=== PATIENT | female | born 1945 | race Caucasian/White ===

== ENCOUNTER 2017-09-09 18:37 | Inpatient (IN) | payer OTHER, MEDICARE ==
[~2017-09-09] VITALS: Ht 162.6 cm; Wt 67.0 kg
[~2017-09-09 18:37] MED LIST: AUGM500T7 PO; DOXY100T PO; HYZA50TA2 PO; NOVOINJ SC
[2017-09-09 18:39] VITALS: BP 153/72; PULSE 98; RESP 14; TEMP 98.8; O2SAT 95
--- NOTE | 2017-09-09 19:28 | PD ---
HPI Chief Complaint: Cardiac Complaint Time Seen by Provider: 19:10 Travel History International Travel<30 days: No Contact w/Intl Traveler<30days: No History of Present Illness HPI Patient is a 71-year-old female presents emergency department for evaluation of shortness of breath she says since November. 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 Sumaya Muniz today for her first appointment and he sent her here for further evaluation. According to the patient and her fianc he wants to do a stress and probably a cath on her. She states that shortness of breath been gradually worsening since November but over the past 3 months it has gotten significantly worse. No chest pain, no GI bleeding symptoms, no abdominal pain no headache. She states symptoms are severe, gradually worsening over the past few months, context is history of congestive heart failure and coronary artery bypass graft PFSH Past Medical History Arthritis: No Asthma: No Blood Disorders: No Anxiety: No Depression: No Heart Rhythm Problems: No Cancer: No Cardiovascular Problems: No High Cholesterol: No Chest Pain: No Congestive Heart Failure: No COPD: No Cerebrovascular Accident: No Diabetes: Yes Diminished Hearing: No GERD: No Glaucoma: No Genitourinary: No Headaches: Yes Hepatitis: No Hiatal Hernia: No Hypertension: Yes Immune Disorder: No Kidney Stones: No Musculoskeletal: No Neurologic: No Psychiatric: No Reproductive: No Respiratory: No Migraines: No Myocardial Infarction: No Renal Failure: No Seizures: No Thyroid Disease: No Ulcer: No Menopausal: Yes : 4 Para: 4 Past Surgical History Abdominal Surgery: Yes (GALLD BLADDER) Appendectomy: No Cardiac Surgery: No Cholecystectomy: Yes Ear Surgery: No Endocrine Surgery: No Eye Surgery: Yes Genitourinary Surgery: No Gynecologic Surgery: Yes (HYSTERECTOMY) Hysterectomy: Yes Oral Surgery: No Pacemaker: No Thoracic Surgery: No Other Surgery: Yes Social History Alcohol Use: No Tobacco Use: No Substance Use: No Allergies-Medications (Allergen,Severity, Reaction): Coded Allergies: codeine (Unverified Allergy, Severe, SEVERE MOOD SWINGS, 03/23/17) etodolac (Unverified Allergy, Severe, Chest Pain, 03/23/17) iodine (Unverified Allergy, Severe, EDEMA, 03/23/17) loratadine (Unverified Allergy, Severe, Severe Dyspnea and swelling, ) metformin (Unverified Allergy, Severe, N/V, 03/23/17) potassium iodide (Unverified Allergy, Severe, EDEMA, 03/23/17) povidone-iodine (Unverified Allergy, Severe, EDEMA, 03/23/17) pseudoephedrine (Unverified Allergy, Severe, THROAT SWELLS, 03/23/17) sodium iodide (Unverified Allergy, Severe, EDEMA, 03/23/17) sodium iodide (Unverified Allergy, Severe, EDEMA, 03/23/17) Sulfa (Sulfonamide Antibiotics) (Unverified Allergy, Mild, 03/23/17) dizzy levofloxacin (Unverified Adverse Reaction, Severe, NAUSEA, VOMITING, DIZZINESS, 03/23/17) sulfamethoxazole (Unverified Adverse Reaction, Severe, NAUSEA, VOMITING, DIZZINESS, 03/23/17) trimethoprim (Unverified Adverse Reaction, Severe, NAUSEA, VOMITING, DIZZINESS, 03/23/17) Uncoded Allergies: Tylenol Sinus (Allergy, Severe, Dyspnea and Swelling, 01/11/09) Reported Meds & Prescriptions Reported Meds & Active Scripts Active Reported Augmentin 500MG/125MG (Amoxicillin/Clavulanate Potassium) 500 Mg Tab 500 Mg PO Q12H Doxycycline Hyclate 100 mg (Doxycycline Hyclate) 100 Mg Tab 100 Mg PO BID Hyzaar 50-12.5 (Losartan Potassium-Hct 50-12.5) 50 Mg/12.5 Mg Tab 1 Tab PO HS Novolog Penfill (Insulin Aspart) 100 Unit/Ml Inj 5 SC DIRECTED <150 no coverage. >150 5 units for everY increments of 50 Review of Systems Except as stated in HPI: all other systems reviewed are Neg Physical Exam Narrative GENERAL: Well-developed, well-nourished, pale SKIN: Focused skin assessment warm/dry. Pale with conjunctival pallor HEAD: Atraumatic. Normocephalic. EYES: Pupils equal and round. No scleral icterus. No injection or drainage. ENT: No nasal bleeding or discharge. Mucous membranes pink and moist. NECK: Trachea midline. No JVD. CARDIOVASCULAR: Regular rate and rhythm. No murmur appreciated. RESPIRATORY: No accessory muscle use. Bibasilar rales. Breath sounds equal bilaterally. GASTROINTESTINAL: Abdomen soft, non-tender, nondistended. Hepatic and splenic margins not palpable. MUSCULOSKELETAL: No obvious deformities. No clubbing. No cyanosis. 2+ pitting edema bilateral lower extremities from the knee Distally.. NEUROLOGICAL: Awake and alert. No obvious cranial nerve deficits. Motor grossly within normal limits. Normal speech. PSYCHIATRIC: Appropriate mood and affect; insight and judgment normal. Data Data Last Documented VS Vital Signs Date Time Temp Pulse Resp B/P (MAP) Pulse Ox O2 Delivery O2 Flow Rate FiO2 09/09/17 20:37 26 98 Nasal Cannula 2.00 09/09/17 20:23 95 09/09/17 18:39 98.8 Orders Orders Electrocardiogram (09/09/17 19:19) B-Type Natriuretic Peptide (09/09/17 19:19) Ckmb (Isoenzyme) Profile (09/09/17 19:19) Complete Blood Count With Diff (09/09/17 19:19) Comprehensive Metabolic Panel (09/09/17 19:19) Magnesium (Mg) (09/09/17 19:19) Prothrombin Time / Inr (Pt) (09/09/17 19:19) Act Partial Throm Time (Ptt) (09/09/17 19:19) Troponin I (09/09/17 19:19) Chest, Single Ap (09/09/17 19:19) Ecg Monitoring (09/09/17 19:19) Iv Access Insert/Monitor (09/09/17 19:19) Oximetry (09/09/17 19:19) Oxygen Administration (09/09/17 19:19) Sodium Chloride 0.9% Flush (Ns Flush) (09/09/17 19:30) Type And Screen (09/09/17 19:47) Furosemide Inj (Lasix Inj) (09/09/17 20:00) Aspirin Chew (Aspirin Chew) (09/09/17 20:15) Clopidogrel (Plavix) (09/09/17 20:15) CKMB (09/09/17 19:40) CKMB% (09/09/17 19:40) Blood Culture (09/09/17 20:37) Ceftriaxone Inj (Rocephin Inj) (09/09/17 20:45) Azithromycin Inj (Zithromax Inj) (09/09/17 20:45) Admit Order (Ed Use Only) (09/09/17 ) Labs Laboratory Tests Test 09/09/17 19:40 White Blood Count 4.9 TH/MM3 Red Blood Count 3.86 MIL/MM3 Hemoglobin 10.8 GM/DL Hematocrit 34.0 % Mean Corpuscular Volume 88.0 FL Mean Corpuscular Hemoglobin 28.0 PG Mean Corpuscular Hemoglobin Concent 31.8 % Red Cell Distribution Width 17.7 % Platelet Count 301 TH/MM3 Mean Platelet Volume 9.2 FL Neutrophils (%) (Auto) 57.9 % Lymphocytes (%) (Auto) 27.9 % Monocytes (%) (Auto) 12.1 % Eosinophils (%) (Auto) 1.0 % Basophils (%) (Auto) 1.1 % Neutrophils # (Auto) 2.8 TH/MM3 Lymphocytes # (Auto) 1.4 TH/MM3 Monocytes # (Auto) 0.6 TH/MM3 Eosinophils # (Auto) 0.0 TH/MM3 Basophils # (Auto) 0.1 TH/MM3 CBC Comment DIFF FINAL Differential Comment Prothrombin Time 11.4 SEC Prothromb Time International Ratio 1.1 RATIO Activated Partial Thromboplast Time 25.5 SEC Blood Urea Nitrogen 37 MG/DL Creatinine 2.06 MG/DL Random Glucose 130 MG/DL Total Protein 7.4 GM/DL Albumin 2.8 GM/DL Calcium Level 9.2 MG/DL Magnesium Level 2.1 MG/DL Alkaline Phosphatase 144 U/L Aspartate Amino Transf (AST/SGOT) 23 U/L Alanine Aminotransferase (ALT/SGPT) 20 U/L Total Bilirubin 0.8 MG/DL Sodium Level 139 MEQ/L Potassium Level 4.0 MEQ/L Chloride Level 107 MEQ/L Carbon Dioxide Level 24.1 MEQ/L Anion Gap 8 MEQ/L Estimat Glomerular Filtration Rate 24 ML/MIN Total Creatine Kinase 120 U/L Creatine Kinase MB 3.8 NG/ML Troponin I LESS THAN 0.02 NG/ML B-Type Natriuretic Peptide 2658 PG/ML [facility] Medical Decision Making Medical Screen Exam Complete: Yes Emergency Medical Condition: Yes Differential Diagnosis CHF, anemia, ACS, [place]. Narrative Course Patient room to the emergency department, given Lasix, aspirin and Plavix per Dr. Muniz's instructions, he would like the patient admitted to the hospital , discussed with patient and her fianc and they are agreeable, basic labs are showing a negative troponin, elevated BNP, creatinine is elevated as well which is new for her. Discussed with Dr. Mckeon for admission and she is agreeable. Diagnosis Primary Impression: Pulmonary edema Additional Impression: Congestive heart failure Admitting Information Admitting Physician Requests: Admit Condition: Everett Dominguez MD Sep 09, 2017 19:28
[2017-09-09] MEDS ORDERED: SODIUM CHLORIDE 0.9% FLUSH 10 ML FLUSH IVF PRN (19:30)
[2017-09-09 19:56] LABS: AUTOMATED NEUTROPHIL # 2.8 TH/MM3 (1.8-7.7); BASOPHIL # 0.1 TH/MM3 (0-0.2); BASOPHIL % 1.1 % (0.0-2.0); HEMOGLOBIN 10.8 GM/DL (11.6-15.3); LYMPH % 27.9 % (9.0-44.0); LYMPHOCYTE # 1.4 TH/MM3 (1.0-4.8); MEAN CORPUSCULAR HGB CONC 31.8 % (32.0-36.0); MEAN PLATELET VOLUME 9.2 FL (7.0-11.0); MONO % 12.1 % (0.0-8.0); MONOCYTE # 0.6 TH/MM3 (0-0.9); NEUT % 57.9 % (16.0-70.0); PLATELET COUNT 301 TH/MM3 (150-450); RED BLOOD COUNT 3.86 MIL/MM3 (4.00-5.30); RED CELL DISTRIBUTION WIDTH 17.7 % (11.6-17.2); WHITE BLOOD COUNT 4.9 TH/MM3 (4.0-11.0)
[2017-09-09] MEDS ORDERED: FUROSEMIDE 40 MG/4 ML VIAL IV PUSH ONE (20:00)
[2017-09-09 20:05] LABS: INTERNATIONAL NORMALIZED RATIO 1.1 RATIO; PROTHROMBIN TIME - PATIENT 11.4 SEC (9.8-11.6)
--- NOTE | 2017-09-09 20:11 | RADRPT ---
EXAM DATE/TIME: 09/09/2017 19:42 [place] COMPARISON: No previous studies available for comparison. INDICATIONS : Shortness of breath, cough, congestion, weakness, and chest pain. MEDICAL HISTORY : Cardiac. SURGICAL HISTORY : CABG. ENCOUNTER: Initial ACUITY: 1 day PAIN SCORE: 5/10 LOCATION: Bilateral chest FINDINGS: Small bilateral pleural effusions are noted. Bibasilar atelectasis and/or infiltrates are noted. The heart is subtly prominent. Median sternotomy wires are noted status post cardiac surgery. CONCLUSION: Small bilateral pleural effusions. Bibasilar atelectasis and/or infiltrates. Mild cardiomegaly. Everett Matute MD on September 09, 2017 at 20:07 Board Certified Radiologist. This report was verified electronically.
[2017-09-09 20:13] LABS: ALBUMIN 2.8 GM/DL (3.4-5.0); BICARBONATE 24.1 MEQ/L (21.0-32.0); BLOOD UREA NITROGEN 37 MG/DL (7-18); CALCIUM 9.2 MG/DL (8.5-10.1); CHLORIDE 107 MEQ/L (98-107); CREATININE 2.06 MG/DL (0.50-1.00); GLOMERULAR FILTRATION RATE 24 ML/MIN (>89); GLUCOSE,RANDOM 130 MG/DL (74-106); MAGNESIUM 2.1 MG/DL (1.5-2.5); SODIUM (NA) 139 MEQ/L (136-145)
[2017-09-09] MEDS ORDERED: CLOPIDOGREL 300 MG TAB PO ONE (20:15)
[2017-09-09] MEDS ORDERED: ASPIRIN 81 MG CHEW TAB CHEW ONE (20:15)
[2017-09-09 20:18] LABS: ALKALINE PHOSPHATASE 144 U/L (45-117); ALT (GPT) 20 U/L (10-53); AST (GOT) 23 U/L (15-37); TOTAL BILIRUBIN ADULT 0.8 MG/DL (0.2-1.0); TOTAL PROTEIN 7.4 GM/DL (6.4-8.2); TROPONIN I LESS THAN 0.02 NG/ML (0.02-0.05)
[2017-09-09 20:23] VITALS: BP 165/99; PULSE 95; RESP 26; O2SAT 98
[2017-09-09 20:37] VITALS: RESP 26; O2SAT 98
[2017-09-09] MEDS ORDERED: cefTRIAXone INJ 1,000 MG in SODIUM CHLORIDE 0.9% INJ 100 ML IV ONE (20:45)
[2017-09-09] MEDS ORDERED: AZITHROMYCIN INJ 500 MG in SODIUM CHLOR 0.9% 250 ML INJ 250 ML IV ONE (20:45)
[2017-09-09] MEDS ORDERED: SENNOSIDES 8.6 MG TAB PO PRN (22:00)
[2017-09-09] MEDS ORDERED: SODIUM CHLORIDE 0.9% FLUSH 10 ML FLUSH IV FLUSH PRN (22:00)
[2017-09-09] MEDS ORDERED: LACTULOSE SYRUP 20 GM/30 ML CUP PO PRN (22:00)
[2017-09-09] MEDS ORDERED: NALOXONE HCL 0.4 MG/ML AMP IV PUSH PRN (22:00)
[2017-09-09] MEDS ORDERED: ONDANSETRON HCL 4 MG/2 ML VIAL IVP PRN (22:00)
[2017-09-09] MEDS ORDERED: BISACODYL 10 MG SUPP RECTAL PRN (22:00)
[2017-09-09 22:15] LABS: AMORPHOUS SEDIMENT, URINE RARE; BACTERIA, URINE MANY /hpf; BILIRUBIN, URINE NEG (NEG); BLOOD, URINE SMALL (NEG); GLUCOSE,URINE NEG (NEG); HYALINE CAST, URINE 6 /lpf (RARE); KETONE, URINE TRACE mg/dL (NEG); NITRITE,URINE NEG (NEG); PH, URINE 6.5 (5.0-8.5); SQUAMOUS EPITHELIAL CELL URINE 20 /hpf (0-5); URINE COLOR YELLOW (YELLW/STRAW); URINE LEUKOCYTE ESTERASE LARGE (NEG); WHITE BLOOD CELL CLUMPS OCC
[2017-09-09] MEDS ORDERED: GLUCAGON 1 MG/ML VIAL OTHER PRN (22:15)
[2017-09-09] MEDS ORDERED: DEXTROSE 50% IN WATER 50 ML VIAL(D50) IV PUSH PRN (22:15)
[2017-09-09 22:21] VITALS: BP 146/68; PULSE 98; RESP 20; O2SAT 98
[2017-09-10] VITALS (19 sets, daily range): BP systolic 128–152; BP diastolic 54–79; PULSE 82–94; RESP 16–24; TEMP 96.3–98; O2SAT 94–100
--- NOTE | 2017-09-10 02:00 | HHI.HP ---
[facility] Cate Hughes MD Admission Diagnosis CHF EXACERBATION. Diagnoses: Travel History International Travel<30 Days: No Contact w/Intl Traveler <30 Da: No Traveled to Known Affected Are: No History of Present Illness 71-year-old female with a past medical history significant for CHF (no recent echo for comparison), COPD, insulin-dependent diabetes mellitus, CAD, PVD and hyperlipidemia presents to the emergency department after being sent by her chute puller, Dr. Muniz. The patient reports a 3 to four-month history of progressively worsening shortness of breath. She states it is worse with exertion and that she can barely walk. She also reports an inability to lie flat without gasping for air. The patient also endorses chest pain/pressure that is intermittent and last occurred 1-2 hours ago. She endorses nausea and chills. Review of Systems Except as stated in HPI: all other systems reviewed are Neg Past Family Social History Past Medical History CHF CK D IDDM CAD PVD HLD Past Surgical History CABG 3 Stent 1 Leg stent Reported Medications Reported Meds & Active Scripts Active Reported Augmentin (Amoxicillin/Clavulanate Potassium) 500 Mg Tab 500 Mg PO Q12H Doxycycline Hyclate 100 Mg Tab 100 Mg PO BID Hyzaar 50-12.5 (Losartan Potassium-Hct 50-12.5) 50 Mg/12.5 Mg Tab 1 Tab PO HS Novolog Penfill (Insulin Aspart) Inj 5 SC DIRECTED <150 no coverage. >150 5 units for everY increments of 50 Allergies: Coded Allergies: codeine (Unverified Allergy, Severe, SEVERE MOOD SWINGS, 03/23/17) etodolac (Unverified Allergy, Severe, Chest Pain, 03/23/17) iodine (Unverified Allergy, Severe, EDEMA, 03/23/17) loratadine (Unverified Allergy, Severe, Severe Dyspnea and swelling, ) metformin (Unverified Allergy, Severe, N/V, 03/23/17) potassium iodide (Unverified Allergy, Severe, EDEMA, 03/23/17) povidone-iodine (Unverified Allergy, Severe, EDEMA, 03/23/17) pseudoephedrine (Unverified Allergy, Severe, THROAT SWELLS, 03/23/17) sodium iodide (Unverified Allergy, Severe, EDEMA, 03/23/17) sodium iodide (Unverified Allergy, Severe, EDEMA, 03/23/17) Sulfa (Sulfonamide Antibiotics) (Unverified Allergy, Mild, 03/23/17) dizzy levofloxacin (Unverified Adverse Reaction, Severe, NAUSEA, VOMITING, DIZZINESS, 03/23/17) sulfamethoxazole (Unverified Adverse Reaction, Severe, NAUSEA, VOMITING, DIZZINESS, 03/23/17) trimethoprim (Unverified Adverse Reaction, Severe, NAUSEA, VOMITING, DIZZINESS, 03/23/17) Uncoded Allergies: Tylenol Sinus (Allergy, Severe, Dyspnea and Swelling, 01/11/09) Family History Denies family history of DM/CAD Social History Denies alcohol, tobacco and illicit drugs Physical Exam Vital Signs Vital Signs Date Time Temp Pulse Resp B/P (MAP) Pulse Ox O2 Delivery O2 Flow Rate FiO2 09/10/17 00:47 09/10/17 00:30 97.4 94 20 143/71 (95) 100 09/09/17 22:21 98 20 146/68 (94) 98 Nasal Cannula 2.00 09/09/17 20:37 26 98 Nasal Cannula 2.00 09/09/17 20:37 98 Nasal Cannula 2.00 09/09/17 20:23 95 26 165/99 (121) 98 09/09/17 18:39 98.8 98 14 153/72 (99) 95 Physical Exam GENERAL: female sitting up in bed in mild distress SKIN: No rashes, ecchymoses or lesions. Cool and dry. HEAD: Atraumatic. Normocephalic. No temporal or scalp tenderness. EYES: Pupils equal round and reactive. Extraocular motions intact. No scleral icterus. No injection or drainage. ENT: Nose without bleeding, purulent drainage or septal hematoma. Throat without erythema, tonsillar hypertrophy or exudate. Uvula midline. Airway patent. NECK: Trachea midline. No JVD or lymphadenopathy. Supple, nontender, no meningeal signs. CARDIOVASCULAR: Regular rate and rhythm without murmurs, gallops, or rubs. RESPIRATORY: Bilateral crackles. GASTROINTESTINAL: Abdomen soft, non-tender, nondistended. No hepato-splenomegaly , or palpable masses. No guarding. MUSCULOSKELETAL: 2+ pitting edema to the knees. No calf tenderness. NEUROLOGICAL: Awake and alert. Cranial nerves II through XII intact. Motor and sensory grossly within normal limits. Normal speech. Laboratory Laboratory Tests Test 09/09/17 19:40 09/09/17 21:50 White Blood Count 4.9 Red Blood Count 3.86 Hemoglobin 10.8 Hematocrit 34.0 Mean Corpuscular Volume 88.0 Mean Corpuscular Hemoglobin 28.0 Mean Corpuscular Hemoglobin Concent 31.8 Red Cell Distribution Width 17.7 Platelet Count 301 Mean Platelet Volume 9.2 Neutrophils (%) (Auto) 57.9 Lymphocytes (%) (Auto) 27.9 Monocytes (%) (Auto) 12.1 Eosinophils (%) (Auto) 1.0 Basophils (%) (Auto) 1.1 Neutrophils # (Auto) 2.8 Lymphocytes # (Auto) 1.4 Monocytes # (Auto) 0.6 Eosinophils # (Auto) 0.0 Basophils # (Auto) 0.1 CBC Comment DIFF FINAL Differential Comment Prothrombin Time 11.4 Prothromb Time International Ratio 1.1 Activated Partial Thromboplast Time 25.5 Blood Urea Nitrogen 37 Creatinine 2.06 Random Glucose 130 Total Protein 7.4 Albumin 2.8 Calcium Level 9.2 Magnesium Level 2.1 Alkaline Phosphatase 144 Aspartate Amino Transf (AST/SGOT) 23 Alanine Aminotransferase (ALT/SGPT) 20 Total Bilirubin 0.8 Sodium Level 139 Potassium Level 4.0 Chloride Level 107 Carbon Dioxide Level 24.1 Anion Gap 8 Estimat Glomerular Filtration Rate 24 Total Creatine Kinase 120 Creatine Kinase MB 3.8 Troponin I LESS THAN 0.02 B-Type Natriuretic Peptide 2658 Urine Color YELLOW Urine Turbidity CLOUDY Urine pH 6.5 Urine Specific [place] 1.015 Urine Protein 300 Urine Glucose (UA) NEG Urine Ketones TRACE Urine Occult Blood SMALL Urine Nitrite NEG Urine Bilirubin NEG Urine Urobilinogen LESS THAN 2.0 Urine Leukocyte Esterase LARGE Urine RBC 5 Urine WBC Urine WBC Clumps OCC Urine Squamous Epithelial Cells 20 Urine Amorphous Sediment RARE Urine Bacteria MANY Urine Hyaline Casts 6 Microscopic Urinalysis Comment CULTURE INDICATED Date/Time Source Procedure Growth Status 09/09/17 21:25 Blood Peripheral Aerobic Blood Culture Pending Received 09/09/17 21:25 Blood Peripheral Anaerobic Blood Culture Pending Received 09/09/17 21:50 Urine Random Urine Urine Culture Pending Received Result Diagram: 09/09/17193909/09/171939 Caprini VTE Risk Assessment Caprini VTE Risk Assessment: Mod/High Risk (score >= 2) Caprini Risk Assessment Model Point Value = 1 Point Value = 2 Point Value = 3 Point Value = 5 Age 41-60 Minor surgery BMI > 25 kg/m2 Swollen legs Varicose veins or History of unexplained or recurrent spontaneous Oral contraceptives or hormone replacement Sepsis (< 1 month) Serious lung disease, including pneumonia (< 1 month) Abnormal pulmonary function Acute myocardial infarction Congestive heart failure (< 1 month) History of inflammatory bowel disease Medical patient at bed rest Age 61-74 Arthroscopic surgery Major open surgery (> 45 min) Laparoscopic surgery (> 45 min) Malignancy Confined to bed (> 72 hours) Immobilizing plaster cast Central venous access Age >= 75 History of VTE Family history of VTE Factor V Leiden Prothrombin [id number] Lupus anticoagulant Anticardiolipin antibodies Elevated serum homocysteine Heparin-induced thrombocytopenia Other congenital or acquired thrombophilia Stroke (< 1 month) Elective arthroplasty Hip, pelvis, or leg fracture Acute spinal cord injury (< 1 month) Prophylaxis Regimen Total Risk Factor Score Risk Level Prophylaxis Regimen 0-1 Low Early ambulation 2 Moderate Order ONE of the following: *Sequential Compression Device (SCD) *Heparin 5000 units SQ BID 3-4 Higher Order ONE of the following medications: *Heparin 5000 units SQ TID *Enoxaparin/Lovenox 40 mg SQ daily (WT < 150 kg, CrCl > 30 mL/min) *Enoxaparin/Lovenox 30 mg SQ daily (WT < 150 kg, CrCl > 10-29 mL/min) *Enoxaparin/Lovenox 30 mg SQ BID (WT < 150 kg, CrCl > 30 mL/min) AND/OR *Sequential Compression Device (SCD) 5 or more Highest Order ONE of the following medications: *Heparin 5000 units SQ TID (Preferred with Epidurals) *Enoxaparin/Lovenox 40 mg SQ daily (WT < 150 kg, CrCl > 30 mL/min) *Enoxaparin/Lovenox 30 mg SQ daily (WT < 150 kg, CrCl > 10-29 mL/min) *Enoxaparin/Lovenox 30 mg SQ BID (WT < 150 kg, CrCl > 30 mL/min) AND *Sequential Compression Device (SCD) Assessment and Plan Assessment and Plan Assessment/plan: 1. CHF Chest x-ray significant for small bilateral pleural effusions, personally reviewed BNP 2658 IV Lasix Monitor I's and O's Supplemental oxygen when necessary 2. Pneumonia Bibasilar atelectasis versus infiltrate Rocephin/azithromycin DuoNeb's 3. Chest pain/CAD Resolved this time EKG pending Initial troponin negative ACS rule out pending; serial troponins/EKGs Cardiology consulted, appreciate recommendations - patient's chute puller is Dr. Muniz 4. Insulin-dependent diabetes mellitus Sliding scale insulin as patient nothing by mouth Monitor blood glucose 5. Chronic kidney disease Creatinine 2.06, baseline unknown Monitor renal function 6. CAD/PVD/HLD Continue home medications once medication reconciliation completed FEN NPO Electrolytes: monitor and replete prn Heparin Roz Mckeon MD Sep 10, 2017 02:00
[2017-09-10] MEDS ORDERED: FURO20TA PO (02:19)
[2017-09-10 02:38] LABS: TROPONIN I LESS THAN 0.02 NG/ML (0.02-0.05)
[2017-09-10 05:00] LABS: BASOPHIL % 0.8 % (0.0-2.0); EOSINOPHIL # 0.1 TH/MM3 (0-0.4); EOSINOPHIL % 1.6 % (0.0-4.0); HEMATOCRIT 31.2 % (35.0-46.0); HEMOGLOBIN 10.1 GM/DL (11.6-15.3); LYMPH % 35.2 % (9.0-44.0); LYMPHOCYTE # 1.5 TH/MM3 (1.0-4.8); MEAN CELL VOLUME 87.7 FL (80.0-100.0); MEAN CORPUSCULAR HEMOGLOBIN 28.4 PG (27.0-34.0); MEAN CORPUSCULAR HGB CONC 32.3 % (32.0-36.0); MEAN PLATELET VOLUME 8.9 FL (7.0-11.0); MONO % 15.5 % (0.0-8.0); MONOCYTE # 0.7 TH/MM3 (0-0.9); NEUT % 46.9 % (16.0-70.0); PLATELET COUNT 275 TH/MM3 (150-450); RED BLOOD COUNT 3.56 MIL/MM3 (4.00-5.30); RED CELL DISTRIBUTION WIDTH 18.3 % (11.6-17.2); WHITE BLOOD COUNT 4.4 TH/MM3 (4.0-11.0)
[2017-09-10 05:15] LABS: BICARBONATE 22.1 MEQ/L (21.0-32.0); CALCIUM 8.8 MG/DL (8.5-10.1); CREATININE 1.96 MG/DL (0.50-1.00)
[2017-09-10] MEDS: INSULIN ASPART SUPPLEMENTAL SCALE SQ SCH ×3 (08:00→20:49)
[2017-09-10] MEDS: FUROSEMIDE 40 MG/4 ML VIAL IV PUSH SCH ×2 (09:25→18:07)
[2017-09-10] MEDS: SODIUM CHLORIDE 0.9% FLUSH 10 ML FLUSH IV FLUSH SCH ×2 (09:26→20:46)
[2017-09-10] MEDS: HEPARIN SODIUM - SQ 10,000 UNITS/ML VIAL SQ SCH ×2 (09:26→20:49)
[2017-09-10 11:27] LABS: TROPONIN I LESS THAN 0.02 NG/ML (0.02-0.05)
--- NOTE | 2017-09-10 13:01 | MB ---
cc: SHRAVAN SANDHU DO DATE OF CONSULTATION 09/10/2017 REASON FOR CONSULTATION Congestive heart failure. HISTORY OF PRESENT ILLNESS Helene Sanchez is a pleasant 71-year-old female who I just met in the office yesterday for the first time and while there, she was complaining of significant shortness of breath, inability to lay down, possible fevers and chills and because of this, I sent her to the emergency room as she appeared to be in acute systolic heart failure not responding to p.o. Lasix. Her primary care physician was seeing her and increased her Lasix to three times a day, but at that time, she was not able to urinate much and so was back down to once a day. Since last night. she states that she has been doing well and breathing better. She denies any chest pain. She apparently told the hospitalist that she had chest pain occasionally, but when talking to her she points to the umbilical/epigastric region. PAST MEDICAL HISTORY 1. Acute on chronic congestive heart failure. 2. CKD 3. Diabetes mellitus 4. CAD 5. Peripheral vascular disease 6. Hyperlipidemia PAST SURGICAL HISTORY 1. CABG x3. 2. Recent drug-eluting stent to obtuse marginal (November 2016 at [facility]) 3. Previous stenting of her legs. ALLERGIES 1. CODEINE 2. ETODOLAC 3. IODINE 4. LORATADINE 5. METFORMIN 6. POTASSIUM 7. POVIDONE 8. PSEUDOEPHEDRINE 9. LEVOFLOXACIN 10. SULFAMETHOXAZOLE 11. TRIMETHOPRIM MEDICATIONS 1. Augmenting 500 mg twice a day 2. Doxycycline 100 mg b.i.d. 3. Losartan/hydrochlorothiazide 50/12.5 mg every night 4. Lasix 20 mg daily 5. Insulin 5 units subcu as directed FAMILY HISTORY Denies premature coronary artery disease or sudden cardiac within the family. SOCIAL HISTORY Previously smoked, but quit a number of months ago. Denies alcohol or drug abuse. REVIEW OF SYSTEMS 14-systems were reviewed including osteopathic pertinent positives and negatives as above, otherwise negative. PHYSICAL EXAMINATION VITAL SIGNS: Temperature 97.5, heart rate 90, blood pressure 147/68, respirations 20, pulse ox 97% on two liters. GENERAL: In general, the patient appears well in no acute distress, alert awake and oriented x3. HEAD, EYES, EARS, NOSE, AND THROAT: Extraocular muscles intact. Mucous membranes moist. NECK: Supple. No JVD at 45 degrees. No carotid bruits heard bilaterally. Carotid upstroke is brisk in nature. HEART: Regular rate and rhythm. Positive first and second heart sounds with no murmurs, gallops or rubs. LUNGS: Decreased breath sounds bilaterally with minimal rales at the bases. ABDOMEN: Soft, nontender, nondistended. No organomegaly noted. EXTREMITIES: Show trace to 1+ pitting edema bilaterally. NEUROLOGIC: No focal deficits. SKIN: Warm, dry and intact. OSTEOPATHIC: No kyphoscoliosis, lordosis or paraspinal tender points. LABORATORY FINDINGS Hemoglobin 10.1, hematocrit 31.2, platelets 275. Potassium 4.2, BUN 38, creatinine 1.96, troponin negative x3. BNP 2658. Electrocardiogram (September 10, 2017 at the 02:09) sinus rhythm, ST-T wave changes laterally. Compared to previous EKG in my office from March, no significant change. IMPRESSION 1. Acute on chronic congestive heart failure, unsure at this time whether systolic or diastolic in nature. 2. Possible pneumonia. 3. Coronary artery disease with a history of coronary artery bypass grafting. 4. Diabetes mellitus 5. Acute kidney injury on chronic kidney disease. 6. History of peripheral vascular disease. RECOMMENDATIONS 1. Ms. Sanchez appeared to have acute on chronic congestive heart failure and she will need to be diuresed. I believe that she got into trouble because of the bioavailability of oral Lasix and swelling of her abdomen. On discharge, she should most likely be placed on either Bumex or torsemide. 2. She previously was on aspirin and Effient, but was told by both her primary care physician and strapping machine operator that she only need to be on Effient. She then stopped Effient because she felt like she was allergic to and so she has been on no antiplatelet agents. On arrival to the emergency room, she was reloaded with aspirin and Plavix and can stay on aspirin 81 mg and Plavix 75 mg daily. 3. We will check a 2-D echo to look at her overall left ventricular function, cardiac structure and possible valvopathies. 4. Overall, her troponins have been negative showing no acute coronary syndrome. I did discuss with her consideration of stress testing to rule out significant ischemia, but she believes that the last time she had a stress test that it injured her kidneys and she will not go through with this. Overall, I think that she does not need cardiac catheterization at this time as I believe that this episode is most likely due to her having trouble with her Lasix. 5. My other concern was with her coughing immensely as well as bringing up sputum. She has been placed on antibiotics per the primary team. 6. Further recommendations will be made based on the hospital course. Thank you for allowing me to see Helene Sanchez. If there are any questions, please do not hesitate to call. Shravan Sandhu DO VGP/DJL /12:11 PM /12:30 PM
--- NOTE | 2017-09-10 15:34 | PD.WCN.NOT ---
Wound Consult Description: Consult placed for WOUND MANAGMENT of bilateral feet per GABRIELA Thomas Communicated with: Dr Bernard Yepez, RN Patient Recommendation: Apply skin barrier film to bilateral lower extremity dry wound beds BID and PRN and leave open to air Follow up with Dr Pool Podiatry outpatient upon discharge. Additional Information: Patient seen on for evaluation of bilateral feet wounds. There are no open wounds noted to bilateral feet. There is intact black eschar noted to the 4th digit on right foot measuring ~0.3cm x 0.6cm x 0cm that was left open to air. There is discoloration and dryness noted to left plantar/trans met head amp site that was left open to air and recommended to have skin barrier film applied BID and PRN and left open to air. Patient states that she sees Dr Pool in [place] [facility] as an outpatient and the last dressing orders she obtained were for a vinegar solution for cleansing and to apply Betadine and leave open to air. Upon reading the patients allergies it is noted that the patient is allergic to povidone-iodine. Therefore Betadine is not recommended at this time until patient allergies can be confirmed. Attempted to contact Physician office to confirm dressing changes, however fiction writer was on hold for an inconsiderate amount of time and was unable to confirm that patient was given instructions for Povidone-Iodine with an allergy. Dr Estrada paged for recommendations and notification of patient at home treatment vs fiction writer recommendations. Nataly Joiner [facility] Sep 10, 2017 15:34
[2017-09-10] MEDS ORDERED: PILL SPLITTER OTHER PRN (18:00)
--- NOTE | 2017-09-10 19:43 | EKG ---
Date Performed: 09/10/2017 Time Performed: 02:09:56 PTAGE: 71 years EKG: Sinus rhythm Extensive ST-T changes may be due to myocardial ischemia Abnormal ECG Since the prior tracing, there has been no significant change PREVIOUS TRACING : 09/09/2017 19.54 DOCTOR: Osiel Pérez Interpretating Date/Time 09/10/2017 19:42:33
--- NOTE | 2017-09-10 19:55 | EKG ---
Date Performed: 09/09/2017 Time Performed: 19:54:01 PTAGE: 71 years EKG: Sinus rhythm ST DEVIATION AND MODERATE T-WAVE ABNORMALITY, CONSIDER LATERAL ISCHEMIA Anterior ST-T wave change is more prominent from the prior tracing Clinical correlation is recommended ABNORMAL ECG PREVIOUS TRACING : 01/14/2012 07.27 DOCTOR: Osiel Pérez Interpretating Date/Time 09/10/2017 19:53:54
[2017-09-10] MEDS: cefTRIAXone INJ 1,000 MG in SODIUM CHLORIDE 0.9% INJ 100 ML IV SCH (20:46)
[2017-09-10] MEDS: LOSARTAN 50 MG TAB PO SCH (20:47)
[2017-09-10] MEDS: HYDROCHLOROTHIAZIDE 12.5 MG CAP PO SCH (20:47)
[2017-09-10] MEDS ORDERED: [UNRECOGNIZED DRUG - OTHER] PO SCH (21:00)
[2017-09-10] MEDS: AZITHROMYCIN INJ 250 MG in SODIUM CHLOR 0.9% 250 ML INJ 250 ML IV SCH (21:50)
[2017-09-11] VITALS (25 sets, daily range): BP systolic 121–157; BP diastolic 60–75; PULSE 82–95; RESP 17–18; TEMP 96.6–98.2; O2SAT 94–98
[2017-09-11 04:38] LABS: AUTOMATED NEUTROPHIL # 2.1 TH/MM3 (1.8-7.7); BASOPHIL # 0.1 TH/MM3 (0-0.2); BASOPHIL % 1.3 % (0.0-2.0); EOSINOPHIL # 0.1 TH/MM3 (0-0.4); EOSINOPHIL % 1.4 % (0.0-4.0); HEMATOCRIT 32.6 % (35.0-46.0); HEMOGLOBIN 10.3 GM/DL (11.6-15.3); LYMPH % 35.2 % (9.0-44.0); LYMPHOCYTE # 1.5 TH/MM3 (1.0-4.8); MEAN CELL VOLUME 88.1 FL (80.0-100.0); MEAN CORPUSCULAR HEMOGLOBIN 27.9 PG (27.0-34.0); MEAN CORPUSCULAR HGB CONC 31.7 % (32.0-36.0); MONO % 14.4 % (0.0-8.0); MONOCYTE # 0.6 TH/MM3 (0-0.9); NEUT % 47.7 % (16.0-70.0); PLATELET COUNT 306 TH/MM3 (150-450); RED CELL DISTRIBUTION WIDTH 18.3 % (11.6-17.2); WHITE BLOOD COUNT 4.3 TH/MM3 (4.0-11.0)
[2017-09-11 05:09] LABS: ALBUMIN 2.6 GM/DL (3.4-5.0); ALT (GPT) 16 U/L (10-53); AST (GOT) 19 U/L (15-37); BICARBONATE 21.5 MEQ/L (21.0-32.0); BLOOD UREA NITROGEN 35 MG/DL (7-18); CALCIUM 8.7 MG/DL (8.5-10.1); CHLORIDE 108 MEQ/L (98-107); CREATININE 2.06 MG/DL (0.50-1.00); GLOMERULAR FILTRATION RATE 24 ML/MIN (>89); GLUCOSE,RANDOM 97 MG/DL (74-106); SODIUM (NA) 139 MEQ/L (136-145)
[2017-09-11 05:10] LABS: ALKALINE PHOSPHATASE 127 U/L (45-117); TOTAL BILIRUBIN ADULT 0.5 MG/DL (0.2-1.0); TOTAL PROTEIN 7.2 GM/DL (6.4-8.2)
[2017-09-11] MEDS: INSULIN ASPART SUPPLEMENTAL SCALE SQ SCH ×4 (08:00→20:43)
[2017-09-11] MEDS: RESP: ALBUTEROL 2.5 MG/IPRATROPIUM 0.5 MG NEB (SCH) NEB ×2 (08:18→15:42)
--- NOTE | 2017-09-11 08:21 | HHI.PR ---
Subjective Remarks Patient seen and examined this morning. Temperature 96.6, pulse 93, respiratory rate 18, blood pressure 157/75, pulse ox 94 on room air. She is sitting in a chair comfortably. She reports that her symptoms are improving. She's no longer feeling as short of breath. She agrees that her swelling in her abdomen and legs has greatly improved. She feels that the oral Lasix was not helping her, however the IV Lasix is working really well. She thinks she is better however not back to baseline or ready to be discharged at this time. Objective Vitals Vital Signs Date Time Temp Pulse Resp B/P (MAP) Pulse Ox O2 Delivery O2 Flow Rate FiO2 09/11/17 07:15 96.6 93 18 157/75 (102) 94 09/11/17 06:08 83 09/11/17 05:02 85 09/11/17 04:02 92 09/11/17 03:25 97.2 87 17 155/74 (101) 97 09/11/17 03:06 92 09/11/17 02:18 90 09/11/17 01:18 82 09/11/17 00:02 88 09/10/17 23:59 96.3 91 18 142/69 (93) 98 09/10/17 23:59 88 09/10/17 22:00 94 09/10/17 21:00 90 09/10/17 20:15 90 09/10/17 19:45 97 09/10/17 19:30 96.9 90 17 128/54 (78) 94 09/10/17 19:16 88 09/10/17 15:30 97.9 90 16 150/70 (96) 96 09/10/17 12:00 98.0 89 16 152/68 (96) 95 I/O 09/10/17 09/10/17 09/10/17 09/11/17 09/11/17 09/11/17 07:00 15:00 23:00 07:00 15:00 23:00 Intake Total 250 ml 600 ml 360 ml Output Total 200 ml 600 ml 600 ml Balance 50 ml 0 ml -240 ml Intake Oral 0 ml 600 ml 360 ml IV Total 250 ml Output Urine Total 200 ml 600 ml 600 ml Emesis 0 ml # Voids 2 1 # Bowel Movements 0 0 1 Result Diagram: 09/11/17 0335 09/11/17 0335 Imaging Last Impressions Chest X-Ray 09/09/171918 Signed Impressions: Service Date/Time: September 19:42 - CONCLUSION: Small bilateral pleural effusions. Bibasilar atelectasis and/or infiltrates. Mild cardiomegaly. Everett Matute MD Objective Remarks GENERAL: female sitting up in bed in mild distress SKIN: No rashes, ecchymoses or lesions. Cool and dry. HEAD: Atraumatic. Normocephalic. No temporal or scalp tenderness. EYES: Pupils equal round and reactive. Extraocular motions intact. No scleral icterus. No injection or drainage. ENT: Nose without bleeding, purulent drainage or septal hematoma. Throat without erythema, tonsillar hypertrophy or exudate. Uvula midline. Airway patent. NECK: Trachea midline. No JVD or lymphadenopathy. Supple, nontender, no meningeal signs. CARDIOVASCULAR: Regular rate and rhythm without murmurs, gallops, or rubs. RESPIRATORY: Bilateral crackles. GASTROINTESTINAL: Abdomen soft, non-tender, nondistended. No hepato-splenomegaly , or palpable masses. No guarding. MUSCULOSKELETAL: 2+ pitting edema to the mid shins. No calf tenderness. NEUROLOGICAL: Awake and alert. Cranial nerves II through XII intact. Motor and sensory grossly within normal limits. Normal speech. Medications and IVs Current Medications Medications (Trade) Dose Ordered Sig/Briana Route Start Time Stop Time Status Last Admin (NS Flush) 2 ml UNSCH PRN IV FLUSH 09/09/17 22:00 (NS Flush) 2 ml BID IV FLUSH 09/10/17 09:00 09/10/17 20:46 (Tylenol) 650 mg Q4H PRN PO 09/09/17 22:00 (Zofran Inj) 4 mg Q6H PRN IVP 09/09/17 22:00 (Narcan Inj) 0.4 mg UNSCH PRN IV PUSH 09/09/17 22:00 (Milk Of Magnesia Liq) 30 ml Q12H PRN PO 09/09/17 22:00 (Senokot) 17.2 mg Q12H PRN PO 09/09/17 22:00 (Dulcolax Supp) 10 mg DAILY PRN RECTAL 2/1/18 22:00 (Lactulose Liq) 30 ml DAILY PRN PO 09/09/17 22:00 (Lasix Inj) 40 mg BID@,18 IV PUSH 09/10/17 09:00 09/10/17 18:07 Ceftriaxone Sodium 1000 mg/ Sodium Chloride 100 ml @ 200 mls/hr Q24H IV 09/10/17 21:00 09/10/17 20:46 Azithromycin 250 mg/Sodium Chloride 250 ml @ 250 mls/hr Q24H IV 09/10/17 22:00 09/10/17 21:50 (D50w (Vial) Inj) 50 ml UNSCH PRN IV PUSH 09/09/17 22:15 (Glucagon Inj) 1 mg UNSCH PRN OTHER 09/09/17 22:15 (NovoLOG SUPPLEMENTAL SCALE) 1 ACHS SLIDING SCALE SQ 09/10/17 08:00 09/10/17 18:06 (Duoneb Neb) 1 ampule Q4HR NEB PRN NEB 09/10/17 02:00 (Heparin Inj) 5,000 units Q12HR SQ 09/10/17 09:00 09/10/17 20:49 (Aspirin Chew) 81 mg DAILY CHEW 09/11/17 09:00 (Plavix) 75 mg DAILY PO 09/11/17 09:00 (Spiriva Inh) 18 mcg DAILY INH 09/11/17 09:00 (Duoneb Neb) 1 ampule Q8HR WHILE AWAKE NEB NEB 09/11/17 08:00 (Claritin) 5 mg DAILY PO 09/11/17 09:00 (Cozaar) 50 mg HS PO 09/10/17 21:00 09/10/17 20:47 (Microzide) 12.5 mg HS PO 09/10/17 21:00 09/10/17 20:47 (Pill Splitter) 1 ea UNSCH PRN OTHER 09/10/17 18:00 A/P Problem List: (1) CHF (congestive heart failure) ICD Code: I50.9 - Heart failure, unspecified Status: Acute Plan: This is a 71-year-old female with history of chronic congestive heart failure, chronic kidney disease, insulin-dependent diabetes, and CAD. She is being admitted for acute on chronic congestive heart failure exacerbation 1. CHF Chest x-ray significant for small bilateral pleural effusions, personally reviewed Cardiology consulted, recommendations appreciated BNP 2658 IV Lasix Monitor I's and O's Supplemental oxygen when necessary 2-D echo pending Upon discharge anticipate transition to Bumex or Torsemide 2. Pneumonia Bibasilar atelectasis versus infiltrate Rocephin/azithromycin DuoNeb's 3. Chest pain/CAD Resolved this time Initial troponin negative ACS rule out pending; troponins trended negative Cardiology consulted, appreciate recommendations - patient's director of sales is Dr. Muniz 4. Insulin-dependent diabetes mellitus Sliding scale insulin as patient nothing by mouth Monitor blood glucose 5. Chronic kidney disease Creatinine 2.06, baseline unknown Monitor renal function 6. CAD/PVD/HLD Continue aspirin and Plavix 7. UA concerning for UTI Urine cultures pending Antibiotics as above FEN NPO Electrolytes: monitor and replete prn Heparin (2) Pneumonia ICD Code: J18.9 - Pneumonia, unspecified organism Status: Acute (3) CAD (coronary artery disease) ICD Code: I25.10 - Atherosclerotic heart disease of [place] coronary artery without angina pectoris (4) Insulin dependent diabetes mellitus ICD Code: E11.9 - Type 2 diabetes mellitus without complications; Z79.4 - computer terminal operator (current) use of insulin (5) Chronic kidney disease ICD Code: N18.9 - Chronic kidney disease, unspecified Problem Qualifiers (1) CHF (congestive heart failure): Qualified Codes: I50.23 - Acute on chronic systolic (congestive) heart failure Juvencio Duenas MD, R3 Sep 11, 2017 08:21
[2017-09-11] MEDS: CLOPIDOGREL 75 MG TAB PO SCH (09:30)
[2017-09-11] MEDS: TIOTROPIUM BROMIDE 18 MCG INH INH SCH (09:30)
[2017-09-11] MEDS: LORATADINE 10 MG TAB PO SCH (09:30)
[2017-09-11] MEDS: FUROSEMIDE 40 MG/4 ML VIAL IV PUSH SCH (09:30)
[2017-09-11] MEDS: ASPIRIN 81 MG CHEW TAB CHEW SCH (09:30)
[2017-09-11] MEDS: HEPARIN SODIUM - SQ 10,000 UNITS/ML VIAL SQ SCH ×2 (09:31→20:27)
[2017-09-11] MEDS: SODIUM CHLORIDE 0.9% FLUSH 10 ML FLUSH IV FLUSH SCH ×2 (09:31→20:28)
--- NOTE | 2017-09-11 10:10 | PD.CARD.PN ---
Subjective Subjective Remarks Doing much better, no dyspnea off O2, but hasn't been flat yet. Objective Medications Current Medications Medications (Trade) Dose Ordered Sig/Briana Route Start Time Stop Time Status Last Admin (NS Flush) 2 ml UNSCH PRN IV FLUSH 09/09/17 22:00 (NS Flush) 2 ml BID IV FLUSH 09/10/17 09:00 09/11/17 09:31 (Tylenol) 650 mg Q4H PRN PO 09/09/17 22:00 (Zofran Inj) 4 mg Q6H PRN IVP 09/09/17 22:00 (Narcan Inj) 0.4 mg UNSCH PRN IV PUSH 09/09/17 22:00 (Milk Of Magnesia Liq) 30 ml Q12H PRN PO 09/09/17 22:00 (Senokot) 17.2 mg Q12H PRN PO 09/09/17 22:00 (Dulcolax Supp) 10 mg DAILY PRN RECTAL 09/09/17 22:00 (Lactulose Liq) 30 ml DAILY PRN PO 09/09/17 22:00 (Lasix Inj) 40 mg BID@,18 IV PUSH 09/10/17 09:00 09/11/17 09:30 Ceftriaxone Sodium 1000 mg/ Sodium Chloride 100 ml @ 200 mls/hr Q24H IV 09/10/17 21:00 09/10/17 20:46 Azithromycin 250 mg/Sodium Chloride 250 ml @ 250 mls/hr Q24H IV 09/10/17 22:00 09/10/17 21:50 (D50w (Vial) Inj) 50 ml UNSCH PRN IV PUSH 09/09/17 22:15 (Glucagon Inj) 1 mg UNSCH PRN OTHER 09/09/17 22:15 (NovoLOG SUPPLEMENTAL SCALE) 1 ACHS SLIDING SCALE SQ 09/10/17 08:00 09/10/17 18:06 (Duoneb Neb) 1 ampule Q4HR NEB PRN NEB 09/10/17 02:00 (Heparin Inj) 5,000 units Q12HR SQ 09/10/17 09:00 09/11/17 09:31 (Aspirin Chew) 81 mg DAILY CHEW 09/11/17 09:00 09/11/17 09:30 (Plavix) 75 mg DAILY PO 09/11/17 09:00 09/11/17 09:30 (Spiriva Inh) 18 mcg DAILY INH 09/11/17 09:00 09/11/17 09:30 (Duoneb Neb) 1 ampule Q8HR WHILE AWAKE NEB NEB 09/11/17 08:00 09/11/17 08:18 (Claritin) 5 mg DAILY PO 09/11/17 09:00 09/11/17 09:30 (Cozaar) 50 mg HS PO 09/10/17 21:00 09/10/17 20:47 (Microzide) 12.5 mg HS PO 09/10/17 21:00 09/10/17 20:47 (Pill Splitter) 1 ea UNSCH PRN OTHER 09/10/17 18:00 Vital Signs / I&O Vital Signs Date Time Temp Pulse Resp B/P (MAP) Pulse Ox O2 Delivery O2 Flow Rate FiO2 09/11/17 09:00 94 09/11/17 08:22 98 21 09/11/17 08:00 90 09/11/17 07:15 96.6 93 18 157/75 (102) 94 09/11/17 07:00 88 09/11/17 06:08 83 09/11/17 05:02 85 09/11/17 04:02 92 09/11/17 03:25 97.2 87 17 155/74 (101) 97 09/11/17 03:06 92 09/11/17 02:18 90 09/11/17 01:18 82 09/11/17 00:02 88 09/10/17 23:59 96.3 91 18 142/69 (93) 98 09/10/17 23:59 88 09/10/17 22:00 94 09/10/17 21:00 90 09/10/17 20:15 90 09/10/17 19:45 97 09/10/17 19:30 96.9 90 17 128/54 (78) 94 09/10/17 19:16 88 09/10/17 15:30 97.9 90 16 150/70 (96) 96 09/10/17 12:00 98.0 89 16 152/68 (96) 95 I/O 09/10/17 09/10/17 09/10/17 09/11/17 09/11/17 09/11/17 07:00 15:00 23:00 07:00 15:00 23:00 Intake Total 250 ml 600 ml 360 ml Output Total 200 ml 600 ml 600 ml Balance 50 ml 0 ml -240 ml Intake Oral 0 ml 600 ml 360 ml IV Total 250 ml Output Urine Total 200 ml 600 ml 600 ml Emesis 0 ml # Voids 2 1 # Bowel Movements 0 0 1 Physical Exam GENERAL: This is a well-nourished, well-developed patient, in no apparent distress. CARDIOVASCULAR: Regular rate and rhythm without murmurs, gallops, or rubs. RESPIRATORY: Diminished breath sounds all ott GASTROINTESTINAL: Abdomen soft, non-tender, nondistended. Normal active bowel sounds MUSCULOSKELETAL: Extremities without clubbing, cyanosis, or edema. NEURO: Alert & Oriented x4 to person, place, time, situation. Moves all ext x4 Laboratory Laboratory Tests Test 09/11/17 03:35 White Blood Count 4.3 TH/MM3 Red Blood Count 3.70 MIL/MM3 Hemoglobin 10.3 GM/DL Hematocrit 32.6 % Mean Corpuscular Volume 88.1 FL Mean Corpuscular Hemoglobin 27.9 PG Mean Corpuscular Hemoglobin Concent 31.7 % Red Cell Distribution Width 18.3 % Platelet Count 306 TH/MM3 Mean Platelet Volume 9.0 FL Neutrophils (%) (Auto) 47.7 % Lymphocytes (%) (Auto) 35.2 % Monocytes (%) (Auto) 14.4 % Eosinophils (%) (Auto) 1.4 % Basophils (%) (Auto) 1.3 % Neutrophils # (Auto) 2.1 TH/MM3 Lymphocytes # (Auto) 1.5 TH/MM3 Monocytes # (Auto) 0.6 TH/MM3 Eosinophils # (Auto) 0.1 TH/MM3 Basophils # (Auto) 0.1 TH/MM3 CBC Comment DIFF FINAL Differential Comment Blood Urea Nitrogen 35 MG/DL Creatinine 2.06 MG/DL Random Glucose 97 MG/DL Total Protein 7.2 GM/DL Albumin 2.6 GM/DL Calcium Level 8.7 MG/DL Alkaline Phosphatase 127 U/L Aspartate Amino Transf (AST/SGOT) 19 U/L Alanine Aminotransferase (ALT/SGPT) 16 U/L Total Bilirubin 0.5 MG/DL Sodium Level 139 MEQ/L Potassium Level 4.3 MEQ/L Chloride Level 108 MEQ/L Carbon Dioxide Level 21.5 MEQ/L Anion Gap 10 MEQ/L Estimat Glomerular Filtration Rate 24 ML/MIN Imaging Last Impressions Chest X-Ray 09/09/171918 Signed Impressions: Service Date/Time: September 19:42 - CONCLUSION: Small bilateral pleural effusions. Bibasilar atelectasis and/or infiltrates. Mild cardiomegaly. Everett Matute MD Assessment and Plan Problem List: (1) CHF (congestive heart failure) ICD Codes: I50.9 - Heart failure, unspecified Status: Acute Plan: Seems compensated and since Cr. bumped will change her to oral bumex for tomorrow. Echo pending. (2) Chronic kidney disease ICD Codes: N18.9 - Chronic kidney disease, unspecified (3) CAD (coronary artery disease) ICD Codes: I25.10 - Atherosclerotic heart disease of [place] coronary artery without angina pectoris Assessment and Plan Perhaps can d/c tomorrow if doing well. Problem Qualifiers (1) CHF (congestive heart failure): Qualified Codes: I50.23 - Acute on chronic systolic (congestive) heart failure Juvencio Harrison MD Sep 11, 2017 10:10
[2017-09-11] MEDS: HYDROCHLOROTHIAZIDE 12.5 MG CAP PO SCH (20:27)
[2017-09-11] MEDS: cefTRIAXone INJ 1,000 MG in SODIUM CHLORIDE 0.9% INJ 100 ML IV SCH (20:27)
[2017-09-11] MEDS: LOSARTAN 50 MG TAB PO SCH (20:28)
[2017-09-11] MEDS: AZITHROMYCIN INJ 250 MG in SODIUM CHLOR 0.9% 250 ML INJ 250 ML IV SCH (22:46)
[2017-09-12] VITALS (27 sets, daily range): BP systolic 101–138; BP diastolic 58–79; PULSE 84–102; RESP 16–17; TEMP 96–97.7; O2SAT 95–97
[2017-09-12] MEDS: RESP: ALBUTEROL 2.5 MG/IPRATROPIUM 0.5 MG NEB (PRN) NEB ×2 (00:08→22:44)
[2017-09-12 05:24] LABS: HEMOGLOBIN 9.7 GM/DL (11.6-15.3); MEAN CELL VOLUME 87.1 FL (80.0-100.0); MEAN CORPUSCULAR HEMOGLOBIN 28.2 PG (27.0-34.0); MEAN CORPUSCULAR HGB CONC 32.3 % (32.0-36.0); MEAN PLATELET VOLUME 8.7 FL (7.0-11.0); PLATELET COUNT 290 TH/MM3 (150-450); RED BLOOD COUNT 3.44 MIL/MM3 (4.00-5.30); RED CELL DISTRIBUTION WIDTH 18.1 % (11.6-17.2); WHITE BLOOD COUNT 4.3 TH/MM3 (4.0-11.0)
[2017-09-12 05:39] LABS: ALBUMIN 2.6 GM/DL (3.4-5.0); AST (GOT) 14 U/L (15-37); BICARBONATE 23.5 MEQ/L (21.0-32.0); BLOOD UREA NITROGEN 35 MG/DL (7-18); CALCIUM 9.1 MG/DL (8.5-10.1); CHLORIDE 106 MEQ/L (98-107); CREATININE 2.36 MG/DL (0.50-1.00); GLOMERULAR FILTRATION RATE 20 ML/MIN (>89); GLUCOSE,RANDOM 155 MG/DL (74-106); SODIUM (NA) 139 MEQ/L (136-145)
[2017-09-12 05:40] LABS: ALT (GPT) 11 U/L (10-53)
[2017-09-12 05:43] LABS: ALKALINE PHOSPHATASE 116 U/L (45-117); TOTAL BILIRUBIN ADULT 0.4 MG/DL (0.2-1.0); TOTAL PROTEIN 6.7 GM/DL (6.4-8.2)
[2017-09-12] MEDS: INSULIN ASPART SUPPLEMENTAL SCALE SQ SCH ×4 (08:00→21:00)
[2017-09-12] MEDS: TIOTROPIUM BROMIDE 18 MCG INH INH SCH (08:43)
[2017-09-12] MEDS: HEPARIN SODIUM - SQ 10,000 UNITS/ML VIAL SQ SCH ×2 (08:44→20:57)
[2017-09-12] MEDS: ASPIRIN 81 MG CHEW TAB CHEW SCH (08:44)
[2017-09-12] MEDS: LORATADINE 10 MG TAB PO SCH (08:44)
[2017-09-12] MEDS: CLOPIDOGREL 75 MG TAB PO SCH (08:44)
[2017-09-12] MEDS: SODIUM CHLORIDE 0.9% FLUSH 10 ML FLUSH IV FLUSH SCH ×2 (08:50→20:58)
[2017-09-12] MEDS ORDERED: BUMETANIDE 1 MG TAB PO SCH (09:00)
[2017-09-12] MEDS: RESP: ALBUTEROL 2.5 MG/IPRATROPIUM 0.5 MG NEB (SCH) NEB ×2 (09:12→15:49)
--- NOTE | 2017-09-12 09:53 | PD.CARD.PN ---
Subjective Subjective Remarks Doing much better, no dyspnea off O2, but hasn't been flat yet, though better than yesterday Objective Medications Current Medications Medications (Trade) Dose Ordered Sig/Briana Route Start Time Stop Time Status Last Admin (NS Flush) 2 ml UNSCH PRN IV FLUSH 09/09/17 22:00 (NS Flush) 2 ml BID IV FLUSH 09/10/17 09:00 09/12/17 08:50 (Tylenol) 650 mg Q4H PRN PO 09/09/17 22:00 (Zofran Inj) 4 mg Q6H PRN IVP 09/09/17 22:00 (Narcan Inj) 0.4 mg UNSCH PRN IV PUSH 09/09/17 22:00 (Milk Of Magnesia Liq) 30 ml Q12H PRN PO 09/09/17 22:00 (Senokot) 17.2 mg Q12H PRN PO 09/09/17 22:00 (Dulcolax Supp) 10 mg DAILY PRN RECTAL 09/09/17 22:00 (Lactulose Liq) 30 ml DAILY PRN PO 09/09/17 22:00 Ceftriaxone Sodium 1000 mg/ Sodium Chloride 100 ml @ 200 mls/hr Q24H IV 09/10/17 21:00 09/11/17 20:27 Azithromycin 250 mg/Sodium Chloride 250 ml @ 250 mls/hr Q24H IV 09/10/17 22:00 09/11/17 22:46 (D50w (Vial) Inj) 50 ml UNSCH PRN IV PUSH 09/09/17 22:15 (Glucagon Inj) 1 mg UNSCH PRN OTHER 09/09/17 22:15 (NovoLOG SUPPLEMENTAL SCALE) 1 ACHS SLIDING SCALE SQ 09/10/17 08:00 09/11/17 20:43 (Duoneb Neb) 1 ampule Q4HR NEB PRN NEB 09/10/17 02:00 09/12/17 00:08 (Heparin Inj) 5,000 units Q12HR SQ 09/10/17 09:00 09/12/17 08:44 (Aspirin Chew) 81 mg DAILY CHEW 09/11/17 09:00 09/12/17 08:44 (Plavix) 75 mg DAILY PO 09/11/17 09:00 09/12/17 08:44 (Spiriva Inh) 18 mcg DAILY INH 09/11/17 09:00 09/12/17 08:43 (Duoneb Neb) 1 ampule Q8HR WHILE AWAKE NEB NEB 09/11/17 08:00 09/12/17 09:12 (Claritin) 5 mg DAILY PO 09/11/17 09:00 09/12/17 08:44 (Cozaar) 50 mg HS PO 09/10/17 21:00 09/11/17 20:28 (Microzide) 12.5 mg HS PO 09/10/17 21:00 09/11/17 20:27 (Pill Splitter) 1 ea UNSCH PRN OTHER 09/10/17 18:00 (Bumetanide) 2 mg DAILY PO 09/12/17 09:00 09/12/17 08:44 Vital Signs / I&O Vital Signs Date Time Temp Pulse Resp B/P (MAP) Pulse Ox O2 Delivery O2 Flow Rate FiO2 09/12/17 09:14 21 09/12/17 09:00 90 09/12/17 08:00 93 09/12/17 07:15 96.7 88 16 131/61 (84) 96 09/12/17 07:00 90 09/12/17 06:01 85 09/12/17 05:00 88 09/12/17 04:00 89 09/12/17 03:19 96.0 93 17 135/63 (87) 96 09/12/17 03:00 91 09/12/17 02:06 90 09/12/17 01:00 100 09/11/17 23:07 93 09/11/17 23:05 97.6 90 17 124/61 (82) 95 09/11/17 19:50 21 09/11/17 19:00 94 09/11/17 19:00 98.2 91 17 121/60 (80) 96 09/11/17 18:00 94 09/11/17 17:00 95 09/11/17 16:00 93 09/11/17 15:00 89 09/11/17 15:00 97.6 89 18 132/66 (88) 95 09/11/17 14:00 86 09/11/17 13:00 88 09/11/17 12:00 88 09/11/17 11:00 95 09/11/17 11:00 97.6 89 17 142/67 (92) 95 09/11/17 10:00 93 I/O 09/11/17 09/11/17 09/11/17 09/12/17 09/12/17 09/12/17 07:00 15:00 23:00 07:00 15:00 23:00 Intake Total 360 ml 720 ml 970 ml Output Total 600 ml 900 ml 600 ml Balance -240 ml -180 ml 370 ml Intake Oral 360 ml 720 ml 620 ml IV Total 350 ml Output Urine Total 600 ml 900 ml 600 ml # Voids 1 # Bowel Movements 1 0 Physical Exam GENERAL: This is a well-nourished, well-developed patient, in no apparent distress. CARDIOVASCULAR: Regular rate and rhythm without murmurs, gallops, or rubs. RESPIRATORY: Diminished breath sounds all ott GASTROINTESTINAL: Abdomen soft, non-tender, nondistended. Normal active bowel sounds MUSCULOSKELETAL: Extremities without clubbing, cyanosis, or edema. NEURO: Alert & Oriented x4 to person, place, time, situation. Moves all ext x4 Laboratory Laboratory Tests Test 09/12/17 04:26 White Blood Count 4.3 TH/MM3 Red Blood Count 3.44 MIL/MM3 Hemoglobin 9.7 GM/DL Hematocrit 30.0 % Mean Corpuscular Volume 87.1 FL Mean Corpuscular Hemoglobin 28.2 PG Mean Corpuscular Hemoglobin Concent 32.3 % Red Cell Distribution Width 18.1 % Platelet Count 290 TH/MM3 Mean Platelet Volume 8.7 FL Blood Urea Nitrogen 35 MG/DL Creatinine 2.36 MG/DL Random Glucose 155 MG/DL Total Protein 6.7 GM/DL Albumin 2.6 GM/DL Calcium Level 9.1 MG/DL Alkaline Phosphatase 116 U/L Aspartate Amino Transf (AST/SGOT) 14 U/L Alanine Aminotransferase (ALT/SGPT) 11 U/L Total Bilirubin 0.4 MG/DL Sodium Level 139 MEQ/L Potassium Level 4.0 MEQ/L Chloride Level 106 MEQ/L Carbon Dioxide Level 23.5 MEQ/L Anion Gap 10 MEQ/L Estimat Glomerular Filtration Rate 20 ML/MIN Imaging Last Impressions Chest X-Ray 09/09/17 5096 Signed Impressions: Service Date/Time: September 19:42 - CONCLUSION: Small bilateral pleural effusions. Bibasilar atelectasis and/or infiltrates. Mild cardiomegaly. Everett Matute MD Assessment and Plan Problem List: (1) CHF (congestive heart failure) ICD Codes: I50.9 - Heart failure, unspecified Status: Acute (2) Chronic kidney disease ICD Codes: N18.9 - Chronic kidney disease, unspecified Plan: Cr. rising, most liekly cath would be too high risk given lack of convincing angina (3) CAD (coronary artery disease) ICD Codes: I25.10 - Atherosclerotic heart disease of [place] coronary artery without angina pectoris Assessment and Plan Given she still cannot lie flat and cr increasing, would opt to keep her today on PO bumex to see which direction she is going, if cr rises again, will likely need renal assistance Problem Qualifiers (1) CHF (congestive heart failure): Qualified Codes: I50.23 - Acute on chronic systolic (congestive) heart failure Juvencio Harrison MD Sep 12, 2017 09:53
--- NOTE | 2017-09-12 10:12 | HHI.PR ---
Subjective Remarks Still with sob, LE edema, however breathing better not on O2 at this time. No n/v/d/c. Decreased appetite. Objective Vitals Vital Signs Date Time Temp Pulse Resp B/P (MAP) Pulse Ox O2 Delivery O2 Flow Rate FiO2 09/12/17 09:14 21 09/12/17 09:00 90 09/12/17 08:00 93 09/12/17 07:15 96.7 88 16 131/61 (84) 96 09/12/17 07:00 90 09/12/17 06:01 85 09/12/17 05:00 88 09/12/17 04:00 89 09/12/17 03:19 96.0 93 17 135/63 (87) 96 09/12/17 03:00 91 09/12/17 02:06 90 09/12/17 01:00 100 09/11/17 23:07 93 09/11/17 23:05 97.6 90 17 124/61 (82) 95 09/11/17 19:50 21 09/11/17 19:00 94 09/11/17 19:00 98.2 91 17 121/60 (80) 96 09/11/17 18:00 94 09/11/17 17:00 95 09/11/17 16:00 93 09/11/17 15:00 89 09/11/17 15:00 97.6 89 18 132/66 (88) 95 09/11/17 14:00 86 09/11/17 13:00 88 09/11/17 12:00 88 09/11/17 11:00 95 09/11/17 11:00 97.6 89 17 142/67 (92) 95 I/O 09/11/17 09/11/17 09/11/17 09/12/17 09/12/17 09/12/17 07:00 15:00 23:00 07:00 15:00 23:00 Intake Total 360 ml 720 ml 970 ml Output Total 600 ml 900 ml 600 ml Balance -240 ml -180 ml 370 ml Intake Oral 360 ml 720 ml 620 ml IV Total 350 ml Output Urine Total 600 ml 900 ml 600 ml # Voids 1 # Bowel Movements 1 0 Result Diagram: 09/12/1742509/12/17425 Imaging Last Impressions Chest X-Ray 09/09/171918 Signed Impressions: Service Date/Time: September 19:42 - CONCLUSION: Small bilateral pleural effusions. Bibasilar atelectasis and/or infiltrates. Mild cardiomegaly. Everett Matute MD Objective Remarks GENERAL: female sitting up in bed in mild distress CARDIOVASCULAR: Regular rate and rhythm without murmurs, gallops, or rubs. RESPIRATORY: Bilateral crackles. GASTROINTESTINAL: Abdomen soft, non-tender, nondistended. No hepato-splenomegaly , or palpable masses. No guarding. MUSCULOSKELETAL: 2+ pitting edema to the mid shins. No calf tenderness. NEUROLOGICAL: Awake and alert. Cranial nerves II through XII intact. Motor and sensory grossly within normal limits. Normal speech. A/P Problem List: (1) CHF (congestive heart failure) ICD Code: I50.9 - Heart failure, unspecified Status: Acute (2) Pneumonia ICD Code: J18.9 - Pneumonia, unspecified organism Status: Acute (3) CAD (coronary artery disease) ICD Code: I25.10 - Atherosclerotic heart disease of [place] coronary artery without angina pectoris (4) Insulin dependent diabetes mellitus ICD Code: E11.9 - Type 2 diabetes mellitus without complications; Z79.4 - nursing home (current) use of insulin (5) Chronic kidney disease ICD Code: N18.9 - Chronic kidney disease, unspecified Assessment and Plan This is a 71-year-old female with history of chronic congestive heart failure, chronic kidney disease, insulin-dependent diabetes, and CAD. She is being admitted for acute on chronic congestive heart failure exacerbation CHF with exacerbation Chest x-ray significant for small bilateral pleural effusions, personally reviewed Cardiology consulted, recommendations appreciated BNP 2658 on admission Change IV Lasix to IB bumex as her kidney function is worsening. Monitor closely kidney function. Monitor UOP. Monitor I's and O's Supplemental oxygen when necessary 2-D echo pending Upon discharge anticipate transition to Bumex or Torsemide Pneumonia Bibasilar atelectasis versus infiltrate Rocephin/azithromycin DuoNeb's Check sputum cultures Chest pain/CAD Resolved this time Initial troponin negative ACS rule out pending; troponins trended negative Cardiology consulted, appreciate recommendations - patient's c consultant is Dr. Muniz Insulin-dependent diabetes mellitus Sliding scale insulin as patient nothing by mouth Monitor blood glucose Chronic kidney disease Creatinine 2.06, baseline unknown Monitor renal function CAD/PVD/HLD Continue aspirin and Plavix UA concerning for UTI Urine cultures pending Antibiotics as above DVT ppx Heparin DC plan poss DC in 1-2 days if continues to improve, monitor kidney fucntion while n diuretics Problem Qualifiers (1) CHF (congestive heart failure): Qualified Codes: I50.23 - Acute on chronic systolic (congestive) heart failure Sailaja Hoffmann MD Sep 12, 2017 10:12
[2017-09-12] MEDS: cefTRIAXone INJ 1,000 MG in SODIUM CHLORIDE 0.9% INJ 100 ML IV SCH (20:57)
[2017-09-12] MEDS: HYDROCHLOROTHIAZIDE 12.5 MG CAP PO SCH (20:58)
[2017-09-12] MEDS: LOSARTAN 50 MG TAB PO SCH (20:58)
[2017-09-12] MEDS: AZITHROMYCIN INJ 250 MG in SODIUM CHLOR 0.9% 250 ML INJ 250 ML IV SCH (21:43)
[2017-09-13] VITALS (23 sets, daily range): BP systolic 122–151; BP diastolic 58–71; PULSE 83–97; RESP 17–20; TEMP 97.8–98.2; O2SAT 92–98
[2017-09-13] MEDS: RESP: ALBUTEROL 2.5 MG/IPRATROPIUM 0.5 MG NEB (SCH) NEB ×2 (05:49→15:20)
[2017-09-13 06:25] LABS: AUTOMATED NEUTROPHIL # 1.9 TH/MM3 (1.8-7.7); BASOPHIL % 1.2 % (0.0-2.0); EOSINOPHIL # 0.1 TH/MM3 (0-0.4); EOSINOPHIL % 2.2 % (0.0-4.0); HEMATOCRIT 30.5 % (35.0-46.0); HEMOGLOBIN 9.9 GM/DL (11.6-15.3); LYMPH % 30.2 % (9.0-44.0); LYMPHOCYTE # 1.1 TH/MM3 (1.0-4.8); MEAN CELL VOLUME 86.8 FL (80.0-100.0); MEAN CORPUSCULAR HEMOGLOBIN 28.3 PG (27.0-34.0); MEAN CORPUSCULAR HGB CONC 32.6 % (32.0-36.0); MEAN PLATELET VOLUME 8.6 FL (7.0-11.0); MONO % 16.2 % (0.0-8.0); MONOCYTE # 0.6 TH/MM3 (0-0.9); NEUT % 50.2 % (16.0-70.0); PLATELET COUNT 277 TH/MM3 (150-450); RED BLOOD COUNT 3.52 MIL/MM3 (4.00-5.30); RED CELL DISTRIBUTION WIDTH 18.3 % (11.6-17.2); WHITE BLOOD COUNT 3.8 TH/MM3 (4.0-11.0)
[2017-09-13 06:52] LABS: BICARBONATE 24.8 MEQ/L (21.0-32.0); CALCIUM 9.2 MG/DL (8.5-10.1); CREATININE 2.53 MG/DL (0.50-1.00)
--- NOTE | 2017-09-13 07:32 | HHI.PR ---
Subjective Remarks The patient still with shortness of breath, wheezing at times. Nonproductive cough. She feels very tired. Not eating much has decreased appetite. No fever or chills overnight. Objective Vitals Vital Signs Date Time Temp Pulse Resp B/P (MAP) Pulse Ox O2 Delivery O2 Flow Rate FiO2 09/13/17 06:00 88 09/13/17 05:00 86 09/13/17 04:00 89 09/13/17 03:02 98.2 86 17 128/60 (82) 97 09/13/17 03:00 89 09/13/17 02:00 92 09/13/17 01:03 93 09/13/17 00:00 95 09/12/17 23:16 97.6 84 17 101/75 (84) 95 09/12/17 23:00 96 09/12/17 22:00 94 09/12/17 21:00 95 09/12/17 20:00 92 09/12/17 19:58 21 09/12/17 19:44 97.7 97 17 135/70 (91) 97 09/12/17 19:00 95 09/12/17 18:00 96 09/12/17 17:00 98 09/12/17 16:00 94 09/12/17 15:00 96.8 89 16 127/58 (81) 97 09/12/17 15:00 90 09/12/17 14:00 92 09/12/17 13:00 90 09/12/17 12:00 93 09/12/17 11:00 96.8 96 17 138/79 (98) 95 09/12/17 11:00 93 09/12/17 10:00 102 09/12/17 09:14 21 09/12/17 09:00 90 09/12/17 08:00 93 I/O 09/12/17 09/12/17 09/12/17 09/13/17 09/13/17 09/13/17 06:59 14:59 22:59 06:59 14:59 22:59 Intake Total 970 ml 480 ml 830 ml Output Total 600 ml 350 ml 375 ml Balance 370 ml 130 ml 455 ml Intake Oral 620 ml 480 ml 480 ml IV Total 350 ml 350 ml Output Urine Total 600 ml 350 ml 375 ml # Bowel Movements 0 0 Result Diagram: 09/13/17 0545 09/13/17 0545 Imaging Last Impressions Chest X-Ray 09/09/171918 Signed Impressions: Service Date/Time: September 19:42 - CONCLUSION: Small bilateral pleural effusions. Bibasilar atelectasis and/or infiltrates. Mild cardiomegaly. Everett Matute MD Objective Remarks GENERAL: female sitting up in bed in mild distress CARDIOVASCULAR: Regular rate and rhythm without murmurs, gallops, or rubs. RESPIRATORY: Bilateral crackles. No wheezing. GASTROINTESTINAL: Abdomen soft, non-tender, nondistended. No hepato-splenomegaly , or palpable masses. No guarding. MUSCULOSKELETAL: 2+ pitting edema to the mid shins. No calf tenderness. NEUROLOGICAL: Awake and alert. Cranial nerves II through XII intact. Motor and sensory grossly within normal limits. Normal speech. A/P Problem List: (1) CHF (congestive heart failure) ICD Code: I50.9 - Heart failure, unspecified Status: Acute (2) Pneumonia ICD Code: J18.9 - Pneumonia, unspecified organism Status: Acute (3) CAD (coronary artery disease) ICD Code: I25.10 - Atherosclerotic heart disease of [place] coronary artery without angina pectoris (4) Insulin dependent diabetes mellitus ICD Code: E11.9 - Type 2 diabetes mellitus without complications; Z79.4 - snf (current) use of insulin (5) Chronic kidney disease ICD Code: N18.9 - Chronic kidney disease, unspecified Assessment and Plan This is a 71-year-old female with history of chronic congestive heart failure, chronic kidney disease, insulin-dependent diabetes, and CAD. She is being admitted for acute on chronic congestive heart failure exacerbation CHF with exacerbation Chest x-ray significant for small bilateral pleural effusions, personally reviewed Cardiology consulted, recommendations appreciated BNP 2658 on admission Change IV Lasix to IB bumex as her kidney function is worsening. Monitor closely kidney function. Monitor UOP. Monitor I's and O's Supplemental oxygen when necessary 2-D reviewed with low EF 20% will check offoce previous records per Dr Law cardio Upon discharge anticipate transition to Bumex or Torsemide Pneumonia Bibasilar atelectasis versus infiltrate Rocephin/azithromycin DuoNeb's Check sputum cultures Chest pain/CAD Resolved this time Initial troponin negative ACS rule out pending; troponins trended negative Cardiology consulted, appreciate recommendations - patient's warrant server is Dr. Muniz Insulin-dependent diabetes mellitus Sliding scale insulin as patient nothing by mouth Monitor blood glucose Chronic kidney disease Creatinine 2.06, baseline unknown Monitor renal function CAD/PVD/HLD Continue aspirin and Plavix UA concerning for UTI Urine cultures pending Antibiotics as above DVT ppx Heparin DC plan poss DC in 1-2 days if continues to improve, monitor kidney function while on diuretics. ECHO with low EF 20% cardio ff. DC when cleared by cardio. Problem Qualifiers (1) CHF (congestive heart failure): Qualified Codes: I50.23 - Acute on chronic systolic (congestive) heart failure Sailaja Hoffmann MD Sep 13, 2017 07:32
[2017-09-13] MEDS: INSULIN ASPART SUPPLEMENTAL SCALE SQ SCH ×4 (07:56→21:00)
[2017-09-13] MEDS: LORATADINE 10 MG TAB PO SCH (08:30)
[2017-09-13] MEDS: CLOPIDOGREL 75 MG TAB PO SCH (08:30)
[2017-09-13] MEDS: SODIUM CHLORIDE 0.9% FLUSH 10 ML FLUSH IV FLUSH SCH ×2 (08:31→20:25)
[2017-09-13] MEDS: HEPARIN SODIUM - SQ 10,000 UNITS/ML VIAL SQ SCH ×2 (08:31→20:25)
[2017-09-13] MEDS: TIOTROPIUM BROMIDE 18 MCG INH INH SCH (08:31)
[2017-09-13] MEDS: BUMETANIDE 1 MG TAB PO SCH (08:31)
[2017-09-13] MEDS: ASPIRIN 81 MG CHEW TAB CHEW SCH (08:31)
--- NOTE | 2017-09-13 13:17 | ECHRPT ---
Indication: CHF CONCLUSIONS The left ventricular systolic function is severely reduced with an estimated ejection fraction in th e range of 25-30%. Normal left ventricular size. Wall thickness is normal. There is global left ventricular dysfunction. The left atrial size is upper limits of normal. Moderate mitral valve regurgitation. Mild aortic valve regurgitation. There is moderate to severe tricuspid valve regurgitation. The estimated pulmonary arterial pressure is 66.9 mmHg. Mild pulmonary valve regurgitation. t. A moderate left sided pleural effusion is noted. BP: 152 / 68 HR: 89 Rhythm: Sinus MEASUREMENTS (Male / Female) Normal Values Technical Quality:Good 2D ECHO LV Diastolic Diameter PLAX 4.7 cm 4.2 - 5.9 / 3.9 - 5.3 cm LV Systolic Diameter PLAX 4.2 cm IVS Diastolic Thickness 1.0 cm 0.6 - 1.0 / 0.6 - 0.9 cm LVPW Diastolic Thickness 1.0 cm 0.6 - 1.0 / 0.6 - 0.9 cm LV Relative Wall Thickness 0.4 RV Internal Dim ED PLAX 3.8 cm LVOT Diameter 1.8 cm LA Systolic Diameter LX 4.1 cm 3.0 - 4.0 / 2.7 - 3.8 cm LV Ejection Fraction MOD 4C 27.6 % LV Cardiac Index MOD 4C 1054.3 cm/minm LV Ejection Fraction 4C AL 29.5 % LV Cardiac Index 4C AL 1155.3 cm/minm M-MODE Aortic Root Diameter MM 2.7 cm LA Systolic Diameter MM 3.8 cm LA Ao Ratio MM 1.4 AV Cusp Separation MM 1.6 cm DOPPLER AV Peak Velocity 110.0 cm/s AV Peak Gradient 4.8 mmHg AI Peak Velocity 345.0 cm/s AI Peak Gradient 47.6 mmHg AI Pressure Half Time 533.0 ms MV Area PHT 2.0 cm TR Peak Velocity 377.0 cm/s TR Peak Gradient 56.9 mmHg Right Atrial Pressure 10.0 mmHg Pulmonary Artery Systolic Pressu 66.9 mmHg Right Ventricular Systolic Press 66.9 mmHg PV Peak Velocity 86.9 cm/s PV Peak Gradient 3.0 mmHg FINDINGS LEFT VENTRICLE The left ventricular systolic function is severely reduced with an estimated ejection fraction in th e range of 25-30%. Normal left ventricular size. Wall thickness is normal. There is global left ventricular dysfunction. RIGHT VENTRICLE Normal right ventricular size and systolic function. LEFT ATRIUM The left atrial size is upper limits of normal. RIGHT ATRIUM The right atrial size is normal. ATRIAL SEPTUM Normal atrial septal thickness without atrial level shunting by limited color doppler interrogation. AORTA The aortic root and proximal ascending aorta are normal in size on limited imaging. MITRAL VALVE Structurally normal mitral valve. Moderate mitral valve regurgitation. AORTIC VALVE Trileaflet aortic valve. Mild aortic valve regurgitation. TRICUSPID VALVE Structurally normal tricuspid valve. There is moderate to severe tricuspid valve regurgitation. The estimated pulmonary arterial pressure is 66.9 mmHg. PULMONARY VALVE Mild pulmonary valve regurgitation. VESSELS The inferior vena cava is normal in size. PERICARDIUM A moderate left sided pleural effusion is noted. Zeke Garcia MD, FACC (Electronically Signed) Final Date:13 September 2017 13:17
--- NOTE | 2017-09-13 19:25 | PD.CARD.PN ---
Subjective Subjective Remarks Patient was seen earlier today, late entry SOB somewhat better No chest pain Objective Medications Current Medications Medications (Trade) Dose Ordered Sig/Briana Route Start Time Stop Time Status Last Admin (NS Flush) 2 ml UNSCH PRN IV FLUSH 09/09/17 22:00 (NS Flush) 2 ml BID IV FLUSH 09/10/17 09:00 09/13/17 08:31 (Tylenol) 650 mg Q4H PRN PO 09/09/17 22:00 (Zofran Inj) 4 mg Q6H PRN IVP 09/09/17 22:00 (Narcan Inj) 0.4 mg UNSCH PRN IV PUSH 09/09/17 22:00 (Milk Of Magnesia Liq) 30 ml Q12H PRN PO 09/09/17 22:00 (Senokot) 17.2 mg Q12H PRN PO 09/09/17 22:00 (Dulcolax Supp) 10 mg DAILY PRN RECTAL 09/09/17 22:00 (Lactulose Liq) 30 ml DAILY PRN PO 09/09/17 22:00 Ceftriaxone Sodium 1000 mg/ Sodium Chloride 100 ml @ 200 mls/hr Q24H IV 09/10/17 21:00 09/12/17 20:57 Azithromycin 250 mg/Sodium Chloride 250 ml @ 250 mls/hr Q24H IV 09/10/17 22:00 09/12/17 21:43 (D50w (Vial) Inj) 50 ml UNSCH PRN IV PUSH 09/09/17 22:15 (Glucagon Inj) 1 mg UNSCH PRN OTHER 09/09/17 22:15 (NovoLOG SUPPLEMENTAL SCALE) 1 ACHS SLIDING SCALE SQ 09/10/17 08:00 09/13/17 16:44 (Duoneb Neb) 1 ampule Q4HR NEB PRN NEB 09/10/17 02:00 09/12/17 22:44 (Heparin Inj) 5,000 units Q12HR SQ 09/10/17 09:00 09/13/17 08:31 (Aspirin Chew) 81 mg DAILY CHEW 09/11/17 09:00 09/13/17 08:31 (Plavix) 75 mg DAILY PO 09/11/17 09:00 09/13/17 08:30 (Spiriva Inh) 18 mcg DAILY INH 09/11/17 09:00 09/12/17 08:43 (Duoneb Neb) 1 ampule Q8HR WHILE AWAKE NEB NEB 09/11/17 08:00 09/13/17 15:20 (Claritin) 5 mg DAILY PO 09/11/17 09:00 09/13/17 08:30 (Cozaar) 50 mg HS PO 09/10/17 21:00 09/12/17 20:58 (Microzide) 12.5 mg HS PO 09/10/17 21:00 09/12/17 20:58 (Pill Splitter) 1 ea UNSCH PRN OTHER 09/10/17 18:00 (Bumetanide) 1 mg DAILY PO 09/13/17 09:00 09/13/17 08:31 Vital Signs / I&O Vital Signs Date Time Temp Pulse Resp B/P (MAP) Pulse Ox O2 Delivery O2 Flow Rate FiO2 09/13/17 18:03 92 09/13/17 17:00 93 09/13/17 16:00 89 09/13/17 15:00 90 09/13/17 15:00 98.1 86 20 131/60 (83) 98 09/13/17 14:00 86 09/13/17 13:00 92 09/13/17 12:00 86 09/13/17 11:00 98.0 92 20 126/58 (80) 92 09/13/17 11:00 96 09/13/17 10:00 83 09/13/17 09:00 93 09/13/17 08:00 88 09/13/17 07:45 97.9 96 20 146/68 (94) 95 09/13/17 07:45 91 09/13/17 07:45 Nasal Cannula 09/13/17 06:00 88 09/13/17 05:00 86 09/13/17 04:00 89 09/13/17 03:02 98.2 86 17 128/60 (82) 97 09/13/17 03:00 89 09/13/17 02:00 92 09/13/17 01:03 93 09/13/17 00:00 95 09/12/17 23:16 97.6 84 17 101/75 (84) 95 09/12/17 23:00 96 09/12/17 22:00 94 09/12/17 21:00 95 09/12/17 20:00 92 09/12/17 19:58 21 09/12/17 19:44 97.7 97 17 135/70 (91) 97 I/O 09/12/17 09/12/17 09/12/17 09/13/17 09/13/17 09/13/17 07:00 15:00 23:00 07:00 15:00 23:00 Intake Total 970 ml 480 ml 830 ml 600 ml Output Total 600 ml 350 ml 375 ml 400 ml Balance 370 ml 130 ml 455 ml 200 ml Intake Oral 620 ml 480 ml 480 ml 600 ml IV Total 350 ml 350 ml Output Urine Total 600 ml 350 ml 375 ml 400 ml # Bowel Movements 0 0 0 Physical Exam GENERAL: NAD, AAOx3 SKIN: Warm and dry. HEAD: Atraumatic. Normocephalic. EYES: Pupils equal and round. No scleral icterus. No injection or drainage. ENT: No nasal bleeding or discharge. Mucous membranes pink and moist. NECK: Trachea midline. No JVD. CARDIOVASCULAR: Regular rate and rhythm. RESPIRATORY: No accessory muscle use. Decreased breath sounds bilaterally GASTROINTESTINAL: Abdomen soft, non-tender, nondistended. Hepatic and splenic margins not palpable. MUSCULOSKELETAL: Extremities without clubbing, cyanosis, or edema. No obvious deformities. NEUROLOGICAL: Awake and alert. No obvious cranial nerve deficits. Motor grossly within normal limits. Five out of 5 muscle strength in the arms and legs. Normal speech. PSYCHIATRIC: Appropriate mood and affect; insight and judgment normal. Laboratory Laboratory Tests Test 09/13/17 05:45 White Blood Count 3.8 TH/MM3 Red Blood Count 3.52 MIL/MM3 Hemoglobin 9.9 GM/DL Hematocrit 30.5 % Mean Corpuscular Volume 86.8 FL Mean Corpuscular Hemoglobin 28.3 PG Mean Corpuscular Hemoglobin Concent 32.6 % Red Cell Distribution Width 18.3 % Platelet Count 277 TH/MM3 Mean Platelet Volume 8.6 FL Neutrophils (%) (Auto) 50.2 % Lymphocytes (%) (Auto) 30.2 % Monocytes (%) (Auto) 16.2 % Eosinophils (%) (Auto) 2.2 % Basophils (%) (Auto) 1.2 % Neutrophils # (Auto) 1.9 TH/MM3 Lymphocytes # (Auto) 1.1 TH/MM3 Monocytes # (Auto) 0.6 TH/MM3 Eosinophils # (Auto) 0.1 TH/MM3 Basophils # (Auto) 0.0 TH/MM3 CBC Comment DIFF FINAL Differential Comment Blood Urea Nitrogen 40 MG/DL Creatinine 2.53 MG/DL Random Glucose 97 MG/DL Calcium Level 9.2 MG/DL Sodium Level 137 MEQ/L Potassium Level 3.8 MEQ/L Chloride Level 104 MEQ/L Carbon Dioxide Level 24.8 MEQ/L Anion Gap 8 MEQ/L Estimat Glomerular Filtration Rate 19 ML/MIN Assessment and Plan Problem List: (1) CHF (congestive heart failure) ICD Codes: I50.9 - Heart failure, unspecified Status: Acute (2) Chronic kidney disease ICD Codes: N18.9 - Chronic kidney disease, unspecified (3) CAD (coronary artery disease) ICD Codes: I25.10 - Atherosclerotic heart disease of [place] coronary artery without angina pectoris Assessment and Plan 1) Acute on chronic CHF Echo showing decreased EF, believe this is known from before but will check office records 2) Rising creatinine Bumex decreased HCTZ stopped Will have to watch, if further elevation then most likely need nephrology on board 3) CAD No angina, trop negative Con't ASA/Plavix Problem Qualifiers (1) CHF (congestive heart failure): Qualified Codes: I50.23 - Acute on chronic systolic (congestive) heart failure Shravan Muniz DO Sep 13, 2017 19:25
[2017-09-13] MEDS: LOSARTAN 50 MG TAB PO SCH (20:24)
[2017-09-13] MEDS: cefTRIAXone INJ 1,000 MG in SODIUM CHLORIDE 0.9% INJ 100 ML IV SCH (20:24)
[2017-09-13] MEDS: AZITHROMYCIN INJ 250 MG in SODIUM CHLOR 0.9% 250 ML INJ 250 ML IV SCH (21:12)
[2017-09-13] MEDS: RESP: ALBUTEROL 2.5 MG/IPRATROPIUM 0.5 MG NEB (PRN) NEB (23:07)
[2017-09-14] VITALS (27 sets, daily range): BP systolic 112–148; BP diastolic 58–85; PULSE 85–97; RESP 17–20; TEMP 95.5–98.4; O2SAT 93–99
[2017-09-14] MEDS: RESP: ALBUTEROL 2.5 MG/IPRATROPIUM 0.5 MG NEB (PRN) NEB ×2 (03:20→20:58)
[2017-09-14 06:01] LABS: AUTOMATED NEUTROPHIL # 2.2 TH/MM3 (1.8-7.7); BASOPHIL % 0.7 % (0.0-2.0); EOSINOPHIL # 0.1 TH/MM3 (0-0.4); EOSINOPHIL % 2.1 % (0.0-4.0); HEMATOCRIT 29.9 % (35.0-46.0); HEMOGLOBIN 9.6 GM/DL (11.6-15.3); LYMPH % 29.8 % (9.0-44.0); LYMPHOCYTE # 1.3 TH/MM3 (1.0-4.8); MEAN CELL VOLUME 87.1 FL (80.0-100.0); MEAN CORPUSCULAR HEMOGLOBIN 28.1 PG (27.0-34.0); MEAN CORPUSCULAR HGB CONC 32.3 % (32.0-36.0); MEAN PLATELET VOLUME 8.9 FL (7.0-11.0); MONO % 14.4 % (0.0-8.0); MONOCYTE # 0.6 TH/MM3 (0-0.9); PLATELET COUNT 262 TH/MM3 (150-450); RED BLOOD COUNT 3.43 MIL/MM3 (4.00-5.30); RED CELL DISTRIBUTION WIDTH 18.4 % (11.6-17.2); WHITE BLOOD COUNT 4.2 TH/MM3 (4.0-11.0)
[2017-09-14 06:16] LABS: BICARBONATE 22.6 MEQ/L (21.0-32.0); CALCIUM 8.9 MG/DL (8.5-10.1); CREATININE 2.39 MG/DL (0.50-1.00)
[2017-09-14] MEDS: RESP: ALBUTEROL 2.5 MG/IPRATROPIUM 0.5 MG NEB (SCH) NEB ×2 (07:33→11:57)
[2017-09-14] MEDS: INSULIN ASPART SUPPLEMENTAL SCALE SQ SCH ×4 (07:49→20:55)
[2017-09-14] MEDS: ASPIRIN 81 MG CHEW TAB CHEW SCH (08:24)
[2017-09-14] MEDS: LORATADINE 10 MG TAB PO SCH (08:24)
[2017-09-14] MEDS: HEPARIN SODIUM - SQ 10,000 UNITS/ML VIAL SQ SCH ×2 (08:24→20:55)
[2017-09-14] MEDS: TIOTROPIUM BROMIDE 18 MCG INH INH SCH (08:24)
[2017-09-14] MEDS: CLOPIDOGREL 75 MG TAB PO SCH (08:24)
[2017-09-14] MEDS: BUMETANIDE 1 MG TAB PO SCH (08:25)
[2017-09-14] MEDS: SODIUM CHLORIDE 0.9% FLUSH 10 ML FLUSH IV FLUSH SCH ×2 (08:25→20:56)
--- NOTE | 2017-09-14 08:40 | HHI.PR ---
Subjective Remarks With sob, however improved some. No cough. Had no chest pain however she feel her chest is tight. No diaphoresis, nausea, vomiting. Objective Vitals Vital Signs Date Time Temp Pulse Resp B/P (MAP) Pulse Ox O2 Delivery O2 Flow Rate FiO2 09/14/17 07:36 98.0 90 20 148/67 (94) 99 09/14/17 07:36 91 09/14/17 07:34 98 09/14/17 06:00 91 09/14/17 05:01 91 09/14/17 04:00 93 09/14/17 03:03 96.8 91 17 125/58 (80) 94 09/14/17 03:00 90 09/14/17 02:00 87 09/13/17 23:00 97.8 97 18 122/61 (81) 97 09/13/17 23:00 94 09/13/17 20:30 21 09/13/17 19:41 98.1 97 18 151/71 (97) 98 09/13/17 19:00 90 09/13/17 18:03 92 09/13/17 17:00 93 09/13/17 16:00 89 09/13/17 15:00 90 09/13/17 15:00 98.1 86 20 131/60 (83) 98 09/13/17 14:00 86 09/13/17 13:00 92 09/13/17 12:00 86 09/13/17 11:00 98.0 92 20 126/58 (80) 92 09/13/17 11:00 96 09/13/17 10:00 83 09/13/17 09:00 93 I/O 09/13/17 09/13/17 09/13/17 09/14/17 09/14/17 09/14/17 07:00 15:00 23:00 07:00 15:00 23:00 Intake Total 830 ml 600 ml 480 ml Output Total 375 ml 400 ml 500 ml Balance 455 ml 200 ml -20 ml Intake Oral 480 ml 600 ml 480 ml IV Total 350 ml Output Urine Total 375 ml 400 ml 500 ml # Bowel Movements 0 0 Result Diagram: 09/14/17 0423 09/14/17 0423 Imaging Last Impressions Chest X-Ray 09/09/171918 Signed Impressions: Service Date/Time: Thursday, September 09, 2017 19:42 - CONCLUSION: Small bilateral pleural effusions. Bibasilar atelectasis and/or infiltrates. Mild cardiomegaly. Eevrett Matute MD Objective Remarks GENERAL: female sitting up in bed in mild distress CARDIOVASCULAR: Regular rate and rhythm without murmurs, gallops, or rubs. RESPIRATORY: Bilateral crackles. No wheezing. GASTROINTESTINAL: Abdomen soft, non-tender, nondistended. No hepato-splenomegaly , or palpable masses. No guarding. MUSCULOSKELETAL: 2+ pitting edema to the mid shins. No calf tenderness. NEUROLOGICAL: Awake and alert. Cranial nerves II through XII intact. Motor and sensory grossly within normal limits. Normal speech. A/P Problem List: (1) CHF (congestive heart failure) ICD Code: I50.9 - Heart failure, unspecified Status: Acute (2) Pneumonia ICD Code: J18.9 - Pneumonia, unspecified organism Status: Acute (3) CAD (coronary artery disease) ICD Code: I25.10 - Atherosclerotic heart disease of [place] coronary artery without angina pectoris (4) Insulin dependent diabetes mellitus ICD Code: E11.9 - Type 2 diabetes mellitus without complications; Z79.4 - eight section blower (current) use of insulin (5) Chronic kidney disease ICD Code: N18.9 - Chronic kidney disease, unspecified Assessment and Plan This is a 71-year-old female with history of chronic congestive heart failure, chronic kidney disease, insulin-dependent diabetes, and CAD. She is being admitted for acute on chronic congestive heart failure exacerbation CHF with exacerbation Chest x-ray significant for small bilateral pleural effusions, personally reviewed Cardiology consulted, recommendations appreciated BNP 2658 on admission Change IV Lasix to IB bumex as her kidney function is worsening. Monitor closely kidney function. Monitor UOP. Monitor I's and O's Supplemental oxygen when necessary 2-D reviewed with low EF 25% patien meseretith recent previous ECHO with normal EF per Dr Law. Plan for cardiac cath tomorrow 09/15/17 Upon discharge anticipate transition to Bumex or Torsemide Pneumonia Bibasilar atelectasis versus infiltrate Rocephin/azithromycin DuoNeb's Check sputum cultures Chest pain/CAD Resolved this time Initial troponin negative ACS rule out pending; troponins trended negative Cardiology consulted, appreciate recommendations - patient's rn primary care is Dr. Muniz Insulin-dependent diabetes mellitus Sliding scale insulin as patient nothing by mouth Monitor blood glucose Chronic kidney disease Creatinine 2.06, baseline unknown Monitor renal function CAD/PVD/HLD Continue aspirin and Plavix UA concerning for UTI Urine cultures pending Antibiotics as above DVT ppx Heparin DC when improves, monitor kidney function while on diuretics. ECHO with low EF 20% cardio ff, plan for cardiac cath 09/15/17. DC when cleared by cardio. Problem Qualifiers (1) CHF (congestive heart failure): Qualified Codes: I50.23 - Acute on chronic systolic (congestive) heart failure Sailaja Hoffmann MD Sep 14, 2017 08:40
--- NOTE | 2017-09-14 08:45 | PD.CARD.PN ---
Subjective Subjective Remarks SOB better No chest pain Objective Medications Current Medications Medications (Trade) Dose Ordered Sig/Briana Route Start Time Stop Time Status Last Admin (NS Flush) 2 ml UNSCH PRN IV FLUSH 09/09/17 22:00 (NS Flush) 2 ml BID IV FLUSH 09/10/17 09:00 09/14/17 08:25 (Tylenol) 650 mg Q4H PRN PO 09/09/17 22:00 (Zofran Inj) 4 mg Q6H PRN IVP 09/09/17 22:00 (Narcan Inj) 0.4 mg UNSCH PRN IV PUSH 09/09/17 22:00 (Milk Of Magnesia Liq) 30 ml Q12H PRN PO 09/09/17 22:00 (Senokot) 17.2 mg Q12H PRN PO 09/09/17 22:00 (Dulcolax Supp) 10 mg DAILY PRN RECTAL 09/09/17 22:00 (Lactulose Liq) 30 ml DAILY PRN PO 09/09/17 22:00 Ceftriaxone Sodium 1000 mg/ Sodium Chloride 100 ml @ 200 mls/hr Q24H IV 09/10/17 21:00 09/13/17 20:24 Azithromycin 250 mg/Sodium Chloride 250 ml @ 250 mls/hr Q24H IV 09/10/17 22:00 09/13/17 21:12 (D50w (Vial) Inj) 50 ml UNSCH PRN IV PUSH 09/09/17 22:15 (Glucagon Inj) 1 mg UNSCH PRN OTHER 09/09/17 22:15 (NovoLOG SUPPLEMENTAL SCALE) 1 ACHS SLIDING SCALE SQ 09/10/17 08:00 09/13/17 16:44 (Duoneb Neb) 1 ampule Q4HR NEB PRN NEB 09/10/17 02:00 09/14/17 03:20 (Heparin Inj) 5,000 units Q12HR SQ 09/10/17 09:00 09/14/17 08:24 (Aspirin Chew) 81 mg DAILY CHEW 09/11/17 09:00 09/14/17 08:24 (Plavix) 75 mg DAILY PO 09/11/17 09:00 09/14/17 08:24 (Spiriva Inh) 18 mcg DAILY INH 09/11/17 09:00 09/14/17 08:24 (Duoneb Neb) 1 ampule Q8HR WHILE AWAKE NEB NEB 09/11/17 08:00 09/14/17 07:33 (Claritin) 5 mg DAILY PO 09/11/17 09:00 09/14/17 08:24 (Cozaar) 50 mg HS PO 09/10/17 21:00 09/13/17 20:24 (Pill Splitter) 1 ea UNSCH PRN OTHER 09/10/17 18:00 (Bumetanide) 1 mg DAILY PO 09/13/17 09:00 09/14/17 08:25 Vital Signs / I&O Vital Signs Date Time Temp Pulse Resp B/P (MAP) Pulse Ox O2 Delivery O2 Flow Rate FiO2 09/14/17 07:36 98.0 90 20 148/67 (94) 99 09/14/17 07:36 91 09/14/17 07:34 98 09/14/17 06:00 91 09/14/17 05:01 91 09/14/17 04:00 93 09/14/17 03:03 96.8 91 17 125/58 (80) 94 09/14/17 03:00 90 09/14/17 02:00 87 09/13/17 23:00 97.8 97 18 122/61 (81) 97 09/13/17 23:00 94 09/13/17 20:30 21 09/13/17 19:41 98.1 97 18 151/71 (97) 98 09/13/17 19:00 90 09/13/17 18:03 92 09/13/17 17:00 93 09/13/17 16:00 89 09/13/17 15:00 90 09/13/17 15:00 98.1 86 20 131/60 (83) 98 09/13/17 14:00 86 09/13/17 13:00 92 09/13/17 12:00 86 09/13/17 11:00 98.0 92 20 126/58 (80) 92 09/13/17 11:00 96 09/13/17 10:00 83 09/13/17 09:00 93 I/O 09/13/17 09/13/17 09/13/17 09/14/17 09/14/17 09/14/17 07:00 15:00 23:00 07:00 15:00 23:00 Intake Total 830 ml 600 ml 480 ml Output Total 375 ml 400 ml 500 ml Balance 455 ml 200 ml -20 ml Intake Oral 480 ml 600 ml 480 ml IV Total 350 ml Output Urine Total 375 ml 400 ml 500 ml # Bowel Movements 0 0 Physical Exam GENERAL: NAD, AAOx3 SKIN: Warm and dry. HEAD: Atraumatic. Normocephalic. EYES: Pupils equal and round. No scleral icterus. No injection or drainage. ENT: No nasal bleeding or discharge. Mucous membranes pink and moist. NECK: Trachea midline. No JVD. CARDIOVASCULAR: Regular rate and rhythm. RESPIRATORY: No accessory muscle use. Decreased breath sounds bilaterally GASTROINTESTINAL: Abdomen soft, non-tender, nondistended. Hepatic and splenic margins not palpable. MUSCULOSKELETAL: Extremities without clubbing, cyanosis, or edema. No obvious deformities. NEUROLOGICAL: Awake and alert. No obvious cranial nerve deficits. Motor grossly within normal limits. Five out of 5 muscle strength in the arms and legs. Normal speech. PSYCHIATRIC: Appropriate mood and affect; insight and judgment normal. Laboratory Laboratory Tests Test 09/14/17 04:23 White Blood Count 4.2 TH/MM3 Red Blood Count 3.43 MIL/MM3 Hemoglobin 9.6 GM/DL Hematocrit 29.9 % Mean Corpuscular Volume 87.1 FL Mean Corpuscular Hemoglobin 28.1 PG Mean Corpuscular Hemoglobin Concent 32.3 % Red Cell Distribution Width 18.4 % Platelet Count 262 TH/MM3 Mean Platelet Volume 8.9 FL Neutrophils (%) (Auto) 53.0 % Lymphocytes (%) (Auto) 29.8 % Monocytes (%) (Auto) 14.4 % Eosinophils (%) (Auto) 2.1 % Basophils (%) (Auto) 0.7 % Neutrophils # (Auto) 2.2 TH/MM3 Lymphocytes # (Auto) 1.3 TH/MM3 Monocytes # (Auto) 0.6 TH/MM3 Eosinophils # (Auto) 0.1 TH/MM3 Basophils # (Auto) 0.0 TH/MM3 CBC Comment DIFF FINAL Differential Comment Blood Urea Nitrogen 40 MG/DL Creatinine 2.39 MG/DL Random Glucose 141 MG/DL Calcium Level 8.9 MG/DL Sodium Level 139 MEQ/L Potassium Level 3.5 MEQ/L Chloride Level 106 MEQ/L Carbon Dioxide Level 22.6 MEQ/L Anion Gap 10 MEQ/L Estimat Glomerular Filtration Rate 20 ML/MIN Assessment and Plan Problem List: (1) CHF (congestive heart failure) ICD Codes: I50.9 - Heart failure, unspecified Status: Acute (2) Chronic kidney disease ICD Codes: N18.9 - Chronic kidney disease, unspecified (3) CAD (coronary artery disease) ICD Codes: I25.10 - Atherosclerotic heart disease of [place] coronary artery without angina pectoris Assessment and Plan 1) Acute on chronic CHF Echo showing decreased EF, previously normal EF Plan for possible cardiac catheterization tomorrow, if PCI necessary may need to be staged 2) Rising creatinine Bumex decreased HCTZ stopped Creatinine mildly better today 3) CAD Plan cardiac catheterization tomorrow Con't ASA/Plavix Problem Qualifiers (1) CHF (congestive heart failure): Qualified Codes: I50.23 - Acute on chronic systolic (congestive) heart failure Shravan Muniz DO Sep 14, 2017 08:45
[2017-09-14] MEDS: cefTRIAXone INJ 1,000 MG in SODIUM CHLORIDE 0.9% INJ 100 ML IV SCH (20:55)
[2017-09-14] MEDS: LOSARTAN 50 MG TAB PO SCH (20:55)
[2017-09-14] MEDS: AZITHROMYCIN INJ 250 MG in SODIUM CHLOR 0.9% 250 ML INJ 250 ML IV SCH (21:54)
[2017-09-14] MEDS: ACETAMINOPHEN 325 MG TAB PO PRN (23:25)
[2017-09-15] VITALS (28 sets, daily range): BP systolic 128–153; BP diastolic 60–89; PULSE 78–99; RESP 18–20; TEMP 96.3–97; O2SAT 93–98
[2017-09-15] MEDS: RESP: ALBUTEROL 2.5 MG/IPRATROPIUM 0.5 MG NEB (PRN) NEB (03:48)
[2017-09-15 04:50] LABS: AUTOMATED NEUTROPHIL # 2.2 TH/MM3 (1.8-7.7); BASOPHIL % 0.6 % (0.0-2.0); EOSINOPHIL # 0.1 TH/MM3 (0-0.4); EOSINOPHIL % 1.7 % (0.0-4.0); HEMATOCRIT 30.3 % (35.0-46.0); HEMOGLOBIN 9.8 GM/DL (11.6-15.3); LYMPH % 25.1 % (9.0-44.0); MEAN CELL VOLUME 86.6 FL (80.0-100.0); MEAN CORPUSCULAR HEMOGLOBIN 27.9 PG (27.0-34.0); MEAN CORPUSCULAR HGB CONC 32.2 % (32.0-36.0); MONO % 14.7 % (0.0-8.0); MONOCYTE # 0.6 TH/MM3 (0-0.9); NEUT % 57.9 % (16.0-70.0); PLATELET COUNT 249 TH/MM3 (150-450); RED CELL DISTRIBUTION WIDTH 18.3 % (11.6-17.2); WHITE BLOOD COUNT 3.8 TH/MM3 (4.0-11.0)
[2017-09-15 05:10] LABS: BICARBONATE 24.7 MEQ/L (21.0-32.0); CREATININE 2.53 MG/DL (0.50-1.00)
[2017-09-15] MEDS: INSULIN ASPART SUPPLEMENTAL SCALE SQ SCH ×4 (07:37→21:28)
[2017-09-15] MEDS: RESP: ALBUTEROL 2.5 MG/IPRATROPIUM 0.5 MG NEB (SCH) NEB (07:53)
[2017-09-15] MEDS: HEPARIN SODIUM - SQ 10,000 UNITS/ML VIAL SQ SCH (09:00)
[2017-09-15] MEDS: TIOTROPIUM BROMIDE 18 MCG INH INH SCH (09:00)
[2017-09-15] MEDS ORDERED: MIDAZOLAM HCL 2 MG/2 ML VIAL ONE (09:20)
[2017-09-15] MEDS ORDERED: diphenhydrAMINE HCL 50 MG/ML VIAL ONE (09:39)
[2017-09-15] MEDS ORDERED: methylPREDNISolone SOD SUCC 125 MG/2 ML VIAL ONE (09:40)
[2017-09-15] MEDS ORDERED: FAMOTIDINE 20 MG/2 ML VIAL ONE (09:40)
[2017-09-15] MEDS ORDERED: HEPARIN-NS/PF FLUSH BAG 2,000 ML IV FLUSH ONE (09:58)
--- NOTE | 2017-09-15 10:42 | CATHPROC ---
HSystem HIS Report Study Information Study Number Admission Scheduled Start Study Start [id number] Sep 12 2017 12:20PM 09/14/2017 Sep 15 2017 9:01AM [facility] Cardiac Catheterization Admit Source Facility Department Other [facility] - Adjunct History Instructor Physician and Clinical Staff Initial Shravan Dyer Subeditor Ivett Mckeon RN Recorder Katya Choe,RT(R) Scrub Vera Thomas,RT(R) Procedures Performed Procedure Location (Site) Vessel Name Coronary Angiograms LCA Left Coronary Coronary Angiograms RCA Right Coronary Coronary Angiograms HAYES-LAD Left Coronary Coronary Angiograms SVG-OM CIRC Coronary Angiograms SVG-RCA Right Coronary Wire insertion Fem Art (right) Femoral Art Wire insertion Fem Vein (right) Femoral Vein Equipment Time Official Court Interpreter Description Size Mfg Part Number Used/Scraped [id number] 09:24 WITT LICEA SWAN DAVID CATHETER FR 7 Used *[id number] TRANSDUCER, TRUWAVE [id number] 09:24 WITT LICEA * Used W/STOCKCOCK *[id number] TRANSDUCER, TRUWAVE [id number] 09:24 WITT LICEA * Used W/STOCKCOCK *[id number] INTRODUCER SET, 09:24 [employer] FR 5 [id number] *[id number] Used MICROPUNCTURE, STIFFENED [id number] *[id number] 534-520T *[id number] 09:24 [employer]ES PACK, CCL CUSTOM * Used *[id number] 09:24 [employer] JR 4.0 DXTERITY CATHETER FR 5 Used *[id number] 09:24 [employer] W[employer], 3MMJ .035 180CM 180CM Used *[id number] 10:06 [employer] W[employer], EXCHANGE 260CM 3MMJ 260CM Used *[id number] 10:06 [employer] W[employer], EXCHANGE 260CM 3MMJ 260CM Used *[id number] 09:24 NAMIC MANIFOLD, 2 PORT * Used *[id number] 09:24 NAMIC MANIFOLD, 4 PORT * Used *[id number] 09:24 [employer] OMNIPAQUE, 350 MG, 150ML 150ML [id number] Used [id number] 09:24 [employer] BLANKET,WARM AIR CCL * Used *[id number] 09:24 TERUMO MEDICAL SHEATH, FR5 TERUMO (10CM) FR 5 Used *[id number] 09:24 [employer] MEDICAL SHEATH, FR7 TERUMO (10CM) FR 7 Used *[id number] History: Current Medications Medication Dosage/Unit Route Frequency Last Date/Time Taken ASA PLAVIX Insulin Hyzaar History: Allergies Allergy Reaction Sulfa (Sulfonamide Antibiotics) potassium iodide EDEMA sodium iodide EDEMA codeine SEVERE MOOD SWINGS pseudoephedrine THROAT SWELLS sulfamethoxazole NAUSEA, VOMITING, DIZZINESS trimethoprim NAUSEA, VOMITING, DIZZINESS iodine EDEMA povidone-iodine EDEMA etodolac Chest Pain loratadine Severe Dyspnea and swelling metformin N/V levofloxacin NAUSEA, VOMITING, DIZZINESS Tylenol Sinus Dyspnea and Swelling History: Risk Factors Family History of Hypertension Dyslipidemia Previous CA Previous Heart Failure Premature CAD No Yes No Yes Yes Prior Valve Prior PCI Prior PCIDate Prior CABG Prior CABGDate Surgery No Yes 11/07/2016 Yes 08/09/2014 Cerebrovascular Peripheral Artery Chronic Lung On Dialysis Diabetes Diabetes Therapy Disease Disease Disease No No Yes Yes Yes Insulin History: Symptoms/Diagnosis Selection Items SOB History: Stress Tests Stress or Imaging Studies Performed No History: Other Current Smoker Method Quit Packs a Day Years Used Pack Years No Cigarettes 1 Years Ago 1 2 2 Labs Hgb (g/dl) Hct (%) RBC (MIL/MM3) WBC (l/cumm) Platelets (thousands) 11.60-17.00 35.00-51.00 4.00-5.90 4.00-11.00 150.00-450.00 9.8 30.3 3.8 3.8 249 Glucose (mg/dl) BUN (mg/dl) Creatinine (mg/dl) BUN:Creatinine (1:x) 74.00-106.00 7.00-18.00 0.50-1.30 10.00-20.00 96 43 2.5 17.2 Na (meq/l) K (meq/l) Cl (meq/l) CO2 (mmol/L) Ca (mg/dl) 136.00-145.00 3.50-5.10 98.00-107.00 21.00-32.00 8.50-10.10 140 3.7 106 22.6 8.9 CPK (u/l) CPK-MB (ng/ML) 26.00-308.00 0.50-3.60 97 3.8 Medication Medication Total Dose (Bolus/Oral) Medication Total Dosage/Unit 1% XYLOCAINE 20 mL BENADRYL 25 mg FENTANYL 25 mcg OXYGEN 3 l/min PEPCID 20 mg SOLU-MEDROL 125 mg Medications (Bolus/Oral) Medication Time Given Dosage/Unit Administered By Reason SOLU-MEDROL 09/15/2017 9:41:09 AM 125 mg Ivett Mckeon 125 mg SOLU-MEDROL given in lab by Ivett Mckeon RN in Right Antecubital via Peripheral IV. 1% XYLOCAINE 09/15/2017 9:41:37 AM 20 mL Shravan Muniz 20 mL 1% XYLOCAINE given in lab by Shravan Muniz in Right Groin via Subcutaneous. BENADRYL 09/15/2017 9:43:40 AM 25 mg Ivett Mckeon 25 mg BENADRYL given in lab by Ivett Mckeon RN via Peripheral IV. PEPCID 09/15/2017 9:46:40 AM 20 mg Ivett Mckeon 20 mg PEPCID given in lab by Ivett Mckeon RN via Peripheral IV. FENTANYL 09/15/2017 9:48:48 AM 25 mcg Ivett Mckeon 25 mcg FENTANYL given in lab by Ivett Mckeon RN via Peripheral IV. OXYGEN 09/15/2017 9:58:01 AM 3 l/min Ivett Mckeon 3 l/min OXYGEN given in lab by Ivett Mckeon RN via Nasal. Medication (Drip) Medication Time Given Dosage/Unit Concentration/Unit Diluent (ml) Solution IV Solutions 09/15/2017 9:08:09 AM 0 mL (IV) 500 NaCl .9 IV Solutions given in lab by Ivett Mckeon RN in Right Antecubital via Peripheral IV. Pump/Drip Fl ow = 20 ml/hr using NaCl .9. Initial Case Assessment Cardiovascular HR Rhythm NIBP Chest Pain 96 REG 134/74 0 Edema Present Skin color Skin None Normal Warm Circulatory - Right Pulses Dorsalis Pedis Femoral 1 2 Scale (0,1,2,3,4,d) Circulatory - Left Pulses Dorsalis Pedis Femoral 1 2 Scale (0,1,2,3,4,d) Circulatory - Lower Extremities Color Lower Right Color Lower Left Normal Normal Neurological State Oriented to time-place- Alert Moves all extremities person Respiration - General Respiration Rate SpO2 (%) Short Of Breath (B/min) 18 95 Yes Chronological Log Time Study Chronological Log 8:58:40 Patient arrived via Bed. 9:07:41 Patient Name, D.O.B, / Armband Verified By R.N. 9:07:42 Consent signed by the physician and the patient and verified by the Adjunct History Instructor staff. 9:07:43 Pre-op and post- op instructions given; patient acknowledges understanding of instructions. 9:07:43 Verbal Stimulation=2 Physical Stimulation=2 Airway=2 Respiration=2 TOTAL=8. (0=absent, 1=li mited, 2=present) 9:07:53 Patient has been NPO for More than 6Hrs. 9:07:54 Skin Breakdown-NONE 9:07:55 Patient Warmer Placed on the Table. 9:07:57 A # 20 IV was noted in the Antecubital (right). Grade = 0 IV Solutions given in lab by Ivett Mckeon RN in Right Antecubital via Peripheral IV. Pump/D rip Flow = 20 ml/hr 9:08:09 using NaCl .9. Vitals capture started with the following parameters, Patient=Adult, Interval=5 min, Initial Pr stgplv=606 mmHg, 9:08:38 Deflation Rate=5 mmHg, Cuff placed on Left Arm 9:09:20 HR=96 bpm, RQFH=259/75 mmhg, SpO2=95.0 %, Resp=20 B/min, Pain=0, Vernon=10, Baires=2 9:10:22 Reference ECG taken 9:13:06 History and physical on the chart or being dictated. Assessment: Initial Case, HR=96 BPM, Rhythm=REG, FSQA=455/74 mmhg, Chest Pain=0, Edema=None, Color=Normal, Skin = Warm Right Pulses: Kenny Ped=1, Femoral=2 Left Pulses: Kenny Ped=1, Femoral=2 9:13:07 Lower Right Extremities: Color=Normal Lower Left Extremities: Color=Normal Neurological: State=Alert, Ox3, [place] Respiration: Resp=18 B/min, SpO2=95 %, Short of Breath 9:13:21 Bilateral groins prepped with 2% chlorhexidine, and draped after a 3 minute waiting time. 9:15:00 HR=97 bpm, DYFS=845/74 mmhg, SpO2=95.0 %, Resp=20 B/min, Pain=0, Vernon=10, Baires=2 9:19:14 HR=97 bpm, NDHM=159/75 mmhg, SpO2=94.0 %, Resp=20 B/min, Pain=0, Vernon=10, Baires=2 9:20:34 Pressure channel 1 zeroed. 9:21:35 Pressure channel 1 zeroed. 9:24:15 HR=96 bpm, QECQ=561/76 mmhg, SpO2=94.0 %, Resp=20 B/min, Pain=0, Vernon=10, Baires=2 9:25:21 MD paged 9:29:18 HR=96 bpm, DQCY=849/76 mmhg, SpO2=97 %, Resp=23 B/min, Pain=0, Vernon=10, Baires=2 9:30:58 MD arrived. 9:34:17 HR=96 bpm, RSLW=012/77 mmhg, SpO2=94.0 %, Resp=22 B/min, Pain=0, Vernon=10, Baires=2 Time Out. Correct patient, correct procedure, correct physician, power injector not loaded with contrast with surgical 9:38:48 team present. Time Out Concurred by MD and individual staff in procedure. Time Out #2 - Consents verified, patient in correct position, all results are labled and display ed, safety precautions 9:39:03 taken. Time Out concurred by MD, individual staff and PRESCHOOL ASSISTANT DIRECTOR in procedure. 9:39:21 HR=96 bpm, SGDW=059/72 mmhg, SpO2=93.0 %, Resp=17 B/min, Pain=0, Vernon=10, Baires=2 9:41:09 125 mg SOLU-MEDROL given in lab by Ivett Mckeon, SAIDA in Right Antecubital via Peripheral I V. 9:41:29 Case Start 9:41:31 Verbal Stimulation=2 Physical Stimulation=2 Airway=2 Respiration=2 TOTAL=8. (0=absent, 1=castro ited, 2=present) 9:41:37 20 mL 1% XYLOCAINE given in lab by Shravan Muniz in Right Groin via Subcutaneous. 9:43:40 25 mg BENADRYL given in lab by Ivett Mckeon, RN via Peripheral IV. 9:44:19 Access site was Right Femoral Artery. with MP kit 9:44:22 HR=96 bpm, NHFN=633/74 mmhg, SpO2=92.0 %, Resp=30 B/min, Pain=0, Vernon=10, Baires=2 9:44:24 A wire was inserted via Fem Art (right). 9:44:32 A SHEATH, FR5 TERUMO (10CM) FR 5 was advanced into the Fem Art (right) using the Percutaneou s technique. 9:46:40 20 mg PEPCID given in lab by Ivett Mckeon, RN via Peripheral IV. 9:46:47 Access site was Right Femoral Vein. 9:46:52 A wire was inserted via Fem Vein (right). 9:47:11 A SHEATH, FR7 TERUMO (10CM) FR 7 was advanced into the Fem Vein (right) using the Percutaneo us technique. 9:48:45 An injection in the Fem Art (right) was made through the SHEATH, FR5 TERUMO (10CM) FR 5. 9:48:48 25 mcg FENTANYL given in lab by Ivett Mckeon, RN via Peripheral IV. 9:49:19 HR=95 bpm, SXLI=255/72 mmhg, SpO2=93.0 %, Resp=24 B/min, Pain=0, Vernon=10, Baires=2 9:49:29 A SWAN DAVID CATHETER FR 7 was inserted via Fem Vein (right) Recorded Pressure: PCW, HR=95, Condition=Condition 1 9:53:38 (Pulmonary Capillary Wedge) PCW 44/44/42 9:54:10 Saturation: Site=PA (Pulmonary Artery) , O2=37.9 %, Hgb=9.8 gm/dl, Condition=Condition 1. Us ed in calculation. 9:54:20 HR=96 bpm, IGLN=550/77 mmhg, SpO2=92.0 %, Resp=24 B/min, Pain=0, Vernon=10, Baires=2 9:55:09 Saturation: Site=Ao (Aorta) , O2=89 %, Hgb=9.8 gm/dl, Condition=Condition 1. Used in calcula tion. Recorded Pressure: MPA, HR=96, Condition=Condition 1 9:55:51 (Main Pulmonary Artery) MPA 67/34/49 Recorded Pressure: RV, HR=97, Condition=Condition 1 9:56:26 (Right Ventricle) RV 72/15/24 Recorded Pressure: RA, HR=97, Condition=Condition 1 9:56:56 (Right Atrium) RA 25// 9:57:31 [place] Catheter Removed 9:58:01 3 l/min OXYGEN given in lab by Ivett Mckeon, SAIDA via Nasal. A JR 4.0 DXTERITY CATHETER FR 5 was advanced over a wire. OMNIPAQUE, 350 MG, 150ML 150ML was us ed for 9:58:16 injections. Recorded Pressure: LV, HR=97, Condition=Condition 1 9:58:57 (Left Ventricle) LV 161/21/34 Recorded Pressure: LV, Ao, HR=97, Condition=Condition 1 9:59:10 (Left Ventricle) LV 164/21/33, (Aorta) Ao 161/78/113 9:59:19 HR=96 bpm, PFOL=068/79 mmhg, SpO2=98.0 %, Resp=19 B/min, Pain=0, Vernon=10, Baires=2 9:59:48 The RCA was injected and visualized at various angles. OMNIPAQUE, 350 MG, 150ML 150ML used. 10:00:14 The SVG-OM was injected and visualized at various angles. OMNIPAQUE, 350 MG, 150ML 150ML us ed. 10:01:23 The SVG-RCA was injected and visualized at various angles. OMNIPAQUE, 350 MG, 150ML 150ML u sed. 10:04:20 HR=95 bpm, QAFJ=896/88 mmhg, SpO2=99.0 %, Resp=21 B/min, Pain=0, Vernon=10, Baires=2 A ABDIAS INFINITI CATHETER FR 5 was advanced over a wire. OMNIPAQUE, 350 MG, 150ML 150ML was used for 10:05:41 injections. 10:06:02 A WIRE, EXCHANGE 260CM 3MMJ 260CM was inserted via Fem Art (right). 10:07:55 The HAYES-LAD was injected and visualized at various angles. OMNIPAQUE, 350 MG, 150ML 150ML used. After removing the current catheter a JL 4.0 INFINITI CATHETER FR 5 was advanced over a WIRE, 3 MMJ .035 180CM 10:09:07 180CM. 10:09:21 HR=94 bpm, JPNP=540/78 mmhg, SpO2=98.0 %, Resp=24 B/min, Pain=0, Vernon=10, Baires=2 10:10:16 The LCA was injected and visualized at various angles. OMNIPAQUE, 350 MG, 150ML 150ML used . 10:11:40 Catheter was removed 10:14:22 HR=95 bpm, HJCN=579/77 mmhg, SpO2=98.0 %, Resp=22 B/min, Pain=0, Vernon=10, Baires=2 10:14:27 Catheter(s) removed without difficulty 10:16:38 arterial Sheath removed; pressure applied to access site. vera thomas RT 10:19:21 HR=97 bpm, PRWV=755/75 mmhg, EpD8=471.0 %, Resp=22 B/min, Pain=0, Vernon=10, Baires=2 10:24:24 HR=95 bpm, KQEN=096/78 mmhg, SpO2=90.0 %, Resp=14 B/min, Pain=0, Vernon=10, Baires=2 10:29:25 HR=95 bpm, RVOD=051/75 mmhg, SpO2=94.0 %, Resp=20 B/min, Pain=0, Vernon=10, Baires=2 10:29:29 venous Sheath removed; pressure applied to access site. 10:34:22 HR=94 bpm, FZWJ=595/79 mmhg, SpO2=90.0 %, Resp=20 B/min, Pain=0, Vernon=10, Baires=2 hemastasis acheived 10:37:41 End Study - Contrast Media Used In Study Contrast Total Opened (mL) Total Used (mL) Total Wasted (mL) Omnipaque 60 60 0 End Study - Maximum Contrast Load Max Contrast Load (mL) 137.0 End Study - Radiation Exposure Fluoro Time (minutes) 7.5 End Study - Sheaths Sheaths Pulled By Sheath Hold Time (min) Vera Thomas 20 End Study - Patient Disposition Complications Transferred To Telemetry Bed
[2017-09-15] MEDS ORDERED: MISC INFORMATION XX ONE (10:45)
--- NOTE | 2017-09-15 11:24 | MA ---
cc: SHRAVAN SANDHU DO DATE 09/15/2017 PROCEDURE 1. Left heart catheterization. 2. Right heart catheterization. 3. Coronary angiogram. 4. Bypass angiogram. PREPROCEDURE DIAGNOSIS 1. Acute systolic heart failure. 2. Coronary artery disease with a history of CABG. 3. New cardiomyopathy. POSTPROCEDURE DIAGNOSIS 1. Coronary artery disease with a history of CABG (3/3 grafts patent). 2. Moderate pulmonary hypertension type II, (due to elevated left-sided filling pressures). MEDICATIONS 1. Solu-Medrol 125 mg. 2. Benadryl 25 mg. 3. Pepcid 20 mg. 4. Fentanyl 25 mcg. CONTRAST USED 60 cc. FLUOROSCOPY 8.0 minutes. SEDATION Moderate sedation, zero minutes. ESTIMATED BLOOD LOSS 10 cc. PROCEDURAL SUMMARY Helene Sanchez is a pleasant 71-year-old female whom I see in the office. She presented to [facility] due to significant shortness of breath. While here after being diuresed an echocardiogram was obtained and showed a new cardiomyopathy with an ejection fraction around 25%. Because of this she was recommended right and left heart catheterization to help with diagnosis. The risks, benefits and alternatives were explained to her and she consented as such. She was brought to lab and prepped in the usual sterile fashion. The right femoral artery was accessed using a modified Seldinger technique and placement of a 5 [place]une[place] sheath. The right femoral vein was accessed using a modified Seldinger technique and placement of a 7 [place]une[place] sheath. Both of these were easily aspirated and flushed. A Onward-Glen catheter was advanced to a wedge position and oxygen saturations as well as pressures were measured upon pullback in a standard fashion. The Onward-Glen catheter was removed. A JR4 was advanced over a J-wire to the ascending aorta and across the aortic valve for measurement of left ventricular pressure. This was pulled back across the aortic valve showing no significant gradient of aortic stenosis. The JR4 was used for selective angiography of the right coronary artery system, the SVG to obtuse marginal, and SVG to PDA. This was then exchanged for an IM catheter which was used for selective angiography of the HAYES to LAD. This was exchanged out for a JL4 which was used for selective angiography of the left coronary artery system. The JL4 was removed over a J-wire. The sheaths were removed and pressure held for hemostasis. The patient left the laboratory phlebotomist cardiovascularly stable. FINDINGS Left Main: Small vessel overall with 60% stenosis in the ostial and distal portion. It bifurcates into an LAD and circumflex. LAD: 100% occluded in the proximal to midportion. It does give off one small diagonal which is overall around 1 mm with a 90% lesion in the midportion. Left Circumflex: Small to moderate size vessel with a 90% stenosis in the ostial portion. It does give off an obtuse marginal with 70% proximal stenosis. Distally there is competitive flow from the vein graft. It also has an overall small AV groove circumflex. RCA: Normal size vessel with 100% occlusion in the midportion and distally. Competitive flow is seen. HAYES to LAD: Patent. It fills antegrade as well as retrograde in an overall extremely small LAD and diagonal system. SVG to Obtuse Marginal: Patent. It fills both antegrade and retrograde the obtuse marginal as well as the midportion and AV groove circumflex. Distally there is a stent which is 100% occluded in an overall small vessel. SVG to PDA: Patent. It fills both the PDA and a PLB which are overall small. HEMODYNAMICS RA 23. RV 72/15. RVEDP 24. PA 67/34, mean PA 49. Wedge 42. LVEDP 33. Cardiac output 3.2. Cardiac index 1.8. Aortic oxygen saturation 89. Pulmonary artery oxygen saturation 37.9. IMPRESSIONS 1. Coronary artery disease with a history of CABG x3 (3/3 grafts patent). 2. New cardiomyopathy. 3. Acute systolic heart failure with an ejection fraction of 25%. 4. Moderate pulmonary hypertension type II (due to elevated left-sided filling pressures). 5. Possible intrinsic lung disease by right heart catheterization. RECOMMENDATIONS 1. Ms. Sanchez appears to have all of her grafts patent with no interveneable lesions to help out with her cardiomyopathy. 2. She still has significantly elevated left-sided filling pressures and we will need to check her creatinine again in the morning and then most likely diurese her as possible. We will have to probably do some permissive elevation of her creatinine to try to help get fluid off. 3. I did discuss with her the possibility that she may need eventual dialysis as she has significant kidney disease as well as her fluid overload state. 4. I will ask pulmonary to see her as she does have significant difference between her LVEDP and wedge and the possibility of intrinsic lung disease as part of her shortness of breath, but her main component is obviously her acute systolic heart failure. 5. Further recommendations will be made based on the hospital course. Thank you for allowing me to see Helene Sanchez. If there are any questions please do not hesitate to call. Shravan Sandhu DO VGP/BT /10:42 AM /10:58 AM
[2017-09-15] MEDS: CLOPIDOGREL 75 MG TAB PO SCH (11:32)
[2017-09-15] MEDS: LORATADINE 10 MG TAB PO SCH (11:32)
[2017-09-15] MEDS: ASPIRIN 81 MG CHEW TAB CHEW SCH (11:33)
[2017-09-15] MEDS: BUMETANIDE 1 MG TAB PO SCH (11:33)
[2017-09-15] MEDS: SODIUM CHLORIDE 0.9% FLUSH 10 ML FLUSH IV FLUSH SCH ×2 (11:34→20:31)
[2017-09-15] MEDS ORDERED: IOHEXOL 350 MG/ML 100 ML BTL (for Cath Lab) OTHER ONE (12:25)
--- NOTE | 2017-09-15 12:43 | PD.CARD.PN ---
Subjective Subjective Remarks SOB better No chest pain S/p cardiac catheterization Objective Medications Current Medications Medications (Trade) Dose Ordered Sig/Briana Route Start Time Stop Time Status Last Admin (NS Flush) 2 ml UNSCH PRN IV FLUSH 09/09/17 22:00 (NS Flush) 2 ml BID IV FLUSH 09/10/17 09:00 09/15/17 11:34 (Tylenol) 650 mg Q4H PRN PO 09/09/17 22:00 09/14/17 23:25 (Zofran Inj) 4 mg Q6H PRN IVP 09/09/17 22:00 (Narcan Inj) 0.4 mg UNSCH PRN IV PUSH 09/09/17 22:00 (Milk Of Magnesia Liq) 30 ml Q12H PRN PO 09/09/17 22:00 (Senokot) 17.2 mg Q12H PRN PO 09/09/17 22:00 (Dulcolax Supp) 10 mg DAILY PRN RECTAL 09/09/17 22:00 (Lactulose Liq) 30 ml DAILY PRN PO 09/09/17 22:00 Ceftriaxone Sodium 1000 mg/ Sodium Chloride 100 ml @ 200 mls/hr Q24H IV 09/10/17 21:00 09/14/17 20:55 Azithromycin 250 mg/Sodium Chloride 250 ml @ 250 mls/hr Q24H IV 09/10/17 22:00 09/14/17 21:54 (D50w (Vial) Inj) 50 ml UNSCH PRN IV PUSH 09/09/17 22:15 (Glucagon Inj) 1 mg UNSCH PRN OTHER 09/09/17 22:15 (NovoLOG SUPPLEMENTAL SCALE) 1 ACHS SLIDING SCALE SQ 09/10/17 08:00 09/14/17 20:55 (Duoneb Neb) 1 ampule Q4HR NEB PRN NEB 09/10/17 02:00 09/15/17 03:48 (Aspirin Chew) 81 mg DAILY CHEW 09/11/17 09:00 09/15/17 11:33 (Plavix) 75 mg DAILY PO 09/11/17 09:00 09/15/17 11:32 (Spiriva Inh) 18 mcg DAILY INH 09/11/17 09:00 09/14/17 08:24 (Claritin) 5 mg DAILY PO 09/11/17 09:00 09/15/17 11:32 (Pill Splitter) 1 ea UNSCH PRN OTHER 09/10/17 18:00 (Bumetanide) 1 mg DAILY PO 09/13/17 09:00 09/15/17 11:33 Miscellaneous Information 1 ONCE ONCE XX 09/15/17 10:45 09/15/17 10:46 UNV Vital Signs / I&O Vital Signs Date Time Temp Pulse Resp B/P (MAP) Pulse Ox O2 Delivery O2 Flow Rate FiO2 09/15/17 12:00 90 09/15/17 11:00 96.4 92 19 138/67 (90) 96 09/15/17 11:00 92 09/15/17 08:00 88 09/15/17 07:55 93 09/15/17 07:38 96.4 90 20 145/70 (95) 96 09/15/17 07:00 91 09/15/17 06:00 88 09/15/17 05:00 90 09/15/17 04:00 93 09/15/17 03:20 96.3 87 18 130/89 (103) 98 09/15/17 03:00 86 09/15/17 02:00 86 09/15/17 01:00 92 09/15/17 00:00 92 09/14/17 23:10 95.6 96 18 128/60 (82) 98 09/14/17 23:00 95 09/14/17 22:00 97 09/14/17 21:00 94 09/14/17 20:59 96 Nasal Cannula 09/14/17 20:30 95.5 94 20 145/66 (92) 97 09/14/17 20:00 94 09/14/17 19:00 94 09/14/17 18:00 90 09/14/17 17:00 94 09/14/17 16:00 94 09/14/17 15:00 94 09/14/17 15:00 97.9 85 20 128/59 (82) 95 09/14/17 14:00 93 09/14/17 13:00 94 I/O 09/14/17 09/14/17 09/14/17 09/15/17 09/15/17 09/15/17 07:00 15:00 23:00 07:00 15:00 23:00 Intake Total 480 ml 820 ml 730 ml Output Total 500 ml 500 ml 750 ml Balance -20 ml 320 ml -20 ml Intake Oral 480 ml 720 ml 480 ml IV Total 100 ml 250 ml Output Urine Total 500 ml 500 ml 750 ml # Bowel Movements 0 0 Physical Exam GENERAL: NAD, AAOx3 SKIN: Warm and dry. HEAD: Atraumatic. Normocephalic. EYES: Pupils equal and round. No scleral icterus. No injection or drainage. ENT: No nasal bleeding or discharge. Mucous membranes pink and moist. NECK: Trachea midline. No JVD. CARDIOVASCULAR: Regular rate and rhythm. RESPIRATORY: No accessory muscle use. Decreased breath sounds bilaterally GASTROINTESTINAL: Abdomen soft, non-tender, nondistended. Hepatic and splenic margins not palpable. MUSCULOSKELETAL: Extremities without clubbing, cyanosis, or edema. No obvious deformities. NEUROLOGICAL: Awake and alert. No obvious cranial nerve deficits. Motor grossly within normal limits. Five out of 5 muscle strength in the arms and legs. Normal speech. PSYCHIATRIC: Appropriate mood and affect; insight and judgment normal. Laboratory Laboratory Tests Test 09/15/17 03:39 White Blood Count 3.8 TH/MM3 Red Blood Count 3.50 MIL/MM3 Hemoglobin 9.8 GM/DL Hematocrit 30.3 % Mean Corpuscular Volume 86.6 FL Mean Corpuscular Hemoglobin 27.9 PG Mean Corpuscular Hemoglobin Concent 32.2 % Red Cell Distribution Width 18.3 % Platelet Count 249 TH/MM3 Mean Platelet Volume 9.0 FL Neutrophils (%) (Auto) 57.9 % Lymphocytes (%) (Auto) 25.1 % Monocytes (%) (Auto) 14.7 % Eosinophils (%) (Auto) 1.7 % Basophils (%) (Auto) 0.6 % Neutrophils # (Auto) 2.2 TH/MM3 Lymphocytes # (Auto) 1.0 TH/MM3 Monocytes # (Auto) 0.6 TH/MM3 Eosinophils # (Auto) 0.1 TH/MM3 Basophils # (Auto) 0.0 TH/MM3 CBC Comment DIFF FINAL Differential Comment Blood Urea Nitrogen 43 MG/DL Creatinine 2.53 MG/DL Random Glucose 96 MG/DL Calcium Level 9.0 MG/DL Sodium Level 140 MEQ/L Potassium Level 3.7 MEQ/L Chloride Level 106 MEQ/L Carbon Dioxide Level 24.7 MEQ/L Anion Gap 9 MEQ/L Estimat Glomerular Filtration Rate 19 ML/MIN Assessment and Plan Problem List: (1) CHF (congestive heart failure) ICD Codes: I50.9 - Heart failure, unspecified Status: Acute (2) Chronic kidney disease ICD Codes: N18.9 - Chronic kidney disease, unspecified (3) CAD (coronary artery disease) ICD Codes: I25.10 - Atherosclerotic heart disease of [place] coronary artery without angina pectoris Assessment and Plan 1) Acute on chronic CHF Echo showing decreased EF, previously normal EF Cardiac cath showing patent grafts, no lesions for intervention RHC showing high left sided filling pressures Will need to try to keep diuresing Will have to watch creatinine, but will have to allow permissive azotemia while diuresing May need to have nephrology involved, will see 2) Rising creatinine May need to allow permissive azotemia Bumex decreased HCTZ stopped Losartan stopped 3) CAD No lesions for intervention, con't medical management Con't ASA/Plavix 4) Possible intrinsic lung disease by C Pulmonology consulted Problem Qualifiers (1) CHF (congestive heart failure): Qualified Codes: I50.23 - Acute on chronic systolic (congestive) heart failure Shravan Muniz DO Sep 15, 2017 12:43
--- NOTE | 2017-09-15 19:27 | HHI.PR ---
Subjective Remarks Patient is status post heart catheter this morning. Shortness breath she feels has not improved. Pulmonary hypertension is present on that exam suggesting possible sick lung disease. Objective Vital Signs Date Time Temp Pulse Resp B/P (MAP) Pulse Ox O2 Delivery O2 Flow Rate FiO2 09/15/17 18:09 97 09/15/17 17:00 96 09/15/17 16:01 94 09/15/17 15:00 96.5 94 19 153/71 (98) 98 09/15/17 15:00 92 09/15/17 14:11 92 09/15/17 13:00 92 09/15/17 12:00 90 09/15/17 11:00 96.4 92 19 138/67 (90) 96 09/15/17 11:00 92 09/15/17 08:00 88 09/15/17 07:55 93 09/15/17 07:38 96.4 90 20 145/70 (95) 96 09/15/17 07:00 91 09/15/17 06:00 88 09/15/17 05:00 90 09/15/17 04:00 93 09/15/17 03:20 96.3 87 18 130/89 (103) 98 09/15/17 03:00 86 09/15/17 02:00 86 09/15/17 01:00 92 09/15/17 00:00 92 09/14/17 23:10 95.6 96 18 128/60 (82) 98 09/14/17 23:00 95 09/14/17 22:00 97 09/14/17 21:00 94 09/14/17 20:59 96 Nasal Cannula 09/14/17 20:30 95.5 94 20 145/66 (92) 97 09/14/17 20:00 94 I/O 09/14/17 09/14/17 09/14/17 09/15/17 09/15/17 09/15/17 07:00 15:00 23:00 07:00 15:00 23:00 Intake Total 480 ml 820 ml 730 ml 480 ml Output Total 500 ml 500 ml 750 ml 500 ml Balance -20 ml 320 ml -20 ml -20 ml Intake Oral 480 ml 720 ml 480 ml 480 ml IV Total 100 ml 250 ml Output Urine Total 500 ml 500 ml 750 ml 500 ml # Bowel Movements 0 0 Result Diagram: 09/15/1733809/15/17338 Objective Remarks GENERAL: NAD, A&Ox3 HEAD: Normocephalic. NECK: Supple, trachea midline. No lymphadenopathy. EYES: No scleral icterus. No injection or drainage. CARDIOVASCULAR: Regular rate and rhythm without murmurs, gallops, or rubs. RESPIRATORY: Breath sounds equal bilaterally. No accessory muscle use. GASTROINTESTINAL: Abdomen soft, non-tender, nondistended. MUSCULOSKELETAL: No cyanosis, or edema. SKIN: Warm and dry. NEURO: No focal neurological deficitis. A/P Problem List: (1) Insulin dependent diabetes mellitus ICD Code: E11.9 - Type 2 diabetes mellitus without complications; Z79.4 - snf (current) use of insulin (2) CAD (coronary artery disease) ICD Code: I25.10 - Atherosclerotic heart disease of [place] coronary artery without angina pectoris (3) CHF (congestive heart failure) ICD Code: I50.9 - Heart failure, unspecified Status: Acute (4) Pneumonia ICD Code: J18.9 - Pneumonia, unspecified organism Status: Acute (5) Chronic kidney disease ICD Code: N18.9 - Chronic kidney disease, unspecified Assessment and Plan 71-year-old female admitted secondary to CHF exacerbation CHF with exacerbation Cardiomyopathy This condition may be compounded by patient's hypertension and possible intrinsic lung disease Cardiology following Continue diuresis at lower dosing secondary to worsening renal function Continue oxygen supplementation Baseline ejection fraction is approximately 25% Pneumonia Possible intrinsic lung disease Pulmonary hypertension Pulmonology has been consulted Continue oxygen supplementation Continue Rocephin Continue azithromycin Follow sputum cultures Chest pain/CAD Resolved Negative cardiac workup No need for stents and cardiac catheter. Insulin-dependent diabetes mellitus Sliding scale insulin as patient nothing by mouth Monitor blood glucose Diabetic diet Chronic kidney disease Follow renal function Diuretics decreased Avoid nephrotoxins Losartan and hydrochlorothiazide have been stopped CAD/PVD/HLD Continue aspirin and Plavix UA concerning for UTI Continue antibiotics Follow urine culture DVT prophylaxis Heparin Problem Qualifiers (1) CHF (congestive heart failure): Qualified Codes: I50.23 - Acute on chronic systolic (congestive) heart failure Bernard Estrada MD Sep 15, 2017 19:27
[2017-09-15] MEDS: cefTRIAXone INJ 1,000 MG in SODIUM CHLORIDE 0.9% INJ 100 ML IV SCH (20:17)
[2017-09-15] MEDS: guaiFENesin E.R. 600 MG TAB PO SCH (20:29)
[2017-09-15] MEDS: MAGNESIUM HYDROXIDE SUSP 30 ML CUP PO PRN (20:29)
[2017-09-15] MEDS: AZITHROMYCIN INJ 250 MG in SODIUM CHLOR 0.9% 250 ML INJ 250 ML IV SCH (21:27)
[2017-09-15] MEDS: RESP: ALBUTEROL 2.5 MG/3 ML NEB (PRN) NEB (21:35)
[2017-09-16] VITALS (30 sets, daily range): BP systolic 101–145; BP diastolic 57–68; PULSE 80–97; RESP 16–19; TEMP 96.9–97.6; O2SAT 94–100
[2017-09-16 04:16] LABS: AUTOMATED NEUTROPHIL # 3.5 TH/MM3 (1.8-7.7); BASOPHIL % 0.3 % (0.0-2.0); HEMATOCRIT 31.7 % (35.0-46.0); HEMOGLOBIN 10.3 GM/DL (11.6-15.3); LYMPH % 12.7 % (9.0-44.0); LYMPHOCYTE # 0.6 TH/MM3 (1.0-4.8); MEAN CELL VOLUME 87.3 FL (80.0-100.0); MEAN CORPUSCULAR HEMOGLOBIN 28.3 PG (27.0-34.0); MEAN CORPUSCULAR HGB CONC 32.4 % (32.0-36.0); MEAN PLATELET VOLUME 8.9 FL (7.0-11.0); MONO % 8.5 % (0.0-8.0); MONOCYTE # 0.4 TH/MM3 (0-0.9); NEUT % 78.5 % (16.0-70.0); PLATELET COUNT 272 TH/MM3 (150-450); RED BLOOD COUNT 3.63 MIL/MM3 (4.00-5.30); RED CELL DISTRIBUTION WIDTH 18.5 % (11.6-17.2); WHITE BLOOD COUNT 4.5 TH/MM3 (4.0-11.0)
[2017-09-16 04:36] LABS: ALBUMIN 2.9 GM/DL (3.4-5.0); ALKALINE PHOSPHATASE 154 U/L (45-117); ALT (GPT) 17 U/L (10-53); AST (GOT) 42 U/L (15-37); BLOOD UREA NITROGEN 47 MG/DL (7-18); CALCIUM 8.7 MG/DL (8.5-10.1); CHLORIDE 105 MEQ/L (98-107); CREATININE 2.58 MG/DL (0.50-1.00); GLOMERULAR FILTRATION RATE 18 ML/MIN (>89); GLUCOSE,RANDOM 227 MG/DL (74-106); SODIUM (NA) 139 MEQ/L (136-145); TOTAL BILIRUBIN ADULT 0.4 MG/DL (0.2-1.0); TOTAL PROTEIN 7.6 GM/DL (6.4-8.2)
[2017-09-16] MEDS: RESP: ALBUTEROL 2.5 MG/IPRATROPIUM 0.5 MG NEB (PRN) NEB ×4 (06:28→20:32)
--- NOTE | 2017-09-16 07:16 | MB ---
cc: JACOB MCNEILL DATE OF CONSULTATION 09/15/[address] Bernard Estrada REASON FOR CONSULTATION Exacerbation of shortness of breath. ILLNESSES Ms. Sanchez is a 72-year-old female with a history of coronary artery disease, status post CABG and congestive heart failure. She has been having worsening of shortness of breath. She says that for the last one year she has been having shortness of breath. She has been seeing her primary care physician very frequently, sometimes three times a week. She was being given diuretics and other IV medications. The patient was getting worse. She went to see history professor, Dr. Muniz, was found to be in acute shortness of breath and was sent to the emergency room. She was on found to be in acute congestive heart failure. Echocardiogram shows her EF is 25-30% and cardiac cath showed patent graft and increased right-sided pressures. She feels her breathing is better. She has cough and congestion and complains of some phlegm, has intermittent wheezing. PAST MEDICAL HISTORY 1. Coronary artery disease, status post CABG with recent cardiac stent placement. 2. Diabetes mellitus. 3. Chronic kidney disease. 4. Peripheral arterial disease. 5. Peripheral stent placed. MEDICATIONS She is currently taking - 1. Albuterol nebulizer treatment. 1. Bumex 1 mg per day. 2. Aspirin 81 mg. 3. Plavix 75 mg daily. 4. Spiriva once a day. 5. Loratadine 5 mg once per day. 7. Rocephin 1 gram a day. 8. She is on insulin. ALLERGIES SULFA. TYLENOL. CODEINE. LEVAQUIN. METFORMIN. POTASSIUM. SODIUM IODIDE. PSEUDOEPHEDRINE. SULFAMETHOXAZOLE. SOCIAL HISTORY She is living with significant other. She has been before and was for 20-some years. She worked in the [employer] and worked places where she was exposed to a lot of smoke. She has remote history of smoking. FAMILY HISTORY She has grown children. REVIEW OF SYSTEMS She walks only short distance, has cough and congestion. No DVT or embolism. No seizure, stroke or epilepsy. No malignancy. PHYSICAL EXAMINATION GENERAL: An elderly female, short of breath. VITAL SIGNS: Blood pressure 153/71, heart rate 94, respirations 20, temperature 96.5. HEENT EXAMINATION: Pupils are equal and reactive to light. Oral mucosa and nasal mucosa normal. NECK: JVP not raised. CHEST: She has scattered bibasilar rales, wheezes. CV: S1 and S2 normal. ABDOMEN: Benign. EXTREMITIES: 1+ pedal edema. 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 No focal deficit. LAB EVALUATION WBC count is 3.8, hemoglobin 9.8, hematocrit 30.3, MCV 86, platelet count 249. Sodium 140, potassium 3.7, chloride 105, CO2 24, BUN 43, creatinine 2.53. INR is 1.1. Her chest x-ray shows small bilateral pleural effusion, bibasilar atelectasis. IMPRESSION 1. Worsening shortness of breath, likely from her decompensated congestive heart failure. 2. Cardiomyopathy. 3. Underlying exacerbation of COPD. She was exposed to second hand smoke, previous history of smoking. 4. Recurrent bronchitis. 5. Diabetes mellitus. 6. Chronic kidney disease. PLAN We will continue present antibiotic, give her aerosol treatment. Also will get a blood gas, also will check her oxygen saturation after ambulation, check a pulmonary function study. In the meantime she is being diuresed and monitor her electrolytes. We will give her Mucinex twice a day. Further treatment will depend on her course in the hospital. Thank you Dr. Estrada for this consultation. Jacob Mcneill MD ADA/SSB /7:53 PM /6:42 AM [place]
[2017-09-16] MEDS: TIOTROPIUM BROMIDE 18 MCG INH INH SCH (09:00)
[2017-09-16] MEDS: INSULIN ASPART SUPPLEMENTAL SCALE SQ SCH ×4 (09:17→21:00)
[2017-09-16] MEDS: BUMETANIDE 1 MG TAB PO SCH (09:18)
[2017-09-16] MEDS: SODIUM CHLORIDE 0.9% FLUSH 10 ML FLUSH IV FLUSH SCH ×2 (09:18→21:17)
[2017-09-16] MEDS: LORATADINE 10 MG TAB PO SCH (09:18)
[2017-09-16] MEDS: ASPIRIN 81 MG CHEW TAB CHEW SCH (09:18)
[2017-09-16] MEDS: CLOPIDOGREL 75 MG TAB PO SCH (09:18)
[2017-09-16] MEDS: guaiFENesin E.R. 600 MG TAB PO SCH ×2 (09:18→21:18)
--- NOTE | 2017-09-16 10:05 | HHI.PR ---
Subjective Remarks Some improvement in breathing. Elevated right heart pressures on heart cath. Pulmonary evaluation ongoing to determine interstitial lung disease vs. pulmonary HTN. Objective Vital Signs Date Time Temp Pulse Resp B/P (MAP) Pulse Ox O2 Delivery O2 Flow Rate FiO2 09/16/17 08:14 97.5 92 19 145/65 (91) 94 09/16/17 06:00 89 09/16/17 05:00 87 09/16/17 04:00 92 09/16/17 03:25 Nasal Cannula 2.00 09/16/17 03:20 97.1 92 18 141/67 (91) 100 09/16/17 03:20 100 Nasal Cannula 3.00 09/16/17 03:00 94 09/16/17 02:00 94 09/16/17 01:00 92 09/16/17 00:00 97 09/15/17 23:15 93 Nasal Cannula 3.00 09/15/17 23:10 91 Nasal Cannula 2.00 09/15/17 23:10 97.0 94 18 128/60 (82) 93 09/15/17 23:00 89 09/15/17 22:00 95 09/15/17 21:20 93 Nasal Cannula 2.00 09/15/17 21:00 96 09/15/17 20:20 95 Nasal Cannula 2.00 09/15/17 20:20 97.0 99 20 146/65 (92) 95 09/15/17 20:00 98 09/15/17 19:00 98 09/15/17 18:09 97 09/15/17 17:00 96 09/15/17 16:01 94 09/15/17 15:00 96.5 94 19 153/71 (98) 98 09/15/17 15:00 92 09/15/17 14:11 92 09/15/17 13:00 92 09/15/17 12:00 90 09/15/17 11:00 96.4 92 19 138/67 (90) 96 09/15/17 11:00 92 I/O 09/15/17 09/15/17 09/15/17 09/16/17 09/16/17 09/16/17 07:00 15:00 23:00 07:00 15:00 23:00 Intake Total 730 ml 830 ml 720 ml Output Total 750 ml 500 ml 500 ml Balance -20 ml 330 ml 220 ml Intake Oral 480 ml 480 ml 720 ml IV Total 250 ml 350 ml Output Urine Total 750 ml 500 ml 500 ml # Voids 1 # Bowel Movements 0 2 Result Diagram: 09/16/1731409/16/17314 Objective Remarks GENERAL: NAD, A&Ox3 HEAD: Normocephalic. NECK: Supple, trachea midline. No lymphadenopathy. EYES: No scleral icterus. No injection or drainage. CARDIOVASCULAR: Regular rate and rhythm without murmurs, gallops, or rubs. RESPIRATORY: Breath sounds equal bilaterally. No accessory muscle use. GASTROINTESTINAL: Abdomen soft, non-tender, nondistended. MUSCULOSKELETAL: No cyanosis, or edema. SKIN: Warm and dry. NEURO: No focal neurological deficitis. 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 Categorization of pulmonary htn vs. interstitial lung disease, then treatments will be adjusted accordingly. Labs reviewed. No acute changes. Continue to follow labs. Labs ordered for further monitoring. CHF with exacerbation Cardiomyopathy This condition may be compounded by patient's hypertension and possible intrinsic lung disease Cardiology following Continue diuresis at lower dosing secondary to worsening renal function Continue oxygen supplementation Baseline ejection fraction is approximately 25% Pneumonia Possible intrinsic lung disease Pulmonary hypertension Pulmonology has been consulted Continue oxygen supplementation Continue Rocephin Continue azithromycin Follow sputum cultures Chest pain/CAD Resolved Negative cardiac workup No need for stents and cardiac catheter. Insulin-dependent diabetes mellitus Sliding scale insulin as patient nothing by mouth Monitor blood glucose Diabetic diet Chronic kidney disease Follow renal function Diuretics decreased Avoid nephrotoxins Losartan and hydrochlorothiazide have been stopped CAD/PVD/HLD Continue aspirin and Plavix UA concerning for UTI Continue antibiotics Follow urine culture DVT prophylaxis Heparin Problem Qualifiers (1) CHF (congestive heart failure): Qualified Codes: I50.23 - Acute on chronic systolic (congestive) heart failure Bernard Estrada MD Sep 16, 2017 10:05
--- NOTE | 2017-09-16 11:28 | PD.CARD.PN ---
Subjective Subjective Remarks SOB somewhat better No chest pain Objective Medications Current Medications Medications (Trade) Dose Ordered Sig/Briana Route Start Time Stop Time Status Last Admin (NS Flush) 2 ml UNSCH PRN IV FLUSH 09/09/17 22:00 (NS Flush) 2 ml BID IV FLUSH 09/10/17 09:00 09/16/17 09:18 (Tylenol) 650 mg Q4H PRN PO 09/09/17 22:00 09/14/17 23:25 (Zofran Inj) 4 mg Q6H PRN IVP 09/09/17 22:00 (Narcan Inj) 0.4 mg UNSCH PRN IV PUSH 09/09/17 22:00 (Milk Of Magnesia Liq) 30 ml Q12H PRN PO 09/09/17 22:00 09/15/17 20:29 (Senokot) 17.2 mg Q12H PRN PO 09/09/17 22:00 (Dulcolax Supp) 10 mg DAILY PRN RECTAL 09/09/17 22:00 (Lactulose Liq) 30 ml DAILY PRN PO 09/09/17 22:00 Ceftriaxone Sodium 1000 mg/ Sodium Chloride 100 ml @ 200 mls/hr Q24H IV 09/10/17 21:00 09/15/17 20:17 Azithromycin 250 mg/Sodium Chloride 250 ml @ 250 mls/hr Q24H IV 09/10/17 22:00 09/15/17 21:27 (D50w (Vial) Inj) 50 ml UNSCH PRN IV PUSH 09/09/17 22:15 (Glucagon Inj) 1 mg UNSCH PRN OTHER 09/09/17 22:15 (NovoLOG SUPPLEMENTAL SCALE) 1 ACHS SLIDING SCALE SQ 09/10/17 08:00 09/16/17 09:17 (Duoneb Neb) 1 ampule Q4HR NEB PRN NEB 09/10/17 02:00 09/16/17 06:28 (Aspirin Chew) 81 mg DAILY CHEW 09/11/17 09:00 09/16/17 09:18 (Plavix) 75 mg DAILY PO 09/11/17 09:00 09/16/17 09:18 (Spiriva Inh) 18 mcg DAILY INH 09/11/17 09:00 09/14/17 08:24 (Claritin) 5 mg DAILY PO 09/11/17:00 09/16/17 09:18 (Pill Splitter) 1 ea UNSCH PRN OTHER 09/10/17 18:00 (Bumetanide) 1 mg DAILY PO 09/13/17 09:00 09/16/17 09:18 (Albuterol Neb) 2.5 mg Q6HR NEB PRN NEB 09/15/17 19:30 09/15/17 21:35 (Mucinex Er) 600 mg BID PO 09/15/17 21:00 09/16/17 09:18 Vital Signs / I&O Vital Signs Date Time Temp Pulse Resp B/P (MAP) Pulse Ox O2 Delivery O2 Flow Rate FiO2 09/16/17 11:17 97 Nasal Cannula 2.00 09/16/17 11:05 97.3 82 19 101/57 (72) 97 09/16/17 08:15 94 Nasal Cannula 2.00 09/16/17 08:14 97.5 92 19 145/65 (91) 94 09/16/17 06:00 89 09/16/17 05:00 87 09/16/17 04:00 92 09/16/17 03:25 Nasal Cannula 2.00 09/16/17 03:20 97.1 92 18 141/67 (91) 100 09/16/17 03:20 100 Nasal Cannula 3.00 09/16/17 03:00 94 09/16/17 02:00 94 09/16/17 01:00 92 09/16/17 00:00 97 09/15/17 23:15 93 Nasal Cannula 3.00 09/15/17 23:10 91 Nasal Cannula 2.00 09/15/17 23:10 97.0 94 18 128/60 (82) 93 09/15/17 23:00 89 09/15/17 22:00 95 09/15/17 21:20 93 Nasal Cannula 2.00 09/15/17 21:00 96 09/15/17 20:20 95 Nasal Cannula 2.00 09/15/17 20:20 97.0 99 20 146/65 (92) 95 09/15/17 20:00 98 09/15/17 19:00 98 09/15/17 18:09 97 09/15/17 17:00 96 09/15/17 16:01 94 09/15/17 15:00 96.5 94 19 153/71 (98) 98 09/15/17 15:00 92 09/15/17 14:11 92 09/15/17 13:00 92 09/15/17 12:00 90 I/O 09/15/17 09/15/17 09/15/17 09/16/17 09/16/17 09/16/17 07:00 15:00 23:00 07:00 15:00 23:00 Intake Total 730 ml 830 ml 720 ml Output Total 750 ml 500 ml 500 ml Balance -20 ml 330 ml 220 ml Intake Oral 480 ml 480 ml 720 ml IV Total 250 ml 350 ml Output Urine Total 750 ml 500 ml 500 ml # Voids 1 # Bowel Movements 0 2 Physical Exam GENERAL: NAD, AAOx3 SKIN: Warm and dry. HEAD: Atraumatic. Normocephalic. EYES: Pupils equal and round. No scleral icterus. No injection or drainage. ENT: No nasal bleeding or discharge. Mucous membranes pink and moist. NECK: Trachea midline. No JVD. CARDIOVASCULAR: Regular rate and rhythm. RESPIRATORY: No accessory muscle use. Decreased breath sounds bilaterally GASTROINTESTINAL: Abdomen soft, non-tender, nondistended. Hepatic and splenic margins not palpable. MUSCULOSKELETAL: Extremities without clubbing, cyanosis, or edema. No obvious deformities. Right femoral no hematoma, distal pulses intact NEUROLOGICAL: Awake and alert. No obvious cranial nerve deficits. Motor grossly within normal limits. Five out of 5 muscle strength in the arms and legs. Normal speech. PSYCHIATRIC: Appropriate mood and affect; insight and judgment normal. Laboratory Laboratory Tests Test 09/15/17 21:53 09/16/17 03:15 Blood Gas Puncture Site LT RADIAL Blood Gas Patient Temperature 98.6 Blood Gas HCO3 17 mmol/L Blood Gas Base Excess -7.1 mmol/L Blood Gas Oxygen Saturation 86 % Arterial Blood pH 7.36 Arterial Blood Partial Pressure CO2 31 mmHg Arterial Blood Partial Pressure O2 60 mmHg Arterial Blood Oxygen Content 11.7 Vol % Arterial Blood Carboxyhemoglobin 1.4 % Arterial Blood Methemoglobin 1.1 % Blood Gas Hemoglobin 9.7 G/DL Oxygen Delivery Device ROOM AIR Blood Gas Inspired Oxygen 21 % White Blood Count 4.5 TH/MM3 Red Blood Count 3.63 MIL/MM3 Hemoglobin 10.3 GM/DL Hematocrit 31.7 % Mean Corpuscular Volume 87.3 FL Mean Corpuscular Hemoglobin 28.3 PG Mean Corpuscular Hemoglobin Concent 32.4 % Red Cell Distribution Width 18.5 % Platelet Count 272 TH/MM3 Mean Platelet Volume 8.9 FL Neutrophils (%) (Auto) 78.5 % Lymphocytes (%) (Auto) 12.7 % Monocytes (%) (Auto) 8.5 % Eosinophils (%) (Auto) 0.0 % Basophils (%) (Auto) 0.3 % Neutrophils # (Auto) 3.5 TH/MM3 Lymphocytes # (Auto) 0.6 TH/MM3 Monocytes # (Auto) 0.4 TH/MM3 Eosinophils # (Auto) 0.0 TH/MM3 Basophils # (Auto) 0.0 TH/MM3 CBC Comment DIFF FINAL Differential Comment Blood Urea Nitrogen 47 MG/DL Creatinine 2.58 MG/DL Random Glucose 227 MG/DL Total Protein 7.6 GM/DL Albumin 2.9 GM/DL Calcium Level 8.7 MG/DL Alkaline Phosphatase 154 U/L Aspartate Amino Transf (AST/SGOT) 42 U/L Alanine Aminotransferase (ALT/SGPT) 17 U/L Total Bilirubin 0.4 MG/DL Sodium Level 139 MEQ/L Potassium Level 4.0 MEQ/L Chloride Level 105 MEQ/L Carbon Dioxide Level 26.0 MEQ/L Anion Gap 8 MEQ/L Estimat Glomerular Filtration Rate 18 ML/MIN Assessment and Plan Problem List: (1) CHF (congestive heart failure) ICD Codes: I50.9 - Heart failure, unspecified Status: Acute (2) Chronic kidney disease ICD Codes: N18.9 - Chronic kidney disease, unspecified (3) CAD (coronary artery disease) ICD Codes: I25.10 - Atherosclerotic heart disease of [place] coronary artery without angina pectoris Assessment and Plan 1) Acute on chronic CHF Echo showing decreased EF, previously normal EF Cardiac cath showing patent grafts, no lesions for intervention RHC showing high left sided filling pressures Will need to try to keep diuresing, needs to increase amount diuresed, Bumex BID Will have to watch creatinine, but will have to allow permissive azotemia while diuresing May need to have nephrology involved, will see 2) Rising creatinine May need to allow permissive azotemia Bumex BID HCTZ stopped Losartan stopped 3) CAD No lesions for intervention, con't medical management Con't ASA/Plavix 4) Possible intrinsic lung disease by RHC Pulmonology consulted Problem Qualifiers (1) CHF (congestive heart failure): Qualified Codes: I50.23 - Acute on chronic systolic (congestive) heart failure Shravan Muniz DO Sep 16, 2017 11:27
--- NOTE | 2017-09-16 20:00 | HHI.PR ---
Subjective Remarks 71 YOWF with COPD,CAD,CHF. decreased EF Was feeling much better but became sob with walking ABG showes hypoxia No CP Objective Vital Signs Vital Signs Date Time Temp Pulse Resp B/P (MAP) Pulse Ox O2 Delivery O2 Flow Rate FiO2 09/16/17 18:00 84 09/16/17 17:29 85 09/16/17 16:25 86 09/16/17 15:00 99 Nasal Cannula 2.00 09/16/17 15:00 93 09/16/17 15:00 97.6 86 17 109/59 (76) 99 09/16/17 14:00 80 09/16/17 13:00 88 09/16/17 12:00 85 09/16/17 11:21 98 Nasal Cannula 2.00 09/16/17 11:17 97 Nasal Cannula 2.00 09/16/17 11:05 97.3 82 19 101/57 (72) 97 09/16/17 11:00 83 09/16/17 10:00 88 09/16/17 09:00 88 09/16/17 08:15 94 Nasal Cannula 2.00 09/16/17 08:14 97.5 92 19 145/65 (91) 94 09/16/17 08:00 90 09/16/17 07:00 85 09/16/17 06:00 89 09/16/17 05:00 87 09/16/17 04:00 92 09/16/17 03:25 Nasal Cannula 2.00 09/16/17 03:20 97.1 92 18 141/67 (91) 100 09/16/17 03:20 100 Nasal Cannula 3.00 09/16/17 03:00 94 09/16/17 02:00 94 09/16/17 01:00 92 09/16/17 00:00 97 09/15/17 23:15 93 Nasal Cannula 3.00 09/15/17 23:10 91 Nasal Cannula 2.00 09/15/17 23:10 97.0 94 18 128/60 (82) 93 09/15/17 23:00 89 09/15/17 22:00 95 09/15/17 21:20 93 Nasal Cannula 2.00 09/15/17 21:00 96 09/15/17 20:20 95 Nasal Cannula 2.00 09/15/17 20:20 97.0 99 20 146/65 (92) 95 09/15/17 20:00 98 I/O 09/15/17 09/15/17 09/15/17 09/16/17 09/16/17 09/16/17 07:00 15:00 23:00 07:00 15:00 23:00 Intake Total 730 ml 830 ml 720 ml 960 ml Output Total 750 ml 500 ml 500 ml 650 ml Balance -20 ml 330 ml 220 ml 310 ml Intake Oral 480 ml 480 ml 720 ml 960 ml IV Total 250 ml 350 ml Output Urine Total 750 ml 500 ml 500 ml 650 ml # Voids 1 # Bowel Movements 0 2 Result Diagram: 09/16/1731409/16/17314 Objective Remarks GENERAL: MBMN WF, mild sob SKIN: Warm and dry. HEAD: Normocephalic. EYES: No scleral icterus. No injection or drainage. NECK: Supple, trachea midline. No JVD or lymphadenopathy. CARDIOVASCULAR: Regular rate and rhythm without murmurs, gallops, or rubs. RESPIRATORY: Breath sounds equal bilaterally. No accessory muscle use. GASTROINTESTINAL: Abdomen soft, non-tender, nondistended. MUSCULOSKELETAL: No cyanosis, or edema. BACK: Nontender without obvious deformity. No CVA tenderness. A/P Assessment and Plan COPD Hypoxia CHF CAD Decreased EF Anxiety PLAN: Aerosol nebs Check PFT Diurease Monitor lytes Supplement 02 Nilesh Rossi MD Sep 16, 2017 20:00
[2017-09-16] MEDS ORDERED: BUMETANIDE 1 MG TAB PO SCH (21:00)
[2017-09-16] MEDS: cefTRIAXone INJ 1,000 MG in SODIUM CHLORIDE 0.9% INJ 100 ML IV SCH (21:19)
[2017-09-17] VITALS (32 sets, daily range): BP systolic 126–146; BP diastolic 43–114; PULSE 78–90; RESP 16–18; TEMP 96.4–97.7; O2SAT 95–100
[2017-09-17] MEDS: RESP: ALBUTEROL 2.5 MG/IPRATROPIUM 0.5 MG NEB (PRN) NEB ×3 (00:15→23:58)
[2017-09-17] MEDS: AZITHROMYCIN INJ 250 MG in SODIUM CHLOR 0.9% 250 ML INJ 250 ML IV SCH ×2 (00:16→22:32)
[2017-09-17 06:33] LABS: ALBUMIN 2.6 GM/DL (3.4-5.0); ALKALINE PHOSPHATASE 131 U/L (45-117); ALT (GPT) 17 U/L (10-53); AST (GOT) 27 U/L (15-37); BICARBONATE 18.7 MEQ/L (21.0-32.0); BLOOD UREA NITROGEN 53 MG/DL (7-18); CALCIUM 8.7 MG/DL (8.5-10.1); CHLORIDE 103 MEQ/L (98-107); CREATININE 3.28 MG/DL (0.50-1.00); GLOMERULAR FILTRATION RATE 14 ML/MIN (>89); GLUCOSE,RANDOM 108 MG/DL (74-106); SODIUM (NA) 137 MEQ/L (136-145); TOTAL BILIRUBIN ADULT 0.3 MG/DL (0.2-1.0); TOTAL PROTEIN 6.6 GM/DL (6.4-8.2)
[2017-09-17 07:01] LABS: AUTOMATED NEUTROPHIL # 3.8 TH/MM3 (1.8-7.7); BASOPHIL % 0.7 % (0.0-2.0); EOSINOPHIL # 0.1 TH/MM3 (0-0.4); EOSINOPHIL % 0.8 % (0.0-4.0); HEMATOCRIT 31.6 % (35.0-46.0); HEMOGLOBIN 10.2 GM/DL (11.6-15.3); LYMPH % 24.9 % (9.0-44.0); LYMPHOCYTE # 1.5 TH/MM3 (1.0-4.8); MEAN CELL VOLUME 88.3 FL (80.0-100.0); MEAN CORPUSCULAR HEMOGLOBIN 28.5 PG (27.0-34.0); MEAN CORPUSCULAR HGB CONC 32.2 % (32.0-36.0); MONOCYTE # 0.7 TH/MM3 (0-0.9); NEUT % 61.6 % (16.0-70.0); PLATELET COUNT 257 TH/MM3 (150-450); RED BLOOD COUNT 3.57 MIL/MM3 (4.00-5.30); RED CELL DISTRIBUTION WIDTH 18.2 % (11.6-17.2); WHITE BLOOD COUNT 6.1 TH/MM3 (4.0-11.0)
[2017-09-17] MEDS: INSULIN ASPART SUPPLEMENTAL SCALE SQ SCH ×4 (08:00→22:32)
[2017-09-17] MEDS: LORATADINE 10 MG TAB PO SCH (09:10)
[2017-09-17] MEDS: BUMETANIDE 1 MG TAB PO SCH (09:10)
[2017-09-17] MEDS: ASPIRIN 81 MG CHEW TAB CHEW SCH (09:10)
[2017-09-17] MEDS: guaiFENesin E.R. 600 MG TAB PO SCH ×2 (09:10→22:32)
[2017-09-17] MEDS: CLOPIDOGREL 75 MG TAB PO SCH (09:10)
[2017-09-17] MEDS: TIOTROPIUM BROMIDE 18 MCG INH INH SCH (09:11)
[2017-09-17] MEDS: SODIUM CHLORIDE 0.9% FLUSH 10 ML FLUSH IV FLUSH SCH ×2 (09:11→22:33)
--- NOTE | 2017-09-17 10:53 | HHI.PR ---
Subjective Remarks Mild improvement in breathing continues. She has a significant elevation in her creatinine which likely stabilizes dehydration and for [place] of benefit from diuresis. Blood pressures have remained mildly elevated. Objective Vital Signs Date Time Temp Pulse Resp B/P (MAP) Pulse Ox O2 Delivery O2 Flow Rate FiO2 09/17/17 10:00 89 09/17/17 09:00 85 09/17/17 08:33 98 2.00 09/17/17 08:00 82 09/17/17 07:13 97.4 87 16 143/69 (93) 97 09/17/17 07:13 98 Nasal Cannula 2.00 09/17/17 07:00 85 09/17/17 06:25 96.6 90 17 141/43 (75) 95 09/17/17 06:00 84 09/17/17 05:00 84 09/17/17 04:00 78 09/17/17 03:22 94 Nasal Cannula 2.00 09/17/17 03:00 86 09/17/17 02:00 88 09/17/17 01:00 85 09/17/17 00:13 95 Nasal Cannula 2.00 09/17/17 00:00 86 09/16/17 23:34 96.9 90 17 145/68 (93) 95 09/16/17 23:00 91 09/16/17 22:00 90 09/16/17 21:00 88 09/16/17 20:33 98 Nasal Cannula 2.00 09/16/17 20:20 95 Nasal Cannula 2.00 09/16/17 20:00 84 09/16/17 20:00 96.9 85 16 129/59 (82) 95 09/16/17 19:00 82 09/16/17 18:00 84 09/16/17 17:29 85 09/16/17 16:25 86 09/16/17 15:00 99 Nasal Cannula 2.00 09/16/17 15:00 93 09/16/17 15:00 97.6 86 17 109/59 (76) 99 09/16/17 14:00 80 09/16/17 13:00 88 09/16/17 12:00 85 09/16/17 11:21 98 Nasal Cannula 2.00 09/16/17 11:17 97 Nasal Cannula 2.00 09/16/17 11:05 97.3 82 19 101/57 (72) 97 09/16/17 11:00 83 I/O 09/16/17 09/16/17 09/16/17 09/17/17 09/17/17 09/17/17 07:00 15:00 23:00 07:00 15:00 23:00 Intake Total 720 ml 960 ml 480 ml Output Total 500 ml 650 ml 200 ml Balance 220 ml 310 ml 280 ml Intake Oral 720 ml 960 ml 480 ml Output Urine Total 500 ml 650 ml 200 ml # Voids 1 # Bowel Movements 2 Result Diagram: 09/17/1743709/17/17437 Objective Remarks GENERAL: NAD, A&Ox3 HEAD: Normocephalic. NECK: Supple, trachea midline. No lymphadenopathy. EYES: No scleral icterus. No injection or drainage. CARDIOVASCULAR: Regular rate and rhythm without murmurs, gallops, or rubs. RESPIRATORY: Breath sounds equal bilaterally. No accessory muscle use. GASTROINTESTINAL: Abdomen soft, non-tender, nondistended. MUSCULOSKELETAL: No cyanosis, or edema. SKIN: Warm and dry. NEURO: No focal neurological deficitis. A/P Problem List: (1) Insulin dependent diabetes mellitus ICD Code: E11.9 - Type 2 diabetes mellitus without complications; Z79.4 - halfway (current) use of insulin (2) CAD (coronary artery disease) ICD Code: I25.10 - Atherosclerotic heart disease of [place] coronary artery without angina pectoris (3) CHF (congestive heart failure) ICD Code: I50.9 - Heart failure, unspecified Status: Acute (4) Pneumonia ICD Code: J18.9 - Pneumonia, unspecified organism Status: Acute (5) Chronic kidney disease ICD Code: N18.9 - Chronic kidney disease, unspecified Assessment and Plan 71-year-old female admitted secondary to CHF exacerbation. Categorization of pulmonary htn vs. interstitial lung disease, pulmonary function testing pending. Remarkable started to treat patient's borderline hypertension, with possible benefit pulmonary hypertension is present. Labs reviewed. Creatinine elevated. Bumex decreased to once a day. Continue to follow renal function. CHF with exacerbation Cardiomyopathy This condition may be compounded by patient's hypertension and possible intrinsic lung disease Cardiology following Continue diuresis at lower dosing secondary to worsening renal function Continue oxygen supplementation Baseline ejection fraction is approximately 25% Pneumonia Possible intrinsic lung disease Pulmonary hypertension Pulmonology has been consulted Continue oxygen supplementation Continue Rocephin Continue azithromycin Follow sputum cultures Chest pain/CAD Resolved Negative cardiac workup No need for stents and cardiac catheter. Insulin-dependent diabetes mellitus Sliding scale insulin as patient nothing by mouth Monitor blood glucose Diabetic diet Chronic kidney disease Follow renal function Diuretics decreased Avoid nephrotoxins Losartan and hydrochlorothiazide have been stopped CAD/PVD/HLD Continue aspirin and Plavix UA concerning for UTI Continue antibiotics Follow urine culture DVT prophylaxis Heparin Problem Qualifiers (1) CHF (congestive heart failure): Qualified Codes: I50.23 - Acute on chronic systolic (congestive) heart failure Bernard Estrada MD Sep 17, 2017 10:53
[2017-09-17] MEDS ORDERED: VERAPAMIL HCL 40 MG TAB PO ONE (12:00)
--- NOTE | 2017-09-17 14:08 | PD.CARD.PN ---
Subjective Subjective Remarks SOB somewhat better No chest pain Objective Medications Current Medications Medications (Trade) Dose Ordered Sig/Briana Route Start Time Stop Time Status Last Admin (NS Flush) 2 ml UNSCH PRN IV FLUSH 09/09/17 22:00 (NS Flush) 2 ml BID IV FLUSH 09/10/17 09:00 09/17/17 09:11 (Tylenol) 650 mg Q4H PRN PO 09/09/17 22:00 09/14/17 23:25 (Zofran Inj) 4 mg Q6H PRN IVP 09/09/17 22:00 (Narcan Inj) 0.4 mg UNSCH PRN IV PUSH 09/09/17 22:00 (Milk Of Magnesia Liq) 30 ml Q12H PRN PO 09/09/17 22:00 09/15/17 20:29 (Senokot) 17.2 mg Q12H PRN PO 09/09/17 22:00 (Dulcolax Supp) 10 mg DAILY PRN RECTAL 09/09/17 22:00 (Lactulose Liq) 30 ml DAILY PRN PO 09/09/17 22:00 Ceftriaxone Sodium 1000 mg/ Sodium Chloride 100 ml @ 200 mls/hr Q24H IV 09/10/17 21:00 09/16/17 21:19 Azithromycin 250 mg/Sodium Chloride 250 ml @ 250 mls/hr Q24H IV 09/10/17 22:00 09/17/17 00:16 (D50w (Vial) Inj) 50 ml UNSCH PRN IV PUSH 09/09/17 22:15 (Glucagon Inj) 1 mg UNSCH PRN OTHER 09/09/17 22:15 (NovoLOG SUPPLEMENTAL SCALE) 1 ACHS SLIDING SCALE SQ 09/10/17 08:00 09/17/17 12:00 (Duoneb Neb) 1 ampule Q4HR NEB PRN NEB 09/10/17 02:00 09/17/17 00:15 (Aspirin Chew) 81 mg DAILY CHEW 09/11/17 09:00 09/17/17 09:10 (Plavix) 75 mg DAILY PO 09/11/17 09:00 09/17/17 09:10 (Spiriva Inh) 18 mcg DAILY INH 09/11/17 09:00 09/17/17 09:11 (Claritin) 5 mg DAILY PO 09/11/17 09:00 09/17/17 09:10 (Pill Splitter) 1 ea UNSCH PRN OTHER 09/10/17 18:00 (Albuterol Neb) 2.5 mg Q6HR NEB PRN NEB 09/15/17 19:30 09/15/17 21:35 (Mucinex Er) 600 mg BID PO 09/15/17 21:00 09/17/17 09:10 (Bumetanide) 1 mg DAILY PO 09/17/17 09:00 09/17/17 09:10 (Isoptin) 40 mg DAILY PO 09/18/17 09:00 Vital Signs / I&O Vital Signs Date Time Temp Pulse Resp B/P (MAP) Pulse Ox O2 Delivery O2 Flow Rate FiO2 09/17/17 14:00 83 09/17/17 13:00 82 09/17/17 12:00 81 09/17/17 11:45 97.7 82 18 132/69 (90) 100 09/17/17 11:34 98 Nasal Cannula 2.00 09/17/17 11:00 84 09/17/17 10:00 89 09/17/17 09:00 85 09/17/17 08:33 98 2.00 09/17/17 08:00 82 09/17/17 07:13 97.4 87 16 143/69 (93) 97 09/17/17 07:13 98 Nasal Cannula 2.00 09/17/17 07:00 85 09/17/17 06:25 96.6 90 17 141/43 (75) 95 09/17/17 06:00 84 09/17/17 05:00 84 09/17/17 04:00 78 09/17/17 03:22 94 Nasal Cannula 2.00 09/17/17 03:00 86 09/17/17 02:00 88 09/17/17 01:00 85 09/17/17 00:13 95 Nasal Cannula 2.00 09/17/17 00:00 86 09/16/17 23:34 96.9 90 17 145/68 (93) 95 09/16/17 23:00 91 09/16/17 22:00 90 09/16/17 21:00 88 09/16/17 20:33 98 Nasal Cannula 2.00 09/16/17 20:20 95 Nasal Cannula 2.00 09/16/17 20:00 84 09/16/17 20:00 96.9 85 16 129/59 (82) 95 09/16/17 19:00 82 09/16/17 18:00 84 09/16/17 17:29 85 09/16/17 16:25 86 09/16/17 15:00 99 Nasal Cannula 2.00 09/16/17 15:00 93 09/16/17 15:00 97.6 86 17 109/59 (76) 99 I/O 09/16/17 09/16/17 09/16/17 09/17/17 09/17/17 09/17/17 07:00 15:00 23:00 07:00 15:00 23:00 Intake Total 720 ml 960 ml 480 ml Output Total 500 ml 650 ml 200 ml Balance 220 ml 310 ml 280 ml Intake Oral 720 ml 960 ml 480 ml Output Urine Total 500 ml 650 ml 200 ml # Voids 1 # Bowel Movements 2 Physical Exam GENERAL: NAD, AAOx3 SKIN: Warm and dry. HEAD: Atraumatic. Normocephalic. EYES: Pupils equal and round. No scleral icterus. No injection or drainage. ENT: No nasal bleeding or discharge. Mucous membranes pink and moist. NECK: Trachea midline. No JVD. CARDIOVASCULAR: Regular rate and rhythm. RESPIRATORY: No accessory muscle use. Decreased breath sounds bilaterally GASTROINTESTINAL: Abdomen soft, non-tender, nondistended. Hepatic and splenic margins not palpable. MUSCULOSKELETAL: Extremities without clubbing, cyanosis, or edema. No obvious deformities. Right femoral no hematoma, distal pulses intact NEUROLOGICAL: Awake and alert. No obvious cranial nerve deficits. Motor grossly within normal limits. Five out of 5 muscle strength in the arms and legs. Normal speech. PSYCHIATRIC: Appropriate mood and affect; insight and judgment normal. Laboratory Laboratory Tests Test 09/17/17 04:38 White Blood Count 6.1 TH/MM3 Red Blood Count 3.57 MIL/MM3 Hemoglobin 10.2 GM/DL Hematocrit 31.6 % Mean Corpuscular Volume 88.3 FL Mean Corpuscular Hemoglobin 28.5 PG Mean Corpuscular Hemoglobin Concent 32.2 % Red Cell Distribution Width 18.2 % Platelet Count 257 TH/MM3 Mean Platelet Volume 9.0 FL Neutrophils (%) (Auto) 61.6 % Lymphocytes (%) (Auto) 24.9 % Monocytes (%) (Auto) 12.0 % Eosinophils (%) (Auto) 0.8 % Basophils (%) (Auto) 0.7 % Neutrophils # (Auto) 3.8 TH/MM3 Lymphocytes # (Auto) 1.5 TH/MM3 Monocytes # (Auto) 0.7 TH/MM3 Eosinophils # (Auto) 0.1 TH/MM3 Basophils # (Auto) 0.0 TH/MM3 CBC Comment DIFF FINAL Differential Comment Blood Urea Nitrogen 53 MG/DL Creatinine 3.28 MG/DL Random Glucose 108 MG/DL Total Protein 6.6 GM/DL Albumin 2.6 GM/DL Calcium Level 8.7 MG/DL Alkaline Phosphatase 131 U/L Aspartate Amino Transf (AST/SGOT) 27 U/L Alanine Aminotransferase (ALT/SGPT) 17 U/L Total Bilirubin 0.3 MG/DL Sodium Level 137 MEQ/L Potassium Level 4.3 MEQ/L Chloride Level 103 MEQ/L Carbon Dioxide Level 18.7 MEQ/L Anion Gap 15 MEQ/L Estimat Glomerular Filtration Rate 14 ML/MIN Assessment and Plan Problem List: (1) CHF (congestive heart failure) ICD Codes: I50.9 - Heart failure, unspecified Status: Acute (2) Chronic kidney disease ICD Codes: N18.9 - Chronic kidney disease, unspecified (3) CAD (coronary artery disease) ICD Codes: I25.10 - Atherosclerotic heart disease of [place] coronary artery without angina pectoris Assessment and Plan 1) Acute on chronic CHF Echo showing decreased EF, previously normal EF Cardiac cath showing patent grafts, no lesions for intervention RHC showing high left sided filling pressures Will need to try to keep diuresing, Bumex daily now Will have to watch creatinine, but will have to allow permissive azotemia while diuresing, plan to consult nephrology for help with kidney function 2) Rising creatinine May need to allow permissive azotemia Bumex daily HCTZ stopped Losartan stopped Consult nephrology 3) CAD No lesions for intervention, con't medical management Con't ASA/Plavix 4) Possible intrinsic lung disease by [facility] Pulmonology consulted Problem Qualifiers (1) CHF (congestive heart failure): Qualified Codes: I50.23 - Acute on chronic systolic (congestive) heart failure Shravan Muniz DO Sep 17, 2017 14:08
--- NOTE | 2017-09-17 17:05 | PD.CONS ---
HPI Service Nephrology Consult Requested By Dr. Muniz Reason for Consult Acute and chronic kidney disease Primary Care Physician Cate Hughes MD History of Present Illness Patient is a 71-year-old white female with history of diabetes, congestive heart failure with EF of 25-30%, coronary artery disease status post CABG, chronic kidney disease stage IV, who has been admitted with increasing shortness of breath she underwent a heart catheterization 2 days ago and creatinine is fluctuating however baseline creatinine is around 1.9 currently she is 3.2, patient has been following with Dr. Davies, but would like to switch him to see alternate physician as requested by Dr. Muniz, she states she is passing urine, denies any dysuria, she has increasing fatigue and tiredness. Review of Systems Constitutional: COMPLAINS OF: Fatigue, Weight loss, Change in appetite Respiratory: COMPLAINS OF: Cough, Shortness of breath Cardiovascular: COMPLAINS OF: Dyspnea on Exertion, Lower Extremity Edema Gastrointestinal: COMPLAINS OF: Anorexia Musculoskeletal: COMPLAINS OF: Joint pain, Muscle aches, Back pain Neurologic: COMPLAINS OF: Abnormal gait Psychiatric: COMPLAINS OF: Anxiety Past Family Social History Allergies: Coded Allergies: codeine (Unverified Allergy, Severe, SEVERE MOOD SWINGS, 03/23/17) etodolac (Unverified Allergy, Severe, Chest Pain, 03/23/17) iodine (Unverified Allergy, Severe, EDEMA, 03/23/17) metformin (Unverified Allergy, Severe, N/V, 03/23/17) potassium iodide (Unverified Allergy, Severe, EDEMA, 03/23/17) povidone-iodine (Unverified Allergy, Severe, EDEMA, 03/23/17) pseudoephedrine (Unverified Allergy, Severe, THROAT SWELLS, 03/23/17) sodium iodide (Unverified Allergy, Severe, EDEMA, 03/23/17) sodium iodide (Unverified Allergy, Severe, EDEMA, 03/23/17) Sulfa (Sulfonamide Antibiotics) (Unverified Allergy, Mild, 03/23/17) dizzy levofloxacin (Unverified Adverse Reaction, Severe, NAUSEA, VOMITING, DIZZINESS, 03/23/17) sulfamethoxazole (Unverified Adverse Reaction, Severe, NAUSEA, VOMITING, DIZZINESS, 03/23/17) trimethoprim (Unverified Adverse Reaction, Severe, NAUSEA, VOMITING, DIZZINESS, 03/23/17) Uncoded Allergies: Tylenol Sinus (Allergy, Severe, Dyspnea and Swelling, 01/11/09) Past Medical History Congestive heart failure CK D Hx of ARF prolong hospital stay last year Insulin-dependent diabetes Coronary artery disease Peripheral vascular disease Hyperlipidemia Past Surgical History Previous toe amputation left, right big toe amputation Cataract Cholecystectomy Hysterectomy CABG 3 Stent 1 Leg stent Reported Medications Reported Meds & Active Scripts Active Reported Furosemide 20 Mg Tab 10 Mg PO DAILY Augmentin 500MG/125MG (Amoxicillin/Clavulanate Potassium) 500 Mg Tab 500 Mg PO Q12H Doxycycline Hyclate 100 mg (Doxycycline Hyclate) 100 Mg Tab 100 Mg PO BID Hyzaar 50-12.5 (Losartan Potassium-Hct 50-12.5) 50 Mg/12.5 Mg Tab 1 Tab PO HS Novolog Penfill (Insulin Aspart) 100 Unit/Ml Inj 5 SC DIRECTED <150 no coverage. >150 5 units for everY increments of 50 Active Ordered Medications Current Medications Medications (Trade) Dose Ordered Sig/Briana Route Start Time Stop Time Status Last Admin (NS Flush) 2 ml UNSCH PRN IV FLUSH 09/09/17 22:00 (NS Flush) 2 ml BID IV FLUSH 09/10/17 09:00 09/17/17 09:11 (Tylenol) 650 mg Q4H PRN PO 09/09/17 22:00 09/14/17 23:25 (Zofran Inj) 4 mg Q6H PRN IVP 09/09/17 22:00 (Narcan Inj) 0.4 mg UNSCH PRN IV PUSH 09/09/17 22:00 (Milk Of Magnesia Liq) 30 ml Q12H PRN PO 09/09/17 22:00 09/15/17 20:29 (Senokot) 17.2 mg Q12H PRN PO 09/09/17 22:00 (Dulcolax Supp) 10 mg DAILY PRN RECTAL 09/09/17 22:00 (Lactulose Liq) 30 ml DAILY PRN PO 09/09/17 22:00 Ceftriaxone Sodium 1000 mg/ Sodium Chloride 100 ml @ 200 mls/hr Q24H IV 09/10/17 21:00 09/16/17 21:19 Azithromycin 250 mg/Sodium Chloride 250 ml @ 250 mls/hr Q24H IV 09/10/17 22:00 09/17/17 00:16 (D50w (Vial) Inj) 50 ml UNSCH PRN IV PUSH 09/09/17 22:15 (Glucagon Inj) 1 mg UNSCH PRN OTHER 09/09/17 22:15 (NovoLOG SUPPLEMENTAL SCALE) 1 ACHS SLIDING SCALE SQ 09/10/17 08:00 09/17/17 12:00 (Duoneb Neb) 1 ampule Q4HR NEB PRN NEB 09/10/17 02:00 09/17/17 00:15 (Aspirin Chew) 81 mg DAILY CHEW 09/11/17 09:00 09/17/17 09:10 (Plavix) 75 mg DAILY PO 09/11/17 09:00 09/17/17 09:10 (Spiriva Inh) 18 mcg DAILY INH 09/11/17 09:00 09/17/17 09:11 (Claritin) 5 mg DAILY PO 09/11/17 09:00 09/17/17 09:10 (Pill Splitter) 1 ea UNSCH PRN OTHER 09/10/17 18:00 (Albuterol Neb) 2.5 mg Q6HR NEB PRN NEB 09/15/17 19:30 09/15/17 21:35 (Mucinex Er) 600 mg BID PO 09/15/17 21:00 09/17/17 09:10 (Bumetanide) 1 mg DAILY PO 09/17/17 09:00 09/17/17 09:10 (Isoptin) 40 mg DAILY PO 09/18/17 09:00 Family History Lives with significant other Social History Remote history of smoking History of alcohol use in the past Physical Exam Vital Signs Vital Signs Date Time Temp Pulse Resp B/P (MAP) Pulse Ox O2 Delivery O2 Flow Rate FiO2 09/17/17 16:00 86 09/17/17 15:28 100 Nasal Cannula 2.00 09/17/17 15:27 97.5 86 16 126/66 (86) 100 09/17/17 15:00 85 09/17/17 14:00 83 09/17/17 13:00 82 09/17/17 12:00 81 09/17/17 11:45 97.7 82 18 132/69 (90) 100 09/17/17 11:34 98 Nasal Cannula 2.00 09/17/17 11:00 84 09/17/17 10:00 89 09/17/17 09:00 85 09/17/17 08:33 98 2.00 09/17/17 08:00 82 09/17/17 07:13 97.4 87 16 143/69 (93) 97 09/17/17 07:13 98 Nasal Cannula 2.00 09/17/17 07:00 85 09/17/17 06:25 96.6 90 17 141/43 (75) 95 09/17/17 06:00 84 09/17/17 05:00 84 09/17/17 04:00 78 09/17/17 03:22 94 Nasal Cannula 2.00 09/17/17 03:00 86 09/17/17 02:00 88 09/17/17 01:00 85 09/17/17 00:13 95 Nasal Cannula 2.00 09/17/17 00:00 86 09/16/17 23:34 96.9 90 17 145/68 (93) 95 09/16/17 23:00 91 09/16/17 22:00 90 09/16/17 21:00 88 09/16/17 20:33 98 Nasal Cannula 2.00 09/16/17 20:20 95 Nasal Cannula 2.00 09/16/17 20:00 84 09/16/17 20:00 96.9 85 16 129/59 (82) 95 09/16/17 19:00 82 09/16/17 18:00 84 09/16/17 17:29 85 Physical Exam GENERAL: Well-nourished, well-developed patient. SKIN: Warm and dry. HEAD: Normocephalic. EYES: No scleral icterus. No injection or drainage. NECK: Supple, trachea midline. No JVD or lymphadenopathy. CARDIOVASCULAR: S1 and S2 irregular 2/6 systolic murmur RESPIRATORY: Breath sounds diminished at bases GASTROINTESTINAL: Abdomen soft, non-tender, nondistended. EXTREMITIES: No cyanosis, 2+ edema. Previous toe amputation NEUROLOGICAL: Awake, alert, and oriented x 3. Non-focal. Laboratory Laboratory Tests Test 09/17/17 04:38 White Blood Count 6.1 Red Blood Count 3.57 Hemoglobin 10.2 Hematocrit 31.6 Mean Corpuscular Volume 88.3 Mean Corpuscular Hemoglobin 28.5 Mean Corpuscular Hemoglobin Concent 32.2 Red Cell Distribution Width 18.2 Platelet Count 257 Mean Platelet Volume 9.0 Neutrophils (%) (Auto) 61.6 Lymphocytes (%) (Auto) 24.9 Monocytes (%) (Auto) 12.0 Eosinophils (%) (Auto) 0.8 Basophils (%) (Auto) 0.7 Neutrophils # (Auto) 3.8 Lymphocytes # (Auto) 1.5 Monocytes # (Auto) 0.7 Eosinophils # (Auto) 0.1 Basophils # (Auto) 0.0 CBC Comment DIFF FINAL Differential Comment Blood Urea Nitrogen 53 Creatinine 3.28 Random Glucose 108 Total Protein 6.6 Albumin 2.6 Calcium Level 8.7 Alkaline Phosphatase 131 Aspartate Amino Transf (AST/SGOT) 27 Alanine Aminotransferase (ALT/SGPT) 17 Total Bilirubin 0.3 Sodium Level 137 Potassium Level 4.3 Chloride Level 103 Carbon Dioxide Level 18.7 Anion Gap 15 Estimat Glomerular Filtration Rate 14 Date/Time Source Procedure Growth Status 09/09/17 21:25 Blood Peripheral Aerobic Blood Culture - Final NO GROWTH IN 5 DAYS Complete 09/09/17 21:25 Blood Peripheral Anaerobic Blood Culture - Final NO GROWTH IN 5 DAYS Complete 09/09/17 21:50 Urine Random Urine Urine Culture - Final 50-100,000 CFU/ML MIXED GRAM POSITIVE... Complete Result Diagram: 09/17/1743709/17/17437 Imaging Last Impressions Chest X-Ray 09/09/171918 Signed Impressions: Service Date/Time: September 19:42 - CONCLUSION: Small bilateral pleural effusions. Bibasilar atelectasis and/or infiltrates. Mild cardiomegaly. Everett Matute MD Assessment and Plan Problem List: (1) Acute renal failure ICD Codes: N17.9 - Acute kidney failure, unspecified Plan: Patient has recent exposure to dye 60 cc was used during heart catheterization Patient has chronic kidney disease and acute renal failure due to fluid fluctuation possible dye-induced Or diuretic induced Agree with decreasing Bumex 1 mg daily monitor intake and output and adjust his diuretic accordingly Monitor BMP Avoid dye studies Avoid nephrotoxins Order ultrasound, check urine eosinophils, urine protein to creatinine ratio monitor intake and output (2) Chronic kidney disease ICD Codes: N18.9 - Chronic kidney disease, unspecified (3) CHF (congestive heart failure) ICD Codes: I50.9 - Heart failure, unspecified Status: Acute Plan: Cardiology following on Bumex (4) CAD (coronary artery disease) ICD Codes: I25.10 - Atherosclerotic heart disease of [place] coronary artery without angina pectoris Plan: previous CABG (5) Insulin dependent diabetes mellitus ICD Codes: E11.9 - Type 2 diabetes mellitus without complications; Z79.4 - napkin band wrapper (current) use of insulin Plan: follow BG Problem Qualifiers (1) CHF (congestive heart failure): Qualified Codes: I50.23 - Acute on chronic systolic (congestive) heart failure Ehsan Cano MD Sep 17, 2017 17:05
--- NOTE | 2017-09-17 19:21 | RADRPT ---
EXAM DATE/TIME: 09/17/2017 18:45 [place] COMPARISON: No previous studies available for comparison. INDICATIONS : Increased BUN/Creatnine. MEDICAL HISTORY : Congestive heart failure. Myocardial infarction. Hypercholesterolemia. Dentures. Dizziness. Chest crystal n. Hypertension. Dyspnea. Renal disease. Diabetes. Anxiety. SURGICAL HISTORY : CABG. Cholecystectomy. Hysterectomy. Bilateral cataract surgery. Right foot great toe amputation. ENCOUNTER: Initial ACUITY: 1 month PAIN SCORE: 2/10 LOCATION: Bilateral flank MEASUREMENTS: RIGHT KIDNEY: 11.3 x 3.5 x 5.2 cm LEFT KIDNEY: 12.4 x 3.5 x 5.1 cm FINDINGS: RIGHT KIDNEY: There is a mild increased echogenicity of the renal parenchyma. There is no evidence of hydronephrosi s. There is a 3 mm calcification in the midpole suggestive of a nonobstructing stone. LEFT KIDNEY: There is mild increased echogenicity of the renal parenchyma. There is no evidence of hydronephrosis. There is a 3 mm calcification in the lower pole suggestive of a nonobstructing stone. BLADDER: Within normal limits given the degree of distension. There is very small amount of ascites is seen in the lower abdomen. CONCLUSION: 1. No evidence of hydronephrosis. 2. There is some mild increased echogenicity of the renal parenchyma bilaterally. 3. There appears to be a 3 mm nonobstructing stone in each kidney. Gerry Jernigan MD on September 17, 2017 at 19:17 Board Certified Radiologist. This report was verified electronically.
--- NOTE | 2017-09-17 22:15 | HHI.PR ---
Subjective Remarks 71 YOWF with COPD,CAD,CHF. decreased EF Was feeling much better but became sob with walking ABG showes hypoxia No CP PFT suggestive of severe restrictve dis Objective Vital Signs Vital Signs Date Time Temp Pulse Resp B/P (MAP) Pulse Ox O2 Delivery O2 Flow Rate FiO2 09/17/17 20:17 99 Nasal Cannula 5.00 09/17/17 20:15 95 Nasal Cannula 2.00 09/17/17 20:09 96.4 85 18 135/114 (121) 95 09/17/17 18:00 87 09/17/17 17:00 84 09/17/17 16:00 86 09/17/17 15:28 100 Nasal Cannula 2.00 09/17/17 15:27 97.5 86 16 126/66 (86) 100 09/17/17 15:00 85 09/17/17 14:00 83 09/17/17 13:00 82 09/17/17 12:00 81 09/17/17 11:45 97.7 82 18 132/69 (90) 100 09/17/17 11:34 98 Nasal Cannula 2.00 09/17/17 11:00 84 09/17/17 10:00 89 09/17/17 09:00 85 09/17/17 08:33 98 2.00 09/17/17 08:00 82 09/17/17 07:13 97.4 87 16 143/69 (93) 97 09/17/17 07:13 98 Nasal Cannula 2.00 09/17/17 07:00 85 09/17/17 06:25 96.6 90 17 141/43 (75) 95 09/17/17 06:00 84 09/17/17 05:00 84 09/17/17 04:00 78 09/17/17 03:22 94 Nasal Cannula 2.00 09/17/17 03:00 86 09/17/17 02:00 88 09/17/17 01:00 85 09/17/17 00:13 95 Nasal Cannula 2.00 09/17/17 00:00 86 09/16/17 23:34 96.9 90 17 145/68 (93) 95 09/16/17 23:00 91 I/O 09/16/17 09/16/17 09/16/17 09/17/17 09/17/17 09/17/17 07:00 15:00 23:00 07:00 15:00 23:00 Intake Total 720 ml 960 ml 480 ml 840 ml Output Total 500 ml 650 ml 200 ml 300 ml Balance 220 ml 310 ml 280 ml 540 ml Intake Oral 720 ml 960 ml 480 ml 840 ml Output Urine Total 500 ml 650 ml 200 ml 300 ml # Voids 1 # Bowel Movements 2 Result Diagram: 09/17/1743709/17/17437 Objective Remarks GENERAL: MBMN WF, mild sob SKIN: Warm and dry. HEAD: Normocephalic. EYES: No scleral icterus. No injection or drainage. NECK: Supple, trachea midline. No JVD or lymphadenopathy. CARDIOVASCULAR: Regular rate and rhythm without murmurs, gallops, or rubs. RESPIRATORY: Breath sounds equal bilaterally. No accessory muscle use. GASTROINTESTINAL: Abdomen soft, non-tender, nondistended. MUSCULOSKELETAL: No cyanosis, or edema. BACK: Nontender without obvious deformity. No CVA tenderness. A/P Assessment and Plan COPD Hypoxia CHF CAD Decreased EF Anxiety PLAN: Aerosol nebs Check PFT Diurease Monitor lytes Supplement 02 Will need complete PFT with diffusion and lung volumes as out pt Nilesh Rossi MD Sep 17, 2017 22:15
[2017-09-17] MEDS: cefTRIAXone INJ 1,000 MG in SODIUM CHLORIDE 0.9% INJ 100 ML IV SCH (22:32)
[2017-09-18] VITALS (26 sets, daily range): BP systolic 121–150; BP diastolic 66–74; PULSE 81–98; RESP 16–20; TEMP 96.1–97.6; O2SAT 94–100
[2017-09-18] MEDS: RESP: ALBUTEROL 2.5 MG/IPRATROPIUM 0.5 MG NEB (PRN) NEB ×4 (03:42→20:47)
[2017-09-18 04:51] LABS: HEMATOCRIT 33.2 % (35.0-46.0); HEMOGLOBIN 10.5 GM/DL (11.6-15.3); MEAN CELL VOLUME 87.2 FL (80.0-100.0); MEAN CORPUSCULAR HEMOGLOBIN 27.5 PG (27.0-34.0); MEAN CORPUSCULAR HGB CONC 31.6 % (32.0-36.0); MEAN PLATELET VOLUME 9.2 FL (7.0-11.0); PLATELET COUNT 263 TH/MM3 (150-450); WHITE BLOOD COUNT 5.9 TH/MM3 (4.0-11.0)
[2017-09-18 05:12] LABS: BICARBONATE 23.2 MEQ/L (21.0-32.0); CALCIUM 8.6 MG/DL (8.5-10.1); CREATININE 3.95 MG/DL (0.50-1.00); PHOSPHORUS 5.8 MG/DL (2.5-4.9)
[2017-09-18] MEDS: INSULIN ASPART SUPPLEMENTAL SCALE SQ SCH ×4 (08:00→20:25)
[2017-09-18] MEDS: BUMETANIDE 1 MG TAB PO SCH (08:29)
[2017-09-18] MEDS: VERAPAMIL HCL 40 MG TAB PO SCH (08:29)
[2017-09-18] MEDS: guaiFENesin E.R. 600 MG TAB PO SCH ×2 (08:29→20:24)
[2017-09-18] MEDS: SODIUM CHLORIDE 0.9% FLUSH 10 ML FLUSH IV FLUSH SCH ×2 (08:30→20:24)
[2017-09-18] MEDS: CLOPIDOGREL 75 MG TAB PO SCH (08:30)
[2017-09-18] MEDS: LORATADINE 10 MG TAB PO SCH (08:30)
[2017-09-18] MEDS: ASPIRIN 81 MG CHEW TAB CHEW SCH (08:30)
[2017-09-18] MEDS: TIOTROPIUM BROMIDE 18 MCG INH INH SCH (08:38)
--- NOTE | 2017-09-18 10:37 | HHI.PR ---
Subjective Remarks Pulmonary function testing has revealed severe restrictive lung disease. This is discussed with the patient. No significant changes from previous day. Objective Vital Signs Date Time Temp Pulse Resp B/P (MAP) Pulse Ox O2 Delivery O2 Flow Rate FiO2 09/18/17 07:39 94 Nasal Cannula 2.00 09/18/17 05:00 88 09/18/17 05:00 88 09/18/17 04:00 86 09/18/17 03:56 96.1 85 18 149/74 (99) 100 09/18/17 03:44 100 Nasal Cannula 2.00 09/18/17 03:00 86 09/18/17 02:00 88 09/18/17 01:00 90 09/18/17 00:00 96 09/17/17 23:47 96.4 89 18 146/70 (95) 97 09/17/17 23:41 98 Nasal Cannula 2.00 09/17/17 23:00 87 09/17/17 22:00 84 09/17/17 21:00 88 09/17/17 20:17 99 Nasal Cannula 5.00 09/17/17 20:15 95 Nasal Cannula 2.00 09/17/17 20:09 96.4 85 18 135/114 (121) 95 09/17/17 20:00 86 09/17/17 19:00 87 09/17/17 18:00 87 09/17/17 17:00 84 09/17/17 16:00 86 09/17/17 15:28 100 Nasal Cannula 2.00 09/17/17 15:27 97.5 86 16 126/66 (86) 100 09/17/17 15:00 85 09/17/17 14:00 83 09/17/17 13:00 82 09/17/17 12:00 81 09/17/17 11:45 97.7 82 18 132/69 (90) 100 09/17/17 11:34 98 Nasal Cannula 2.00 09/17/17 11:00 84 I/O 09/17/17 09/17/17 09/17/17 09/18/17 09/18/17 09/18/17 07:00 15:00 23:00 07:00 15:00 23:00 Intake Total 480 ml 840 ml 1080 ml Output Total 200 ml 300 ml 0 ml Balance 280 ml 540 ml 1080 ml Intake Oral 480 ml 840 ml 1080 ml Output Urine Total 200 ml 300 ml 0 ml # Bowel Movements 0 Result Diagram: 09/18/1731309/18/17313 Objective Remarks GENERAL: NAD, A&Ox3 HEAD: Normocephalic. NECK: Supple, trachea midline. No lymphadenopathy. EYES: No scleral icterus. No injection or drainage. CARDIOVASCULAR: Regular rate and rhythm without murmurs, gallops, or rubs. RESPIRATORY: Breath sounds equal bilaterally. No accessory muscle use. GASTROINTESTINAL: Abdomen soft, non-tender, nondistended. MUSCULOSKELETAL: No cyanosis, or edema. SKIN: Warm and dry. NEURO: No focal neurological deficitis. A/P Problem List: (1) Insulin dependent diabetes mellitus ICD Code: E11.9 - Type 2 diabetes mellitus without complications; Z79.4 - care home (current) use of insulin (2) CAD (coronary artery disease) ICD Code: I25.10 - Atherosclerotic heart disease of [place] coronary artery without angina pectoris (3) CHF (congestive heart failure) ICD Code: I50.9 - Heart failure, unspecified Status: Acute (4) Pneumonia ICD Code: J18.9 - Pneumonia, unspecified organism Status: Acute (5) Chronic kidney disease ICD Code: N18.9 - Chronic kidney disease, unspecified Assessment and Plan 71-year-old female admitted secondary to CHF exacerbation. Found to have severe restrictive lung disease. Interstitial lung disease is present. Continue verapamil for hypertension. Continue steroids for possible inflammatory component. Labs reviewed. No acute changes in CBC or BMP. Continue to monitor labs. Labs ordered for further monitoring. Restrictive lung disease Pulmonology following Steroids are present for possible inflammatory element Continue oxygen supplementation Further pulmonary function testing as an outpatient CHF with exacerbation Cardiomyopathy This condition may be compounded by patient's hypertension and possible intrinsic lung disease Cardiology following Continue diuresis at lower dosing secondary to worsening renal function Continue oxygen supplementation Baseline ejection fraction is approximately 25% Pneumonia Possible intrinsic lung disease Pulmonary hypertension Pulmonology has been consulted Continue oxygen supplementation Continue Rocephin Continue azithromycin Follow sputum cultures Chest pain/CAD Resolved Negative cardiac workup No need for stents and cardiac catheter. Insulin-dependent diabetes mellitus Sliding scale insulin as patient nothing by mouth Monitor blood glucose Diabetic diet Chronic kidney disease Follow renal function Diuretics decreased Avoid nephrotoxins Losartan and hydrochlorothiazide have been stopped CAD/PVD/HLD Continue aspirin and Plavix UA concerning for UTI Continue antibiotics Follow urine culture DVT prophylaxis Heparin Problem Qualifiers (1) CHF (congestive heart failure): Qualified Codes: I50.23 - Acute on chronic systolic (congestive) heart failure Bernard Estrada MD Sep 18, 2017 10:37
[2017-09-18] MEDS: predniSONE 20 MG TAB PO SCH ×2 (11:33→20:24)
[2017-09-18] MEDS: RESP: ALBUTEROL 2.5 MG/3 ML NEB (PRN) NEB (12:14)
--- NOTE | 2017-09-18 12:30 | PD.CARD.PN ---
Subjective Subjective Remarks SOB somewhat better No chest pain Objective Medications Current Medications Medications (Trade) Dose Ordered Sig/Briana Route Start Time Stop Time Status Last Admin (NS Flush) 2 ml UNSCH PRN IV FLUSH 09/09/17 22:00 (NS Flush) 2 ml BID IV FLUSH 09/10/17 09:00 09/18/17 08:30 (Tylenol) 650 mg Q4H PRN PO 09/09/17 22:00 09/14/17 23:25 (Zofran Inj) 4 mg Q6H PRN IVP 09/09/17 22:00 (Narcan Inj) 0.4 mg UNSCH PRN IV PUSH 09/09/17 22:00 (Milk Of Magnesia Liq) 30 ml Q12H PRN PO 09/09/17 22:00 09/15/17 20:29 (Senokot) 17.2 mg Q12H PRN PO 09/09/17 22:00 (Dulcolax Supp) 10 mg DAILY PRN RECTAL 09/09/17 22:00 (Lactulose Liq) 30 ml DAILY PRN PO 09/09/17 22:00 Ceftriaxone Sodium 1000 mg/ Sodium Chloride 100 ml @ 200 mls/hr Q24H IV 09/10/17 21:00 09/17/17 22:32 Azithromycin 250 mg/Sodium Chloride 250 ml @ 250 mls/hr Q24H IV 09/10/17 22:00 09/17/17 22:32 (D50w (Vial) Inj) 50 ml UNSCH PRN IV PUSH 09/09/17 22:15 (Glucagon Inj) 1 mg UNSCH PRN OTHER 09/09/17 22:15 (NovoLOG SUPPLEMENTAL SCALE) 1 ACHS SLIDING SCALE SQ 09/10/17 08:00 09/18/17 11:36 (Duoneb Neb) 1 ampule Q4HR NEB PRN NEB 09/10/17 02:00 09/18/17 07:39 (Aspirin Chew) 81 mg DAILY CHEW 09/11/17 09:00 09/18/17 08:30 (Plavix) 75 mg DAILY PO 09/11/17 09:00 09/18/17 08:30 (Spiriva Inh) 18 mcg DAILY INH 09/11/17 09:00 09/18/17 08:38 (Claritin) 5 mg DAILY PO 09/11/17 09:00 09/18/17 08:30 (Pill Splitter) 1 ea UNSCH PRN OTHER 09/10/17 18:00 (Albuterol Neb) 2.5 mg Q6HR NEB PRN NEB 09/15/17 19:30 09/18/17 12:14 (Mucinex Er) 600 mg BID PO 09/15/17 21:00 09/18/17 08:29 (Bumetanide) 1 mg DAILY PO 09/17/17 09:00 Future Hold 09/18/17 08:29 (Isoptin) 40 mg DAILY PO 09/18/17 09:00 09/18/17 08:29 (Deltasone) 20 mg BID PO 09/18/17 09:00 09/18/17 11:33 (Lasix Inj) 40 mg BID@18 IV PUSH 09/18/17 18:00 Vital Signs / I&O Vital Signs Date Time Temp Pulse Resp B/P (MAP) Pulse Ox O2 Delivery O2 Flow Rate FiO2 09/18/17 10:00 89 09/18/17 09:00 86 09/18/17 08:00 90 09/18/17 07:39 94 Nasal Cannula 2.00 09/18/17 07:00 98 Nasal Cannula 2.00 09/18/17 07:00 97.2 90 20 147/68 (94) 98 09/18/17 05:00 88 09/18/17 05:00 88 09/18/17 04:00 86 09/18/17 03:56 96.1 85 18 149/74 (99) 100 09/18/17 03:44 100 Nasal Cannula 2.00 09/18/17 03:00 86 09/18/17 02:00 88 09/18/17 01:00 90 09/18/17 00:00 96 09/17/17 23:47 96.4 89 18 146/70 (95) 97 09/17/17 23:41 98 Nasal Cannula 2.00 09/17/17 23:00 87 09/17/17 22:00 84 09/17/17 21:00 88 09/17/17 20:17 99 Nasal Cannula 5.00 09/17/17 20:15 95 Nasal Cannula 2.00 09/17/17 20:09 96.4 85 18 135/114 (121) 95 09/17/17 20:00 86 09/17/17 19:00 87 09/17/17 18:00 87 09/17/17 17:00 84 09/17/17 16:00 86 09/17/17 15:28 100 Nasal Cannula 2.00 09/17/17 15:27 97.5 86 16 126/66 (86) 100 09/17/17 15:00 85 09/17/17 14:00 83 09/17/17 13:00 82 I/O 09/17/17 09/17/17 09/17/17 09/18/17 09/18/17 09/18/17 07:00 15:00 23:00 07:00 15:00 23:00 Intake Total 480 ml 840 ml 1080 ml Output Total 200 ml 300 ml 0 ml Balance 280 ml 540 ml 1080 ml Intake Oral 480 ml 840 ml 1080 ml Output Urine Total 200 ml 300 ml 0 ml # Bowel Movements 0 Physical Exam GENERAL: NAD, AAOx3 SKIN: Warm and dry. HEAD: Atraumatic. Normocephalic. EYES: Pupils equal and round. No scleral icterus. No injection or drainage. ENT: No nasal bleeding or discharge. Mucous membranes pink and moist. NECK: Trachea midline. No JVD. CARDIOVASCULAR: Regular rate and rhythm. RESPIRATORY: No accessory muscle use. Decreased breath sounds bilaterally GASTROINTESTINAL: Abdomen soft, non-tender, nondistended. Hepatic and splenic margins not palpable. MUSCULOSKELETAL: Extremities without clubbing, cyanosis, or edema. No obvious deformities. Right femoral no hematoma, distal pulses intact NEUROLOGICAL: Awake and alert. No obvious cranial nerve deficits. Motor grossly within normal limits. Five out of 5 muscle strength in the arms and legs. Normal speech. PSYCHIATRIC: Appropriate mood and affect; insight and judgment normal. Laboratory Laboratory Tests Test 09/18/17 03:14 White Blood Count 5.9 TH/MM3 Red Blood Count 3.80 MIL/MM3 Hemoglobin 10.5 GM/DL Hematocrit 33.2 % Mean Corpuscular Volume 87.2 FL Mean Corpuscular Hemoglobin 27.5 PG Mean Corpuscular Hemoglobin Concent 31.6 % Red Cell Distribution Width 18.0 % Platelet Count 263 TH/MM3 Mean Platelet Volume 9.2 FL Blood Urea Nitrogen 58 MG/DL Creatinine 3.95 MG/DL Random Glucose 156 MG/DL Calcium Level 8.6 MG/DL Phosphorus Level 5.8 MG/DL Sodium Level 135 MEQ/L Potassium Level 4.3 MEQ/L Chloride Level 101 MEQ/L Carbon Dioxide Level 23.2 MEQ/L Anion Gap 11 MEQ/L Estimat Glomerular Filtration Rate 11 ML/MIN 25-Hydroxy Vitamin D Total 18.5 ng/ML Parathyroid Hormone (Intact) 349.9 PG/ML Assessment and Plan Problem List: (1) CHF (congestive heart failure) ICD Codes: I50.9 - Heart failure, unspecified Status: Acute (2) Chronic kidney disease ICD Codes: N18.9 - Chronic kidney disease, unspecified (3) CAD (coronary artery disease) ICD Codes: I25.10 - Atherosclerotic heart disease of [place] coronary artery without angina pectoris Assessment and Plan 1) Acute on chronic CHF Echo showing decreased EF, previously normal EF Cardiac cath showing patent grafts, no lesions for intervention RHC showing high left sided filling pressures Will need to try to keep diuresing, but not putting out much urine, will plan to bladder scan Will have to watch creatinine, but will have to allow permissive azotemia while diuresing, nephrology consulted for help with kidney function 2) Rising creatinine May need to allow permissive azotemia HCTZ stopped Losartan stopped Consult nephrology 3) CAD No lesions for intervention, con't medical management Con't ASA/Plavix 4) Intrinsic lung disease Pulmonology consulted, appreciated recommendations Problem Qualifiers (1) CHF (congestive heart failure): Qualified Codes: I50.23 - Acute on chronic systolic (congestive) heart failure Shravan Muniz DO Sep 18, 2017 12:29
[2017-09-18] MEDS: FUROSEMIDE 40 MG/4 ML VIAL IV PUSH SCH (17:34)
[2017-09-18] MEDS: cefTRIAXone INJ 1,000 MG in SODIUM CHLORIDE 0.9% INJ 100 ML IV SCH (20:25)
[2017-09-18 21:15] LABS: AMORPHOUS SEDIMENT, URINE FEW; BACTERIA, URINE FEW /hpf; BILIRUBIN, URINE NEG (NEG); BLOOD, URINE TRACE (NEG); GLUCOSE,URINE 70 mg/dL (NEG); HYALINE CAST, URINE 32 /lpf (RARE); KETONE, URINE NEG (NEG); MUCUS URINE FEW /lpf (OCC); NITRITE,URINE NEG (NEG); PH, URINE 5.5 (5.0-8.5); SQUAMOUS EPITHELIAL CELL URINE 11 /hpf (0-5); URINE COLOR YELLOW (YELLW/STRAW); URINE LEUKOCYTE ESTERASE LARGE (NEG)
[2017-09-19] VITALS (26 sets, daily range): BP systolic 128–148; BP diastolic 60–74; PULSE 81–100; RESP 18–20; TEMP 96.1–98.2; O2SAT 92–98
[2017-09-19] MEDS: AZITHROMYCIN INJ 250 MG in SODIUM CHLOR 0.9% 250 ML INJ 250 ML IV SCH ×2 (00:32→21:24)
[2017-09-19] MEDS: RESP: ALBUTEROL 2.5 MG/3 ML NEB (PRN) NEB (03:23)
[2017-09-19 04:35] LABS: BASOPHIL % 0.3 % (0.0-2.0); EOSINOPHIL % 0.1 % (0.0-4.0); HEMATOCRIT 30.7 % (35.0-46.0); LYMPH % 7.1 % (9.0-44.0); LYMPHOCYTE # 0.3 TH/MM3 (1.0-4.8); MEAN CELL VOLUME 85.4 FL (80.0-100.0); MEAN CORPUSCULAR HEMOGLOBIN 27.7 PG (27.0-34.0); MEAN CORPUSCULAR HGB CONC 32.5 % (32.0-36.0); MEAN PLATELET VOLUME 9.1 FL (7.0-11.0); MONO % 2.2 % (0.0-8.0); MONOCYTE # 0.1 TH/MM3 (0-0.9); NEUT % 90.3 % (16.0-70.0); PLATELET COUNT 257 TH/MM3 (150-450); WHITE BLOOD COUNT 4.4 TH/MM3 (4.0-11.0)
[2017-09-19 04:47] LABS: ALBUMIN 2.9 GM/DL (3.4-5.0); ALT (GPT) 21 U/L (10-53); AST (GOT) 25 U/L (15-37); BICARBONATE 20.3 MEQ/L (21.0-32.0); BLOOD UREA NITROGEN 61 MG/DL (7-18); C-REACTIVE PROTEIN 1.01 MG/DL (0.00-0.30); CALCIUM 8.5 MG/DL (8.5-10.1); CHLORIDE 101 MEQ/L (98-107); CREATININE 3.87 MG/DL (0.50-1.00); GLOMERULAR FILTRATION RATE 11 ML/MIN (>89); GLUCOSE,RANDOM 184 MG/DL (74-106); SODIUM (NA) 132 MEQ/L (136-145)
[2017-09-19 04:52] LABS: ALKALINE PHOSPHATASE 156 U/L (45-117); TOTAL BILIRUBIN ADULT 0.4 MG/DL (0.2-1.0); TOTAL PROTEIN 7.3 GM/DL (6.4-8.2)
[2017-09-19 05:23] LABS: RHEUMATOID FACTOR SCREEN NEGATIVE (NEGATIVE)
[2017-09-19] MEDS: INSULIN ASPART SUPPLEMENTAL SCALE SQ SCH ×4 (08:00→21:25)
[2017-09-19] MEDS: RESP: ALBUTEROL 2.5 MG/IPRATROPIUM 0.5 MG NEB (PRN) NEB ×3 (08:23→19:24)
[2017-09-19] MEDS: VERAPAMIL HCL 40 MG TAB PO SCH (08:52)
[2017-09-19] MEDS: predniSONE 20 MG TAB PO SCH ×2 (08:52→21:24)
[2017-09-19] MEDS: SODIUM CHLORIDE 0.9% FLUSH 10 ML FLUSH IV FLUSH SCH ×2 (08:52→21:25)
[2017-09-19] MEDS: CLOPIDOGREL 75 MG TAB PO SCH (08:52)
[2017-09-19] MEDS: ASPIRIN 81 MG CHEW TAB CHEW SCH (08:52)
[2017-09-19] MEDS: FUROSEMIDE 40 MG/4 ML VIAL IV PUSH SCH ×2 (08:52→16:51)
[2017-09-19] MEDS: LORATADINE 10 MG TAB PO SCH (08:53)
[2017-09-19] MEDS: TIOTROPIUM BROMIDE 18 MCG INH INH SCH (08:53)
[2017-09-19] MEDS: guaiFENesin E.R. 600 MG TAB PO SCH ×2 (08:53→21:24)
[2017-09-19] MEDS: BUMETANIDE 1 MG TAB PO SCH (08:53)
--- NOTE | 2017-09-19 09:26 | HHI.PR ---
Subjective Remarks Patient seen and examined this morning. Sitting up on the side of bed overall doing well. Denies any chest pain. Denies any abdominal pain. Does admit to having some mild shortness of breath and frequent cough. She is about to receive a breathing treatment. She reports having 2 urinations during the night. She is concerned that she will have to get dialysis during this hospitalization, she will continue discuss with nephrology about this concern. Objective Vitals Vital Signs Date Time Temp Pulse Resp B/P (MAP) Pulse Ox O2 Delivery O2 Flow Rate FiO2 09/19/17 08:10 85 09/19/17 08:10 95 Nasal Cannula 2.00 09/19/17 08:10 98.0 89 20 148/64 (92) 94 09/19/17 07:22 98 Nasal Cannula 2.00 09/19/17 06:00 87 09/19/17 05:00 90 09/19/17 04:15 96.8 90 18 132/60 (84) 95 09/19/17 04:13 96 Nasal Cannula 2.00 09/19/17 04:00 90 09/19/17 03:00 94 09/19/17 02:00 93 09/19/17 01:00 94 09/19/17 00:00 94 09/18/17 23:00 96 Nasal Cannula 2.00 09/18/17 23:00 96.7 95 18 133/66 (88) 95 09/18/17 23:00 98 09/18/17 22:00 98 09/18/17 21:00 96 09/18/17 20:51 98 Nasal Cannula 2.00 09/18/17 20:00 96.7 97 18 146/67 (93) 96 09/18/17 20:00 98 09/18/17 20:00 97 Nasal Cannula 2.00 09/18/17 19:00 96 09/18/17 18:00 96 09/18/17 17:00 94 09/18/17 16:00 90 09/18/17 15:00 99 Nasal Cannula 2.00 09/18/17 15:00 97.6 93 16 150/73 (98) 99 09/18/17 15:00 90 09/18/17 14:00 88 09/18/17 13:00 81 09/18/17 12:00 87 09/18/17 11:00 97 Nasal Cannula 2.00 2/10/18 11:00 97.6 88 20 121/66 (84) 97 09/18/17 11:00 89 09/18/17 10:00 89 I/O 09/18/17 09/18/17 09/18/17 09/19/17 09/19/17 09/19/17 07:00 15:00 23:00 07:00 15:00 23:00 Intake Total 1080 ml 840 ml 480 ml Output Total 0 ml 0 ml 310 ml Balance 1080 ml 840 ml 170 ml Intake Oral 1080 ml 840 ml 480 ml Output Urine Total 0 ml 0 ml 310 ml # Bowel Movements 0 0 1 Result Diagram: 09/19/17 0329 09/19/17 0329 Imaging Last Impressions Renal Ultrasound 09/17/17 0000 Signed Impressions: Service Date/Time: Sunday, September 17, 2017 18:45 - CONCLUSION: 1. No evidence of hydronephrosis. 2. There is some mild increased echogenicity of the renal parenchyma bilaterally. 3. There appears to be a 3 mm nonobstructing stone in each kidney. Gerry Jernigan MD Chest X-Ray 09/09/171918 Signed Impressions: Service Date/Time: September 19:42 - CONCLUSION: Small bilateral pleural effusions. Bibasilar atelectasis and/or infiltrates. Mild cardiomegaly. Everett Matute MD Objective Remarks GENERAL: female sitting up in bed in mild distress SKIN: No rashes, ecchymoses or lesions. Cool and dry. HEAD: Atraumatic. Normocephalic. No temporal or scalp tenderness. EYES: Pupils equal round and reactive. Extraocular motions intact. No scleral icterus. No injection or drainage. ENT: Nose without bleeding, purulent drainage or septal hematoma. Throat without erythema, tonsillar hypertrophy or exudate. Uvula midline. Airway patent. NECK: Trachea midline. No JVD or lymphadenopathy. Supple, nontender, no meningeal signs. CARDIOVASCULAR: Regular rate and rhythm without murmurs, gallops, or rubs. RESPIRATORY: Bilateral crackles. Decreased breath sounds bilaterally in the lower lobes GASTROINTESTINAL: Abdomen soft, non-tender, nondistended. No hepato-splenomegaly , or palpable masses. No guarding. MUSCULOSKELETAL: 2+ pitting edema to the mid shins. No calf tenderness. Left foot amputation NEUROLOGICAL: Awake and alert. Cranial nerves II through XII intact. Motor and sensory grossly within normal limits. Normal speech. Medications and IVs Current Medications Medications (Trade) Dose Ordered Sig/Briana Route Start Time Stop Time Status Last Admin (NS Flush) 2 ml UNSCH PRN IV FLUSH 09/09/17 22:00 (NS Flush) 2 ml BID IV FLUSH 09/10/17 09:00 09/19/17 08:52 (Tylenol) 650 mg Q4H PRN PO 09/09/17 22:00 09/14/17 23:25 (Zofran Inj) 4 mg Q6H PRN IVP 09/09/17 22:00 (Narcan Inj) 0.4 mg UNSCH PRN IV PUSH 09/09/17 22:00 (Milk Of Magnesia Liq) 30 ml Q12H PRN PO 09/09/17 22:00 09/15/17 20:29 (Senokot) 17.2 mg Q12H PRN PO 09/09/17 22:00 (Dulcolax Supp) 10 mg DAILY PRN RECTAL 09/09/17 22:00 (Lactulose Liq) 30 ml DAILY PRN PO 09/09/17 22:00 Ceftriaxone Sodium 1000 mg/ Sodium Chloride 100 ml @ 200 mls/hr Q24H IV 09/10/17 21:00 09/18/17 20:25 Azithromycin 250 mg/Sodium Chloride 250 ml @ 250 mls/hr Q24H IV 09/10/17 22:00 09/19/17 00:32 (D50w (Vial) Inj) 50 ml UNSCH PRN IV PUSH 09/09/17 22:15 (Glucagon Inj) 1 mg UNSCH PRN OTHER 09/09/17 22:15 (NovoLOG SUPPLEMENTAL SCALE) 1 ACHS SLIDING SCALE SQ 09/10/17 08:00 09/19/17 08:00 (Duoneb Neb) 1 ampule Q4HR NEB PRN NEB 09/10/17 02:00 09/19/17 08:23 (Aspirin Chew) 81 mg DAILY CHEW 09/11/17 09:00 09/19/17 08:52 (Plavix) 75 mg DAILY PO 09/11/17 09:00 09/19/17 08:52 (Spiriva Inh) 18 mcg DAILY INH 09/11/17 09:00 09/19/17 08:53 (Claritin) 5 mg DAILY PO 09/11/17 09:00 09/19/17 08:53 (Pill Splitter) 1 ea UNSCH PRN OTHER 09/10/17 18:00 (Albuterol Neb) 2.5 mg Q6HR NEB PRN NEB 09/15/17 19:30 09/19/17 03:23 (Mucinex Er) 600 mg BID PO 09/15/17 21:00 09/19/17 08:53 (Bumetanide) 1 mg DAILY PO 09/17/17 09:00 Future hold 09/19/17 08:53 (Isoptin) 40 mg DAILY PO 09/18/17 09:00 09/19/17 08:52 (Deltasone) 20 mg BID PO 09/18/17 09:00 09/19/17 08:52 (Lasix Inj) 40 mg BID@ IV PUSH 09/18/17 18:00 09/19/17 08:52 A/P Problem List: (1) CHF (congestive heart failure) ICD Code: I50.9 - Heart failure, unspecified Status: Acute (2) Pneumonia ICD Code: J18.9 - Pneumonia, unspecified organism Status: Acute (3) CAD (coronary artery disease) ICD Code: I25.10 - Atherosclerotic heart disease of [place] coronary artery without angina pectoris (4) Insulin dependent diabetes mellitus ICD Code: E11.9 - Type 2 diabetes mellitus without complications; Z79.4 - [employer] (current) use of insulin (5) Chronic kidney disease ICD Code: N18.9 - Chronic kidney disease, unspecified (6) Acute renal failure ICD Code: N17.9 - Acute kidney failure, unspecified Assessment and Plan 71-year-old female admitted secondary to CHF exacerbation. Found to have severe restrictive lung disease. Interstitial lung disease is present. Continue verapamil for hypertension. Continue steroids for possible inflammatory component. Labs reviewed. No acute changes in CBC or BMP. Continue to monitor labs. Labs ordered for further monitoring. Restrictive lung disease Pulmonology following Steroids are present for possible inflammatory element Continue oxygen supplementation Further pulmonary function testing as an outpatient CHF with exacerbation Cardiomyopathy This condition may be compounded by patient's hypertension and possible intrinsic lung disease Cardiology following Continue diuresis at lower dosing secondary to worsening renal function Continue oxygen supplementation Baseline ejection fraction is approximately 25% Pneumonia Possible intrinsic lung disease Pulmonary hypertension Pulmonology has been consulted Continue oxygen supplementation Continue Rocephin Continue azithromycin Follow sputum cultures Chest pain/CAD Resolved Negative cardiac workup No need for stents and cardiac catheter. Insulin-dependent diabetes mellitus Sliding scale insulin as patient nothing by mouth Monitor blood glucose Diabetic diet Acute kidney injury in setting of chronic kidney disease Nephrology consulted, recommendations appreciated Follow renal function Diuretics decreased Avoid nephrotoxins Losartan and hydrochlorothiazide have been stopped Patient reports having 2 urinations overnight. CAD/PVD/HLD Continue aspirin and Plavix UA concerning for UTI Continue antibiotics Follow urine culture DVT prophylaxis Heparin Problem Qualifiers (1) CHF (congestive heart failure): Qualified Codes: I50.23 - Acute on chronic systolic (congestive) heart failure Juvencio Duenas MD, R3 Sep 19, 2017 09:26
--- NOTE | 2017-09-19 10:25 | HHI.NPPN ---
Subjective General Problems: Anemia, Edema Renal Failure: Chronic, Acute Additional Remarks This is a late entry, note for 09/18/17. Patient is alert, mild SOB, not in distress. Objective Data Data Vital Signs Date Time Temp Pulse Resp B/P (MAP) Pulse Ox O2 Delivery O2 Flow Rate FiO2 09/19/17 09:00 88 09/19/17 08:10 85 09/19/17 08:10 95 Nasal Cannula 2.00 09/19/17 08:10 98.0 89 20 148/64 (92) 94 09/19/17 07:22 98 Nasal Cannula 2.00 09/19/17 06:00 87 09/19/17 05:00 90 09/19/17 04:15 96.8 90 18 132/60 (84) 95 09/19/17 04:13 96 Nasal Cannula 2.00 09/19/17 04:00 90 09/19/17 03:00 94 09/19/17 02:00 93 09/19/17 01:00 94 09/19/17 00:00 94 09/18/17 23:00 96 Nasal Cannula 2.00 09/18/17 23:00 96.7 95 18 133/66 (88) 95 09/18/17 23:00 98 09/18/17 22:00 98 09/18/17 21:00 96 09/18/17 20:51 98 Nasal Cannula 2.00 09/18/17 20:00 96.7 97 18 146/67 (93) 96 09/18/17 20:00 98 09/18/17 20:00 97 Nasal Cannula 2.00 09/18/17 19:00 96 09/18/17 18:00 96 09/18/17 17:00 94 09/18/17 16:00 90 09/18/17 15:00 99 Nasal Cannula 2.00 09/18/17 15:00 97.6 93 16 150/73 (98) 99 09/18/17 15:00 90 09/18/17 14:00 88 09/18/17 13:00 81 09/18/17 12:00 87 09/18/17 11:00 97 Nasal Cannula 2.00 09/18/17 11:00 97.6 88 20 121/66 (84) 97 09/18/17 11:00 89 -: 09/19/17 0329 09/19/17 0329 Microbiology 09/18/17 Urine Culture, Received Pending Physical Exam General Appearance: No Acute Distress, Comfortable Eyes Eye Exam: Pupils Equal Throat Throat Exam: Oral Mucosa [place] & Moist Pulmonary Resp Exam: No Distress, Crackles, Rhonchi, Decreased Bases, Diminished Breath Sounds Gastrointestinal/Abdomen GI Exam: Soft, Non-Tender, Bowel Sounds Present Extremeties Extremities Exam: Moderate Edema, Pitting Edema Neurologic Neuro Exam: Alert, Awake, Oriented Psychiatric Psych Exam: Appropriate Responses Assessment/Plan Problem List: (1) Acute renal failure ICD Codes: N17.9 - Acute kidney failure, unspecified Plan: Patient has recent exposure to dye 60 cc was used during heart catheterization Patient has chronic kidney disease and acute renal failure due to fluid fluctuation possible dye-induced Or diuretic induced Agree with decreasing Bumex 1 mg daily monitor intake and output and adjust his diuretic accordingly Monitor BMP Avoid dye studies Avoid nephrotoxins Urine out put is low, start Lasix 40 mg BID. Urine Eosinophils negative, Renal U/S noted. Follow the urine out put and BMP. (2) Chronic kidney disease ICD Codes: N18.9 - Chronic kidney disease, unspecified (3) CHF (congestive heart failure) ICD Codes: I50.9 - Heart failure, unspecified Status: Acute Plan: Cardiology following on Bumex (4) CAD (coronary artery disease) ICD Codes: I25.10 - Atherosclerotic heart disease of [place] coronary artery without angina pectoris Plan: previous CABG (5) Insulin dependent diabetes mellitus ICD Codes: E11.9 - Type 2 diabetes mellitus without complications; Z79.4 - [employer] (current) use of insulin Plan: follow BG Problem Qualifiers (1) CHF (congestive heart failure): Qualified Codes: I50.23 - Acute on chronic systolic (congestive) heart failure Lexy Mckeon MD Sep 19, 2017 10:25
--- NOTE | 2017-09-19 10:26 | HHI.NPPN ---
Subjective General Problems: Anemia, Edema Renal Failure: Chronic, Acute Additional Remarks Patient is alert, mild SOB, not in distress, breathing is better. Objective Data Data Vital Signs Date Time Temp Pulse Resp B/P (MAP) Pulse Ox O2 Delivery O2 Flow Rate FiO2 09/19/17 09:00 88 09/19/17 08:10 85 09/19/17 08:10 95 Nasal Cannula 2.00 09/19/17 08:10 98.0 89 20 148/64 (92) 94 09/19/17 07:22 98 Nasal Cannula 2.00 09/19/17 06:00 87 09/19/17 05:00 90 09/19/17 04:15 96.8 90 18 132/60 (84) 95 09/19/17 04:13 96 Nasal Cannula 2.00 09/19/17 04:00 90 09/19/17 03:00 94 09/19/17 02:00 93 09/19/17 01:00 94 09/19/17 00:00 94 09/18/17 23:00 96 Nasal Cannula 2.00 09/18/17 23:00 96.7 95 18 133/66 (88) 95 09/18/17 23:00 98 09/18/17 22:00 98 09/18/17 21:00 96 09/18/17 20:51 98 Nasal Cannula 2.00 09/18/17 20:00 96.7 97 18 146/67 (93) 96 09/18/17 20:00 98 09/18/17 20:00 97 Nasal Cannula 2.00 09/18/17 19:00 96 09/18/17 18:00 96 09/18/17 17:00 94 09/18/17 16:00 90 09/18/17 15:00 99 Nasal Cannula 2.00 09/18/17 15:00 97.6 93 16 150/73 (98) 99 09/18/17 15:00 90 09/18/17 14:00 88 09/18/17 13:00 81 09/18/17 12:00 87 09/18/17 11:00 97 Nasal Cannula 2.00 09/18/17 11:00 97.6 88 20 121/66 (84) 97 09/18/17 11:00 89 -: 09/19/17 0329 09/19/17 0329 Microbiology 09/18/17 Urine Culture, Received Pending Physical Exam General Appearance: No Acute Distress, Comfortable Eyes Eye Exam: Pupils Equal Throat Throat Exam: Oral Mucosa [place] & Moist Pulmonary Resp Exam: No Distress, Crackles, Rhonchi, Decreased Bases, Diminished Breath Sounds Gastrointestinal/Abdomen GI Exam: Soft, Non-Tender, Bowel Sounds Present Extremeties Extremities Exam: Moderate Edema, Pitting Edema Neurologic Neuro Exam: Alert, Awake, Oriented Psychiatric Psych Exam: Appropriate Responses Assessment/Plan Problem List: (1) Acute renal failure ICD Codes: N17.9 - Acute kidney failure, unspecified Plan: Patient has recent exposure to dye 60 cc was used during heart catheterization Patient has chronic kidney disease and acute renal failure due to fluid fluctuation possible dye-induced Or diuretic induced Agree with decreasing Bumex 1 mg daily monitor intake and output and adjust his diuretic accordingly Monitor BMP Avoid dye studies Avoid nephrotoxins Urine out put is low, start Lasix 40 mg BID. Urine Eosinophils negative, Renal U/S noted. Creatinine is almost same. (2) Chronic kidney disease ICD Codes: N18.9 - Chronic kidney disease, unspecified (3) CHF (congestive heart failure) ICD Codes: I50.9 - Heart failure, unspecified Status: Acute Plan: Cardiology following on Bumex (4) CAD (coronary artery disease) ICD Codes: I25.10 - Atherosclerotic heart disease of [place] coronary artery without angina pectoris Plan: previous CABG (5) Insulin dependent diabetes mellitus ICD Codes: E11.9 - Type 2 diabetes mellitus without complications; Z79.4 - [facility] (current) use of insulin Plan: follow BG Problem Qualifiers (1) CHF (congestive heart failure): Qualified Codes: I50.23 - Acute on chronic systolic (congestive) heart failure Lexy Mckeon MD Sep 19, 2017 10:26
--- NOTE | 2017-09-19 11:09 | PD.CARD.PN ---
Subjective Subjective Remarks SOB getting better Feels better after nebulizer No chest pain Better urine output Objective Medications Current Medications Medications (Trade) Dose Ordered Sig/Briana Route Start Time Stop Time Status Last Admin (NS Flush) 2 ml UNSCH PRN IV FLUSH 09/09/17 22:00 (NS Flush) 2 ml BID IV FLUSH 09/10/17 09:00 09/19/17 08:52 (Tylenol) 650 mg Q4H PRN PO 09/09/17 22:00 09/14/17 23:25 (Zofran Inj) 4 mg Q6H PRN IVP 09/09/17 22:00 (Narcan Inj) 0.4 mg UNSCH PRN IV PUSH 09/09/17 22:00 (Milk Of Magnesia Liq) 30 ml Q12H PRN PO 09/09/17 22:00 09/15/17 20:29 (Senokot) 17.2 mg Q12H PRN PO 09/09/17 22:00 (Dulcolax Supp) 10 mg DAILY PRN RECTAL 09/09/17 22:00 (Lactulose Liq) 30 ml DAILY PRN PO 09/09/17 22:00 Ceftriaxone Sodium 1000 mg/ Sodium Chloride 100 ml @ 200 mls/hr Q24H IV 09/10/17 21:00 09/18/17 20:25 Azithromycin 250 mg/Sodium Chloride 250 ml @ 250 mls/hr Q24H IV 09/10/17 22:00 09/19/17 00:32 (D50w (Vial) Inj) 50 ml UNSCH PRN IV PUSH 09/09/17 22:15 (Glucagon Inj) 1 mg UNSCH PRN OTHER 09/09/17 22:15 (NovoLOG SUPPLEMENTAL SCALE) 1 ACHS SLIDING SCALE SQ 09/10/17 08:00 09/19/17 08:00 (Duoneb Neb) 1 ampule Q4HR NEB PRN NEB 09/10/17 02:00 09/19/17 08:23 (Aspirin Chew) 81 mg DAILY CHEW 09/11/17 09:00 09/19/17 08:52 (Plavix) 75 mg DAILY PO 09/11/17 09:00 09/19/17 08:52 (Spiriva Inh) 18 mcg DAILY INH 09/11/17 09:00 09/19/17 08:53 (Claritin) 5 mg DAILY PO 09/11/17 09:00 09/19/17 08:53 (Pill Splitter) 1 ea UNSCH PRN OTHER 09/10/17 18:00 (Albuterol Neb) 2.5 mg Q6HR NEB PRN NEB 09/15/17 19:30 09/19/17 03:23 (Mucinex Er) 600 mg BID PO 09/15/17 21:00 09/19/17 08:53 (Bumetanide) 1 mg DAILY PO 09/17/17 09:00 Future hold 09/19/17 08:53 (Isoptin) 40 mg DAILY PO 09/18/17 09:00 09/19/17 08:52 (Deltasone) 20 mg BID PO 09/18/17 09:00 09/19/17 08:52 (Lasix Inj) 40 mg BID@ IV PUSH 09/18/17 18:00 09/19/17 08:52 Vital Signs / I&O Vital Signs Date Time Temp Pulse Resp B/P (MAP) Pulse Ox O2 Delivery O2 Flow Rate FiO2 09/19/17 10:00 88 09/19/17 09:00 88 09/19/17 08:10 85 09/19/17 08:10 95 Nasal Cannula 2.00 09/19/17 08:10 98.0 89 20 148/64 (92) 94 09/19/17 07:22 98 Nasal Cannula 2.00 09/19/17 06:00 87 09/19/17 05:00 90 09/19/17 04:15 96.8 90 18 132/60 (84) 95 09/19/17 04:13 96 Nasal Cannula 2.00 09/19/17 04:00 90 09/19/17 03:00 94 09/19/17 02:00 93 09/19/17 01:00 94 09/19/17 00:00 94 09/18/17 23:00 96 Nasal Cannula 2.00 09/18/17 23:00 96.7 95 18 133/66 (88) 95 09/18/17 23:00 98 09/18/17 22:00 98 09/18/17 21:00 96 09/18/17 20:51 98 Nasal Cannula 2.00 09/18/17 20:00 96.7 97 18 146/67 (93) 96 2/10/18 20:00 98 09/18/17 20:00 97 Nasal Cannula 2.00 09/18/17 19:00 96 09/18/17 18:00 96 09/18/17 17:00 94 09/18/17 16:00 90 09/18/17 15:00 99 Nasal Cannula 2.00 09/18/17 15:00 97.6 93 16 150/73 (98) 99 09/18/17 15:00 90 09/18/17 14:00 88 09/18/17 13:00 81 09/18/17 12:00 87 I/O 09/18/17 09/18/17 09/18/17 09/19/17 09/19/17 09/19/17 07:00 15:00 23:00 07:00 15:00 23:00 Intake Total 1080 ml 840 ml 480 ml Output Total 0 ml 0 ml 310 ml Balance 1080 ml 840 ml 170 ml Intake Oral 1080 ml 840 ml 480 ml Output Urine Total 0 ml 0 ml 310 ml # Bowel Movements 0 0 1 Physical Exam GENERAL: NAD, AAOx3 SKIN: Warm and dry. HEAD: Atraumatic. Normocephalic. EYES: Pupils equal and round. No scleral icterus. No injection or drainage. ENT: No nasal bleeding or discharge. Mucous membranes pink and moist. NECK: Trachea midline. No JVD. CARDIOVASCULAR: Regular rate and rhythm. RESPIRATORY: No accessory muscle use. Decreased breath sounds bilaterally GASTROINTESTINAL: Abdomen soft, non-tender, nondistended. Hepatic and splenic margins not palpable. MUSCULOSKELETAL: Extremities without clubbing, cyanosis, or edema. No obvious deformities. Right femoral no hematoma, distal pulses intact NEUROLOGICAL: Awake and alert. No obvious cranial nerve deficits. Motor grossly within normal limits. Five out of 5 muscle strength in the arms and legs. Normal speech. PSYCHIATRIC: Appropriate mood and affect; insight and judgment normal. Laboratory Laboratory Tests Test 09/18/17 19:57 09/19/17 03:29 Urine Color YELLOW Urine Turbidity HAZY Urine pH 5.5 Urine Specific [place] 1.019 Urine Protein 300 mg/dL Urine Glucose (UA) 70 mg/dL Urine Ketones NEG mg/dL Urine Occult Blood TRACE Urine Nitrite NEG Urine Bilirubin NEG Urine Urobilinogen LESS THAN 2.0 MG/DL Urine Leukocyte Esterase LARGE Urine RBC 9 /hpf Urine WBC 18 /hpf Urine Squamous Epithelial Cells 11 /hpf Urine Amorphous Sediment FEW Urine Bacteria FEW /hpf Urine Hyaline Casts 32 /lpf Urine Mucus FEW /lpf Microscopic Urinalysis Comment CULTURE INDICATED Urine Eosinophils NONE SEEN /HPF Urine Random Creatinine 116 MG/DL Urine Random Total Protein 424 MG/DL Urine Protein/Creatinine Ratio 3.66 White Blood Count 4.4 TH/MM3 Red Blood Count 3.60 MIL/MM3 Hemoglobin 10.0 GM/DL Hematocrit 30.7 % Mean Corpuscular Volume 85.4 FL Mean Corpuscular Hemoglobin 27.7 PG Mean Corpuscular Hemoglobin Concent 32.5 % Red Cell Distribution Width 18.0 % Platelet Count 257 TH/MM3 Mean Platelet Volume 9.1 FL Neutrophils (%) (Auto) 90.3 % Lymphocytes (%) (Auto) 7.1 % Monocytes (%) (Auto) 2.2 % Eosinophils (%) (Auto) 0.1 % Basophils (%) (Auto) 0.3 % Neutrophils # (Auto) 4.0 TH/MM3 Lymphocytes # (Auto) 0.3 TH/MM3 Monocytes # (Auto) 0.1 TH/MM3 Eosinophils # (Auto) 0.0 TH/MM3 Basophils # (Auto) 0.0 TH/MM3 CBC Comment DIFF FINAL Differential Comment Erythrocyte Sedimentation Rate 33 mm/hr Blood Urea Nitrogen 61 MG/DL Creatinine 3.87 MG/DL Random Glucose 184 MG/DL Total Protein 7.3 GM/DL Albumin 2.9 GM/DL Calcium Level 8.5 MG/DL Alkaline Phosphatase 156 U/L Aspartate Amino Transf (AST/SGOT) 25 U/L Alanine Aminotransferase (ALT/SGPT) 21 U/L Total Bilirubin 0.4 MG/DL Sodium Level 132 MEQ/L Potassium Level 4.7 MEQ/L Chloride Level 101 MEQ/L Carbon Dioxide Level 20.3 MEQ/L Anion Gap 11 MEQ/L Estimat Glomerular Filtration Rate 11 ML/MIN C-Reactive Protein 1.01 MG/DL Rheumatoid Factor Screen NEGATIVE Rheumatoid Factor Titer IU/ML Assessment and Plan Problem List: (1) CHF (congestive heart failure) ICD Codes: I50.9 - Heart failure, unspecified Status: Acute (2) Chronic kidney disease ICD Codes: N18.9 - Chronic kidney disease, unspecified (3) CAD (coronary artery disease) ICD Codes: I25.10 - Atherosclerotic heart disease of [place] coronary artery without angina pectoris Assessment and Plan 1) Acute on chronic CHF Echo showing decreased EF, previously normal EF Cardiac cath showing patent grafts, no lesions for intervention RHC showing high left sided filling pressures Will need to try to keep diuresing, but not putting out much urine, will plan to bladder scan Will have to watch creatinine, but will have to allow permissive azotemia while diuresing, nephrology consulted for help with kidney function Will add Coreg No MICHELLE-I/Spirolactone/Entresto due to kidney disease 2) Rising creatinine May need to allow permissive azotemia HCTZ stopped Losartan stopped Consult nephrology 3) CAD No lesions for intervention, con't medical management Con't ASA/Plavix 4) Intrinsic lung disease Pulmonology consulted, appreciated recommendations Problem Qualifiers (1) CHF (congestive heart failure): Qualified Codes: I50.23 - Acute on chronic systolic (congestive) heart failure Shravan Muniz DO Sep 19, 2017 11:09
[2017-09-19] MEDS: cefTRIAXone INJ 1,000 MG in SODIUM CHLORIDE 0.9% INJ 100 ML IV SCH (21:23)
[2017-09-19] MEDS: CARVEDILOL 3.125 MG TAB PO SCH (21:24)
[2017-09-20] VITALS (29 sets, daily range): BP systolic 102–144; BP diastolic 55–79; PULSE 64–88; RESP 18–20; TEMP 96.2–98.4; O2SAT 94–100
[2017-09-20] MEDS: RESP: ALBUTEROL 2.5 MG/3 ML NEB (PRN) NEB (02:42)
--- NOTE | 2017-09-20 07:39 | HHI.PR ---
Subjective Remarks She felt short of breath o'clock. Coughing in the morning. Short of breath however improved at this time. No chest pain, lightheadedness. Edema in the legs some. Since she has better urine output went to the best twice overnight. Constipation. Denies fever chills. Objective Vitals Vital Signs Date Time Temp Pulse Resp B/P (MAP) Pulse Ox O2 Delivery O2 Flow Rate FiO2 09/20/17 03:08 93 Nasal Cannula 2.00 09/20/17 03:00 76 09/20/17 02:00 76 09/20/17 01:00 76 09/20/17 00:00 78 09/19/17 23:00 96.1 84 18 128/66 (86) 93 09/19/17 23:00 83 09/19/17 23:00 93 Nasal Cannula 2.00 09/19/17 22:00 84 09/19/17 21:00 86 09/19/17 20:00 96 Nasal Cannula 2.00 09/19/17 20:00 88 09/19/17 20:00 96.1 86 18 143/74 (97) 96 09/19/17 19:25 98 Nasal Cannula 2.00 09/19/17 19:00 86 09/19/17 18:00 87 09/19/17 17:00 84 09/19/17 16:00 84 09/19/17 15:00 97.9 100 20 129/74 (92) 98 09/19/17 15:00 88 09/19/17 15:00 98 Nasal Cannula 2.00 09/19/17 14:00 85 09/19/17 13:00 84 09/19/17 12:00 81 09/19/17 11:00 92 Nasal Cannula 2.00 09/19/17 11:00 98.2 89 20 139/67 (91) 92 09/19/17 11:00 88 09/19/17 10:00 88 09/19/17 09:00 88 09/19/17 08:10 85 09/19/17 08:10 95 Nasal Cannula 2.00 09/19/17 08:10 98.0 89 20 148/64 (92) 94 I/O 09/19/17 09/19/17 09/19/17 09/20/17 09/20/17 09/20/17 07:00 15:00 23:00 07:00 15:00 23:00 Intake Total 480 ml 720 ml 980 ml Output Total 310 ml 300 ml 400 ml Balance 170 ml 420 ml 580 ml Intake Oral 480 ml 720 ml 980 ml Output Urine Total 310 ml 300 ml 400 ml # Bowel Movements 1 0 2 Result Diagram: 09/19/179 09/19/179 Imaging Last Impressions Renal Ultrasound 09/17/17 0000 Signed Impressions: Service Date/Time: Sunday, September 17, 2017 18:45 - CONCLUSION: 1. No evidence of hydronephrosis. 2. There is some mild increased echogenicity of the renal parenchyma bilaterally. 3. There appears to be a 3 mm nonobstructing stone in each kidney. Gerry Jernigan MD Chest X-Ray 09/09/171918 Signed Impressions: Service Date/Time: September 19:42 - CONCLUSION: Small bilateral pleural effusions. Bibasilar atelectasis and/or infiltrates. Mild cardiomegaly. Everett Matute MD Objective Remarks GENERAL: female sitting up in bed in mild distress SKIN: No rashes, ecchymoses or lesions. Cool and dry. HEAD: Atraumatic. Normocephalic. No temporal or scalp tenderness. EYES: Pupils equal round and reactive. Extraocular motions intact. No scleral icterus. No injection or drainage. ENT: Nose without bleeding, purulent drainage or septal hematoma. Throat without erythema, tonsillar hypertrophy or exudate. Uvula midline. Airway patent. NECK: Trachea midline. No JVD or lymphadenopathy. Supple, nontender, no meningeal signs. CARDIOVASCULAR: Regular rate and rhythm without murmurs, gallops, or rubs. RESPIRATORY: Bilateral crackles. Decreased breath sounds bilaterally in the lower lobes GASTROINTESTINAL: Abdomen soft, non-tender, nondistended. No hepato-splenomegaly , or palpable masses. No guarding. MUSCULOSKELETAL: 2+ pitting edema to the mid shins. No calf tenderness. Left foot amputation NEUROLOGICAL: Awake and alert. Cranial nerves II through XII intact. Motor and sensory grossly within normal limits. Normal speech. 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 Found to have severe restrictive lung disease. Interstitial lung disease is present. Continue verapamil for hypertension. Continue steroids for possible inflammatory component. Labs reviewed. No acute changes in CBC or BMP. Continue to monitor labs. Labs ordered for further monitoring. Restrictive lung disease Pulmonology following Steroids are present for possible inflammatory element Continue oxygen supplementation Further pulmonary function testing as an outpatient CHF with reduced EF 25% with exacerbation. Previously normal EF Cardiomyopathy This condition may be compounded by patient's hypertension and possible intrinsic lung disease Cardiology following Continue diuresis at lower dosing secondary to worsening renal function Continue oxygen supplementation ECHO with ejection fraction 25%, previously normal EF S/p Cardiac cath showing patent grafts, no lesions for intervention RHC showing high left sided filling pressures Nephrology consulted as worsening kidney function Add Coreg Hold MICHELLE-I/Spirolactone/Entresto due to kidney disease Pneumonia Possible intrinsic lung disease Pulmonary hypertension Pulmonology has been consulted Continue oxygen supplementation Continue Rocephin Continue azithromycin Follow sputum cultures Chest pain/CAD Resolved Negative cardiac workup No need for stents and cardiac catheter. Insulin-dependent diabetes mellitus Sliding scale insulin as patient nothing by mouth Monitor blood glucose Diabetic diet Acute kidney injury on chronic kidney disease Nephrology consulted, recommendations appreciated Follow renal function Diuretics decreased Avoid nephrotoxins Losartan and hydrochlorothiazide have been stopped Monitor I&Os CAD/PVD/HLD Continue aspirin and Plavix UA concerning for UTI Continue antibiotics Follow urine culture DVT prophylaxis Heparin Discussed with the patient, nurse Problem Qualifiers (1) CHF (congestive heart failure): Qualified Codes: I50.23 - Acute on chronic systolic (congestive) heart failure Sailaja Hoffmann MD Sep 20, 2017 07:39
[2017-09-20] MEDS: INSULIN ASPART SUPPLEMENTAL SCALE SQ SCH ×4 (08:00→20:59)
[2017-09-20] MEDS: FUROSEMIDE 40 MG/4 ML VIAL IV PUSH SCH ×2 (08:46→17:00)
[2017-09-20] MEDS: predniSONE 20 MG TAB PO SCH ×2 (08:47→20:55)
[2017-09-20] MEDS: guaiFENesin E.R. 600 MG TAB PO SCH ×2 (08:47→20:55)
[2017-09-20] MEDS: CARVEDILOL 3.125 MG TAB PO SCH ×2 (08:47→20:56)
[2017-09-20] MEDS: ASPIRIN 81 MG CHEW TAB CHEW SCH (08:47)
[2017-09-20] MEDS: CLOPIDOGREL 75 MG TAB PO SCH (08:47)
[2017-09-20] MEDS: TIOTROPIUM BROMIDE 18 MCG INH INH SCH (08:47)
[2017-09-20] MEDS: LORATADINE 10 MG TAB PO SCH (08:47)
[2017-09-20] MEDS: VERAPAMIL HCL 40 MG TAB PO SCH (08:48)
[2017-09-20] MEDS: SODIUM CHLORIDE 0.9% FLUSH 10 ML FLUSH IV FLUSH SCH ×2 (08:48→20:58)
[2017-09-20] MEDS: RESP: ALBUTEROL 2.5 MG/IPRATROPIUM 0.5 MG NEB (PRN) NEB ×2 (11:50→23:12)
[2017-09-20 13:02] LABS: ANA SCREEN POS (NEG)
--- NOTE | 2017-09-20 13:46 | HHI.NPPN ---
Subjective General Problems: Anemia, Edema Renal Failure: Chronic, Acute Additional Remarks Patient is alert, mild SOB, not in distress, breathing is better. Objective Data Data Vital Signs Date Time Temp Pulse Resp B/P (MAP) Pulse Ox O2 Delivery O2 Flow Rate FiO2 09/20/17 13:00 65 09/20/17 12:00 66 09/20/17 11:50 94 Nasal Cannula 2.00 09/20/17 11:15 98.1 67 18 102/55 (71) 99 09/20/17 11:00 100 Nasal Cannula 2.00 09/20/17 11:00 71 09/20/17 10:00 78 09/20/17 09:00 76 09/20/17 08:00 75 09/20/17 07:38 100 Nasal Cannula 2.00 09/20/17 07:38 98.0 75 18 144/79 (100) 100 09/20/17 07:00 74 09/20/17 06:00 76 09/20/17 05:00 80 09/20/17 04:00 88 09/20/17 03:08 93 Nasal Cannula 2.00 09/20/17 03:00 76 09/20/17 03:00 96.2 74 18 112/61 (78) 99 09/20/17 02:00 76 09/20/17 01:00 76 09/20/17 00:00 78 09/19/17 23:00 96.1 84 18 128/66 (86) 93 09/19/17 23:00 83 09/19/17 23:00 93 Nasal Cannula 2.00 09/19/17 22:00 84 09/19/17 21:00 86 09/19/17 20:00 96 Nasal Cannula 2.00 09/19/17 20:00 88 09/19/17 20:00 96.1 86 18 143/74 (97) 96 09/19/17 19:25 98 Nasal Cannula 2.00 09/19/17 19:00 86 09/19/17 18:00 87 09/19/17 17:00 84 09/19/17 16:00 84 09/19/17 15:00 97.9 100 20 129/74 (92) 98 09/19/17 15:00 88 09/19/17 15:00 98 Nasal Cannula 2.00 09/19/17 14:00 85 -: 09/19/17 0329 09/19/17 0329 Physical Exam General Appearance: No Acute Distress, Comfortable Eyes Eye Exam: Pupils Equal Throat Throat Exam: Oral Mucosa [place] & Moist Pulmonary Resp Exam: No Distress, Decreased Bases, Diminished Breath Sounds Gastrointestinal/Abdomen GI Exam: Soft, Non-Tender, Bowel Sounds Present Extremeties Extremities Exam: Moderate Edema, Pitting Edema Neurologic Neuro Exam: Alert, Awake, Oriented Psychiatric Psych Exam: Appropriate Responses Assessment/Plan Problem List: (1) Acute renal failure ICD Codes: N17.9 - Acute kidney failure, unspecified Plan: Patient has recent exposure to dye 60 cc was used during heart catheterization Patient has chronic kidney disease and acute renal failure due to fluid fluctuation possible dye-induced Urine out put is better on Lasix 40 mg BID. Urine Eosinophils negative, Renal U/S noted. Creatinine is almost same. 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
[2017-09-20] MEDS: ACETAMINOPHEN 325 MG TAB PO PRN (14:24)
[2017-09-20] MEDS: CHOLECALCIFEROL (VIT D3) 5000 UNIT CAP PO SCH (14:58)
[2017-09-20] MEDS: PARICALCITOL 1 MCG CAP PO SCH (14:58)
--- NOTE | 2017-09-20 15:04 | PD.CARD.PN ---
Subjective Subjective Remarks SOB getting better Feels better after nebulizer still No chest pain Objective Medications Current Medications Medications (Trade) Dose Ordered Sig/Briana Route Start Time Stop Time Status Last Admin (NS Flush) 2 ml UNSCH PRN IV FLUSH 09/09/17 22:00 (NS Flush) 2 ml BID IV FLUSH 09/10/17 09:00 09/20/17 08:48 (Tylenol) 650 mg Q4H PRN PO 09/09/17 22:00 09/20/17 14:24 (Zofran Inj) 4 mg Q6H PRN IVP 09/09/17 22:00 (Narcan Inj) 0.4 mg UNSCH PRN IV PUSH 09/09/17 22:00 (Milk Of Magnesia Liq) 30 ml Q12H PRN PO 09/09/17 22:00 09/15/17 20:29 (Senokot) 17.2 mg Q12H PRN PO 09/09/17 22:00 (Dulcolax Supp) 10 mg DAILY PRN RECTAL 09/09/17 22:00 (Lactulose Liq) 30 ml DAILY PRN PO 09/09/17 22:00 Ceftriaxone Sodium 1000 mg/ Sodium Chloride 100 ml @ 200 mls/hr Q24H IV 09/10/17 21:00 09/19/17 21:23 Azithromycin 250 mg/Sodium Chloride 250 ml @ 250 mls/hr Q24H IV 09/10/17 22:00 09/19/17 21:24 (D50w (Vial) Inj) 50 ml UNSCH PRN IV PUSH 09/09/17 22:15 (Glucagon Inj) 1 mg UNSCH PRN OTHER 09/09/17 22:15 (NovoLOG SUPPLEMENTAL SCALE) 1 ACHS SLIDING SCALE SQ 09/10/17 08:00 09/20/17 11:50 (Duoneb Neb) 1 ampule Q4HR NEB PRN NEB 09/10/17 02:00 09/20/17 11:50 (Aspirin Chew) 81 mg DAILY CHEW 09/11/17 09:00 09/20/17 08:47 (Plavix) 75 mg DAILY PO 09/11/17 09:00 09/20/17 08:47 (Spiriva Inh) 18 mcg DAILY INH 09/11/17 09:00 09/20/17 08:47 (Claritin) 5 mg DAILY PO 09/11/17 09:00 09/20/17 08:47 (Pill Splitter) 1 ea UNSCH PRN OTHER 09/10/17 18:00 (Albuterol Neb) 2.5 mg Q6HR NEB PRN NEB 09/15/17 19:30 09/20/17 02:42 (Mucinex Er) 600 mg BID PO 09/15/17 21:00 09/20/17 08:47 (Isoptin) 40 mg DAILY PO 09/18/17 09:00 09/20/17 08:48 (Deltasone) 20 mg BID PO 09/18/17 09:00 09/20/17 08:47 (Lasix Inj) 40 mg BID@18 IV PUSH 09/18/17 18:00 09/20/17 08:46 (Coreg) 3.125 mg Q12HR PO 09/19/17 21:00 09/20/17 08:47 (Zemplar) 1 mcg DAILY PO 09/20/17 15:00 09/20/17 14:58 (Vitamin D3) 5,000 units DAILY PO 09/20/17 15:00 09/20/17 14:58 Vital Signs / I&O Vital Signs Date Time Temp Pulse Resp B/P (MAP) Pulse Ox O2 Delivery O2 Flow Rate FiO2 09/20/17 14:00 64 09/20/17 13:00 65 09/20/17 12:00 66 09/20/17 11:50 94 Nasal Cannula 2.00 09/20/17 11:15 98.1 67 18 102/55 (71) 99 09/20/17 11:00 100 Nasal Cannula 2.00 09/20/17 11:00 71 09/20/17 10:00 78 09/20/17 09:00 76 09/20/17 08:00 75 09/20/17 07:38 100 Nasal Cannula 2.00 09/20/17 07:38 98.0 75 18 144/79 (100) 100 09/20/17 07:00 74 09/20/17 06:00 76 09/20/17 05:00 80 09/20/17 04:00 88 09/20/17 03:08 93 Nasal Cannula 2.00 09/20/17 03:00 76 09/20/17 03:00 96.2 74 18 112/61 (78) 99 09/20/17 02:00 76 09/20/17 01:00 76 09/20/17 00:00 78 09/19/17 23:00 96.1 84 18 128/66 (86) 93 09/19/17 23:00 83 09/19/17 23:00 93 Nasal Cannula 2.00 09/19/17 22:00 84 09/19/17 21:00 86 09/19/17 20:00 96 Nasal Cannula 2.00 09/19/17 20:00 88 09/19/17 20:00 96.1 86 18 143/74 (97) 96 09/19/17 19:25 98 Nasal Cannula 2.00 09/19/17 19:00 86 09/19/17 18:00 87 09/19/17 17:00 84 09/19/17 16:00 84 I/O 09/19/17 09/19/17 09/19/17 09/20/17 09/20/17 09/20/17 07:00 15:00 23:00 07:00 15:00 23:00 Intake Total 480 ml 720 ml 980 ml Output Total 310 ml 300 ml 400 ml Balance 170 ml 420 ml 580 ml Intake Oral 480 ml 720 ml 980 ml Output Urine Total 310 ml 300 ml 400 ml # Bowel Movements 1 0 2 Physical Exam GENERAL: NAD, AAOx3 SKIN: Warm and dry. HEAD: Atraumatic. Normocephalic. EYES: Pupils equal and round. No scleral icterus. No injection or drainage. ENT: No nasal bleeding or discharge. Mucous membranes pink and moist. NECK: Trachea midline. No JVD. CARDIOVASCULAR: Regular rate and rhythm. RESPIRATORY: No accessory muscle use. Decreased breath sounds bilaterally GASTROINTESTINAL: Abdomen soft, non-tender, nondistended. Hepatic and splenic margins not palpable. MUSCULOSKELETAL: Extremities without clubbing, cyanosis, or edema. No obvious deformities. Right femoral no hematoma, distal pulses intact NEUROLOGICAL: Awake and alert. No obvious cranial nerve deficits. Motor grossly within normal limits. Five out of 5 muscle strength in the arms and legs. Normal speech. PSYCHIATRIC: Appropriate mood and affect; insight and judgment normal. Assessment and Plan Problem List: (1) CHF (congestive heart failure) ICD Codes: I50.9 - Heart failure, unspecified Status: Acute (2) Chronic kidney disease ICD Codes: N18.9 - Chronic kidney disease, unspecified (3) CAD (coronary artery disease) ICD Codes: I25.10 - Atherosclerotic heart disease of [place] coronary artery without angina pectoris Assessment and Plan 1) Acute on chronic CHF Echo showing decreased EF, previously normal EF Cardiac cath showing patent grafts, no lesions for intervention RHC showing high left sided filling pressures Will need to try to keep diuresing, but not putting out much urine Will have to watch creatinine, but will have to allow permissive azotemia while diuresing, nephrology consulted for help with kidney function Coreg added No MICHELLE-I/Spirolactone/Entresto due to kidney disease 2) Rising creatinine May need to allow permissive azotemia HCTZ stopped Losartan stopped Consult nephrology 3) CAD No lesions for intervention, con't medical management Con't ASA/Plavix 4) Intrinsic lung disease Pulmonology consulted, appreciated recommendations 5) Recheck labs today 6) Concern for positive I/Os daily, going to head back to heart failure Problem Qualifiers (1) CHF (congestive heart failure): Qualified Codes: I50.23 - Acute on chronic systolic (congestive) heart failure (2) Chronic kidney disease: Qualified Codes: N18.4 - Chronic kidney disease, stage 4 (severe) Shravan Muniz DO Sep 20, 2017 15:04
[2017-09-20 16:49] LABS: BASOPHIL % 0.3 % (0.0-2.0); HEMOGLOBIN 10.4 GM/DL (11.6-15.3); LYMPH % 10.4 % (9.0-44.0); LYMPHOCYTE # 0.6 TH/MM3 (1.0-4.8); MEAN CELL VOLUME 86.3 FL (80.0-100.0); MEAN CORPUSCULAR HEMOGLOBIN 27.2 PG (27.0-34.0); MEAN CORPUSCULAR HGB CONC 31.6 % (32.0-36.0); MEAN PLATELET VOLUME 9.5 FL (7.0-11.0); MONO % 6.4 % (0.0-8.0); MONOCYTE # 0.4 TH/MM3 (0-0.9); NEUT % 82.9 % (16.0-70.0); PLATELET COUNT 225 TH/MM3 (150-450); RED BLOOD COUNT 3.82 MIL/MM3 (4.00-5.30); RED CELL DISTRIBUTION WIDTH 17.9 % (11.6-17.2)
[2017-09-20 17:00] LABS: BICARBONATE 17.4 MEQ/L (21.0-32.0); CALCIUM 8.1 MG/DL (8.5-10.1); CREATININE 4.36 MG/DL (0.50-1.00)
--- NOTE | 2017-09-20 18:44 | HHI.PR ---
Subjective Remarks 71 YOWF with COPD,CAD,CHF. decreased EF Was feeling much better but became sob with walking ABG showes hypoxia No CP PFT suggestive of severe restrictve dis Feels tired Objective Vital Signs Vital Signs Date Time Temp Pulse Resp B/P (MAP) Pulse Ox O2 Delivery O2 Flow Rate FiO2 09/20/17 18:00 65 09/20/17 17:00 66 09/20/17 16:00 64 09/20/17 15:22 100 Nasal Cannula 2.00 09/20/17 15:22 97.9 68 18 105/57 (73) 100 09/20/17 15:00 65 09/20/17 14:00 64 09/20/17 13:00 65 09/20/17 12:00 66 09/20/17 11:50 94 Nasal Cannula 2.00 09/20/17 11:15 98.1 67 18 102/55 (71) 99 09/20/17 11:00 100 Nasal Cannula 2.00 09/20/17 11:00 71 09/20/17 10:00 78 09/20/17 09:00 76 09/20/17 08:00 75 09/20/17 07:38 100 Nasal Cannula 2.00 09/20/17 07:38 98.0 75 18 144/79 (100) 100 09/20/17 07:00 74 09/20/17 06:00 76 09/20/17 05:00 80 09/20/17 04:00 88 09/20/17 03:08 93 Nasal Cannula 2.00 09/20/17 03:00 76 09/20/17 03:00 96.2 74 18 112/61 (78) 99 09/20/17 02:00 76 09/20/17 01:00 76 09/20/17 00:00 78 09/19/17 23:00 96.1 84 18 128/66 (86) 93 09/19/17 23:00 83 09/19/17 23:00 93 Nasal Cannula 2.00 09/19/17 22:00 84 09/19/17 21:00 86 09/19/17 20:00 96 Nasal Cannula 2.00 09/19/17 20:00 88 09/19/17 20:00 96.1 86 18 143/74 (97) 96 09/19/17 19:25 98 Nasal Cannula 2.00 09/19/17 19:00 86 I/O 09/19/17 09/19/17 09/19/17 09/20/17 09/20/17 09/20/17 07:00 15:00 23:00 07:00 15:00 23:00 Intake Total 480 ml 720 ml 980 ml 720 ml Output Total 310 ml 300 ml 400 ml 400 ml Balance 170 ml 420 ml 580 ml 320 ml Intake Oral 480 ml 720 ml 980 ml 720 ml Output Urine Total 310 ml 300 ml 400 ml 400 ml # Bowel Movements 1 0 2 1 Result Diagram: 09/20/17 1618 09/20/17 1618 Objective Remarks GENERAL: MBMN WF, mild sob SKIN: Warm and dry. HEAD: Normocephalic. EYES: No scleral icterus. No injection or drainage. NECK: Supple, trachea midline. No JVD or lymphadenopathy. CARDIOVASCULAR: Regular rate and rhythm without murmurs, gallops, or rubs. RESPIRATORY: Breath sounds equal bilaterally. No accessory muscle use. GASTROINTESTINAL: Abdomen soft, non-tender, nondistended. MUSCULOSKELETAL: No cyanosis, or edema. BACK: Nontender without obvious deformity. No CVA tenderness. A/P Assessment and Plan COPD Hypoxia CHF CAD Decreased EF Anxiety PLAN: Aerosol nebs Diurease Monitor lytes Supplement 02 Will need complete PFT with diffusion and lung volumes as out pt OOB and ambulate Nilesh Rossi MD Sep 20, 2017 18:44
[2017-09-20] MEDS: cefTRIAXone INJ 1,000 MG in SODIUM CHLORIDE 0.9% INJ 100 ML IV SCH (21:39)
[2017-09-20] MEDS: AZITHROMYCIN INJ 250 MG in SODIUM CHLOR 0.9% 250 ML INJ 250 ML IV SCH (23:31)
[2017-09-21] VITALS (29 sets, daily range): BP systolic 90–159; BP diastolic 52–89; PULSE 60–85; RESP 17–20; TEMP 97.5–98.4; O2SAT 93–99
[2017-09-21] MEDS: ACETAMINOPHEN 325 MG TAB PO PRN (00:46)
[2017-09-21 05:39] LABS: BICARBONATE 19.4 MEQ/L (21.0-32.0); CALCIUM 8.3 MG/DL (8.5-10.1); CREATININE 4.35 MG/DL (0.50-1.00)
[2017-09-21] MEDS: INSULIN ASPART SUPPLEMENTAL SCALE SQ SCH ×4 (08:00→21:00)
[2017-09-21] MEDS: PARICALCITOL 1 MCG CAP PO SCH (09:00)
[2017-09-21] MEDS: LORATADINE 10 MG TAB PO SCH (09:00)
[2017-09-21] MEDS: CHOLECALCIFEROL (VIT D3) 5000 UNIT CAP PO SCH (09:00)
[2017-09-21] MEDS: ASPIRIN 81 MG CHEW TAB CHEW SCH (09:00)
[2017-09-21] MEDS: CARVEDILOL 3.125 MG TAB PO SCH ×2 (09:00→22:01)
[2017-09-21] MEDS: guaiFENesin E.R. 600 MG TAB PO SCH ×2 (09:00→22:01)
[2017-09-21] MEDS: CLOPIDOGREL 75 MG TAB PO SCH (09:00)
[2017-09-21] MEDS: FUROSEMIDE 40 MG/4 ML VIAL IV PUSH SCH ×2 (09:01→17:07)
[2017-09-21] MEDS: VERAPAMIL HCL 40 MG TAB PO SCH (09:01)
[2017-09-21] MEDS: predniSONE 20 MG TAB PO SCH ×2 (09:01→22:01)
[2017-09-21] MEDS: SODIUM CHLORIDE 0.9% FLUSH 10 ML FLUSH IV FLUSH SCH ×2 (09:01→22:01)
[2017-09-21] MEDS: TIOTROPIUM BROMIDE 18 MCG INH INH SCH (09:03)
[2017-09-21] MEDS: RESP: ALBUTEROL 2.5 MG/IPRATROPIUM 0.5 MG NEB (PRN) NEB (11:08)
[2017-09-21] MEDS ORDERED: SODIUM CHLOR 0.9% 1000 ML INJ 1,000 ML OTHER PRN ×2 (12:34)
[2017-09-21] MEDS ORDERED: SODIUM CHLOR 0.9% 1000 ML INJ 1,000 ML IV PRN (12:34)
--- NOTE | 2017-09-21 12:40 | HHI.NPPN ---
Subjective General Problems: Anemia, Edema Renal Failure: Chronic, Acute Additional Remarks Patient is alert, increasing SOB,N/V, edema Objective Data Data 09/21/17 09/22/17 19:00 07:00 # Bowel Movements 1 Vital Signs Date Time Temp Pulse Resp B/P (MAP) Pulse Ox O2 Delivery O2 Flow Rate FiO2 09/21/17 12:00 60 09/21/17 11:09 96 Nasal Cannula 2.00 09/21/17 11:08 97.5 66 20 132/52 (78) 96 09/21/17 11:00 65 09/21/17 10:00 68 09/21/17 09:00 72 09/21/17 08:03 95 Nasal Cannula 3.00 09/21/17 08:00 73 09/21/17 07:27 100 Nasal Cannula 2.00 09/21/17 07:19 97.9 72 20 146/69 (94) 97 09/21/17 07:00 72 09/21/17 06:11 71 09/21/17 05:12 65 09/21/17 04:00 65 09/21/17 03:36 98.4 67 18 124/61 (82) 99 09/21/17 03:13 99 Nasal Cannula 2.00 09/21/17 03:00 63 09/21/17 02:00 63 09/21/17 01:00 64 09/21/17 00:00 98.2 65 20 90/53 (65) 98 09/21/17 00:00 65 09/20/17 23:07 99 Nasal Cannula 2.00 09/20/17 23:00 66 09/20/17 22:00 66 09/20/17 21:00 71 09/20/17 20:00 68 09/20/17 20:00 98.4 67 20 105/55 (72) 99 09/20/17 20:00 99 Nasal Cannula 2.00 09/20/17 19:46 96 Nasal Cannula 2.00 09/20/17 19:00 67 09/20/17 18:00 65 09/20/17 17:00 66 09/20/17 16:00 64 09/20/17 15:22 100 Nasal Cannula 2.00 09/20/17 15:22 97.9 68 18 105/57 (73) 100 09/20/17 15:00 65 09/20/17 14:00 64 09/20/17 13:00 65 -: 09/20/17 1618 09/21/17 0450 Physical Exam General Appearance: No Acute Distress, Comfortable Eyes Eye Exam: Pupils Equal Throat Throat Exam: Oral Mucosa [place] & Moist Pulmonary Resp Exam: No Distress, Crackles, Rhonchi, Decreased Bases, Diminished Breath Sounds Gastrointestinal/Abdomen GI Exam: Soft, Non-Tender, Bowel Sounds Present Extremeties Extremities Exam: Moderate Edema, Pitting Edema Neurologic Neuro Exam: Alert, Awake, Oriented Psychiatric Psych Exam: Appropriate Responses Assessment/Plan Problem List: (1) Acute renal failure ICD Codes: N17.9 - Acute kidney failure, unspecified Plan: Patient has recent exposure to dye 60 cc was used during heart catheterization Patient has chronic kidney disease and acute renal failure due to fluid fluctuation possible dye-induced on Lasix 40 mg BID. GFR 10 has ARF/CKD not resolving and she is more symptomatic UOP 600 cc only d/w patient she need dialysis as uremia is more symptomatic not responding [facility] once Vascath is in start Vitamin D supplements, Zemplar for HPTH (2) Chronic kidney disease ICD Codes: N18.9 - Chronic kidney disease, unspecified (3) CHF (congestive heart failure) ICD Codes: I50.9 - Heart failure, unspecified Status: Acute Plan: Cardiology following on diuretic (4) CAD (coronary artery disease) ICD Codes: I25.10 - Atherosclerotic heart disease of [place] coronary artery without angina pectoris Plan: previous CABG (5) Insulin dependent diabetes mellitus ICD Codes: E11.9 - Type 2 diabetes mellitus without complications; Z79.4 - halfway (current) use of insulin Plan: follow BG Problem Qualifiers (1) Chronic kidney disease: Qualified Codes: N18.4 - Chronic kidney disease, stage 4 (severe) (2) CHF (congestive heart failure): Qualified Codes: I50.23 - Acute on chronic systolic (congestive) heart failure Ehsan Cano MD Sep 21, 2017 12:40
[2017-09-21] MEDS ORDERED: cloNIDine HCL 0.1 MG TAB PO PRN (12:45)
[2017-09-21] MEDS ORDERED: EPOETIN ALFA 10,000 UNITS/ML VIAL IV PUSH PRN (12:45)
[2017-09-21] MEDS ORDERED: GENTAMICIN SULFATE 20 MG/2 ML VIAL OTHER PRN (12:45)
[2017-09-21] MEDS ORDERED: ONDANSETRON HCL 4 MG/2 ML VIAL IV PUSH PRN (12:45)
[2017-09-21] MEDS ORDERED: SODIUM CHLORIDE 0.9% FLUSH 10 ML FLUSH IV FLUSH PRN ×2 (12:45→15:45)
[2017-09-21] MEDS ORDERED: HEPARIN SODIUM - IV 10,000 UNITS/10 ML VIAL IV FLUSH PRN (12:45)
[2017-09-21] MEDS ORDERED: ACETAMINOPHEN 325 MG TAB PO PRN (12:45)
[2017-09-21] MEDS ORDERED: MANNITOL 12.5 GM/50 ML VIAL IV PRN (12:45)
[2017-09-21] MEDS ORDERED: ALBUMIN 25% INJ 100 ML IV PRN (12:45)
[2017-09-21] MEDS ORDERED: NITROGLYCERIN 0.4 MG SL 25 TABS/BTL SL PRN (12:45)
[2017-09-21] MEDS ORDERED: GELATIN 12 MM/7 MM FOAM TOP PRN (12:45)
[2017-09-21] MEDS ORDERED: diphenhydrAMINE HCL 25 MG CAP PO PRN (12:45)
--- NOTE | 2017-09-21 15:35 | PD.RAD ---
Post Procedure Progress Note Pre Procedure Diagnosis: (1) Acute renal failure (2) CHF (congestive heart failure) Post Procedure Diagnosis: (1) Acute renal failure (2) CHF (congestive heart failure) Procedure Date: Sep 21, 2017 Supervising Radiologist: Bernard Duque Estimated blood loss: 3cc Anesthesia: Local Plan of Activity Patient to Unit: Nursing Unit Patient Condition: Poor Additional Comments: Vascath placed via the right IJ. Catheter in good position OK for use See PACS Report for procedural detail/treatment Bernard Duque MD Sep 21, 2017 15:34
[2017-09-21] MEDS ORDERED: HEPARIN SODIUM - IV 2,000 UNITS/2 ML VIAL IV FLUSH PRN (15:45)
--- NOTE | 2017-09-21 16:12 | RADRPT ---
EXAM DATE/TIME: 09/21/2017 15:00 [place] COMPARISON: No previous studies available for comparison. INDICATIONS : Patient repports a 3 to 4 mos of progressivley shortness of breath. MEDICAL HISTORY : 1. CHF 2. COPD 3. DM 4. CAD 5. CKD 6. PVD HLD SURGICAL HISTORY : 1. CABG x3 2. stent x1 3. Leg stent ENCOUNTER: Initial ACUITY: 3 months PAIN SCORE: 0/10 FLUORO TIME: 0.2 minutes IMAGE SERIES: 1 ACCESS: Right internal jugular vein DEVICE(S): 1.) 14 [place] dual lumen 15 cm Schon catheter PROCEDURE : 1. Ultrasound guided venipuncture. 2. Fluoroscopic guidance. 3. Central line placement. The risks, benefits and alternatives to the procedure were explained and verbal and written consent w as obtained. The site was prepped in sterile fashion. Full sterile technique was used, including ca p, mask, sterile gloves and gown and a large sterile sheet. Hand hygiene and 2% chlorhexidine prep w as utilized per protocol for cutaneous antisepsis with appropriate dry time for site. Sterile gel an d sterile probe cover were utilized for ultrasound guidance. The skin and subcutaneous tissues were infiltrated with local anesthetic solution. A suitable site a nahid the vein was selected with ultrasound and fluoroscopic guidance. A small incision was made. Th e right internal jugular vein was accessed under direct ultrasound visualization using the micropunct ure technique. The micropuncture set was exchanged for a 0.035 wire. The tract was dilated. The ca theter was advanced into position under direct fluoroscopic visualization. The catheter was fixed in place with suture and a sterile dressing was applied. The patient tolerated the procedure well and there were no complications. CONCLUSION: Uncomplicated vas catheter placement via the right internal jugular vein. Bernard Duque MD on September 21, 2017 at 16:06 Board Certified Radiologist. This report was verified electronically.
--- NOTE | 2017-09-21 18:05 | PD.CARD.PN ---
Subjective Subjective Remarks Patient was seen earlier today, late entry SOB getting better Feels better after nebulizer still No chest pain Kidney function worse Objective Medications Current Medications Medications (Trade) Dose Ordered Sig/Briana Route Start Time Stop Time Status Last Admin (NS Flush) 2 ml UNSCH PRN IV FLUSH 09/09/17 22:00 (NS Flush) 2 ml BID IV FLUSH 09/10/17 09:00 09/21/17 09:01 (Tylenol) 650 mg Q4H PRN PO 09/09/17 22:00 09/21/17 00:46 (Zofran Inj) 4 mg Q6H PRN IVP 09/09/17 22:00 (Narcan Inj) 0.4 mg UNSCH PRN IV PUSH 09/09/17 22:00 (Milk Of Magnesia Liq) 30 ml Q12H PRN PO 09/09/17 22:00 09/15/17 20:29 (Senokot) 17.2 mg Q12H PRN PO 09/09/17 22:00 (Dulcolax Supp) 10 mg DAILY PRN RECTAL 09/09/17 22:00 (Lactulose Liq) 30 ml DAILY PRN PO 09/09/17 22:00 Ceftriaxone Sodium 1000 mg/ Sodium Chloride 100 ml @ 200 mls/hr Q24H IV 09/10/17 21:00 09/20/17 21:39 Azithromycin 250 mg/Sodium Chloride 250 ml @ 250 mls/hr Q24H IV 09/10/17 22:00 09/20/17 23:31 (D50w (Vial) Inj) 50 ml UNSCH PRN IV PUSH 09/09/17 22:15 (Glucagon Inj) 1 mg UNSCH PRN OTHER 09/09/17 22:15 (NovoLOG SUPPLEMENTAL SCALE) 1 ACHS SLIDING SCALE SQ 09/10/17 08:00 09/20/17 16:59 (Duoneb Neb) 1 ampule Q4HR NEB PRN NEB 09/10/17 02:00 09/21/17 11:08 (Aspirin Chew) 81 mg DAILY CHEW 09/11/17 09:00 09/21/17 09:00 (Plavix) 75 mg DAILY PO 09/11/17 09:00 09/21/17 09:00 (Spiriva Inh) 18 mcg DAILY INH 09/11/17 09:00 09/21/17 09:03 (Claritin) 5 mg DAILY PO 09/11/17 09:00 09/21/17 09:00 (Pill Splitter) 1 ea UNSCH PRN OTHER 09/10/17 18:00 (Albuterol Neb) 2.5 mg Q6HR NEB PRN NEB 09/15/17 19:30 09/20/17 02:42 (Mucinex Er) 600 mg BID PO 09/15/17 21:00 09/21/17 09:00 (Isoptin) 40 mg DAILY PO 09/18/17 09:00 09/21/17 09:01 (Deltasone) 20 mg BID PO 09/18/17 09:00 09/21/17 09:01 (Lasix Inj) 40 mg BID@ IV PUSH 09/18/17 18:00 09/21/17 17:07 (Coreg) 3.125 mg Q12HR PO 09/19/17 21:00 09/21/17 09:00 (Zemplar) 1 mcg DAILY PO 09/20/17 15:00 09/21/17 09:00 (Vitamin D3) 5,000 units DAILY PO 09/20/17 15:00 09/20/17 14:58 Sodium Chloride 1,000 ml @ 0 mls/hr Q0M PRN OTHER 09/21/17 12:34 (Heparin Inj) 8,000 units UNSCH PRN IV FLUSH 09/21/17 12:45 Sodium Chloride 1,000 ml @ 200 mls/hr Q5H PRN IV 09/21/17 12:34 Sodium Chloride 1,000 ml @ 0 mls/hr Q0M PRN OTHER 09/21/17 12:34 (Mannitol Inj) 12.5 gm UNSCH PRN IV 09/21/17 12:45 Albumin Human 100 ml @ 60 mls/hr UNSCH PRN IV 09/21/17 12:45 (NS Flush) 5 ml UNSCH PRN IV FLUSH 09/21/17 12:45 (Heparin Inj) UNSCH PRN .XX 09/21/17 12:45 (Gentamicin Inj) 20 mg UNSCH PRN OTHER 09/21/17 12:45 (Zofran Inj) 4 mg UNSCH PRN IV PUSH 09/21/17 12:45 (Tylenol) 650 mg UNSCH PRN PO 09/21/17 12:45 (Benadryl) 25 mg UNSCH PRN PO 09/21/17 12:45 (Nitrostat Sl) 0.4 mg UNSCH PRN SL 09/21/17 12:45 (Catapres) 0.1 mg UNSCH PRN PO 09/21/17 12:45 (Epogen Inj) 4,000 units UNSCH PRN IV PUSH 09/21/17 12:45 (Gelfoam 12 Mm/7 Mm Top) 1 foam UNSCH PRN TOP 09/21/17 12:45 (NS Flush) UNSCH PRN IV FLUSH 09/21/17 15:45 (Heparin Inj) UNSCH PRN IV FLUSH 09/21/17 15:45 Vital Signs / I&O Vital Signs Date Time Temp Pulse Resp B/P (MAP) Pulse Ox O2 Delivery O2 Flow Rate FiO2 09/21/17 18:00 70 09/21/17 17:00 68 09/21/17 16:00 67 09/21/17 15:34 96 Nasal Cannula 2.00 09/21/17 15:12 97.7 63 20 147/89 (108) 96 09/21/17 15:00 65 09/21/17 14:00 64 09/21/17 13:00 62 09/21/17 12:00 60 09/21/17 11:09 96 Nasal Cannula 2.00 09/21/17 11:08 97.5 66 20 132/52 (78) 96 09/21/17 11:00 65 09/21/17 10:00 68 09/21/17 09:00 72 09/21/17 08:03 95 Nasal Cannula 3.00 09/21/17 08:00 73 09/21/17 07:27 100 Nasal Cannula 2.00 09/21/17 07:19 97.9 72 20 146/69 (94) 97 09/21/17 07:00 72 09/21/17 06:11 71 09/21/17 05:12 65 09/21/17 04:00 65 09/21/17 03:36 98.4 67 18 124/61 (82) 99 09/21/17 03:13 99 Nasal Cannula 2.00 09/21/17 03:00 63 09/21/17 02:00 63 09/21/17 01:00 64 09/21/17 00:00 98.2 65 20 90/53 (65) 98 09/21/17 00:00 65 09/20/17 23:07 99 Nasal Cannula 2.00 09/20/17 23:00 66 09/20/17 22:00 66 09/20/17 21:00 71 09/20/17 20:00 68 09/20/17 20:00 98.4 67 20 105/55 (72) 99 09/20/17 20:00 99 Nasal Cannula 2.00 09/20/17 19:46 96 Nasal Cannula 2.00 09/20/17 19:00 67 I/O 09/20/17 09/20/17 09/20/17 09/21/17 09/21/17 09/21/17 06:59 14:59 22:59 06:59 14:59 22:59 Intake Total 980 ml 720 ml 240 ml 720 ml Output Total 400 ml 400 ml 200 ml 400 ml Balance 580 ml 320 ml 40 ml 320 ml Intake Oral 980 ml 720 ml 240 ml 720 ml Output Urine Total 400 ml 400 ml 200 ml 400 ml # Bowel Movements 2 1 1 1 Physical Exam GENERAL: NAD, AAOx3 SKIN: Warm and dry. HEAD: Atraumatic. Normocephalic. EYES: Pupils equal and round. No scleral icterus. No injection or drainage. ENT: No nasal bleeding or discharge. Mucous membranes pink and moist. NECK: Trachea midline. No JVD. CARDIOVASCULAR: Regular rate and rhythm. RESPIRATORY: No accessory muscle use. Decreased breath sounds bilaterally GASTROINTESTINAL: Abdomen soft, non-tender, nondistended. Hepatic and splenic margins not palpable. MUSCULOSKELETAL: Extremities without clubbing, cyanosis, or edema. No obvious deformities. Right femoral no hematoma, distal pulses intact NEUROLOGICAL: Awake and alert. No obvious cranial nerve deficits. Motor grossly within normal limits. Five out of 5 muscle strength in the arms and legs. Normal speech. PSYCHIATRIC: Appropriate mood and affect; insight and judgment normal. Laboratory Laboratory Tests Test 09/21/17 04:50 Blood Urea Nitrogen 80 MG/DL Creatinine 4.35 MG/DL Random Glucose 96 MG/DL Calcium Level 8.3 MG/DL Sodium Level 134 MEQ/L Potassium Level 5.0 MEQ/L Chloride Level 101 MEQ/L Carbon Dioxide Level 19.4 MEQ/L Anion Gap 14 MEQ/L Estimat Glomerular Filtration Rate 10 ML/MIN Imaging Last 24 hours Impressions Catheter Placement X-Ray 09/21/17 0000 Signed Impressions: Service Date/Time: Thursday, September 21, 2017 15:00 - CONCLUSION: Uncomplicated vas catheter placement via the right internal jugular vein. Bernard Duque MD Assessment and Plan Problem List: (1) CHF (congestive heart failure) ICD Codes: I50.9 - Heart failure, unspecified Status: Acute (2) Chronic kidney disease ICD Codes: N18.9 - Chronic kidney disease, unspecified (3) CAD (coronary artery disease) ICD Codes: I25.10 - Atherosclerotic heart disease of [place] coronary artery without angina pectoris Assessment and Plan 1) Acute on chronic CHF Echo showing decreased EF, previously normal EF Cardiac cath showing patent grafts, no lesions for intervention RHC showing high left sided filling pressures Coreg added No MICHELLE-I/Spirolactone/Entresto due to kidney disease 2) Rising creatinine Discussed with nephrology, planning on HD 3) CAD No lesions for intervention, con't medical management Con't ASA/Plavix 4) Intrinsic lung disease Pulmonology consulted, appreciated recommendations 5) Concern for positive I/Os daily, going to head back to heart failure Hopefully will be helped with HD Problem Qualifiers (1) CHF (congestive heart failure): Qualified Codes: I50.23 - Acute on chronic systolic (congestive) heart failure (2) Chronic kidney disease: Qualified Codes: N18.4 - Chronic kidney disease, stage 4 (severe) Shravan Muniz DO Sep 21, 2017 18:05
--- NOTE | 2017-09-21 18:19 | HHI.PR ---
Subjective Remarks The patient is in bed, she appears sleepy. Says she is very tired. Film associated in the morning and not able to eat, no vomiting no diarrhea or constipation. Denies chest pain. Shortness of breath with some improvement. No fever chills. Objective Vitals Vital Signs Date Time Temp Pulse Resp B/P (MAP) Pulse Ox O2 Delivery O2 Flow Rate FiO2 09/21/17 18:00 70 09/21/17 17:00 68 09/21/17 16:00 67 09/21/17 15:34 96 Nasal Cannula 2.00 09/21/17 15:12 97.7 63 20 147/89 (108) 96 09/21/17 15:00 65 09/21/17 14:00 64 09/21/17 13:00 62 09/21/17 12:00 60 09/21/17 11:09 96 Nasal Cannula 2.00 09/21/17 11:08 97.5 66 20 132/52 (78) 96 09/21/17 11:00 65 09/21/17 10:00 68 09/21/17 09:00 72 09/21/17 08:03 95 Nasal Cannula 3.00 09/21/17 08:00 73 09/21/17 07:27 100 Nasal Cannula 2.00 09/21/17 07:19 97.9 72 20 146/69 (94) 97 09/21/17 07:00 72 09/21/17 06:11 71 09/21/17 05:12 65 09/21/17 04:00 65 09/21/17 03:36 98.4 67 18 124/61 (82) 99 09/21/17 03:13 99 Nasal Cannula 2.00 09/21/17 03:00 63 09/21/17 02:00 63 09/21/17 01:00 64 09/21/17 00:00 98.2 65 20 90/53 (65) 98 09/21/17 00:00 65 09/20/17 23:07 99 Nasal Cannula 2.00 09/20/17 23:00 66 09/20/17 22:00 66 09/20/17 21:00 71 09/20/17 20:00 68 09/20/17 20:00 98.4 67 20 105/55 (72) 99 09/20/17 20:00 99 Nasal Cannula 2.00 2/12/18 19:46 96 Nasal Cannula 2.00 09/20/17 19:00 67 I/O 09/20/17 09/20/17 09/20/17 09/21/17 09/21/17 09/21/17 07:00 15:00 23:00 07:00 15:00 23:00 Intake Total 980 ml 720 ml 240 ml 720 ml Output Total 400 ml 400 ml 200 ml 400 ml Balance 580 ml 320 ml 40 ml 320 ml Intake Oral 980 ml 720 ml 240 ml 720 ml Output Urine Total 400 ml 400 ml 200 ml 400 ml # Bowel Movements 2 1 1 1 Result Diagram: 09/20/17 1618 09/21/17 0450 Imaging Last Impressions Catheter Placement X-Ray 09/21/17 0000 Signed Impressions: Service Date/Time: Thursday, September 21, 2017 15:00 - CONCLUSION: Uncomplicated vas catheter placement via the right internal jugular vein. Bernard Duque MD Renal Ultrasound 09/17/17 0000 Signed Impressions: Service Date/Time: Sunday, September 17, 2017 18:45 - CONCLUSION: 1. No evidence of hydronephrosis. 2. There is some mild increased echogenicity of the renal parenchyma bilaterally. 3. There appears to be a 3 mm nonobstructing stone in each kidney. Gerry Jernigan MD Chest X-Ray 09/09/17 191 Signed Impressions: Service Date/Time: September 19:42 - CONCLUSION: Small bilateral pleural effusions. Bibasilar atelectasis and/or infiltrates. Mild cardiomegaly. Everett Matute MD Objective Remarks GENERAL: female sitting up in bed in mild distress SKIN: No rashes, ecchymoses or lesions. Cool and dry. HEAD: Atraumatic. Normocephalic. No temporal or scalp tenderness. EYES: Pupils equal round and reactive. Extraocular motions intact. No scleral icterus. No injection or drainage. ENT: Nose without bleeding, purulent drainage or septal hematoma. Throat without erythema, tonsillar hypertrophy or exudate. Uvula midline. Airway patent. NECK: Trachea midline. No JVD or lymphadenopathy. Supple, nontender, no meningeal signs. CARDIOVASCULAR: Regular rate and rhythm without murmurs, gallops, or rubs. RESPIRATORY: Bilateral crackles. Decreased breath sounds bilaterally in the lower lobes GASTROINTESTINAL: Abdomen soft, non-tender, nondistended. No hepato-splenomegaly , or palpable masses. No guarding. MUSCULOSKELETAL: 2+ pitting edema to the mid shins. No calf tenderness. Left foot amputation NEUROLOGICAL: Awake and alert. Cranial nerves II through XII intact. Motor and sensory grossly within normal limits. Normal speech. A/P Problem List: (1) CHF (congestive heart failure) ICD Code: I50.9 - Heart failure, unspecified Status: Acute (2) Pneumonia ICD Code: J18.9 - Pneumonia, unspecified organism Status: Acute (3) CAD (coronary artery disease) ICD Code: I25.10 - Atherosclerotic heart disease of [place] coronary artery without angina pectoris (4) Insulin dependent diabetes mellitus ICD Code: E11.9 - Type 2 diabetes mellitus without complications; Z79.4 - [place] (current) use of insulin (5) Chronic kidney disease ICD Code: N18.9 - Chronic kidney disease, unspecified (6) Acute renal failure ICD Code: N17.9 - Acute kidney failure, unspecified Assessment and Plan 71-year-old female admitted secondary to CHF exacerbation. Found to have severe restrictive lung disease. Interstitial lung disease is present. Continue verapamil for hypertension. Received steroids for possible inflammatory component. Labs reviewed. No acute changes in CBC or BMP. Continue to monitor labs. Labs ordered for further monitoring. Restrictive lung disease Pulmonology following Received Steroids for possible inflammatory element Continue oxygen supplementation Further pulmonary function testing as an outpatient CHF with reduced EF 25% with exacerbation. Previously normal EF Cardiomyopathy This condition may be compounded by patient's hypertension and possible intrinsic lung disease Cardiology following Continue diuresis at lower dosing secondary to worsening renal function Continue oxygen supplementation ECHO with ejection fraction 25%, previously normal EF S/p Cardiac cath showing patent grafts, no lesions for intervention RHC showing high left sided filling pressures Nephrology consulted as worsening kidney function Added Coreg Hold MICHELLE-I/Spirolactone/Entresto due to kidney disease UOP not that great as diuretics decreased per nephro patient with worsening kidney function Pneumonia Possible intrinsic lung disease Pulmonary hypertension Pulmonology has been consulted Continue oxygen supplementation Continue Rocephin Continue azithromycin Follow sputum cultures Chest pain/CAD Resolved Negative cardiac workup No need for stents and cardiac catheter. Insulin-dependent diabetes mellitus Sliding scale insulin as patient nothing by mouth Monitor blood glucose Diabetic diet Acute kidney injury on chronic kidney disease Nephrology consulted, recommendations appreciated Follow renal function Diuretics decreased Avoid nephrotoxins Losartan and hydrochlorothiazide have been stopped Monitor I&Os CAD/PVD/HLD Continue aspirin and Plavix UA concerning for UTI Continue antibiotics Follow urine culture DVT prophylaxis Heparin Discussed with the patient, nurse Problem Qualifiers (1) CHF (congestive heart failure): Qualified Codes: I50.23 - Acute on chronic systolic (congestive) heart failure (2) Chronic kidney disease: Qualified Codes: N18.4 - Chronic kidney disease, stage 4 (severe) Sailaja Hoffmann MD Sep 21, 2017 18:19
--- NOTE | 2017-09-21 18:24 | HHI.PR ---
Subjective Remarks 71 YOWF with COPD,CAD,CHF. decreased EF Was feeling much better but became sob with walking ABG showes hypoxia No CP PFT suggestive of severe restrictve dis Feels tired Had Vascath placed Objective Vital Signs Vital Signs Date Time Temp Pulse Resp B/P (MAP) Pulse Ox O2 Delivery O2 Flow Rate FiO2 09/21/17 18:00 70 09/21/17 17:00 68 09/21/17 16:00 67 09/21/17 15:34 96 Nasal Cannula 2.00 09/21/17 15:12 97.7 63 20 147/89 (108) 96 09/21/17 15:00 65 09/21/17 14:00 64 09/21/17 13:00 62 09/21/17 12:00 60 09/21/17 11:09 96 Nasal Cannula 2.00 09/21/17 11:08 97.5 66 20 132/52 (78) 96 09/21/17 11:00 65 09/21/17 10:00 68 09/21/17 09:00 72 09/21/17 08:03 95 Nasal Cannula 3.00 09/21/17 08:00 73 09/21/17 07:27 100 Nasal Cannula 2.00 09/21/17 07:19 97.9 72 20 146/69 (94) 97 09/21/17 07:00 72 09/21/17 06:11 71 09/21/17 05:12 65 09/21/17 04:00 65 09/21/17 03:36 98.4 67 18 124/61 (82) 99 09/21/17 03:13 99 Nasal Cannula 2.00 09/21/17 03:00 63 09/21/17 02:00 63 09/21/17 01:00 64 09/21/17 00:00 98.2 65 20 90/53 (65) 98 09/21/17 00:00 65 09/20/17 23:07 99 Nasal Cannula 2.00 09/20/17 23:00 66 09/20/17 22:00 66 09/20/17 21:00 71 09/20/17 20:00 68 09/20/17 20:00 98.4 67 20 105/55 (72) 99 09/20/17 20:00 99 Nasal Cannula 2.00 09/20/17 19:46 96 Nasal Cannula 2.00 09/20/17 19:00 67 I/O 09/20/17 09/20/17 09/20/17 09/21/17 09/21/17 09/21/17 07:00 15:00 23:00 07:00 15:00 23:00 Intake Total 980 ml 720 ml 240 ml 720 ml Output Total 400 ml 400 ml 200 ml 400 ml Balance 580 ml 320 ml 40 ml 320 ml Intake Oral 980 ml 720 ml 240 ml 720 ml Output Urine Total 400 ml 400 ml 200 ml 400 ml # Bowel Movements 2 1 1 1 Result Diagram: 09/20/17 1618 09/21/17 0450 Objective Remarks GENERAL: MBMN WF, mild sob SKIN: Warm and dry. HEAD: Normocephalic. EYES: No scleral icterus. No injection or drainage. NECK: Supple, trachea midline. No JVD or lymphadenopathy. CARDIOVASCULAR: Regular rate and rhythm without murmurs, gallops, or rubs. RESPIRATORY: Breath sounds equal bilaterally. No accessory muscle use. GASTROINTESTINAL: Abdomen soft, non-tender, nondistended. MUSCULOSKELETAL: No cyanosis, or edema. BACK: Nontender without obvious deformity. No CVA tenderness. A/P Assessment and Plan COPD Hypoxia CHF CAD Decreased EF Anxiety renal failure PLAN: Aerosol nebs Diurease Monitor lytes Supplement 02 Will need complete PFT with diffusion and lung volumes as out pt OOB and ambulate HD tonight Nilesh Rossi MD Sep 21, 2017 18:24
[2017-09-21] MEDS: HEPARIN SODIUM - IV 10,000 UNITS/10 ML VIAL PRN (20:36)
[2017-09-21] MEDS: AZITHROMYCIN INJ 250 MG in SODIUM CHLOR 0.9% 250 ML INJ 250 ML IV SCH (22:00)
[2017-09-21] MEDS: cefTRIAXone INJ 1,000 MG in SODIUM CHLORIDE 0.9% INJ 100 ML IV SCH (22:01)
[2017-09-22] VITALS (26 sets, daily range): BP systolic 124–147; BP diastolic 54–67; PULSE 73–87; RESP 18–20; TEMP 97.3–98.3; O2SAT 92–97
[2017-09-22] MEDS: RESP: ALBUTEROL 2.5 MG/IPRATROPIUM 0.5 MG NEB (PRN) NEB ×3 (04:10→20:31)
--- NOTE | 2017-09-22 04:32 | RADRPT ---
EXAM DATE/TIME: 09/22/2017 03:37 [facility] COMPARISON: CHEST SINGLE AP, September 09, 2017, 19:42. INDICATIONS : Short of breath. MEDICAL HISTORY : None. SURGICAL HISTORY : CABG. ENCOUNTER: Subsequent ACUITY: 2 days PAIN SCORE: 0/10 LOCATION: Bilateral chest FINDINGS: Partially layering effusions and shallow lung volumes are noted. Cardiomegaly, sternotomy wires and c lips, aortic calcification and basilar consolidation identified. CONCLUSION: Layering effusions and consolidation. Nic Christianson MD on September 22, 2017 at 4:30 Board Certified Radiologist. This report was verified electronically.
[2017-09-22 05:23] LABS: AUTOMATED NEUTROPHIL # 7.3 TH/MM3 (1.8-7.7); BASOPHIL % 0.1 % (0.0-2.0); HEMATOCRIT 33.7 % (35.0-46.0); HEMOGLOBIN 10.9 GM/DL (11.6-15.3); LYMPH % 6.7 % (9.0-44.0); LYMPHOCYTE # 0.6 TH/MM3 (1.0-4.8); MEAN CELL VOLUME 85.1 FL (80.0-100.0); MEAN CORPUSCULAR HEMOGLOBIN 27.5 PG (27.0-34.0); MEAN CORPUSCULAR HGB CONC 32.3 % (32.0-36.0); MEAN PLATELET VOLUME 9.3 FL (7.0-11.0); MONO % 9.2 % (0.0-8.0); MONOCYTE # 0.8 TH/MM3 (0-0.9); PLATELET COUNT 327 TH/MM3 (150-450); RED BLOOD COUNT 3.96 MIL/MM3 (4.00-5.30); RED CELL DISTRIBUTION WIDTH 18.1 % (11.6-17.2); WHITE BLOOD COUNT 8.7 TH/MM3 (4.0-11.0)
[2017-09-22 05:49] LABS: ALBUMIN 2.8 GM/DL (3.4-5.0); BICARBONATE 21.2 MEQ/L (21.0-32.0); CALCIUM 8.2 MG/DL (8.5-10.1); CREATININE 3.27 MG/DL (0.50-1.00); PHOSPHORUS 5.8 MG/DL (2.5-4.9)
[2017-09-22] MEDS: INSULIN ASPART SUPPLEMENTAL SCALE SQ SCH ×4 (08:00→20:28)
--- NOTE | 2017-09-22 08:20 | HHI.PR ---
Subjective Remarks Was seen in dialysis. She feels short of breath, feels very tired and was not able to eat anything yesterday. Has decreased appetite. Still with nausea no vomiting because she is not eating. No fever or chills no diarrhea or constipation. Lower extremity edema improved. Objective Vitals Vital Signs Date Time Temp Pulse Resp B/P (MAP) Pulse Ox O2 Delivery O2 Flow Rate FiO2 09/22/17 06:01 75 09/22/17 05:03 75 09/22/17 04:10 76 09/22/17 03:40 98.0 74 18 145/67 (93) 93 09/22/17 03:40 93 Nasal Cannula 3.00 09/22/17 03:07 73 09/22/17 02:10 73 09/22/17 01:18 75 09/22/17 00:18 77 09/21/17 23:49 97.9 78 17 144/67 (92) 96 09/21/17 23:49 96 Nasal Cannula 3.00 09/21/17 23:19 77 09/21/17 22:00 83 09/21/17 21:00 85 09/21/17 20:30 93 Nasal Cannula 3.00 09/21/17 20:30 98.2 83 18 159/69 (99) 93 09/21/17 20:30 81 09/21/17 18:00 70 09/21/17 17:00 68 09/21/17 16:00 67 09/21/17 15:34 96 Nasal Cannula 2.00 09/21/17 15:12 97.7 63 20 147/89 (108) 96 09/21/17 15:00 65 09/21/17 14:00 64 09/21/17 13:00 62 09/21/17 12:00 60 09/21/17 11:09 96 Nasal Cannula 2.00 09/21/17 11:08 97.5 66 20 132/52 (78) 96 09/21/17 11:00 65 09/21/17 10:00 68 09/21/17 09:00 72 I/O 09/21/17 09/21/17 09/21/17 09/22/17 09/22/17 09/22/17 07:00 15:00 23:00 07:00 15:00 23:00 Intake Total 240 ml 720 ml 240 ml Output Total 200 ml 3400 ml 300 ml Balance 40 ml -2680 ml -60 ml Intake Oral 240 ml 720 ml 240 ml Output Urine Total 200 ml 400 ml 300 ml Hemodialysis 3000 ml # Bowel Movements 1 1 Result Diagram: 09/22/1742109/22/17421 Imaging Last Impressions Chest X-Ray 09/22/17 0600 Signed Impressions: Service Date/Time: Friday, September 22, 2017 03:37 - CONCLUSION: Layering effusions and consolidation. Nic Christianson MD Catheter Placement X-Ray 09/21/17 0000 Signed Impressions: Service Date/Time: Thursday, September 21, 2017 15:00 - CONCLUSION: Uncomplicated vas catheter placement via the right internal jugular vein. Bernard Duque MD Renal Ultrasound 09/17/17 0000 Signed Impressions: Service Date/Time: Sunday, September 17, 2017 18:45 - CONCLUSION: 1. No evidence of hydronephrosis. 2. There is some mild increased echogenicity of the renal parenchyma bilaterally. 3. There appears to be a 3 mm nonobstructing stone in each kidney. Gerry Jernigan MD Objective Remarks GENERAL: female sitting up in bed in mild distress SKIN: No rashes, ecchymoses or lesions. Cool and dry. HEAD: Atraumatic. Normocephalic. No temporal or scalp tenderness. EYES: Pupils equal round and reactive. Extraocular motions intact. No scleral icterus. No injection or drainage. ENT: Nose without bleeding, purulent drainage or septal hematoma. Throat without erythema, tonsillar hypertrophy or exudate. Uvula midline. Airway patent. NECK: Trachea midline. No JVD or lymphadenopathy. Supple, nontender, no meningeal signs. CARDIOVASCULAR: Regular rate and rhythm without murmurs, gallops, or rubs. RESPIRATORY: Bilateral crackles. Decreased breath sounds bilaterally in the lower lobes GASTROINTESTINAL: Abdomen soft, non-tender, nondistended. No hepato-splenomegaly , or palpable masses. No guarding. MUSCULOSKELETAL: 2+ pitting edema to the mid shins. No calf tenderness. Left foot amputation NEUROLOGICAL: Awake and alert. Cranial nerves II through XII intact. Motor and sensory grossly within normal limits. Normal speech. 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 Found to have severe restrictive lung disease. Interstitial lung disease is present. Continue verapamil for hypertension. Received steroids for possible inflammatory component. Labs reviewed. No acute changes in CBC or BMP. Continue to monitor labs. Labs ordered for further monitoring. Restrictive lung disease Pulmonology following Received Steroids for possible inflammatory element Continue oxygen supplementation Further pulmonary function testing as an outpatient CHF with reduced EF 25% with exacerbation. Previously normal EF Cardiomyopathy This condition may be compounded by patient's hypertension and possible intrinsic lung disease Cardiology following Continue diuresis at lower dosing secondary to worsening renal function Continue oxygen supplementation ECHO with ejection fraction 25%, previously normal EF S/p Cardiac cath showing patent grafts, no lesions for intervention RHC showing high left sided filling pressures Nephrology consulted as worsening kidney function Added Coreg Hold MICHELLE-I/Spirolactone/Entresto due to kidney disease UOP not that great as diuretics decreased per nephro patient with worsening kidney function Pneumonia Possible intrinsic lung disease Pulmonary hypertension Pulmonology has been consulted Continue oxygen supplementation Continue Rocephin Continue azithromycin Follow sputum cultures Chest pain/CAD Resolved Negative cardiac workup No need for stents and cardiac catheter. Insulin-dependent diabetes mellitus Sliding scale insulin as patient nothing by mouth Monitor blood glucose Diabetic diet Acute kidney injury on chronic kidney disease Nephrology consulted, recommendations appreciated Follow renal function Diuretics decreased Avoid nephrotoxins Losartan and hydrochlorothiazide have been stopped Monitor I&Os CAD/PVD/HLD Continue aspirin and Plavix UA concerning for UTI Continue antibiotics Follow urine culture DVT prophylaxis Heparin Discussed with the patient, nurse Problem Qualifiers (1) CHF (congestive heart failure): Qualified Codes: I50.23 - Acute on chronic systolic (congestive) heart failure (2) Chronic kidney disease: Qualified Codes: N18.4 - Chronic kidney disease, stage 4 (severe) Sailaja Hoffmann MD Sep 22, 2017 08:20
[2017-09-22] MEDS: TIOTROPIUM BROMIDE 18 MCG INH INH SCH (09:00)
[2017-09-22] MEDS: VERAPAMIL HCL 40 MG TAB PO SCH (09:00)
[2017-09-22] MEDS: CARVEDILOL 3.125 MG TAB PO SCH ×2 (09:00→20:27)
[2017-09-22] MEDS: CHOLECALCIFEROL (VIT D3) 5000 UNIT CAP PO SCH (09:00)
[2017-09-22] MEDS: LORATADINE 10 MG TAB PO SCH (09:00)
[2017-09-22] MEDS: SODIUM CHLORIDE 0.9% FLUSH 10 ML FLUSH IV FLUSH SCH ×2 (09:00→20:28)
[2017-09-22] MEDS: guaiFENesin E.R. 600 MG TAB PO SCH ×2 (09:00→20:27)
[2017-09-22] MEDS: PARICALCITOL 1 MCG CAP PO SCH (09:00)
--- NOTE | 2017-09-22 09:45 | RSPPFT ---
DATE OF PROCEDURE: 09/17/17 COMMENTS: Spirometry shows FVC of 0.9 at 36% of predicted, FEV1 of 0.7 at 37%, FEV1/FVC ratio is normal. Flow is decreased at FEF 25, FEF 50, FEF 75 and FEF 25-75. There is no response after bronchodilator treatment. Flow volume loop indicates a restrictive pattern. IMPRESSION: 1. Severe restrictive lung disease. 2. No response after bronchodilator treatment. 3. Patient will need a complete pulmonary function study for evaluation.
[2017-09-22 10:34] LABS: HEPATITIS A AB IGM NEGATIVE (NEGATIVE); HEPATITIS B CORE AB IGM NEGATIVE (NEGATIVE); HEPATITIS B SURFACE ANTIGEN NEGATIVE (NEGATIVE); HEPATITIS C AB IgG NEGATIVE (NEGATIVE)
[2017-09-22 10:40] LABS: ANA PATTERN DIFFUSE
--- NOTE | 2017-09-22 10:59 | HHI.NPPN ---
Subjective General Problems: Anemia, Edema Renal Failure: Chronic, Acute Additional Remarks Patient is alert,nausea better Objective Data Data Vital Signs Date Time Temp Pulse Resp B/P (MAP) Pulse Ox O2 Delivery O2 Flow Rate FiO2 09/22/17 10:05 79 09/22/17 09:41 79 09/22/17 08:17 97 Nasal Cannula 3.00 09/22/17 08:00 97.3 75 18 147/66 (93) 93 09/22/17 08:00 77 09/22/17 08:00 93 Room Air 09/22/17 06:01 75 09/22/17 05:03 75 09/22/17 04:10 76 09/22/17 03:40 98.0 74 18 145/67 (93) 93 09/22/17 03:40 93 Nasal Cannula 3.00 09/22/17 03:07 73 09/22/17 02:10 73 09/22/17 01:18 75 09/22/17 00:18 77 09/21/17 23:49 97.9 78 17 144/67 (92) 96 09/21/17 23:49 96 Nasal Cannula 3.00 09/21/17 23:19 77 09/21/17 22:00 83 09/21/17 21:00 85 09/21/17 20:30 93 Nasal Cannula 3.00 09/21/17 20:30 98.2 83 18 159/69 (99) 93 09/21/17 20:30 81 09/21/17 18:00 70 09/21/17 17:00 68 09/21/17 16:00 67 09/21/17 15:34 96 Nasal Cannula 2.00 09/21/17 15:12 97.7 63 20 147/89 (108) 96 09/21/17 15:00 65 09/21/17 14:00 64 09/21/17 13:00 62 09/21/17 12:00 60 09/21/17 11:09 96 Nasal Cannula 2.00 09/21/17 11:08 97.5 66 20 132/52 (78) 96 09/21/17 11:00 65 -: 09/22/17 0422 09/22/17 0422 Physical Exam General Appearance: No Acute Distress, Comfortable Eyes Eye Exam: Pupils Equal Throat Throat Exam: Oral Mucosa [place] & Moist Pulmonary Resp Exam: No Distress, Decreased Bases, Diminished Breath Sounds Gastrointestinal/Abdomen GI Exam: Soft, Non-Tender, Bowel Sounds Present Extremeties Extremities Exam: Moderate Edema, Pitting Edema Neurologic Neuro Exam: Alert, Awake, Oriented Psychiatric Psych Exam: Appropriate Responses Assessment/Plan Problem List: (1) Acute renal failure ICD Codes: N17.9 - Acute kidney failure, unspecified Plan: Patient has recent exposure to dye 60 cc was used during heart catheterization Patient has chronic kidney disease and acute renal failure due to fluid fluctuation possible dye-induced on Lasix 40 mg BID. HD seen during dialysis progress noted UF 3.5 L stable start Vitamin D supplements, Zemplar for HPTH (2) Chronic kidney disease ICD Codes: N18.9 - Chronic kidney disease, unspecified (3) CHF (congestive heart failure) ICD Codes: I50.9 - Heart failure, unspecified Status: Acute Plan: Cardiology following on diuretic (4) CAD (coronary artery disease) ICD Codes: I25.10 - Atherosclerotic heart disease of [place] coronary artery without angina pectoris Plan: previous CABG (5) Insulin dependent diabetes mellitus ICD Codes: E11.9 - Type 2 diabetes mellitus without complications; Z79.4 - correction (current) use of insulin Plan: follow BG Problem Qualifiers (1) Chronic kidney disease: Qualified Codes: N18.4 - Chronic kidney disease, stage 4 (severe) (2) CHF (congestive heart failure): Qualified Codes: I50.23 - Acute on chronic systolic (congestive) heart failure Ehsan Cano MD Sep 22, 2017 10:59
[2017-09-22] MEDS: ASPIRIN 81 MG CHEW TAB CHEW SCH (12:26)
[2017-09-22] MEDS: CLOPIDOGREL 75 MG TAB PO SCH (12:26)
[2017-09-22] MEDS: predniSONE 20 MG TAB PO SCH ×2 (12:26→20:27)
[2017-09-22] MEDS: FUROSEMIDE 40 MG/4 ML VIAL IV PUSH SCH ×2 (12:26→17:43)
--- NOTE | 2017-09-22 13:57 | PD.CARD.PN ---
Subjective Subjective Remarks Started on HD Doing better Feels better, more energy and breathing better Objective Medications Current Medications Medications (Trade) Dose Ordered Sig/Briana Route Start Time Stop Time Status Last Admin (NS Flush) 2 ml UNSCH PRN IV FLUSH 09/09/17 22:00 (NS Flush) 2 ml BID IV FLUSH 09/10/17 09:00 09/22/17 09:00 (Tylenol) 650 mg Q4H PRN PO 09/09/17 22:00 09/21/17 00:46 (Zofran Inj) 4 mg Q6H PRN IVP 09/09/17 22:00 (Narcan Inj) 0.4 mg UNSCH PRN IV PUSH 09/09/17 22:00 (Milk Of Magnesia Liq) 30 ml Q12H PRN PO 09/09/17 22:00 09/15/17 20:29 (Senokot) 17.2 mg Q12H PRN PO 09/09/17 22:00 (Dulcolax Supp) 10 mg DAILY PRN RECTAL 09/09/17 22:00 (Lactulose Liq) 30 ml DAILY PRN PO 09/09/17 22:00 Ceftriaxone Sodium 1000 mg/ Sodium Chloride 100 ml @ 200 mls/hr Q24H IV 09/10/17 21:00 09/21/17 22:01 Azithromycin 250 mg/Sodium Chloride 250 ml @ 250 mls/hr Q24H IV 09/10/17 22:00 09/21/17 22:00 (D50w (Vial) Inj) 50 ml UNSCH PRN IV PUSH 09/09/17 22:15 (Glucagon Inj) 1 mg UNSCH PRN OTHER 09/09/17 22:15 (NovoLOG SUPPLEMENTAL SCALE) 1 ACHS SLIDING SCALE SQ 09/10/17 08:00 09/20/17 16:59 (Duoneb Neb) 1 ampule Q4HR NEB PRN NEB 09/10/17 02:00 09/22/17 12:29 (Aspirin Chew) 81 mg DAILY CHEW 09/11/17 09:00 09/22/17 12:26 (Plavix) 75 mg DAILY PO 09/11/17 09:00 09/22/17 12:26 (Spiriva Inh) 18 mcg DAILY INH 09/11/17 09:00 09/22/17 09:00 (Claritin) 5 mg DAILY PO 09/11/17 09:00 09/21/17 09:00 (Pill Splitter) 1 ea UNSCH PRN OTHER 09/10/17 18:00 (Albuterol Neb) 2.5 mg Q6HR NEB PRN NEB 09/15/17 19:30 09/20/17 02:42 (Mucinex Er) 600 mg BID PO 09/15/17 21:00 09/21/17 22:01 (Isoptin) 40 mg DAILY PO 09/18/17 09:00 09/21/17 09:01 (Deltasone) 20 mg BID PO 09/18/17 09:00 09/22/17 12:26 (Lasix Inj) 40 mg BID@18 IV PUSH 09/18/17 18:00 09/22/17 12:26 (Coreg) 3.125 mg Q12HR PO 09/19/17 21:00 09/21/17 22:01 (Zemplar) 1 mcg DAILY PO 09/20/17 15:00 09/21/17 09:00 (Vitamin D3) 5,000 units DAILY PO 09/20/17 15:00 09/20/17 14:58 Sodium Chloride 1,000 ml @ 0 mls/hr Q0M PRN OTHER 09/21/17 12:34 (Heparin Inj) 8,000 units UNSCH PRN IV FLUSH 09/21/17 12:45 Sodium Chloride 1,000 ml @ 200 mls/hr Q5H PRN IV 09/21/17 12:34 Sodium Chloride 1,000 ml @ 0 mls/hr Q0M PRN OTHER 09/21/17 12:34 (Mannitol Inj) 12.5 gm UNSCH PRN IV 09/21/17 12:45 Albumin Human 100 ml @ 60 mls/hr UNSCH PRN IV 09/21/17 12:45 (NS Flush) 5 ml UNSCH PRN IV FLUSH 09/21/17 12:45 (Heparin Inj) UNSCH PRN .XX 09/21/17 12:45 09/21/17 20:36 (Gentamicin Inj) 20 mg UNSCH PRN OTHER 09/21/17 12:45 09/21/17 20:37 (Zofran Inj) 4 mg UNSCH PRN IV PUSH 09/21/17 12:45 (Tylenol) 650 mg UNSCH PRN PO 09/21/17 12:45 (Benadryl) 25 mg UNSCH PRN PO 09/21/17 12:45 (Nitrostat Sl) 0.4 mg UNSCH PRN SL 09/21/17 12:45 (Catapres) 0.1 mg UNSCH PRN PO 09/21/17 12:45 (Epogen Inj) 4,000 units UNSCH PRN IV PUSH 09/21/17 12:45 (Gelfoam 12 Mm/7 Mm Top) 1 foam UNSCH PRN TOP 09/21/17 12:45 (NS Flush) UNSCH PRN IV FLUSH 09/21/17 15:45 (Heparin Inj) UNSCH PRN IV FLUSH 09/21/17 15:45 Vital Signs / I&O Vital Signs Date Time Temp Pulse Resp B/P (MAP) Pulse Ox O2 Delivery O2 Flow Rate FiO2 09/22/17 13:01 81 09/22/17 12:07 87 09/22/17 11:45 80 09/22/17 11:45 97.7 81 18 142/54 (83) 97 09/22/17 11:45 97 Nasal Cannula 2.00 09/22/17 10:05 79 09/22/17 09:41 79 09/22/17 08:17 97 Nasal Cannula 3.00 09/22/17 08:00 97.3 75 18 147/66 (93) 93 09/22/17 08:00 77 09/22/17 08:00 93 Room Air 09/22/17 06:01 75 09/22/17 05:03 75 09/22/17 04:10 76 09/22/17 03:40 98.0 74 18 145/67 (93) 93 09/22/17 03:40 93 Nasal Cannula 3.00 09/22/17 03:07 73 09/22/17 02:10 73 09/22/17 01:18 75 09/22/17 00:18 77 09/21/17 23:49 97.9 78 17 144/67 (92) 96 09/21/17 23:49 96 Nasal Cannula 3.00 09/21/17 23:19 77 09/21/17 22:00 83 09/21/17 21:00 85 09/21/17 20:30 93 Nasal Cannula 3.00 09/21/17 20:30 98.2 83 18 159/69 (99) 93 09/21/17 20:30 81 09/21/17 18:00 70 09/21/17 17:00 68 09/21/17 16:00 67 09/21/17 15:34 96 Nasal Cannula 2.00 09/21/17 15:12 97.7 63 20 147/89 (108) 96 09/21/17 15:00 65 09/21/17 14:00 64 I/O 09/21/17 09/21/17 09/21/17 09/22/17 09/22/17 09/22/17 07:00 15:00 23:00 07:00 15:00 23:00 Intake Total 240 ml 720 ml 240 ml Output Total 200 ml 3400 ml 300 ml 3500 ml Balance 40 ml -2680 ml -60 ml -3500 ml Intake Oral 240 ml 720 ml 240 ml Output Urine Total 200 ml 400 ml 300 ml Hemodialysis 3000 ml 3500 ml # Bowel Movements 1 1 Physical Exam GENERAL: NAD, AAOx3 SKIN: Warm and dry. HEAD: Atraumatic. Normocephalic. EYES: Pupils equal and round. No scleral icterus. No injection or drainage. ENT: No nasal bleeding or discharge. Mucous membranes pink and moist. NECK: Trachea midline. No JVD. CARDIOVASCULAR: Regular rate and rhythm. RESPIRATORY: No accessory muscle use. Decreased breath sounds bilaterally GASTROINTESTINAL: Abdomen soft, non-tender, nondistended. Hepatic and splenic margins not palpable. MUSCULOSKELETAL: Extremities without clubbing, cyanosis, or edema. No obvious deformities. Right femoral no hematoma, distal pulses intact NEUROLOGICAL: Awake and alert. No obvious cranial nerve deficits. Motor grossly within normal limits. Five out of 5 muscle strength in the arms and legs. Normal speech. PSYCHIATRIC: Appropriate mood and affect; insight and judgment normal. Laboratory Laboratory Tests Test 09/21/17 17:48 09/22/17 04:22 Hepatitis A IgM Antibody NEGATIVE Hepatitis B Surface Antigen NEGATIVE Hepatitis B Core IgM Antibody NEGATIVE Hepatitis C Antibody NEGATIVE White Blood Count 8.7 TH/MM3 Red Blood Count 3.96 MIL/MM3 Hemoglobin 10.9 GM/DL Hematocrit 33.7 % Mean Corpuscular Volume 85.1 FL Mean Corpuscular Hemoglobin 27.5 PG Mean Corpuscular Hemoglobin Concent 32.3 % Red Cell Distribution Width 18.1 % Platelet Count 327 TH/MM3 Mean Platelet Volume 9.3 FL Neutrophils (%) (Auto) 84.0 % Lymphocytes (%) (Auto) 6.7 % Monocytes (%) (Auto) 9.2 % Eosinophils (%) (Auto) 0.0 % Basophils (%) (Auto) 0.1 % Neutrophils # (Auto) 7.3 TH/MM3 Lymphocytes # (Auto) 0.6 TH/MM3 Monocytes # (Auto) 0.8 TH/MM3 Eosinophils # (Auto) 0.0 TH/MM3 Basophils # (Auto) 0.0 TH/MM3 CBC Comment DIFF FINAL Differential Comment Blood Urea Nitrogen 58 MG/DL Creatinine 3.27 MG/DL Random Glucose 81 MG/DL Albumin 2.8 GM/DL Calcium Level 8.2 MG/DL Phosphorus Level 5.8 MG/DL Sodium Level 136 MEQ/L Potassium Level 3.8 MEQ/L Chloride Level 100 MEQ/L Carbon Dioxide Level 21.2 MEQ/L Anion Gap 15 MEQ/L Estimat Glomerular Filtration Rate 14 ML/MIN Imaging Last 24 hours Impressions Chest X-Ray 09/22/17 0600 Signed Impressions: Service Date/Time: Friday, September 22, 2017 03:37 - CONCLUSION: Layering effusions and consolidation. Nic Christianson MD Assessment and Plan Problem List: (1) CHF (congestive heart failure) ICD Codes: I50.9 - Heart failure, unspecified Status: Acute (2) Chronic kidney disease ICD Codes: N18.9 - Chronic kidney disease, unspecified (3) CAD (coronary artery disease) ICD Codes: I25.10 - Atherosclerotic heart disease of [place] coronary artery without angina pectoris Assessment and Plan 1) Acute on chronic CHF Echo showing decreased EF, previously normal EF Cardiac cath showing patent grafts, no lesions for intervention RHC showing high left sided filling pressures Coreg added No MICHELLE-I/Spirolactone/Entresto due to kidney disease 2) Rising creatinine Discussed with nephrology, HD started 3) CAD No lesions for intervention, con't medical management Con't ASA/Plavix 4) Intrinsic lung disease Pulmonology consulted, appreciated recommendations 5) Concern for positive I/Os daily, going to head back to heart failure Hopefully will be helped with HD Problem Qualifiers (1) CHF (congestive heart failure): Qualified Codes: I50.23 - Acute on chronic systolic (congestive) heart failure (2) Chronic kidney disease: Qualified Codes: N18.4 - Chronic kidney disease, stage 4 (severe) Shravan Muniz DO Sep 22, 2017 13:57
--- NOTE | 2017-09-22 19:38 | HHI.PR ---
Subjective Remarks 71 YOWF with COPD,CAD,CHF. decreased EF Was feeling much better but became sob with walking ABG showes hypoxia No CP PFT suggestive of severe restrictve dis Had HD yesterday, feels much better Objective Vital Signs Vital Signs Date Time Temp Pulse Resp B/P (MAP) Pulse Ox O2 Delivery O2 Flow Rate FiO2 09/22/17 18:01 82 09/22/17 17:08 79 09/22/17 16:01 81 09/22/17 15:43 74 09/22/17 15:43 97.8 79 18 127/60 (82) 92 09/22/17 15:43 92 Nasal Cannula 2.00 09/22/17 14:26 77 09/22/17 13:01 81 09/22/17 12:07 87 09/22/17 11:45 80 09/22/17 11:45 97.7 81 18 142/54 (83) 97 09/22/17 11:45 97 Nasal Cannula 2.00 09/22/17 10:05 79 09/22/17 09:41 79 09/22/17 08:17 97 Nasal Cannula 3.00 09/22/17 08:00 97.3 75 18 147/66 (93) 93 09/22/17 08:00 77 09/22/17 08:00 93 Room Air 09/22/17 06:01 75 09/22/17 05:03 75 09/22/17 04:10 76 09/22/17 03:40 98.0 74 18 145/67 (93) 93 09/22/17 03:40 93 Nasal Cannula 3.00 09/22/17 03:07 73 09/22/17 02:10 73 09/22/17 01:18 75 09/22/17 00:18 77 09/21/17 23:49 97.9 78 17 144/67 (92) 96 09/21/17 23:49 96 Nasal Cannula 3.00 09/21/17 23:19 77 09/21/17 22:00 83 09/21/17 21:00 85 09/21/17 20:30 93 Nasal Cannula 3.00 09/21/17 20:30 98.2 83 18 159/69 (99) 93 09/21/17 20:30 81 I/O 2/13/18 2/13/09/21/17 09/22/17 09/22/17 09/22/17 07:00 15:00 23:00 07:00 15:00 23:00 Intake Total 240 ml 720 ml 240 ml 360 ml Output Total 200 ml 3400 ml 300 ml 3500 ml 400 ml Balance 40 ml -2680 ml -60 ml -3500 ml -40 ml Intake Oral 240 ml 720 ml 240 ml 360 ml Output Urine Total 200 ml 400 ml 300 ml 400 ml Hemodialysis 3000 ml 3500 ml # Bowel Movements 1 1 0 Result Diagram: 09/22/1742109/22/17421 Objective Remarks GENERAL: MBMN WF, mild sob SKIN: Warm and dry. HEAD: Normocephalic. EYES: No scleral icterus. No injection or drainage. NECK: Supple, trachea midline. No JVD or lymphadenopathy. CARDIOVASCULAR: Regular rate and rhythm without murmurs, gallops, or rubs. RESPIRATORY: Breath sounds equal bilaterally. No accessory muscle use. GASTROINTESTINAL: Abdomen soft, non-tender, nondistended. MUSCULOSKELETAL: No cyanosis, or edema. BACK: Nontender without obvious deformity. No CVA tenderness. A/P Assessment and Plan COPD Hypoxia CHF CAD Decreased EF Anxiety renal failure PLAN: Aerosol nebs Diurease Monitor lytes Supplement 02 Will need complete PFT with diffusion and lung volumes as out pt OOB and ambulate Nilesh Rossi MD Sep 22, 2017 19:37
[2017-09-22] MEDS: cefTRIAXone INJ 1,000 MG in SODIUM CHLORIDE 0.9% INJ 100 ML IV SCH (20:28)
[2017-09-22] MEDS: AZITHROMYCIN INJ 250 MG in SODIUM CHLOR 0.9% 250 ML INJ 250 ML IV SCH (21:56)
[2017-09-23] VITALS (28 sets, daily range): BP systolic 84–140; BP diastolic 51–66; PULSE 68–88; RESP 14–20; TEMP 97.4–98.4; O2SAT 93–100
[2017-09-23] MEDS: RESP: ALBUTEROL 2.5 MG/IPRATROPIUM 0.5 MG NEB (PRN) NEB ×2 (04:04→23:21)
[2017-09-23 04:37] LABS: AUTOMATED NEUTROPHIL # 4.9 TH/MM3 (1.8-7.7); BASOPHIL % 0.1 % (0.0-2.0); HEMATOCRIT 31.4 % (35.0-46.0); LYMPH % 9.3 % (9.0-44.0); LYMPHOCYTE # 0.5 TH/MM3 (1.0-4.8); MEAN CELL VOLUME 85.3 FL (80.0-100.0); MEAN CORPUSCULAR HEMOGLOBIN 27.2 PG (27.0-34.0); MEAN CORPUSCULAR HGB CONC 31.9 % (32.0-36.0); MEAN PLATELET VOLUME 9.1 FL (7.0-11.0); MONO % 5.9 % (0.0-8.0); MONOCYTE # 0.3 TH/MM3 (0-0.9); NEUT % 84.7 % (16.0-70.0); PLATELET COUNT 260 TH/MM3 (150-450); RED BLOOD COUNT 3.68 MIL/MM3 (4.00-5.30); RED CELL DISTRIBUTION WIDTH 17.9 % (11.6-17.2); WHITE BLOOD COUNT 5.8 TH/MM3 (4.0-11.0)
[2017-09-23 04:54] LABS: BICARBONATE 22.9 MEQ/L (21.0-32.0); CREATININE 2.44 MG/DL (0.50-1.00)
--- NOTE | 2017-09-23 08:34 | HHI.PR ---
Subjective Remarks With nonproductive cough and with some sob. LE edema improved. Appetite is improving some. Less nausea and was able to keep some food down. No fever or chills. No chest pain or lightheadedness. Objective Vitals Vital Signs Date Time Temp Pulse Resp B/P (MAP) Pulse Ox O2 Delivery O2 Flow Rate FiO2 09/23/17 06:17 77 09/23/17 05:40 79 09/23/17 04:23 80 09/23/17 03:28 77 09/23/17 03:10 98.1 80 18 118/56 (76) 93 09/23/17 03:10 Nasal Cannula 3.00 09/23/17 02:17 75 09/23/17 01:39 79 09/23/17 00:29 88 09/22/17 23:00 98.3 80 18 124/59 (80) 94 09/22/17 23:00 Nasal Cannula 3.00 09/22/17 23:00 78 09/22/17 22:00 80 09/22/17 21:00 84 09/22/17 20:31 93 Nasal Cannula 2.00 09/22/17 20:00 80 09/22/17 19:00 85 09/22/17 19:00 Nasal Cannula 3.00 09/22/17 19:00 98.2 83 20 137/63 (87) 95 09/22/17 18:01 82 09/22/17 17:08 79 09/22/17 16:01 81 09/22/17 15:43 74 09/22/17 15:43 97.8 79 18 127/60 (82) 92 09/22/17 15:43 92 Nasal Cannula 2.00 09/22/17 14:26 77 09/22/17 13:01 81 09/22/17 12:07 87 09/22/17 11:45 80 09/22/17 11:45 97.7 81 18 142/54 (83) 97 09/22/17 11:45 97 Nasal Cannula 2.00 09/22/17 10:05 79 09/22/17 09:41 79 I/O 09/22/17 09/22/17 09/22/17 09/23/17 09/23/17 09/23/17 07:00 15:00 23:00 07:00 15:00 23:00 Intake Total 240 ml 360 ml 100 ml Output Total 300 ml 3500 ml 400 ml 310 ml Balance -60 ml -3500 ml -40 ml -210 ml Intake Oral 240 ml 360 ml 100 ml Output Urine Total 300 ml 400 ml 310 ml Hemodialysis 3500 ml # Bowel Movements 0 0 Result Diagram: 09/23/17 0346 09/23/17 0346 Imaging Last Impressions Chest X-Ray 09/22/17 0600 Signed Impressions: Service Date/Time: Friday, September 22, 2017 03:37 - CONCLUSION: Layering effusions and consolidation. Nic Christianson MD Catheter Placement X-Ray 09/21/17 0000 Signed Impressions: Service Date/Time: Thursday, September 21, 2017 15:00 - CONCLUSION: Uncomplicated vas catheter placement via the right internal jugular vein. Bernard Duque MD Renal Ultrasound 09/17/17 0000 Signed Impressions: Service Date/Time: Sunday, September 17, 2017 18:45 - CONCLUSION: 1. No evidence of hydronephrosis. 2. There is some mild increased echogenicity of the renal parenchyma bilaterally. 3. There appears to be a 3 mm nonobstructing stone in each kidney. Gerry Jernigan MD Objective Remarks GENERAL: female sitting up in bed in mild distress SKIN: No rashes, ecchymoses or lesions. Cool and dry. HEAD: Atraumatic. Normocephalic. No temporal or scalp tenderness. EYES: Pupils equal round and reactive. Extraocular motions intact. No scleral icterus. No injection or drainage. ENT: Nose without bleeding, purulent drainage or septal hematoma. Throat without erythema, tonsillar hypertrophy or exudate. Uvula midline. Airway patent. NECK: Trachea midline. No JVD or lymphadenopathy. Supple, nontender, no meningeal signs. CARDIOVASCULAR: Regular rate and rhythm without murmurs, gallops, or rubs. RESPIRATORY: Bilateral crackles. Decreased breath sounds bilaterally in the lower lobes GASTROINTESTINAL: Abdomen soft, non-tender, nondistended. No hepato-splenomegaly , or palpable masses. No guarding. MUSCULOSKELETAL: 2+ pitting edema to the mid shins. No calf tenderness. Left foot amputation NEUROLOGICAL: Awake and alert. Cranial nerves II through XII intact. Motor and sensory grossly within normal limits. Normal speech. 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 Found to have severe restrictive lung disease. Interstitial lung disease is present. Continue verapamil for hypertension. Received steroids for possible inflammatory component. Labs reviewed. No acute changes in CBC or BMP. Continue to monitor labs. Labs ordered for further monitoring. Restrictive lung disease Pulmonology following Received Steroids for possible inflammatory element Continue oxygen supplementation Further pulmonary function testing as an outpatient CHF with reduced EF 25% with exacerbation. Previously normal EF Cardiomyopathy This condition may be compounded by patient's hypertension and possible intrinsic lung disease Cardiology following Continue diuresis at lower dosing secondary to worsening renal function Continue oxygen supplementation ECHO with ejection fraction 25%, previously normal EF S/p Cardiac cath showing patent grafts, no lesions for intervention RHC showing high left sided filling pressures Nephrology consulted as worsening kidney function Added Coreg Hold MICHELLE-I/Spirolactone/Entresto due to kidney disease UOP not that great as diuretics decreased per nephro patient with worsening kidney function Pneumonia Possible intrinsic lung disease Pulmonary hypertension Pulmonology has been consulted Continue oxygen supplementation Continue Rocephin Continue azithromycin Follow sputum cultures Chest pain/CAD Resolved Negative cardiac workup No need for stents and cardiac catheter. Insulin-dependent diabetes mellitus Sliding scale insulin as patient nothing by mouth Monitor blood glucose Diabetic diet Acute kidney injury on chronic kidney disease Nephrology consulted, recommendations appreciated Follow renal function Received dye with cardiac cath. On Lasix 40 mg BID. On Vitamin D supplements, Zemplar for HPTH Avoid nephrotoxins Started HD per nephrology Losartan and hydrochlorothiazide have been stopped Monitor I&Os CAD/PVD/HLD Continue aspirin and Plavix UA concerning for UTI Continue antibiotics Follow urine culture DVT prophylaxis Heparin Discussed with the patient, nurse DC plan : on HD Discharge when improved and cleared by consultants Problem Qualifiers (1) CHF (congestive heart failure): Qualified Codes: I50.23 - Acute on chronic systolic (congestive) heart failure (2) Chronic kidney disease: Qualified Codes: N18.4 - Chronic kidney disease, stage 4 (severe) Sailaja Hoffmann MD Sep 23, 2017 08:34
[2017-09-23] MEDS: INSULIN ASPART SUPPLEMENTAL SCALE SQ SCH ×4 (09:19→20:36)
[2017-09-23] MEDS: TIOTROPIUM BROMIDE 18 MCG INH INH SCH (09:20)
[2017-09-23] MEDS: SODIUM CHLORIDE 0.9% FLUSH 10 ML FLUSH IV FLUSH SCH ×2 (09:20→20:34)
[2017-09-23] MEDS: ASPIRIN 81 MG CHEW TAB CHEW SCH (09:20)
[2017-09-23] MEDS: guaiFENesin E.R. 600 MG TAB PO SCH ×2 (09:21→20:34)
[2017-09-23] MEDS: LORATADINE 10 MG TAB PO SCH (09:21)
[2017-09-23] MEDS: predniSONE 20 MG TAB PO SCH ×2 (09:21→20:34)
[2017-09-23] MEDS: FUROSEMIDE 40 MG/4 ML VIAL IV PUSH SCH ×2 (09:21→18:41)
[2017-09-23] MEDS: VERAPAMIL HCL 40 MG TAB PO SCH (09:21)
[2017-09-23] MEDS: CARVEDILOL 3.125 MG TAB PO SCH ×2 (09:21→20:34)
[2017-09-23] MEDS: CHOLECALCIFEROL (VIT D3) 5000 UNIT CAP PO SCH (09:22)
[2017-09-23] MEDS: PARICALCITOL 1 MCG CAP PO SCH (09:22)
[2017-09-23] MEDS: CLOPIDOGREL 75 MG TAB PO SCH (09:22)
--- NOTE | 2017-09-23 11:11 | PD.CARD.PN ---
Subjective Subjective Remarks Started on HD Doing better Feels better, more energy and breathing better Objective Medications Current Medications Medications (Trade) Dose Ordered Sig/Briana Route Start Time Stop Time Status Last Admin (NS Flush) 2 ml UNSCH PRN IV FLUSH 09/09/17 22:00 (NS Flush) 2 ml BID IV FLUSH 09/10/17 09:00 09/23/17 09:20 (Tylenol) 650 mg Q4H PRN PO 09/09/17 22:00 09/21/17 00:46 (Zofran Inj) 4 mg Q6H PRN IVP 09/09/17 22:00 (Narcan Inj) 0.4 mg UNSCH PRN IV PUSH 09/09/17 22:00 (Milk Of Magnesia Liq) 30 ml Q12H PRN PO 09/09/17 22:00 09/15/17 20:29 (Senokot) 17.2 mg Q12H PRN PO 09/09/17 22:00 (Dulcolax Supp) 10 mg DAILY PRN RECTAL 09/09/17 22:00 (Lactulose Liq) 30 ml DAILY PRN PO 09/09/17 22:00 Ceftriaxone Sodium 1000 mg/ Sodium Chloride 100 ml @ 200 mls/hr Q24H IV 09/10/17 21:00 09/22/17 20:28 Azithromycin 250 mg/Sodium Chloride 250 ml @ 250 mls/hr Q24H IV 09/10/17 22:00 09/22/17 21:56 (D50w (Vial) Inj) 50 ml UNSCH PRN IV PUSH 09/09/17 22:15 (Glucagon Inj) 1 mg UNSCH PRN OTHER 09/09/17 22:15 (NovoLOG SUPPLEMENTAL SCALE) 1 ACHS SLIDING SCALE SQ 09/10/17 08:00 09/23/17 09:19 (Duoneb Neb) 1 ampule Q4HR NEB PRN NEB 09/10/17 02:00 09/23/17 04:04 (Aspirin Chew) 81 mg DAILY CHEW 09/11/17 09:00 09/23/17 09:20 (Plavix) 75 mg DAILY PO 09/11/17 09:00 09/23/17 09:22 (Spiriva Inh) 18 mcg DAILY INH 09/11/17 09:00 09/23/17 09:20 (Claritin) 5 mg DAILY PO 09/11/17 09:00 09/23/17 09:21 (Pill Splitter) 1 ea UNSCH PRN OTHER 09/10/17 18:00 (Albuterol Neb) 2.5 mg Q6HR NEB PRN NEB 09/15/17 19:30 09/20/17 02:42 (Mucinex Er) 600 mg BID PO 09/15/17 21:00 09/23/17 09:21 (Isoptin) 40 mg DAILY PO 09/18/17 09:00 09/23/17 09:21 (Deltasone) 20 mg BID PO 09/18/17 09:00 09/23/17 09:21 (Lasix Inj) 40 mg BID@ IV PUSH 09/18/17 18:00 09/23/17 09:21 (Coreg) 3.125 mg Q12HR PO 09/19/17 21:00 09/23/17 09:21 (Zemplar) 1 mcg DAILY PO 09/20/17 15:00 09/23/17 09:22 (Vitamin D3) 5,000 units DAILY PO 09/20/17 15:00 09/23/17 09:22 Sodium Chloride 1,000 ml @ 0 mls/hr Q0M PRN OTHER 09/21/17 12:34 (Heparin Inj) 8,000 units UNSCH PRN IV FLUSH 09/21/17 12:45 Sodium Chloride 1,000 ml @ 200 mls/hr Q5H PRN IV 09/21/17 12:34 Sodium Chloride 1,000 ml @ 0 mls/hr Q0M PRN OTHER 09/21/17 12:34 (Mannitol Inj) 12.5 gm UNSCH PRN IV 09/21/17 12:45 Albumin Human 100 ml @ 60 mls/hr UNSCH PRN IV 09/21/17 12:45 (NS Flush) 5 ml UNSCH PRN IV FLUSH 09/21/17 12:45 (Heparin Inj) UNSCH PRN .XX 09/21/17 12:45 09/21/17 20:36 (Gentamicin Inj) 20 mg UNSCH PRN OTHER 09/21/17 12:45 09/21/17 20:37 (Zofran Inj) 4 mg UNSCH PRN IV PUSH 09/21/17 12:45 (Tylenol) 650 mg UNSCH PRN PO 09/21/17 12:45 (Benadryl) 25 mg UNSCH PRN PO 09/21/17 12:45 (Nitrostat Sl) 0.4 mg UNSCH PRN SL 09/21/17 12:45 (Catapres) 0.1 mg UNSCH PRN PO 09/21/17 12:45 (Epogen Inj) 4,000 units UNSCH PRN IV PUSH 09/21/17 12:45 (Gelfoam 12 Mm/7 Mm Top) 1 foam UNSCH PRN TOP 09/21/17 12:45 (NS Flush) UNSCH PRN IV FLUSH 09/21/17 15:45 (Heparin Inj) UNSCH PRN IV FLUSH 09/21/17 15:45 Vital Signs / I&O Vital Signs Date Time Temp Pulse Resp B/P (MAP) Pulse Ox O2 Delivery O2 Flow Rate FiO2 09/23/17 10:21 98 Nasal Cannula 2.00 09/23/17 06:17 77 09/23/17 05:40 79 09/23/17 04:23 80 09/23/17 03:28 77 09/23/17 03:10 98.1 80 18 118/56 (76) 93 09/23/17 03:10 Nasal Cannula 3.00 09/23/17 02:17 75 09/23/17 01:39 79 09/23/17 00:29 88 09/22/17 23:00 98.3 80 18 124/59 (80) 94 09/22/17 23:00 Nasal Cannula 3.00 09/22/17 23:00 78 09/22/17 22:00 80 09/22/17 21:00 84 09/22/17 20:31 93 Nasal Cannula 2.00 09/22/17 20:00 80 09/22/17 19:00 85 09/22/17 19:00 Nasal Cannula 3.00 09/22/17 19:00 98.2 83 20 137/63 (87) 95 09/22/17 18:01 82 09/22/17 17:08 79 09/22/17 16:01 81 09/22/17 15:43 74 09/22/17 15:43 97.8 79 18 127/60 (82) 92 09/22/17 15:43 92 Nasal Cannula 2.00 09/22/17 14:26 77 09/22/17 13:01 81 09/22/17 12:07 87 09/22/17 11:45 80 09/22/17 11:45 97.7 81 18 142/54 (83) 97 09/22/17 11:45 97 Nasal Cannula 2.00 I/O 09/22/17 09/22/17 09/22/17 09/23/17 09/23/17 09/23/17 06:59 14:59 22:59 06:59 14:59 22:59 Intake Total 240 ml 360 ml 100 ml Output Total 300 ml 3500 ml 400 ml 310 ml Balance -60 ml -3500 ml -40 ml -210 ml Intake Oral 240 ml 360 ml 100 ml Output Urine Total 300 ml 400 ml 310 ml Hemodialysis 3500 ml # Bowel Movements 0 0 Physical Exam GENERAL: NAD, AAOx3 SKIN: Warm and dry. HEAD: Atraumatic. Normocephalic. EYES: Pupils equal and round. No scleral icterus. No injection or drainage. ENT: No nasal bleeding or discharge. Mucous membranes pink and moist. NECK: Trachea midline. No JVD. CARDIOVASCULAR: Regular rate and rhythm. RESPIRATORY: No accessory muscle use. Decreased breath sounds bilaterally GASTROINTESTINAL: Abdomen soft, non-tender, nondistended. Hepatic and splenic margins not palpable. MUSCULOSKELETAL: Extremities without clubbing, cyanosis, or edema. No obvious deformities. Right femoral no hematoma, distal pulses intact NEUROLOGICAL: Awake and alert. No obvious cranial nerve deficits. Motor grossly within normal limits. Five out of 5 muscle strength in the arms and legs. Normal speech. PSYCHIATRIC: Appropriate mood and affect; insight and judgment normal. Laboratory Laboratory Tests Test 09/23/17 03:46 White Blood Count 5.8 TH/MM3 Red Blood Count 3.68 MIL/MM3 Hemoglobin 10.0 GM/DL Hematocrit 31.4 % Mean Corpuscular Volume 85.3 FL Mean Corpuscular Hemoglobin 27.2 PG Mean Corpuscular Hemoglobin Concent 31.9 % Red Cell Distribution Width 17.9 % Platelet Count 260 TH/MM3 Mean Platelet Volume 9.1 FL Neutrophils (%) (Auto) 84.7 % Lymphocytes (%) (Auto) 9.3 % Monocytes (%) (Auto) 5.9 % Eosinophils (%) (Auto) 0.0 % Basophils (%) (Auto) 0.1 % Neutrophils # (Auto) 4.9 TH/MM3 Lymphocytes # (Auto) 0.5 TH/MM3 Monocytes # (Auto) 0.3 TH/MM3 Eosinophils # (Auto) 0.0 TH/MM3 Basophils # (Auto) 0.0 TH/MM3 CBC Comment DIFF FINAL Differential Comment Blood Urea Nitrogen 42 MG/DL Creatinine 2.44 MG/DL Random Glucose 157 MG/DL Calcium Level 8.0 MG/DL Sodium Level 137 MEQ/L Potassium Level 3.8 MEQ/L Chloride Level 100 MEQ/L Carbon Dioxide Level 22.9 MEQ/L Anion Gap 14 MEQ/L Estimat Glomerular Filtration Rate 19 ML/MIN Assessment and Plan Problem List: (1) CHF (congestive heart failure) ICD Codes: I50.9 - Heart failure, unspecified Status: Acute (2) Chronic kidney disease ICD Codes: N18.9 - Chronic kidney disease, unspecified (3) CAD (coronary artery disease) ICD Codes: I25.10 - Atherosclerotic heart disease of [place] coronary artery without angina pectoris Assessment and Plan 1) Acute on chronic CHF Echo showing decreased EF, previously normal EF Cardiac cath showing patent grafts, no lesions for intervention RHC showing high left sided filling pressures Coreg added No MICHELLE-I/Spirolactone/Entresto due to kidney disease 2) Rising creatinine Discussed with nephrology, HD started 3) CAD No lesions for intervention, con't medical management Con't ASA/Plavix 4) Intrinsic lung disease Pulmonology consulted, appreciated recommendations 5) No further cardiovascular issues, can be discharged from a cardiovascular perspective Problem Qualifiers (1) CHF (congestive heart failure): Qualified Codes: I50.23 - Acute on chronic systolic (congestive) heart failure (2) Chronic kidney disease: Qualified Codes: N18.4 - Chronic kidney disease, stage 4 (severe) Shravan Muniz DO Sep 23, 2017 11:11
--- NOTE | 2017-09-23 14:00 | HHI.NPPN ---
Subjective General Problems: Anemia, Edema Renal Failure: Chronic, Acute Additional Remarks Patient is alert,Cough positive Objective Data Data Vital Signs Date Time Temp Pulse Resp B/P (MAP) Pulse Ox O2 Delivery O2 Flow Rate FiO2 09/23/17 12:00 70 09/23/17 11:00 68 09/23/17 11:00 94 3.00 09/23/17 11:00 97.6 69 14 126/56 (79) 100 09/23/17 10:21 98 Nasal Cannula 2.00 09/23/17 10:00 77 09/23/17 09:00 69 09/23/17 08:00 97.4 79 16 140/66 (90) 94 09/23/17 08:00 94 3.00 09/23/17 08:00 69 09/23/17 07:00 79 09/23/17 06:17 77 09/23/17 05:40 79 09/23/17 04:23 80 09/23/17 03:28 77 09/23/17 03:10 98.1 80 18 118/56 (76) 93 09/23/17 03:10 Nasal Cannula 3.00 09/23/17 02:17 75 09/23/17 01:39 79 09/23/17 00:29 88 09/22/17 23:00 98.3 80 18 124/59 (80) 94 09/22/17 23:00 Nasal Cannula 3.00 09/22/17 23:00 78 09/22/17 22:00 80 09/22/17 21:00 84 09/22/17 20:31 93 Nasal Cannula 2.00 09/22/17 20:00 80 09/22/17 19:00 85 09/22/17 19:00 Nasal Cannula 3.00 09/22/17 19:00 98.2 83 20 137/63 (87) 95 09/22/17 18:01 82 09/22/17 17:08 79 09/22/17 16:01 81 09/22/17 15:43 74 09/22/17 15:43 97.8 79 18 127/60 (82) 92 09/22/17 15:43 92 Nasal Cannula 2.00 09/22/17 14:26 77 -: 09/23/17 0346 09/23/17 0346 Physical Exam General Appearance: No Acute Distress, Comfortable Eyes Eye Exam: Pupils Equal Throat Throat Exam: Oral Mucosa Ney & Moist Pulmonary Resp Exam: No Distress, Decreased Bases, Diminished Breath Sounds Gastrointestinal/Abdomen GI Exam: Soft, Non-Tender, Bowel Sounds Present Extremeties Extremities Exam: Moderate Edema, Pitting Edema Neurologic Neuro Exam: Alert, Awake, Oriented Psychiatric Psych Exam: Appropriate Responses Assessment/Plan Problem List: (1) Acute renal failure ICD Codes: N17.9 - Acute kidney failure, unspecified Plan: Patient has recent exposure to dye 60 cc was used during heart catheterization Patient has chronic kidney disease and acute renal failure due to fluid fluctuation possible dye-induced on Lasix 40 mg BID. check BMP if Cr higher may need HD in am use IS for lung expansion start Vitamin D supplements, Zemplar for HPTH UTI E faecalis on Ceftriaxone Zithromax repeat c/s (2) Chronic kidney disease ICD Codes: N18.9 - Chronic kidney disease, unspecified (3) CHF (congestive heart failure) ICD Codes: I50.9 - Heart failure, unspecified Status: Acute Plan: Cardiology following on diuretic (4) CAD (coronary artery disease) ICD Codes: I25.10 - Atherosclerotic heart disease of [place] coronary artery without angina pectoris Plan: previous CABG (5) Insulin dependent diabetes mellitus ICD Codes: E11.9 - Type 2 diabetes mellitus without complications; 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
[2017-09-23] MEDS: cefTRIAXone INJ 1,000 MG in SODIUM CHLORIDE 0.9% INJ 100 ML IV SCH (20:33)
--- NOTE | 2017-09-23 20:43 | HHI.PR ---
Subjective Remarks 71 YOWF with COPD,CAD,CHF. decreased EF Was feeling much better but became sob with walking ABG showes hypoxia No CP PFT suggestive of severe restrictve dis Slept better Ambulates in hallway Objective Vital Signs Vital Signs Date Time Temp Pulse Resp B/P (MAP) Pulse Ox O2 Delivery O2 Flow Rate FiO2 09/23/17 18:00 75 09/23/17 17:00 72 09/23/17 16:00 73 09/23/17 15:00 74 09/23/17 15:00 97 3.00 09/23/17 15:00 98.4 73 16 115/56 (75) 97 09/23/17 14:00 72 09/23/17 13:00 73 09/23/17 12:00 70 09/23/17 11:00 68 09/23/17 11:00 94 3.00 09/23/17 11:00 97.6 69 14 126/56 (79) 100 09/23/17 10:21 98 Nasal Cannula 2.00 09/23/17 10:00 77 09/23/17 09:00 69 09/23/17 08:00 97.4 79 16 140/66 (90) 94 09/23/17 08:00 94 3.00 09/23/17 08:00 69 09/23/17 07:00 79 09/23/17 06:17 77 09/23/17 05:40 79 09/23/17 04:23 80 09/23/17 03:28 77 09/23/17 03:10 98.1 80 18 118/56 (76) 93 09/23/17 03:10 Nasal Cannula 3.00 09/23/17 02:17 75 09/23/17 01:39 79 09/23/17 00:29 88 09/22/17 23:00 98.3 80 18 124/59 (80) 94 09/22/17 23:00 Nasal Cannula 3.00 09/22/17 23:00 78 09/22/17 22:00 80 09/22/17 21:00 84 I/O 09/22/17 09/22/17 09/22/17 09/23/17 09/23/17 09/23/17 07:00 15:00 23:00 07:00 15:00 23:00 Intake Total 240 ml 360 ml 100 ml 720 ml Output Total 300 ml 3500 ml 400 ml 310 ml 200 ml Balance -60 ml -3500 ml -40 ml -210 ml 520 ml Intake Oral 240 ml 360 ml 100 ml 720 ml Output Urine Total 300 ml 400 ml 310 ml 200 ml Hemodialysis 3500 ml # Bowel Movements 0 0 Result Diagram: 09/23/1734509/23/17345 Objective Remarks GENERAL: MBMN WF, mild sob SKIN: Warm and dry. HEAD: Normocephalic. EYES: No scleral icterus. No injection or drainage. NECK: Supple, trachea midline. No JVD or lymphadenopathy. CARDIOVASCULAR: Regular rate and rhythm without murmurs, gallops, or rubs. RESPIRATORY: Breath sounds equal bilaterally. No accessory muscle use. GASTROINTESTINAL: Abdomen soft, non-tender, nondistended. MUSCULOSKELETAL: No cyanosis, or edema. BACK: Nontender without obvious deformity. No CVA tenderness. A/P Assessment and Plan COPD Hypoxia CHF CAD Decreased EF Anxiety renal failure PLAN: Aerosol nebs Diurease Monitor lytes Supplement 02 Will need complete PFT with diffusion and lung volumes as out pt OOB and ambulate. Nilesh Rossi MD Sep 23, 2017 20:43
[2017-09-23] MEDS: AZITHROMYCIN INJ 250 MG in SODIUM CHLOR 0.9% 250 ML INJ 250 ML IV SCH (21:19)
[2017-09-24] VITALS (23 sets, daily range): BP systolic 97–142; BP diastolic 57–65; PULSE 69–83; RESP 14–20; TEMP 97.4–99; O2SAT 94–99
[2017-09-24] MEDS: RESP: ALBUTEROL 2.5 MG/IPRATROPIUM 0.5 MG NEB (PRN) NEB ×2 (03:44→21:55)
[2017-09-24 06:11] LABS: AUTOMATED NEUTROPHIL # 5.2 TH/MM3 (1.8-7.7); HEMATOCRIT 32.8 % (35.0-46.0); HEMOGLOBIN 10.5 GM/DL (11.6-15.3); LYMPH % 10.9 % (9.0-44.0); LYMPHOCYTE # 0.7 TH/MM3 (1.0-4.8); MEAN CELL VOLUME 85.6 FL (80.0-100.0); MEAN CORPUSCULAR HEMOGLOBIN 27.3 PG (27.0-34.0); MEAN PLATELET VOLUME 9.2 FL (7.0-11.0); MONO % 6.2 % (0.0-8.0); MONOCYTE # 0.4 TH/MM3 (0-0.9); NEUT % 82.9 % (16.0-70.0); PLATELET COUNT 270 TH/MM3 (150-450); RED BLOOD COUNT 3.83 MIL/MM3 (4.00-5.30); RED CELL DISTRIBUTION WIDTH 18.4 % (11.6-17.2); WHITE BLOOD COUNT 6.3 TH/MM3 (4.0-11.0)
[2017-09-24 06:16] LABS: BICARBONATE 26.1 MEQ/L (21.0-32.0); CALCIUM 8.3 MG/DL (8.5-10.1); CREATININE 3.05 MG/DL (0.50-1.00)
[2017-09-24] MEDS: SODIUM CHLORIDE 0.9% FLUSH 10 ML FLUSH IV FLUSH SCH ×2 (08:00→21:33)
--- NOTE | 2017-09-24 08:00 | HHI.PR ---
Subjective Remarks In the chair. Feels sob and very tired. Nausea on/off. Patient ate pizza yesterday noncompliant with diet, her sons birthday was yesterday. Says she was sob all night. No fever or chills. Some cough nonproductive. No chest pain. More LE edema. Will go for HD. Objective Vitals Vital Signs Date Time Temp Pulse Resp B/P (MAP) Pulse Ox O2 Delivery O2 Flow Rate FiO2 09/24/17 06:02 72 09/24/17 05:50 72 09/24/17 04:14 70 09/24/17 03:43 99 Nasal Cannula 3.00 09/24/17 03:43 98.2 78 19 97/58 (71) 98 09/24/17 03:12 72 09/24/17 02:00 83 09/24/17 01:43 82 09/24/17 00:38 78 09/23/17 23:40 77 09/23/17 23:19 99 Nasal Cannula 3.00 09/23/17 23:19 98.4 76 20 84/51 (62) 99 09/23/17 22:00 74 09/23/17 21:34 98 Nasal Cannula 3.00 09/23/17 21:04 75 09/23/17 20:10 74 09/23/17 19:00 74 09/23/17 19:00 98.4 73 19 122/60 (80) 99 09/23/17 19:00 99 Nasal Cannula 3.00 09/23/17 18:00 75 09/23/17 17:00 72 09/23/17 16:00 73 09/23/17 15:00 74 09/23/17 15:00 97 3.00 09/23/17 15:00 98.4 73 16 115/56 (75) 97 09/23/17 14:00 72 09/23/17 13:00 73 09/23/17 12:00 70 09/23/17 11:00 68 09/23/17 11:00 94 3.00 09/23/17 11:00 97.6 69 14 126/56 (79) 100 09/23/17 10:21 98 Nasal Cannula 2.00 09/23/17 10:00 77 09/23/17 09:00 69 09/23/17 08:00 97.4 79 16 140/66 (90) 94 09/23/17 08:00 94 3.00 09/23/17 08:00 69 I/O 09/23/17 09/23/17 09/23/17 09/24/17 09/24/17 09/24/17 07:00 15:00 23:00 07:00 15:00 23:00 Intake Total 100 ml 720 ml 240 ml Output Total 310 ml 200 ml 0 ml Balance -210 ml 520 ml 240 ml Intake Oral 100 ml 720 ml 240 ml Output Urine Total 310 ml 200 ml 0 ml # Bowel Movements 0 0 Result Diagram: 09/24/17 0448 09/24/17 0448 Imaging Last Impressions Chest X-Ray 09/22/17 0600 Signed Impressions: Service Date/Time: Friday, September 22, 2017 03:37 - CONCLUSION: Layering effusions and consolidation. Nic Christianson MD Catheter Placement X-Ray 09/21/17 0000 Signed Impressions: Service Date/Time: Thursday, September 21, 2017 15:00 - CONCLUSION: Uncomplicated vas catheter placement via the right internal jugular vein. Bernard Duque MD Renal Ultrasound 09/17/17 0000 Signed Impressions: Service Date/Time: Sunday, September 17, 2017 18:45 - CONCLUSION: 1. No evidence of hydronephrosis. 2. There is some mild increased echogenicity of the renal parenchyma bilaterally. 3. There appears to be a 3 mm nonobstructing stone in each kidney. Gerry Jernigan MD Objective Remarks GENERAL: female sitting up in bed in mild distress SKIN: No rashes, ecchymoses or lesions. Cool and dry. HEAD: Atraumatic. Normocephalic. No temporal or scalp tenderness. EYES: Pupils equal round and reactive. Extraocular motions intact. No scleral icterus. No injection or drainage. ENT: Nose without bleeding, purulent drainage or septal hematoma. Throat without erythema, tonsillar hypertrophy or exudate. Uvula midline. Airway patent. NECK: Trachea midline. No JVD or lymphadenopathy. Supple, nontender, no meningeal signs. CARDIOVASCULAR: Regular rate and rhythm without murmurs, gallops, or rubs. RESPIRATORY: Bilateral crackles. Decreased breath sounds bilaterally in the lower lobes GASTROINTESTINAL: Abdomen soft, non-tender, nondistended. No hepato-splenomegaly , or palpable masses. No guarding. MUSCULOSKELETAL: 2+ pitting edema to the mid shins. No calf tenderness. Left foot amputation NEUROLOGICAL: Awake and alert. Cranial nerves II through XII intact. Motor and sensory grossly within normal limits. Normal speech. A/P Problem List: (1) CHF (congestive heart failure) ICD Code: I50.9 - Heart failure, unspecified Status: Acute (2) Pneumonia ICD Code: J18.9 - Pneumonia, unspecified organism Status: Acute (3) CAD (coronary artery disease) ICD Code: I25.10 - Atherosclerotic heart disease of [place] coronary artery without angina pectoris (4) Insulin dependent diabetes mellitus ICD Code: E11.9 - Type 2 diabetes mellitus without complications; Z79.4 - MCFP (current) use of insulin (5) Chronic kidney disease ICD Code: N18.9 - Chronic kidney disease, unspecified (6) Acute renal failure ICD Code: N17.9 - Acute kidney failure, unspecified Assessment and Plan 71-year-old female admitted secondary to CHF exacerbation. Found to have severe restrictive lung disease. Interstitial lung disease is present. Continue verapamil for hypertension. Received steroids for possible inflammatory component. Labs reviewed. No acute changes in CBC or BMP. Continue to monitor labs. Labs ordered for further monitoring. Restrictive lung disease Pulmonology following Received Steroids for possible inflammatory element Continue oxygen supplementation Further pulmonary function testing as an outpatient CHF with reduced EF 25% with exacerbation. Previously normal EF Cardiomyopathy This condition may be compounded by patient's hypertension and possible intrinsic lung disease Cardiology following Continue diuresis at lower dosing secondary to worsening renal function Continue oxygen supplementation ECHO with ejection fraction 25%, previously normal EF S/p Cardiac cath showing patent grafts, no lesions for intervention RHC showing high left sided filling pressures Nephrology consulted as worsening kidney function Added Coreg Hold MICHELLE-I/Spirolactone/Entresto due to kidney disease On HD Pneumonia Possible intrinsic lung disease Pulmonary hypertension Pulmonology has been consulted Continue oxygen supplementation Continue Rocephin Continue azithromycin Follow sputum cultures Chest pain/CAD Resolved Negative cardiac workup No need for stents and cardiac catheter. Insulin-dependent diabetes mellitus Sliding scale insulin as patient nothing by mouth Monitor blood glucose Diabetic diet Acute kidney injury on chronic kidney disease Nephrology consulted, recommendations appreciated Follow renal function Received dye with cardiac cath. On Lasix 40 mg BID. On Vitamin D supplements, Zemplar for HPTH Avoid nephrotoxins Started HD per nephrology Losartan and hydrochlorothiazide have been stopped Monitor I&Os CAD/PVD/HLD Continue aspirin and Plavix UA concerning for UTI Continue antibiotics Follow urine culture DVT prophylaxis Heparin Discussed with the patient, nurse DC plan : on HD Discharge when improved and cleared by consultants Problem Qualifiers (1) CHF (congestive heart failure): Qualified Codes: I50.23 - Acute on chronic systolic (congestive) heart failure (2) Chronic kidney disease: Qualified Codes: N18.4 - Chronic kidney disease, stage 4 (severe) Sailaja Hoffmann MD Sep 24, 2017 07:59
[2017-09-24] MEDS: TIOTROPIUM BROMIDE 18 MCG INH INH SCH (09:00)
[2017-09-24] MEDS: FUROSEMIDE 40 MG/4 ML VIAL IV PUSH SCH (09:00)
[2017-09-24] MEDS: LORATADINE 10 MG TAB PO SCH (09:00)
[2017-09-24] MEDS: guaiFENesin E.R. 600 MG TAB PO SCH ×2 (09:00→21:33)
--- NOTE | 2017-09-24 10:24 | HHI.NPPN ---
Subjective General Problems: Anemia, Edema Renal Failure: Chronic, Acute Additional Remarks Patient is alert,Cough positive, states she has rough night has shortness of breath BP low Review of Systems Musculoskeletal MS: Pain/Stiffness Objective Data Data Vital Signs Date Time Temp Pulse Resp B/P (MAP) Pulse Ox O2 Delivery O2 Flow Rate FiO2 09/24/17 08:08 Nasal Cannula 2.00 09/24/17 08:00 99.0 73 16 131/63 (85) 94 09/24/17 08:00 72 09/24/17 08:00 94 Nasal Cannula 2.00 09/24/17 07:00 73 09/24/17 06:02 72 09/24/17 05:50 72 09/24/17 04:14 70 09/24/17 03:43 99 Nasal Cannula 3.00 09/24/17 03:43 98.2 78 19 97/58 (71) 98 09/24/17 03:12 72 09/24/17 02:00 83 09/24/17 01:43 82 09/24/17 00:38 78 09/23/17 23:40 77 09/23/17 23:19 99 Nasal Cannula 3.00 09/23/17 23:19 98.4 76 20 84/51 (62) 99 09/23/17 22:00 74 09/23/17 21:34 98 Nasal Cannula 3.00 09/23/17 21:04 75 09/23/17 20:10 74 09/23/17 19:00 74 09/23/17 19:00 98.4 73 19 122/60 (80) 99 09/23/17 19:00 99 Nasal Cannula 3.00 09/23/17 18:00 75 09/23/17 17:00 72 09/23/17 16:00 73 09/23/17 15:00 74 09/23/17 15:00 97 3.00 09/23/17 15:00 98.4 73 16 115/56 (75) 97 09/23/17 14:00 72 09/23/17 13:00 73 09/23/17 12:00 70 09/23/17 11:00 68 09/23/17 11:00 94 3.00 09/23/17 11:00 97.6 69 14 126/56 (79) 100 -: 09/24/17 0448 09/24/17 0448 Physical Exam General Appearance: No Acute Distress, Comfortable Eyes Eye Exam: Pupils Equal Throat Throat Exam: Oral Mucosa [place] & Moist Pulmonary Resp Exam: No Distress, Decreased Bases, Diminished Breath Sounds Gastrointestinal/Abdomen GI Exam: Soft, Non-Tender, Bowel Sounds Present Extremeties Extremities Exam: Moderate Edema, Pitting Edema Neurologic Neuro Exam: Alert, Awake, Oriented Psychiatric Psych Exam: Appropriate Responses Assessment/Plan Problem List: (1) Acute renal failure ICD Codes: N17.9 - Acute kidney failure, unspecified Plan: Patient has recent exposure to dye 60 cc was used during heart catheterization Patient has chronic kidney disease and acute renal failure due to fluid fluctuation possible dye-induced on Lasix 40 mg BID. change to PO seen at dialysis 3 K UF 3.5 L as tolerated observe over weekend may need PermCath next week UTI E faecalis on Ceftriaxone Zithromax repeat c/s (2) Chronic kidney disease ICD Codes: N18.9 - Chronic kidney disease, unspecified (3) CHF (congestive heart failure) ICD Codes: I50.9 - Heart failure, unspecified Status: Acute Plan: Cardiology following on diuretic (4) CAD (coronary artery disease) ICD Codes: I25.10 - Atherosclerotic heart disease of [place] coronary artery without angina pectoris Plan: previous CABG (5) Insulin dependent diabetes mellitus ICD Codes: E11.9 - Type 2 diabetes mellitus without complications; 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
[2017-09-24] MEDS: HEPARIN SODIUM - IV 10,000 UNITS/10 ML VIAL PRN (11:29)
[2017-09-24] MEDS: INSULIN ASPART SUPPLEMENTAL SCALE SQ SCH ×3 (12:00→21:33)
--- NOTE | 2017-09-24 12:04 | PD.CARD.PN ---
Subjective Subjective Remarks Seen on HD Doing better Episode of SOB last night Objective Medications Current Medications Medications (Trade) Dose Ordered Sig/Briana Route Start Time Stop Time Status Last Admin (NS Flush) 2 ml UNSCH PRN IV FLUSH 09/09/17 22:00 (NS Flush) 2 ml BID IV FLUSH 09/10/17 09:00 09/24/17 08:00 (Tylenol) 650 mg Q4H PRN PO 09/09/17 22:00 09/21/17 00:46 (Zofran Inj) 4 mg Q6H PRN IVP 09/09/17 22:00 (Narcan Inj) 0.4 mg UNSCH PRN IV PUSH 09/09/17 22:00 (Milk Of Magnesia Liq) 30 ml Q12H PRN PO 09/09/17 22:00 09/15/17 20:29 (Senokot) 17.2 mg Q12H PRN PO 09/09/17 22:00 (Dulcolax Supp) 10 mg DAILY PRN RECTAL 09/09/17 22:00 (Lactulose Liq) 30 ml DAILY PRN PO 09/09/17 22:00 Ceftriaxone Sodium 1000 mg/ Sodium Chloride 100 ml @ 200 mls/hr Q24H IV 09/10/17 21:00 09/23/17 20:33 Azithromycin 250 mg/Sodium Chloride 250 ml @ 250 mls/hr Q24H IV 09/10/17 22:00 09/23/17 21:19 (D50w (Vial) Inj) 50 ml UNSCH PRN IV PUSH 09/09/17 22:15 (Glucagon Inj) 1 mg UNSCH PRN OTHER 09/09/17 22:15 (Duoneb Neb) 1 ampule Q4HR NEB PRN NEB 09/10/17 02:00 09/24/17 03:44 (Aspirin Chew) 81 mg DAILY CHEW 09/11/17 09:00 09/23/17 09:20 (Plavix) 75 mg DAILY PO 09/11/17 09:00 09/23/17 09:22 (Spiriva Inh) 18 mcg DAILY INH 09/11/17 09:00 09/23/17 09:20 (Claritin) 5 mg DAILY PO 09/11/17 09:00 09/23/17 09:21 (Pill Splitter) 1 ea UNSCH PRN OTHER 09/10/17 18:00 (Albuterol Neb) 2.5 mg Q6HR NEB PRN NEB 09/15/17 19:30 09/20/17 02:42 (Mucinex Er) 600 mg BID PO 09/15/17 21:00 09/23/17 20:34 (Isoptin) 40 mg DAILY PO 09/18/17 09:00 09/23/17 09:21 (Deltasone) 20 mg BID PO 09/18/17 09:00 09/26/17 08:59 09/23/17 20:34 (Coreg) 3.125 mg Q12HR PO 09/19/17 21:00 09/23/17 20:34 (Zemplar) 1 mcg DAILY PO 09/20/17 15:00 09/23/17 09:22 (Vitamin D3) 5,000 units DAILY PO 09/20/17 15:00 09/23/17 09:22 Sodium Chloride 1,000 ml @ 0 mls/hr Q0M PRN OTHER 09/21/17 12:34 (Heparin Inj) 8,000 units UNSCH PRN IV FLUSH 09/21/17 12:45 Sodium Chloride 1,000 ml @ 200 mls/hr Q5H PRN IV 09/21/17 12:34 Sodium Chloride 1,000 ml @ 0 mls/hr Q0M PRN OTHER 09/21/17 12:34 (Mannitol Inj) 12.5 gm UNSCH PRN IV 09/21/17 12:45 Albumin Human 100 ml @ 60 mls/hr UNSCH PRN IV 09/21/17 12:45 (NS Flush) 5 ml UNSCH PRN IV FLUSH 09/21/17 12:45 (Heparin Inj) UNSCH PRN .XX 09/21/17 12:45 09/24/17 11:29 (Gentamicin Inj) 20 mg UNSCH PRN OTHER 09/21/17 12:45 09/21/17 20:37 (Zofran Inj) 4 mg UNSCH PRN IV PUSH 09/21/17 12:45 (Tylenol) 650 mg UNSCH PRN PO 09/21/17 12:45 (Benadryl) 25 mg UNSCH PRN PO 09/21/17 12:45 (Nitrostat Sl) 0.4 mg UNSCH PRN SL 09/21/17 12:45 (Catapres) 0.1 mg UNSCH PRN PO 09/21/17 12:45 (Epogen Inj) 4,000 units UNSCH PRN IV PUSH 09/21/17 12:45 09/24/17 11:28 (Gelfoam 12 Mm/7 Mm Top) 1 foam UNSCH PRN TOP 09/21/17 12:45 (NS Flush) UNSCH PRN IV FLUSH 09/21/17 15:45 (Heparin Inj) UNSCH PRN IV FLUSH 09/21/17 15:45 (NovoLOG SUPPLEMENTAL SCALE) 1 ACHS SLIDING SCALE SQ 09/24/17 12:00 (Lasix) 40 mg BID@18 PO 09/24/17 18:00 Vital Signs / I&O Vital Signs Date Time Temp Pulse Resp B/P (MAP) Pulse Ox O2 Delivery O2 Flow Rate FiO2 09/24/17 08:08 Nasal Cannula 2.00 09/24/17 08:00 99.0 73 16 131/63 (85) 94 09/24/17 08:00 72 09/24/17 08:00 94 Nasal Cannula 2.00 09/24/17 07:00 73 09/24/17 06:02 72 09/24/17 05:50 72 09/24/17 04:14 70 09/24/17 03:43 99 Nasal Cannula 3.00 09/24/17 03:43 98.2 78 19 97/58 (71) 98 09/24/17 03:12 72 09/24/17 02:00 83 09/24/17 01:43 82 09/24/17 00:38 78 09/23/17 23:40 77 09/23/17 23:19 99 Nasal Cannula 3.00 09/23/17 23:19 98.4 76 20 84/51 (62) 99 09/23/17 22:00 74 09/23/17 21:34 98 Nasal Cannula 3.00 09/23/17 21:04 75 09/23/17 20:10 74 09/23/17 19:00 74 09/23/17 19:00 98.4 73 19 122/60 (80) 99 09/23/17 19:00 99 Nasal Cannula 3.00 09/23/17 18:00 75 09/23/17 17:00 72 09/23/17 16:00 73 09/23/17 15:00 74 09/23/17 15:00 97 3.00 09/23/17 15:00 98.4 73 16 115/56 (75) 97 09/23/17 14:00 72 09/23/17 13:00 73 I/O 09/23/17 09/23/17 09/23/17 09/24/17 09/24/17 09/24/17 07:00 15:00 23:00 07:00 15:00 23:00 Intake Total 100 ml 720 ml 240 ml Output Total 310 ml 200 ml 0 ml Balance -210 ml 520 ml 240 ml Intake Oral 100 ml 720 ml 240 ml Output Urine Total 310 ml 200 ml 0 ml # Bowel Movements 0 0 Physical Exam GENERAL: NAD, AAOx3 SKIN: Warm and dry. HEAD: Atraumatic. Normocephalic. EYES: Pupils equal and round. No scleral icterus. No injection or drainage. ENT: No nasal bleeding or discharge. Mucous membranes pink and moist. NECK: Trachea midline. No JVD. CARDIOVASCULAR: Regular rate and rhythm. RESPIRATORY: No accessory muscle use. Decreased breath sounds bilaterally GASTROINTESTINAL: Abdomen soft, non-tender, nondistended. Hepatic and splenic margins not palpable. MUSCULOSKELETAL: Extremities without clubbing, cyanosis, or edema. No obvious deformities. Right femoral no hematoma, distal pulses intact NEUROLOGICAL: Awake and alert. No obvious cranial nerve deficits. Motor grossly within normal limits. Five out of 5 muscle strength in the arms and legs. Normal speech. PSYCHIATRIC: Appropriate mood and affect; insight and judgment normal. Laboratory Laboratory Tests Test 09/24/17 04:48 White Blood Count 6.3 TH/MM3 Red Blood Count 3.83 MIL/MM3 Hemoglobin 10.5 GM/DL Hematocrit 32.8 % Mean Corpuscular Volume 85.6 FL Mean Corpuscular Hemoglobin 27.3 PG Mean Corpuscular Hemoglobin Concent 32.0 % Red Cell Distribution Width 18.4 % Platelet Count 270 TH/MM3 Mean Platelet Volume 9.2 FL Neutrophils (%) (Auto) 82.9 % Lymphocytes (%) (Auto) 10.9 % Monocytes (%) (Auto) 6.2 % Eosinophils (%) (Auto) 0.0 % Basophils (%) (Auto) 0.0 % Neutrophils # (Auto) 5.2 TH/MM3 Lymphocytes # (Auto) 0.7 TH/MM3 Monocytes # (Auto) 0.4 TH/MM3 Eosinophils # (Auto) 0.0 TH/MM3 Basophils # (Auto) 0.0 TH/MM3 CBC Comment DIFF FINAL Differential Comment Blood Urea Nitrogen 49 MG/DL Creatinine 3.05 MG/DL Random Glucose 161 MG/DL Calcium Level 8.3 MG/DL Sodium Level 135 MEQ/L Potassium Level 4.0 MEQ/L Chloride Level 99 MEQ/L Carbon Dioxide Level 26.1 MEQ/L Anion Gap 10 MEQ/L Estimat Glomerular Filtration Rate 15 ML/MIN Assessment and Plan Problem List: (1) CHF (congestive heart failure) ICD Codes: I50.9 - Heart failure, unspecified Status: Acute (2) Chronic kidney disease ICD Codes: N18.9 - Chronic kidney disease, unspecified (3) CAD (coronary artery disease) ICD Codes: I25.10 - Atherosclerotic heart disease of [place] coronary artery without angina pectoris Assessment and Plan 1) Acute on chronic CHF Echo showing decreased EF, previously normal EF Cardiac cath showing patent grafts, no lesions for intervention RHC showing high left sided filling pressures Coreg added No MICHELLE-I/Spirolactone/Entresto due to kidney disease Fluid management per nephrology 2) Rising creatinine Discussed with nephrology, HD started 3) CAD No lesions for intervention, con't medical management Con't ASA/Plavix 4) Intrinsic lung disease Pulmonology consulted, appreciated recommendations 5) No further cardiovascular issues, can be discharged from a cardiovascular perspective Will see PRN, if questions over the weekend, Dr. Pérez will be covering Problem Qualifiers (1) CHF (congestive heart failure): Qualified Codes: I50.23 - Acute on chronic systolic (congestive) heart failure (2) Chronic kidney disease: Qualified Codes: N18.4 - Chronic kidney disease, stage 4 (severe) Shravan Muniz DO Sep 24, 2017 12:04
[2017-09-24] MEDS: CLOPIDOGREL 75 MG TAB PO SCH (13:08)
[2017-09-24] MEDS: PARICALCITOL 1 MCG CAP PO SCH (13:08)
[2017-09-24] MEDS: predniSONE 20 MG TAB PO SCH ×2 (13:08→21:33)
[2017-09-24] MEDS: ASPIRIN 81 MG CHEW TAB CHEW SCH (13:08)
[2017-09-24] MEDS: CHOLECALCIFEROL (VIT D3) 5000 UNIT CAP PO SCH (13:08)
[2017-09-24] MEDS: CARVEDILOL 3.125 MG TAB PO SCH ×2 (13:14→21:33)
[2017-09-24] MEDS: VERAPAMIL HCL 40 MG TAB PO SCH (13:14)
[2017-09-24 17:00] LABS: HEMOGLOBIN A1C 7.5 % (4.3-6.0)
--- NOTE | 2017-09-24 17:47 | HHI.PR ---
Subjective Remarks 71 YOWF with COPD,CAD,CHF. decreased EF Was feeling much better but became sob with walking ABG showes hypoxia No CP PFT suggestive of severe restrictve dis Slept better Had HD yesterday, feels much better BS high Objective Vital Signs Vital Signs Date Time Temp Pulse Resp B/P (MAP) Pulse Ox O2 Delivery O2 Flow Rate FiO2 09/24/17 16:00 72 09/24/17 15:00 75 09/24/17 15:00 95 Nasal Cannula 3.00 09/24/17 15:00 97.4 74 14 142/65 (90) 95 09/24/17 14:00 78 09/24/17 13:00 82 09/24/17 08:08 Nasal Cannula 2.00 09/24/17 08:00 99.0 73 16 131/63 (85) 94 09/24/17 08:00 72 09/24/17 08:00 94 Nasal Cannula 2.00 09/24/17 07:00 73 09/24/17 06:02 72 09/24/17 05:50 72 09/24/17 04:14 70 09/24/17 03:43 99 Nasal Cannula 3.00 09/24/17 03:43 98.2 78 19 97/58 (71) 98 09/24/17 03:12 72 09/24/17 02:00 83 09/24/17 01:43 82 09/24/17 00:38 78 09/23/17 23:40 77 09/23/17 23:19 99 Nasal Cannula 3.00 09/23/17 23:19 98.4 76 20 84/51 (62) 99 09/23/17 22:00 74 09/23/17 21:34 98 Nasal Cannula 3.00 09/23/17 21:04 75 09/23/17 20:10 74 09/23/17 19:00 74 09/23/17 19:00 98.4 73 19 122/60 (80) 99 09/23/17 19:00 99 Nasal Cannula 3.00 09/23/17 18:00 75 I/O 09/23/17 09/23/17 09/23/17 09/24/17 09/24/17 09/24/17 07:00 15:00 23:00 07:00 15:00 23:00 Intake Total 100 ml 720 ml 240 ml Output Total 310 ml 200 ml 0 ml 3500 ml Balance -210 ml 520 ml 240 ml -3500 ml Intake Oral 100 ml 720 ml 240 ml Output Urine Total 310 ml 200 ml 0 ml Hemodialysis 3500 ml # Bowel Movements 0 0 Result Diagram: 09/24/1744709/24/17447 Objective Remarks GENERAL: MBMN WF, mild sob SKIN: Warm and dry. HEAD: Normocephalic. EYES: No scleral icterus. No injection or drainage. NECK: Supple, trachea midline. No JVD or lymphadenopathy. CARDIOVASCULAR: Regular rate and rhythm without murmurs, gallops, or rubs. RESPIRATORY: Breath sounds equal bilaterally. No accessory muscle use. GASTROINTESTINAL: Abdomen soft, non-tender, nondistended. MUSCULOSKELETAL: No cyanosis, or edema. BACK: Nontender without obvious deformity. No CVA tenderness. A/P Assessment and Plan COPD Hypoxia CHF CAD Decreased EF Anxiety renal failure PLAN: Aerosol nebs Diurease Monitor lytes Supplement 02 Will need complete PFT with diffusion and lung volumes as out pt OOB and ambulate. Available prn over weekend. Nilesh Rossi MD Sep 24, 2017 17:47
[2017-09-24] MEDS: FUROSEMIDE 40 MG TAB PO SCH (18:21)
[2017-09-24] MEDS: cefTRIAXone INJ 1,000 MG in SODIUM CHLORIDE 0.9% INJ 100 ML IV SCH (21:33)
[2017-09-24] MEDS: AZITHROMYCIN INJ 250 MG in SODIUM CHLOR 0.9% 250 ML INJ 250 ML IV SCH (22:00)
[2017-09-25] VITALS (29 sets, daily range): BP systolic 105–129; BP diastolic 55–84; PULSE 64–78; RESP 17–20; TEMP 97.4–98.4; O2SAT 0–100
[2017-09-25 00:07] LABS: AMORPHOUS SEDIMENT, URINE RARE; BILIRUBIN, URINE NEG (NEG); BLOOD, URINE NEG (NEG); GLUCOSE,URINE 70 mg/dL (NEG); KETONE, URINE NEG (NEG); MUCUS URINE FEW /lpf (OCC); NITRITE,URINE NEG (NEG); PH, URINE 5.5 (5.0-8.5); SQUAMOUS EPITHELIAL CELL URINE 3 /hpf (0-5); URINE COLOR YELLOW (YELLW/STRAW); URINE LEUKOCYTE ESTERASE LARGE (NEG)
[2017-09-25 05:14] LABS: AUTOMATED NEUTROPHIL # 4.5 TH/MM3 (1.8-7.7); BASOPHIL % 0.1 % (0.0-2.0); HEMATOCRIT 32.5 % (35.0-46.0); HEMOGLOBIN 10.2 GM/DL (11.6-15.3); LYMPH % 9.8 % (9.0-44.0); LYMPHOCYTE # 0.5 TH/MM3 (1.0-4.8); MEAN CELL VOLUME 85.7 FL (80.0-100.0); MEAN CORPUSCULAR HEMOGLOBIN 26.8 PG (27.0-34.0); MEAN CORPUSCULAR HGB CONC 31.3 % (32.0-36.0); MEAN PLATELET VOLUME 9.2 FL (7.0-11.0); MONO % 5.6 % (0.0-8.0); MONOCYTE # 0.3 TH/MM3 (0-0.9); NEUT % 84.5 % (16.0-70.0); PLATELET COUNT 266 TH/MM3 (150-450); RED CELL DISTRIBUTION WIDTH 18.3 % (11.6-17.2); WHITE BLOOD COUNT 5.4 TH/MM3 (4.0-11.0)
[2017-09-25 05:21] LABS: BICARBONATE 30.5 MEQ/L (21.0-32.0); CALCIUM 8.5 MG/DL (8.5-10.1); CREATININE 2.68 MG/DL (0.50-1.00)
--- NOTE | 2017-09-25 08:17 | HHI.PR ---
Subjective Remarks Feels better today, says she had HD yesterday and feels a little better after HD. Still with sob. Did urinate overnight. Still nauseated but able to eat some. No n/v/d/c. Denies chest pain. With LE edema. Objective Vitals Vital Signs Date Time Temp Pulse Resp B/P (MAP) Pulse Ox O2 Delivery O2 Flow Rate FiO2 09/25/17 06:08 69 09/25/17 05:25 69 09/25/17 04:06 70 09/25/17 03:06 97.4 68 17 115/57 (76) 98 09/25/17 03:06 69 09/25/17 03:06 98 Nasal Cannula 3.00 09/25/17 02:01 70 09/25/17 01:18 71 09/25/17 00:08 74 09/24/17 23:35 98.1 75 20 141/64 (89) 99 09/24/17 23:35 99 Nasal Cannula 3.00 09/24/17 23:00 74 09/24/17 22:00 72 09/24/17 21:57 95 Nasal Cannula 3.00 09/24/17 21:00 72 09/24/17 20:24 69 09/24/17 19:53 74 09/24/17 19:53 95 Nasal Cannula 3.00 09/24/17 19:53 97.8 70 17 105/57 (73) 95 09/24/17 18:00 71 09/24/17 17:00 72 09/24/17 16:00 72 09/24/17 15:00 75 09/24/17 15:00 95 Nasal Cannula 3.00 09/24/17 15:00 97.4 74 14 142/65 (90) 95 09/24/17 14:00 78 09/24/17 13:00 82 I/O 09/24/17 09/24/17 09/24/17 09/25/17 09/25/17 09/25/17 07:00 15:00 23:00 07:00 15:00 23:00 Intake Total 240 ml 960 ml 390 ml Output Total 0 ml 3500 ml 0 ml 300 ml Balance 240 ml -3500 ml 960 ml 90 ml Intake Oral 240 ml 960 ml 390 ml Output Urine Total 0 ml 0 ml 300 ml Hemodialysis 3500 ml # Voids 0 # Bowel Movements 0 Result Diagram: 09/25/17 0414 09/25/17 0414 Imaging Last Impressions Chest X-Ray 09/22/17 0600 Signed Impressions: Service Date/Time: Friday, September 22, 2017 03:37 - CONCLUSION: Layering effusions and consolidation. Nic Christianson MD Catheter Placement X-Ray 09/21/17 0000 Signed Impressions: Service Date/Time: Thursday, September 21, 2017 15:00 - CONCLUSION: Uncomplicated vas catheter placement via the right internal jugular vein. Bernard Duque MD Renal Ultrasound 09/17/17 0000 Signed Impressions: Service Date/Time: Sunday, September 17, 2017 18:45 - CONCLUSION: 1. No evidence of hydronephrosis. 2. There is some mild increased echogenicity of the renal parenchyma bilaterally. 3. There appears to be a 3 mm nonobstructing stone in each kidney. Gerry Jernigan MD Objective Remarks GENERAL: female sitting up in bed in mild distress SKIN: No rashes, ecchymoses or lesions. Cool and dry. HEAD: Atraumatic. Normocephalic. No temporal or scalp tenderness. EYES: Pupils equal round and reactive. Extraocular motions intact. No scleral icterus. No injection or drainage. ENT: Nose without bleeding, purulent drainage or septal hematoma. Throat without erythema, tonsillar hypertrophy or exudate. Uvula midline. Airway patent. NECK: Trachea midline. No JVD or lymphadenopathy. Supple, nontender, no meningeal signs. CARDIOVASCULAR: Regular rate and rhythm without murmurs, gallops, or rubs. RESPIRATORY: Bilateral crackles. Decreased breath sounds bilaterally in the lower lobes GASTROINTESTINAL: Abdomen soft, non-tender, nondistended. No hepato-splenomegaly , or palpable masses. No guarding. MUSCULOSKELETAL: 2+ pitting edema to the mid shins. No calf tenderness. Left foot amputation NEUROLOGICAL: Awake and alert. Cranial nerves II through XII intact. Motor and sensory grossly within normal limits. Normal speech. A/P Problem List: (1) CHF (congestive heart failure) ICD Code: I50.9 - Heart failure, unspecified Status: Acute (2) Pneumonia ICD Code: J18.9 - Pneumonia, unspecified organism Status: Acute (3) CAD (coronary artery disease) ICD Code: I25.10 - Atherosclerotic heart disease of [place] coronary artery without angina pectoris (4) Insulin dependent diabetes mellitus ICD Code: E11.9 - Type 2 diabetes mellitus without complications; Z79.4 - [facility]PC (current) use of insulin (5) Chronic kidney disease ICD Code: N18.9 - Chronic kidney disease, unspecified (6) Acute renal failure ICD Code: N17.9 - Acute kidney failure, unspecified Assessment and Plan 71-year-old female admitted secondary to CHF exacerbation. Found to have severe restrictive lung disease. Interstitial lung disease is present. Continue verapamil for hypertension. Received steroids for possible inflammatory component. Labs reviewed. No acute changes in CBC or BMP. Continue to monitor labs. Labs ordered for further monitoring. Restrictive lung disease Pulmonology following Received Steroids for possible inflammatory element Continue oxygen supplementation Further pulmonary function testing as an outpatient CHF with reduced EF 25% with exacerbation. Previously normal EF Cardiomyopathy This condition may be compounded by patient's hypertension and possible intrinsic lung disease Cardiology following Continue diuresis at lower dosing secondary to worsening renal function Continue oxygen supplementation ECHO with ejection fraction 25%, previously normal EF S/p Cardiac cath showing patent grafts, no lesions for intervention RHC showing high left sided filling pressures Nephrology consulted as worsening kidney function Added Coreg Hold MICHELLE-I/Spirolactone/Entresto due to kidney disease On HD Pneumonia Possible intrinsic lung disease Pulmonary hypertension Pulmonology has been consulted Continue oxygen supplementation Continue Rocephin Continue azithromycin Follow sputum cultures Chest pain/CAD Resolved Negative cardiac workup No need for stents and cardiac catheterization. Insulin-dependent diabetes mellitus Sliding scale insulin, certified diabetes educator Monitor blood glucose Diabetic diet Acute kidney injury on chronic kidney disease Nephrology consulted, recommendations appreciated Follow renal function Received dye with cardiac cath. On Lasix 40 mg BID. On Vitamin D supplements, Zemplar for HPTH Avoid nephrotoxins Started HD per nephrology Losartan and hydrochlorothiazide have been stopped Monitor I&Os CAD/PVD/HLD Continue aspirin and Plavix UA concerning for UTI Continue antibiotics Follow urine culture DVT prophylaxis Heparin Discussed with the patient, nurse DC plan : on HD Discharge when improved and cleared by consultants Problem Qualifiers (1) CHF (congestive heart failure): Qualified Codes: I50.23 - Acute on chronic systolic (congestive) heart failure (2) Chronic kidney disease: Qualified Codes: N18.4 - Chronic kidney disease, stage 4 (severe) Sailaja Hoffmann MD Sep 25, 2017 08:17
[2017-09-25] MEDS: PARICALCITOL 1 MCG CAP PO SCH (10:10)
[2017-09-25] MEDS: LORATADINE 10 MG TAB PO SCH (10:10)
[2017-09-25] MEDS: FUROSEMIDE 40 MG TAB PO SCH ×2 (10:10→17:38)
[2017-09-25] MEDS: guaiFENesin E.R. 600 MG TAB PO SCH ×2 (10:11→20:28)
[2017-09-25] MEDS: VERAPAMIL HCL 40 MG TAB PO SCH (10:11)
[2017-09-25] MEDS: CLOPIDOGREL 75 MG TAB PO SCH (10:11)
[2017-09-25] MEDS: CHOLECALCIFEROL (VIT D3) 5000 UNIT CAP PO SCH (10:11)
[2017-09-25] MEDS: CARVEDILOL 3.125 MG TAB PO SCH ×2 (10:11→20:29)
[2017-09-25] MEDS: predniSONE 20 MG TAB PO SCH ×2 (10:11→20:29)
[2017-09-25] MEDS: SODIUM CHLORIDE 0.9% FLUSH 10 ML FLUSH IV FLUSH SCH ×2 (10:12→20:29)
[2017-09-25] MEDS: TIOTROPIUM BROMIDE 18 MCG INH INH SCH (10:12)
[2017-09-25] MEDS: ASPIRIN 81 MG CHEW TAB CHEW SCH (10:12)
[2017-09-25] MEDS: INSULIN ASPART SUPPLEMENTAL SCALE SQ SCH ×4 (10:17→20:29)
--- NOTE | 2017-09-25 14:22 | HHI.NPPN ---
Subjective General Problems: Anemia, Edema Renal Failure: Chronic, Acute Additional Remarks Patient is alert,Cough positive, states feels better Review of Systems Musculoskeletal MS: Pain/Stiffness Objective Data Data Vital Signs Date Time Temp Pulse Resp B/P (MAP) Pulse Ox O2 Delivery O2 Flow Rate FiO2 09/25/17 14:04 64 09/25/17 13:00 66 09/25/17 12:00 64 09/25/17 11:33 97.6 68 18 125/61 (82) 0 09/25/17 11:33 100 Nasal Cannula 2.00 09/25/17 11:01 70 09/25/17 10:00 72 09/25/17 09:50 97.5 69 18 129/84 (99) 99 09/25/17 09:50 99 Nasal Cannula 3.00 09/25/17 09:00 68 09/25/17 08:16 95 Nasal Cannula 3.00 09/25/17 08:00 74 09/25/17 07:01 71 09/25/17 06:08 69 09/25/17 05:25 69 09/25/17 04:06 70 09/25/17 03:06 97.4 68 17 115/57 (76) 98 09/25/17 03:06 69 09/25/17 03:06 98 Nasal Cannula 3.00 09/25/17 02:01 70 09/25/17 01:18 71 09/25/17 00:08 74 09/24/17 23:35 98.1 75 20 141/64 (89) 99 09/24/17 23:35 99 Nasal Cannula 3.00 09/24/17 23:00 74 09/24/17 22:00 72 09/24/17 21:57 95 Nasal Cannula 3.00 09/24/17 21:00 72 09/24/17 20:24 69 09/24/17 19:53 74 09/24/17 19:53 95 Nasal Cannula 3.00 09/24/17 19:53 97.8 70 17 105/57 (73) 95 09/24/17 18:00 71 09/24/17 17:00 72 09/24/17 16:00 72 09/24/17 15:00 75 09/24/17 15:00 95 Nasal Cannula 3.00 09/24/17 15:00 97.4 74 14 142/65 (90) 95 -: 09/25/17 0414 09/25/17 0414 Microbiology 09/24/17 Urine Culture, Received Pending Physical Exam General Appearance: No Acute Distress, Comfortable Eyes Eye Exam: Pupils Equal Throat Throat Exam: Oral Mucosa Griffith & Moist Pulmonary Resp Exam: No Distress, Decreased Bases, Diminished Breath Sounds Gastrointestinal/Abdomen GI Exam: Soft, Non-Tender, Bowel Sounds Present Extremeties Extremities Exam: Moderate Edema, Pitting Edema Neurologic Neuro Exam: Alert, Awake, Oriented Psychiatric Psych Exam: Appropriate Responses Assessment/Plan Problem List: (1) Acute renal failure ICD Codes: N17.9 - Acute kidney failure, unspecified Plan: Patient has recent exposure to dye 60 cc was used during heart catheterization Patient has chronic kidney disease and acute renal failure due to fluid fluctuation possible dye-induced on Lasix 40 mg PO Bid follow urine culture follow BMP wait for ARF to resolve (2) Chronic kidney disease ICD Codes: N18.9 - Chronic kidney disease, unspecified (3) CHF (congestive heart failure) ICD Codes: I50.9 - Heart failure, unspecified Status: Acute Plan: Cardiology following on diuretic (4) CAD (coronary artery disease) ICD Codes: I25.10 - Atherosclerotic heart disease of [place] coronary artery without angina pectoris Plan: previous CABG (5) Insulin dependent diabetes mellitus ICD Codes: E11.9 - Type 2 diabetes mellitus without complications; 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
[2017-09-25] MEDS: RESP: ALBUTEROL 2.5 MG/IPRATROPIUM 0.5 MG NEB (PRN) NEB (20:13)
[2017-09-25] MEDS: cefTRIAXone INJ 1,000 MG in SODIUM CHLORIDE 0.9% INJ 100 ML IV SCH (20:28)
[2017-09-25] MEDS: AZITHROMYCIN INJ 250 MG in SODIUM CHLOR 0.9% 250 ML INJ 250 ML IV SCH (21:46)
[2017-09-26] VITALS (27 sets, daily range): BP systolic 111–141; BP diastolic 55–71; PULSE 67–75; RESP 16–21; TEMP 95.7–98; O2SAT 95–100
[2017-09-26] MEDS: RESP: ALBUTEROL 2.5 MG/IPRATROPIUM 0.5 MG NEB (PRN) NEB ×3 (00:51→23:17)
[2017-09-26 07:00] LABS: BASOPHIL % 0.3 % (0.0-2.0); HEMATOCRIT 33.1 % (35.0-46.0); HEMOGLOBIN 10.6 GM/DL (11.6-15.3); LYMPH % 8.4 % (9.0-44.0); LYMPHOCYTE # 0.6 TH/MM3 (1.0-4.8); MEAN CORPUSCULAR HEMOGLOBIN 27.1 PG (27.0-34.0); MEAN CORPUSCULAR HGB CONC 31.9 % (32.0-36.0); MEAN PLATELET VOLUME 9.4 FL (7.0-11.0); MONO % 6.1 % (0.0-8.0); MONOCYTE # 0.4 TH/MM3 (0-0.9); NEUT % 85.2 % (16.0-70.0); PLATELET COUNT 228 TH/MM3 (150-450); RED BLOOD COUNT 3.89 MIL/MM3 (4.00-5.30); RED CELL DISTRIBUTION WIDTH 18.1 % (11.6-17.2)
[2017-09-26 07:26] LABS: BICARBONATE 27.4 MEQ/L (21.0-32.0); CALCIUM 8.5 MG/DL (8.5-10.1); CREATININE 2.82 MG/DL (0.50-1.00)
[2017-09-26] MEDS: INSULIN ASPART SUPPLEMENTAL SCALE SQ SCH ×4 (08:00→20:42)
--- NOTE | 2017-09-26 09:09 | HHI.PR ---
Subjective Remarks Shortness of breath. Denies any chest pain at this time. Some hearing urinated 3 times yesterday. Still on dialysis. Still with nausea and vomiting. Not eating much, decreased appetite. Objective Vitals Vital Signs Date Time Temp Pulse Resp B/P (MAP) Pulse Ox O2 Delivery O2 Flow Rate FiO2 09/26/17 07:00 100 Nasal Cannula 3.00 09/26/17 06:39 69 09/26/17 05:00 70 09/26/17 04:12 69 09/26/17 03:25 67 09/26/17 03:20 98 Nasal Cannula 3.00 09/26/17 03:20 98.0 67 21 135/66 (89) 98 09/26/17 02:07 68 09/26/17 01:00 67 09/26/17 00:52 98 Nasal Cannula 3.00 09/26/17 00:19 69 09/25/17 23:50 71 09/25/17 23:50 98 Nasal Cannula 3.00 09/25/17 23:50 98.4 69 19 105/55 (72) 98 09/25/17 22:08 69 09/25/17 21:14 69 09/25/17 20:13 97 Nasal Cannula 3.00 09/25/17 20:00 68 09/25/17 19:00 78 09/25/17 19:00 100 Nasal Cannula 3.00 09/25/17 19:00 98.1 69 20 127/60 (82) 100 09/25/17 18:06 66 09/25/17 17:00 66 09/25/17 16:00 68 09/25/17 15:08 97.6 69 18 108/60 (76) 99 09/25/17 15:08 99 Nasal Cannula 2.00 09/25/17 15:00 71 09/25/17 14:04 64 09/25/17 13:00 66 09/25/17 12:00 64 09/25/17 11:33 97.6 68 18 125/61 (82) 0 09/25/17 11:33 100 Nasal Cannula 2.00 09/25/17 11:01 70 09/25/17 10:00 72 09/25/17 09:50 97.5 69 18 129/84 (99) 99 09/25/17 09:50 99 Nasal Cannula 3.00 I/O 09/25/17 09/25/17 09/25/17 09/26/17 09/26/17 09/26/17 07:00 15:00 23:00 07:00 15:00 23:00 Intake Total 390 ml 700 ml 480 ml Output Total 300 ml 300 ml 275 ml Balance 90 ml 400 ml 205 ml Intake Oral 390 ml 600 ml 480 ml IV Total 100 ml Output Urine Total 300 ml 300 ml 275 ml # Voids 1 # Bowel Movements 1 0 Result Diagram: 09/26/17 0632 09/26/17 0632 Imaging Last Impressions Chest X-Ray 09/22/17 0600 Signed Impressions: Service Date/Time: Friday, September 22, 2017 03:37 - CONCLUSION: Layering effusions and consolidation. Nic Christianson MD Catheter Placement X-Ray 09/21/17 0000 Signed Impressions: Service Date/Time: Thursday, September 21, 2017 15:00 - CONCLUSION: Uncomplicated vas catheter placement via the right internal jugular vein. Bernard Duque MD Renal Ultrasound 09/17/17 0000 Signed Impressions: Service Date/Time: Sunday, September 17, 2017 18:45 - CONCLUSION: 1. No evidence of hydronephrosis. 2. There is some mild increased echogenicity of the renal parenchyma bilaterally. 3. There appears to be a 3 mm nonobstructing stone in each kidney. Gerry Jernigan MD Objective Remarks GENERAL: female sitting up in bed in mild distress SKIN: No rashes, ecchymoses or lesions. Cool and dry. HEAD: Atraumatic. Normocephalic. No temporal or scalp tenderness. EYES: Pupils equal round and reactive. Extraocular motions intact. No scleral icterus. No injection or drainage. ENT: Nose without bleeding, purulent drainage or septal hematoma. Throat without erythema, tonsillar hypertrophy or exudate. Uvula midline. Airway patent. NECK: Trachea midline. No JVD or lymphadenopathy. Supple, nontender, no meningeal signs. CARDIOVASCULAR: Regular rate and rhythm without murmurs, gallops, or rubs. RESPIRATORY: Bilateral crackles. Decreased breath sounds bilaterally in the lower lobes GASTROINTESTINAL: Abdomen soft, non-tender, nondistended. No hepato-splenomegaly , or palpable masses. No guarding. MUSCULOSKELETAL: 2+ pitting edema to the mid shins. No calf tenderness. Left foot amputation NEUROLOGICAL: Awake and alert. Cranial nerves II through XII intact. Motor and sensory grossly within normal limits. Normal speech. A/P Problem List: (1) CHF (congestive heart failure) ICD Code: I50.9 - Heart failure, unspecified Status: Acute (2) Pneumonia ICD Code: J18.9 - Pneumonia, unspecified organism Status: Acute (3) CAD (coronary artery disease) ICD Code: I25.10 - Atherosclerotic heart disease of [place] coronary artery without angina pectoris (4) Insulin dependent diabetes mellitus ICD Code: E11.9 - Type 2 diabetes mellitus without complications; Z79.4 - [facility] (current) use of insulin (5) Chronic kidney disease ICD Code: N18.9 - Chronic kidney disease, unspecified (6) Acute renal failure ICD Code: N17.9 - Acute kidney failure, unspecified Assessment and Plan 71-year-old female admitted secondary to CHF exacerbation. Found to have severe restrictive lung disease. Interstitial lung disease is present. Continue verapamil for hypertension. Received steroids for possible inflammatory component. Labs reviewed. No acute changes in CBC or BMP. Continue to monitor labs. Labs ordered for further monitoring. Restrictive lung disease Pulmonology following Received Steroids for possible inflammatory element Continue oxygen supplementation Further pulmonary function testing as an outpatient CHF with reduced EF 25% with exacerbation. Previously normal EF Cardiomyopathy This condition may be compounded by patient's hypertension and possible intrinsic lung disease Cardiology following Continue diuresis at lower dosing secondary to worsening renal function Continue oxygen supplementation ECHO with ejection fraction 25%, previously normal EF S/p Cardiac cath showing patent grafts, no lesions for intervention RHC showing high left sided filling pressures Nephrology consulted as worsening kidney function Added Coreg Hold MICHELLE-I/Spirolactone/Entresto due to kidney disease On HD Pneumonia Possible intrinsic lung disease Pulmonary hypertension Pulmonology has been consulted Continue oxygen supplementation Continue Rocephin Continue azithromycin Follow sputum cultures Chest pain/CAD Resolved Negative cardiac workup No need for stents and cardiac catheterization. Insulin-dependent diabetes mellitus Sliding scale insulin, art educator Monitor blood glucose Diabetic diet Acute kidney injury on chronic kidney disease Nephrology consulted, recommendations appreciated Follow renal function Received dye with cardiac cath. On Lasix 40 mg BID. On Vitamin D supplements, Zemplar for HPTH Avoid nephrotoxins Started HD per nephrology Losartan and hydrochlorothiazide have been stopped Monitor I&Os CAD/PVD/HLD Continue aspirin and Plavix UA concerning for UTI Continue antibiotics Follow urine culture DVT prophylaxis Heparin Discussed with the patient, nurse DC plan : on HD Discharge when improved and cleared by consultants Problem Qualifiers (1) CHF (congestive heart failure): Qualified Codes: I50.23 - Acute on chronic systolic (congestive) heart failure (2) Chronic kidney disease: Qualified Codes: N18.4 - Chronic kidney disease, stage 4 (severe) Sailaja Hoffmann MD Sep 26, 2017 09:09
[2017-09-26] MEDS: CHOLECALCIFEROL (VIT D3) 5000 UNIT CAP PO SCH (09:31)
[2017-09-26] MEDS: VERAPAMIL HCL 40 MG TAB PO SCH (09:32)
[2017-09-26] MEDS: ASPIRIN 81 MG CHEW TAB CHEW SCH (09:32)
[2017-09-26] MEDS: LORATADINE 10 MG TAB PO SCH (09:32)
[2017-09-26] MEDS: FUROSEMIDE 40 MG TAB PO SCH ×2 (09:32→17:48)
[2017-09-26] MEDS: PARICALCITOL 1 MCG CAP PO SCH (09:32)
[2017-09-26] MEDS: guaiFENesin E.R. 600 MG TAB PO SCH ×2 (09:32→20:42)
[2017-09-26] MEDS: CARVEDILOL 3.125 MG TAB PO SCH ×2 (09:32→20:41)
[2017-09-26] MEDS: CLOPIDOGREL 75 MG TAB PO SCH (09:32)
[2017-09-26] MEDS: SODIUM CHLORIDE 0.9% FLUSH 10 ML FLUSH IV FLUSH SCH ×2 (09:33→20:43)
[2017-09-26] MEDS: TIOTROPIUM BROMIDE 18 MCG INH INH SCH (09:33)
--- NOTE | 2017-09-26 12:45 | HHI.NPPN ---
Subjective General Problems: Anemia, Edema Renal Failure: Chronic, Acute Additional Remarks Patient is alert,Cough positive, states feels better Review of Systems Musculoskeletal MS: Pain/Stiffness Objective Data Data Vital Signs Date Time Temp Pulse Resp B/P (MAP) Pulse Ox O2 Delivery O2 Flow Rate FiO2 09/26/17 12:42 97 Nasal Cannula 2.00 09/26/17 12:00 68 09/26/17 11:18 97.3 73 18 111/57 (75) 95 09/26/17 11:18 95 Nasal Cannula 1.50 09/26/17 11:00 72 09/26/17 10:00 69 09/26/17 09:00 72 09/26/17 08:00 70 09/26/17 07:00 70 09/26/17 07:00 100 Nasal Cannula 3.00 09/26/17 07:00 96.8 71 16 141/71 (94) 100 09/26/17 06:39 69 09/26/17 05:00 70 09/26/17 04:12 69 09/26/17 03:25 67 09/26/17 03:20 98 Nasal Cannula 3.00 09/26/17 03:20 98.0 67 21 135/66 (89) 98 09/26/17 02:07 68 09/26/17 01:00 67 09/26/17 00:52 98 Nasal Cannula 3.00 09/26/17 00:19 69 09/25/17 23:50 71 09/25/17 23:50 98 Nasal Cannula 3.00 09/25/17 23:50 98.4 69 19 105/55 (72) 98 09/25/17 22:08 69 09/25/17 21:14 69 09/25/17 20:13 97 Nasal Cannula 3.00 09/25/17 20:00 68 09/25/17 19:00 78 09/25/17 19:00 100 Nasal Cannula 3.00 09/25/17 19:00 98.1 69 20 127/60 (82) 100 09/25/17 18:06 66 09/25/17 17:00 66 09/25/17 16:00 68 09/25/17 15:08 97.6 69 18 108/60 (76) 99 09/25/17 15:08 99 Nasal Cannula 2.00 2/17/18 15:00 71 09/25/17 14:04 64 09/25/17 13:00 66 -: 09/26/17 0632 09/26/17 0632 Physical Exam General Appearance: No Acute Distress, Comfortable Eyes Eye Exam: Pupils Equal Throat Throat Exam: Oral Mucosa [place] & Moist Pulmonary Resp Exam: No Distress, Decreased Bases, Diminished Breath Sounds Gastrointestinal/Abdomen GI Exam: Soft, Non-Tender, Bowel Sounds Present Extremeties Extremities Exam: Moderate Edema, Pitting Edema Neurologic Neuro Exam: Alert, Awake, Oriented Psychiatric Psych Exam: Appropriate Responses Assessment/Plan Problem List: (1) Acute renal failure ICD Codes: N17.9 - Acute kidney failure, unspecified Plan: Patient has recent exposure to dye 60 cc was used during heart catheterization Patient has chronic kidney disease and acute renal failure due to fluid fluctuation possible dye-induced on Lasix 40 mg PO Bid Cr 2.8 follow urine culture follow Renal Panel wait for ARF to resolve (2) Chronic kidney disease ICD Codes: N18.9 - Chronic kidney disease, unspecified (3) CHF (congestive heart failure) ICD Codes: I50.9 - Heart failure, unspecified Status: Acute Plan: Cardiology following on diuretic (4) CAD (coronary artery disease) ICD Codes: I25.10 - Atherosclerotic heart disease of [place] coronary artery without angina pectoris Plan: previous CABG (5) Insulin dependent diabetes mellitus ICD Codes: E11.9 - Type 2 diabetes mellitus without complications; 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
[2017-09-26] MEDS ORDERED: VITAMIN B CMPLX/VITC/FOLIC AC CAP PO ONE (13:15)
[2017-09-26] MEDS: MAGNESIUM HYDROXIDE SUSP 30 ML CUP PO PRN (15:50)
[2017-09-26] MEDS: cefTRIAXone INJ 1,000 MG in SODIUM CHLORIDE 0.9% INJ 100 ML IV SCH (20:42)
[2017-09-26] MEDS: AZITHROMYCIN INJ 250 MG in SODIUM CHLOR 0.9% 250 ML INJ 250 ML IV SCH (22:25)
[2017-09-26] MEDS: ACETAMINOPHEN 325 MG TAB PO PRN (23:37)
[2017-09-27] VITALS: PULSE 77
[2017-09-27] MEDS ORDERED: FUROSEMIDE 20 MG/2 ML VIAL IV PUSH ONE
[2017-09-27 00:26] VITALS: BP 109/87; PULSE 73; RESP 17; TEMP 95.6; O2SAT 99
[2017-09-27] MEDS: RESP: ALBUTEROL 2.5 MG/IPRATROPIUM 0.5 MG NEB (PRN) NEB (04:33)
[2017-09-27 05:28] VITALS: BP 109/68; PULSE 67; RESP 17; TEMP 95; O2SAT 100
[2017-09-27 08:00] VITALS: BP 123/65; PULSE 64; RESP 19; TEMP 96.2; O2SAT 100
[2017-09-27] MEDS: INSULIN ASPART SUPPLEMENTAL SCALE SQ SCH ×4 (08:00→23:03)
[2017-09-27] MEDS: guaiFENesin E.R. 600 MG TAB PO SCH ×2 (08:45→23:02)
[2017-09-27] MEDS: PARICALCITOL 1 MCG CAP PO SCH (08:45)
[2017-09-27] MEDS: CARVEDILOL 3.125 MG TAB PO SCH ×2 (08:45→23:02)
[2017-09-27] MEDS: FUROSEMIDE 40 MG TAB PO SCH ×2 (08:45→17:50)
[2017-09-27] MEDS: CLOPIDOGREL 75 MG TAB PO SCH (08:45)
[2017-09-27] MEDS: VERAPAMIL HCL 40 MG TAB PO SCH (08:45)
[2017-09-27] MEDS: LORATADINE 10 MG TAB PO SCH (08:45)
[2017-09-27] MEDS: CHOLECALCIFEROL (VIT D3) 5000 UNIT CAP PO SCH (08:46)
[2017-09-27] MEDS: VITAMIN B CMPLX/VITC/FOLIC AC CAP PO SCH (08:53)
[2017-09-27] MEDS: SODIUM CHLORIDE 0.9% FLUSH 10 ML FLUSH IV FLUSH SCH ×2 (08:54→23:10)
[2017-09-27] MEDS: TIOTROPIUM BROMIDE 18 MCG INH INH SCH (08:54)
[2017-09-27] MEDS: ASPIRIN 81 MG CHEW TAB CHEW SCH (08:54)
--- NOTE | 2017-09-27 09:29 | HHI.PR ---
Subjective Remarks Pt seen and examined this morning. AFVSS. No acute events overnight. Reports she is feeling slightly better than prior days. Had a good appetite yesterday and was able to eat meals without nausea, vomiting, or diarrhea. Denies CP or SOB. Feels a little weak. States she has had trouble detecting when she has to urinate. No dysuria or hematuria. Objective Vitals Vital Signs Date Time Temp Pulse Resp B/P (MAP) Pulse Ox O2 Delivery O2 Flow Rate FiO2 09/27/17 05:28 95.0 67 17 109/68 (82) 100 09/27/17 03:00 Nasal Cannula 2.00 09/27/17 00:26 95.6 73 17 109/87 (94) 99 09/27/17 00:00 77 09/26/17 23:20 98 Nasal Cannula 2.00 09/26/17 23:00 96 Nasal Cannula 2.00 09/26/17 20:00 95.7 69 17 123/69 (87) 99 09/26/17 20:00 Nasal Cannula 2.00 09/26/17 19:59 71 09/26/17 18:00 68 09/26/17 17:00 68 09/26/17 16:00 75 09/26/17 15:08 97.3 72 18 120/55 (76) 99 09/26/17 15:08 99 Nasal Cannula 1.50 09/26/17 15:00 73 09/26/17 14:00 70 09/26/17 13:00 68 09/26/17 12:42 97 Nasal Cannula 2.00 09/26/17 12:00 68 09/26/17 11:18 97.3 73 18 111/57 (75) 95 09/26/17 11:18 95 Nasal Cannula 1.50 09/26/17 11:00 72 09/26/17 10:00 69 I/O 09/26/17 09/26/17 09/26/17 09/27/17 09/27/17 09/27/17 07:00 15:00 23:00 07:00 15:00 23:00 Intake Total 480 ml 580 ml 500 ml Output Total 275 ml 200 ml 250 ml Balance 205 ml 380 ml 250 ml Intake Oral 480 ml 480 ml 500 ml IV Total 100 ml Output Urine Total 275 ml 200 ml 250 ml # Voids 1 # Bowel Movements 0 Result Diagram: 09/26/17 0632 09/26/17 0632 Objective Remarks GENERAL: female sitting up in chair in NAD. SKIN: Warm and dry. HEENT: Pupils equal and round. MMM. NECK: Supple no tender LAD or JVD. HEART: RRR no m/r/g. LUNGS: Slightly decreased at the bases otherwise clear without wheezing or crackles. ABDOMEN: Soft, NT, ND. EXTREMITIES: SCDs in palce. 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 NEURO: Awake and alert. 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 Found to have severe restrictive lung disease and acute renal failure. Acute renal failure Likely secondary to fluid shifts and dye from cath Nephrology consulted and managing HD, appreciate expertise Follow renal function On Vitamin D supplements, Zemplar for HPTH Avoid nephrotoxins Losartan and hydrochlorothiazide have been stopped Monitor I&Os CHF exacerbation Symptoms improving and cleared from a cardiac standpoint EF of 25%, previously normal Lasix 40 mg PO BID but continue watching creatinine closely given ARF and on HD Supplemental O2 PRN S/p cardiac cath on 09/15 showing patent grafts, no lesions for intervention RHC showing high left sided filling pressures Continue Coreg and Verapamil Hold MICHELLE-I/Spirolactone/Entresto due to kidney disease Restrictive lung disease Pulmonology following Received steroids for possible inflammatory element Continue oxygen supplementation Further pulmonary function testing as an outpatient Enterococcus UTI Given ARF on HD and limited antibiotics on susceptibilities, will consult ID for assistance with antibiotic selection Of note, patient had been on Rocephin already with these positive urine cultures Pneumonia Possible intrinsic lung disease Pulmonary hypertension Pulmonology has been consulted Continue oxygen supplementation Stop Rocephin and Azithromycin (had been receiving since 09/10 and patient has been AF without leukocytosis or fever) Insulin-dependent diabetes mellitus A1c 7.5 Sliding scale insulin, food and nutrition professor Monitor blood glucose Diabetic diet CAD/PVD/HLD Continue aspirin and Plavix DVT prophylaxis Heparin Problem Qualifiers (1) CHF (congestive heart failure): Qualified Codes: I50.23 - Acute on chronic systolic (congestive) heart failure (2) Chronic kidney disease: Qualified Codes: N18.4 - Chronic kidney disease, stage 4 (severe) Karen Peck MD Sep 27, 2017 09:28
[2017-09-27 10:05] LABS: AUTOMATED NEUTROPHIL # 6.1 TH/MM3 (1.8-7.7); BASOPHIL % 0.3 % (0.0-2.0); EOSINOPHIL # 0.1 TH/MM3 (0-0.4); EOSINOPHIL % 1.2 % (0.0-4.0); HEMATOCRIT 32.7 % (35.0-46.0); HEMOGLOBIN 10.4 GM/DL (11.6-15.3); LYMPHOCYTE # 1.4 TH/MM3 (1.0-4.8); MEAN CELL VOLUME 85.6 FL (80.0-100.0); MEAN CORPUSCULAR HEMOGLOBIN 27.3 PG (27.0-34.0); MEAN CORPUSCULAR HGB CONC 31.9 % (32.0-36.0); MEAN PLATELET VOLUME 9.7 FL (7.0-11.0); MONO % 10.5 % (0.0-8.0); MONOCYTE # 0.9 TH/MM3 (0-0.9); PLATELET COUNT 224 TH/MM3 (150-450); RED BLOOD COUNT 3.82 MIL/MM3 (4.00-5.30); RED CELL DISTRIBUTION WIDTH 18.2 % (11.6-17.2); WHITE BLOOD COUNT 8.4 TH/MM3 (4.0-11.0)
[2017-09-27 10:19] LABS: ALBUMIN 2.8 GM/DL (3.4-5.0); BICARBONATE 26.1 MEQ/L (21.0-32.0); CALCIUM 8.6 MG/DL (8.5-10.1); CREATININE 2.8 MG/DL (0.50-1.00); PHOSPHORUS 3.7 MG/DL (2.5-4.9)
--- NOTE | 2017-09-27 10:26 | HHI.FF ---
Face to Face Verification Diagnosis: (1) CHF exacerbation (2) Acute renal failure (3) CAD (coronary artery disease) (4) Insulin dependent diabetes mellitus Physical Therapy Order: Evaluate and Treat, Improve ambulation, Strength and gait training Home Health Nursing Order: Signs/symptoms of disease process Nursing assessment with vital signs I have seen patient Helene Sanchez on 09/27/17. My clinical findings support the need for the requested home health care services because: Patient has SOB Deconditioned w/ increased weakness Limited ability to care for self High risk of falls I certify that my clinical findings support that this patient is homebound because: Hx COPD- exertion dyspnea/weakness Unsteady gait/balance Poor cardiac reserve Karen Peck MD Sep 27, 2017 10:26
--- NOTE | 2017-09-27 10:28 | HHI.NPPN ---
Subjective General Problems: Anemia, Edema Renal Failure: Chronic, Acute Additional Remarks Patient is alert,Cough positive, states feels better Review of Systems Musculoskeletal MS: Pain/Stiffness Objective Data Data Vital Signs Date Time Temp Pulse Resp B/P (MAP) Pulse Ox O2 Delivery O2 Flow Rate FiO2 09/27/17 05:28 95.0 67 17 109/68 (82) 100 09/27/17 03:00 Nasal Cannula 2.00 09/27/17 00:26 95.6 73 17 109/87 (94) 99 09/27/17 00:00 77 09/26/17 23:20 98 Nasal Cannula 2.00 09/26/17 23:00 96 Nasal Cannula 2.00 09/26/17 20:00 95.7 69 17 123/69 (87) 99 09/26/17 20:00 Nasal Cannula 2.00 09/26/17 19:59 71 09/26/17 18:00 68 09/26/17 17:00 68 09/26/17 16:00 75 09/26/17 15:08 97.3 72 18 120/55 (76) 99 09/26/17 15:08 99 Nasal Cannula 1.50 09/26/17 15:00 73 09/26/17 14:00 70 09/26/17 13:00 68 09/26/17 12:42 97 Nasal Cannula 2.00 09/26/17 12:00 68 09/26/17 11:18 97.3 73 18 111/57 (75) 95 09/26/17 11:18 95 Nasal Cannula 1.50 09/26/17 11:00 72 -: 09/27/17 0656 09/27/17 0656 Physical Exam General Appearance: No Acute Distress, Comfortable Eyes Eye Exam: Pupils Equal Throat Throat Exam: Oral Mucosa [place] & Moist Pulmonary Resp Exam: No Distress, Decreased Bases, Diminished Breath Sounds Gastrointestinal/Abdomen GI Exam: Soft, Non-Tender, Bowel Sounds Present Extremeties Extremities Exam: Moderate Edema, Pitting Edema Neurologic Neuro Exam: Alert, Awake, Oriented Psychiatric Psych Exam: Appropriate Responses Assessment/Plan Problem List: (1) Acute renal failure ICD Codes: N17.9 - Acute kidney failure, unspecified Plan: Patient has recent exposure to dye 60 cc was used during heart catheterization Patient has chronic kidney disease and acute renal failure due to fluid fluctuation possible dye-induced on Lasix 40 mg PO Bid Cr 2.8 UOP improve cut dialysis x 2 hrs X 1 L follow BMP may resolve ARF (2) Chronic kidney disease ICD Codes: N18.9 - Chronic kidney disease, unspecified (3) CHF (congestive heart failure) ICD Codes: I50.9 - Heart failure, unspecified Status: Acute Plan: Cardiology following on diuretic (4) CAD (coronary artery disease) ICD Codes: I25.10 - Atherosclerotic heart disease of [place] coronary artery without angina pectoris Plan: previous CABG (5) Insulin dependent diabetes mellitus ICD Codes: E11.9 - Type 2 diabetes mellitus without complications; 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
--- NOTE | 2017-09-27 12:16 | PD.CARD.PN ---
Subjective Subjective Remarks No complaints Objective Medications Current Medications Medications (Trade) Dose Ordered Sig/Briana Route Start Time Stop Time Status Last Admin (NS Flush) 2 ml UNSCH PRN IV FLUSH 09/09/17 22:00 (NS Flush) 2 ml BID IV FLUSH 09/10/17 09:00 09/27/17 08:54 (Tylenol) 650 mg Q4H PRN PO 09/09/17 22:00 09/26/17 23:37 (Zofran Inj) 4 mg Q6H PRN IVP 09/09/17 22:00 (Narcan Inj) 0.4 mg UNSCH PRN IV PUSH 09/09/17 22:00 (Milk Of Magnesia Liq) 30 ml Q12H PRN PO 09/09/17 22:00 09/26/17 15:50 (Senokot) 17.2 mg Q12H PRN PO 09/09/17 22:00 (Dulcolax Supp) 10 mg DAILY PRN RECTAL 09/09/17 22:00 (Lactulose Liq) 30 ml DAILY PRN PO 09/09/17 22:00 (D50w (Vial) Inj) 50 ml UNSCH PRN IV PUSH 09/09/17 22:15 (Glucagon Inj) 1 mg UNSCH PRN OTHER 09/09/17 22:15 (Duoneb Neb) 1 ampule Q4HR NEB PRN NEB 09/10/17 02:00 09/27/17 04:33 (Aspirin Chew) 81 mg DAILY CHEW 09/11/17 09:00 09/27/17 08:54 (Plavix) 75 mg DAILY PO 09/11/17 09:00 09/27/17 08:45 (Spiriva Inh) 18 mcg DAILY INH 09/11/17 09:00 09/27/17 08:54 (Claritin) 5 mg DAILY PO 09/11/17 09:00 09/27/17 08:45 (Pill Splitter) 1 ea UNSCH PRN OTHER 09/10/17 18:00 (Albuterol Neb) 2.5 mg Q6HR NEB PRN NEB 09/15/17 19:30 09/20/17 02:42 (Mucinex Er) 600 mg BID PO 09/15/17 21:00 09/27/17 08:45 (Isoptin) 40 mg DAILY PO 09/18/17 09:00 09/27/17 08:45 (Coreg) 3.125 mg Q12HR PO 09/19/17 21:00 09/27/17 08:45 (Zemplar) 1 mcg DAILY PO 09/20/17 15:00 09/27/17 08:45 (Vitamin D3) 5,000 units DAILY PO 09/20/17 15:00 09/27/17 08:46 Sodium Chloride 1,000 ml @ 0 mls/hr Q0M PRN OTHER 09/21/17 12:34 (Heparin Inj) 8,000 units UNSCH PRN IV FLUSH 09/21/17 12:45 Sodium Chloride 1,000 ml @ 200 mls/hr Q5H PRN IV 09/21/17 12:34 Sodium Chloride 1,000 ml @ 0 mls/hr Q0M PRN OTHER 09/21/17 12:34 (Mannitol Inj) 12.5 gm UNSCH PRN IV 09/21/17 12:45 Albumin Human 100 ml @ 60 mls/hr UNSCH PRN IV 09/21/17 12:45 (NS Flush) 5 ml UNSCH PRN IV FLUSH 09/21/17 12:45 (Heparin Inj) UNSCH PRN .XX 09/21/17 12:45 09/24/17 11:29 (Gentamicin Inj) 20 mg UNSCH PRN OTHER 09/21/17 12:45 09/21/17 20:37 (Zofran Inj) 4 mg UNSCH PRN IV PUSH 09/21/17 12:45 (Tylenol) 650 mg UNSCH PRN PO 09/21/17 12:45 (Benadryl) 25 mg UNSCH PRN PO 09/21/17 12:45 (Nitrostat Sl) 0.4 mg UNSCH PRN SL 09/21/17 12:45 (Catapres) 0.1 mg UNSCH PRN PO 09/21/17 12:45 (Epogen Inj) 4,000 units UNSCH PRN IV PUSH 09/21/17 12:45 09/24/17 11:28 (Gelfoam 12 Mm/7 Mm Top) 1 foam UNSCH PRN TOP 09/21/17 12:45 (NS Flush) UNSCH PRN IV FLUSH 2/13/18 15:45 (Heparin Inj) UNSCH PRN IV FLUSH 09/21/17 15:45 (NovoLOG SUPPLEMENTAL SCALE) 1 ACHS SLIDING SCALE SQ 09/24/17 12:00 09/26/17 20:42 (Lasix) 40 mg BID@09,18 PO 09/24/17 18:00 09/27/17 08:45 (Nephrocaps) 1 cap DAILY PO 09/27/17 09:00 09/27/17 08:53 Vital Signs / I&O Vital Signs Date Time Temp Pulse Resp B/P (MAP) Pulse Ox O2 Delivery O2 Flow Rate FiO2 09/27/17 11:30 100 2.00 09/27/17 08:00 96.2 64 19 123/65 (84) 100 09/27/17 05:28 95.0 67 17 109/68 (82) 100 09/27/17 03:00 Nasal Cannula 2.00 09/27/17 00:26 95.6 73 17 109/87 (94) 99 09/27/17 00:00 77 09/26/17 23:20 98 Nasal Cannula 2.00 09/26/17 23:00 96 Nasal Cannula 2.00 09/26/17 20:00 95.7 69 17 123/69 (87) 99 09/26/17 20:00 Nasal Cannula 2.00 09/26/17 19:59 71 09/26/17 18:00 68 09/26/17 17:00 68 09/26/17 16:00 75 09/26/17 15:08 97.3 72 18 120/55 (76) 99 09/26/17 15:08 99 Nasal Cannula 1.50 09/26/17 15:00 73 09/26/17 14:00 70 09/26/17 13:00 68 09/26/17 12:42 97 Nasal Cannula 2.00 I/O 09/26/17 09/26/17 09/26/17 09/27/17 09/27/17 09/27/17 07:00 15:00 23:00 07:00 15:00 23:00 Intake Total 480 ml 580 ml 500 ml Output Total 275 ml 200 ml 250 ml 1000 ml Balance 205 ml 380 ml 250 ml -1000 ml Intake Oral 480 ml 480 ml 500 ml IV Total 100 ml Output Urine Total 275 ml 200 ml 250 ml Hemodialysis 1000 ml # Voids 1 # Bowel Movements 0 Physical Exam GENERAL: NAD, AAOx3 SKIN: Warm and dry. HEAD: Atraumatic. Normocephalic. EYES: Pupils equal and round. No scleral icterus. No injection or drainage. ENT: No nasal bleeding or discharge. Mucous membranes pink and moist. NECK: Trachea midline. No JVD. CARDIOVASCULAR: Regular rate and rhythm. RESPIRATORY: No accessory muscle use. Decreased breath sounds bilaterally GASTROINTESTINAL: Abdomen soft, non-tender, nondistended. Hepatic and splenic margins not palpable. MUSCULOSKELETAL: Extremities without clubbing, cyanosis, or edema. No obvious deformities. Right femoral no hematoma, distal pulses intact NEUROLOGICAL: Awake and alert. No obvious cranial nerve deficits. Motor grossly within normal limits. Five out of 5 muscle strength in the arms and legs. Normal speech. PSYCHIATRIC: Appropriate mood and affect; insight and judgment normal. Laboratory Laboratory Tests Test 09/27/17 00:45 09/27/17 06:56 Blood Gas Puncture Site RT BRACHIAL Blood Gas Patient Temperature 98.6 Blood Gas HCO3 25 mmol/L Blood Gas Base Excess 1.8 mmol/L Blood Gas Oxygen Saturation 96 % Arterial Blood pH 7.47 Arterial Blood Partial Pressure CO2 35 mmHg Arterial Blood Partial Pressure O2 96 mmHg Arterial Blood Oxygen Content 13.4 Vol % Arterial Blood Carboxyhemoglobin 1.6 % Arterial Blood Methemoglobin 0.7 % Blood Gas Hemoglobin 9.9 G/DL Oxygen Delivery Device NASAL CANNULA Blood Gas Liter Flow 2 L/M White Blood Count 8.4 TH/MM3 Red Blood Count 3.82 MIL/MM3 Hemoglobin 10.4 GM/DL Hematocrit 32.7 % Mean Corpuscular Volume 85.6 FL Mean Corpuscular Hemoglobin 27.3 PG Mean Corpuscular Hemoglobin Concent 31.9 % Red Cell Distribution Width 18.2 % Platelet Count 224 TH/MM3 Mean Platelet Volume 9.7 FL Neutrophils (%) (Auto) 72.0 % Lymphocytes (%) (Auto) 16.0 % Monocytes (%) (Auto) 10.5 % Eosinophils (%) (Auto) 1.2 % Basophils (%) (Auto) 0.3 % Neutrophils # (Auto) 6.1 TH/MM3 Lymphocytes # (Auto) 1.4 TH/MM3 Monocytes # (Auto) 0.9 TH/MM3 Eosinophils # (Auto) 0.1 TH/MM3 Basophils # (Auto) 0.0 TH/MM3 CBC Comment DIFF FINAL Differential Comment Blood Urea Nitrogen 60 MG/DL Creatinine 2.80 MG/DL Random Glucose 70 MG/DL Albumin 2.8 GM/DL Calcium Level 8.6 MG/DL Phosphorus Level 3.7 MG/DL Sodium Level 135 MEQ/L Potassium Level 3.9 MEQ/L Chloride Level 98 MEQ/L Carbon Dioxide Level 26.1 MEQ/L Anion Gap 11 MEQ/L Estimat Glomerular Filtration Rate 17 ML/MIN Assessment and Plan Problem List: (1) CHF (congestive heart failure) ICD Codes: I50.9 - Heart failure, unspecified Status: Acute (2) Chronic kidney disease ICD Codes: N18.9 - Chronic kidney disease, unspecified (3) CAD (coronary artery disease) ICD Codes: I25.10 - Atherosclerotic heart disease of [place] coronary artery without angina pectoris Assessment and Plan 1) Acute on chronic CHF Echo showing decreased EF, previously normal EF Cardiac cath showing patent grafts, no lesions for intervention RHC showing high left sided filling pressures Coreg added No MICHELLE-I/Spirolactone/Entresto due to kidney disease Fluid management per nephrology 2) Rising creatinine Discussed with nephrology, HD started 3) CAD No lesions for intervention, con't medical management Con't ASA/Plavix 4) Intrinsic lung disease Pulmonology consulted, appreciated recommendations 5) No further cardiovascular issues, can be discharged from a cardiovascular perspective Will see PRN, if questions over the weekend, Dr. Pérez will be covering Problem Qualifiers (1) CHF (congestive heart failure): Qualified Codes: I50.23 - Acute on chronic systolic (congestive) heart failure (2) Chronic kidney disease: Qualified Codes: N18.4 - Chronic kidney disease, stage 4 (severe) Shravan Muniz DO Sep 27, 2017 12:16
[2017-09-27 16:00] VITALS: BP 121/67; PULSE 68; RESP 18; TEMP 97.4; O2SAT 95
[2017-09-27] MEDS: AMOXICILLIN (TRIHYDRATE) 250 MG CAP PO SCH (17:49)
--- NOTE | 2017-09-27 18:30 | MB ---
cc: EARLINE PERLA MD DATE OF CONSULTATION 09/27/[address] Peck REASON FOR CONSULTATION Patient with Enterococcus in the urine and limited susceptibilities. Please assist with antibiotic selection. HISTORY OF PRESENT ILLNESS This is a 71-year-old white female who was admitted to the hospital on September 12 with congestive heart failure exacerbation. The patient was admitted and has been treated for CHF. She also developed acute renal failure and she is undergoing hemodialysis. She was noted to have cardiomyopathy. The patient tells me that she now is making some urine. She had urine culture taken on 09/18 which came back with Enterococcus faecalis greater than 100,000 colonies. She has been treated with azithromycin and ceftriaxone for pneumonia. Repeated culture of the urine was performed on 09/24 and came back with Enterococcus faecalis. The colony count is less. The patient denies pain or burning on urination. However, she did say that she had some urinary hesitancy. She is afebrile. White blood cell count is normal. The patient was receiving antibiotics in the form of Augmentin and doxycycline prior to admission. This was for treatment of presumed pulmonary infection. Currently she is awake and alert in no distress. Infectious disease consultation requested for antibiotic management. PAST MEDICAL HISTORY 1. CHF. 2. COPD. 3. Insulin-dependent diabetes mellitus. 4. Coronary artery disease. 5. Peripheral vascular disease. 6. Hyperlipidemia. 7. History of coronary artery bypass graft surgery x3. 8. History of coronary stent. ALLERGIES SULFAMETHOXAZOLE, TRIMETHOPRIM, LEVAQUIN, TYLENOL SINUS, SODIUM IODIDE, PSEUDOEPHEDRINE, POVIDONE IODIDE, POTASSIUM IODID, METFORMIN, IODINE, ETODOLAC, CODEINE. SOCIAL HISTORY No tobacco, no alcohol. No illicit drugs. FAMILY HISTORY Noncontributory. REVIEW OF SYSTEMS Significant for shortness of breath and cough without sputum production. PHYSICAL EXAMINATION GENERAL: This is a pleasant, well-developed female who is in no acute distress. She is awake and alert and oriented. VITAL SIGNS: Include temperature of 96.2, BP is 123/65, respirations 20, heart rate 64. HEENT: Head is atraumatic. Extraocular movements grossly intact. Pupils reactive to light. No icterus. Oropharynx moist mucosa. No lesions. NECK: Supple. No adenopathy. LUNGS: Decreased breath sounds bilateral with right breath sounds much more diminished than the left. HEART: Regular S1-S2. No murmurs or rubs or gallops. ABDOMEN: Bowel sounds present, soft, no tenderness appreciated. RECTAL: Not performed. EXTREMITIES: No clubbing or cyanosis. 2+ edema at the lower extremities. SKIN: No rash. NEUROLOGIC: No gross focal finding. PSYCHIATRIC: The patient is pleasant, calm and cooperative. IMPRESSION Urinary tract infection due to Enterococcus faecalis. [place] count is less than previous but given her kidney dysfunction I would continue treatment to eradicate the Enterococcus. RECOMMENDATIONS Give amoxicillin 250 p.o. q.8h for 3 days and after that the urine culture can be repeated to check for clearance. If there is still Enterococcus in the urine, antibiotic should be adjusted depending on the sensitivity. Thank you this consultation. Please call if further recommendations are desired. Earline Perla MD FD/TEODORA /3:10 PM /6:01 PM
--- NOTE | 2017-09-27 19:15 | HHI.PR ---
Subjective Remarks 71 YOWF with COPD,CAD,CHF. decreased EF Was feeling much better but became sob with walking ABG showes hypoxia No CP PFT suggestive of severe restrictve dis Had HD yesterday, feels much better Objective Vital Signs Vital Signs Date Time Temp Pulse Resp B/P (MAP) Pulse Ox O2 Delivery O2 Flow Rate FiO2 09/27/17 18:28 2.00 09/27/17 16:00 97.4 68 18 121/67 (85) 95 09/27/17 11:30 100 2.00 09/27/17 08:00 96.2 64 19 123/65 (84) 100 09/27/17 05:28 95.0 67 17 109/68 (82) 100 09/27/17 03:00 Nasal Cannula 2.00 09/27/17 00:26 95.6 73 17 109/87 (94) 99 09/27/17 00:00 77 09/26/17 23:20 98 Nasal Cannula 2.00 09/26/17 23:00 96 Nasal Cannula 2.00 09/26/17 20:00 95.7 69 17 123/69 (87) 99 09/26/17 20:00 Nasal Cannula 2.00 09/26/17 19:59 71 I/O 09/26/17 09/26/17 09/26/17 09/27/17 09/27/17 09/27/17 07:00 15:00 23:00 07:00 15:00 23:00 Intake Total 480 ml 580 ml 500 ml 720 ml Output Total 275 ml 200 ml 250 ml 1000 ml 250 ml Balance 205 ml 380 ml 250 ml -1000 ml 470 ml Intake Oral 480 ml 480 ml 500 ml 720 ml IV Total 100 ml 0 ml Output Urine Total 275 ml 200 ml 250 ml 250 ml Hemodialysis 1000 ml # Voids 1 # Bowel Movements 0 0 Result Diagram: 09/27/17 0656 09/27/17 0656 Objective Remarks GENERAL: MBMN WF, mild sob SKIN: Warm and dry. HEAD: Normocephalic. EYES: No scleral icterus. No injection or drainage. NECK: Supple, trachea midline. No JVD or lymphadenopathy. CARDIOVASCULAR: Regular rate and rhythm without murmurs, gallops, or rubs. RESPIRATORY: Breath sounds equal bilaterally. No accessory muscle use. GASTROINTESTINAL: Abdomen soft, non-tender, nondistended. MUSCULOSKELETAL: No cyanosis, or edema. BACK: Nontender without obvious deformity. No CVA tenderness. A/P Assessment and Plan COPD Hypoxia CHF CAD Decreased EF Anxiety renal failure PLAN: Aerosol nebs Diurease Monitor lytes Supplement 02 Will need complete PFT with diffusion and lung volumes as out pt OOB and ambulate. Will FU in office Nilesh Rossi MD Sep 27, 2017 19:15
[2017-09-27 20:00] VITALS: BP 135/63; PULSE 73; RESP 16; TEMP 97.1; O2SAT 97
[2017-09-28] VITALS (7 sets, daily range): BP systolic 109–137; BP diastolic 58–73; PULSE 66–76; RESP 16–19; TEMP 96.3–98.1; O2SAT 94–100
[2017-09-28] MEDS: INSULIN ASPART SUPPLEMENTAL SCALE SQ SCH ×4 (07:56→21:00)
[2017-09-28] MEDS: CHOLECALCIFEROL (VIT D3) 5000 UNIT CAP PO SCH (07:58)
[2017-09-28] MEDS: VERAPAMIL HCL 40 MG TAB PO SCH (07:59)
[2017-09-28] MEDS: CLOPIDOGREL 75 MG TAB PO SCH (07:59)
[2017-09-28] MEDS: LORATADINE 10 MG TAB PO SCH (07:59)
[2017-09-28] MEDS: PARICALCITOL 1 MCG CAP PO SCH (07:59)
[2017-09-28] MEDS: AMOXICILLIN (TRIHYDRATE) 250 MG CAP PO SCH ×3 (07:59→17:06)
[2017-09-28] MEDS: SODIUM CHLORIDE 0.9% FLUSH 10 ML FLUSH IV FLUSH SCH ×2 (08:00→21:18)
[2017-09-28] MEDS: ASPIRIN 81 MG CHEW TAB CHEW SCH (08:00)
[2017-09-28] MEDS: FUROSEMIDE 40 MG TAB PO SCH ×2 (08:00→17:06)
[2017-09-28] MEDS: CARVEDILOL 3.125 MG TAB PO SCH ×2 (08:00→21:15)
[2017-09-28] MEDS: VITAMIN B CMPLX/VITC/FOLIC AC CAP PO SCH (08:00)
[2017-09-28] MEDS: guaiFENesin E.R. 600 MG TAB PO SCH ×2 (08:00→21:15)
[2017-09-28] MEDS: TIOTROPIUM BROMIDE 18 MCG INH INH SCH (08:01)
[2017-09-28 08:12] LABS: AUTOMATED NEUTROPHIL # 6.5 TH/MM3 (1.8-7.7); BASOPHIL % 0.2 % (0.0-2.0); EOSINOPHIL # 0.1 TH/MM3 (0-0.4); EOSINOPHIL % 1.1 % (0.0-4.0); HEMATOCRIT 33.1 % (35.0-46.0); HEMOGLOBIN 10.5 GM/DL (11.6-15.3); LYMPH % 12.5 % (9.0-44.0); LYMPHOCYTE # 1.1 TH/MM3 (1.0-4.8); MEAN CELL VOLUME 85.7 FL (80.0-100.0); MEAN CORPUSCULAR HEMOGLOBIN 27.3 PG (27.0-34.0); MEAN CORPUSCULAR HGB CONC 31.8 % (32.0-36.0); MEAN PLATELET VOLUME 9.6 FL (7.0-11.0); NEUT % 74.2 % (16.0-70.0); PLATELET COUNT 207 TH/MM3 (150-450); RED BLOOD COUNT 3.86 MIL/MM3 (4.00-5.30); RED CELL DISTRIBUTION WIDTH 17.9 % (11.6-17.2); WHITE BLOOD COUNT 8.7 TH/MM3 (4.0-11.0)
[2017-09-28 08:46] LABS: BICARBONATE 30.5 MEQ/L (21.0-32.0); CALCIUM 8.5 MG/DL (8.5-10.1); CREATININE 2.13 MG/DL (0.50-1.00)
--- NOTE | 2017-09-28 11:22 | HHI.PR ---
Subjective Remarks Creatinine is trending down. Patient states that she is urinating well. Creatinine is trending down. Patient denies cp/sob. Objective Vitals Vital Signs Date Time Temp Pulse Resp B/P (MAP) Pulse Ox O2 Delivery O2 Flow Rate FiO2 09/28/17 09:44 2.00 09/28/17 08:00 97.1 72 19 128/60 (82) 96 09/28/17 04:00 98.1 69 16 124/58 (80) 97 09/28/17 00:00 97.6 71 16 137/63 (87) 95 09/27/17 20:00 97.1 73 16 135/63 (87) 97 09/27/17 18:28 2.00 09/27/17 16:00 97.4 68 18 121/67 (85) 95 09/27/17 11:30 100 2.00 I/O 09/27/17 09/27/17 09/27/17 09/28/17 09/28/17 09/28/17 07:00 15:00 23:00 07:00 15:00 23:00 Intake Total 500 ml 720 ml Output Total 250 ml 1000 ml 250 ml 650 ml Balance 250 ml -1000 ml 470 ml -650 ml Intake Oral 500 ml 720 ml IV Total 0 ml Output Urine Total 250 ml 250 ml 650 ml Hemodialysis 1000 ml # Bowel Movements 0 1 Result Diagram: 09/28/17 0700 09/28/17 0700 Imaging Last Impressions Chest X-Ray 09/22/17 0600 Signed Impressions: Service Date/Time: Friday, September 22, 2017 03:37 - CONCLUSION: Layering effusions and consolidation. Nic Christianson MD Catheter Placement X-Ray 09/21/17 0000 Signed Impressions: Service Date/Time: Thursday, September 21, 2017 15:00 - CONCLUSION: Uncomplicated vas catheter placement via the right internal jugular vein. Bernard Duque MD Renal Ultrasound 09/17/17 0000 Signed Impressions: Service Date/Time: Sunday, September 17, 2017 18:45 - CONCLUSION: 1. No evidence of hydronephrosis. 2. There is some mild increased echogenicity of the renal parenchyma bilaterally. 3. There appears to be a 3 mm nonobstructing stone in each kidney. Gerry Jernigan MD Objective Remarks GENERAL: female sitting up in chair in NAD. SKIN: Warm and dry. HEENT: Pupils equal and round. MMM. NECK: Supple no tender LAD or JVD. HEART: RRR , systolic II/ murmur, no rubs or gallops auscultated. LUNGS: Slightly decreased at the bases otherwise clear without wheezing or crackles. ABDOMEN: Soft, NT, ND. EXTREMITIES: SCDs in palce. 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 NEURO: Awake and alert. Medications and IVs Current Medications Medications (Trade) Dose Ordered Sig/Briana Route Start Time Stop Time Status Last Admin (NS Flush) 2 ml UNSCH PRN IV FLUSH 09/09/17 22:00 (NS Flush) 2 ml BID IV FLUSH 09/10/17 09:00 09/28/17 08:00 (Tylenol) 650 mg Q4H PRN PO 09/09/17 22:00 09/26/17 23:37 (Zofran Inj) 4 mg Q6H PRN IVP 09/09/17 22:00 (Narcan Inj) 0.4 mg UNSCH PRN IV PUSH 09/09/17 22:00 (Milk Of Magnesia Liq) 30 ml Q12H PRN PO 09/09/17 22:00 09/26/17 15:50 (Senokot) 17.2 mg Q12H PRN PO 09/09/17 22:00 (Dulcolax Supp) 10 mg DAILY PRN RECTAL 09/09/17 22:00 (Lactulose Liq) 30 ml DAILY PRN PO 09/09/17 22:00 (D50w (Vial) Inj) 50 ml UNSCH PRN IV PUSH 09/09/17 22:15 (Glucagon Inj) 1 mg UNSCH PRN OTHER 09/09/17 22:15 (Duoneb Neb) 1 ampule Q4HR NEB PRN NEB 09/10/17 02:00 09/27/17 04:33 (Aspirin Chew) 81 mg DAILY CHEW 09/11/17 09:00 09/28/17 08:00 (Plavix) 75 mg DAILY PO 09/11/17 09:00 09/28/17 07:59 (Spiriva Inh) 18 mcg DAILY INH 09/11/17 09:00 09/28/17 08:01 (Claritin) 5 mg DAILY PO 09/11/17 09:00 09/28/17 07:59 (Pill Splitter) 1 ea UNSCH PRN OTHER 09/10/17 18:00 (Albuterol Neb) 2.5 mg Q6HR NEB PRN NEB 09/15/17 19:30 09/20/17 02:42 (Mucinex Er) 600 mg BID PO 09/15/17 21:00 09/28/17 08:00 (Isoptin) 40 mg DAILY PO 09/18/17 09:00 09/28/17 07:59 (Coreg) 3.125 mg Q12HR PO 09/19/17 21:00 09/28/17 08:00 (Zemplar) 1 mcg DAILY PO 09/20/17 15:00 09/28/17 07:59 (Vitamin D3) 5,000 units DAILY PO 09/20/17 15:00 09/28/17 07:58 Sodium Chloride 1,000 ml @ 0 mls/hr Q0M PRN OTHER 09/21/17 12:34 (Heparin Inj) 8,000 units UNSCH PRN IV FLUSH 09/21/17 12:45 Sodium Chloride 1,000 ml @ 200 mls/hr Q5H PRN IV 09/21/17 12:34 Sodium Chloride 1,000 ml @ 0 mls/hr Q0M PRN OTHER 09/21/17 12:34 (Mannitol Inj) 12.5 gm UNSCH PRN IV 09/21/17 12:45 Albumin Human 100 ml @ 60 mls/hr UNSCH PRN IV 09/21/17 12:45 (NS Flush) 5 ml UNSCH PRN IV FLUSH 09/21/17 12:45 (Heparin Inj) UNSCH PRN .XX 09/21/17 12:45 09/24/17 11:29 (Gentamicin Inj) 20 mg UNSCH PRN OTHER 09/21/17 12:45 09/21/17 20:37 (Zofran Inj) 4 mg UNSCH PRN IV PUSH 09/21/17 12:45 (Tylenol) 650 mg UNSCH PRN PO 09/21/17 12:45 (Benadryl) 25 mg UNSCH PRN PO 09/21/17 12:45 (Nitrostat Sl) 0.4 mg UNSCH PRN SL 09/21/17 12:45 (Catapres) 0.1 mg UNSCH PRN PO 09/21/17 12:45 (Epogen Inj) 4,000 units UNSCH PRN IV PUSH 09/21/17 12:45 09/24/17 11:28 (Gelfoam 12 Mm/7 Mm Top) 1 foam UNSCH PRN TOP 09/21/17 12:45 (NS Flush) UNSCH PRN IV FLUSH 09/21/17 15:45 (Heparin Inj) UNSCH PRN IV FLUSH 09/21/17 15:45 (NovoLOG SUPPLEMENTAL SCALE) 1 ACHS SLIDING SCALE SQ 09/24/17 12:00 09/28/17 07:56 (Lasix) 40 mg BID@ PO 09/24/17 18:00 09/28/17 08:00 (Nephrocaps) 1 cap DAILY PO 09/27/17 09:00 09/28/17 08:00 (Trimox) 250 mg TID PO 09/27/17 18:00 09/30/17 19:00 09/28/17 07:59 Vascular Central Line Catheter: Yes Assessment to: Continue Line: Central Venous Catheter Side: Right Location: Internal, Jugular Reason for Continuation On hemodialysis. A/P Problem List: (1) CHF (congestive heart failure) ICD Code: I50.9 - Heart failure, unspecified Status: Acute (2) Pneumonia ICD Code: J18.9 - Pneumonia, unspecified organism Status: Acute (3) CAD (coronary artery disease) ICD Code: I25.10 - Atherosclerotic heart disease of [place] coronary artery without angina pectoris Status: Chronic (4) Insulin dependent diabetes mellitus ICD Code: E11.9 - Type 2 diabetes mellitus without complications; Z79.4 - intermediate card tender (current) use of insulin Status: Chronic (5) Chronic kidney disease ICD Code: N18.9 - Chronic kidney disease, unspecified Status: Chronic (6) Acute renal failure ICD Code: N17.9 - Acute kidney failure, unspecified Status: Acute Assessment and Plan 71-year-old female admitted for CHF exacerbation. Found to have severe restrictive lung disease and acute renal failure. Acute renal failure Likely secondary to fluid shifts and dye from cath Nephrology consulted and managing HD, appreciate expertise Follow renal function On Vitamin D supplements, Zemplar for HPTH Losartan and hydrochlorothiazide have been stopped 09/28 creatinine is trending down from 2.80 down to 2.13. Continue to follow up nephrology recommendations. Hemodialysis as per nephrology. Continue to monitor BUN and creatinine, strict I's and O's and avoid nephrotoxins. CHF exacerbation Symptoms resolved on the patient has been cleared from cardiac standpoint. 2D echocardiogram showed a severely reduced systolic function with an estimated ejection fraction in the range of 25-30%. There is global left ventricular dysfunction. Moderate mitral valve regurgitation, mild aortic valve regurgitation. There is moderate to severe tricuspid valve regurgitation. Pulmonary hypertension with pulmonary arterial pressure of 66.9 mmHg. Mild pulmonary valve regurgitation. Lasix 40 mg PO BID but continue watching creatinine closely given ARF and on HD Supplemental O2 PRN S/p cardiac cath on 09/15 showing patent grafts, no lesions for intervention RHC showing high left sided filling pressures Continue Coreg and Verapamil Hold MICHELLE-I/Spirolactone/Entresto due to kidney disease. 09/28 continue diuretics as per nephrology. Will repeat chest x-ray. Last chest x-ray obtained on September 22, 2017 showed layering effusions on consolidation. COPD Restrictive lung disease Pulmonology following Received steroids for possible inflammatory element Continue oxygen supplementation Further pulmonary function testing as an outpatient Enterococcus UTI Given ARF on HD and limited antibiotics on susceptibilities, will consult ID for assistance with antibiotic selection Of note, patient had been on Rocephin already with these positive urine cultures 09/28 as per ID recommendations the patient has been started on amoxicillin 250 mg p.o. 3 times daily for 3 days and repeat urine cultures. Pneumonia Possible intrinsic lung disease Pulmonary hypertension Pulmonology has been consulted Continue oxygen supplementation SP Rocephin and Azithromycin (had been receiving since 09/10 and patient has been AF without leukocytosis or fever). 09/28 Monitor for fevers and worsening leukocytosis. Insulin-dependent diabetes mellitus A1c 7.5 Sliding scale insulin, menu planner Monitor blood glucose Diabetic diet 09/28 blood sugars very labile. Last couple readings very elevated. Continue insulin sliding scale, will add Levemir 5 units subcu twice daily. CAD/PVD/HLD Continue aspirin and Plavix DVT prophylaxis Heparin Discharge Planning Discharge pending nephrology clearance. Patient will need home health. Case management to assist. Problem Qualifiers (1) CHF (congestive heart failure): Qualified Codes: I50.23 - Acute on chronic systolic (congestive) heart failure (2) Chronic kidney disease: Qualified Codes: N18.4 - Chronic kidney disease, stage 4 (severe) Lázaro Miller MD Sep 28, 2017 11:22
[2017-09-28] MEDS: RESP: ALBUTEROL 2.5 MG/3 ML NEB (PRN) NEB (12:34)
--- NOTE | 2017-09-28 13:00 | HHI.NPPN ---
Subjective General Problems: Anemia, Edema Renal Failure: Chronic, Acute Additional Remarks Patient is alert,Cough positive, states feels better Review of Systems Musculoskeletal MS: Pain/Stiffness Objective Data Data Vital Signs Date Time Temp Pulse Resp B/P (MAP) Pulse Ox O2 Delivery O2 Flow Rate FiO2 09/28/17 09:44 2.00 09/28/17 08:00 97.1 72 19 128/60 (82) 96 09/28/17 04:00 98.1 69 16 124/58 (80) 97 09/28/17 00:00 97.6 71 16 137/63 (87) 95 09/27/17 20:00 97.1 73 16 135/63 (87) 97 09/27/17 18:28 2.00 09/27/17 16:00 97.4 68 18 121/67 (85) 95 -: 09/28/17 0700 09/28/17 0700 Physical Exam General Appearance: No Acute Distress, Comfortable Eyes Eye Exam: Pupils Equal Throat Throat Exam: Oral Mucosa [place] & Moist Pulmonary Resp Exam: No Distress, Decreased Bases, Diminished Breath Sounds Gastrointestinal/Abdomen GI Exam: Soft, Non-Tender, Bowel Sounds Present Extremeties Extremities Exam: Moderate Edema, Pitting Edema Neurologic Neuro Exam: Alert, Awake, Oriented Psychiatric Psych Exam: Appropriate Responses Assessment/Plan Problem List: (1) Acute renal failure ICD Codes: N17.9 - Acute kidney failure, unspecified Status: Acute Plan: Patient has recent exposure to dye 60 cc was used during heart catheterization Patient has chronic kidney disease and acute renal failure due to fluid fluctuation possible dye-induced on Lasix 40 mg PO Bid Cr 2.1 may hold dialysis may resolve ARF follow BMP (2) Chronic kidney disease ICD Codes: N18.9 - Chronic kidney disease, unspecified Status: Chronic (3) CHF (congestive heart failure) ICD Codes: I50.9 - Heart failure, unspecified Status: Acute Plan: Cardiology following on diuretic (4) CAD (coronary artery disease) ICD Codes: I25.10 - Atherosclerotic heart disease of [place] coronary artery without angina pectoris Status: Chronic Plan: previous CABG (5) Insulin dependent diabetes mellitus ICD Codes: E11.9 - Type 2 diabetes mellitus without complications; Z79.4 - terminal press operator (current) use of insulin Status: Chronic Plan: follow BG Problem Qualifiers (1) Chronic kidney disease: Qualified Codes: N18.4 - Chronic kidney disease, stage 4 (severe) (2) CHF (congestive heart failure): Qualified Codes: I50.23 - Acute on chronic systolic (congestive) heart failure Ehsan Cano MD Sep 28, 2017 13:00
--- NOTE | 2017-09-28 14:31 | RADRPT ---
EXAM DATE/TIME: 09/28/2017 13:24 [facility] COMPARISON: No previous studies available for comparison. INDICATIONS : Pleural Effusion. Patient has a cough. MEDICAL HISTORY : Congestive heart failure. Myocardial infarction. Dizziness. Chest pain. Hypertension. Dyspnea. Renal disease. Diabetes. Anxiety. Hypercholesterolemia. Dentures SURGICAL HISTORY : CABG. Triple bypass and stent placement.Cholecystectomy. Hysterectomy. Bilateral cataract surgery. Right foot great toe amputation. ENCOUNTER: Subsequent ACUITY: 2 weeks PAIN SCORE: 0/10 LOCATION: Bilateral chest FINDINGS: There is bilateral lower lobe consolidation with loss of delineation of both hemidiaphragms and some air bronchograms. There is also meniscal interface seen posteriorly on the lateral view suggesting c oexistent bilateral pleural effusions. The heart is normal in size; the inferior aspect of both hear t borders is obscured. Central line catheter tip projects in the right atrium. CONCLUSION: Bilateral lower lobe consolidation and bilateral pleural effusions. Heart border is not well seen an d is partially obscured. Abad Amaya MD on September 28, 2017 at 14:28 Board Certified Radiologist. This report was verified electronically.
[2017-09-28] MEDS: RESP: ALBUTEROL 2.5 MG/IPRATROPIUM 0.5 MG NEB (PRN) NEB (17:28)
--- NOTE | 2017-09-28 21:13 | PD.CARD.PN ---
Subjective Subjective Remarks Patient was seen earlier today, late entry Doing well overall, feels like she is getting better with each HD session Objective Medications Current Medications Medications (Trade) Dose Ordered Sig/Briana Route Start Time Stop Time Status Last Admin (NS Flush) 2 ml UNSCH PRN IV FLUSH 09/09/17 22:00 (NS Flush) 2 ml BID IV FLUSH 09/10/17 09:00 09/28/17 08:00 (Tylenol) 650 mg Q4H PRN PO 09/09/17 22:00 09/26/17 23:37 (Zofran Inj) 4 mg Q6H PRN IVP 09/09/17 22:00 (Narcan Inj) 0.4 mg UNSCH PRN IV PUSH 09/09/17 22:00 (Milk Of Magnesia Liq) 30 ml Q12H PRN PO 09/09/17 22:00 09/26/17 15:50 (Senokot) 17.2 mg Q12H PRN PO 09/09/17 22:00 (Dulcolax Supp) 10 mg DAILY PRN RECTAL 09/09/17 22:00 (Lactulose Liq) 30 ml DAILY PRN PO 09/09/17 22:00 (D50w (Vial) Inj) 50 ml UNSCH PRN IV PUSH 09/09/17 22:15 (Glucagon Inj) 1 mg UNSCH PRN OTHER 09/09/17 22:15 (Duoneb Neb) 1 ampule Q4HR NEB PRN NEB 09/10/17 02:00 09/28/17 17:28 (Aspirin Chew) 81 mg DAILY CHEW 09/11/17 09:00 09/28/17 08:00 (Plavix) 75 mg DAILY PO 09/11/17 09:00 09/28/17 07:59 (Spiriva Inh) 18 mcg DAILY INH 09/11/17 09:00 09/28/17 08:01 (Claritin) 5 mg DAILY PO 09/11/17 09:00 09/28/17 07:59 (Pill Splitter) 1 ea UNSCH PRN OTHER 09/10/17 18:00 (Albuterol Neb) 2.5 mg Q6HR NEB PRN NEB 09/15/17 19:30 09/28/17 12:34 (Mucinex Er) 600 mg BID PO 09/15/17 21:00 09/28/17 08:00 (Isoptin) 40 mg DAILY PO 09/18/17 09:00 09/28/17 07:59 (Coreg) 3.125 mg Q12HR PO 09/19/17 21:00 09/28/17 08:00 (Zemplar) 1 mcg DAILY PO 09/20/17 15:00 09/28/17 07:59 (Vitamin D3) 5,000 units DAILY PO 09/20/17 15:00 09/28/17 07:58 Sodium Chloride 1,000 ml @ 0 mls/hr Q0M PRN OTHER 09/21/17 12:34 (Heparin Inj) 8,000 units UNSCH PRN IV FLUSH 09/21/17 12:45 Sodium Chloride 1,000 ml @ 200 mls/hr Q5H PRN IV 09/21/17 12:34 Sodium Chloride 1,000 ml @ 0 mls/hr Q0M PRN OTHER 09/21/17 12:34 (Mannitol Inj) 12.5 gm UNSCH PRN IV 09/21/17 12:45 Albumin Human 100 ml @ 60 mls/hr UNSCH PRN IV 09/21/17 12:45 (NS Flush) 5 ml UNSCH PRN IV FLUSH 09/21/17 12:45 (Heparin Inj) UNSCH PRN .XX 09/21/17 12:45 09/24/17 11:29 (Gentamicin Inj) 20 mg UNSCH PRN OTHER 09/21/17 12:45 09/21/17 20:37 (Zofran Inj) 4 mg UNSCH PRN IV PUSH 09/21/17 12:45 (Tylenol) 650 mg UNSCH PRN PO 09/21/17 12:45 (Benadryl) 25 mg UNSCH PRN PO 09/21/17 12:45 (Nitrostat Sl) 0.4 mg UNSCH PRN SL 09/21/17 12:45 (Catapres) 0.1 mg UNSCH PRN PO 09/21/17 12:45 (Epogen Inj) 4,000 units UNSCH PRN IV PUSH 09/21/17 12:45 09/24/17 11:28 (Gelfoam 12 Mm/7 Mm Top) 1 foam UNSCH PRN TOP 09/21/17 12:45 (NS Flush) UNSCH PRN IV FLUSH 09/21/17 15:45 (Heparin Inj) UNSCH PRN IV FLUSH 09/21/17 15:45 (NovoLOG SUPPLEMENTAL SCALE) 1 ACHS SLIDING SCALE SQ 09/24/17 12:00 09/28/17 16:37 (Lasix) 40 mg BID@09,18 PO 09/24/17 18:00 09/28/17 17:06 (Nephrocaps) 1 cap DAILY PO 09/27/17 09:00 09/28/17 08:00 (Trimox) 250 mg TID PO 09/27/17 18:00 09/30/17 19:00 09/28/17 17:06 Vital Signs / I&O Vital Signs Date Time Temp Pulse Resp B/P (MAP) Pulse Ox O2 Delivery O2 Flow Rate FiO2 09/28/17 16:58 2.00 09/28/17 16:00 96.3 69 19 117/59 (78) 100 09/28/17 12:00 97.0 66 18 109/68 (82) 97 09/28/17 09:44 2.00 09/28/17 08:00 97.1 72 19 128/60 (82) 96 09/28/17 04:00 98.1 69 16 124/58 (80) 97 09/28/17 00:00 97.6 71 16 137/63 (87) 95 I/O 09/27/17 09/27/17 09/27/17 09/28/17 09/28/17 09/28/17 07:00 15:00 23:00 07:00 15:00 23:00 Intake Total 500 ml 720 ml 840 ml Output Total 250 ml 1000 ml 250 ml 650 ml Balance 250 ml -1000 ml 470 ml -650 ml 840 ml Intake Oral 500 ml 720 ml 840 ml IV Total 0 ml 0 ml Output Urine Total 250 ml 250 ml 650 ml Hemodialysis 1000 ml # Voids 5 # Bowel Movements 0 1 Physical Exam GENERAL: NAD, AAOx3 SKIN: Warm and dry. HEAD: Atraumatic. Normocephalic. EYES: Pupils equal and round. No scleral icterus. No injection or drainage. ENT: No nasal bleeding or discharge. Mucous membranes pink and moist. NECK: Trachea midline. No JVD. CARDIOVASCULAR: Regular rate and rhythm. RESPIRATORY: No accessory muscle use. Decreased breath sounds bilaterally GASTROINTESTINAL: Abdomen soft, non-tender, nondistended. Hepatic and splenic margins not palpable. MUSCULOSKELETAL: Extremities without clubbing, cyanosis, or edema. No obvious deformities. Right femoral no hematoma, distal pulses intact NEUROLOGICAL: Awake and alert. No obvious cranial nerve deficits. Motor grossly within normal limits. Five out of 5 muscle strength in the arms and legs. Normal speech. PSYCHIATRIC: Appropriate mood and affect; insight and judgment normal. Laboratory Laboratory Tests Test 09/28/17 07:00 White Blood Count 8.7 TH/MM3 Red Blood Count 3.86 MIL/MM3 Hemoglobin 10.5 GM/DL Hematocrit 33.1 % Mean Corpuscular Volume 85.7 FL Mean Corpuscular Hemoglobin 27.3 PG Mean Corpuscular Hemoglobin Concent 31.8 % Red Cell Distribution Width 17.9 % Platelet Count 207 TH/MM3 Mean Platelet Volume 9.6 FL Neutrophils (%) (Auto) 74.2 % Lymphocytes (%) (Auto) 12.5 % Monocytes (%) (Auto) 12.0 % Eosinophils (%) (Auto) 1.1 % Basophils (%) (Auto) 0.2 % Neutrophils # (Auto) 6.5 TH/MM3 Lymphocytes # (Auto) 1.1 TH/MM3 Monocytes # (Auto) 1.0 TH/MM3 Eosinophils # (Auto) 0.1 TH/MM3 Basophils # (Auto) 0.0 TH/MM3 CBC Comment DIFF FINAL Differential Comment Blood Urea Nitrogen 44 MG/DL Creatinine 2.13 MG/DL Random Glucose 177 MG/DL Calcium Level 8.5 MG/DL Sodium Level 136 MEQ/L Potassium Level 3.5 MEQ/L Chloride Level 98 MEQ/L Carbon Dioxide Level 30.5 MEQ/L Anion Gap 8 MEQ/L Estimat Glomerular Filtration Rate 23 ML/MIN Imaging Last 24 hours Impressions Chest X-Ray 09/28/17 0000 Signed Impressions: Service Date/Time: Thursday, September 28, 2017 13:24 - CONCLUSION: Bilateral lower lobe consolidation and bilateral pleural effusions. Heart border is not well seen and is partially obscured. Abad Amaya MD Assessment and Plan Problem List: (1) CHF (congestive heart failure) ICD Codes: I50.9 - Heart failure, unspecified Status: Acute (2) Chronic kidney disease ICD Codes: N18.9 - Chronic kidney disease, unspecified Status: Chronic (3) CAD (coronary artery disease) ICD Codes: I25.10 - Atherosclerotic heart disease of [place] coronary artery without angina pectoris Status: Chronic Assessment and Plan 1) Acute on chronic CHF Echo showing decreased EF, previously normal EF Cardiac cath showing patent grafts, no lesions for intervention RHC showing high left sided filling pressures Coreg added No MICHELLE-I/Spirolactone/Entresto due to kidney disease Fluid management per nephrology 2) Rising creatinine Discussed with nephrology, HD started 3) CAD No lesions for intervention, con't medical management Con't ASA/Plavix 4) Intrinsic lung disease Pulmonology consulted, appreciated recommendations 5) No further cardiovascular issues, can be discharged from a cardiovascular perspective Problem Qualifiers (1) CHF (congestive heart failure): Qualified Codes: I50.23 - Acute on chronic systolic (congestive) heart failure (2) Chronic kidney disease: Qualified Codes: N18.4 - Chronic kidney disease, stage 4 (severe) Shravan Muniz DO Sep 28, 2017 21:13
[2017-09-29] VITALS: BP 121/68; PULSE 75; RESP 16; TEMP 98.1; O2SAT 92
[2017-09-29] MEDS: RESP: ALBUTEROL 2.5 MG/3 ML NEB (PRN) NEB (02:36)
[2017-09-29 04:00] VITALS: BP 148/62; PULSE 72; RESP 16; TEMP 96.4; O2SAT 95
[2017-09-29 06:44] LABS: HEMATOCRIT 32.3 % (35.0-46.0); HEMOGLOBIN 10.3 GM/DL (11.6-15.3); MEAN CELL VOLUME 85.5 FL (80.0-100.0); MEAN CORPUSCULAR HEMOGLOBIN 27.3 PG (27.0-34.0); MEAN PLATELET VOLUME 9.6 FL (7.0-11.0); PLATELET COUNT 205 TH/MM3 (150-450); RED BLOOD COUNT 3.78 MIL/MM3 (4.00-5.30); WHITE BLOOD COUNT 8.4 TH/MM3 (4.0-11.0)
[2017-09-29 07:03] LABS: BICARBONATE 31.3 MEQ/L (21.0-32.0); CALCIUM 8.9 MG/DL (8.5-10.1); CREATININE 1.99 MG/DL (0.50-1.00)
[2017-09-29 08:00] VITALS: BP 141/65; PULSE 76; RESP 16; TEMP 97.7; O2SAT 95
[2017-09-29] MEDS: INSULIN ASPART SUPPLEMENTAL SCALE SQ SCH ×2 (08:00→11:46)
[2017-09-29] MEDS: ASPIRIN 81 MG CHEW TAB CHEW SCH (08:49)
[2017-09-29] MEDS: FUROSEMIDE 40 MG TAB PO SCH (08:49)
[2017-09-29] MEDS: guaiFENesin E.R. 600 MG TAB PO SCH (08:49)
[2017-09-29] MEDS: CARVEDILOL 3.125 MG TAB PO SCH (08:49)
[2017-09-29] MEDS: VERAPAMIL HCL 40 MG TAB PO SCH (08:50)
[2017-09-29] MEDS: AMOXICILLIN (TRIHYDRATE) 250 MG CAP PO SCH ×2 (08:50→11:46)
[2017-09-29] MEDS: LORATADINE 10 MG TAB PO SCH (08:50)
[2017-09-29] MEDS: CHOLECALCIFEROL (VIT D3) 5000 UNIT CAP PO SCH (08:50)
[2017-09-29] MEDS: VITAMIN B CMPLX/VITC/FOLIC AC CAP PO SCH (08:50)
[2017-09-29] MEDS: CLOPIDOGREL 75 MG TAB PO SCH (08:50)
[2017-09-29] MEDS: TIOTROPIUM BROMIDE 18 MCG INH INH SCH (08:51)
[2017-09-29] MEDS: SODIUM CHLORIDE 0.9% FLUSH 10 ML FLUSH IV FLUSH SCH (08:51)
[2017-09-29] MEDS: PARICALCITOL 1 MCG CAP PO SCH (11:46)
[2017-09-29 12:00] VITALS: BP 110/54; PULSE 84; RESP 16; TEMP 97.9; O2SAT 92
[2017-09-29] MEDS ORDERED: VERA40TA PO (12:42)
[2017-09-29] MEDS ORDERED: CHOL5000 PO (12:42)
[2017-09-29] MEDS ORDERED: ASPI81 CHEW (12:42)
[2017-09-29] MEDS ORDERED: SPIRCAP INH (12:42)
[2017-09-29] MEDS ORDERED: CARV3.125 PO (12:42)
[2017-09-29] MEDS ORDERED: NEPHRO PO (12:42)
[2017-09-29] MEDS ORDERED: FURO40TA PO (12:42)
[2017-09-29] MEDS ORDERED: AMOX250C3 PO (12:42)
[2017-09-29] MEDS ORDERED: PLAV75TA29 PO (12:42)
[2017-09-29] MEDS ORDERED: PARI1 PO (12:42)
[2017-09-29] MEDS ORDERED: MISCMIS81 (13:06)
--- NOTE | 2017-09-29 13:06 | HHI.DS ---
Discharge Summary Admission Date Sep 12, 2017 at 12:20 Discharge Date: Sep 29, 2017 Admitting Diagnosis CHF EXACERBATION. (1) CHF (congestive heart failure) ICD Code: I50.9 - Heart failure, unspecified Status: Acute (2) Pneumonia ICD Code: J18.9 - Pneumonia, unspecified organism Status: Acute (3) CAD (coronary artery disease) ICD Code: I25.10 - Atherosclerotic heart disease of [place] coronary artery without angina pectoris Status: Chronic (4) Insulin dependent diabetes mellitus ICD Code: E11.9 - Type 2 diabetes mellitus without complications; Z79.4 - custodial (current) use of insulin Status: Chronic (5) Chronic kidney disease ICD Code: N18.9 - Chronic kidney disease, unspecified Status: Chronic (6) Acute renal failure ICD Code: N17.9 - Acute kidney failure, unspecified Status: Acute Brief History - From Admission 71-year-old female with a past medical history significant for CHF (no recent echo for comparison), COPD, insulin-dependent diabetes mellitus, CAD, PVD and hyperlipidemia presents to the emergency department after being sent by her fiction and nonfiction writer prose, Dr. Muniz. The patient reports a 3 to four-month history of progressively worsening shortness of breath. She states it is worse with exertion and that she can barely walk. She also reports an inability to lie flat without gasping for air. The patient also endorses chest pain/pressure that is intermittent and last occurred 1-2 hours ago. She endorses nausea and chills. CBC/BMP: 09/29/17 0507 09/29/17 0507 Significant Findings Laboratory Tests Test 09/27/17 00:45 09/27/17 06:56 09/28/17 07:00 09/29/17 05:07 Arterial Blood pH 7.47 (7.380-7.420) Arterial Blood Partial Pressure CO2 35 mmHg (38-42) Blood Gas Hemoglobin 9.9 G/DL (12.0-16.0) Red Blood Count 3.82 MIL/MM3 (4.00-5.30) 3.86 MIL/MM3 (4.00-5.30) 3.78 MIL/MM3 (4.00-5.30) Hemoglobin 10.4 GM/DL (11.6-15.3) 10.5 GM/DL (11.6-15.3) 10.3 GM/DL (11.6-15.3) Hematocrit 32.7 % (35.0-46.0) 33.1 % (35.0-46.0) 32.3 % (35.0-46.0) Mean Corpuscular Hemoglobin Concent 31.9 % (32.0-36.0) 31.8 % (32.0-36.0) Red Cell Distribution Width 18.2 % (11.6-17.2) 17.9 % (11.6-17.2) 18.0 % (11.6-17.2) Neutrophils (%) (Auto) 72.0 % (16.0-70.0) 74.2 % (16.0-70.0) Monocytes (%) (Auto) 10.5 % (0.0-8.0) 12.0 % (0.0-8.0) Blood Urea Nitrogen 60 MG/DL (7-18) 44 MG/DL (7-18) 44 MG/DL (7-18) Creatinine 2.80 MG/DL (0.50-1.00) 2.13 MG/DL (0.50-1.00) 1.99 MG/DL (0.50-1.00) Random Glucose 70 MG/DL (74-106) 177 MG/DL (74-106) 136 MG/DL (74-106) Albumin 2.8 GM/DL (3.4-5.0) Sodium Level 135 MEQ/L (136-145) Estimat Glomerular Filtration Rate 17 ML/MIN (>89) 23 ML/MIN (>89) 25 ML/MIN (>89) Monocytes # (Auto) 1.0 TH/MM3 (0-0.9) PE at Discharge GENERAL: female sitting up in chair in NAD. SKIN: Warm and dry. HEENT: Pupils equal and round. MMM. NECK: Supple no tender LAD or JVD. HEART: RRR , systolic II/ murmur, no rubs or gallops auscultated. LUNGS: Slightly decreased at the bases otherwise clear without wheezing or crackles. ABDOMEN: Soft, NT, ND. EXTREMITIES: SCDs in palce. 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 NEURO: Awake and alert. Pt Condition on Discharge: Stable Discharge Disposition: Disch w/ Home Health Serv Discharge Instructions DIET: Follow Instructions for: Diabetic Diet Activities you can perform: Regular-No Restrictions, See Additionl Instruction Other Activity Instructions: Out of bed with assistance Lázaro Miller MD Sep 29, 2017 13:06
--- NOTE | 2017-09-29 14:42 | HHI.NPPN ---
Subjective General Problems: Anemia, Edema Renal Failure: Chronic, Acute Additional Remarks Patient is alert,Cough positive, states feels better Review of Systems Musculoskeletal MS: Pain/Stiffness Objective Data Data Vital Signs Date Time Temp Pulse Resp B/P (MAP) Pulse Ox O2 Delivery O2 Flow Rate FiO2 09/29/17 12:00 97.9 84 16 110/54 (72) 92 09/29/17 08:00 97.7 76 16 141/65 (90) 95 09/29/17 04:00 96.4 72 16 148/62 (90) 95 09/29/17 00:00 98.1 75 16 121/68 (85) 92 09/28/17 21:11 100 Nasal Cannula 2.00 09/28/17 20:00 97.3 76 16 123/73 (90) 94 09/28/17 19:14 75 09/28/17 16:58 2.00 09/28/17 16:00 96.3 69 19 117/59 (78) 100 -: 09/29/17 0507 09/29/17 0507 Physical Exam General Appearance: No Acute Distress, Comfortable Eyes Eye Exam: Pupils Equal Throat Throat Exam: Oral Mucosa [place] & Moist Pulmonary Resp Exam: No Distress, Decreased Bases, Diminished Breath Sounds Gastrointestinal/Abdomen GI Exam: Soft, Non-Tender, Bowel Sounds Present Extremeties Extremities Exam: Moderate Edema, Pitting Edema Neurologic Neuro Exam: Alert, Awake, Oriented Psychiatric Psych Exam: Appropriate Responses Assessment/Plan Problem List: (1) Acute renal failure ICD Codes: N17.9 - Acute kidney failure, unspecified Status: Acute Plan: Patient has recent exposure to dye 60 cc was used during heart catheterization Patient has chronic kidney disease and acute renal failure due to fluid fluctuation possible dye-induced on Lasix 40 mg PO Bid Cr 1.9 dc vascath follow as out pt OK to DC (2) Chronic kidney disease ICD Codes: N18.9 - Chronic kidney disease, unspecified Status: Chronic (3) CHF (congestive heart failure) ICD Codes: I50.9 - Heart failure, unspecified Status: Acute Plan: Cardiology following on diuretic (4) CAD (coronary artery disease) ICD Codes: I25.10 - Atherosclerotic heart disease of [place] coronary artery without angina pectoris Status: Chronic Plan: previous CABG (5) Insulin dependent diabetes mellitus ICD Codes: E11.9 - Type 2 diabetes mellitus without complications; 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
--- NOTE | 2017-09-29 16:06 | RADRPT ---
EXAM DATE/TIME: 09/29/2017 00:00 [facility] COMPARISON: No previous studies available for comparison. INDICATIONS : Patient with history of chronic kidney disease in need of non tunnelled dialysis catheter removal. MEDICAL HISTORY : HTN, Diabetes, HLD, GA, COPD, CHF, CKD, CAD, PVD SURGICAL HISTORY : CABGX3, Leg stent, Dialysis catheter ENCOUNTER: Subsequent ACUITY: 2 weeks PAIN SCORE: 0/10 IMAGE SERIES: 0 PROCEDURE : 1. Temporary central venous catheter removal. The prescribed catheter was removed intact and hemostasis was achieved with direct pressure. The sit e was dressed appropriately. The patient tolerated the procedure well. CONCLUSION: Uncomplicated catheter removal. Erick Swan MD on September 29, 2017 at 16:05 Board Certified Radiologist. This report was verified electronically.
--- NOTE | 2017-09-29 18:22 | PD.CARD.PN ---
Subjective Subjective Remarks Patient was seen earlier today, late entry Doing well overall, feels like she is getting better with each HD session Objective Vital Signs / I&O Vital Signs Date Time Temp Pulse Resp B/P (MAP) Pulse Ox O2 Delivery O2 Flow Rate FiO2 09/29/17 12:00 97.9 84 16 110/54 (72) 92 09/29/17 08:00 97.7 76 16 141/65 (90) 95 09/29/17 04:00 96.4 72 16 148/62 (90) 95 09/29/17 00:00 98.1 75 16 121/68 (85) 92 09/28/17 21:11 100 Nasal Cannula 2.00 09/28/17 20:00 97.3 76 16 123/73 (90) 94 09/28/17 19:14 75 I/O 09/28/17 09/28/17 09/28/17 09/29/17 09/29/17 09/29/17 07:00 15:00 23:00 07:00 15:00 23:00 Intake Total 840 ml Output Total 650 ml 1050 ml Balance -650 ml 840 ml -1050 ml Intake Oral 840 ml IV Total 0 ml Output Urine Total 650 ml 1050 ml # Voids 5 # Bowel Movements 1 Physical Exam GENERAL: NAD, AAOx3 SKIN: Warm and dry. HEAD: Atraumatic. Normocephalic. EYES: Pupils equal and round. No scleral icterus. No injection or drainage. ENT: No nasal bleeding or discharge. Mucous membranes pink and moist. NECK: Trachea midline. No JVD. CARDIOVASCULAR: Regular rate and rhythm. RESPIRATORY: No accessory muscle use. Decreased breath sounds bilaterally GASTROINTESTINAL: Abdomen soft, non-tender, nondistended. Hepatic and splenic margins not palpable. MUSCULOSKELETAL: Extremities without clubbing, cyanosis, or edema. No obvious deformities. Right femoral no hematoma, distal pulses intact NEUROLOGICAL: Awake and alert. No obvious cranial nerve deficits. Motor grossly within normal limits. Five out of 5 muscle strength in the arms and legs. Normal speech. PSYCHIATRIC: Appropriate mood and affect; insight and judgment normal. Laboratory Laboratory Tests Test 09/29/17 05:07 White Blood Count 8.4 TH/MM3 Red Blood Count 3.78 MIL/MM3 Hemoglobin 10.3 GM/DL Hematocrit 32.3 % Mean Corpuscular Volume 85.5 FL Mean Corpuscular Hemoglobin 27.3 PG Mean Corpuscular Hemoglobin Concent 32.0 % Red Cell Distribution Width 18.0 % Platelet Count 205 TH/MM3 Mean Platelet Volume 9.6 FL Blood Urea Nitrogen 44 MG/DL Creatinine 1.99 MG/DL Random Glucose 136 MG/DL Calcium Level 8.9 MG/DL Sodium Level 138 MEQ/L Potassium Level 3.6 MEQ/L Chloride Level 99 MEQ/L Carbon Dioxide Level 31.3 MEQ/L Anion Gap 8 MEQ/L Estimat Glomerular Filtration Rate 25 ML/MIN Imaging Last 24 hours Impressions Central Venous Line 09/29/17 0000 Signed Impressions: Service Date/Time: Friday, September 29, 2017 00:00 - CONCLUSION: Uncomplicated catheter removal. Erick Swan MD Assessment and Plan Problem List: (1) CHF (congestive heart failure) ICD Codes: I50.9 - Heart failure, unspecified Status: Acute (2) Chronic kidney disease ICD Codes: N18.9 - Chronic kidney disease, unspecified Status: Chronic (3) CAD (coronary artery disease) ICD Codes: I25.10 - Atherosclerotic heart disease of [place] coronary artery without angina pectoris Status: Chronic Assessment and Plan 1) Acute on chronic CHF Echo showing decreased EF, previously normal EF Cardiac cath showing patent grafts, no lesions for intervention RHC showing high left sided filling pressures Coreg added No MICHELLE-I/Spirolactone/Entresto due to kidney disease Fluid management per nephrology 2) Rising creatinine Discussed with nephrology, HD started 3) CAD No lesions for intervention, con't medical management Con't ASA/Plavix 4) Intrinsic lung disease Pulmonology consulted, appreciated recommendations 5) No further cardiovascular issues, can be discharged from a cardiovascular perspective Problem Qualifiers (1) CHF (congestive heart failure): Qualified Codes: I50.23 - Acute on chronic systolic (congestive) heart failure (2) Chronic kidney disease: Qualified Codes: N18.4 - Chronic kidney disease, stage 4 (severe) (3) CAD (coronary artery disease): Qualified Codes: I25.10 - Atherosclerotic heart disease of [place] coronary artery without angina pectoris Shravan Muniz DO Sep 29, 2017 18:22
== END 2017-09-29 15:40 | disposition home health service (06) | DRG 286 ==
LOC: NEPE 18:37 → INTOOBSV 21:33 → NEDA 21:33 → HCPC 09-10 00:25 → OBSVTOIN 09-12 12:20 → N07A 09-26 18:45
PROVIDERS: ADMIT Hospitalist; ATTEND Hospitalist
PROC: B2181ZZ Fluoroscopy of Left Internal Mammary Bypass Graft using Low Osmolar Contrast (ICD-10-PCS; 2017-09-15)
PROC: B2131ZZ Fluoroscopy of Multiple Coronary Artery Bypass Grafts using Low Osmolar Contrast (ICD-10-PCS; 2017-09-15)
PROC: B2111ZZ Fluoroscopy of Multiple Coronary Arteries using Low Osmolar Contrast (ICD-10-PCS; 2017-09-15)
PROC: 4A023N8 Measurement of Cardiac Sampling and Pressure, Bilateral, Percutaneous Approach (ICD-10-PCS; principal; 2017-09-15 11:00)
PROC: 5A1D70Z Performance of Urinary Filtration, Intermittent, Less than 6 Hours Per Day (ICD-10-PCS; 2017-09-21)
PROC: 05HM33Z Insertion of Infusion Device into Right Internal Jugular Vein, Percutaneous Approach (ICD-10-PCS; 2017-09-21)
DX: I13.0 Hypertensive heart and chronic kidney disease with heart failure and stage 1 through stage 4 chronic kidney disease, or unspecified chronic kidney disease (principal); I50.23 Acute on chronic systolic (congestive) heart failure; J18.9 Pneumonia, unspecified organism; J84.9 Interstitial pulmonary disease, unspecified; I42.9 Cardiomyopathy, unspecified; N18.4 Chronic kidney disease, stage 4 (severe); N17.9 Acute kidney failure, unspecified; E11.22 Type 2 diabetes mellitus with diabetic chronic kidney disease; E11.51 Type 2 diabetes mellitus with diabetic peripheral angiopathy without gangrene; J44.0 Chronic obstructive pulmonary disease with (acute) lower respiratory infection; J44.1 Chronic obstructive pulmonary disease with (acute) exacerbation; T82.855A Stenosis of coronary artery stent, initial encounter; N39.0 Urinary tract infection, site not specified; I08.3 Combined rheumatic disorders of mitral, aortic and tricuspid valves; I27.20 Pulmonary hypertension, unspecified; I25.10 Atherosclerotic heart disease of native coronary artery without angina pectoris; E78.5 Hyperlipidemia, unspecified; Z77.22 Contact with and (suspected) exposure to environmental tobacco smoke (acute) (chronic); Y71.2 Prosthetic and other implants, materials and accessory cardiovascular devices associated with adverse incidents; F41.9 Anxiety disorder, unspecified; K59.00 Constipation, unspecified; B95.2 Enterococcus as the cause of diseases classified elsewhere; E86.0 Dehydration; Z89.411 Acquired absence of right great toe; Z91.11 Patient's noncompliance with dietary regimen; Z87.891 Personal history of nicotine dependence; Z95.1 Presence of aortocoronary bypass graft; Z79.4 Long term (current) use of insulin; Z95.5 Presence of coronary angioplasty implant and graft
CPT/HCPCS: 36556; 36600; 71045; 71046; 76775; 76937; 77001; 80048; 80053; 80069; 80074; 81001; 82306; 82550; 82552; 82570; 82805; 82810; 82948; 83036; 83735; 83880; 83970; 84100; 84156; 84484; 85025; 85027; 85610; 85652; 85730; 86038; 86039; 86140; 86430; 86850; 86900; 86901; 87040; 87077; 87086; 87186; 87205; 90935; 93005; 93306; 93460; 94060; 94150; 94618; 94640; 94667; 94668; 96374; 96375; 99152; 99153; C1752; C1769; C1893; G8987-GP; G8988-GP; J0456; J0696; J1200; J1580; J1644; J1815; J1940; J2250; J2930; J3010; J7050; J7512; J7613; Q4081; Q9967

== ENCOUNTER 2017-10-03 22:47 | Inpatient (IN) | payer OTHER, MEDICARE ==
[~2017-10-03] VITALS: Ht 162.6 cm; Wt 71.1 kg
[~2017-10-03 22:47] MED LIST changes: +AMOX250C3 PO; +ASPI81 CHEW; -AUGM500T7 PO; +CARV3.125 PO; +CHOL5000 PO; -DOXY100T PO; +FURO40TA PO; -HYZA50TA2 PO; +MISCMIS81; +NEPHRO PO; +PARI1 PO; +PLAV75TA29 PO; +SPIRCAP INH; +VERA40TA PO
[2017-10-03 22:49] VITALS: BP 160/66; PULSE 91; RESP 18; TEMP 97.8; O2SAT 98
[2017-10-03] MEDS ORDERED: NITROGLYCERIN 2% OINT 1 GM PACKET TOPICAL ONE (23:15)
[2017-10-03] MEDS ORDERED: RESP: ALBUTEROL 2.5 MG/IPRATROPIUM 0.5 MG NEB (SCH) INH ONE (23:15)
[2017-10-03] MEDS ORDERED: FUROSEMIDE 100 MG/10 ML VIAL IVP ONE (23:15)
[2017-10-03] MEDS ORDERED: SODIUM CHLORIDE 0.9% FLUSH 10 ML FLUSH IVF PRN (23:15)
--- NOTE | 2017-10-03 23:31 | RADRPT ---
EXAM DATE/TIME: 10/03/2017 23:13 [facility] COMPARISON: CHEST PA & LAT, September 28, 2017, 13:24. CHEST SINGLE AP, September 22, 2017, 3:37. INDICATIONS : Shortness of breath. MEDICAL HISTORY : Renal failure, acute. Diabetes mellitus type II. Hypertension. COPD SURGICAL HISTORY : CABG. ENCOUNTER: Initial ACUITY: 1 day PAIN SCORE: 0/10 LOCATION: Bilateral chest FINDINGS: Interval removal of right temporary dialysis catheter. Improved right-sided pleural effusion with res idual mild airspace disease and small bilateral pleural effusions. Cardiomediastinal contours are sta ble. Remainder of the exam is unchanged. CONCLUSION: 1. Interval removal of temporary dialysis catheter. 2. Improved right-sided pleural effusion with residual mild bibasilar airspace disease and small bila teral pleural effusions. León Chairez MD on October 03, 2017 at 23:28 Board Certified Radiologist. This report was verified electronically.
[2017-10-03 23:36] VITALS: RESP 25; O2SAT 97
[2017-10-03 23:38] VITALS: O2SAT 97
[2017-10-03 23:48] LABS: AUTOMATED NEUTROPHIL # 5.4 TH/MM3 (1.8-7.7); BASOPHIL # 0.1 TH/MM3 (0-0.2); EOSINOPHIL % 0.5 % (0.0-4.0); HEMATOCRIT 31.9 % (35.0-46.0); HEMOGLOBIN 10.2 GM/DL (11.6-15.3); LYMPH % 13.1 % (9.0-44.0); LYMPHOCYTE # 0.9 TH/MM3 (1.0-4.8); MEAN CELL VOLUME 84.4 FL (80.0-100.0); MEAN CORPUSCULAR HEMOGLOBIN 26.8 PG (27.0-34.0); MEAN CORPUSCULAR HGB CONC 31.8 % (32.0-36.0); MEAN PLATELET VOLUME 9.1 FL (7.0-11.0); MONO % 10.3 % (0.0-8.0); MONOCYTE # 0.7 TH/MM3 (0-0.9); NEUT % 75.1 % (16.0-70.0); PLATELET COUNT 194 TH/MM3 (150-450); RED BLOOD COUNT 3.78 MIL/MM3 (4.00-5.30); RED CELL DISTRIBUTION WIDTH 18.5 % (11.6-17.2); WHITE BLOOD COUNT 7.2 TH/MM3 (4.0-11.0)
[2017-10-03 23:58] LABS: D-DIMER 1.16 MG/L FEU (0.00-0.50); INTERNATIONAL NORMALIZED RATIO 1.2 RATIO
[2017-10-04] VITALS (11 sets, daily range): BP systolic 119–141; BP diastolic 57–65; PULSE 74–86; RESP 16–20; TEMP 97.3–98.5; O2SAT 97–100
[2017-10-04] LABS: ALT (GPT) 24 U/L (10-53); AST (GOT) 21 U/L (15-37); BICARBONATE 30.3 MEQ/L (21.0-32.0); BLOOD UREA NITROGEN 47 MG/DL (7-18); CALCIUM 8.3 MG/DL (8.5-10.1); CHLORIDE 102 MEQ/L (98-107); CREATININE 2.31 MG/DL (0.50-1.00); GLOMERULAR FILTRATION RATE 21 ML/MIN (>89); GLUCOSE,RANDOM 224 MG/DL (74-106); MAGNESIUM 1.8 MG/DL (1.5-2.5); SODIUM (NA) 139 MEQ/L (136-145)
[2017-10-04 00:04] LABS: ALKALINE PHOSPHATASE 150 U/L (45-117); TOTAL BILIRUBIN ADULT 1.1 MG/DL (0.2-1.0); TOTAL PROTEIN 6.8 GM/DL (6.4-8.2); TROPONIN I LESS THAN 0.02 NG/ML (0.02-0.05)
--- NOTE | 2017-10-04 02:32 | RADRPT ---
EXAM DATE/TIME: 10/04/2017 01:46 [facility] COMPARISON: No previous studies available for comparison. INDICATIONS : Bilateral leg pain and swelling. MEDICAL HISTORY : Congestive heart failure. Myocardial infarction. Hypercholesterolemia. Dizziness. Chest pain. Hyperte nsion. Dyspnea. Renal disease. Diabetes. Anxiety. SURGICAL HISTORY : CABG. Cholecystectomy. Hysterectomy. Bilateral cataract surgery. Right foot great toe amputation. ENCOUNTER: Initial ACUITY: 1 day PAIN SCORE: 3/10 LOCATION: Bilateral legs. TECHNIQUE: Venous ultrasound of the left and right leg was performed from the inguinal ligament to the proximal calf. Real-time, color Doppler and spectral tracing, compression and augmentation techniques were us ed. FINDINGS: RIGHT LEG: There is normal compressibility of the deep venous system from the inguinal region to the proximal ca lf. No echogenic clot is seen in the lumen of the common femoral, femoral, popliteal, and posterior tibial veins. There is a normal response of the venous system to proximal and distal augmentation an d respiration. LEFT LEG: There is normal compressibility of the deep venous system from the inguinal region to the proximal ca lf. No echogenic clot is seen in the lumen of the common femoral, femoral, popliteal, and posterior tibial veins. There is a normal response of the venous system to proximal and distal augmentation an d respiration. CONCLUSION: 1. No sonographic evidence for lower extremity DVT. León Chairez MD on October 04, 2017 at 2:31 Board Certified Radiologist. This report was verified electronically.
[2017-10-04] MEDS ORDERED: FUROSEMIDE 40 MG/4 ML VIAL IV PUSH ONE (02:45)
[2017-10-04] MEDS ORDERED: ENOXAPARIN SODIUM 30 MG/0.3 ML SYRINGE SQ ONE (03:30)
[2017-10-04 03:59] LABS: BICARBONATE 30.6 MEQ/L (21.0-32.0); BLOOD UREA NITROGEN 48 MG/DL (7-18); CALCIUM 8.5 MG/DL (8.5-10.1); CHLORIDE 102 MEQ/L (98-107); CREATININE 2.22 MG/DL (0.50-1.00); GLOMERULAR FILTRATION RATE 22 ML/MIN (>89); GLUCOSE,RANDOM 205 MG/DL (74-106); SODIUM (NA) 139 MEQ/L (136-145)
[2017-10-04 04:02] LABS: TROPONIN I LESS THAN 0.02 NG/ML (0.02-0.05)
--- NOTE | 2017-10-04 04:27 | PD ---
HPI . Acute respiratory symptom Chief Complaint: Respiratory Symptoms Time Seen by Provider: 23:03 Travel History International Travel<30 days: No Contact w/Intl Traveler<30days: No Traveled to known affect area: No History of Present Illness HPI 71-year-old female with a history of CHF chronic leg edema, notes having worsening of her leg edema, worsening of her orthopnea and shortness of breath with having mild chest discomfort earlier. Patient states she cannot sleep secondary to having significant orthopnea. Patient denies having fevers chills sweats, denies any production of cough. Denies hemoptysis. PFSH Past Medical History Narrative Medical Past medical history reviewed Arthritis: No Asthma: No Blood Disorders: No Anxiety: No Depression: No Heart Rhythm Problems: Yes Cancer: No Cardiovascular Problems: Yes High Cholesterol: Yes Chest Pain: Yes Congestive Heart Failure: Yes COPD: Yes Cerebrovascular Accident: No Diabetes: Yes Patient Takes Glucophage: No Diminished Hearing: No Endocrine: Yes Gastrointestinal Disorders: Yes GERD: No Glaucoma: No Genitourinary: Yes Headaches: Yes Hepatitis: No Hiatal Hernia: No Hypertension: Yes Immune Disorder: No Kidney Stones: No Musculoskeletal: No Neurologic: Yes Psychiatric: No Reproductive: No Respiratory: Yes Migraines: No Myocardial Infarction: No Renal Failure: Yes Seizures: No Thyroid Disease: No Ulcer: No ?: Not Menopausal: Yes : 4 Para: 4 Past Surgical History Abdominal Surgery: Yes (GALLD BLADDER) Appendectomy: No Cardiac Surgery: Yes (cabg 3 ves) Cholecystectomy: Yes Ear Surgery: No Endocrine Surgery: No Eye Surgery: Yes (bilat cataract) Genitourinary Surgery: No Gynecologic Surgery: Yes (HYSTERECTOMY) Hysterectomy: Yes Oral Surgery: No Pacemaker: No Thoracic Surgery: No Other Surgery: Yes Social History Alcohol Use: No Tobacco Use: No Substance Use: No Allergies-Medications (Allergen,Severity, Reaction): Coded Allergies: codeine (Unverified Allergy, Severe, SEVERE MOOD SWINGS, 03/23/17) etodolac (Unverified Allergy, Severe, Chest Pain, 03/23/17) iodine (Unverified Allergy, Severe, EDEMA, 03/23/17) metformin (Unverified Allergy, Severe, N/V, 03/23/17) potassium iodide (Unverified Allergy, Severe, EDEMA, 03/23/17) povidone-iodine (Unverified Allergy, Severe, EDEMA, 03/23/17) pseudoephedrine (Unverified Allergy, Severe, THROAT SWELLS, 03/23/17) sodium iodide (Unverified Allergy, Severe, EDEMA, 03/23/17) sodium iodide (Unverified Allergy, Severe, EDEMA, 03/23/17) Sulfa (Sulfonamide Antibiotics) (Unverified Allergy, Mild, 03/23/17) dizzy levofloxacin (Unverified Adverse Reaction, Severe, NAUSEA, VOMITING, DIZZINESS, 03/23/17) sulfamethoxazole (Unverified Adverse Reaction, Severe, NAUSEA, VOMITING, DIZZINESS, 03/23/17) trimethoprim (Unverified Adverse Reaction, Severe, NAUSEA, VOMITING, DIZZINESS, 03/23/17) Uncoded Allergies: Tylenol Sinus (Allergy, Severe, Dyspnea and Swelling, 01/11/09) Reported Meds & Prescriptions Reported Meds & Active Scripts Active Rollator Ultra-Light (Device) 1 Mis Mis Ea .XX DIRECTED Furosemide 40 Mg Tab 40 Mg PO DAILY Spiriva Handihaler (Tiotropium Inh) 18 Mcg Cap 18 Mcg INH DAILY 1 capsule = 18 mcg Vitamin D3 (Cholecalciferol) 5,000 Unit Cap 5,000 Units PO DAILY Nephro-Natalee Rx (Vitamin B Cmplx/Vit C/Folic AC) 1 Tab 1 Cap PO DAILY Zemplar (Paricalcitol) 1 Mcg Cap 1 Mcg PO DAILY Tgt Aspirin (Aspirin) 81 Mg Chw 81 Mg CHEW DAILY Verapamil (Verapamil HCl) 40 Mg Tab 40 Mg PO DAILY Coreg (Carvedilol) 3.125 Mg Tab 3.125 Mg PO Q12HR Plavix (Clopidogrel Bisulfate) 75 Mg Tab 75 Mg PO DAILY Amoxicillin 250 Mg Cap 250 Mg PO TID Reported Novolog Penfill (Insulin Aspart) 100 Unit/Ml Inj 5 SC DIRECTED <150 no coverage. >150 5 units for everY increments of 50 Narrative Medication Allergies and medications reviewed Review of Systems Except as stated in HPI: all other systems reviewed are Neg General / Constitutional: No: Fever Eyes: No: Visual changes HENT: No: Headaches Cardiovascular: Positive: Chest Pain or Discomfort, No: Palpitations, Irregular Rhythm, Tachycardia, Diaphoresis Respiratory: Positive: Cough, Shortness of Breath, Orthopnea, No: Wheezing, Hemoptysis, Stridor, Night Sweats, Pleuritic Pain Gastrointestinal: No: Abdominal Pain Genitourinary: No: Dysuria Musculoskeletal: Positive: Edema, No: Pain Skin: No Rash Neurologic: No: Weakness Psychiatric: No: Depression Endocrine: No: Polydipsia Hematologic/Lymphatic: No: Easy Bruising Physical Exam Narrative GENERAL: Awake and alert, in mild to moderate respiratory distress, chronically ill-appearing. Oxygen saturation 90-93% on room air, supplemental oxygen applied. SKIN: Warm and dry. Color is sallow, no diaphoresis cyanosis or pallor HEAD: Atraumatic. Normocephalic. EYES: Pupils equal and round. No scleral icterus. No injection or drainage. ENT: No nasal bleeding or discharge. Mucous membranes pink and moist. NECK: Trachea midline. mild JVD. Supple no stridor CARDIOVASCULAR: Regular rate and rhythm. S1-S2 no murmurs rubs or gallops RESPIRATORY: No accessory muscle use. Clear to auscultation. Breath sounds equal bilaterally. Decreased lung sounds right base, rales heard bilaterally right worse than left GASTROINTESTINAL: Abdomen soft, non-tender, nondistended. Hepatic and splenic margins not palpable. MUSCULOSKELETAL: 4+ tense edema not weeping bilateral lower extremities. Positive cap refill. NEUROLOGICAL: Awake and alert. No obvious gross focal deficits PSYCHIATRIC: Appropriate mood and affect; pleasant Data Data Last Documented VS Vital Signs Date Time Temp Pulse Resp B/P (MAP) Pulse Ox O2 Delivery O2 Flow Rate FiO2 10/03/17 23:38 97 Nasal Cannula 2.00 10/03/17 23:36 25 10/03/17 22:49 97.8 91 Orders Orders Complete Blood Count With Diff (10/03/17 23:05) Comprehensive Metabolic Panel (10/03/17 23:05) B-Type Natriuretic Peptide (10/03/17 23:05) D-Dimer (10/03/17 23:05) Act Partial Throm Time (Ptt) (10/03/17 23:05) Prothrombin Time / Inr (Pt) (10/03/17 23:05) Magnesium (Mg) (10/03/17 23:05) Ckmb (Isoenzyme) Profile (10/03/17 23:05) Troponin I (10/03/17 23:05) Urinalysis - C+S If Indicated (10/03/17 23:05) Influenzae A/B Antigen (10/03/17 23:05) Iv Access Insert/Monitor (10/03/17 23:05) Electrocardiogram (10/03/17 23:05) Ecg Monitoring (10/03/17 23:05) Oximetry (10/03/17 23:05) Oxygen Administration (10/03/17 23:05) Chest, Single Ap (10/03/17 23:05) Sodium Chloride 0.9% Flush (Ns Flush) (10/03/17 23:15) Furosemide Inj (Lasix Inj) (10/03/17 23:15) Albuterol-Ipratropium Neb (Duoneb Neb) (10/03/17 23:15) Nitroglycerin 2% Oint (Nitroglycerin 2% (10/03/17 23:15) Us Leg Venous Doppler Bilat (10/04/17 ) Furosemide Inj (Lasix Inj) (10/04/17 02:45) Basic Metabolic Panel (Bmp) (10/04/17 02:41) Enoxaparin Inj (Lovenox Inj) (10/04/17 03:30) Troponin I (10/04/17 03:10) Admit Order (Ed Use Only) (10/04/17 04:19) Ventilation & Perfusion Scan (10/04/17 ) Labs Laboratory Tests Test 10/03/17 23:30 10/04/17 03:10 White Blood Count 7.2 TH/MM3 Red Blood Count 3.78 MIL/MM3 Hemoglobin 10.2 GM/DL Hematocrit 31.9 % Mean Corpuscular Volume 84.4 FL Mean Corpuscular Hemoglobin 26.8 PG Mean Corpuscular Hemoglobin Concent 31.8 % Red Cell Distribution Width 18.5 % Platelet Count 194 TH/MM3 Mean Platelet Volume 9.1 FL Neutrophils (%) (Auto) 75.1 % Lymphocytes (%) (Auto) 13.1 % Monocytes (%) (Auto) 10.3 % Eosinophils (%) (Auto) 0.5 % Basophils (%) (Auto) 1.0 % Neutrophils # (Auto) 5.4 TH/MM3 Lymphocytes # (Auto) 0.9 TH/MM3 Monocytes # (Auto) 0.7 TH/MM3 Eosinophils # (Auto) 0.0 TH/MM3 Basophils # (Auto) 0.1 TH/MM3 CBC Comment DIFF FINAL Differential Comment Prothrombin Time 12.0 SEC Prothromb Time International Ratio 1.2 RATIO Activated Partial Thromboplast Time 24.0 SEC D-Dimer Quantitative (PE/DVT) 1.16 MG/L FEU Blood Urea Nitrogen 47 MG/DL 48 MG/DL Creatinine 2.31 MG/DL 2.22 MG/DL Random Glucose 224 MG/DL 205 MG/DL Total Protein 6.8 GM/DL Albumin 3.0 GM/DL Calcium Level 8.3 MG/DL 8.5 MG/DL Magnesium Level 1.8 MG/DL Alkaline Phosphatase 150 U/L Aspartate Amino Transf (AST/SGOT) 21 U/L Alanine Aminotransferase (ALT/SGPT) 24 U/L Total Bilirubin 1.1 MG/DL Sodium Level 139 MEQ/L 139 MEQ/L Potassium Level 4.1 MEQ/L 3.8 MEQ/L Chloride Level 102 MEQ/L 102 MEQ/L Carbon Dioxide Level 30.3 MEQ/L 30.6 MEQ/L Anion Gap 7 MEQ/L 6 MEQ/L Estimat Glomerular Filtration Rate 21 ML/MIN 22 ML/MIN Total Creatine Kinase 51 U/L Troponin I LESS THAN 0.02 NG/ML LESS THAN 0.02 NG/ML B-Type Natriuretic Peptide GREATER THAN 5000 PG/ML MDM Medical Decision Making Medical Screen Exam Complete: Yes Emergency Medical Condition: Yes Medical Record Reviewed: Yes Differential Diagnosis CHF, chronic renal insufficiency, pulmonary embolus, DVT, dyspnea, pleural effusion, pneumonia Narrative Course Chest x-ray significant for interval improvement of right pleural effusion, changes as per radiology, see reading Laboratory exam examinations reviewed, patient has elevated creatinine, with a history of chronic renal insufficiency, historically having creatinine as high as 4.36. Patient does make urine D-dimer positive at.... Patient cannot have a CT pulmonary injury at this time , VQ is not available at night. Patient duplex Doppler ultrasound bilateral lower extremities which showed no DVT. Patient covered with renal dose Lovenox awaiting further evaluation with VQ scan in the morning. EKG sinus rhythm 86 bpm, diffuse ST-T changes, IVCD, Patient given IV Lasix 80 mg and Nitropaste 1 is a chest wall with significant improvement in her symptomatology. Patient has significant diuresis. Repeat laboratory examinations, patient's troponin repeat is normal at less than 0.02. Patient's repeat BMP shows no significant change in her potassium which is still normal, creatinine has slight interval improvement. Case discussed with Dr. Rapp hospitalist service, admitted for acute exacerbation of chronic CHF, chronic renal insufficiency, positive d-dimer with possible PE, V/Q scan and heparinization as above discussed Diagnosis Primary Impression: Chronic kidney disease Qualified Codes: N18.9 - Chronic kidney disease, unspecified Additional Impressions: CHF exacerbation Qualified Codes: I50.9 - Heart failure, unspecified Restrictive lung disease Admitting Information Admitting Physician Requests: Admit Brett Martinez MD Oct 04, 2017 04:27
[2017-10-04] MEDS ORDERED: BISACODYL 10 MG SUPP RECTAL PRN (04:30)
[2017-10-04] MEDS ORDERED: SENNOSIDES 8.6 MG TAB PO PRN (04:30)
[2017-10-04] MEDS ORDERED: LACTULOSE SYRUP 20 GM/30 ML CUP PO PRN (04:30)
[2017-10-04] MEDS ORDERED: MAGNESIUM HYDROXIDE SUSP 30 ML CUP PO PRN (04:30)
[2017-10-04] MEDS ORDERED: ONDANSETRON HCL 4 MG/2 ML VIAL IVP PRN (04:30)
[2017-10-04] MEDS ORDERED: SODIUM CHLORIDE 0.9% FLUSH 10 ML FLUSH IV FLUSH PRN (04:30)
--- NOTE | 2017-10-04 04:53 | HHI.HP ---
HPI Service [place] [facility] Primary Care Physician Unknown Admission Diagnosis CHF Diagnoses: (1) CHF (congestive heart failure) Diagnosis: Principal (2) Renal insufficiency Diagnosis: Principal (3) COPD (chronic obstructive pulmonary disease) Diagnosis: Principal (4) DM (diabetes mellitus) Diagnosis: Principal Travel History International Travel<30 Days: No Contact w/Intl Traveler <30 Da: No Traveled to Known Affected Are: No History of Present Illness This is a 71-year-old female with a PMH of HTN, Hyperlipidemia, CHF (Echo w/ EF 25-30%), COPD, DM and CKD who presented to the ER w/ complaints of severe SOB and worsening lower extremity edema. Recent admit 09/12-09/29/17 for CHF Exacerbation, ARF secondary to contrast from Cardiac Cath requiring transient HD, following w/ Dr. Muniz and Dr. Cano. Had been doing well at time of discharge, however states she's had progressive worsening of edema and SOB. On Lasix 20mg po qd, seen by PCP and instructed to take 30mg as needed for edema, however notes no improvement. Denies chest pain, cough, fever or chills. On arrival, BP 160/66, HR 91, O2 sat 98% on RA, Afebrile. CBC unremarkable. Current 2.31, producing 1.99 on 09/29/17. Troponin negative. BNP greater than 5000. INR 1.2. D-dimer 1.16. CXR with removal of temporary dialysis catheter, improve right-sided pleural effusion, small bilateral pleural effusions. LE Doppler negative for DVT. S/p Lasix 80mg IV in addition to Lasix 40mg IV in ER. V/Q pending. Review of Systems Except as stated in HPI: all other systems reviewed are Neg ROS: 14 point review of systems otherwise negative. Past Family Social History Past Medical History PMH: HTN, Hyperlipidemia, CHF (Echo 09/13/17 w/ EF 25-30%), COPD, DM and CKD Past Surgical History PAST SURGICAL HISTORY: Cholecystectomy, CABG, Bilateral Cataract Surgery, Hysterectomy Allergies: Coded Allergies: codeine (Unverified Allergy, Severe, SEVERE MOOD SWINGS, 03/23/17) etodolac (Unverified Allergy, Severe, Chest Pain, 03/23/17) iodine (Unverified Allergy, Severe, EDEMA, 03/23/17) metformin (Unverified Allergy, Severe, N/V, 03/23/17) potassium iodide (Unverified Allergy, Severe, EDEMA, 03/23/17) povidone-iodine (Unverified Allergy, Severe, EDEMA, 03/23/17) pseudoephedrine (Unverified Allergy, Severe, THROAT SWELLS, 03/23/17) sodium iodide (Unverified Allergy, Severe, EDEMA, 03/23/17) sodium iodide (Unverified Allergy, Severe, EDEMA, 03/23/17) Sulfa (Sulfonamide Antibiotics) (Unverified Allergy, Mild, 03/23/17) dizzy levofloxacin (Unverified Adverse Reaction, Severe, NAUSEA, VOMITING, DIZZINESS, 03/23/17) sulfamethoxazole (Unverified Adverse Reaction, Severe, NAUSEA, VOMITING, DIZZINESS, 03/23/17) trimethoprim (Unverified Adverse Reaction, Severe, NAUSEA, VOMITING, DIZZINESS, 03/23/17) Uncoded Allergies: Tylenol Sinus (Allergy, Severe, Dyspnea and Swelling, 01/11/09) Family History PAST FAMILY HISTORY: Reviewed. No h/o DM or CAD Social History PAST SOCIAL HISTORY: Negative for alcohol, tobacco or drugs. Physical Exam Vital Signs Vital Signs Date Time Temp Pulse Resp B/P (MAP) Pulse Ox O2 Delivery O2 Flow Rate FiO2 10/03/17 23:38 97 Nasal Cannula 2.00 10/03/17 23:36 97 2.00 10/03/17 23:36 25 97 Nasal Cannula 2.00 10/03/17 22:49 97.8 91 18 160/66 (97) 98 Room Air Physical Exam PE: GENERAL: Very pleasant middle-aged white female in no acute distress. HEENT: PERRLA, EOMI. No scleral icterus or conjunctival pallor. No lid lag or facial droop. CARDIOVASCULAR: Regular rate and rhythm. No obvious murmurs to auscultation. No chest tenderness to palpation. RESPIRATORY: No obvious rhonchi or wheezing. Clear to auscultation. Breath sounds equal bilaterally. GASTROINTESTINAL: Abdomen soft, non-tender, nondistended. BS normal. MUSCULOSKELETAL: Extremities without clubbing, cyanosis. 3-4+ edema. Left partial foot amputation, right great toe amputation. NEUROLOGICAL: Awake, alert and oriented x4. No focal neurologic deficits. Moving both upper and lower extremities spontaneously. Laboratory Laboratory Tests Test 10/03/17 23:30 10/04/17 03:10 White Blood Count 7.2 Red Blood Count 3.78 Hemoglobin 10.2 Hematocrit 31.9 Mean Corpuscular Volume 84.4 Mean Corpuscular Hemoglobin 26.8 Mean Corpuscular Hemoglobin Concent 31.8 Red Cell Distribution Width 18.5 Platelet Count 194 Mean Platelet Volume 9.1 Neutrophils (%) (Auto) 75.1 Lymphocytes (%) (Auto) 13.1 Monocytes (%) (Auto) 10.3 Eosinophils (%) (Auto) 0.5 Basophils (%) (Auto) 1.0 Neutrophils # (Auto) 5.4 Lymphocytes # (Auto) 0.9 Monocytes # (Auto) 0.7 Eosinophils # (Auto) 0.0 Basophils # (Auto) 0.1 CBC Comment DIFF FINAL Differential Comment Prothrombin Time 12.0 Prothromb Time International Ratio 1.2 Activated Partial Thromboplast Time 24.0 D-Dimer Quantitative (PE/DVT) 1.16 Blood Urea Nitrogen 47 48 Creatinine 2.31 2.22 Random Glucose 224 205 Total Protein 6.8 Albumin 3.0 Calcium Level 8.3 8.5 Magnesium Level 1.8 Alkaline Phosphatase 150 Aspartate Amino Transf (AST/SGOT) 21 Alanine Aminotransferase (ALT/SGPT) 24 Total Bilirubin 1.1 Sodium Level 139 139 Potassium Level 4.1 3.8 Chloride Level 102 102 Carbon Dioxide Level 30.3 30.6 Anion Gap 7 6 Estimat Glomerular Filtration Rate 21 22 Total Creatine Kinase 51 Troponin I LESS THAN 0.02 LESS THAN 0.02 B-Type Natriuretic Peptide GREATER THAN 5000 Result Diagram: 10/03/17 2330 10/04/17 0310 Caprini VTE Risk Assessment Caprini VTE Risk Assessment: Mod/High Risk (score >= 2) Caprini Risk Assessment Model Point Value = 1 Point Value = 2 Point Value = 3 Point Value = 5 Age 41-60 Minor surgery BMI > 25 kg/m2 Swollen legs Varicose veins or History of unexplained or recurrent spontaneous Oral contraceptives or hormone replacement Sepsis (< 1 month) Serious lung disease, including pneumonia (< 1 month) Abnormal pulmonary function Acute myocardial infarction Congestive heart failure (< 1 month) History of inflammatory bowel disease Medical patient at bed rest Age 61-74 Arthroscopic surgery Major open surgery (> 45 min) Laparoscopic surgery (> 45 min) Malignancy Confined to bed (> 72 hours) Immobilizing plaster cast Central venous access Age >= 75 History of VTE Family history of VTE Factor V Leiden Prothrombin [id number] Lupus anticoagulant Anticardiolipin antibodies Elevated serum homocysteine Heparin-induced thrombocytopenia Other congenital or acquired thrombophilia Stroke (< 1 month) Elective arthroplasty Hip, pelvis, or leg fracture Acute spinal cord injury (< 1 month) Prophylaxis Regimen Total Risk Factor Score Risk Level Prophylaxis Regimen 0-1 Low Early ambulation 2 Moderate Order ONE of the following: *Sequential Compression Device (SCD) *Heparin 5000 units SQ BID 3-4 Higher Order ONE of the following medications: *Heparin 5000 units SQ TID *Enoxaparin/Lovenox 40 mg SQ daily (WT < 150 kg, CrCl > 30 mL/min) *Enoxaparin/Lovenox 30 mg SQ daily (WT < 150 kg, CrCl > 10-29 mL/min) *Enoxaparin/Lovenox 30 mg SQ BID (WT < 150 kg, CrCl > 30 mL/min) AND/OR *Sequential Compression Device (SCD) 5 or more Highest Order ONE of the following medications: *Heparin 5000 units SQ TID (Preferred with Epidurals) *Enoxaparin/Lovenox 40 mg SQ daily (WT < 150 kg, CrCl > 30 mL/min) *Enoxaparin/Lovenox 30 mg SQ daily (WT < 150 kg, CrCl > 10-29 mL/min) *Enoxaparin/Lovenox 30 mg SQ BID (WT < 150 kg, CrCl > 30 mL/min) AND *Sequential Compression Device (SCD) Assessment and Plan Problem List: (1) CHF (congestive heart failure) ICD Code: I50.9 - Heart failure, unspecified Status: Acute (2) Renal insufficiency ICD Code: N28.9 - Disorder of kidney and ureter, unspecified (3) COPD (chronic obstructive pulmonary disease) ICD Code: J44.9 - Chronic obstructive pulmonary disease, unspecified (4) DM (diabetes mellitus) ICD Code: E11.9 - Type 2 diabetes mellitus without complications Assessment and Plan A/P: 1. CHF: Acute on Chronic. Systolic. Echo 09/13/17 w/ EF 25-30%, BNP >5000, significant lower extremity edema on exam, CXR w/ small bilateral pleural effusions, images reviewed by me. S/p Lasix 120mg IV total in ER, will hold off on additional diuretics at the moment in light of significant diuretic and renal insufficiency. Monitor I/O. Consult Dr. Muniz for further evaluation regarding CHF exac. 2. Renal Insufficiency: Acute on Chronic. Creatinine 2.31, previously 1.99 on 09/29/17, s/p recent ARF secondary to contrast from Cath requiring temporary HD, now completed. Monitor I/O. Recheck labs to eval for renal function. Consult Dr. Cano for further recommendations. Given Lovenox in ER, will hold due to elevated creatinine. 3. COPD: Chronic Respiratory Failure, +SOB, likely combination of COPD and CHF. D-dimer elevated, pending V/Q. Resume home Spiriva, start DuoNeb prn. 4. DM: Sliding scale w/ Accu-Cheks. Resume home Insulin. 5. DVT Prophylaxis: Heparin sq, no Lovenox due to elevated creatinine 6. Social work for d/c planning as needed. 7. Case discussed w/ ER physician at length, labs/records/imaging reviewed by me. Flora Recio MD Oct 04, 2017 04:53
[2017-10-04] MEDS: RESP: ALBUTEROL 2.5 MG/IPRATROPIUM 0.5 MG NEB (PRN) NEB ×2 (04:58→22:29)
--- NOTE | 2017-10-04 09:10 | RADRPT ---
EXAM DATE/TIME: 10/04/2017 08:26 [facility] COMPARISON: CHEST SINGLE AP, October 03, 2017, 23:13. INDICATIONS : Dyspnea and mild chest discomfort. Chronic leg edema that has worsened. DOSE: 8.7 mCi Tc99m MAA IV 1.5 mCi Tc99m DTPA aerosol MEDICAL HISTORY : Congestive hearrt failure. Chronic obstructive pulmonary disease. Hypercholesterolemia. Hypertension. SURGICAL HISTORY : Hysterectomy. ENCOUNTER: Initial ACUITY: 1 day PAIN SCALE: 1/10 LOCATION: chest TECHNIQUE: Following five minutes of tidal breathing of DTPA aerosol, planar images of the lungs were performed in eight projections. The patient was then injected with MAA, and eight-view perfusion scan was perf ormed. FINDINGS: There is a homogeneous pattern of aerosol delivery to the periphery of both lungs. There is a questio nable very small subsegmental ventilatory defect in the posterior right midlung. Otherwise, no focal ventilatory defects are seen. The perfusion lung scan demonstrates a homogenous pattern of uptake in both lungs. There is a questio nable small subsegmental perfusion defect in the posterior right midlung. Otherwise, no significant s egmental or subsegmental defects are seen. Chest x-ray demonstrates underinflation with a cyst small bilateral pleural effusions and likely atel ectasis at both lung bases. CONCLUSION: Examination is low probability for PE. There is a potential subsegmental matched defect in the blacksmith supervisor ior right midlung. Otherwise, no ventilation/perfusion mismatch is identified. Castillo Gonzalez MD on October 04, 2017 at 9:03 Board Certified Radiologist. This report was verified electronically.
[2017-10-04] MEDS: CARVEDILOL 3.125 MG TAB PO SCH ×2 (10:32→21:58)
[2017-10-04] MEDS: DOCUSATE SODIUM 50 MG/SENNA 8.6 MG TAB PO SCH ×2 (10:32→21:58)
[2017-10-04] MEDS: CLOPIDOGREL 75 MG TAB PO SCH (10:32)
[2017-10-04] MEDS: HEPARIN SODIUM - SQ 10,000 UNITS/ML VIAL SQ SCH ×2 (10:33→21:58)
[2017-10-04] MEDS: ASPIRIN 81 MG CHEW TAB CHEW SCH (10:33)
[2017-10-04] MEDS: SODIUM CHLORIDE 0.9% FLUSH 10 ML FLUSH IV FLUSH SCH ×2 (10:33→21:58)
--- NOTE | 2017-10-04 10:42 | HHI.PR ---
Subjective Remarks Follow up for CHF exacerbation, MOE on CKD. The patient reports feeling slightly better overnight. Still reporting shortness of breath however improving. Lower extremity edema also improving. O2 sat 98% on 2L NC. Denies any chest pain, cough, fevers/chills, or any other medical complaints at this time. She states she does have some pains around the diaphragm with deep inspiration. She is requesting wheelchair with elevated legs upon discharge. She states her legs become very swollen when she sits outside with her legs down. She has no other medical complaints at this time. Objective Vitals Vital Signs Date Time Temp Pulse Resp B/P (MAP) Pulse Ox O2 Delivery O2 Flow Rate FiO2 10/04/17 08:01 98.0 83 17 129/58 (81) 98 10/04/17 06:17 Room Air 2.00 10/04/17 05:51 97.9 86 18 138/64 (88) 98 10/04/17 05:40 10/03/17 23:38 97 Nasal Cannula 2.00 10/03/17 23:36 97 2.00 10/03/17 23:36 25 97 Nasal Cannula 2.00 10/03/17 22:49 97.8 91 18 160/66 (97) 98 Room Air Result Diagram: 10/03/17 2330 10/04/17 0310 Imaging Last Impressions Lower Extremity Ultrasound 10/04/17 0000 Signed Impressions: Service Date/Time: Wednesday, October 04, 2017 01:46 - CONCLUSION: 1. No sonographic evidence for lower extremity DVT. León Chairez MD Chest X-Ray 10/03/17 5878 Signed Impressions: Service Date/Time: Tuesday, October 03, 2017 23:13 - CONCLUSION: 1. Interval removal of temporary dialysis catheter. 2. Improved right-sided pleural effusion with residual mild bibasilar airspace disease and small bilateral pleural effusions. León Chairez MD Objective Remarks GENERAL: Well-nourished, well-developed pleasant elderly female patient in [facility]. SKIN: Warm and dry. No rash. HEENT: Normocephalic. Atraumatic. Pupils equal and round. Mucous membranes pink and moist. NECK: Supple. Trachea midline. CARDIOVASCULAR: Regular rate and rhythm. S1, S2 noted. No murmur appreciated. RESPIRATORY: No accessory muscle use. Decreased breath sounds throughout, with bibasilar crackles. Breath sounds equal bilaterally. GASTROINTESTINAL: Abdomen soft, non-tender, nondistended. Normoactive bowel sounds x4. 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 1+ bilateral lower extremity pitting edema from feet to distal knee. NEUROLOGICAL: Awake and alert. No obvious cranial nerve deficits. Motor grossly within normal limits. Normal speech. PSYCHIATRIC: Appropriate mood and affect; insight and judgment normal. Medications and IVs Current Medications Medications (Trade) Dose Ordered Sig/Briana Route Start Time Stop Time Status Last Admin (NS Flush) 2 ml UNSCH PRN IV FLUSH 10/04/17 04:30 (NS Flush) 2 ml BID IV FLUSH 10/04/17 09:00 10/04/17 10:33 (Zofran Inj) 4 mg Q6H PRN IVP 10/04/17 04:30 (Heparin Inj) 5,000 units Q12H SQ 10/04/17 09:00 10/04/17 10:33 (Larisa-Colace) 1 tab BID PO 10/04/17 09:00 10/04/17 10:32 (Milk Of Magnesia Liq) 30 ml Q12H PRN PO 10/04/17 04:30 (Senokot) 17.2 mg Q12H PRN PO 10/04/17 04:30 (Dulcolax Supp) 10 mg DAILY PRN RECTAL 10/04/17 04:30 (Lactulose Liq) 30 ml DAILY PRN PO 10/04/17 04:30 (Aspirin Chew) 81 mg DAILY CHEW 10/04/17 09:00 10/04/17 10:33 (Coreg) 3.125 mg Q12HR PO 10/04/17 09:00 10/04/17 10:32 (Plavix) 75 mg DAILY PO 10/04/17 09:00 10/04/17 10:32 (Spiriva Inh) 18 mcg DAILY INH 10/04/17 09:00 (Duoneb Neb) 1 ampule Q4HR NEB PRN NEB 10/04/17 04:45 10/04/17 04:58 (Lasix Inj) 40 mg BID@ IV PUSH 10/04/17 18:00 A/P Problem List: (1) CHF (congestive heart failure) ICD Code: I50.9 - Heart failure, unspecified Status: Acute (2) Renal insufficiency ICD Code: N28.9 - Disorder of kidney and ureter, unspecified (3) COPD (chronic obstructive pulmonary disease) ICD Code: J44.9 - Chronic obstructive pulmonary disease, unspecified (4) DM (diabetes mellitus) ICD Code: E11.9 - Type 2 diabetes mellitus without complications Assessment and Plan 71-year-old female with a PMH of HTN, Hyperlipidemia, CHF (Echo 09/13/17 w/ EF 25- 30%), COPD, DM and CKD who presented to the ER w/ complaints of severe SOB and worsening lower extremity edema. Recent admit 09/12-09/29/17 for CHF Exacerbation , ARF secondary to contrast from Cardiac Cath requiring transient HD, following w/ Dr. Muniz and Dr. Cano. Acute on chronic systolic CHF: Significant 2-3+ BLE edema upon arrival. Echo 09/13 with EF 25-30%. BNP greater than 5000. -CXR images reviewed, shows residual mild bibasilar airspace disease, small bilateral pleural effusions. -D-dimer elevated, VQ scan with low probability for PE -S/p IV Lasix total 120mg upon arrival -Continue diuresis with IV Lasix 40mg bid, caution with renal function -Monitor strict Is&Os, Monitor on telemetry -Continue patient's coreg, aspirin, plavix; holding verapamil -Consult patient's gimp tacker Dr. 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 Cano -Monitor renal function CAD s/p CABG x3: chronic. No complaints of chest pain -continue patient's aspirin, plavix, BB -ACS rule out with negative serial cardiac enzymes x3 -monitor on telemetry COPD/Pulmonary Hypertension: chronic, stable. Does not appear to be in acute exacerbation -continue patient's kayla Lu prn Diabetes mellitus: chronic, HgbA1c 7.5 on 09/24/17. Patient reports she does not do well with any long acting insulin, and only on sliding scale insulin at home. -Monitor accu-checks and cover with SSI DVT Prophylaxis: heparin sq Discharge Planning Discussed with UR, meets inpatient, will admit. Discussed with Nereida CINTRON and Dr. Muniz. Phoebe Garcia PA-C Oct 04, 2017 10:42 am
--- NOTE | 2017-10-04 12:18 | EKG ---
Date Performed: 10/03/2017 Time Performed: 23:30:59 PTAGE: 71 years EKG: Sinus rhythm POSSIBLE LEFT ATRIAL ENLARGEMENT ST DEVIATION AND MODERATE T-WAVE ABNORMALITY, CONSIDER LATERAL ISCH EMIA ABNORMAL ECG INTERPRETATION BASED ON A DEFAULT AGE OF 40 YEARS Since the prior tracing, there santiago s been no significant change DOCTOR: Bo Hunt Interpretating Date/Time 10/04/2017 12:17:11
--- NOTE | 2017-10-04 12:41 | MB ---
cc: SHRAVAN SANDHU DO DATE OF CONSULTATION: 10/04/2017. REASON FOR CONSULTATION: Congestive heart failure. HISTORY OF PRESENT ILLNESS: Helene Sanchez is a pleasant 71-year-old female whom I see in the office who presented to the [facility] Emergency Room on October 03, 2017 due to shortness of breath. The patient was recently here for an extended hospitalization from September 12 through the . During that time, she was noted to have congestive heart failure as well as acute renal failure to the point of requiring hemodialysis. Before being discharged, she was off hemodialysis and urinating. Since discharge, she has noted progressive worsening of her edema and shortness of breath. She was originally on Lasix 20 milligrams a day and this was increased to 30 milligrams by her primary care physician. She denies current chest pain. PAST MEDICAL HISTORY: 1. Hypertension. 2. Hyperlipidemia. 3. Congestive heart failure with an ejection fraction of 25% to 30%. 4. COPD. 5. Diabetes. 6. Chronic kidney disease. PAST SURGICAL HISTORY: 1. Cardiac catheterization (September 15, 2017). Left main small vessel with 60% ostial disease. Left anterior descending 100% occluded in the proximal portion. It gives off one small diagonal, which is overall around 1 mm with a 90% lesion in the midportion. The left circumflex is a small to moderate vessel with 90% stenosis in the ostial portion. Right coronary artery 100% occluded in the midportion. HAYES to left anterior descending patent. Saphenous vein graft to OM patent, and it fills the obtuse marginal as well as the AV groove circumflex. Saphenous vein graft to posterior descending artery is patent. 2. Placement and removal of temporary AV catheter. 3. Previous drug-eluting stent to obtuse marginal (November of 2016 at [facility]). 4. Previous stenting of her legs. 5. Cholecystectomy. 6. History of CABG x3. 7. Bilateral cataract surgery. 8. Hysterectomy. ALLERGIES: 1. CODEINE. 2. ETODOLAC. 3. IODINE. 4. METFORMIN. 5. POTASSIUM. 6. POVIDONE. 7. PSEUDOEPHEDRINE. 8. SULFA. 9. LEVOFLOXACIN. 10. SULFAMETHOXAZOLE. 11. TRIMETHOPRIM. MEDICATIONS: 1. Amoxicillin 250 milligrams three times a day. 2. Spiriva 18 micrograms daily. 3. Plavix 75 milligrams daily. 4. Coreg 3.125 milligrams twice a day. 5. Verapamil 40 milligrams daily. 6. Aspirin 81 milligrams daily. 7. Lasix 40 milligrams daily. 8. NovoLog 5 units subcutaneous as directed. FAMILY HISTORY: Denies premature coronary artery disease or sudden cardiac within the family. SOCIAL HISTORY: Previously smoked but quit a number of months ago. Denies alcohol or drug abuse. REVIEW OF SYSTEMS Fourteen systems were reviewed including osteopathic with pertinent positives and negatives as above; otherwise negative. PHYSICAL EXAMINATION VITAL SIGNS: Temperature 98.0, heart rate 83, blood pressure 129/58, respirations 17, pulse oximetry 98% on two liters. GENERAL: In general the patient appears mildly lethargic but awakes to questioning. Oriented x3. In no acute distress. HEAD, EYES, EARS, NOSE, THROAT: Extraocular muscles intact. Mucous membranes moist. NECK: The neck is supple. No JVD at 45 degrees. No carotid bruits heard bilaterally. Carotid upstroke is brisk in nature. HEART: Regular rate and rhythm. Positive first and second heart sounds with no noted murmurs, gallops or rubs. LUNGS: Decreased breath sounds bilaterally, but no overt wheezes or rhonchi. She does have mild rales at the bases. ABDOMEN: The abdomen is soft, nontender and nondistended. No organomegaly noted. EXTREMITIES: 1+ pitting edema bilaterally. NEUROLOGIC: No focal deficits. SKIN: Warm, dry and intact. OSTEOPATHIC: Osteopathically, no kyphoscoliosis, lordosis or paraspinal tender points. LAB WORK: Hemoglobin 10.2, hematocrit 31.9, platelet count 194,000. Potassium 3.8, BUN 48, creatinine 2.22. Troponin negative x2. EKGS: Electrocardiogram (October 03, 2017 at 2330): Sinus rhythm, possible left atrial enlargement, nonspecific S-T-T wave changes. No significant change from previous on September 10, 2017. IMPRESSIONS: 1. Acute on chronic congestive heart failure with a previous ejection fraction of 25% to 30%. 2. Coronary artery disease as above with a history of CABG x3 (3/3 grafts patent). 3. Acute on chronic renal insufficiency previously requiring temporary hemodialysis. 4. COPD. 5. Pulmonary hypertension by previous Right heart catheterization. 6. Diabetes mellitus. RECOMMENDATIONS: 1. Ms. Sanchez appears to have acute on chronic heart failure and will most likely need further diuresis. Overall, with a creatinine around 2 as a baseline, she will most likely need a higher dose of Lasix upon discharge. 2. She received 120 milligrams last night and her creatinine has come down and this is most likely suggestive of acute on chronic kidney disease due to her overflow state. 3. We will continue to diurese her and watch her kidney function. Dr. Cano has been consulted from nephrology for further recommendations from a kidney standpoint. 4. Eventually she will need to be re-evaluated for an ejection fraction and if still low, consideration of an ICD but this will be done outpatient. 5. We will continue her on her previous cardiac medications including aspirin, Plavix, and carvedilol. Thank you for allowing me to see Helene Sanchez. If there are any questions, please do not hesitate to call. Shravan Sandhu DO [facility] /12:08 PM /12:19 PM
[2017-10-04] MEDS ORDERED: WHEEMIS3 (14:20)
[2017-10-04] MEDS ORDERED: GLUCAGON 1 MG/ML VIAL OTHER PRN (15:45)
[2017-10-04] MEDS ORDERED: DEXTROSE 50% IN WATER 50 ML VIAL(D50) IV PUSH PRN (15:45)
[2017-10-04] MEDS: TIOTROPIUM BROMIDE 18 MCG INH INH SCH (17:32)
--- NOTE | 2017-10-04 18:11 | PD.CONS ---
[facility] Service Nephrology Consult Requested By Dr. Recio Reason for Consult Acute and chronic kidney disease Primary Care Physician Unknown History of Present Illness Patient is a 71-year-old white female with coronary artery disease, congestive heart failure, recent heart catheterization, ejection fraction 25%, diabetes she was on dialysis briefly and recovered her kidney functions, she was discharged on Lasix and she stated that Lasix is stopped working and she developed increasing swelling and increasing shortness of breath. Patient was given IV Lasix with good response creatinine has declined to 2.2 from 2.3. Review of Systems Constitutional: COMPLAINS OF: Fatigue, Weight gain Respiratory: COMPLAINS OF: Shortness of breath Cardiovascular: COMPLAINS OF: Dyspnea on Exertion, Lower Extremity Edema Neurologic: COMPLAINS OF: Abnormal gait Psychiatric: COMPLAINS OF: Anxiety Past Family Social History Allergies: Coded Allergies: codeine (Unverified Allergy, Severe, SEVERE MOOD SWINGS, 03/23/17) etodolac (Unverified Allergy, Severe, Chest Pain, 03/23/17) iodine (Unverified Allergy, Severe, EDEMA, 03/23/17) metformin (Unverified Allergy, Severe, N/V, 03/23/17) potassium iodide (Unverified Allergy, Severe, EDEMA, 03/23/17) povidone-iodine (Unverified Allergy, Severe, EDEMA, 03/23/17) pseudoephedrine (Unverified Allergy, Severe, THROAT SWELLS, 03/23/17) sodium iodide (Unverified Allergy, Severe, EDEMA, 03/23/17) sodium iodide (Unverified Allergy, Severe, EDEMA, 03/23/17) Sulfa (Sulfonamide Antibiotics) (Unverified Allergy, Mild, 03/23/17) dizzy levofloxacin (Unverified Adverse Reaction, Severe, NAUSEA, VOMITING, DIZZINESS, 03/23/17) sulfamethoxazole (Unverified Adverse Reaction, Severe, NAUSEA, VOMITING, DIZZINESS, 03/23/17) trimethoprim (Unverified Adverse Reaction, Severe, NAUSEA, VOMITING, DIZZINESS, 03/23/17) Uncoded Allergies: Tylenol Sinus (Allergy, Severe, Dyspnea and Swelling, 01/11/09) Past Medical History Diabetes Hypertension Chronic kidney disease Baseline creatinine around 1.9-2.1 Congestive heart failure EF of 25-30 % Peripheral edema Coronary artery disease hyperlipidemia Past Surgical History Cholecystectomy Hysterectomy CABG Bilateral cataract Reported Medications Reported Meds & Active Scripts Active Wheelchair Elevated Leg (Device) 1 Mis Mis Ea .XX DIRECTED Rollator Ultra-Light (Device) 1 Mis Mis Ea .XX DIRECTED Furosemide 40 Mg Tab 40 Mg PO DAILY Spiriva Handihaler (Tiotropium Inh) 18 Mcg Cap 18 Mcg INH DAILY 1 capsule = 18 mcg Vitamin D3 (Cholecalciferol) 5,000 Unit Cap 5,000 Units PO DAILY Nephro-Natalee Rx (Vitamin B Cmplx/Vit C/Folic AC) 1 Tab 1 Cap PO DAILY Zemplar (Paricalcitol) 1 Mcg Cap 1 Mcg PO DAILY Tgt Aspirin (Aspirin) 81 Mg Chw 81 Mg CHEW DAILY Verapamil (Verapamil HCl) 40 Mg Tab 40 Mg PO DAILY Coreg (Carvedilol) 3.125 Mg Tab 3.125 Mg PO Q12HR Plavix (Clopidogrel Bisulfate) 75 Mg Tab 75 Mg PO DAILY Amoxicillin 250 Mg Cap 250 Mg PO TID Reported Novolog Penfill (Insulin Aspart) 100 Unit/Ml Inj 5 SC DIRECTED <150 no coverage. >150 5 units for everY increments of 50 Active Ordered Medications Current Medications Medications (Trade) Dose Ordered Sig/Briana Route Start Time Stop Time Status Last Admin (NS Flush) 2 ml UNSCH PRN IV FLUSH 10/04/17 04:30 (NS Flush) 2 ml BID IV FLUSH 10/04/17 09:00 10/04/17 10:33 (Zofran Inj) 4 mg Q6H PRN IVP 10/04/17 04:30 (Heparin Inj) 5,000 units Q12H SQ 10/04/17 09:00 10/04/17 10:33 (Larisa-Colace) 1 tab BID PO 10/04/17 09:00 10/04/17 10:32 (Milk Of Magnesia Liq) 30 ml Q12H PRN PO 10/04/17 04:30 (Senokot) 17.2 mg Q12H PRN PO 10/04/17 04:30 (Dulcolax Supp) 10 mg DAILY PRN RECTAL 10/04/17 04:30 (Lactulose Liq) 30 ml DAILY PRN PO 10/04/17 04:30 (Aspirin Chew) 81 mg DAILY CHEW 10/04/17 09:00 10/04/17 10:33 (Coreg) 3.125 mg Q12HR PO 10/04/17 09:00 10/04/17 10:32 (Plavix) 75 mg DAILY PO 10/04/17 09:00 10/04/17 10:32 (Spiriva Inh) 18 mcg DAILY INH 10/04/17 09:00 10/04/17 17:32 (Duoneb Neb) 1 ampule Q4HR NEB PRN NEB 10/04/17 04:45 10/04/17 04:58 (Lasix Inj) 40 mg BID@ IV PUSH 10/04/17 18:00 (D50w (Vial) Inj) 50 ml UNSCH PRN IV PUSH 10/04/17 15:45 (Glucagon Inj) 1 mg UNSCH PRN OTHER 10/04/17 15:45 (NovoLOG SUPPLEMENTAL SCALE) 1 ACHS SLIDING SCALE SQ 10/04/17 17:00 Family History Noncontributory Social History History of smoking in past Physical Exam Vital Signs Vital Signs Date Time Temp Pulse Resp B/P (MAP) Pulse Ox O2 Delivery O2 Flow Rate FiO2 10/04/17 15:44 97.5 77 19 135/65 (88) 98 10/04/17 15:00 83 10/04/17 12:42 97 Nasal Cannula 3.00 10/04/17 12:04 97.3 83 19 141/60 (87) 100 10/04/17 10:30 77 10/04/17 10:30 98 Nasal Cannula 2.00 21 10/04/17 08:01 98.0 83 17 129/58 (81) 98 10/04/17 06:17 Room Air 2.00 10/04/17 05:51 97.9 86 18 138/64 (88) 98 10/04/17 05:40 10/03/17 23:38 97 Nasal Cannula 2.00 10/03/17 23:36 97 2.00 10/03/17 23:36 25 97 Nasal Cannula 2.00 10/03/17 22:49 97.8 91 18 160/66 (97) 98 Room Air Physical Exam GENERAL: Well-nourished, well-developed patient. SKIN: Warm and dry. HEAD: Normocephalic. EYES: No scleral icterus. No injection or drainage. NECK: Supple, trachea midline. No JVD or lymphadenopathy. CARDIOVASCULAR:regular rate and rhythm RESPIRATORY: Breath sounds diminished at bases with. Few crepitations GASTROINTESTINAL: Abdomen soft, non-tender, nondistended. EXTREMITIES: No cyanosis, 2+ edema. NEUROLOGICAL: Awake, alert, and oriented x 3. Non-focal. Laboratory Laboratory Tests Test 10/03/17 23:30 10/04/17 03:10 10/04/17 10:55 White Blood Count 7.2 Red Blood Count 3.78 Hemoglobin 10.2 Hematocrit 31.9 Mean Corpuscular Volume 84.4 Mean Corpuscular Hemoglobin 26.8 Mean Corpuscular Hemoglobin Concent 31.8 Red Cell Distribution Width 18.5 Platelet Count 194 Mean Platelet Volume 9.1 Neutrophils (%) (Auto) 75.1 Lymphocytes (%) (Auto) 13.1 Monocytes (%) (Auto) 10.3 Eosinophils (%) (Auto) 0.5 Basophils (%) (Auto) 1.0 Neutrophils # (Auto) 5.4 Lymphocytes # (Auto) 0.9 Monocytes # (Auto) 0.7 Eosinophils # (Auto) 0.0 Basophils # (Auto) 0.1 CBC Comment DIFF FINAL Differential Comment Prothrombin Time 12.0 Prothromb Time International Ratio 1.2 Activated Partial Thromboplast Time 24.0 D-Dimer Quantitative (PE/DVT) 1.16 Blood Urea Nitrogen 47 48 Creatinine 2.31 2.22 Random Glucose 224 205 Total Protein 6.8 Albumin 3.0 Calcium Level 8.3 8.5 Magnesium Level 1.8 Alkaline Phosphatase 150 Aspartate Amino Transf (AST/SGOT) 21 Alanine Aminotransferase (ALT/SGPT) 24 Total Bilirubin 1.1 Sodium Level 139 139 Potassium Level 4.1 3.8 Chloride Level 102 102 Carbon Dioxide Level 30.3 30.6 Anion Gap 7 6 Estimat Glomerular Filtration Rate 21 22 Total Creatine Kinase 51 Troponin I LESS THAN 0.02 LESS THAN 0.02 LESS THAN 0.02 B-Type Natriuretic Peptide GREATER THAN 5000 Result Diagram: 10/03/17 2330 10/04/17 0310 Imaging Last Impressions Lung Scan-VQ Nuclear Medicine 10/04/17 0000 Signed Impressions: Service Date/Time: Wednesday, October 04, 2017 08:26 - CONCLUSION: Examination is low probability for PE. There is a potential subsegmental matched defect in the posterior right midlung. Otherwise, no ventilation/perfusion mismatch is identified. Castillo Gonzalez MD Lower Extremity Ultrasound 10/04/17 0000 Signed Impressions: Service Date/Time: Wednesday, October 04, 2017 01:46 - CONCLUSION: 1. No sonographic evidence for lower extremity DVT. León Chairez MD Chest X-Ray 10/03/17 2305 Signed Impressions: Service Date/Time: Tuesday, October 03, 2017 23:13 - CONCLUSION: 1. Interval removal of temporary dialysis catheter. 2. Improved right-sided pleural effusion with residual mild bibasilar airspace disease and small bilateral pleural effusions. León Chairez MD Assessment and Plan Problem List: (1) Acute renal failure ICD Codes: N17.9 - Acute kidney failure, unspecified Status: Acute Plan: This seems to be resolving with diuretics and I agree she has cardiorenal syndrome Avoid dye study Avoid nephrotoxins She recovered from dye-induced acute renal failure requiring hemodialysis recently (2) Chronic kidney disease ICD Codes: N18.9 - Chronic kidney disease, unspecified Status: Chronic Plan: Zaroxolyn added monitor kidney functions continue with IV Lasix (3) CHF exacerbation ICD Codes: I50.9 - Heart failure, unspecified Plan: Cardiology following on diuretics (4) DM (diabetes mellitus) ICD Codes: E11.9 - Type 2 diabetes mellitus without complications Plan: Monitor blood glucose Problem Qualifiers (1) Chronic kidney disease: Qualified Codes: N18.9 - Chronic kidney disease, unspecified (2) CHF exacerbation: Qualified Codes: I50.9 - Heart failure, unspecified (3) DM (diabetes mellitus): Ehsan Cano MD Oct 04, 2017 18:11
[2017-10-04] MEDS: FUROSEMIDE 40 MG/4 ML VIAL IV PUSH SCH (18:59)
[2017-10-04] MEDS: INSULIN ASPART SUPPLEMENTAL SCALE SQ SCH ×2 (18:59→21:00)
[2017-10-05] VITALS (13 sets, daily range): BP systolic 127–153; BP diastolic 60–66; PULSE 73–87; RESP 16–20; TEMP 96.8–98.2; O2SAT 97–100
[2017-10-05] MEDS ORDERED: ACETAMINOPHEN 325 MG TAB PO ONE (02:15)
[2017-10-05] MEDS: RESP: ALBUTEROL 2.5 MG/IPRATROPIUM 0.5 MG NEB (PRN) NEB ×2 (02:34→07:35)
[2017-10-05 06:56] LABS: BASOPHIL % 0.7 % (0.0-2.0); EOSINOPHIL % 0.9 % (0.0-4.0); HEMATOCRIT 26.4 % (35.0-46.0); HEMOGLOBIN 8.5 GM/DL (11.6-15.3); LYMPH % 23.6 % (9.0-44.0); LYMPHOCYTE # 1.1 TH/MM3 (1.0-4.8); MEAN CELL VOLUME 84.9 FL (80.0-100.0); MEAN CORPUSCULAR HEMOGLOBIN 27.2 PG (27.0-34.0); MEAN CORPUSCULAR HGB CONC 32.1 % (32.0-36.0); MONO % 10.9 % (0.0-8.0); MONOCYTE # 0.5 TH/MM3 (0-0.9); NEUT % 63.9 % (16.0-70.0); PLATELET COUNT 144 TH/MM3 (150-450); RED BLOOD COUNT 3.11 MIL/MM3 (4.00-5.30); RED CELL DISTRIBUTION WIDTH 18.6 % (11.6-17.2); WHITE BLOOD COUNT 4.7 TH/MM3 (4.0-11.0)
[2017-10-05 07:30] LABS: ALBUMIN 2.5 GM/DL (3.4-5.0); ALKALINE PHOSPHATASE 123 U/L (45-117); ALT (GPT) 16 U/L (10-53); AST (GOT) 16 U/L (15-37); BICARBONATE 31.2 MEQ/L (21.0-32.0); BLOOD UREA NITROGEN 46 MG/DL (7-18); CALCIUM 8.4 MG/DL (8.5-10.1); CHLORIDE 102 MEQ/L (98-107); CREATININE 2.15 MG/DL (0.50-1.00); GLOMERULAR FILTRATION RATE 22 ML/MIN (>89); GLUCOSE,RANDOM 84 MG/DL (74-106); SODIUM (NA) 140 MEQ/L (136-145); TOTAL PROTEIN 5.8 GM/DL (6.4-8.2)
[2017-10-05] MEDS: INSULIN ASPART SUPPLEMENTAL SCALE SQ SCH ×4 (07:58→21:00)
[2017-10-05] MEDS: DOCUSATE SODIUM 50 MG/SENNA 8.6 MG TAB PO SCH ×2 (09:00→22:04)
[2017-10-05] MEDS: CLOPIDOGREL 75 MG TAB PO SCH (09:11)
[2017-10-05] MEDS: ASPIRIN 81 MG CHEW TAB CHEW SCH (09:11)
[2017-10-05] MEDS: TIOTROPIUM BROMIDE 18 MCG INH INH SCH (09:11)
[2017-10-05] MEDS: CARVEDILOL 3.125 MG TAB PO SCH ×2 (09:12→22:04)
[2017-10-05] MEDS: SODIUM CHLORIDE 0.9% FLUSH 10 ML FLUSH IV FLUSH SCH ×2 (09:12→22:05)
[2017-10-05] MEDS: FUROSEMIDE 40 MG/4 ML VIAL IV PUSH SCH ×2 (09:13→18:26)
[2017-10-05] MEDS: METOLAZONE 5 MG TAB PO SCH (09:13)
[2017-10-05] MEDS: HEPARIN SODIUM - SQ 10,000 UNITS/ML VIAL SQ SCH ×2 (09:14→22:04)
--- NOTE | 2017-10-05 11:37 | PD.CARD.PN ---
Subjective Subjective Remarks No events overnight No chest pain SOB better Urinating well Edema better Objective Medications Current Medications Medications (Trade) Dose Ordered Sig/Briana Route Start Time Stop Time Status Last Admin (NS Flush) 2 ml UNSCH PRN IV FLUSH 10/04/17 04:30 (NS Flush) 2 ml BID IV FLUSH 10/04/17 09:00 10/05/17 09:12 (Zofran Inj) 4 mg Q6H PRN IVP 10/04/17 04:30 (Heparin Inj) 5,000 units Q12H SQ 10/04/17 09:00 10/05/17 09:14 (Larisa-Colace) 1 tab BID PO 10/04/17 09:00 10/04/17 21:58 (Milk Of Magnesia Liq) 30 ml Q12H PRN PO 10/04/17 04:30 (Senokot) 17.2 mg Q12H PRN PO 10/04/17 04:30 (Dulcolax Supp) 10 mg DAILY PRN RECTAL 10/04/17 04:30 (Lactulose Liq) 30 ml DAILY PRN PO 10/04/17 04:30 (Aspirin Chew) 81 mg DAILY CHEW 10/04/17 09:00 10/05/17 09:11 (Coreg) 3.125 mg Q12HR PO 10/04/17 09:00 10/05/17 09:12 (Plavix) 75 mg DAILY PO 10/04/17 09:00 10/05/17 09:11 (Spiriva Inh) 18 mcg DAILY INH 10/04/17 09:00 10/05/17 09:11 (Duoneb Neb) 1 ampule Q4HR NEB PRN NEB 10/04/17 04:45 10/05/17 07:35 (Lasix Inj) 40 mg BID@18 IV PUSH 10/04/17 18:00 10/05/17 09:13 (D50w (Vial) Inj) 50 ml UNSCH PRN IV PUSH 10/04/17 15:45 (Glucagon Inj) 1 mg UNSCH PRN OTHER 10/04/17 15:45 (NovoLOG SUPPLEMENTAL SCALE) 1 ACHS SLIDING SCALE SQ 10/04/17 17:00 10/04/17 18:59 (Zaroxolyn) 5 mg DAILY PO 10/05/17 09:00 10/05/17 09:13 Vital Signs / I&O Vital Signs Date Time Temp Pulse Resp B/P (MAP) Pulse Ox O2 Delivery O2 Flow Rate FiO2 10/05/17 09:15 98 Nasal Cannula 2.00 10/05/17 09:04 97.4 73 18 143/62 (89) 98 10/05/17 08:15 74 10/05/17 07:37 99 Nasal Cannula 2.00 10/05/17 04:21 73 10/05/17 04:15 98.2 74 16 127/60 (82) 98 10/05/17 02:35 98 Nasal Cannula 2.00 10/05/17 01:09 94 Nasal Cannula 2.00 10/05/17 00:17 76 10/04/17 23:46 98.5 74 16 119/57 (77) 97 10/04/17 21:49 Nasal Cannula 2.00 10/04/17 20:10 83 10/04/17 20:00 99 Nasal Cannula 3.00 10/04/17 19:47 98.0 83 20 125/60 (81) 97 10/04/17 15:44 97.5 77 19 135/65 (88) 98 10/04/17 15:00 83 10/04/17 12:42 97 Nasal Cannula 3.00 10/04/17 12:04 97.3 83 19 141/60 (87) 100 I/O 10/04/17 10/04/17 10/04/17 10/05/17 10/05/17 10/05/17 07:00 15:00 23:00 07:00 15:00 23:00 Intake Total 486 ml 200 ml Output Total 870 ml Balance 486 ml -670 ml Intake Oral 480 ml 200 ml IV Total 6 ml Output Urine Total 870 ml # Bowel Movements 0 Physical Exam GENERAL: NAD, AAOx3 SKIN: Warm and dry. HEAD: Atraumatic. Normocephalic. EYES: Pupils equal and round. No scleral icterus. No injection or drainage. ENT: No nasal bleeding or discharge. Mucous membranes pink and moist. NECK: Trachea midline. No JVD. CARDIOVASCULAR: Regular rate and rhythm. RESPIRATORY: No accessory muscle use. Clear to auscultation. Breath sounds equal bilaterally. GASTROINTESTINAL: Abdomen soft, non-tender, nondistended. Hepatic and splenic margins not palpable. MUSCULOSKELETAL: Trace edema NEUROLOGICAL: Awake and alert. No obvious cranial nerve deficits. Motor grossly within normal limits. Five out of 5 muscle strength in the arms and legs. Normal speech. PSYCHIATRIC: Appropriate mood and affect; insight and judgment normal. Laboratory Laboratory Tests Test 10/04/17 20:10 10/05/17 06:13 10/05/17 06:15 Troponin I LESS THAN 0.02 NG/ML White Blood Count 4.7 TH/MM3 Red Blood Count 3.11 MIL/MM3 Hemoglobin 8.5 GM/DL Hematocrit 26.4 % Mean Corpuscular Volume 84.9 FL Mean Corpuscular Hemoglobin 27.2 PG Mean Corpuscular Hemoglobin Concent 32.1 % Red Cell Distribution Width 18.6 % Platelet Count 144 TH/MM3 Mean Platelet Volume 9.0 FL Neutrophils (%) (Auto) 63.9 % Lymphocytes (%) (Auto) 23.6 % Monocytes (%) (Auto) 10.9 % Eosinophils (%) (Auto) 0.9 % Basophils (%) (Auto) 0.7 % Neutrophils # (Auto) 3.0 TH/MM3 Lymphocytes # (Auto) 1.1 TH/MM3 Monocytes # (Auto) 0.5 TH/MM3 Eosinophils # (Auto) 0.0 TH/MM3 Basophils # (Auto) 0.0 TH/MM3 CBC Comment DIFF FINAL Differential Comment Blood Urea Nitrogen 46 MG/DL Creatinine 2.15 MG/DL Random Glucose 84 MG/DL Total Protein 5.8 GM/DL Albumin 2.5 GM/DL Calcium Level 8.4 MG/DL Alkaline Phosphatase 123 U/L Aspartate Amino Transf (AST/SGOT) 16 U/L Alanine Aminotransferase (ALT/SGPT) 16 U/L Total Bilirubin 1.0 MG/DL Sodium Level 140 MEQ/L Potassium Level 3.8 MEQ/L Chloride Level 102 MEQ/L Carbon Dioxide Level 31.2 MEQ/L Anion Gap 7 MEQ/L Estimat Glomerular Filtration Rate 22 ML/MIN Assessment and Plan Problem List: (1) CHF (congestive heart failure) ICD Codes: I50.9 - Heart failure, unspecified Status: Acute (2) Edema of lower extremity ICD Codes: R60.0 - Localized edema (3) Chronic kidney disease ICD Codes: N18.9 - Chronic kidney disease, unspecified Status: Chronic (4) Restrictive lung disease ICD Codes: J98.4 - Other disorders of lung (5) CAD (coronary artery disease) ICD Codes: I25.10 - Atherosclerotic heart disease of [place] coronary artery without angina pectoris Status: Chronic (6) Insulin dependent diabetes mellitus ICD Codes: E11.9 - Type 2 diabetes mellitus without complications; 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
[2017-10-05 14:02] LABS: BACTERIA, URINE RARE /hpf; BILIRUBIN, URINE NEG (NEG); BLOOD, URINE NEG (NEG); GLUCOSE,URINE NEG (NEG); KETONE, URINE NEG (NEG); NITRITE,URINE NEG (NEG); SQUAMOUS EPITHELIAL CELL URINE <1 /hpf (0-5); URINE COLOR LIGHT-YELLOW (YELLW/STRAW); URINE LEUKOCYTE ESTERASE SMALL (NEG)
--- NOTE | 2017-10-05 14:29 | HHI.PR ---
Subjective Remarks Patient reports she is feeling better. Breathing status has improved. Lower extremity edema has improved. Objective Vitals Vital Signs Date Time Temp Pulse Resp B/P (MAP) Pulse Ox O2 Delivery O2 Flow Rate FiO2 10/05/17 12:40 96.8 73 139/65 (89) 98 10/05/17 11:25 77 10/05/17 09:15 98 Nasal Cannula 2.00 10/05/17 09:04 97.4 73 18 143/62 (89) 98 10/05/17 08:15 74 10/05/17 07:37 99 Nasal Cannula 2.00 10/05/17 04:21 73 10/05/17 04:15 98.2 74 16 127/60 (82) 98 10/05/17 02:35 98 Nasal Cannula 2.00 10/05/17 01:09 94 Nasal Cannula 2.00 10/05/17 00:17 76 10/04/17 23:46 98.5 74 16 119/57 (77) 97 10/04/17 21:49 Nasal Cannula 2.00 10/04/17 20:10 83 10/04/17 20:00 99 Nasal Cannula 3.00 10/04/17 19:47 98.0 83 20 125/60 (81) 97 10/04/17 15:44 97.5 77 19 135/65 (88) 98 10/04/17 15:00 83 I/O 10/04/17 10/04/17 10/04/17 10/05/17 10/05/17 10/05/17 07:00 15:00 23:00 07:00 15:00 23:00 Intake Total 486 ml 200 ml Output Total 870 ml Balance 486 ml -670 ml Intake Oral 480 ml 200 ml IV Total 6 ml Output Urine Total 870 ml # Bowel Movements 0 Result Diagram: 10/05/17 0613 10/05/17 0615 Objective Remarks GENERAL: Chronically ill-appearing female in no acute distress. CARDIOVASCULAR: Normal rate and regular rhythm. No murmur appreciated. RESPIRATORY: No accessory muscle use. Decreased breath sounds diffusely. Faint bilateral basilar crackles GASTROINTESTINAL: Abdomen soft, non-tender, nondistended. Normoactive bowel sounds x4. 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 1+ bilateral lower extremity pitting edema from feet to distal knee. PSYCHIATRIC: Appropriate mood and affect; insight and judgment normal. A/P Problem List: (1) CHF (congestive heart failure) ICD Code: I50.9 - Heart failure, unspecified Status: Acute (2) Renal insufficiency ICD Code: N28.9 - Disorder of kidney and ureter, unspecified (3) COPD (chronic obstructive pulmonary disease) ICD Code: J44.9 - Chronic obstructive pulmonary disease, unspecified (4) DM (diabetes mellitus) ICD Code: E11.9 - Type 2 diabetes mellitus without complications Assessment and Plan 71-year-old female with a PMH of HTN, Hyperlipidemia, CHF (Echo 09/13/17 w/ EF 25- 30%), COPD, DM and CKD who presented to the ER w/ complaints of severe SOB and worsening lower extremity edema. Recent admit 09/12-09/29/17 for CHF Exacerbation , ARF secondary to contrast from Cardiac Cath requiring transient HD, following w/ Dr. Muniz and Dr. Cano. Acute on chronic systolic CHF: Significant 2-3+ BLE edema upon arrival. Echo 09/13 with EF 25-30%. BNP greater than 5000. -CXR images shows residual mild bibasilar airspace disease, small bilateral pleural effusions. -D-dimer elevated, VQ scan with low probability for PE -S/p IV Lasix total 120mg upon arrival -Continue diuresis with IV Lasix 40mg bid, caution with renal function -Monitor strict Is&Os, Monitor on telemetry -Continue patient's coreg, aspirin, plavix; holding verapamil -Appreciate cardiology input. Continue IV diuretics today with plan to discharge home tomorrow on higher dose of oral diuretics. MOE on CKD: patient is s/p recent acute renal failure from contrast after cardiac cath, requiring transient dialysis on prior admission -Cr 2.31 upon arrival, previously 1.99 upon discharge on 09/29 -Caution with diuretics -Appreciate nephrology input, cardiorenal syndrome. Renal functions improving -Monitor renal function CAD s/p CABG x3: chronic. No complaints of chest pain -continue patient's aspirin, plavix, BB -ACS ruled out with negative serial cardiac enzymes x3 -monitor on telemetry COPD/Pulmonary Hypertension: chronic, stable. Does not appear to be in acute exacerbation -continue patient's Spiriva, duonebs prn Diabetes mellitus: chronic, HgbA1c 7.5 on 09/24/17. Patient reports she does not do well with any long acting insulin, and only on sliding scale insulin at home. -Monitor accu-checks and cover with SSI Discharge Planning Continue current treatment. Probable discharge tomorrow if she continues to improve. May benefit from home health Problem Qualifiers (1) DM (diabetes mellitus): Ventura Singh MD Oct 05, 2017 14:29
--- NOTE | 2017-10-05 15:22 | HHI.NPPN ---
Subjective History of Present Illness 72-year-old with chronic kidney disease and acute renal failure, CHF, peripheral edema Review of Systems General Constitutional: Fatigue Cardiovascular Cardiac: Edema Objective Data Data Vital Signs Date Time Temp Pulse Resp B/P (MAP) Pulse Ox O2 Delivery O2 Flow Rate FiO2 10/05/17 12:40 96.8 73 139/65 (89) 98 10/05/17 11:25 77 10/05/17 09:15 98 Nasal Cannula 2.00 10/05/17 09:04 97.4 73 18 143/62 (89) 98 10/05/17 08:15 74 10/05/17 07:37 99 Nasal Cannula 2.00 10/05/17 04:21 73 10/05/17 04:15 98.2 74 16 127/60 (82) 98 10/05/17 02:35 98 Nasal Cannula 2.00 10/05/17 01:09 94 Nasal Cannula 2.00 10/05/17 00:17 76 10/04/17 23:46 98.5 74 16 119/57 (77) 97 10/04/17 21:49 Nasal Cannula 2.00 10/04/17 20:10 83 10/04/17 20:00 99 Nasal Cannula 3.00 10/04/17 19:47 98.0 83 20 125/60 (81) 97 10/04/17 15:44 97.5 77 19 135/65 (88) 98 -: 10/05/17 0613 10/05/17 0615 Physical Exam General Appearance: Well Developed Neck Neck Exam: Neck Supple Pulmonary Resp Exam: Decreased Bases Cardiology CV Exam: Regular Gastrointestinal/Abdomen GI Exam: Soft, Bowel Sounds Present Extremeties Extremities Exam: Moderate Edema Assessment/Plan Problem List: (1) Acute renal failure ICD Codes: N17.9 - Acute kidney failure, unspecified Status: Acute Plan: Creatinine declined to 2.1 she has cardiorenal syndrome she is on diuretics Zaroxolyn added to loop diuretic Avoid dye study Avoid nephrotoxins She recovered from dye-induced acute renal failure requiring hemodialysis recently For anemia will give Epogen 20,000 subcutaneous (2) Chronic kidney disease ICD Codes: N18.9 - Chronic kidney disease, unspecified Status: Chronic Plan: Zaroxolyn added monitor kidney functions continue with IV Lasix (3) CHF exacerbation ICD Codes: I50.9 - Heart failure, unspecified Plan: Cardiology following on diuretics (4) DM (diabetes mellitus) ICD Codes: E11.9 - Type 2 diabetes mellitus without complications Plan: Monitor blood glucose Problem Qualifiers (1) Chronic kidney disease: Qualified Codes: N18.9 - Chronic kidney disease, unspecified (2) CHF exacerbation: Qualified Codes: I50.9 - Heart failure, unspecified (3) DM (diabetes mellitus): Ehsan Cano MD Oct 05, 2017 15:22
[2017-10-05] MEDS ORDERED: EPOETIN ALFA 20,000 UNITS/ML VIAL SQ ONE (18:30)
[2017-10-06 05:16] VITALS: BP 148/68; PULSE 83; RESP 16; TEMP 97.9; O2SAT 95
[2017-10-06 07:00] LABS: AUTOMATED NEUTROPHIL # 3.8 TH/MM3 (1.8-7.7); BASOPHIL % 0.7 % (0.0-2.0); EOSINOPHIL # 0.1 TH/MM3 (0-0.4); HEMATOCRIT 30.7 % (35.0-46.0); HEMOGLOBIN 9.7 GM/DL (11.6-15.3); LYMPH % 19.8 % (9.0-44.0); LYMPHOCYTE # 1.1 TH/MM3 (1.0-4.8); MEAN CELL VOLUME 85.1 FL (80.0-100.0); MEAN CORPUSCULAR HEMOGLOBIN 26.8 PG (27.0-34.0); MEAN CORPUSCULAR HGB CONC 31.5 % (32.0-36.0); MEAN PLATELET VOLUME 9.1 FL (7.0-11.0); MONO % 8.2 % (0.0-8.0); MONOCYTE # 0.4 TH/MM3 (0-0.9); NEUT % 70.3 % (16.0-70.0); PLATELET COUNT 172 TH/MM3 (150-450); RED CELL DISTRIBUTION WIDTH 18.6 % (11.6-17.2); WHITE BLOOD COUNT 5.4 TH/MM3 (4.0-11.0)
[2017-10-06 07:15] VITALS: PULSE 80
[2017-10-06 07:19] LABS: ALBUMIN 2.9 GM/DL (3.4-5.0); BICARBONATE 33.5 MEQ/L (21.0-32.0); CALCIUM 9.1 MG/DL (8.5-10.1); CREATININE 2.17 MG/DL (0.50-1.00); PHOSPHORUS 3.6 MG/DL (2.5-4.9)
[2017-10-06] MEDS: INSULIN ASPART SUPPLEMENTAL SCALE SQ SCH ×2 (07:59→13:54)
[2017-10-06 08:51] VITALS: BP 151/70; PULSE 83; RESP 20; TEMP 97.5; O2SAT 95
[2017-10-06] MEDS: DOCUSATE SODIUM 50 MG/SENNA 8.6 MG TAB PO SCH (09:00)
[2017-10-06] MEDS: ASPIRIN 81 MG CHEW TAB CHEW SCH (09:17)
[2017-10-06] MEDS: SODIUM CHLORIDE 0.9% FLUSH 10 ML FLUSH IV FLUSH SCH (09:17)
[2017-10-06] MEDS: TIOTROPIUM BROMIDE 18 MCG INH INH SCH (09:17)
[2017-10-06] MEDS: METOLAZONE 5 MG TAB PO SCH (09:18)
[2017-10-06] MEDS: CLOPIDOGREL 75 MG TAB PO SCH (09:18)
[2017-10-06] MEDS: CARVEDILOL 3.125 MG TAB PO SCH (09:18)
[2017-10-06] MEDS: HEPARIN SODIUM - SQ 10,000 UNITS/ML VIAL SQ SCH (09:25)
[2017-10-06] MEDS: FUROSEMIDE 40 MG/4 ML VIAL IV PUSH SCH (09:26)
[2017-10-06 12:08] VITALS: BP 142/61; PULSE 80; RESP 18; TEMP 97.3; O2SAT 92
--- NOTE | 2017-10-06 14:38 | HHI.PR ---
Subjective Remarks Lower extremity edema. She is not short of breath. No vomiting no diarrhea or constipation. He feels better and she wants to go home. As with the case management. Patient is PT at home. Objective Vitals Vital Signs Date Time Temp Pulse Resp B/P (MAP) Pulse Ox O2 Delivery O2 Flow Rate FiO2 10/06/17 12:08 97.3 80 18 142/61 (88) 92 10/06/17 09:27 Nasal Cannula 2.00 10/06/17 08:51 97.5 83 20 151/70 (97) 95 10/06/17 07:15 80 10/06/17 05:16 97.9 83 16 148/68 (94) 95 10/05/17 23:23 98.1 87 20 143/63 (89) 97 10/05/17 19:30 Nasal Cannula 2.00 10/05/17 19:17 97.4 84 16 153/66 (95) 100 10/05/17 19:00 96 Nasal Cannula 2.00 10/05/17 17:33 97.5 80 18 138/61 (86) 100 10/05/17 16:30 75 I/O 10/05/17 10/05/17 10/05/17 10/06/17 10/06/17 10/06/17 07:00 15:00 23:00 07:00 15:00 23:00 Intake Total 200 ml 620 ml 240 ml 480 ml Output Total 870 ml 1200 ml 1350 ml Balance -670 ml -580 ml -1110 ml 480 ml Intake Oral 200 ml 620 ml 240 ml 480 ml Output Urine Total 870 ml 1200 ml 1350 ml # Bowel Movements 0 1 1 Result Diagram: 10/06/17 0629 10/06/17 0629 Imaging Last Impressions Lung Scan-VQ Nuclear Medicine 10/04/17 0000 Signed Impressions: Service Date/Time: Wednesday, October 04, 2017 08:26 - CONCLUSION: Examination is low probability for PE. There is a potential subsegmental matched defect in the posterior right midlung. Otherwise, no ventilation/perfusion mismatch is identified. Castillo Gonzalez MD Lower Extremity Ultrasound 10/04/17 0000 Signed Impressions: Service Date/Time: Wednesday, October 04, 2017 01:46 - CONCLUSION: 1. No sonographic evidence for lower extremity DVT. León Chairez MD Chest X-Ray 10/03/17 6034 Signed Impressions: Service Date/Time: Tuesday, October 03, 2017 23:13 - CONCLUSION: 1. Interval removal of temporary dialysis catheter. 2. Improved right-sided pleural effusion with residual mild bibasilar airspace disease and small bilateral pleural effusions. León Chairez MD Objective Remarks GENERAL: Chronically ill-appearing female in no acute distress. CARDIOVASCULAR: Normal rate and regular rhythm. No murmur appreciated. RESPIRATORY: No accessory muscle use. Decreased breath sounds diffusely. Faint bilateral basilar crackles GASTROINTESTINAL: Abdomen soft, non-tender, nondistended. Normoactive bowel sounds x4. 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 1+ bilateral lower extremity pitting edema from feet to distal knee. PSYCHIATRIC: Appropriate mood and affect; insight and judgment normal. A/P Problem List: (1) CHF (congestive heart failure) ICD Code: I50.9 - Heart failure, unspecified Status: Acute (2) Renal insufficiency ICD Code: N28.9 - Disorder of kidney and ureter, unspecified (3) COPD (chronic obstructive pulmonary disease) ICD Code: J44.9 - Chronic obstructive pulmonary disease, unspecified (4) DM (diabetes mellitus) ICD Code: E11.9 - Type 2 diabetes mellitus without complications Assessment and Plan 71-year-old female with a PMH of HTN, Hyperlipidemia, CHF (Echo 09/13/17 w/ EF 25- 30%), COPD, DM and CKD who presented to the ER w/ complaints of severe SOB and worsening lower extremity edema. Recent admit 09/12-09/29/17 for CHF Exacerbation , ARF secondary to contrast from Cardiac Cath requiring transient HD, following w/ Dr. Muniz and Dr. Cano. Acute on chronic systolic CHF: Significant 2-3+ BLE edema upon arrival. Echo 09/13 with EF 25-30%. BNP greater than 5000. -CXR images shows residual mild bibasilar airspace disease, small bilateral pleural effusions. -D-dimer elevated, VQ scan with low probability for PE -S/p IV Lasix total 120mg upon arrival -Continue diuresis with IV Lasix 40mg bid, caution with renal function -Monitor strict Is&Os, Monitor on telemetry -Continue patient's coreg, aspirin, plavix; holding verapamil -Appreciate cardiology input. Continue IV diuretics today with plan to discharge home tomorrow on higher dose of oral diuretics. MOE on CKD: patient is s/p recent acute renal failure from contrast after cardiac cath, requiring transient dialysis on prior admission -Cr 2.31 upon arrival, previously 1.99 upon discharge on 09/29 -Caution with diuretics -Appreciate nephrology input, cardiorenal syndrome. Renal functions improving -Monitor renal function CAD s/p CABG x3: chronic. No complaints of chest pain -continue patient's aspirin, plavix, BB -ACS ruled out with negative serial cardiac enzymes x3 -monitor on telemetry COPD/Pulmonary Hypertension: chronic, stable. Does not appear to be in acute exacerbation -continue patient's kayla Lu prn Diabetes mellitus: chronic, HgbA1c 7.5 on 09/24/17. Patient reports she does not do well with any long acting insulin, and only on sliding scale insulin at home. -Monitor accu-checks and cover with SSI Discharge Planning Continue current treatment. May benefit from home health Problem Qualifiers (1) DM (diabetes mellitus): Sailaja Hoffmann MD Oct 06, 2017 14:38
[2017-10-06] MEDS ORDERED: METO5TAB3 PO (14:42)
--- NOTE | 2017-10-06 14:42 | HHI.DS ---
Discharge Summary Admission Date Oct 04, 2017 at 13:58 Discharge Date: Oct 06, 2017 Admitting Diagnosis CHF (1) CHF (congestive heart failure) ICD Code: I50.9 - Heart failure, unspecified Status: Acute (2) Renal insufficiency ICD Code: N28.9 - Disorder of kidney and ureter, unspecified (3) COPD (chronic obstructive pulmonary disease) ICD Code: J44.9 - Chronic obstructive pulmonary disease, unspecified (4) DM (diabetes mellitus) ICD Code: E11.9 - Type 2 diabetes mellitus without complications Procedures none Brief History - From Admission This is a 71-year-old female with a PMH of HTN, Hyperlipidemia, CHF (Echo w/ EF 25-30%), COPD, DM and CKD who presented to the ER w/ complaints of severe SOB and worsening lower extremity edema. Recent admit 09/12-09/29/17 for CHF Exacerbation, ARF secondary to contrast from Cardiac Cath requiring transient HD, following w/ Dr. Muniz and Dr. Cano. Had been doing well at time of discharge, however states she's had progressive worsening of edema and SOB. On Lasix 20mg po qd, seen by PCP and instructed to take 30mg as needed for edema, however notes no improvement. Denies chest pain, cough, fever or chills. On arrival, BP 160/66, HR 91, O2 sat 98% on RA, Afebrile. CBC unremarkable. Current 2.31, producing 1.99 on 09/29/17. Troponin negative. BNP greater than 5000. INR 1.2. D-dimer 1.16. CXR with removal of temporary dialysis catheter, improve right-sided pleural effusion, small bilateral pleural effusions. LE Doppler negative for DVT. S/p Lasix 80mg IV in addition to Lasix 40mg IV in ER. V/Q pending. CBC/BMP: 10/06/17 0629 10/06/17 0629 Significant Findings Laboratory Tests Test 10/03/17 23:30 10/04/17 03:10 10/04/17 10:55 10/04/17 20:10 Red Blood Count 3.78 MIL/MM3 (4.00-5.30) Hemoglobin 10.2 GM/DL (11.6-15.3) Hematocrit 31.9 % (35.0-46.0) Mean Corpuscular Hemoglobin 26.8 PG (27.0-34.0) Mean Corpuscular Hemoglobin Concent 31.8 % (32.0-36.0) Red Cell Distribution Width 18.5 % (11.6-17.2) Neutrophils (%) (Auto) 75.1 % (16.0-70.0) Monocytes (%) (Auto) 10.3 % (0.0-8.0) Lymphocytes # (Auto) 0.9 TH/MM3 (1.0-4.8) Prothrombin Time 12.0 SEC (9.8-11.6) Activated Partial Thromboplast Time 24.0 SEC (24.3-30.1) D-Dimer Quantitative (PE/DVT) 1.16 MG/L FEU (0.00-0.50) Blood Urea Nitrogen 47 MG/DL (7-18) 48 MG/DL (7-18) Creatinine 2.31 MG/DL (0.50-1.00) 2.22 MG/DL (0.50-1.00) Random Glucose 224 MG/DL (74-106) 205 MG/DL (74-106) Albumin 3.0 GM/DL (3.4-5.0) Calcium Level 8.3 MG/DL (8.5-10.1) Alkaline Phosphatase 150 U/L (45-117) Total Bilirubin 1.1 MG/DL (0.2-1.0) Estimat Glomerular Filtration Rate 21 ML/MIN (>89) 22 ML/MIN (>89) Troponin I LESS THAN 0.02 NG/ML LESS THAN 0.02 NG/ML LESS THAN 0.02 NG/ML LESS THAN 0.02 NG/ML B-Type Natriuretic Peptide GREATER THAN 5000 PG/ML Test 10/05/17 06:13 10/05/17 06:15 10/05/17 13:33 10/06/17 06:29 Red Blood Count 3.11 MIL/MM3 (4.00-5.30) 3.60 MIL/MM3 (4.00-5.30) Hemoglobin 8.5 GM/DL (11.6-15.3) 9.7 GM/DL (11.6-15.3) Hematocrit 26.4 % (35.0-46.0) 30.7 % (35.0-46.0) Red Cell Distribution Width 18.6 % (11.6-17.2) 18.6 % (11.6-17.2) Platelet Count 144 TH/MM3 (150-450) Monocytes (%) (Auto) 10.9 % (0.0-8.0) 8.2 % (0.0-8.0) Blood Urea Nitrogen 46 MG/DL (7-18) 45 MG/DL (7-18) Creatinine 2.15 MG/DL (0.50-1.00) 2.17 MG/DL (0.50-1.00) Total Protein 5.8 GM/DL (6.4-8.2) Albumin 2.5 GM/DL (3.4-5.0) 2.9 GM/DL (3.4-5.0) Calcium Level 8.4 MG/DL (8.5-10.1) Alkaline Phosphatase 123 U/L (45-117) Estimat Glomerular Filtration Rate 22 ML/MIN (>89) 22 ML/MIN (>89) Urine Protein 30 mg/dL (NEG-TRACE) Urine Leukocyte Esterase SMALL (NEG) Urine Bacteria RARE /hpf (NONE) Mean Corpuscular Hemoglobin 26.8 PG (27.0-34.0) Mean Corpuscular Hemoglobin Concent 31.5 % (32.0-36.0) Neutrophils (%) (Auto) 70.3 % (16.0-70.0) Random Glucose 113 MG/DL (74-106) Carbon Dioxide Level 33.5 MEQ/L (21.0-32.0) Imaging Last Impressions Lung Scan-VQ Nuclear Medicine 10/04/17 0000 Signed Impressions: Service Date/Time: Wednesday, October 04, 2017 08:26 - CONCLUSION: Examination is low probability for PE. There is a potential subsegmental matched defect in the posterior right midlung. Otherwise, no ventilation/perfusion mismatch is identified. Castillo Gonzalez MD Lower Extremity Ultrasound 10/04/17 0000 Signed Impressions: Service Date/Time: Wednesday, October 04, 2017 01:46 - CONCLUSION: 1. No sonographic evidence for lower extremity DVT. León Chairez MD Chest X-Ray 10/03/17 [id number] Signed Impressions: Service Date/Time: Tuesday, October 03, 2017 23:13 - CONCLUSION: 1. Interval removal of temporary dialysis catheter. 2. Improved right-sided pleural effusion with residual mild bibasilar airspace disease and small bilateral pleural effusions. León Chairez MD PE at Discharge GENERAL: Chronically ill-appearing female in no acute distress. CARDIOVASCULAR: Normal rate and regular rhythm. No murmur appreciated. RESPIRATORY: No accessory muscle use. Decreased breath sounds diffusely. Faint bilateral basilar crackles GASTROINTESTINAL: Abdomen soft, non-tender, nondistended. Normoactive bowel sounds x4. 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 1+ bilateral lower extremity pitting edema from feet to distal knee. PSYCHIATRIC: Appropriate mood and affect; insight and judgment normal. Hospital Course 71-year-old female with a PMH of HTN, Hyperlipidemia, CHF (Echo 09/13/17 w/ EF 25- 30%), COPD, DM and CKD who presented to the ER w/ complaints of severe SOB and worsening lower extremity edema. Recent admit 09/12-09/29/17 for CHF Exacerbation , ARF secondary to contrast from Cardiac Cath requiring transient HD, following w/ Dr. Muniz and Dr. Cano. Acute on chronic systolic CHF: Significant 2-3+ BLE edema upon arrival. Echo 09/13 with EF 25-30%. BNP greater than 5000. -CXR images shows residual mild bibasilar airspace disease, small bilateral pleural effusions. -D-dimer elevated, VQ scan with low probability for PE -S/p IV Lasix total 120mg upon arrival -Continue diuresis with IV Lasix 40mg bid, caution with renal function -Monitor strict Is&Os, Monitor on telemetry -Continue patient's coreg, aspirin, plavix; holding verapamil -Appreciate cardiology input. Received IV diuretics. Discharge home on oral diuretics. MOE on CKD: patient is s/p recent acute renal failure from contrast after cardiac cath, requiring transient dialysis on prior admission -Cr 2.31 upon arrival, previously 1.99 upon discharge on 09/29 -Caution with diuretics -Appreciate nephrology input, cardiorenal syndrome. Renal functions improving -Monitor renal function CAD s/p CABG x3: chronic. No complaints of chest pain -continue patient's aspirin, plavix, BB -ACS ruled out with negative serial cardiac enzymes x3 -monitor on telemetry COPD/Pulmonary Hypertension: chronic, stable. Does not appear to be in acute exacerbation -continue patient's kayla Lu prn Diabetes mellitus: chronic, HgbA1c 7.5 on 09/24/17. Patient reports she does not do well with any long acting insulin, and only on sliding scale insulin at home. -Monitor accu-checks and cover with SSI Discharge Planning Patient improved, DC home with home health in stable condition, to follow-up with PCP and consultants as outpatient. Pt Condition on Discharge: Stable Discharge Disposition: Disch w/ Home Health Serv Discharge Time: > 30 minutes Discharge Instructions DIET: Follow Instructions for: Heart Healthy Diet Activities you can perform: Regular-No Restrictions Follow up Referrals: Cardiology - 2 Weeks Nephrology - 1 Week PCP Follow-up - 2-3 Days New Medications: Wheelchair Elevated Leg (Wheelchair Elevated Leg) 1 Mis Mis EA .XX DIRECTED, #1 0 Refills Metolazone (Metolazone) 5 Mg Tab 5 MG PO DAILY for edema , #30 TAB Continued Medications: Aspirin (Tgt Aspirin) 81 Mg Chw 81 MG CHEW DAILY for Blood Clot Prevention, #30 EA Carvedilol (Coreg) 3.125 Mg Tab 3.125 MG PO Q12HR for cad, #60 TAB Cholecalciferol (Vitamin D3) 5,000 Unit Cap 5000 UNITS PO DAILY for vitamin deficiency, #30 CAP Clopidogrel (Plavix) 75 Mg Tab 75 MG PO DAILY for Blood Clot Prevention, #30 TAB Furosemide (Furosemide) 40 Mg Tab 40 MG PO DAILY for fluid rettention, #30 TAB 0 Refills Insulin Aspart (Novolog Penfill) 100 Unit/Ml Inj 5 SC DIRECTED <150 no coverage. >150 5 units for everY increments of 50 Paricalcitol (Zemplar) 1 Mcg Cap 1 MCG PO DAILY for hyperparathyroidism, #30 CAP Tiotropium Inh (Spiriva Handihaler) 18 Mcg Cap 18 MCG INH DAILY for Shortness of Breath, #30 CAP 1 capsule = 18 mcg Verapamil (Verapamil) 40 Mg Tab 40 MG PO DAILY for cad, #30 TAB Vitamin B Cmplx/Vit C/Folic AC (Nephro-Natalee Rx) 1 Tab 1 CAP PO DAILY for vitamin deficiency, #30 TAB Discontinued Medications: Amoxicillin (Amoxicillin) 250 Mg Cap 250 MG PO TID for Infection, #6 CAP Sailaja Hoffmann MD Oct 06, 2017 14:42
--- NOTE | 2017-10-06 14:42 | HHI.NPPN ---
Subjective History of Present Illness 72-year-old with chronic kidney disease and acute renal failure, CHF, peripheral edema Review of Systems General Constitutional: Fatigue Cardiovascular Cardiac: Edema Objective Data Data 10/06/17 10/07/17 19:00 07:00 Intake Total 480 ml Balance 480 ml Intake Oral 480 ml Vital Signs Date Time Temp Pulse Resp B/P (MAP) Pulse Ox O2 Delivery O2 Flow Rate FiO2 10/06/17 12:08 97.3 80 18 142/61 (88) 92 10/06/17 09:27 Nasal Cannula 2.00 10/06/17 08:51 97.5 83 20 151/70 (97) 95 10/06/17 07:15 80 10/06/17 05:16 97.9 83 16 148/68 (94) 95 10/05/17 23:23 98.1 87 20 143/63 (89) 97 10/05/17 19:30 Nasal Cannula 2.00 10/05/17 19:17 97.4 84 16 153/66 (95) 100 10/05/17 19:00 96 Nasal Cannula 2.00 10/05/17 17:33 97.5 80 18 138/61 (86) 100 10/05/17 16:30 74 -: 10/06/17 0629 10/06/17 0629 Physical Exam General Appearance: Well Developed Neck Neck Exam: Neck Supple Pulmonary Resp Exam: Decreased Bases Cardiology CV Exam: Regular Gastrointestinal/Abdomen GI Exam: Soft, Bowel Sounds Present Extremeties Extremities Exam: Moderate Edema Assessment/Plan Problem List: (1) Acute renal failure ICD Codes: N17.9 - Acute kidney failure, unspecified Status: Acute Plan: Creatinine declined to 2.17 she has cardiorenal syndrome she is on diuretics Zaroxolyn added to loop diuretic Avoid dye study Avoid nephrotoxins She recovered from dye-induced acute renal failure requiring hemodialysis recently changed to po Lasix 80 mg daily along with Zaroxolyn can be dc from Nephrology point of view (2) Chronic kidney disease ICD Codes: N18.9 - Chronic kidney disease, unspecified Status: Chronic Plan: Zaroxolyn added monitor kidney functions continue with IV Lasix (3) CHF exacerbation ICD Codes: I50.9 - Heart failure, unspecified Plan: Cardiology following on diuretics (4) DM (diabetes mellitus) ICD Codes: E11.9 - Type 2 diabetes mellitus without complications Plan: Monitor blood glucose Problem Qualifiers (1) Chronic kidney disease: Qualified Codes: N18.9 - Chronic kidney disease, unspecified (2) CHF exacerbation: Qualified Codes: I50.9 - Heart failure, unspecified (3) DM (diabetes mellitus): Ehsan Cano MD Oct 06, 2017 14:42
--- NOTE | 2017-10-06 14:45 | HHI.FF ---
Face to Face Verification Diagnosis: (1) Edema of lower extremity (2) CHF exacerbation (3) Chronic kidney disease (4) Restrictive lung disease (5) Acute renal failure (6) CAD (coronary artery disease) (7) Insulin dependent diabetes mellitus (8) COPD (chronic obstructive pulmonary disease) (9) Weakness Physical Therapy Order: Evaluate and Treat Home Health Nursing Order: Medical education Signs/symptoms of disease process Diabetic education CHF education Medication education-adverse effect Nursing assessment with vital signs I have seen patient Helene Sanchez on 10/06/17. My clinical findings support the need for the requested home health care services because: Ltd mobility - disease progression Patient has SOB I certify that my clinical findings support that this patient is homebound because: Post-op weakness Hx COPD- exertion dyspnea/weakness Sailaja Hoffmann MD Oct 06, 2017 14:45
--- NOTE | 2017-10-06 15:14 | PD.CARD.PN ---
Subjective Subjective Remarks No events overnight No chest pain SOB better Urinating well Edema better Objective Medications Current Medications Medications (Trade) Dose Ordered Sig/Briana Route Start Time Stop Time Status Last Admin (NS Flush) 2 ml UNSCH PRN IV FLUSH 10/04/17 04:30 (NS Flush) 2 ml BID IV FLUSH 10/04/17 09:00 10/06/17 09:17 (Zofran Inj) 4 mg Q6H PRN IVP 10/04/17 04:30 (Heparin Inj) 5,000 units Q12H SQ 10/04/17 09:00 10/06/17 09:25 (Larisa-Colace) 1 tab BID PO 10/04/17 09:00 10/05/17 22:04 (Milk Of Magnesia Liq) 30 ml Q12H PRN PO 10/04/17 04:30 (Senokot) 17.2 mg Q12H PRN PO 10/04/17 04:30 (Dulcolax Supp) 10 mg DAILY PRN RECTAL 10/04/17 04:30 (Lactulose Liq) 30 ml DAILY PRN PO 10/04/17 04:30 (Aspirin Chew) 81 mg DAILY CHEW 10/04/17 09:00 10/06/17 09:17 (Coreg) 3.125 mg Q12HR PO 10/04/17 09:00 10/06/17 09:18 (Plavix) 75 mg DAILY PO 10/04/17 09:00 10/06/17 09:18 (Spiriva Inh) 18 mcg DAILY INH 10/04/17 09:00 10/06/17 09:17 (Duoneb Neb) 1 ampule Q4HR NEB PRN NEB 10/04/17 04:45 10/05/17 07:35 (D50w (Vial) Inj) 50 ml UNSCH PRN IV PUSH 10/04/17 15:45 (Glucagon Inj) 1 mg UNSCH PRN OTHER 10/04/17 15:45 (NovoLOG SUPPLEMENTAL SCALE) 1 ACHS SLIDING SCALE SQ 10/04/17 17:00 10/06/17 13:54 (Zaroxolyn) 5 mg DAILY PO 10/05/17 09:00 10/06/17 09:18 (Lasix) 80 mg DAILY PO 10/07/17 09:00 Vital Signs / I&O Vital Signs Date Time Temp Pulse Resp B/P (MAP) Pulse Ox O2 Delivery O2 Flow Rate FiO2 10/06/17 12:08 97.3 80 18 142/61 (88) 92 10/06/17 09:27 Nasal Cannula 2.00 10/06/17 08:51 97.5 83 20 151/70 (97) 95 10/06/17 07:15 80 10/06/17 05:16 97.9 83 16 148/68 (94) 95 10/05/17 23:23 98.1 87 20 143/63 (89) 97 10/05/17 19:30 Nasal Cannula 2.00 10/05/17 19:17 97.4 84 16 153/66 (95) 100 10/05/17 19:00 96 Nasal Cannula 2.00 10/05/17 17:33 97.5 80 18 138/61 (86) 100 10/05/17 16:30 75 I/O 10/05/17 10/05/17 10/05/17 10/06/17 10/06/17 10/06/17 07:00 15:00 23:00 07:00 15:00 23:00 Intake Total 200 ml 620 ml 240 ml 480 ml Output Total 870 ml 1200 ml 1350 ml Balance -670 ml -580 ml -1110 ml 480 ml Intake Oral 200 ml 620 ml 240 ml 480 ml Output Urine Total 870 ml 1200 ml 1350 ml # Bowel Movements 0 1 1 Physical Exam GENERAL: NAD, AAOx3 SKIN: Warm and dry. HEAD: Atraumatic. Normocephalic. EYES: Pupils equal and round. No scleral icterus. No injection or drainage. ENT: No nasal bleeding or discharge. Mucous membranes pink and moist. NECK: Trachea midline. No JVD. CARDIOVASCULAR: Regular rate and rhythm. RESPIRATORY: No accessory muscle use. Clear to auscultation. Breath sounds equal bilaterally. GASTROINTESTINAL: Abdomen soft, non-tender, nondistended. Hepatic and splenic margins not palpable. MUSCULOSKELETAL: Trace edema NEUROLOGICAL: Awake and alert. No obvious cranial nerve deficits. Motor grossly within normal limits. Five out of 5 muscle strength in the arms and legs. Normal speech. PSYCHIATRIC: Appropriate mood and affect; insight and judgment normal. Laboratory Laboratory Tests Test 10/06/17 06:29 White Blood Count 5.4 TH/MM3 Red Blood Count 3.60 MIL/MM3 Hemoglobin 9.7 GM/DL Hematocrit 30.7 % Mean Corpuscular Volume 85.1 FL Mean Corpuscular Hemoglobin 26.8 PG Mean Corpuscular Hemoglobin Concent 31.5 % Red Cell Distribution Width 18.6 % Platelet Count 172 TH/MM3 Mean Platelet Volume 9.1 FL Neutrophils (%) (Auto) 70.3 % Lymphocytes (%) (Auto) 19.8 % Monocytes (%) (Auto) 8.2 % Eosinophils (%) (Auto) 1.0 % Basophils (%) (Auto) 0.7 % Neutrophils # (Auto) 3.8 TH/MM3 Lymphocytes # (Auto) 1.1 TH/MM3 Monocytes # (Auto) 0.4 TH/MM3 Eosinophils # (Auto) 0.1 TH/MM3 Basophils # (Auto) 0.0 TH/MM3 CBC Comment DIFF FINAL Differential Comment Blood Urea Nitrogen 45 MG/DL Creatinine 2.17 MG/DL Random Glucose 113 MG/DL Albumin 2.9 GM/DL Calcium Level 9.1 MG/DL Phosphorus Level 3.6 MG/DL Sodium Level 138 MEQ/L Potassium Level 4.3 MEQ/L Chloride Level 99 MEQ/L Carbon Dioxide Level 33.5 MEQ/L Anion Gap 6 MEQ/L Estimat Glomerular Filtration Rate 22 ML/MIN Assessment and Plan Problem List: (1) CHF (congestive heart failure) ICD Codes: I50.9 - Heart failure, unspecified Status: Acute (2) Edema of lower extremity ICD Codes: R60.0 - Localized edema (3) Chronic kidney disease ICD Codes: N18.9 - Chronic kidney disease, unspecified Status: Chronic (4) Restrictive lung disease ICD Codes: J98.4 - Other disorders of lung (5) CAD (coronary artery disease) ICD Codes: I25.10 - Atherosclerotic heart disease of [place] coronary artery without angina pectoris Status: Chronic (6) Insulin dependent diabetes mellitus ICD Codes: E11.9 - Type 2 diabetes mellitus without complications; 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
[2017-10-07] MEDS ORDERED: FUROSEMIDE 80 MG TAB PO SCH (09:00)
== END 2017-10-06 16:41 | disposition home health service (06) | DRG 291 ==
LOC: NEPC 22:47 → NEDA 10-04 04:20 → NEPHCDU 10-04 05:47 → OBSVTOIN 10-04 13:58
PROVIDERS: ADMIT Hospitalist; ATTEND Hospitalist
DX: I13.0 Hypertensive heart and chronic kidney disease with heart failure and stage 1 through stage 4 chronic kidney disease, or unspecified chronic kidney disease (principal); I50.23 Acute on chronic systolic (congestive) heart failure; N17.9 Acute kidney failure, unspecified; J96.10 Chronic respiratory failure, unspecified whether with hypoxia or hypercapnia; E11.22 Type 2 diabetes mellitus with diabetic chronic kidney disease; I27.20 Pulmonary hypertension, unspecified; J44.9 Chronic obstructive pulmonary disease, unspecified; E78.5 Hyperlipidemia, unspecified; I25.10 Atherosclerotic heart disease of native coronary artery without angina pectoris; Z89.411 Acquired absence of right great toe; D64.9 Anemia, unspecified; Z95.1 Presence of aortocoronary bypass graft; Z79.4 Long term (current) use of insulin; Z87.891 Personal history of nicotine dependence; N18.9 Chronic kidney disease, unspecified
CPT/HCPCS: 71045; 78582; 80048; 80053; 80069; 81001; 82550; 82948; 83735; 83880; 84484; 85025; 85379; 85610; 85730; 93005; 93970; 94150; 94640; 94664; 96374; 96376; A9540; A9567; J1644; J1650; J1815; J1940; Q4081

== ENCOUNTER 2018-02-14 20:44 | Inpatient (IN) ==
[2018-02-14 21:59] LABS: Hematocrit 26.3 % (35.0-46.0); Hemoglobin 8.2 gm/dL (11.6-15.3); Mean Corpuscular HGB Conc 31.2 % (32.0-36.0); Mean Corpuscular Hemoglobin 27.9 pg (27.0-34.0); Mean Corpuscular Volume 89.4 fL (80.0-100.0); Mean Platelet Volume 8.6 fL (7.0-11.0); Platelet Count 319 th/mm3 (150-450); Red Blood Count 2.94 mil/mm3 (4.00-5.30); Red Cell Distribution Width 20.1 % (11.6-17.2); White Blood Count 5.6 th/mm3 (4.0-11.0)
[2018-02-14 22:13] LABS: Albumin 3.1 g/dL (3.4-5.0); Anion Gap 14 meq/L (5-15); Aspartate Aminotransferase 30 U/L (15-37); Blood Urea Nitrogen 73 mg/dL (7-18); Calcium 9.6 mg/dL (8.5-10.1); Carbon Dioxide 25.9 meq/L (21.0-32.0); Chloride 94 meq/L (98-107); Glomerular Filtration Rate 14 mL/min (>89); Glucose,Random 197 mg/dL (74-106); Potassium 3.7 meq/L (3.5-5.1); Sodium 134 meq/L (136-145)
[2018-02-14 22:18] LABS: Alanine Aminotransferase 21 U/L (10-53); Alkaline Phosphatase 198 U/L (45-117); Total Protein 7.6 g/dL (6.4-8.2)
--- NOTE | 2018-02-15 00:24 | ED ---
HPI General Chief Complaint: Shortness of Breath/Dyspnea Stated Complaint: blood transfusion Time Seen by Provider: 02/15/18 00:07 History of Present Illness 72-year-old female presents to the emergency department progressively worsening shortness of breath at rest and with exertion with orthopnea no report of PND some ankle swelling history of renal failure hypertension dyslipidemia diabetes with left brandi-tarsectomy CAD with CABG and CHF. 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 No report of chest pain. Patient is unable to identify exacerbating or alleviating factors. Related Data Home Medications Medication Instructions Recorded Confirmed aspirin 81 mg PO DAILY 02/15/18 02/15/18 cholecalciferol (vitamin D3) 5,000 unit PO DAILY 02/15/18 02/15/18 [Vitamin D3] clopidogrel 75 mg PO DAILY 02/15/18 02/15/18 docusate sodium 100 mg PO DAILY 02/15/18 02/15/18 ferrous gluconate 236 mg PO DAILY 02/15/18 02/15/18 ferrous sulfate 325 mg PO DAILY 02/15/18 02/15/18 furosemide 20 mg PO Q8H PRN 02/15/18 02/15/18 furosemide 40 mg PO DAILY 02/15/18 02/15/18 loratadine 10 mg PO DAILY 02/15/18 02/15/18 metolazone 5 mg PO DAILY 02/15/18 02/15/18 multivitamin 1 tab PO DAILY 02/15/18 02/15/18 pantoprazole 40 mg PO DAILY 02/15/18 02/15/18 rosuvastatin 40 mg PO HS 02/15/18 02/15/18 tiotropium bromide [Spiriva 2 puff INHALATION DAILY 02/15/18 02/15/18 Respimat] vit B comp [id number]-biotin 1 tab PO DAILY 02/15/18 02/15/18 [[facility] [employer]] Allergies Allergy/AdvReac Type Severity Reaction Status Date / Time acetaminophen Allergy Severe Swelling Verified 02/15/18 07:37 [From Tylenol Sinus Severe Congest] codeine Allergy Severe SEVERE Verified 02/15/18 07:36 MOOD SWINGS guaifenesin Allergy Severe Swelling Verified 02/15/18 07:37 [From Tylenol Sinus Severe Congest] iodine Allergy Severe EDEMA Verified 02/15/18 07:36 metformin Allergy Severe N/V Verified 02/15/18 07:36 potassium iodide Allergy Severe EDEMA Verified 02/15/18 07:36 povidone-iodine Allergy Severe EDEMA Verified 02/15/18 07:36 pseudoephedrine Allergy Severe THROAT Verified 02/15/18 07:36 SWELLS sodium iodide Allergy Severe EDEMA Verified 02/15/18 07:36 sodium iodide Allergy Severe EDEMA Verified 02/15/18 07:36 Sulfa (Sulfonamide Allergy Mild Anaphylaxis Verified 02/15/18 07:36 Antibiotics) levofloxacin AdvReac Severe NAUSEA, Verified 02/15/18 07:36 VOMITING, DIZZINESS sulfamethoxazole AdvReac Severe NAUSEA, Verified 02/15/18 07:36 VOMITING, DIZZINESS trimethoprim AdvReac Severe NAUSEA, Verified 02/15/18 07:36 VOMITING, DIZZINESS Review of Systems Except as stated in HPI: all other systems reviewed are negative [facility] Medical History Medical History Anemia (Acute) CHF (congestive heart failure) (Acute) COPD (chronic obstructive pulmonary disease) (Acute) Cardiac LV ejection fraction <20% (Acute) H/O: hysterectomy (Acute) Kidney disease (Acute) Surgical History Surgical History History of cholecystectomy (Acute) S/P CABG x 3 (Acute) Social History Social History Substance History: No History of Abuse Second Hand Smoke Exposure: Yes Smoking Status: Former smoker Tobacco Type: Cigarettes How Often Do You Have a Drink Containing Alcohol: Never Recent Travel in [facility] within the Last 8 Weeks: No Recent Out of Country Travel within the Last 8 Weeks: No Immunization History Tetanus Immunization: Unsure Hx Influenza Vaccine This Season: No Exam Narrative Exam Narrative: GENERAL: Well-nourished, well-developed patient. Ill-appearing female in mild to moderate respiratory distress. SKIN: Focused skin assessment warm/dry. HEAD: Normocephalic. EYES: No scleral icterus. No injection or drainage. NECK: Supple, trachea midline. No JVD or lymphadenopathy. CARDIOVASCULAR: Regular rate and rhythm without murmurs, gallops, or rubs. RESPIRATORY: Breath sounds equal bilaterally. No accessory muscle use. Few left basilar crackles otherwise diminished breath sounds throughout and upper ott are clear to auscultation GASTROINTESTINAL: Abdomen soft, non-tender, nondistended. MUSCULOSKELETAL: No cyanosis, pitting ankle edema. BACK: Nontender without obvious deformity. No CVA tenderness. Course Initial Documented Vital Signs Temperature 98.9 F 02/14/18 21:10 Pulse Rate 86 02/14/18 21:10 Respiratory Rate 26 H 02/14/18 21:10 Blood Pressure 133/63 02/14/18 21:10 Pulse Oximetry 97 02/14/18 21:10 Last Documented Vital Signs Temperature 97.8 F 02/15/18 14:10 Pulse Rate 81 02/15/18 14:10 Respiratory Rate 20 02/15/18 14:10 Blood Pressure 108/77 02/15/18 14:10 Pulse Oximetry 99 02/15/18 13:00 Medical Decision Making MDM Narrative Medical decision making narrative: 72-year-old female presents to the emergency department for worsening shortness of breath with known history of CHF CAD hypertension dyslipidemia diabetes previous CABG and chronic renal failure; placed on equipment monitor phototypesetting with continuous pulse oximetry specimens collected and sent for resulting patient administered Lasix 40 mg IV Nitropaste 1/2 inch to chest wall EKG is sinus rhythm rate 90 nonspecific anterolateral ischemic changes no acute ST elevation poor R-wave progression septally Patient discussed with VADIM SHANNON --OBS Differential Diagnosis Differential Diagnosis: Dyspnea, CHF, ACS, PE, exacerbation COPD Medical Records Medical records reviewed: Yes I reviewed the patient's medical records. Lab Data Result diagrams: 02/14/18 21:31 02/14/18 21:30 Lab Results 02/14/18 02/14/18 02/14/18 Range/Units 21:30 21:30 21:31 WBC 5.6 (4.0-11.0) th/mm3 RBC 2.94 L (4.00-5.30) mil/mm3 Hgb 8.2 L (11.6-15.3) gm/dL Hct 26.3 L (35.0-46.0) % MCV 89.4 (80.0-100.0) fL MCH 27.9 (27.0-34.0) pg MCHC 31.2 L (32.0-36.0) % RDW 20.1 H (11.6-17.2) % Plt Count 319 (150-450) th/mm3 MPV 8.6 (7.0-11.0) fL APTT 24.7 (24.3-30.1) sec Sodium 134 L (136-145) meq/L Potassium 3.7 (3.5-5.1) meq/L Chloride 94 L (98-107) meq/L Carbon Dioxide 25.9 (21.0-32.0) meq/L Anion Gap 14 (5-15) meq/L BUN 73 H (7-18) mg/dL Creatinine 3.34 H (0.50-1.00) mg/dL Estimated GFR 14 L (>89) mL/min POC Glucose (68-110) mg/dl Random Glucose 197 H (74-106) mg/dL Calcium 9.6 (8.5-10.1) mg/dL Magnesium (1.5-2.5) mg/dL Total Bilirubin 1.0 (0.2-1.0) mg/dL AST 30 (15-37) U/L ALT 21 (10-53) U/L Alkaline Phosphatase 198 H (45-117) U/L Total Creatine Kinase (26-192) U/L Troponin I (0.02-0.05) ng/mL B-Natriuretic Peptide (0-100) pg/mL Total Protein 7.6 (6.4-8.2) g/dL Albumin 3.1 L (3.4-5.0) g/dL Urine Color (Yellw/Straw) Urine Clarity (Clear) Urine pH (5.0-8.5) Ur Specific Bridgman (1.002-1.035) Urine Protein (Neg-Trace) mg/dL Urine Glucose (UA) (Negative) mg/dL Urine Ketones (Negative) mg/dL Urine Occult Blood (Negative) Urine Nitrate (Negative) Urine Bilirubin (Negative) Urine Urobilinogen (Less than 2) mg/dL Ur Leukocyte Esterase (Negative) Urine RBC (0-3) /hpf Urine WBC (0-5) /hpf Ur Squamous Epith Cells (0-5) /hpf Ur Transition Epith Cell (None) /hpf Urine Bacteria (None) /hpf Hyaline Casts (0-3) /lpf WBC Casts (None) /lpf Micro UA Comment Urine Culture Comments 02/15/18 02/15/18 02/15/18 Range/Units 00:28 00:28 00:59 WBC (4.0-11.0) th/mm3 RBC (4.00-5.30) mil/mm3 Hgb (11.6-15.3) gm/dL Hct (35.0-46.0) % MCV (80.0-100.0) fL MCH (27.0-34.0) pg MCHC (32.0-36.0) % RDW (11.6-17.2) % Plt Count (150-450) th/mm3 MPV (7.0-11.0) fL APTT (24.3-30.1) sec Sodium (136-145) meq/L Potassium (3.5-5.1) meq/L Chloride (98-107) meq/L Carbon Dioxide (21.0-32.0) meq/L Anion Gap (5-15) meq/L BUN (7-18) mg/dL Creatinine (0.50-1.00) mg/dL Estimated GFR (>89) mL/min POC Glucose 249 H (68-110) mg/dl Random Glucose (74-106) mg/dL Calcium (8.5-10.1) mg/dL Magnesium 3.1 H (1.5-2.5) mg/dL Total Bilirubin (0.2-1.0) mg/dL AST (15-37) U/L ALT (10-53) U/L Alkaline Phosphatase (45-117) U/L Total Creatine Kinase 84 (26-192) U/L Troponin I Less than 0.02 L (0.02-0.05) ng/mL B-Natriuretic Peptide Greater than 5000 H (0-100) pg/mL Total Protein (6.4-8.2) g/dL Albumin (3.4-5.0) g/dL Urine Color (Yellw/Straw) Urine Clarity (Clear) Urine pH (5.0-8.5) Ur Specific Brid[place] (1.002-1.035) Urine Protein (Neg-Trace) mg/dL Urine Glucose (UA) (Negative) mg/dL Urine Ketones (Negative) mg/dL Urine Occult Blood (Negative) Urine Nitrate (Negative) Urine Bilirubin (Negative) Urine Urobilinogen (Less than 2) mg/dL Ur Leukocyte Esterase (Negative) Urine RBC (0-3) /hpf Urine WBC (0-5) /hpf Ur Squamous Epith Cells (0-5) /hpf Ur Transition Epith Cell (None) /hpf Urine Bacteria (None) /hpf Hyaline Casts (0-3) /lpf WBC Casts (None) /lpf Micro UA Comment Urine Culture Comments 02/15/18 Range/Units 02:40 WBC (4.0-11.0) th/mm3 RBC (4.00-5.30) mil/mm3 Hgb (11.6-15.3) gm/dL Hct (35.0-46.0) % MCV (80.0-100.0) fL MCH (27.0-34.0) pg MCHC (32.0-36.0) % RDW (11.6-17.2) % Plt Count (150-450) th/mm3 MPV (7.0-11.0) fL APTT (24.3-30.1) sec Sodium (136-145) meq/L Potassium (3.5-5.1) meq/L Chloride (98-107) meq/L Carbon Dioxide (21.0-32.0) meq/L Anion Gap (5-15) meq/L BUN (7-18) mg/dL Creatinine (0.50-1.00) mg/dL Estimated GFR (>89) mL/min POC Glucose (68-110) mg/dl Random Glucose (74-106) mg/dL Calcium (8.5-10.1) mg/dL Magnesium (1.5-2.5) mg/dL Total Bilirubin (0.2-1.0) mg/dL AST (15-37) U/L ALT (10-53) U/L Alkaline Phosphatase (45-117) U/L Total Creatine Kinase (26-192) U/L Troponin I (0.02-0.05) ng/mL B-Natriuretic Peptide (0-100) pg/mL Total Protein (6.4-8.2) g/dL Albumin (3.4-5.0) g/dL Urine Color Yellow (Yellw/Straw) Urine Clarity Hazy H (Clear) Urine pH 5.0 (5.0-8.5) Ur Specific Bridgman 1.013 (1.002-1.035) Urine Protein 500 or greater (Neg-Trace) mg/dL Urine Glucose (UA) 50 (Negative) mg/dL Urine Ketones Negative (Negative) mg/dL Urine Occult Blood Negative (Negative) Urine Nitrate Negative (Negative) Urine Bilirubin Negative (Negative) Urine Urobilinogen Less than 2 (Less than 2) mg/dL Ur Leukocyte Esterase Small H (Negative) Urine RBC 2 (0-3) /hpf Urine WBC 28 H (0-5) /hpf Ur Squamous Epith Cells 1 (0-5) /hpf Ur Transition Epith Cell 2 (None) /hpf Urine Bacteria Rare H (None) /hpf Hyaline Casts 4 (0-3) /lpf WBC Casts 1 (None) /lpf Micro UA Comment Culture indicated Urine Culture Comments Culture indicated Imaging Data Radiologist's impression: ITS Impressions Chest X-Ray 02/15/18 00:17 CONCLUSION: 1. Small bilateral pleural effusions with associated lower lobe airspace disease, slightly progressed on the right from prior exam. Discharge Plan Discharge Disposition Patient Disposition: 30 Still Patient Discharge Condition Condition: Stable Discharge Details Diagnosis: Dyspnea, H/O CHF, History of COPD Physicians Team ED Provider: Zoila Raymond Primary Care Provider: UNKNOWN, Attending Provider: Olman Rodriguez Other Providers: Yuriy Mckeon Discharge Interventions Interventions: ED Discharge Assessment Last Done: 02/15/18 14:10 Status ED Status: Left Department Discharge Information Discharge Date/Time: 02/15/18 14:10
--- NOTE | 2018-02-15 00:54 | XR ---
EXAM DATE: 02/15/2018 12:48 AM EDT AGE/SEX: 72 years / Female INDICATIONS: Short of breath, chest pain. CLINICAL DATA: This is the patient's initial encounter. Patient reports that signs and symptoms have been present for 1 day and indicates a pain score of 4/10. MEDICAL/SURGICAL HISTORY: Renal failure, acute. Diabetes mellitus type II. Hypertension. SOFTWARE [employer]ES D. CABG. COMPARISON: [facility] – [place], 10/03/2017. . FINDINGS: Small bilateral pleural effusions with associated airspace disease in the lower lobes minimally progr essed on the right. Cardiomegaly mediastinal contours are stable. Postsurgical features of prior medi an sternotomy. Remainder of the exam is unchanged. CONCLUSION: 1. Small bilateral pleural effusions with associated lower lobe airspace disease, slightly progresse d on the right from prior exam. Electronically signed by: León Chairez MD 02/15/2018 12:52 AM EDT
[2018-02-15 01:17] LABS: Creatine Kinase 84 U/L (26-192)
[2018-02-15 01:19] LABS: Magnesium 3.1 mg/dL (1.5-2.5)
[2018-02-15 03:02] LABS: Bacteria,Urine Rare /hpf; Bilirubin,Urine Negative (Negative); Clarity,Urine Hazy (Clear); Color,Urine Yellow (Yellw/Straw); Glucose,Urine (UA) 50 mg/dL (Negative); Hyaline Casts,Urine 4 /lpf (0-3); Leukocyte Esterase,Urine Small (Negative); Nitrite,Urine Negative (Negative); Specific Gravity,Urine 1.013 (1.002-1.035); Squamous Epithelial Cell,Urine 1 /hpf (0-5); Transitional Epi Cells,Urine 2 /hpf
[2018-02-15] MEDS ORDERED: Bisacodyl 10 MG Supp RECTAL PRN (03:13)
[2018-02-15] MEDS ORDERED: Temazepam 15 MG Capsule PO PRN (03:13)
[2018-02-15] MEDS: Heparin - SQ 10,000 UNITS/ML Vial SQ SCH ×2 (04:19→17:26)
[2018-02-15] MEDS: Senna/Docusate Sodium 8.6/50 MG Tablet PO SCH ×2 (09:06→23:10)
--- NOTE | 2018-02-15 17:10 | P.HP ---
History of Present Illness Service: [facility] hospitalist service Primary Care Physician: UNKNOWN Chief Complaint: Shortness of breath History of Present Illness: Patient is a 72-year-old female who lives with her significant other, baseline gets around without walker and uses a scooter for long walks, baseline easily gets short of breath, on home O2 2 L nasal cannula, history of anemia of chronic disease, chronic kidney disease followed by Dr. Cano, cardiomyopathy, CAD who presented to the ER complaining of shortness of breath which started about 3-4 days ago. Patient states compliance with medications and diet. Last evening worsening shortness of breath which prompted consult to ER and on evaluation was noted to be in heart failure. Patient was given diuretics with improvement of symptoms. Patient is now awake alert talking. But as stated have been having worsening shortness of breath with easy fatigability. Based baseline with 2-3 pillow orthopnea. Patient however denies any leg swelling. States still voiding very well. Patient complains of cough which is nonproductive, denies any chest pains. Denies any melena or hematochezia Patient also states history of diabetes type 2 at one point was on insulin however with likely worsening renal function states has not been taking any insulin or medications and has been diet controlled. Inpatient Certification: I certify that the inpatient services were ordered in accordance with Medicare regulations governing the order. This includes certification that hospital inpatient services are reasonable and necessary and in the case of services not specified as inpatient-only under 42 CFR 419.22(n), that they are appropriately provided as inpatient services in accordance to with the 2-midnight benchmark under 43 CFR 412.3(e) Estimated Total Length of Stay (Days): 2 Plans for Post Hospital Care: Not yet determined Review of Systems Constitutional: Reports anorexia, Reports lack of energy, Reports weight loss Eyes: Denies blind spots, Denies blurry vision, Denies bulging eyes, Denies change in vision, Denies double vision, Denies discharge, Denies dry eyes, Denies floaters, Denies irritation, Denies itchy eyes, Denies loss of vision, Denies pain, Denies requires corrective lenses, Denies sensitivity to light, Denies other Ears, Nose, Mouth, and Throat: Denies abnormal hearing, Denies bleeding gums, Denies bad breath, Denies change in voice, Denies dental pain, Denies difficulty swallowing, Denies dizziness, Denies dry mouth, Denies ear discharge , Denies ear pain, Denies facial pain, Denies headache(s), Denies hearing loss, Denies hoarseness, Denies lip swelling, Denies nosebleed, Denies mouth lesions, Denies mouth pain, Denies nasal congestion, Denies nasal discharge, Denies nasal obstruction, Denies nasal trauma, Denies neck lump, Denies neck pain, Denies nose pain, Denies pain with swallowing, Denies poor balance, Denies post nasal drip, Denies ringing in the ears, Denies sinus pain, Denies sinus pressure , Denies sore throat, Denies throat swelling, Denies tongue swelling, Denies other Cardiovascular: Reports shortness of breath Respiratory: Reports cough Gastrointestinal: Denies abdominal pain, Denies belching, Denies black, tarry stools, Denies bloating, Denies bright, red blood in stools, Denies change in bowel habits, Denies constant urge to pass stool, Denies change in stools, Denies coffee ground vomit, Denies constipation, Denies cramping, Denies difficulty swallowing, Denies excessive passing of gas, Denies feeling full early, Denies heartburn, Denies incontinent of stools, Denies loose stools, Denies nausea, Denies pain with swallowing, Denies vomiting, Denies vomiting blood, Denies other Genitourinary: Denies abnormal periods, Denies abnormal vaginal bleeding, Denies absent period, Denies bleeding between periods, Denies blood in urine, Denies difficulty starting urination, Denies difficulty urinating, Denies dribbling after urination, Denies frequent nighttime urination, Denies genital itching, Denies genital lesions, Denies heavy periods, Denies hot flashes, Denies light periods, Denies nipple discharge, Denies painful intercourse, Denies painful periods, Denies painful urination, Denies pelvic pain, Denies prolapse symptoms, Denies sexual problems, Denies side pain, Denies urinary incontinence, Denies urinary urgency, Denies vaginal discharge, Denies vaginal dryness, Denies vaginal odor, Denies vaginal itching, Denies other Musculoskeletal: Denies abnormal walking, Denies back pain, Denies body aches, Denies decreased muscle mass, Denies deformity, Denies joint pain, Denies joint swelling, Denies limited joint movement, Denies loss of height, Denies muscle cramps, Denies muscle weakness, Denies neck pain, Denies numbness, Denies radiating pain into limb, Denies stiffness, Denies tingling, Denies other Skin/Breast: Denies acne, Denies bleeding lesions, Denies boil, Denies breast swelling, Denies breast skin changes, Denies breast pain, Denies breast lump, Denies change in breast shape, Denies change in hair, Denies change in skin color, Denies changing lesions, Denies dry skin, Denies excessive hair growth, Denies hair loss, Denies itching, Denies lesions, Denies nail changes, Denies new lesions, Denies nipple discharge, Denies non-healing lesions, Denies redness , Denies sensitivity to light, Denies rash, Denies skin pain, Denies skin ulcer , Denies sores, Denies stretch crespo, Denies unusual bruising, Denies wounds, Denies yellowing of the skin, Denies other Neurologic: Denies abnormal hearing, Denies abnormal movements, Denies abnormal speech, Denies abnormal walking, Denies behavioral changes, Denies burning sensations, Denies confusion, Denies dizziness, Denies fainting, Denies frequent falls, Denies headache(s), Denies lack of coordination, Denies localized weakness, Denies loss of vision, Denies memory loss, Denies numbness, Denies other visual disturbances, Denies radiating pain, Denies restless legs, Denies convulsions, Denies seizure-like activity, Denies sensory deficit, Denies tingling, Denies tingling/numbness/burning sensations, Denies tremor(s), Denies unsteadiness, Denies weakness, Denies other Psychiatric: Denies abnormal sleep pattern, Denies anxiety, Denies behavioral changes, Denies change in appetite, Denies change in sex drive, Denies confusion , Denies depression, Denies difficulty concentrating, Denies hearing things others do not hear, Denies hopelessness, Denies irritability, Denies lack of enjoyment, Denies memory loss, Denies mood swings, Denies panic attacks, Denies paranoia, Denies seeing things others do not see, Denies sensing things others do not sense, Denies tactile hallucinations, Denies thoughts of hurting/killing others, Denies thoughts of hurting/killing yourself, Denies other Endocrine: Denies cold intolerance, Denies excessive sweating, Denies flushing, Denies heat intolerance, Denies increased hunger, Denies increased thirst, Denies increased urination, Denies rapid, pounding, or irregular heartbeat, Denies other Hematologic/Lymphatic: Denies easy bleeding, Denies easy bruising, Denies enlarged lymph nodes, Denies other PMFSH - History History Provided By: Patient - Medical History Medical History: Medical History (Last Updated 02/14/18 @ 21:15 by Warren Mackenzie RN) Anemia CHF (congestive heart failure) COPD (chronic obstructive pulmonary disease) Cardiac LV ejection fraction <20% H/O: hysterectomy Kidney disease - Surgical History Surgical History: Surgical History (Last Updated 02/14/18 @ 21:15 by Warren Mackenzie RN) History of cholecystectomy S/P CABG x 3 - Tobacco History Second Hand Smoke Exposure: No Tobacco Use In Past 30 Days: No Smoking Status: Former smoker - Alcohol History How Often Do You Have a Drink Containing Alcohol: Never - Substance Use History Substance History: No History of Abuse - Travel History Recent Travel in the [place] Within the Last 8 Weeks: No Recent Travel Out of the Country Within the Last 8 Weeks: No - Immunization History Tetanus Immunization: Unsure Hx Influenza Vaccine This Season: No Medications and Allergies Active Medications: Active Medications Acetaminophen (Tylenol) 650 mg PO Q4H PRN PRN Reason: Temp > 100.4 Al Hydroxide/Mg Hydroxide (Milk Of Magnsheng Liq) 30 ml PO Q12H PRN PRN Reason: Mild Constipation Aspirin (Aspirin Chew) 81 mg PO DAILY [facility] Last Admin: 02/15/18 09:14 Dose: 81 mg Bisacodyl (Dulcolax Supp) 10 mg RECTAL DAILY PRN PRN Reason: SEVERE CONSITIPATION Bumetanide (Bumex Inj) 1 mg IV.PUSH BID@0900,1800 [facility] Last Admin: 02/15/18 09:05 Dose: 1 mg Clopidogrel Bisulfate (Plavix) 75 mg PO DAILY [facility] Last Admin: 02/15/18 09:05 Dose: 75 mg Heparin Sodium (Porcine) (Heparin Inj) 5,000 units SQ Q12H [facility] Last Admin: 02/15/18 04:19 Dose: 5,000 units Ceftriaxone Sodium 1,000 mg/ (Sodium Chloride) 100 mls @ 200 mls/hr IV.SIG Q24H [facility] Last Admin: 02/15/18 04:19 Dose: 200 mls/hr Lactulose (Lactulose Liq) 30 ml PO DAILY PRN PRN Reason: SEVERE CONSITIPATION Non-Formulary Medication (Rosuvastatin [Rosuvastatin]) 40 mg PO HS [facility] Non-Formulary Medication (Tiotropium Brohard [Spiriva Respimat]) 2 puff INHALATION DAILY [facility] Last Admin: 02/15/18 09:14 Dose: Not Given Ondansetron HCl (Zofran Inj) 4 mg IV.PUSH Q6H PRN PRN Reason: NAUSEA OR VOMITING Pantoprazole Sodium (Protonix) 40 mg PO DAILY [facility] Last Admin: 02/15/18 09:03 Dose: 40 mg Senna/Docusate Sodium (Larisa-Colace) 1 tab PO BID [facility] Last Admin: 02/15/18 09:06 Dose: 1 tab Sennosides (Senokot) 17.2 mg PO Q12H PRN PRN Reason: Moderate Constipation Temazepam (Restoril) 15 mg PO HS PRN PRN Reason: INSOMNIA Allergies Allergy/AdvReac Type Severity Reaction Status Date / Time acetaminophen Allergy Severe Swelling Verified 02/15/18 07:37 [From Tylenol Sinus Severe Congest] codeine Allergy Severe SEVERE Verified 02/15/18 07:36 MOOD SWINGS guaifenesin Allergy Severe Swelling Verified 02/15/18 07:37 [From Tylenol Sinus Severe Congest] iodine Allergy Severe EDEMA Verified 02/15/18 07:36 metformin Allergy Severe N/V Verified 02/15/18 07:36 potassium iodide Allergy Severe EDEMA Verified 02/15/18 07:36 povidone-iodine Allergy Severe EDEMA Verified 02/15/18 07:36 pseudoephedrine Allergy Severe THROAT Verified 02/15/18 07:36 SWELLS sodium iodide Allergy Severe EDEMA Verified 02/15/18 07:36 sodium iodide Allergy Severe EDEMA Verified 02/15/18 07:36 Sulfa (Sulfonamide Allergy Mild Anaphylaxis Verified 02/15/18 07:36 Antibiotics) levofloxacin AdvReac Severe NAUSEA, Verified 02/15/18 07:36 VOMITING, DIZZINESS sulfamethoxazole AdvReac Severe NAUSEA, Verified 02/15/18 07:36 VOMITING, DIZZINESS trimethoprim AdvReac Severe NAUSEA, Verified 02/15/18 07:36 VOMITING, DIZZINESS Home Medications Medication Instructions Recorded Confirmed Type aspirin 81 mg PO DAILY 02/15/18 02/15/18 History cholecalciferol (vitamin D3) 5,000 unit PO DAILY 02/15/18 02/15/18 History [Vitamin D3] clopidogrel 75 mg PO DAILY 02/15/18 02/15/18 History docusate sodium 100 mg PO DAILY 02/15/18 02/15/18 History ferrous gluconate 236 mg PO DAILY 02/15/18 02/15/18 History ferrous sulfate 325 mg PO DAILY 02/15/18 02/15/18 History furosemide 20 mg PO Q8H PRN 02/15/18 02/15/18 History furosemide 40 mg PO DAILY 02/15/18 02/15/18 History loratadine 10 mg PO DAILY 02/15/18 02/15/18 History metolazone 5 mg PO DAILY 02/15/18 02/15/18 History multivitamin 1 tab PO DAILY 02/15/18 02/15/18 History pantoprazole 40 mg PO DAILY 02/15/18 02/15/18 History rosuvastatin 40 mg PO HS 02/15/18 02/15/18 History tiotropium bromide [Spiriva 2 puff INHALATION DAILY 02/15/18 02/15/18 History Respimat] vit B comp [id number] 1 tab PO DAILY 02/15/18 02/15/18 History [[employer]-[facility]] Exam Vital signs: Vital Signs 02/14/18 21:10 02/15/18 00:04 02/15/18 00:43 Temperature 98.9 F Pulse Rate 86 89 Respiratory Rate 26 H 26 H Blood Pressure 133/63 151/69 H Pulse Oximetry 97 99 97 02/15/18 01:02 02/15/18 02:00 02/15/18 03:00 Temperature Pulse Rate 89 87 87 Respiratory Rate 16 18 16 Blood Pressure 151/69 H 142/67 H 165/70 H Pulse Oximetry 99 100 100 02/15/18 05:53 02/15/18 07:00 02/15/18 09:00 Temperature 97.8 F 97.9 F Pulse Rate 82 80 81 Respiratory Rate 16 20 20 Blood Pressure 173/85 H 139/66 116/60 Pulse Oximetry 99 99 02/15/18 10:00 02/15/18 11:00 02/15/18 13:00 Temperature 97.9 F 97.9 F Pulse Rate 81 82 Respiratory Rate 16 20 20 Blood Pressure 118/77 124/68 Pulse Oximetry 99 99 02/15/18 14:10 Temperature 97.8 F Pulse Rate 81 Respiratory Rate 20 Blood Pressure 108/77 Pulse Oximetry Intake & Output 02/14/18 02/15/18 02/15/18 18:59 06:59 18:59 Output Total 400 / 400 Balance -400 / -400 Weight 54.431 kg Output: Urine 400 / 400 Other: # Voids 1 - Constitutional no acute distress - Routine HEENT Exam Head: Present: normocephalic Eye: Present: EOMI, PERRL ENT: Present: mucous membranes moist - Routine Neck Exam Present: supple - Routine Respiratory Exam Present: decreased breath sounds, rales (Minimal basilar rales on the left) Comments: Minimal basal rales on the left - Routine Cardiovascular Exam Present: RRR - Routine Abdominal Exam Present: soft - Routine Extremities Exam Comments: No leg swelling no calf tenderness good peripheral pulses - Routine Skin Exam Present: intact - Routine Neurological Exam Present: alert, oriented X3, CN II-XII intact Intact sensory grossly no motor deficit Results - Labs CBC & Chem 7: 02/16/18 06:22 02/20/18 04:05 Labs: Laboratory Results - last 24 hr 02/14/18 02/14/18 02/14/18 21:30 21:30 21:31 WBC 5.6 RBC 2.94 L Hgb 8.2 L Hct 26.3 L MCV 89.4 MCH 27.9 MCHC 31.2 L RDW 20.1 H Plt Count 319 MPV 8.6 APTT 24.7 Sodium 134 L Potassium 3.7 Chloride 94 L Carbon Dioxide 25.9 Anion Gap 14 BUN 73 H Creatinine 3.34 H Estimated GFR 14 L POC Glucose Random Glucose 197 H Calcium 9.6 Magnesium Total Bilirubin 1.0 AST 30 ALT 21 Alkaline Phosphatase 198 H Total Creatine Kinase Troponin I B-Natriuretic Peptide Total Protein 7.6 Albumin 3.1 L Urine Color Urine Clarity Urine pH Ur Specific [place] Urine Protein Urine Glucose (UA) Urine Ketones Urine Occult Blood Urine Nitrate Urine Bilirubin Urine Urobilinogen Ur Leukocyte Esterase Urine RBC Urine WBC Ur Squamous Epith Cells Ur Transition Epith Cell Urine Bacteria Hyaline Casts WBC Casts Micro UA Comment Urine Culture Comments 02/15/18 02/15/18 02/15/18 00:28 00:28 00:59 WBC RBC Hgb Hct MCV MCH MCHC RDW Plt Count MPV APTT Sodium Potassium Chloride Carbon Dioxide Anion Gap BUN Creatinine Estimated GFR POC Glucose 249 H Random Glucose Calcium Magnesium 3.1 H Total Bilirubin AST ALT Alkaline Phosphatase Total Creatine Kinase 84 Troponin I Less than 0.02 L B-Natriuretic Peptide Greater than 5000 H Total Protein Albumin Urine Color Urine Clarity Urine pH Ur Specific [place] Urine Protein Urine Glucose (UA) Urine Ketones Urine Occult Blood Urine Nitrate Urine Bilirubin Urine Urobilinogen Ur Leukocyte Esterase Urine RBC Urine WBC Ur Squamous Epith Cells Ur Transition Epith Cell Urine Bacteria Hyaline Casts WBC Casts Micro UA Comment Urine Culture Comments 02/15/18 02:40 WBC RBC Hgb Hct MCV MCH MCHC RDW Plt Count MPV APTT Sodium Potassium Chloride Carbon Dioxide Anion Gap BUN Creatinine Estimated GFR POC Glucose Random Glucose Calcium Magnesium Total Bilirubin AST ALT Alkaline Phosphatase Total Creatine Kinase Troponin I B-Natriuretic Peptide Total Protein Albumin Urine Color Yellow Urine Clarity Hazy H Urine pH 5.0 Ur Specific [place] 1.013 Urine Protein 500 or greater Urine Glucose (UA) 50 Urine Ketones Negative Urine Occult Blood Negative Urine Nitrate Negative Urine Bilirubin Negative Urine Urobilinogen Less than 2 Ur Leukocyte Esterase Small H Urine RBC 2 Urine WBC 28 H Ur Squamous Epith Cells 1 Ur Transition Epith Cell 2 Urine Bacteria Rare H Hyaline Casts 4 WBC Casts 1 Micro UA Comment Culture indicated Urine Culture Comments Culture indicated - Imaging Impressions Chest X-Ray 02/15/18 00:17 CONCLUSION: 1. Small bilateral pleural effusions with associated lower lobe airspace disease, slightly progressed on the right from prior exam. Caprini VTE Risk Assessment Caprini VTE Risk Assessment: Moderate/High Risk (score >= 2) Caprini Risk Assessment Model: Point Value = 1 Point Value = 2 Point Value = 3 Point Value = 5 Age 41-60 Minor surgery BMI > 25 kg/m2 Swollen legs Varicose veins or History of unexplained or recurrent spontaneous Oral contraceptives or hormone replacement Sepsis (< 1 month) Serious lung disease, including pneumonia (< 1 month) Abnormal pulmonary function Acute myocardial infarction Congestive heart failure (< 1 month) History of inflammatory bowel disease Medical patient at bed rest Age 61-74 Arthroscopic surgery Major open surgery (> 45 min) Laparoscopic surgery (> 45 min) Malignancy Confined to bed (> 72 hours) Immobilizing plaster cast Central venous access Age >= 75 History of VTE Family history of VTE Factor V Leiden Prothrombin [id number] Lupus anticoagulant Anticardiolipin antibodies Elevated serum homocysteine Heparin-induced thrombocytopenia Other congenital or acquired thrombophilia Stroke (< 1 month) Elective arthroplasty Hip, pelvis, or leg fracture Acute spinal cord injury (< 1 month) Prophylaxis Regimen: Total Risk Factor Score Risk Level Prophylaxis Regimen 0-1 Low Early ambulation 2 Moderate Order ONE of the following: *Sequential Compression Device (SCD) *Heparin 5000 units SQ BID 3-4 Higher Order ONE of the following medications: *Heparin 5000 units SQ TID *Enoxaparin/Lovenox 40 mg SQ daily (WT < 150 kg, CrCl > 30 mL/min) *Enoxaparin/Lovenox 30 mg SQ daily (WT < 150 kg, CrCl > 10-29 mL/min) *Enoxaparin/Lovenox 30 mg SQ BID (WT < 150 kg, CrCl > 30 mL/min) AND/OR *Sequential Compression Device (SCD) 5 or more Highest Order ONE of the following medications: *Heparin 5000 units SQ TID (Preferred with Epidurals) *Enoxaparin/Lovenox 40 mg SQ daily (WT < 150 kg, CrCl > 30 mL/min) *Enoxaparin/Lovenox 30 mg SQ daily (WT < 150 kg, CrCl > 10-29 mL/min) *Enoxaparin/Lovenox 30 mg SQ BID (WT < 150 kg, CrCl > 30 mL/min) AND *Sequential Compression Device (SCD) Assessment and Plan - Plan 72-year-old female with known history of CAD status post cath sometime in 2017 with 100% occluded LAD, history of DANICA in November 2016, cardiomyopathy last ejection fraction on review was 25-30%, admitted for worsening shortness of breath. Worsening renal functions Acute CHF exacerbation with cardiomyopathy with known ejection fraction of 35-30 % History of CAD status post CABG status post DANICA-LAD -Continue on home oxygen -Patient received diuresis now and is doing very well. Continue on Bumex with close monitoring of renal functions - Continue on cardiac meds-aspirin, Plavix - will add Coreg to her regimen - cough likely related to CHF- no fever, no sputum, no leukocytosis. 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 Cano - for worsening renal functions - Cancel consult to Dr. Toledo COPD- 02 dependent - continue home MDI- Tabitha UTI- UA with pyuria - continue on rocephin- ff c and S Anemia of chronic kidney disease. -Continue on iron supplements - Per patient was supposed to be on Epogen however states that this was too expensive and can't afford it. Diabetes type 2 now controlled per patient off medications. - will ff blood sugars and monitor Hyperlipidemia. Continue on statins Heparin subcu for DVT prophylaxis Activity- out of bed to chair tomorrow .
--- NOTE | 2018-02-15 17:14 | ECG ---
Date Performed: 02/15/2018 Time Performed: 00:14:57 PTAGE: 72 years EKG: Sinus rhythm LOW QRS VOLTAGE IN PRECORDIAL LEADS ST DEVIATION AND MODERATE T-WAVE ABNORMALITY, CONSIDER LATERAL I SCHEMIA ST DEVIATION AND MODERATE T-WAVE ABNORMALITY, CONSIDER INFERIOR ISCHEMIA ABNORMAL ECG PREVIOUS TRACING 10/03/17 @ 23.30.59 Since the previous tracing, no significant change noted DOCTOR: Luis Fernando Holloway Interpretating Date/Time 02/15/2018 17:13:38
[2018-02-15] MEDS ORDERED: Epoetin Alfa Inj 20,000 UNIT/ML Vial SQ ONE (18:59)
--- NOTE | 2018-02-15 19:43 | MB ---
cc: Yuriy Mckeon MD, Abdul Q MD DATE: 02/15/2018 REASON FOR CONSULTATION: Chronic kidney disease with acute kidney injury. HISTORY OF PRESENT ILLNESS: This is a 72-year-old female with past medical history of hypertension, chronic kidney disease, congestive heart failure, chronic obstructive pulmonary disease who came to the hospital with complaint of worsening shortness of breath. I was called to see the patient regarding chronic kidney disease. The patient has known history of chronic kidney disease. She was admitted here in 09/2017 and at that time her kidney function got worse and she was started on dialysis. She was on dialysis for a week or 10 days and then her kidney function improved and she was taken off dialysis. The last creatinine we have was 2.1-2.2. This was in September. She has been followed with . Now patient came with a creatinine of 3.3. She has noticed that she has worsening shortness of breath. She was taking her diuretic at home, which is furosemide 40 mg once a day. She has a cough which is mainly dry. There is no chest pain. No palpitation. She has occasional nausea. There is no vomiting. She did not have any dysuria, hematuria. Denies taking any nonsteroidal anti-inflammatory drugs. PAST MEDICAL HISTORY: Hypertension, ischemic heart disease, congestive heart failure, chronic kidney disease. PAST SURGICAL HISTORY: Hysterectomy. REVIEW OF SYSTEMS: The patient has generalized weakness, feeling tired, shortness of breath on exertion. There is no chest pain. No palpitation. She has dry cough. No vomiting, but occasionally has nausea. No history of diarrhea. No abdominal pain. She has not been taking any nonsteroidal anti-inflammatory drugs. Her hemoglobin was low and she was started on iron. She is complaining of constipation and, according to her, she was trying to get Epogen but was not able to get as outpatient. SOCIAL HISTORY: The patient has past history of smoking. There is no history of heavy alcoholism. FAMILY HISTORY: Not significant. ALLERGIES: ALLERGIC TO ACETAMINOPHEN, CODEINE, GUAIFENESIN, METFORMIN, POTASSIUM IODIDE PSEUDOEPHEDRINE. CURRENT MEDICATIONS: 1. Aspirin 81 mg once a day. 2. Dulcolax p.r.n. 3. Bumex 1 mg IV b.i.d. 4. Coreg 3.125 mg b.i.d. 5. Plavix 75 mg daily. 6. Zofran as needed. 7. Protonix as needed. 8. Larisa-Colace as needed. 9. Restoril as needed. PHYSICAL EXAMINATION: GENERAL: The patient is awake and alert. She is sitting up in a chair in some respiratory distress. VITAL SIGNS: Last blood pressure 108/77, temperature is 97.8, oxygen saturations 99%. HEENT: Pupils are mid constricted. Nonicteric sclerae. Conjunctivae pale. NECK: Supple. JVD is slightly elevated. LUNGS: The patient has bilateral decreased air entry in the base . HEART: S1, S2. Regular rhythm. ABDOMEN: Distended, soft, lax. There is no tenderness. EXTREMITIES: She has bilateral 2+ edema. LABORATORY DATA: WBC count is 5.6, hemoglobin 8.2, platelet count of 319. Sodium is 134, potassium 3.7, chloride 94, bicarbonate 25.9, BUN 73, creatinine 3.3, glucose 197, calcium 9.6, magnesium 3.1. AST and ALT are normal. Alkaline phosphatase is 198. Troponin I is less than 0.02. BNP is greater than 5000. Albumin is 3.1, total protein is 7.6. Urinalysis showing protein of 500 or greater. IMAGING STUDIES: The patient had a chest x-ray done, which shows bilateral small pleural effusion with increased vascular marking. During her last visit, she had done ultrasound of the kidneys done in 09/2017 which shows that she has no evidence of hydronephrosis. There is increased echogenicity and 3 mm nonobstructing stone in both kidneys. ASSESSMENT AND PLAN: The patient has chronic kidney disease and there is some acute worsening. She has more proteinuria than the last time. Her BENNY was positive during the last time, so I will check a 24-hour urine and also get an ANCA ____and agree with continuing with diuretics, which is Bumex. I will increase the dose to 2 mg b.i.d. and follow the urine output and the BUN and creatinine. I did discuss with the patient and her significant other about the possibility of dialysis if her renal function does not improve. The patient has been following with Dr. Cano. I will be following the patient since he is on vacation. Further recommendation will be given in the due course. Thank you for the consultation. MD TIM Mixon/ , 06:55 PM , 07:41 PM
[2018-02-15] MEDS ORDERED: Non-Formulary Drug (Rosuvastatin [Rosuvastatin] 40 MG) PO SCH (21:00)
[2018-02-16] MEDS: Acetaminophen 325 MG Tablet PO PRN (01:23)
[2018-02-16] MEDS: Heparin - SQ 10,000 UNITS/ML Vial SQ SCH ×2 (05:11→15:47)
[2018-02-16 07:27] LABS: Eos # (Auto) 0.1 th/mm3 (0.0-0.4); Eos % (Auto) 2.1 % (0.0-4.0); Hematocrit 22.9 % (35.0-46.0); Hemoglobin 7.2 gm/dL (11.6-15.3); Lymph # (Auto) 0.9 th/mm3 (1.0-4.8); Lymph % (Auto) 19.5 % (9.0-44.0); Mean Corpuscular HGB Conc 31.3 % (32.0-36.0); Mean Corpuscular Hemoglobin 28.3 pg (27.0-34.0); Mean Corpuscular Volume 90.3 fL (80.0-100.0); Mean Platelet Volume 8.6 fL (7.0-11.0); Mono # (Auto) 0.4 th/mm3 (0.0-0.9); Neut % (Auto) 67.4 % (16.0-70.0); Platelet Count 244 th/mm3 (150-450); Red Blood Count 2.54 mil/mm3 (4.00-5.30); Red Cell Distribution Width 20.6 % (11.6-17.2); White Blood Count 4.4 th/mm3 (4.0-11.0)
[2018-02-16 07:51] LABS: Calcium 8.7 mg/dL (8.5-10.1); Carbon Dioxide 29.7 meq/L (21.0-32.0); Phosphorus 4.9 mg/dL (2.5-4.9); Potassium 3.4 meq/L (3.5-5.1)
--- NOTE | 2018-02-16 08:25 | P.PN ---
Physical Exam Vital signs: Vital Signs 02/15/18 09:00 02/15/18 10:00 02/15/18 11:00 Temperature 97.9 F 97.9 F Pulse Rate 81 81 Respiratory Rate 20 16 20 Blood Pressure 116/60 118/77 Pulse Oximetry 99 99 02/15/18 13:00 02/15/18 14:10 02/15/18 20:00 Temperature 97.9 F 97.8 F 98 F Pulse Rate 82 81 86 Respiratory Rate 20 20 20 Blood Pressure 124/68 108/77 101/66 Pulse Oximetry 99 100 02/16/18 00:00 02/16/18 04:00 Temperature 98.4 F 98.8 F Pulse Rate 81 70 Respiratory Rate 20 20 Blood Pressure 122/61 116/59 L Pulse Oximetry 100 100 Intake & Output 02/15/18 02/16/18 02/16/18 18:59 06:59 18:59 Intake Total 100 / 100 770 / 770 Output Total 400 / 400 Balance -300 / -300 770 / 770 Intake: IV 100 / 100 Rocephin Inj 1,000 MG In NS Inj 100 / 100 100 ML @ 200 mls/hr IV.SIG Q24H [facility] Rx#:[id number] Oral 770 / 770 Output: Urine 400 / 400 Other: # Voids 1 450 # Bowel Movements 1 Results - Labs CBC & Chem 7: 02/16/18 06:22 02/16/18 06:22 Laboratory Results - last 24 hr 02/15/18 02/16/18 02/16/18 00:28 06:22 06:22 WBC 4.4 RBC 2.54 L Hgb 7.2 L Hct 22.9 L MCV 90.3 MCH 28.3 MCHC 31.3 L RDW 20.6 H Plt Count 244 MPV 8.6 Neut % (Auto) 67.4 Lymph % (Auto) 19.5 [place] % (Auto) 10.0 H Eos % (Auto) 2.1 Baso % (Auto) 1.0 Neut # (Auto) 3.0 Lymph # (Auto) 0.9 L [place] # (Auto) 0.4 Eos # (Auto) 0.1 Baso # (Auto) 0.0 WBC Differential . Differential Comment Auto diff final Sodium 136 Potassium 3.4 L Chloride 97 L Carbon Dioxide 29.7 Anion Gap 9 BUN 78 H Creatinine 3.32 H Estimated GFR 14 L Random Glucose 162 H Calcium 8.7 D Phosphorus 4.9 Iron 153 TIBC 392 % Saturation 39.0 Ferritin 45 Assessment and Plan - Plan 72-year-old female with known history of CAD status post cath sometime in 2018 with 100% occluded LAD, history of DANICA in November 2016, cardiomyopathy last ejection fraction on review was 25-30%, admitted for worsening shortness of breath. Worsening renal functions Acute CHF exacerbation with cardiomyopathy with known ejection fraction of 35-30 % History of CAD status post CABG status post DANICA-LAD -Continue on home oxygen -Patient received diuresis now and is doing very well. Continue on Bumex with close monitoring of renal functions - Continue on cardiac meds-aspirin, Plavix - will add Coreg to her regimen - Continue on Zaroxolyn. - cough likely related to CHF- no fever, no sputum, no leukocytosis. 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 Cano - for worsening renal functions - Cancel consult to Dr. [place] UTI- UA with pyuria - continue on rocephin- ff c and S Anemia of chronic kidney disease. -Continue on iron supplements - Per patient was supposed to be on Epogen however states that this was too expensive and can't afford it. Diabetes type 2 now controlled per patient off medications. - will ff blood sugars and monitor Hyperlipidemia. Continue on statins Heparin subcu for DVT prophylaxis Activity- out of bed to chair tomorrow . PT consult
--- NOTE | 2018-02-16 08:31 | P.PN ---
Subjective Interval history: overnight- blood sugars elevated denies any pain, nausea or vomiting no diarrhea voiding- no dysuria Physical Exam Vital signs: Vital Signs 02/15/18 09:00 02/15/18 10:00 02/15/18 11:00 Temperature 97.9 F 97.9 F Pulse Rate 81 81 Respiratory Rate 20 16 20 Blood Pressure 116/60 118/77 Pulse Oximetry 99 99 02/15/18 13:00 02/15/18 14:10 02/15/18 20:00 Temperature 97.9 F 97.8 F 98 F Pulse Rate 82 81 86 Respiratory Rate 20 20 20 Blood Pressure 124/68 108/77 101/66 Pulse Oximetry 99 100 02/16/18 00:00 02/16/18 04:00 Temperature 98.4 F 98.8 F Pulse Rate 81 70 Respiratory Rate 20 20 Blood Pressure 122/61 116/59 L Pulse Oximetry 100 100 Intake & Output 02/15/18 02/16/18 02/16/18 18:59 06:59 18:59 Intake Total 100 / 100 770 / 770 Output Total 400 / 400 Balance -300 / -300 770 / 770 Intake: IV 100 / 100 Rocephin Inj 1,000 MG In NS Inj 100 / 100 100 ML @ 200 mls/hr IV.SIG Q24H [facility] Rx#:[id number] Oral 770 / 770 Output: Urine 400 / 400 Other: # Voids 1 450 # Bowel Movements 1 Narrative: awake and alert, no acute distress, anicteric lungs- decreased breath sounds, no rales or wheezes regular rhythm, 4/6 systolic murmur left sternal border abdomen soft, nontender extremities no edmea neuro exam- non focal- moves all extremities spontaenously- no focal weakness Results - Labs CBC & Chem 7: 02/16/18 06:22 02/19/18 04:36 Laboratory Results - last 24 hr 02/15/18 02/16/18 02/16/18 00:28 06:22 06:22 WBC 4.4 RBC 2.54 L Hgb 7.2 L Hct 22.9 L MCV 90.3 MCH 28.3 MCHC 31.3 L RDW 20.6 H Plt Count 244 MPV 8.6 Neut % (Auto) 67.4 Lymph % (Auto) 19.5 [place] % (Auto) 10.0 H Eos % (Auto) 2.1 Baso % (Auto) 1.0 Neut # (Auto) 3.0 Lymph # (Auto) 0.9 L [place] # (Auto) 0.4 Eos # (Auto) 0.1 Baso # (Auto) 0.0 WBC Differential . Differential Comment Auto diff final Sodium 136 Potassium 3.4 L Chloride 97 L Carbon Dioxide 29.7 Anion Gap 9 BUN 78 H Creatinine 3.32 H Estimated GFR 14 L Random Glucose 162 H Calcium 8.7 D Phosphorus 4.9 Iron 153 TIBC 392 % Saturation 39.0 Ferritin 45 Assessment and Plan - Plan 72-year-old female with known history of CAD status post cath sometime in 2018 with 100% occluded LAD, history of DANICA in November 2016, cardiomyopathy last ejection fraction on review was 25-30%, admitted for worsening shortness of breath. Worsening renal functions Acute CHF exacerbation with cardiomyopathy with known ejection fraction of 35-30 % History of CAD status post CABG status post DANICA-LAD -Continue on home oxygen -Patient received diuresis now and is doing very well. Continue on Bumex with close monitoring of renal functions - Continue on cardiac meds-aspirin, Plavix - continue on Coreg - cough likely related to CHF- no fever, no sputum, no leukocytosis. 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 -Continue on iron supplements - Per patient was supposed to be on Epogen however states that this was too expensive and can't afford it. - received IV Epogen 02/15 Diabetes type 2 - will ff blood sugars and monitor - some eelvated readings with low sliding scale - change to ADA diet - check A1C - dietitian consulted Hyperlipidemia. Continue on statins Heparin subcu for DVT prophylaxis Activity- out of bed to chair PT consult
[2018-02-16] MEDS ORDERED: Dextrose 50% in Water 50 ML Vial IV.PUSH PRN (08:32)
[2018-02-16] MEDS: Senna/Docusate Sodium 8.6/50 MG Tablet PO SCH ×2 (09:39→22:03)
[2018-02-16] MEDS: Tiotropium Bromide 18 MCG/ACT Inhaler INH SCH (11:35)
--- NOTE | 2018-02-16 11:36 | P.PNNP ---
Subjective Interval history: This is a 72-year-old female with past medical history of hypertension, chronic kidney disease, congestive heart failure, chronic obstructive pulmonary disease who came to the hospital with complaint of worsening shortness of breath. Nephrology was called to see the patient regarding chronic kidney disease. The patient has known history of chronic kidney disease. She was admitted here in 09/2017 and at that time her kidney function got worse and she was started on dialysis. She was on dialysis for a week or 10 days and then her kidney function improved and she was taken off dialysis. The last creatinine we have was 2.1-2.2. This was in September. Now patient came with a creatinine of 3.3. She has noticed that she has worsening shortness of breath. She was taking her diuretic at home, which is furosemide 40 mg once a day. She has a cough which is mainly dry. There is no chest pain. No palpitation. She has occasional nausea. There is no vomiting. She did not have any dysuria, hematuria. Denies taking any nonsteroidal anti-inflammatory drugs. Resting comfortably. Mild shortness of breath. No edema. <Candi Servin - Last Filed: 02/16/18 11:22> Physical Exam Vital signs: Vital Signs 02/15/18 13:00 02/15/18 14:10 02/15/18 20:00 Temperature 97.9 F 97.8 F 98 F Pulse Rate 82 81 86 Respiratory Rate 20 20 20 Blood Pressure 124/68 108/77 101/66 Pulse Oximetry 99 100 02/16/18 00:00 02/16/18 04:00 02/16/18 08:00 Temperature 98.4 F 98.8 F 97.8 F Pulse Rate 81 70 65 Respiratory Rate 20 20 19 Blood Pressure 122/61 116/59 L 116/57 L Pulse Oximetry 100 100 95 Intake & Output 02/15/18 02/16/18 02/16/18 18:59 06:59 18:59 Intake Total 100 / 100 770 / 770 Output Total 400 / 400 Balance -300 / -300 770 / 770 Intake: IV 100 / 100 Rocephin Inj 1,000 MG In NS Inj 100 / 100 100 ML @ 200 mls/hr IV.SIG Q24H [facility] Rx#:[id number] Oral 770 / 770 Output: Urine 400 / 400 Other: # Voids 1 450 # Bowel Movements 1 - Constitutional no acute distress - Routine HEENT Exam Head: Present: normocephalic ENT: Present: mucous membranes moist - Routine Neck Exam Present: supple. Absent: JVD - Routine Respiratory Exam Present: decreased breath sounds. Absent: rales, rhonchi - Routine Cardiovascular Exam Present: RRR - Routine Abdominal Exam Present: soft, normoactive bowel sounds, distended. Absent: tenderness - Routine Extremities Exam Absent: edema - Routine Skin Exam Present: dry, warm - Routine Neurological Exam Present: alert, oriented X3 <Candi Servin - Last Filed: 02/16/18 11:22> Vital signs: Vital Signs 02/15/18 20:00 02/16/18 00:00 02/16/18 04:00 Temperature 98 F 98.4 F 98.8 F Pulse Rate 86 81 70 Respiratory Rate 20 20 20 Blood Pressure 101/66 122/61 116/59 L Pulse Oximetry 100 100 100 02/16/18 08:00 02/16/18 12:00 02/16/18 16:00 Temperature 97.8 F 97.6 F 97.9 F Pulse Rate 65 64 70 Respiratory Rate 19 19 19 Blood Pressure 116/57 L 118/56 L 114/58 L Pulse Oximetry 98 97 100 Intake & Output 02/15/18 02/16/18 02/16/18 18:59 06:59 18:59 Intake Total 100 / 100 770 / 770 Output Total 400 / 400 / Balance -300 / -300 770 / 770 -1 / -1 Intake: IV 100 / 100 Rocephin Inj 1,000 MG In NS Inj 100 / 100 100 ML @ 200 mls/hr IV.SIG Q24H [facility] Rx#:[id number] Oral 770 / 770 Output: Urine 400 / 400 Stool 1 / Other: # Voids 1 450 1 # Bowel Movements 1 <Yuriy Mckeon - Last Filed: 02/16/18 18:52> Assessment and Plan - Assessment (1) Acute kidney injury Code(s): N17.9 - Acute kidney failure, unspecified Status: Acute - Plan Acute kidney injury The patient has chronic kidney disease and there is some acute worsening. MOE possible related to urinary tract infection The last creatinine we have was 2.1-2.2. This was in September. Her BENNY was positive during the last time. Has history of hemodialysis in past for acute worsening. Has been discussed with the patient per Dr. Mckeon about the possibility of dialysis if her renal function does not improve. Creatinine is stable at 3.32 no urgent need for dialysis 24 hour urine for protein and anti DNA DS pending. Continue Bumex and metolazone Avoid nephrotoxins Will follow urinary output and BMP Abnormal urine continue antibiotics culture pending. <Candi Servin - Last Filed: 02/16/18 11:22> - Assessment (1) Acute kidney injury Code(s): N17.9 - Acute kidney failure, unspecified Status: Acute - Attending Attestation Patient seen and examined, agree with above. Creatinine is same, K was low and replaced. <Yuriy Mckeon - Last Filed: 02/16/18 18:52>
--- NOTE | 2018-02-16 13:36 | ECHRPT ---
Indication: HEART FAILURE CONCLUSIONS Upper normal left ventricular size. Mild concentric left ventricular hypertrophy. The left ventricular systolic function is severely reduced with an estimated ejection fraction of 30 %. The basal posterior wall contracts normally; all other arenas are severely hypokinetic. Moderate mitral annular calcification is present. Mild mitral valve regurgitation. Mild aortic valve sclerosis is present. Trace aortic valve regurgitation. There is moderate to severe tricuspid regurgitation. The estimated systolic pulmonary pressure is 65 m Hg. A moderate left sided pleural effusion is noted. BP: / HR: Rhythm: MEASUREMENTS (Male / Female) Normal Values Technical Quality: 2D ECHO LV Diastolic Diameter PLAX 4.7 cm 4.2 - 5.9 / 3.9 - 5.3 cm LV Systolic Diameter PLAX 4.2 cm IVS Diastolic Thickness 1.5 cm 0.6 - 1.0 / 0.6 - 0.9 cm LVPW Diastolic Thickness 0.6 cm 0.6 - 1.0 / 0.6 - 0.9 cm LV Relative Wall Thickness 0.5 RV Internal Dim ED PLAX 2.4 cm LA Systolic Diameter LX 4.3 cm 3.0 - 4.0 / 2.7 - 3.8 cm M-MODE Aortic Root Diameter MM 2.5 cm AV Cusp Separation MM 1.5 cm DOPPLER MV Peak Velocity 124.0 cm/s MV Peak Gradient 6.2 mmHg MV Mean Velocity 67.2 cm/s MV Mean Gradient 2.0 mmHg MV Area PHT 4.2 cm MR Peak Velocity 444.0 cm/s MR Peak Gradient 78.9 mmHg Mitral E Point Velocity 118.0 cm/s Mitral A Point Velocity 59.8 cm/s Mitral E to A Ratio 2.0 TR Peak Velocity 402.0 cm/s TR Peak Gradient 64.6 mmHg Right Atrial Pressure 5.0 mmHg Pulmonary Artery Systolic Pressu 69.6 mmHg Right Ventricular Systolic Press 69.6 mmHg FINDINGS LEFT VENTRICLE Upper normal left ventricular size. Mild concentric left ventricular hypertrophy. The left ventricular systolic function is severely reduced with an estimated ejection fraction of 30 %. The basal posterior wall contracts normally; all other arenas are severely hypokinetic. RIGHT VENTRICLE Normal right ventricular size and systolic function. LEFT ATRIUM The left atrial size is normal. RIGHT ATRIUM The right atrial size is normal. ATRIAL SEPTUM Normal atrial septal thickness without atrial level shunting by limited color doppler interrogation. AORTA The aortic root and proximal ascending aorta are normal in size on limited imaging. MITRAL VALVE Moderate mitral annular calcification is present. Mild mitral valve regurgitation. AORTIC VALVE Mild aortic valve sclerosis is present. Trace aortic valve regurgitation. TRICUSPID VALVE There is moderate to severe tricuspid regurgitation. The estimated systolic pulmonary pressure is 65 m Hg. PULMONARY VALVE No pulmonary valve regurgitation or stenosis. VESSELS The inferior vena cava is normal in size. PERICARDIUM A moderate left sided pleural effusion is noted. Vj Bautista MD (Electronically Signed) Final Date:16 February 2018 13:34
[2018-02-16] MEDS: Insulin NovoLOG Aspart Correctional Sugar Inj SQ SCH ×2 (18:27→22:04)
[2018-02-17] MEDS: Heparin - SQ 10,000 UNITS/ML Vial SQ SCH ×2 (03:22→16:51)
[2018-02-17 07:53] LABS: Calcium 8.7 mg/dL (8.5-10.1); Carbon Dioxide 24.7 meq/L (21.0-32.0); Potassium 3.9 meq/L (3.5-5.1)
[2018-02-17] MEDS: Senna/Docusate Sodium 8.6/50 MG Tablet PO SCH ×2 (10:40→20:39)
[2018-02-17] MEDS: Tiotropium Bromide 18 MCG/ACT Inhaler INH SCH (12:50)
[2018-02-17] MEDS: Insulin NovoLOG Aspart Correctional Sugar Inj SQ SCH ×5 (13:32→21:53)
--- NOTE | 2018-02-17 14:43 | P.PN ---
Subjective Interval history: no complains no nause aor vomiting no pain alert but slightly confused Physical Exam Vital signs: Vital Signs 02/16/18 16:00 02/16/18 20:00 02/16/18 21:48 Temperature 97.9 F 98 F Pulse Rate 70 76 Respiratory Rate 19 22 Blood Pressure 114/58 L 136/60 Pulse Oximetry 100 95 98 02/17/18 00:00 02/17/18 04:00 02/17/18 08:00 Temperature 98.5 F 98.3 F Pulse Rate 79 77 76 Respiratory Rate 20 19 Blood Pressure 112/56 L 122/57 L Pulse Oximetry 98 98 02/17/18 09:00 02/17/18 12:00 Temperature 97.5 F L Pulse Rate 66 62 Respiratory Rate 24 Blood Pressure 101/51 L Pulse Oximetry 94 L Intake & Output 02/16/18 02/17/18 02/17/18 18:59 06:59 18:59 Intake Total 100 / 100 400 / 400 Output Total 1 / 1 100 / 100 Balance 99 / 99 300 / 300 Intake: IV 100 / 100 Rocephin Inj 1,000 MG In NS Inj 100 / 100 100 ML @ 200 mls/hr IV.SIG Q24H [facility] Rx#:[id number] Oral 400 / 400 Output: Urine 100 / 100 Stool 1 / Other: # Voids 1 Narrative: awake and alert, no acute distress, anicteric lungs- decreased breath sounds, no rales or wheezes regular rhythm, 4/6 systolic murmur left sternal border abdomen soft, nontender extremities no edmea neuro exam- non focal- moves all extremities spontaneously- no focal weakness Results - Labs CBC & Chem 7: 02/16/18 06:22 02/20/18 04:05 Laboratory Results - last 24 hr 02/16/18 02/16/18 02/17/18 18:10 21:58 06:58 Sodium 133 L Potassium 3.9 Chloride 95 L Carbon Dioxide 24.7 Anion Gap 13 BUN 79 H Creatinine 3.59 H Estimated GFR 12 L POC Glucose 295 H 171 H Random Glucose 149 H Calcium 8.7 02/17/18 12:36 Sodium Potassium Chloride Carbon Dioxide Anion Gap BUN Creatinine Estimated GFR POC Glucose 290 H Random Glucose Calcium Microbiology 02/15/18 02:40 Clean Catch Urine Urine Culture - Final <10,000 cfu/mL mixed gram positive beronica - no further workup Assessment and Plan - Plan 72-year-old female with known history of CAD status post cath sometime in 2018 with 100% occluded LAD, history of DANICA in November 2016, cardiomyopathy last ejection fraction on review was 25-30%, admitted for worsening shortness of breath. Worsening renal functions Acute CHF exacerbation with cardiomyopathy with known ejection fraction of 35-30 % History of CAD status post CABG status post DANICA-LAD -Continue on home oxygen -Patient received diuresis now and is doing very well. Continue on Bumex with close monitoring of renal functions - Continue on cardiac meds-aspirin, Plavix - continue on Coreg - cough likely related to CHF- no fever, no sputum, no leukocytosis. 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 -Continue on iron supplements - Per patient was supposed to be on Epogen however states that this was too expensive and can't afford it. - received IV Epogen 02/15 Diabetes type 2 - will ff blood sugars and monitor - some eelvated readings with low sliding scale - change to ADA diet - check A1C- pending - dietitian consulted Hyperlipidemia. Continue on statins Heparin subcu for DVT prophylaxis Activity- out of bed to chair PT consult next few days transfer to floor
--- NOTE | 2018-02-17 14:52 | P.PNNP ---
Subjective Interval history: Patient is more confused. Urinary output is low at 100cc/24 hours and creatinine has slightly increased at 3.59. <Candi Servin - Last Filed: 02/17/18 14:54> Physical Exam Vital signs: Vital Signs 02/16/18 16:00 02/16/18 20:00 02/16/18 21:48 Temperature 97.9 F 98 F Pulse Rate 70 76 Respiratory Rate 19 22 Blood Pressure 114/58 L 136/60 Pulse Oximetry 100 95 98 02/17/18 00:00 02/17/18 04:00 02/17/18 08:00 Temperature 98.5 F 98.3 F Pulse Rate 79 77 76 Respiratory Rate 20 19 Blood Pressure 112/56 L 122/57 L Pulse Oximetry 98 98 02/17/18 09:00 02/17/18 12:00 Temperature 97.5 F L Pulse Rate 66 62 Respiratory Rate 24 Blood Pressure 101/51 L Pulse Oximetry 94 L Intake & Output 02/16/18 02/17/18 02/17/18 18:59 06:59 18:59 Intake Total 100 / 100 400 / 400 Output Total 1 / 1 100 / 100 Balance 99 / 99 300 / 300 Intake: IV 100 / 100 Rocephin Inj 1,000 MG In NS Inj 100 / 100 100 ML @ 200 mls/hr IV.SIG Q24H [facility] Rx#:[id number] Oral 400 / 400 Output: Urine 100 / 100 Stool 1 / 1 Other: # Voids 1 - Constitutional mild distress - Routine HEENT Exam Head: Present: normocephalic ENT: Present: mucous membranes dry <Candi Servin - Last Filed: 02/17/18 14:54> Vital signs: Vital Signs 02/16/18 20:00 02/16/18 21:48 02/17/18 00:00 Temperature 98 F Pulse Rate 76 79 Respiratory Rate 22 Blood Pressure 136/60 Pulse Oximetry 95 98 02/17/18 04:00 02/17/18 08:00 02/17/18 09:00 Temperature 98.5 F 98.3 F Pulse Rate 77 76 66 Respiratory Rate 20 19 Blood Pressure 112/56 L 122/57 L Pulse Oximetry 98 98 02/17/18 12:00 02/17/18 16:00 Temperature 97.5 F L 97.5 F L Pulse Rate 62 64 Respiratory Rate 24 12 Blood Pressure 101/51 L 108/53 L Pulse Oximetry 94 L 96 Intake & Output 02/16/18 02/17/18 02/17/18 18:59 06:59 18:59 Intake Total 100 / 100 400 / 400 240 / 240 Output Total 1 / 1 100 / 100 200 / 200 Balance 99 / 99 300 / 300 40 / 40 Intake: IV 100 / 100 Rocephin Inj 1,000 MG In NS Inj 100 / 100 100 ML @ 200 mls/hr IV.SIG Q24H [facility] Rx#:[id number] Oral 400 / 400 240 / 240 Output: Urine 100 / 100 200 / 200 Stool / Other: # Voids 1 # Bowel Movements 1 <Yuriy Mckeon - Last Filed: 02/17/18 18:21> Assessment and Plan - Assessment (1) Acute kidney injury Code(s): N17.9 - Acute kidney failure, unspecified Status: Acute - Plan Acute kidney injury The patient has chronic kidney disease and there is some acute worsening. MOE possible related to urinary tract infection The last creatinine we have was 2.1-2.2. This was in September. Her BENNY was positive during the last time. Has history of hemodialysis in past for acute worsening. Has been discussed with the patient per Dr. Mckeon about the possibility of dialysis if her renal function does not improve. Creatinine is slightly more elevated at 3.59 from 3.32 and oliguric 24 hour urine for protein and anti DNA DS pending. Avoid nephrotoxins Urinary output is decreased at 100 ml/24 hours with increase in creatinine 3.[address] perm[address]ath tomorrow and initiate dialysis Will follow urinary output and BMP <Candi Servin - Last Filed: 02/17/18 14:54> - Assessment (1) Acute kidney injury Code(s): N17.9 - Acute kidney failure, unspecified Status: Acute - Attending Attestation Patient seen and examined, agree with above. Urine out put is low, Need to start HD. <Yuriy Mckeon - Last Filed: 02/17/18 18:21>
[2018-02-17 16:41] LABS: Hemoglobin A1c 6.5 % (4.3-6.0)
[2018-02-17] MEDS ORDERED: Heparin 10,000 UNITS/10 ML Vial (for IV use) OTHER PRN (16:50)
[2018-02-17] MEDS ORDERED: Sod Chloride 0.9% Inj 1,000 ML OTHER PRN ×2 (16:50)
[2018-02-17] MEDS ORDERED: Sod Chloride 0.9% Inj 1,000 ML IV.CONT PRN (16:50)
[2018-02-17] MEDS ORDERED: Heparin 10,000 UNITS/10 ML Vial (for IV use) IV.FLUSH PRN (16:50)
[2018-02-17] MEDS ORDERED: Albumin Human 25% Inj 100 ML IV.SIG PRN (16:50)
[2018-02-17] MEDS ORDERED: Gelatin 12 MM/7 MM Topical Foam TOPICAL PRN (16:50)
[2018-02-17 21:59] LABS: Hepatitis A IgM Antibody Nonreactive (Nonreactive)
[2018-02-17 22:00] LABS: Hepatitits B Surface Antigen Nonreactive (Nonreactive)
[2018-02-18] MEDS: Heparin - SQ 10,000 UNITS/ML Vial SQ SCH (03:20)
[2018-02-18] MEDS ORDERED: Acetaminophen 325 MG Tablet PO PRN (09:00)
[2018-02-18] MEDS ORDERED: Gelatin 12 MM/7 MM Topical Foam TOPICAL PRN (09:00)
[2018-02-18] MEDS ORDERED: Heparin 10,000 UNITS/10 ML Vial (for IV use) IV.FLUSH PRN (09:00)
[2018-02-18] MEDS ORDERED: Sod Chloride 0.9% Inj 1,000 ML IV.CONT PRN (09:00)
[2018-02-18] MEDS ORDERED: Sod Chloride 0.9% Inj 1,000 ML OTHER PRN ×2 (09:00)
[2018-02-18] MEDS ORDERED: Albumin Human 25% Inj 100 ML IV.SIG PRN (09:00)
[2018-02-18] MEDS ORDERED: Heparin 10,000 UNITS/10 ML Vial (for IV use) OTHER PRN (09:00)
[2018-02-18] MEDS: Insulin NovoLOG Aspart Correctional Sugar Inj SQ SCH ×4 (09:08→20:54)
--- NOTE | 2018-02-18 09:58 | P.DIET ---
Nutritional Evaluation Type of nutrition evaluation: initial Screening comments: MDC for diet education acknowledged. Pt remains in ISC with worsening renal fxn and needs dialysis per Nephrology. Pt is not appropriate for diabetic diet education at this time. RD will follow and instruct on diet at a later date.
[2018-02-18] MEDS: Senna/Docusate Sodium 8.6/50 MG Tablet PO SCH ×2 (14:24→20:29)
[2018-02-18] MEDS ORDERED: *Heparin 10,000 UNITS/10 ML Vial Periprocedural ONLY ONE (14:54)
[2018-02-18 15:01] LABS: Hepatitits B Surface Antigen Nonreactive (Nonreactive)
[2018-02-18 15:36] LABS: Hepatitis A IgM Antibody Nonreactive (Nonreactive)
--- NOTE | 2018-02-18 17:03 | IR ---
EXAM DATE: 02/18/2018 3:40 PM EDT AGE/SEX: 72 years / Female INDICATIONS: Patient with acute renal failure in need of non tunneled dialysis catheter placement. CLINICAL DATA: This is the patient's initial encounter. Patient reports that signs and symptoms have been present for 3 days and indicates a pain score of 0/10. MEDICAL/SURGICAL HISTORY: Anemia. CKD, CAD, Cardiomyopathy, Diabetes, CHF, COPD Cholecystectom y. CABGX3 COMPARISON: No prior exams available for comparison. FLUORO TIME (min): 0.3 IMAGE SERIES: 1 ACCESS SITE: Left internal jugular vein DEVICE(S): 14 Egyptian double lumen Schon catheter X20CM . . PROCEDURE : 1. Ultrasound guided venipuncture. 2. Fluoroscopic guidance. 3. Central line placement. The risks, benefits and alternatives to the procedure were explained and verbal and written consent w as obtained. The site was prepped in sterile fashion. Full sterile technique was used, including ca p, mask, sterile gloves and gown and a large sterile sheet. Hand hygiene and 2% chlorhexidine prep w as utilized per protocol for cutaneous antisepsis with appropriate dry time for site. Sterile gel an d sterile probe cover were utilized for ultrasound guidance. The skin and subcutaneous tissues were infiltrated with local anesthetic solution. A suitable site a nahid the vein was selected with ultrasound and fluoroscopic guidance. A small incision was made. Th e vein was accessed under direct ultrasound visualization using the micropuncture technique. The jose ropuncture set was exchanged for a 0.035 wire. The tract was dilated. The catheter was advanced int o position under direct fluoroscopic visualization, and was advanced with the tip at the junction of the superior vena cava and rt atrium. The catheter was fixed in place with suture and a sterile dres sing was applied. The patient tolerated the procedure well and there were no complications. CONCLUSION: 1. Uncomplicated line placement as above. Electronically signed by: Erick Swan MD 02/18/2018 5:01 PM EDT
--- NOTE | 2018-02-18 17:17 | P.PN ---
Subjective Interval history: harshad alert otday ff commandsno complains of nausea or vomiting aware that she needs dialysis Physical Exam Vital signs: Vital Signs 02/17/18 20:00 02/18/18 00:00 02/18/18 04:00 Temperature 97.7 F 97.8 F 97.4 F L Pulse Rate 65 62 61 Respiratory Rate 20 20 20 Blood Pressure 113/56 L 109/52 L 102/54 L Pulse Oximetry 99 93 L 02/18/18 08:00 02/18/18 09:00 02/18/18 10:04 Temperature 97.6 F Pulse Rate 63 63 Respiratory Rate 12 Blood Pressure 142/67 H Pulse Oximetry 95 95 02/18/18 12:00 Temperature 97.5 F L Pulse Rate 66 Respiratory Rate 12 Blood Pressure 109/56 L Pulse Oximetry 94 L Intake & Output 02/17/18 02/18/18 02/18/18 18:59 06:59 18:59 Intake Total 340 / 340 220 / 220 Output Total 200 / 200 150 / 150 Balance 140 / 140 70 / 70 Intake: IV 100 / 100 Rocephin Inj 1,000 MG In NS Inj 100 / 100 100 ML @ 200 mls/hr IV.SIG Q24H [facility] Rx#:[id number] Oral 240 / 240 220 / 220 Output: Urine 200 / 200 150 / 150 Other: # Bowel Movements 1 Narrative: awake and alert, no acute distress, anicteric lungs- decreased breath sounds, no rales or wheezes regular rhythm, 4/6 systolic murmur left sternal border abdomen soft, nontender extremities no edema neuro exam- non focal- moves all extremities spontaneously- no focal weakness Results - Labs CBC & Chem 7: 02/16/18 06:22 02/20/18 04:05 Laboratory Results - last 24 hr 02/15/18 02/17/18 02/17/18 20:45 06:58 17:35 POC Glucose Hemoglobin A1c 6.5 H Ur 24 Hour Volume Ur Total Protein 24 Hr Double Strand DNA Ab 20.7 Hepatitis A IgM Ab Nonreactive Hep Bs Antigen Nonreactive Hep B Core IgM Ab Nonreactive Hep C IgG Ab Nonreactive 02/17/18 02/17/18 02/18/18 20:37 22:38 08:53 POC Glucose 191 H 110 Hemoglobin A1c Ur 24 Hour Volume 250 Ur Total Protein 24 Hr 574 H Double Strand DNA Ab Hepatitis A IgM Ab Hep Bs Antigen Hep B Core IgM Ab Hep C IgG Ab 02/18/18 02/18/18 12:48 13:30 POC Glucose 247 H Hemoglobin A1c Ur 24 Hour Volume Ur Total Protein 24 Hr Double Strand DNA Ab Hepatitis A IgM Ab Nonreactive Hep Bs Antigen Nonreactive Hep B Core IgM Ab Nonreactive Hep C IgG Ab Nonreactive - Imaging Impressions Catheter Placement 02/18/18 00:00 CONCLUSION: 1. Uncomplicated line placement as above. Assessment and Plan - Plan 72-year-old female with known history of CAD status post cath sometime in 2017 with 100% occluded LAD, history of DANICA in November 2016, cardiomyopathy last ejection fraction on review was 25-30%, admitted for worsening shortness of breath. Worsening renal functions Acute CHF exacerbation with cardiomyopathy with known ejection fraction of 35-30 % History of CAD status post CABG status post DANICA-LAD -Continue on home oxygen -Patient received diuresis now and is doing very well. Continue on Bumex with close monitoring of renal functions - Continue on cardiac meds-aspirin, Plavix - continue on Coreg - Continue on Zaroxolyn. 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 -Continue on iron supplements - Per patient was supposed to be on Epogen however states that this was too expensive and can't afford it. - received IV Epogen 02/15 Diabetes type 2 - A1C - 6.5 - will ff blood sugars and monitor - cover with low sliding scale ADA diet - dietitian ff Hyperlipidemia. Continue on statins Heparin subcu for DVT prophylaxis Activity- out of bed to chair
--- NOTE | 2018-02-18 19:11 | P.PNNP ---
Subjective Interval history: Patient seen during Dialysis, not in distress. Physical Exam Vital signs: Vital Signs 02/17/18 20:00 02/18/18 00:00 02/18/18 04:00 Temperature 97.7 F 97.8 F 97.4 F L Pulse Rate 65 62 61 Respiratory Rate 20 20 20 Blood Pressure 113/56 L 109/52 L 102/54 L Pulse Oximetry 99 93 L 02/18/18 08:00 02/18/18 09:00 02/18/18 10:04 Temperature 97.6 F Pulse Rate 63 63 Respiratory Rate 12 Blood Pressure 142/67 H Pulse Oximetry 95 95 02/18/18 12:00 Temperature 97.5 F L Pulse Rate 66 Respiratory Rate 12 Blood Pressure 109/56 L Pulse Oximetry 94 L Intake & Output 02/18/18 02/18/18 02/19/18 06:59 18:59 06:59 Intake Total 220 / 220 Output Total 150 / 150 Balance 70 / 70 Intake: Oral 220 / 220 Output: Urine 150 / 150 Other: # Bowel Movements 1 Narrative: awake and alert, no acute distress, anicteric lungs- decreased breath sounds, no rales or wheezes regular rhythm, 4/6 systolic murmur left sternal border abdomen soft, nontender extremities no edema neuro exam- non focal- moves all extremities spontaneously- no focal weakness Assessment and Plan - Assessment (1) Acute kidney injury Code(s): N17.9 - Acute kidney failure, unspecified Status: Acute - Plan Acute kidney injury The patient has chronic kidney disease and there is some acute worsening. MOE possible related to urinary tract infection The last creatinine we have was 2.1-2.2. This was in September. Her BENNY was positive during the last time. Has history of hemodialysis in past for acute worsening. Has been discussed with the patient per Dr. Mckeon about the possibility of dialysis if her renal function does not improve. Creatinine is slightly more elevated at 3.59 from 3.32 and oliguric 24 hour urine for protein and anti DNA DS pending. Avoid nephrotoxins Urinary output is decreased at 100 ml/24 hours with increase in creatinine. PermCath done and started on dialysis. Remove fluid with HD as tolerated. Will follow urinary output and BMP
[2018-02-18] MEDS: Acetaminophen 325 MG Tablet PO PRN (20:35)
[2018-02-19 06:10] LABS: Carbon Dioxide 29.7 meq/L (21.0-32.0); Potassium 3.1 meq/L (3.5-5.1)
--- NOTE | 2018-02-19 10:39 | P.PNNP ---
Subjective Interval history: Seen during hemodialysis tolerating well. Creatinine at 2.60 and potassium at 3.1 <Candi Servin - Last Filed: 02/19/18 10:31> Physical Exam Vital signs: Vital Signs 02/18/18 12:00 02/18/18 20:00 02/19/18 00:00 Temperature 97.5 F L 99.0 F 97.5 F L Pulse Rate 66 75 66 Respiratory Rate 12 21 20 Blood Pressure 109/56 L 110/53 L Pulse Oximetry 94 L 98 97 02/19/18 01:37 02/19/18 04:00 02/19/18 08:00 Temperature 97.4 F L 97.4 F L Pulse Rate 59 L 63 Respiratory Rate 23 17 Blood Pressure 107/53 L 131/63 Pulse Oximetry 96 99 99 Intake & Output 02/18/18 02/19/18 02/19/18 18:59 06:59 18:59 Intake Total 960 / 960 Output Total 300 / 300 Balance 660 / 660 Intake: Oral 960 / 960 Output: Urine 300 / 300 Other: Date of Last Bowel Movement 02/18/18 # Bowel Movements 1 - Constitutional no acute distress - Routine HEENT Exam Head: Present: normocephalic ENT: Present: mucous membranes moist - Routine Neck Exam Present: supple. Absent: JVD - Routine Respiratory Exam Present: decreased breath sounds. Absent: rales, rhonchi - Routine Cardiovascular Exam Present: RRR - Routine Abdominal Exam Present: soft, normoactive bowel sounds, distended. Absent: tenderness - Routine Extremities Exam Present: vascular access. Absent: edema - Routine Skin Exam Present: dry, warm - Routine Neurological Exam Present: alert, oriented X3 <Candi Servin - Last Filed: 02/19/18 10:31> Vital signs: Vital Signs 02/19/18 13:20 02/19/18 16:00 02/19/18 20:00 Temperature 98.2 F 98.5 F 98.3 F Pulse Rate 68 67 68 Respiratory Rate 17 17 16 Blood Pressure 104/54 L 105/77 106/51 L Pulse Oximetry 98 100 98 02/20/18 00:00 02/20/18 04:00 02/20/18 08:00 Temperature 98.0 F 97.9 F 97.9 F Pulse Rate 95 H 64 77 Respiratory Rate 17 14 21 Blood Pressure 137/87 120/70 116/72 Pulse Oximetry 95 96 100 02/20/18 08:46 Temperature Pulse Rate Respiratory Rate Blood Pressure Pulse Oximetry 97 Intake & Output 02/19/18 02/20/18 02/20/18 18:59 06:59 18:59 Intake Total 600 / 600 Output Total 25 / 25 Balance 600 / 600 -25 / -25 Intake: Oral 600 / 600 Output: Urine 25 / 25 Other: # Voids 1 1 Date of Last Bowel Movement 02/18/18 02/19/18 <Yuriy Mckeon - Last Filed: 02/20/18 10:18> Assessment and Plan - Assessment (1) Acute kidney injury Code(s): N17.9 - Acute kidney failure, unspecified Status: Acute - Plan Acute kidney injury The patient has chronic kidney disease and there is some acute worsening. MOE possible related to urinary tract infection The last creatinine we have was 2.1-2.2. This was in September. Her BENNY was positive during the last time. Anti DNA DS normal Has history of hemodialysis in past for acute worsening. Creatinine at 2.60 Urinary output has improved at 300ml/24 hours Avoid nephrotoxins Hemodialysis started on 02/18 with second day today Seen during hemodialysis today tolerating well will remove fluid as tolerated. Hypokalemia at 3.1 will adjust K bath accordingly Will follow urinary output, BMP, and watch for renal recovery Next planned hemodialysis will be on Wednesday unless otherwise needed <Candi Servin - Last Filed: 02/19/18 10:31> - Assessment (1) Acute kidney injury Code(s): N17.9 - Acute kidney failure, unspecified Status: Acute - Attending Attestation Patient seen and examined, agree with above. HD done , tolerated well. If no improvement, possibly will need preparation for skilled nursing HD. <Yuriy Mckeon - Last Filed: 02/20/18 10:18>
[2018-02-19] MEDS: Tiotropium Bromide 18 MCG/ACT Inhaler INH SCH (11:17)
[2018-02-19] MEDS: Senna/Docusate Sodium 8.6/50 MG Tablet PO SCH ×2 (11:18→21:27)
[2018-02-19] MEDS: Insulin NovoLOG Aspart Correctional Sugar Inj SQ SCH ×4 (14:10→21:30)
--- NOTE | 2018-02-19 18:08 | P.PN ---
Subjective Interval history: no complains of pain feeling better, no nausea or vomiting had hemodialysis today- toelrated well Physical Exam Vital signs: Vital Signs 02/18/18 20:00 02/19/18 00:00 02/19/18 01:37 Temperature 99.0 F 97.5 F L Pulse Rate 75 66 Respiratory Rate 21 20 Blood Pressure 110/53 L Pulse Oximetry 98 97 96 02/19/18 04:00 02/19/18 08:00 02/19/18 09:00 Temperature 97.4 F L 97.4 F L Pulse Rate 59 L 63 63 Respiratory Rate 23 17 Blood Pressure 107/53 L 131/63 Pulse Oximetry 99 99 02/19/18 13:20 02/19/18 16:00 Temperature 98.2 F 98.5 F Pulse Rate 68 67 Respiratory Rate 17 17 Blood Pressure 104/54 L 105/77 Pulse Oximetry 98 100 Intake & Output 02/18/18 02/19/18 02/19/18 18:59 06:59 18:59 Intake Total 100 / 100 960 / 960 600 / 600 Output Total 1000 / 1000 300 / 300 Balance -900 / -900 660 / 660 600 / 600 Weight 54.431 kg Intake: IV 100 / 100 Rocephin Inj 1,000 MG In NS Inj 100 / 100 100 ML @ 200 mls/hr IV.SIG Q24H [facility] Rx#:[id number] Oral 960 / 960 600 / 600 Output: Urine 300 / 300 Hemodialysis Amount 1000 / 1000 Other: Date of Last Bowel Movement 02/18/18 02/18/18 # Bowel Movements 1 Narrative: awake and alert, no acute distress, anicteric, oral mucosa moist lungs- decreased breath sounds, no rales or wheezes regular rhythm, 4/6 systolic murmur left sternal border abdomen soft, nontender extremities no edema, left foot TMA stump- well healed neuro exam- non focal- moves all extremities spontaneously- no focal weakness Results - Labs CBC & Chem 7: 02/16/18 06:22 02/20/18 04:05 Laboratory Results - last 24 hr 02/18/18 02/19/18 02/19/18 20:41 04:36 17:08 Sodium 139 Potassium 3.1 L D Chloride 99 Carbon Dioxide 29.7 Anion Gap 10 BUN 47 H Creatinine 2.60 H Estimated GFR 18 L POC Glucose 184 H 179 H Random Glucose 179 H Calcium 8.0 L Assessment and Plan - Plan 72-year-old female with known history of CAD status post cath sometime in 2018 with 100% occluded LAD, history of DANICA in November 2016, cardiomyopathy last ejection fraction on review was 25-30%, admitted for worsening shortness of breath. Worsening renal functions 72 years old female Acute CHF exacerbation with cardiomyopathy with known ejection fraction of 35-30 % History of CAD status post CABG status post DANICA-LAD -Continue on home oxygen -Patient received diuresis now and is doing very well. 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 -Continue on iron supplements - Per patient was supposed to be on Epogen however states that this was too expensive and can't afford it. -on IV Epogen - M-W- Diabetes type 2 - A1C - 6.5 - will ff blood sugars and monitor - cover with low sliding scale ADA diet - dietitian ff Hyperlipidemia. Continue on statins Baseline ambulates with a walker - History of S/P left TMA Heparin subcu for DVT prophylaxis Activity- out of bed to chair - encourage patient- to up and ambulate with her walker PT consult in am
[2018-02-20 05:45] LABS: Calcium 7.9 mg/dL (8.5-10.1); Potassium 3.9 meq/L (3.5-5.1)
--- NOTE | 2018-02-20 07:50 | P.PN ---
Subjective Interval history: patient feels great no complains of pain states still voiding a little Physical Exam Vital signs: Vital Signs 02/19/18 08:00 02/19/18 09:00 02/19/18 13:20 Temperature 97.4 F L 98.2 F Pulse Rate 63 63 68 Respiratory Rate 17 17 Blood Pressure 131/63 104/54 L Pulse Oximetry 99 98 02/19/18 16:00 02/19/18 20:00 02/20/18 00:00 Temperature 98.5 F 98.3 F 98.0 F Pulse Rate 67 68 95 H Respiratory Rate 17 16 17 Blood Pressure 105/77 106/51 L 137/87 Pulse Oximetry 100 98 95 02/20/18 04:00 Temperature 97.9 F Pulse Rate 64 Respiratory Rate 14 Blood Pressure 120/70 Pulse Oximetry 96 Intake & Output 02/19/18 02/20/18 02/20/18 18:59 06:59 18:59 Intake Total 600 / 600 Output Total 25 / 25 Balance 600 / 600 -25 / -25 Intake: Oral 600 / 600 Output: Urine 25 / 25 Other: # Voids 1 1 Date of Last Bowel Movement 02/18/18 02/19/18 Narrative: awake and alert, no acute distress, anicteric, oral mucosa moist dialysis cath in place- left lungs- decreased breath sounds, no rales or wheezes regular rhythm, 4/6 systolic murmur left sternal border abdomen soft, nontender extremities no edema, left foot TMA stump- well healed neuro exam- non focal- moves all extremities spontaneously- no focal weakness Results - Labs CBC & Chem 7: 02/16/18 06:22 02/20/18 04:05 Laboratory Results - last 24 hr 02/19/18 02/19/18 02/20/18 17:08 21:30 04:05 Sodium 138 Potassium 3.9 D Chloride 99 Carbon Dioxide 28.0 Anion Gap 11 BUN 29 H Creatinine 2.16 H Estimated GFR 22 L POC Glucose 179 H 115 H Random Glucose 136 H Calcium 7.9 L - Procedures 02/18- Dialysis catheter placement Assessment and Plan - Plan 72-year-old female with known history of CAD status post cath sometime in 2018 with 100% occluded LAD, history of DANICA in November 2016, cardiomyopathy last ejection fraction on review was 25-30%, admitted for worsening shortness of breath. 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 -Continue on iron supplements - Per patient was supposed to be on Epogen however states that this was too expensive and can't afford it. -on IV Epogen - -- Diabetes type 2 - A1C - 6.5 - will ff blood sugars and monitor - cover with low sliding scale ADA diet - dietitian ff Hyperlipidemia. Continue on statins Baseline ambulates with a walker - History of S/P left TMA Heparin subcu for DVT prophylaxis Activity- out of bed to chair - encourage patient- to up and ambulate with her walker PT consulted
[2018-02-20] MEDS: Senna/Docusate Sodium 8.6/50 MG Tablet PO SCH ×2 (08:36→20:12)
[2018-02-20] MEDS: Tiotropium Bromide 18 MCG/ACT Inhaler INH SCH (08:45)
[2018-02-20] MEDS: Insulin NovoLOG Aspart Correctional Sugar Inj SQ SCH ×4 (08:53→20:16)
--- NOTE | 2018-02-20 11:28 | P.PNNP ---
Subjective Interval history: In good spirits feeling better. Denies any shortness of breath. No edema. <Candi Servin - Last Filed: 02/20/18 11:23> Physical Exam Vital signs: Vital Signs 02/19/18 13:20 02/19/18 16:00 02/19/18 20:00 Temperature 98.2 F 98.5 F 98.3 F Pulse Rate 68 67 68 Respiratory Rate 17 17 16 Blood Pressure 104/54 L 105/77 106/51 L Pulse Oximetry 98 100 98 02/20/18 00:00 02/20/18 04:00 02/20/18 08:00 Temperature 98.0 F 97.9 F 97.9 F Pulse Rate 95 H 64 77 Respiratory Rate 17 14 21 Blood Pressure 137/87 120/70 116/72 Pulse Oximetry 95 96 100 02/20/18 08:46 Temperature Pulse Rate Respiratory Rate Blood Pressure Pulse Oximetry 97 Intake & Output 02/19/18 02/20/18 02/20/18 18:59 06:59 18:59 Intake Total 600 / 600 Output Total 25 / 25 Balance 600 / 600 -25 / -25 Intake: Oral 600 / 600 Output: Urine 25 / 25 Other: # Voids 1 1 Date of Last Bowel Movement 02/18/18 02/19/18 - Constitutional no acute distress - Routine HEENT Exam Head: Present: normocephalic - Routine Neck Exam Present: supple. Absent: JVD - Routine Respiratory Exam Present: decreased breath sounds. Absent: rales, rhonchi, wheezes - Routine Cardiovascular Exam Present: RRR - Routine Abdominal Exam Present: soft, normoactive bowel sounds Comments: large - Routine Extremities Exam Present: vascular access. Absent: edema - Routine Skin Exam Present: dry, warm - Routine Neurological Exam Present: alert, oriented X3 <Candi Servin - Last Filed: 02/20/18 11:23> Vital signs: Vital Signs 02/20/18 12:00 02/20/18 15:25 02/20/18 16:00 Temperature 98.3 F 98.2 F Pulse Rate 61 76 Respiratory Rate 18 24 Blood Pressure 109/59 L 139/50 L Pulse Oximetry 100 97 100 02/20/18 20:00 02/21/18 00:00 02/21/18 04:00 Temperature 97.9 F 98.0 F 97.9 F Pulse Rate 80 74 71 Respiratory Rate 16 17 14 Blood Pressure 123/57 L 120/70 110/54 L Pulse Oximetry 100 100 97 02/21/18 09:30 Temperature 98.1 F Pulse Rate 66 Respiratory Rate 16 Blood Pressure 112/56 L Pulse Oximetry 100 Intake & Output 02/20/18 02/21/18 02/21/18 18:59 06:59 18:59 Intake Total 720 / 720 480 / 480 Balance 720 / 720 480 / 480 Weight 73 kg Intake: Oral 720 / 720 480 / 480 Other: # Voids 2 1 Date of Last Bowel Movement 02/19/18 02/20/18 # Bowel Movements 3 <Yuriy Mckeon - Last Filed: 02/21/18 10:43> Assessment and Plan - Assessment (1) Acute kidney injury Code(s): N17.9 - Acute kidney failure, unspecified Status: Acute - Plan Acute kidney injury The patient has chronic kidney disease and there is some acute worsening. MOE possible related to urinary tract infection The last creatinine we have was 2.1-2.2. This was in September. Her BENNY was positive during the last time. Anti DNA DS normal Has history of hemodialysis in past for acute worsening. Creatinine at 2.60 ->2.16 Urinary output has improved at 300ml/24 hours Avoid nephrotoxins Hemodialysis started on 02/18 Hemodialysis yesterday with UF of 1 liter Will follow urinary output, BMP, and watch for renal recovery Next planned hemodialysis will be on Wednesday unless otherwise needed Possibly will need preparation for retirement HD <Candi Servin - Last Filed: 02/20/18 11:23> - Assessment (1) Acute kidney injury Code(s): N17.9 - Acute kidney failure, unspecified Status: Acute - Attending Attestation Patient seen and examined, agree with above. Patient is feeling better after HD. She has chronic kidney disease and MOE. Watch for renal recovery. 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 Dr. Cano to follow from AM. <Yuriy Mckeon - Last Filed: 02/21/18 10:43>
[2018-02-21 07:33] LABS: Carbon Dioxide 27.5 meq/L (21.0-32.0)
[2018-02-21] MEDS: Insulin NovoLOG Aspart Correctional Sugar Inj SQ SCH ×4 (08:50→23:32)
[2018-02-21] MEDS: Senna/Docusate Sodium 8.6/50 MG Tablet PO SCH (10:54)
[2018-02-21] MEDS: Tiotropium Bromide 18 MCG/ACT Inhaler INH SCH (10:57)
--- NOTE | 2018-02-21 16:46 | P.PN ---
Physical Exam Vital signs: Vital Signs 02/20/18 20:00 02/21/18 00:00 02/21/18 04:00 Temperature 97.9 F 98.0 F 97.9 F Pulse Rate 80 74 71 Respiratory Rate 16 17 14 Blood Pressure 123/57 L 120/70 110/54 L Pulse Oximetry 100 100 97 02/21/18 08:00 02/21/18 09:00 02/21/18 09:30 Temperature 98.1 F Pulse Rate 66 64 66 Respiratory Rate 16 Blood Pressure 112/56 L Pulse Oximetry 100 02/21/18 12:34 Temperature 97.7 F Pulse Rate 64 Respiratory Rate 18 Blood Pressure 123/57 L Pulse Oximetry 100 Intake & Output 02/20/18 02/21/18 02/21/18 18:59 06:59 18:59 Intake Total 720 / 720 480 / 480 Balance 720 / 720 480 / 480 Weight 73 kg Intake: Oral 720 / 720 480 / 480 Other: # Voids 2 1 Date of Last Bowel Movement 02/19/18 02/20/18 02/20/18 # Bowel Movements 3 Narrative: Subjective: The patient was seen earlier today, late entry She is in the chair, less sob still with significant LE edema. SOB imprpving some , mainly she is sob with exertion. Low UOP. + Nonproductive cough No fever or chills. Physical exam: GENERAL: Pleasant 72 yo F in the chair, sob with exertion and with talking. CARDIOVASCULAR: Regular rate and rhythm / 4/4 systolic murmur. RESPIRATORY: Breath sounds equal bilaterally. No accessory muscle use. GASTROINTESTINAL: Abdomen soft, non-tender, nondistended. MUSCULOSKELETAL: extremities with 2+ bilateral LE edema, left foot TMA stump healed well BACK: Nontender without obvious deformity. No CVA tenderness. Assessment and Plan 72-year-old female with known history of CAD status post cath sometime in 2017 with 100% occluded LAD, history of DANICA in November 2016, cardiomyopathy last ejection fraction on review was 25-30%, admitted for worsening shortness of breath. Worsening renal functions Acute CHF exacerbation with cardiomyopathy with known ejection fraction of 35-30 % - Improved with HD History of CAD status post CABG status post DANICA-LAD -Continue on home oxygen - Continue on cardiac meds-aspirin, Plavix - continue on Coreg - continue po bumex 2 mg daily Acute on chronic kidney injury-stage IV- - hemodialysis catheter placed 02/18 - left - change to IV bumex to po 2 mg daily 02/20 - ff BMP- awaiting renal -- HD per nephrology- next - Wednesday Hypokalemia-- Improved - Potassium bath given during HD - FF BMP Chronic respiratory failure on chronic 2L NC O2 use . 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 -Continue on iron supplements - Per patient was supposed to be on Epogen however states that this was too expensive and can't afford it. -on IV Epogen - -- Diabetes type 2 well controlled - A1C - 6.5 - will ff blood sugars and monitor - cover with low sliding scale ADA diet - dietitian ff Hyperlipidemia. Continue on statins Baseline ambulates with a walker - History of S/P left TMA DVT prophylaxis SQ heaprin Activity- out of bed to chair - encourage patient- to up and ambulate with her walker PT consulted Discussed with the patient, nurse Results - Labs CBC & Chem 7: 02/16/18 06:22 02/21/18 05:40 Laboratory Results - last 24 hr 02/20/18 02/20/18 02/21/18 18:17 20:16 05:40 Sodium 137 Potassium 4.0 Chloride 99 Carbon Dioxide 27.5 Anion Gap 11 BUN 34 H Creatinine 2.90 H Estimated GFR 16 L POC Glucose 174 H 150 H Random Glucose 132 H Calcium 8.0 L 02/21/18 02/21/18 08:33 12:45 Sodium Potassium Chloride Carbon Dioxide Anion Gap BUN Creatinine Estimated GFR POC Glucose 146 H 285 H Random Glucose Calcium - Procedures 02/18- Dialysis catheter placement
--- NOTE | 2018-02-21 18:38 | P.PNNP ---
Subjective Interval history: Patient had dialysis on Wednesday he is feeling little better gets short of breath on exertion Physical Exam Vital signs: Vital Signs 02/20/18 20:00 02/21/18 00:00 02/21/18 04:00 Temperature 97.9 F 98.0 F 97.9 F Pulse Rate 80 74 71 Respiratory Rate 16 17 14 Blood Pressure 123/57 L 120/70 110/54 L Pulse Oximetry 100 100 97 02/21/18 08:00 02/21/18 09:00 02/21/18 09:30 Temperature 98.1 F Pulse Rate 66 64 66 Respiratory Rate 16 Blood Pressure 112/56 L Pulse Oximetry 100 02/21/18 12:34 02/21/18 17:45 Temperature 97.7 F 98.0 F Pulse Rate 64 70 Respiratory Rate 18 15 Blood Pressure 123/57 L 118/60 Pulse Oximetry 100 98 Intake & Output 02/20/18 02/21/18 02/21/18 18:59 06:59 18:59 Intake Total 720 / 720 480 / 480 1200 / 1200 Balance 720 / 720 480 / 480 1200 / 1200 Weight 73 kg Intake: Oral 720 / 720 480 / 480 1200 / 1200 Other: # Voids 2 1 2 Date of Last Bowel Movement 02/19/18 02/20/18 02/20/18 # Bowel Movements 3 - Constitutional no acute distress - Routine HEENT Exam Head: Present: normocephalic - Routine Neck Exam Present: supple - Routine Respiratory Exam Present: rales, rhonchi - Routine Cardiovascular Exam Present: S1, S2, irregular rhythm - Routine Abdominal Exam Present: soft, normoactive bowel sounds - Routine Extremities Exam Present: edema Assessment and Plan - Plan Acute kidney injury The patient has chronic kidney disease and there is some acute worsening. MOE possible related to urinary tract infection The last creatinine we have was 2.1-2.2. This was in September. Her BENNY was positive during the last time. Anti DNA DS normal Has history of hemodialysis in past for acute worsening. Creatinine at 2.60 ->2.16->2.9 Urinary output low Next hemodialysis in a.m. Avoid nephrotoxins Hemodialysis started on 02/18 Will follow urinary output, BMP, and watch for renal recovery Next planned hemodialysis will be on Wednesday unless otherwise needed Possibly will need preparation for skilled nursing HD
[2018-02-22 07:25] LABS: Baso % (Auto) 0.7 % (0.0-2.0); Eos # (Auto) 0.1 th/mm3 (0.0-0.4); Eos % (Auto) 2.2 % (0.0-4.0); Hematocrit 24.9 % (35.0-46.0); Hemoglobin 7.6 gm/dL (11.6-15.3); Lymph # (Auto) 0.9 th/mm3 (1.0-4.8); Lymph % (Auto) 16.8 % (9.0-44.0); Mean Corpuscular Hemoglobin 27.4 pg (27.0-34.0); Mean Corpuscular Volume 89.7 fL (80.0-100.0); Mean Platelet Volume 8.6 fL (7.0-11.0); Mono # (Auto) 0.7 th/mm3 (0.0-0.9); Mono % (Auto) 12.4 % (0.0-8.0); Neut # (Auto) 3.7 th/mm3 (1.8-7.7); Neut % (Auto) 67.9 % (16.0-70.0); Platelet Count 256 th/mm3 (150-450); Red Blood Count 2.78 mil/mm3 (4.00-5.30); White Blood Count 5.4 th/mm3 (4.0-11.0)
[2018-02-22 07:27] LABS: Mean Corpuscular HGB Conc 30.5 % (32.0-36.0)
[2018-02-22 07:57] LABS: Calcium 8.2 mg/dL (8.5-10.1); Potassium 3.7 meq/L (3.5-5.1)
[2018-02-22] MEDS: Insulin NovoLOG Aspart Correctional Sugar Inj SQ SCH ×3 (14:02→22:20)
[2018-02-22] MEDS: Senna/Docusate Sodium 8.6/50 MG Tablet PO SCH ×3 (14:08→20:29)
[2018-02-22] MEDS: Tiotropium Bromide 18 MCG/ACT Inhaler INH SCH (14:10)
--- NOTE | 2018-02-22 14:20 | P.PNIM ---
Subjective Interval history: breathing better. no c/o chest pain. Physical Exam Vital signs: Vital Signs 02/21/18 17:45 02/21/18 20:00 02/21/18 21:24 Temperature 98.0 F 97.9 F Pulse Rate 70 70 Respiratory Rate 15 16 Blood Pressure 118/60 121/72 Pulse Oximetry 98 94 L 97 02/22/18 00:00 02/22/18 04:00 02/22/18 08:00 Temperature 97.9 F 98.0 F 97.9 F Pulse Rate 74 67 72 Respiratory Rate 17 14 18 Blood Pressure 123/71 110/68 114/62 Pulse Oximetry 96 95 97 Intake & Output 02/21/18 02/22/18 02/22/18 18:59 06:59 18:59 Intake Total 1200 / 1200 Output Total 1500 / 1500 Balance 1200 / 1200 -1500 / -1500 Intake: Oral 1200 / 1200 Output: Hemodialysis Amount 1500 / 1500 Other: # Voids 2 Date of Last Bowel Movement 02/20/18 02/20/18 Narrative: Physical exam: GENERAL: Pleasant 72 yo F lying in bad, sob with exertion and with talking. CARDIOVASCULAR: Regular rate and rhythm 1/3 systolic murmur. RESPIRATORY: few bibasilar crackles GASTROINTESTINAL: Abdomen soft, non-tender, nondistended. MUSCULOSKELETAL: extremities with 2+ bilateral LE edema, left foot TMA stump healed well BACK: Nontender without obvious deformity. No CVA tenderness. Results - Labs CBC & Chem 7: 02/22/18 06:00 02/22/18 06:00 Laboratory Results - last 24 hr 02/21/18 02/21/18 02/22/18 18:14 20:59 06:00 WBC 5.4 RBC 2.78 L Hgb 7.6 L Hct 24.9 L MCV 89.7 MCH 27.4 MCHC 30.5 L RDW 20.0 H Plt Count 256 MPV 8.6 Neut % (Auto) 67.9 Lymph % (Auto) 16.8 [place] % (Auto) 12.4 H Eos % (Auto) 2.2 Baso % (Auto) 0.7 Neut # (Auto) 3.7 Lymph # (Auto) 0.9 L [place] # (Auto) 0.7 Eos # (Auto) 0.1 Baso # (Auto) 0.0 WBC Differential . Differential Comment Auto diff final Sodium Potassium Chloride Carbon Dioxide Anion Gap BUN Creatinine Estimated GFR POC Glucose 391 H 181 H Random Glucose Calcium 02/22/18 02/22/18 02/22/18 06:00 08:47 13:27 WBC RBC Hgb Hct MCV MCH MCHC RDW Plt Count MPV Neut % (Auto) Lymph % (Auto) [place] % (Auto) Eos % (Auto) Baso % (Auto) Neut # (Auto) Lymph # (Auto) [place] # (Auto) Eos # (Auto) Baso # (Auto) WBC Differential Differential Comment Sodium 137 Potassium 3.7 Chloride 99 Carbon Dioxide 26.0 Anion Gap 12 BUN 46 H Creatinine 3.09 H Estimated GFR 15 L POC Glucose 156 H 116 H Random Glucose 130 H Calcium 8.2 L - Procedures 02/18- Dialysis catheter placement Assessment and Plan - Plan 72-year-old female with known history of CAD status post cath sometime in 2017 with 100% occluded LAD, history of DANICA in November 2016, cardiomyopathy last ejection fraction on review was 25-30%, admitted for worsening shortness of breath. Worsening renal functions Acute on chronic systolic CHF exacerbation with cardiomyopathy with known ejection fraction of 35-30% - Improved with HD History of CAD status post CABG status post DANICA-LAD -Continue on home oxygen - Continue on cardiac meds-aspirin, Plavix, Coreg - continue po bumex 2 mg daily Acute on chronic kidney injury-stage IV- - hemodialysis catheter placed 02/18 - left - change to IV bumex to po 2 mg daily 02/20 - monitoring BMP- awaiting renal -- HD per nephrology-Getting HD today with next one likely Hypokalemia-- Improved - Potassium given during HD Chronic respiratory failure on chronic 2L NC O2 use . 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 -Continue on iron supplements - Per patient was supposed to be on Epogen however states that this was too expensive and can't afford it. -on IV Epogen - M-- Diabetes type 2 well controlled - A1C - 6.5 - blood sugars monitoring with SSI - cover with low sliding scale ADA diet - dietitian following Hyperlipidemia. Continue on statins Baseline ambulates with a walker - History of S/P left TMA DVT prophylaxis SQ heparin Activity- out of bed to chair - encourage patient- to up and ambulate with her walker PT consulted Discharge Planning: may need OP HD pending clinical status.
--- NOTE | 2018-02-22 15:19 | P.PNNP ---
Subjective Interval history: Patient feels better slight cough Physical Exam Vital signs: Vital Signs 02/21/18 17:45 02/21/18 20:00 02/21/18 21:24 Temperature 98.0 F 97.9 F Pulse Rate 70 70 Respiratory Rate 15 16 Blood Pressure 118/60 121/72 Pulse Oximetry 98 94 L 97 02/22/18 00:00 02/22/18 04:00 02/22/18 08:00 Temperature 97.9 F 98.0 F 97.9 F Pulse Rate 74 67 72 Respiratory Rate 17 14 18 Blood Pressure 123/71 110/68 114/62 Pulse Oximetry 96 95 97 Intake & Output 02/21/18 02/22/18 02/22/18 18:59 06:59 18:59 Intake Total 1200 / 1200 Output Total 1500 / 1500 Balance 1200 / 1200 -1500 / -1500 Intake: Oral 1200 / 1200 Output: Hemodialysis Amount 1500 / 1500 Other: # Voids 2 Date of Last Bowel Movement 02/20/18 02/20/18 - Constitutional no acute distress - Routine HEENT Exam Head: Present: normocephalic - Routine Respiratory Exam Present: decreased breath sounds - Routine Cardiovascular Exam Present: S1, S2, irregular rhythm - Routine Abdominal Exam Present: soft - Routine Extremities Exam Present: full ROM Assessment and Plan - Plan Acute kidney injury The patient has chronic kidney disease and there is some acute worsening. MOE possible related to urinary tract infection The last creatinine we have was 2.1-2.2. This was in September. Her BENNY was positive during the last time. Anti DNA DS normal Has history of hemodialysis in past for acute worsening. Creatinine higher Urinary output low Next hemodialysis in a.m. Avoid nephrotoxins Hemodialysis done earlier UF 1.5. Will follow urinary output, BMP, and watch for renal recovery Next planned hemodialysis will be on Possibly will need preparation for snf HD Stop aspirin and Plavix and plan for permacath
[2018-02-22] MEDS: Acetaminophen 325 MG Tablet PO PRN (20:30)
[2018-02-23] MEDS: Insulin NovoLOG Aspart Correctional Sugar Inj SQ SCH ×4 (08:28→20:28)
[2018-02-23] MEDS: Senna/Docusate Sodium 8.6/50 MG Tablet PO SCH ×2 (08:29→20:28)
[2018-02-23] MEDS: Tiotropium Bromide 18 MCG/ACT Inhaler INH SCH (08:29)
--- NOTE | 2018-02-23 11:41 | P.PNIM ---
Subjective Interval history: Breathing better and not worsened. Not making much urine. Underwent dialysis yesterday. Understands likely she may need future hemodialysis and a permacath is likely being ordered by Dr. Cano. Physical Exam Vital signs: Vital Signs 02/22/18 16:00 02/22/18 20:00 02/23/18 00:00 Temperature 98.1 F 97.9 F 97.9 F Pulse Rate 76 78 74 Respiratory Rate 18 16 16 Blood Pressure 110/52 L 130/60 133/65 Pulse Oximetry 100 98 96 02/23/18 04:00 02/23/18 08:00 Temperature 98.0 F 98.6 F Pulse Rate 70 66 Respiratory Rate 14 18 Blood Pressure 120/60 113/58 L Pulse Oximetry 95 100 Intake & Output 02/22/18 02/23/18 02/23/18 18:59 06:59 18:59 Intake Total 720 / 720 Output Total 1500 / 1500 25 / Balance -780 / -780 -25 / -25 Weight 73 kg Intake: Oral 720 / 720 Output: Urine Hemodialysis Amount 1500 / 1500 Other: # Voids 1 Date of Last Bowel Movement 02/20/18 02/22/18 02/22/18 Narrative: Physical exam: GENERAL: Pleasant 72 yo F lying in bad, sob with exertion and with talking. CARDIOVASCULAR: Regular rate and rhythm 1/3 systolic murmur. RESPIRATORY: few bibasilar crackles GASTROINTESTINAL: Abdomen soft, non-tender, nondistended. MUSCULOSKELETAL: extremities with 2+ bilateral LE edema, left foot TMA stump healed well BACK: Nontender without obvious deformity. No CVA tenderness. Results - Labs CBC & Chem 7: 02/22/18 06:00 02/22/18 06:00 Laboratory Results - last 24 hr 02/22/18 02/22/18 02/23/18 13:27 18:25 08:18 POC Glucose 116 H 290 H 91 - Procedures 02/18- Dialysis catheter placement Assessment and Plan - Plan 72-year-old female with known history of CAD status post cath sometime in 2017 with 100% occluded LAD, history of DANICA in November 2016, cardiomyopathy last ejection fraction on review was 25-30%, admitted for worsening shortness of breath. Worsening renal functions Acute on chronic systolic CHF exacerbation with cardiomyopathy with known ejection fraction of 35-30% - Improved with HD History of CAD status post CABG status post DANICA-LAD -Continue on home oxygen - Continue on cardiac meds-aspirin, Plavix, Coreg - continue po bumex 2 mg daily Acute on chronic kidney injury-stage IV- - hemodialysis catheter placed 02/18 - left - change to IV bumex to po 2 mg daily 02/20 - monitoring BMP- awaiting renal -- HD per nephrology-2 states that since and Wednesday Likely will need long-term hemodialysis as an outpatient. And consideration permacath to be placed. Hypokalemia-- Improved - Potassium given during HD Chronic respiratory failure on chronic 2L NC O2 use . 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 -Continue on iron supplements - Per patient was supposed to be on Epogen however states that this was too expensive and can't afford it. -on IV Epogen - M-W-F Diabetes type 2 well controlled - A1C - 6.5 - blood sugars monitoring with SSI - cover with low sliding scale ADA diet - dietitian following Hyperlipidemia. Continue on statins Baseline ambulates with a walker - History of S/P left TMA DVT prophylaxis SQ heparin Activity- out of bed to chair - encourage patient- to up and ambulate with her walker PT consulted Discharge Planning: Likely will need need OP HD pending clinical status per nephrology.
--- NOTE | 2018-02-23 19:31 | P.PNNP ---
Subjective Interval history: Patient feels tired other than that has slight cough Physical Exam Vital signs: Vital Signs 02/22/18 20:00 02/23/18 00:00 02/23/18 04:00 Temperature 97.9 F 97.9 F 98.0 F Pulse Rate 78 74 70 Respiratory Rate 16 16 14 Blood Pressure 130/60 133/65 120/60 Pulse Oximetry 98 96 95 02/23/18 08:00 02/23/18 09:00 02/23/18 12:00 Temperature 98.6 F 98.3 F Pulse Rate 66 68 66 Respiratory Rate 18 18 Blood Pressure 113/58 L 117/56 L Pulse Oximetry 100 96 02/23/18 15:44 02/23/18 16:00 Temperature 98 F Pulse Rate 73 Respiratory Rate 18 Blood Pressure 117/56 L Pulse Oximetry 97 100 Intake & Output 02/23/18 02/23/18 02/24/18 06:59 18:59 06:59 Intake Total 1260 / 1260 Output Total 25 / 25 Balance -25 / -25 1260 / 1260 Weight 73 kg Intake: Oral 1260 / 1260 Output: Urine 25 / 25 Other: # Voids 1 1 Date of Last Bowel Movement 02/22/18 02/22/18 - Constitutional no acute distress - Routine HEENT Exam Head: Present: normocephalic - Routine Respiratory Exam Present: decreased breath sounds - Routine Cardiovascular Exam Present: S1, S2 (At bases) - Routine Abdominal Exam Present: soft, normoactive bowel sounds - Routine Extremities Exam Present: full ROM - Routine Neurological Exam Present: alert, oriented X3 Assessment and Plan - Plan Acute kidney injury The patient has chronic kidney disease and there is some acute worsening. MOE possible related to urinary tract infection The last creatinine we have was 2.1-2.2. This was in September. Her BENNY was positive during the last time. Anti DNA DS normal Has history of hemodialysis in past for acute worsening. Creatinine higher Urinary output low Next hemodialysis in a.m. Avoid nephrotoxins Hemodialysis next on On Epogen 10,000 hemoglobin 7.6 Will follow urinary output, BMP, and watch for renal recovery Next planned hemodialysis will be on Patient agreed to the assisted HD Off aspirin and Plavix and plan for permacath by Wednesday
[2018-02-23] MEDS: Acetaminophen 325 MG Tablet PO PRN (20:35)
[2018-02-24] MEDS: Acetaminophen 325 MG Tablet PO PRN (01:52)
[2018-02-24 07:55] LABS: Calcium 7.6 mg/dL (8.5-10.1); Carbon Dioxide 30.3 meq/L (21.0-32.0); Potassium 3.7 meq/L (3.5-5.1)
[2018-02-24] MEDS: Senna/Docusate Sodium 8.6/50 MG Tablet PO SCH ×2 (08:28→20:14)
[2018-02-24] MEDS: Tiotropium Bromide 18 MCG/ACT Inhaler INH SCH (11:25)
--- NOTE | 2018-02-24 11:35 | P.PNIM ---
Subjective Interval history: Doing okay. Had a rough night last night did not sleep much. No complaints of shortness of breath or chest pain. Open to having outpatient hemodialysis. Physical Exam Vital signs: Vital Signs 02/23/18 12:00 02/23/18 15:44 02/23/18 16:00 Temperature 98.3 F 98 F Pulse Rate 66 73 Respiratory Rate 18 18 Blood Pressure 117/56 L 117/56 L Pulse Oximetry 96 97 100 02/23/18 20:00 02/23/18 20:25 02/24/18 00:00 Temperature 97.8 F 99.6 F Pulse Rate 77 80 Respiratory Rate 16 16 Blood Pressure 120/68 115/56 L Pulse Oximetry 95 96 95 02/24/18 03:49 02/24/18 04:00 02/24/18 04:11 Temperature 98.9 F Pulse Rate 73 69 Respiratory Rate 16 14 Blood Pressure 110/62 Pulse Oximetry 94 L 02/24/18 08:00 02/24/18 09:00 Temperature 96.5 F L Pulse Rate 67 67 Respiratory Rate 24 Blood Pressure 123/56 L Pulse Oximetry 98 Intake & Output 02/23/18 02/24/18 02/24/18 18:59 06:59 18:59 Intake Total 1260 / 1260 580 / 580 Output Total 75 / 75 Balance 1260 / 1260 505 / 505 Weight 73 kg Intake: Oral 1260 / 1260 580 / 580 Output: Urine 75 / 75 Other: # Voids 1 Date of Last Bowel Movement 02/22/18 02/24/18 02/24/18 # Bowel Movements 1 Narrative: Physical exam: GENERAL: Pleasant 72 yo F lying in bad, sob with exertion and with talking. CARDIOVASCULAR: Regular rate and rhythm 1/3 systolic murmur. RESPIRATORY: few bibasilar crackles GASTROINTESTINAL: Abdomen soft, non-tender, nondistended. MUSCULOSKELETAL: extremities with 2+ bilateral LE edema, left foot TMA stump healed well BACK: Nontender without obvious deformity. No CVA tenderness. Results - Labs CBC & Chem 7: 02/22/18 06:00 02/24/18 06:06 Laboratory Results - last 24 hr 02/23/18 02/23/18 02/23/18 13:46 18:21 20:18 Sodium Potassium Chloride Carbon Dioxide Anion Gap BUN Creatinine Estimated GFR POC Glucose 165 H 248 H 261 H Random Glucose Calcium 02/24/18 06:06 Sodium 136 Potassium 3.7 Chloride 100 Carbon Dioxide 30.3 Anion Gap 6 BUN 31 H Creatinine 2.89 H Estimated GFR 16 L POC Glucose Random Glucose 138 H Calcium 7.6 L - Procedures 02/18- Dialysis catheter placement Assessment and Plan - Plan 72-year-old female with known history of CAD status post cath sometime in 2017 with 100% occluded LAD, history of DANICA in November 2016, cardiomyopathy last ejection fraction on review was 25-30%, admitted for worsening shortness of breath. Worsening renal functions Acute on chronic systolic CHF exacerbation with cardiomyopathy with known ejection fraction of 35-30% - Improved with HD History of CAD status post CABG status post DANICA-LAD -Continue on home oxygen - Continue on cardiac meds-aspirin, Plavix will be on hold for permacath placement tomorrow continue po bumex 2 mg daily Continue with Coreg. Acute on chronic kidney injury-stage IV- - hemodialysis catheter placed 02/18 - left - change to IV bumex to po 2 mg daily 02/20 - monitoring BMP- awaiting renal -- HD per nephrology-Wednesday, , Wednesday Likely will need long-term hemodialysis as an outpatient. And consideration permacath to be placed. Hypokalemia-- resolved. Chronic respiratory failure on chronic 2L NC O2 use . 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 -Continue on iron supplements - Per patient was supposed to be on Epogen however states that this was too expensive and can't afford it. -on IV Epogen - M-W-F Diabetes type 2 well controlled - A1C - 6.5 - blood sugars monitoring with SSI - cover with low sliding scale ADA diet - dietitian following Hyperlipidemia. Continue on statins Baseline ambulates with a walker - History of S/P left TMA DVT prophylaxis SQ heparin Activity- out of bed to chair - encourage patient- to up and ambulate with her walker PT consulted Discharge Planning: Likely will need need OP HD pending clinical status per nephrology.
[2018-02-24] MEDS: Insulin NovoLOG Aspart Correctional Sugar Inj SQ SCH ×4 (12:24→20:26)
--- NOTE | 2018-02-24 15:17 | P.PNNP ---
Subjective Interval history: Patient feels tired and hemodialysis completed Physical Exam Vital signs: Vital Signs 02/23/18 15:44 02/23/18 16:00 02/23/18 20:00 Temperature 98 F 97.8 F Pulse Rate 73 77 Respiratory Rate 18 16 Blood Pressure 117/56 L 120/68 Pulse Oximetry 97 100 95 02/23/18 20:25 02/24/18 00:00 02/24/18 03:49 Temperature 99.6 F Pulse Rate 80 Respiratory Rate 16 16 Blood Pressure 115/56 L Pulse Oximetry 96 95 02/24/18 04:00 02/24/18 04:11 02/24/18 08:00 Temperature 98.9 F 96.5 F L Pulse Rate 73 69 67 Respiratory Rate 14 24 Blood Pressure 110/62 123/56 L Pulse Oximetry 94 L 98 02/24/18 09:00 02/24/18 14:00 Temperature 97.5 F L Pulse Rate 67 76 Respiratory Rate 23 Blood Pressure 131/63 Pulse Oximetry 100 Intake & Output 02/23/18 02/24/18 02/24/18 18:59 06:59 18:59 Intake Total 1260 / 1260 580 / 580 Output Total 75 / 75 Balance 1260 / 1260 505 / 505 Weight 73 kg Intake: Oral 1260 / 1260 580 / 580 Output: Urine 75 / 75 Other: # Voids 1 Date of Last Bowel Movement 02/22/18 02/24/18 02/24/18 # Bowel Movements 1 - Constitutional no acute distress - Routine Neck Exam Present: supple - Routine Respiratory Exam Present: CTA bilaterally - Routine Cardiovascular Exam Present: RRR - Routine Abdominal Exam Present: soft, normoactive bowel sounds - Routine Extremities Exam Present: edema Assessment and Plan - Plan Acute kidney injury The patient has chronic kidney disease and there is some acute worsening. MOE possible related to urinary tract infection The last creatinine we have was 2.1-2.2. This was in September. Her BENNY was positive during the last time. Anti DNA DS normal Has history of hemodialysis in past for acute worsening. Creatinine higher Urinary output low Next hemodialysis on Wednesday Avoid nephrotoxins Hemodialysis On Epogen 10,000 hemoglobin 7.6 Hemodialysis done today 2 L Patient agreed to the termite technician HD Off aspirin and Plavix and plan for permacath by Wednesday
[2018-02-25 06:15] LABS: Baso % (Auto) 0.9 % (0.0-2.0); Eos # (Auto) 0.1 th/mm3 (0.0-0.4); Eos % (Auto) 2.2 % (0.0-4.0); Hematocrit 23.9 % (35.0-46.0); Hemoglobin 7.3 gm/dL (11.6-15.3); Lymph # (Auto) 0.9 th/mm3 (1.0-4.8); Mean Corpuscular Volume 88.6 fL (80.0-100.0); Mean Platelet Volume 8.5 fL (7.0-11.0); Mono # (Auto) 0.6 th/mm3 (0.0-0.9); Neut # (Auto) 2.8 th/mm3 (1.8-7.7); Neut % (Auto) 62.9 % (16.0-70.0); Platelet Count 266 th/mm3 (150-450); Red Cell Distribution Width 20.6 % (11.6-17.2); White Blood Count 4.4 th/mm3 (4.0-11.0)
[2018-02-25 06:21] LABS: Mean Corpuscular HGB Conc 30.5 % (32.0-36.0)
[2018-02-25 06:26] LABS: Activated Partial Thrombo Time 28.2 sec (24.3-30.1); INR 1.2 Ratio; Prothrombin Time 12.3 sec (9.8-11.6)
[2018-02-25 06:40] LABS: Carbon Dioxide 29.1 meq/L (21.0-32.0); Potassium 3.8 meq/L (3.5-5.1)
[2018-02-25] MEDS: Insulin NovoLOG Aspart Correctional Sugar Inj SQ SCH ×4 (08:27→17:38)
[2018-02-25] MEDS: Senna/Docusate Sodium 8.6/50 MG Tablet PO SCH ×2 (08:55→22:17)
[2018-02-25] MEDS ORDERED: ceFAZolin 2 GM Premix Inj 2 GM/50 ML PIGGYBACK IV.SIG SCH (10:00)
[2018-02-25] MEDS ORDERED: Vancomycin Inj 1,000 MG in Sodium Chlor 0.9% Inj 250 ML IV.SIG SCH (10:00)
[2018-02-25] MEDS ORDERED: fentaNYL Citrate Inj 100 MCG/2 ML Ampul ONE (10:36)
[2018-02-25] MEDS ORDERED: Lidocaine 1%/Epinephrine 1:100,000 Inj 30 ML Vial ONE (11:03)
[2018-02-25] MEDS ORDERED: *Heparin 10,000 UNITS/10 ML Vial Periprocedural ONLY ONE (11:03)
[2018-02-25] MEDS: Tiotropium Bromide 18 MCG/ACT Inhaler INH SCH (11:08)
--- NOTE | 2018-02-25 12:48 | IR ---
EXAM DATE: 02/25/2018 12:30 PM EDT AGE/SEX: 72 years / Female INDICATIONS: CLINICAL DATA: This is the patient's encounter. Patient reports that signs and symptoms have been pr esent for and indicates a pain score of . MEDICAL/SURGICAL HISTORY: COMPARISON: No prior exams available for comparison. IMAGE SERIES: ACCESS SITE: DEVICE(S): . . PROCEDURE: 1. Temporary central venous catheter removal. The prescribed catheter was removed intact and hemostasis was achieved with direct pressure. The sit e was dressed appropriately. The patient tolerated the procedure well. CONCLUSION: Uncomplicated catheter removal. Electronically signed by: Castillo Monroy MD 02/25/2018 12:46 PM EDT
--- NOTE | 2018-02-25 12:50 | IR ---
EXAM DATE: 02/25/2018 12:31 PM EDT AGE/SEX: 72 years / Female INDICATIONS: Patient with vas cath. Needs permacath for dialysis. Renal failure. CLINICAL DATA: This is the patient's subsequent encounter. Patient reports that signs and symptoms h ave been present for 1 week and indicates a pain score of 3/10. MEDICAL/SURGICAL HISTORY: Chronic renal insufficiency. Congestive heart failure. Chronic obst ructive pulmonary disease. DM, anemia, CAD,cardiomyopathy, cholecystomy, CABG x3 CABG. vas cath lef t,cholecystectomy COMPARISON: No prior exams available for comparison. FLUORO TIME (min): 1.44 IMAGE SERIES: 2 ACCESS SITE: Right subclavian vein SEDATION TIME (min): 30 MEDICATION(S): 0.5 mg midazolam (Versed) IV 25 mcg hydromorphone (Dilaudid) IV Prophylactic antibiotics were administered with appropriate pre-procedure timing. Vancomycin within 2 hrs of procedure, Ancef (or alternative) within 1 hr of procedure. DEVICE(S): 15 FR 19 CM SINGH CATH . . PROCEDURE: 1. Ultrasound-guided venipuncture. 2. PermaCath placement. 3. Conscious sedation with continuous EKG and oximetry monitoring. The risks, benefits and alternatives to the procedure were explained and verbal and written consent w as obtained. The site was prepped in sterile fashion. Full sterile technique was used, including ca p, mask, sterile gloves and gown and a large sterile sheet. Hand hygiene and 2% chlorhexidine and/or betadine/alcohol prep was utilized per protocol for cutaneous antisepsis. Sterile gel and sterile p robe cover were utilized for ultrasound guidance. The skin and subcutaneous tissues were infiltrated with local anesthetic solution. With ultrasound and fluoroscopic guidance a dermatotomy was created over the prescribed vein. A micr opuncture set was used to access the right subclavian vein and serial dilatation was performed to acc ept the prescribed length catheter. A subcutaneous tunnel was created in a retrograde fashion the ca theter was pulled through the tunnel. The catheter was flushed and assembled and locked with heparin . The catheter was sutured in place. Conscious sedation was performed with the prescribed dosages and duration as above in the presence of an independent trained radiology nurse to assist in the monitoring of the patient. EKG and oximetry remained stable throughout the procedure. The patient tolerated the procedure well and there were n o complications. The patient was sent to post anesthesia recovery in stable condition. CONCLUSION: Uncomplicated ultrasound and fluoroscopic guided dialysis PermaCath placement as above. Electronically signed by: Castillo Monroy MD 02/25/2018 12:49 PM EDT
--- NOTE | 2018-02-25 14:48 | P.DIET ---
Nutritional Evaluation Type of nutrition evaluation: initial Screening comments: MDC for diet education acknowledged. Pt out of room at a procedure when visited and she is npo today. She continues to need dialysis. RD will follow and instruct on diet at a later date.
--- NOTE | 2018-02-25 15:18 | P.PNIM ---
Subjective Interval history: Doing okay after procedure. No other concerns at this time. Wants to go home when outpatient hemodialysis is arranged. Physical Exam Vital signs: Vital Signs 02/24/18 17:35 02/24/18 20:00 02/24/18 21:31 Temperature 98.2 F 98.2 F Pulse Rate 74 76 Respiratory Rate 22 16 Blood Pressure 124/59 L 130/65 Pulse Oximetry 94 L 94 L 97 02/24/18 22:56 02/25/18 00:00 02/25/18 04:00 Temperature 98.3 F 98.2 F Pulse Rate 75 76 71 Respiratory Rate 16 14 Blood Pressure 112/56 L 110/62 Pulse Oximetry 95 96 02/25/18 05:14 02/25/18 08:00 02/25/18 08:38 Temperature 98.3 F 98.1 F Pulse Rate 71 73 73 Respiratory Rate 14 28 H Blood Pressure 117/59 L 121/56 L Pulse Oximetry 96 100 02/25/18 12:05 02/25/18 12:20 02/25/18 12:50 Temperature 97.4 F L Pulse Rate 68 69 69 Respiratory Rate 18 18 18 Blood Pressure 123/62 116/54 L 113/51 L Pulse Oximetry 02/25/18 13:20 Temperature Pulse Rate 70 Respiratory Rate 20 Blood Pressure 115/52 L Pulse Oximetry Intake & Output 02/24/18 02/25/18 02/25/18 18:59 06:59 18:59 Intake Total 1520 / 1520 480 / 480 Output Total 50 / 50 Balance 1520 / 1520 430 / 430 Weight 73 kg Intake: Oral 1520 / 1520 Oral Supplement 480 / 480 Output: Urine 50 / 50 Other: Post Void Residual 50 # Voids 1 Date of Last Bowel Movement 02/24/18 02/24/18 02/24/18 # Bowel Movements 1 Narrative: Physical exam: GENERAL: Pleasant 72 yo F lying in bad, sob with exertion and with talking. CHEST Wall: Permacath in place CARDIOVASCULAR: Regular rate and rhythm 1/3 systolic murmur. RESPIRATORY: Relatively clear to auscultation bilaterally GASTROINTESTINAL: Abdomen soft, non-tender, nondistended. MUSCULOSKELETAL: extremities with 2+ bilateral LE edema, left foot TMA stump healed well Results - Labs CBC & Chem 7: 02/25/18 04:35 02/25/18 04:35 Laboratory Results - last 24 hr 02/24/18 02/24/18 02/25/18 17:32 20:13 04:35 WBC 4.4 RBC 2.70 L Hgb 7.3 L Hct 23.9 L MCV 88.6 MCH 27.0 MCHC 30.5 L RDW 20.6 H Plt Count 266 MPV 8.5 Neut % (Auto) 62.9 Lymph % (Auto) 21.0 Burnett % (Auto) 13.0 H Eos % (Auto) 2.2 Baso % (Auto) 0.9 Neut # (Auto) 2.8 Lymph # (Auto) 0.9 L Burnett # (Auto) 0.6 Eos # (Auto) 0.1 Baso # (Auto) 0.0 WBC Differential . Differential Comment Auto diff final PT INR APTT Sodium Potassium Chloride Carbon Dioxide Anion Gap BUN Creatinine Estimated GFR POC Glucose 186 H 153 H Random Glucose Calcium 02/25/18 02/25/18 04:35 04:35 WBC RBC Hgb Hct MCV MCH MCHC RDW Plt Count MPV Neut % (Auto) Lymph % (Auto) Burnett % (Auto) Eos % (Auto) Baso % (Auto) Neut # (Auto) Lymph # (Auto) Burnett # (Auto) Eos # (Auto) Baso # (Auto) WBC Differential Differential Comment PT 12.3 H INR 1.2 APTT 28.2 Sodium 139 Potassium 3.8 Chloride 100 Carbon Dioxide 29.1 Anion Gap 10 BUN 19 H Creatinine 2.16 H Estimated GFR 22 L POC Glucose Random Glucose 121 H Calcium 8.0 L - Imaging Impressions Central Venous Line 02/25/18 09:00 CONCLUSION: Uncomplicated ultrasound and fluoroscopic guided dialysis PermaCath placement as above. Tube Removal 02/25/18 11:41 CONCLUSION: Uncomplicated catheter removal. - Procedures 02/18- Dialysis catheter placement Assessment and Plan - Plan 72-year-old female with known history of CAD status post cath sometime in 2017 with 100% occluded LAD, history of DANICA in November 2016, cardiomyopathy last ejection fraction on review was 25-30%, admitted for worsening shortness of breath. Worsening renal functions Acute on chronic systolic CHF exacerbation with cardiomyopathy with known ejection fraction of 35-30% - Improved with HD History of CAD status post CABG status post DANICA-LAD -Continue on home oxygen - Continue on cardiac meds-aspirin, Plavix will be on hold for permacath placement tomorrow continue po bumex 2 mg daily Continue with Coreg. Acute on chronic kidney injury-stage IV- - hemodialysis catheter placed 02/18 - left - change to IV bumex to po 2 mg daily 02/20 - monitoring BMP- awaiting renal -- HD per nephrology-Wednesday, , Wednesday Likely will need long-term hemodialysis as an outpatient. Placement of permacath today and awaiting outpatient hemodialysis to be arranged prior to discharge to home. Hypokalemia-- resolved. Chronic respiratory failure on chronic 2L NC O2 use . 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 -Continue on iron supplements - Per patient was supposed to be on Epogen however states that this was too expensive and can't afford it. -on IV Epogen - M-W- Diabetes type 2 well controlled - A1C - 6.5 - blood sugars monitoring with SSI - cover with low sliding scale ADA diet - dietitian following Hyperlipidemia. Continue on statins Baseline ambulates with a walker - History of S/P left TMA DVT prophylaxis SQ heparin Activity- out of bed to chair - encourage patient- to up and ambulate with her walker PT consulted Discharge Planning: Likely will need need OP HD; awaiting arrangements for outpatient hemodialysis to be made prior to discharge to home.
--- NOTE | 2018-02-25 16:45 | P.PNNP ---
Subjective Interval history: Patient had permacath placed earlier Physical Exam Vital signs: Vital Signs 02/24/18 17:35 02/24/18 20:00 02/24/18 21:31 Temperature 98.2 F 98.2 F Pulse Rate 74 76 Respiratory Rate 22 16 Blood Pressure 124/59 L 130/65 Pulse Oximetry 94 L 94 L 97 02/24/18 22:56 02/25/18 00:00 02/25/18 04:00 Temperature 98.3 F 98.2 F Pulse Rate 75 76 71 Respiratory Rate 16 14 Blood Pressure 112/56 L 110/62 Pulse Oximetry 95 96 02/25/18 05:14 02/25/18 08:00 02/25/18 08:38 Temperature 98.3 F 98.1 F Pulse Rate 71 73 73 Respiratory Rate 14 28 H Blood Pressure 117/59 L 121/56 L Pulse Oximetry 96 100 02/25/18 12:05 02/25/18 12:20 02/25/18 12:50 Temperature 97.4 F L Pulse Rate 68 69 69 Respiratory Rate 18 18 18 Blood Pressure 123/62 116/54 L 113/51 L Pulse Oximetry 02/25/18 13:20 02/25/18 15:23 Temperature 97.2 F L Pulse Rate 70 75 Respiratory Rate 20 24 Blood Pressure 115/52 L 108/58 L Pulse Oximetry 98 Intake & Output 02/24/18 02/25/18 02/25/18 18:59 06:59 18:59 Intake Total 1520 / 1520 480 / 480 240 / 240 Output Total 50 / 50 0 / 0 Balance 1520 / 1520 430 / 430 240 / 240 Weight 73 kg Intake: Oral 1520 / 1520 240 / 240 Oral Supplement 480 / 480 Output: Urine 50 / 50 Stool 0 / 0 Other: Post Void Residual 50 # Voids 1 0 Date of Last Bowel Movement 02/24/18 02/24/18 02/24/18 # Bowel Movements 1 - Constitutional no acute distress - Routine HEENT Exam Head: Present: normocephalic - Routine Neck Exam Present: supple - Routine Respiratory Exam Present: decreased breath sounds - Routine Cardiovascular Exam Present: RRR (At bases) - Routine Abdominal Exam Present: soft, normoactive bowel sounds - Routine Exam External: Present: swelling Assessment and Plan - Assessment (1) End stage renal disease on dialysis Code(s): N18.6 - End stage renal disease; Z99.2 - Dependence on renal dialysis Status: Acute - Plan ESRD The patient has chronic kidney disease and there is some acute worsening. MOE possible related to urinary tract infection Has history of hemodialysis in past for acute worsening. Creatinine higher Urinary output low Next hemodialysis on Wednesday Status post permacath placement Avoid nephrotoxins Hemodialysis On Epogen 10,000 hemoglobin 7.3 Hemodialysis next tomorrow patient has BMP ordered Patient agreed to the exterminator termite HD Restart aspirin and Plavix and plan for permacath by Wednesday
[2018-02-26] MEDS: Acetaminophen 325 MG Tablet PO PRN (03:23)
[2018-02-26 08:26] LABS: Calcium 7.9 mg/dL (8.5-10.1); Carbon Dioxide 29.8 meq/L (21.0-32.0)
--- NOTE | 2018-02-26 10:46 | P.PNIM ---
Subjective Interval history: Patient seen during dialysis, PermCath placed yesterday, no pain on PermCath site. No complaints. Denies any chest pain or shortness of breath. Physical Exam Vital signs: Vital Signs 02/25/18 12:05 02/25/18 12:20 02/25/18 12:50 Temperature 97.4 F L Pulse Rate 68 69 69 Respiratory Rate 18 18 18 Blood Pressure 123/62 116/54 L 113/51 L Pulse Oximetry 02/25/18 13:20 02/25/18 15:23 02/25/18 16:00 Temperature 97.2 F L 96.5 F L Pulse Rate 70 75 70 Respiratory Rate 20 24 18 Blood Pressure 115/52 L 108/58 L 123/68 Pulse Oximetry 98 98 02/25/18 18:34 02/25/18 21:50 02/26/18 00:10 Temperature 97.6 F 98.6 F Pulse Rate 72 74 Respiratory Rate 16 18 Blood Pressure 124/58 L 107/53 L Pulse Oximetry 97 95 96 02/26/18 03:29 02/26/18 08:00 Temperature 97.7 F 98.4 F Pulse Rate 71 66 Respiratory Rate 17 17 Blood Pressure 109/56 L 106/53 L Pulse Oximetry 97 91 L Intake & Output 02/25/18 02/26/18 02/26/18 18:59 06:59 18:59 Intake Total 240 / 240 480 / 480 Output Total 0 / 0 Balance 240 / 240 480 / 480 Weight 73 kg Intake: Oral 240 / 240 480 / 480 Output: Stool 0 / 0 Other: # Voids 0 1 Date of Last Bowel Movement 02/24/18 02/26/18 # Bowel Movements 1 Narrative: GENERAL: Pleasant 72 yo F lying in bad CHEST Wall: Permacath in place CARDIOVASCULAR: Regular rate and rhythm 1/3 systolic murmur. RESPIRATORY: Clear breath sounds. GASTROINTESTINAL: Abdomen soft, non-tender, nondistended. MUSCULOSKELETAL: extremities with 1+ bilateral LE edema Neurological: Alert awake and oriented 3, no focal deficits. Results - Labs CBC & Chem 7: 02/25/18 04:35 02/26/18 06:31 Laboratory Results - last 24 hr 02/25/18 02/25/18 02/26/18 17:24 22:24 06:31 Sodium 138 Potassium 4.0 Chloride 99 Carbon Dioxide 29.8 Anion Gap 9 BUN 29 H Creatinine 2.91 H Estimated GFR 16 L POC Glucose 236 H 170 H Random Glucose 90 Calcium 7.9 L 02/26/18 07:34 Sodium Potassium Chloride Carbon Dioxide Anion Gap BUN Creatinine Estimated GFR POC Glucose 103 Random Glucose Calcium - Imaging Impressions Central Venous Line 02/25/18 09:00 CONCLUSION: Uncomplicated ultrasound and fluoroscopic guided dialysis PermaCath placement as above. Tube Removal 02/25/18 11:41 CONCLUSION: Uncomplicated catheter removal. - Procedures 02/18- Dialysis catheter placement Assessment and Plan - Plan 72-year-old female with known history of CAD status post cath sometime in 2017 with 100% occluded LAD, history of DANICA in November 2016, cardiomyopathy last ejection fraction on review was 25-30%, admitted for worsening shortness of breath. Now with worsening renal function, will likely need dialysis as outpatient. Acute on chronic systolic CHF exacerbation with cardiomyopathy with known ejection fraction of 35-30% - Improved with HD - History of CAD status post CABG status post DANICA-LAD - Continue aspirin, Plavix, Bumex and Coreg. Acute on chronic kidney injury, now dialysis dependent - hemodialysis catheter placed 02/18, status post PermCath placement 02/25/2018.. -IV Bumex switched to Bumex 2 mg daily. Continue dialysis per nephrology Wednesday and Saturdays. Will need long-term dialysis. Hypokalemia-- resolved. Chronic respiratory failure on chronic 2L NC O2 use . 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 UTI- UA with pyuria - final C and S, no significant growth, status post 5 days of ceftriaxone. Anemia of chronic kidney disease. -Continue on iron supplements, cannot afford Epogen as outpatient, continue IV Epogen MWF while in-house. Diabetes type 2 well controlled - A1C - 6.5 - blood sugars monitoring with SSI Hyperlipidemia. Continue on statins Baseline ambulates with a walker - History of S/P left TMA DVT prophylaxis SQ heparin Activity- out of bed to chair - encourage patient- to up and ambulate with her walker PT consulted Discharge Planning: Likely will need need OP HD; awaiting arrangements for outpatient hemodialysis to be made prior to discharge to home.
--- NOTE | 2018-02-26 11:51 | P.PNNP ---
Subjective Interval history: Patient seen during hemodialysis tolerating it well Physical Exam Vital signs: Vital Signs 02/25/18 12:05 02/25/18 12:20 02/25/18 12:50 Temperature 97.4 F L Pulse Rate 68 69 69 Respiratory Rate 18 18 18 Blood Pressure 123/62 116/54 L 113/51 L Pulse Oximetry 02/25/18 13:20 02/25/18 15:23 02/25/18 16:00 Temperature 97.2 F L 96.5 F L Pulse Rate 70 75 70 Respiratory Rate 20 24 18 Blood Pressure 115/52 L 108/58 L 123/68 Pulse Oximetry 98 98 02/25/18 18:34 02/25/18 21:50 02/26/18 00:10 Temperature 97.6 F 98.6 F Pulse Rate 72 74 Respiratory Rate 16 18 Blood Pressure 124/58 L 107/53 L Pulse Oximetry 97 95 96 02/26/18 03:29 02/26/18 08:00 Temperature 97.7 F 98.4 F Pulse Rate 71 66 Respiratory Rate 17 17 Blood Pressure 109/56 L 106/53 L Pulse Oximetry 97 91 L Intake & Output 02/25/18 02/26/18 02/26/18 18:59 06:59 18:59 Intake Total 240 / 240 480 / 480 Output Total 0 / 0 Balance 240 / 240 480 / 480 Weight 73 kg Intake: Oral 240 / 240 480 / 480 Output: Stool 0 / 0 Other: # Voids 0 1 Date of Last Bowel Movement 02/24/18 02/26/18 # Bowel Movements 1 - Constitutional no acute distress - Routine HEENT Exam Eye: Present: EOMI - Routine Neck Exam Present: supple - Routine Respiratory Exam Present: decreased breath sounds - Routine Cardiovascular Exam Present: RRR - Routine Abdominal Exam Present: soft - Routine Extremities Exam Present: edema Assessment and Plan - Assessment (1) End stage renal disease on dialysis Code(s): N18.6 - End stage renal disease; Z99.2 - Dependence on renal dialysis Status: Acute - Plan ESRD The patient has chronic kidney disease and there is some acute worsening. MOE possible related to urinary tract infection Has history of hemodialysis in past for acute worsening. Creatinine higher Urinary output low Next hemodialysis on Wednesday Status post permacath placement Avoid nephrotoxins Hemodialysis On Epogen 10,000 hemoglobin 7.3 Hemodialysis seen during hemodialysis tolerating it well ultrafiltration 3 L Patient agreed to the terminal operations supervisor HD On aspirin and Plavix and plan
[2018-02-26] MEDS: Insulin NovoLOG Aspart Correctional Sugar Inj SQ SCH ×4 (12:47→21:29)
[2018-02-26] MEDS: Senna/Docusate Sodium 8.6/50 MG Tablet PO SCH ×2 (13:00→21:28)
[2018-02-26] MEDS: Tiotropium Bromide 18 MCG/ACT Inhaler INH SCH (13:02)
[2018-02-27] MEDS: Senna/Docusate Sodium 8.6/50 MG Tablet PO SCH ×2 (08:09→20:57)
[2018-02-27] MEDS: Tiotropium Bromide 18 MCG/ACT Inhaler INH SCH (08:18)
[2018-02-27] MEDS: Insulin NovoLOG Aspart Correctional Sugar Inj SQ SCH ×4 (11:57→20:57)
--- NOTE | 2018-02-27 13:42 | P.PNIM ---
Subjective Interval history: No overnight events, had dialysis yesterday. Mobile, being followed by physical therapy. No overnight events. No shortness of breath. Physical Exam Vital signs: Vital Signs 02/26/18 17:00 02/26/18 17:39 02/26/18 20:00 Temperature 98.4 F 98.5 F Pulse Rate 81 67 Respiratory Rate 17 20 Blood Pressure 138/65 109/53 L Pulse Oximetry 97 97 97 02/26/18 21:40 02/26/18 22:46 02/27/18 00:00 Temperature 97.3 F L Pulse Rate 68 69 Respiratory Rate 15 18 Blood Pressure 120/56 L Pulse Oximetry 99 02/27/18 04:00 02/27/18 04:50 Temperature 97.6 F Pulse Rate 69 Respiratory Rate 20 14 Blood Pressure 119/59 L Pulse Oximetry 97 Intake & Output 02/26/18 02/27/18 02/27/18 18:59 06:59 18:59 Intake Total 240 / 240 480 / 480 Output Total 3120 / 3120 Balance -2880 / -2880 480 / 480 Weight 61.3 kg Intake: Oral 240 / 240 480 / 480 Output: Urine 120 / 120 Hemodialysis Amount 3000 / 3000 Other: # Voids 1 Date of Last Bowel Movement 02/26/18 02/26/18 # Bowel Movements 2 Narrative: GENERAL: Pleasant 72 yo F lying in bad CHEST Wall: Permacath in place, Vas-Cath removed. CARDIOVASCULAR: Regular rate and rhythm 1/3 systolic murmur. RESPIRATORY: Clear breath sounds. GASTROINTESTINAL: Abdomen soft, non-tender, nondistended. MUSCULOSKELETAL: extremities with 1+ bilateral LE edema Neurological: Alert awake and oriented 3, no focal deficits. Results - Labs CBC & Chem 7: 02/25/18 04:35 02/26/18 06:31 Laboratory Results - last 24 hr 02/26/18 02/26/18 02/27/18 17:17 21:10 08:15 POC Glucose 191 H 173 H 131 H 02/27/18 12:08 POC Glucose 186 H - Procedures 02/18- Dialysis catheter placement Assessment and Plan - Plan 72-year-old female with known history of CAD status post cath sometime in 2017 with 100% occluded LAD, history of DANICA in November 2016, cardiomyopathy last ejection fraction on review was 25-30%, admitted for worsening shortness of breath. Now with worsening renal function, will likely need dialysis as outpatient. Acute on chronic systolic CHF exacerbation with cardiomyopathy with known ejection fraction of 35-30% - Improved with HD - History of CAD status post CABG status post DANICA-LAD - Continue aspirin, Plavix, Bumex and Coreg. Acute on chronic kidney injury, now dialysis dependent - hemodialysis catheter placed 02/18, status post PermCath placement 02/25/2018.. -Continue Bumex 2 mg daily. Continue dialysis per nephrology Wednesday and Saturdays. Needs long-term dialysis. Hypokalemia-- resolved. Chronic respiratory failure on chronic 2L NC O2 use . 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 UTI- UA with pyuria - final C and S, no significant growth, status post 5 days of ceftriaxone. Anemia of chronic kidney disease. -Continue on iron supplements, cannot afford Epogen as outpatient, continue IV Epogen MWF while in-house. Diabetes type 2 well controlled - A1C - 6.5 - blood sugars monitoring with SSI Hyperlipidemia. Continue on statins Baseline ambulates with a walker - History of S/P left TMA DVT prophylaxis SQ heparin Activity- out of bed to chair - encourage patient- to up and ambulate with her walker PT consulted Discharge Planning: Needs OP HD; awaiting arrangements for outpatient hemodialysis to be made prior to discharge to home, outpatient PT
--- NOTE | 2018-02-27 15:43 | P.PNNP ---
Subjective Interval history: Patient feels tired Physical Exam Vital signs: Vital Signs 02/26/18 17:00 02/26/18 17:39 02/26/18 20:00 Temperature 98.4 F 98.5 F Pulse Rate 81 67 Respiratory Rate 17 20 Blood Pressure 138/65 109/53 L Pulse Oximetry 97 97 97 02/26/18 21:40 02/26/18 22:46 02/27/18 00:00 Temperature 97.3 F L Pulse Rate 68 69 Respiratory Rate 15 18 Blood Pressure 120/56 L Pulse Oximetry 99 02/27/18 04:00 02/27/18 04:50 02/27/18 12:00 Temperature 97.6 F 98.6 F Pulse Rate 69 71 Respiratory Rate 20 14 21 Blood Pressure 119/59 L 131/60 Pulse Oximetry 97 96 02/27/18 12:01 Temperature Pulse Rate 90 Respiratory Rate Blood Pressure Pulse Oximetry Intake & Output 02/26/18 02/27/18 02/27/18 18:59 06:59 18:59 Intake Total 240 / 240 480 / 480 Output Total 3120 / 3120 Balance -2880 / -2880 480 / 480 Weight 61.3 kg Intake: Oral 240 / 240 480 / 480 Output: Urine 120 / 120 Hemodialysis Amount 3000 / 3000 Other: # Voids 1 Date of Last Bowel Movement 02/26/18 02/26/18 # Bowel Movements 2 - Constitutional no acute distress - Routine HEENT Exam Head: Present: normocephalic - Routine Respiratory Exam Present: CTA bilaterally - Routine Cardiovascular Exam Present: RRR - Routine Abdominal Exam Present: soft, normoactive bowel sounds - Routine Extremities Exam Present: full ROM Assessment and Plan - Assessment (1) End stage renal disease on dialysis Code(s): N18.6 - End stage renal disease; Z99.2 - Dependence on renal dialysis Status: Acute - Plan ESRD The patient has chronic kidney disease and there is some acute worsening. MOE possible related to urinary tract infection Has history of hemodialysis in past for acute worsening. 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
[2018-02-28] MEDS: Senna/Docusate Sodium 8.6/50 MG Tablet PO SCH ×2 (08:54→22:20)
[2018-02-28] MEDS: Tiotropium Bromide 18 MCG/ACT Inhaler INH SCH (08:55)
[2018-02-28] MEDS: Insulin NovoLOG Aspart Correctional Sugar Inj SQ SCH ×4 (08:58→22:29)
--- NOTE | 2018-02-28 09:27 | P.DS ---
Date of admission: 02/15/18 02:46 Primary care physician: UNKNOWN Brief History from admission: Patient is a 72-year-old female who lives with her significant other, baseline gets around without walker and uses a scooter for long walks, baseline easily gets short of breath, on home O2 2 L nasal cannula, history of anemia of chronic disease, chronic kidney disease followed by Dr. Cano, cardiomyopathy, CAD who presented to the ER complaining of shortness of breath which started about 3-4 days ago. Patient states compliance with medications and diet. Last evening worsening shortness of breath which prompted consult to ER and on evaluation was noted to be in heart failure. Patient was given diuretics with improvement of symptoms. Patient is now awake alert talking. But as stated have been having worsening shortness of breath with easy fatigability. Based baseline with 2-3 pillow orthopnea. Patient however denies any leg swelling. States still voiding very well. Patient complains of cough which is nonproductive, denies any chest pains. Denies any melena or hematochezia Patient also states history of diabetes type 2 at one point was on insulin however with likely worsening renal function states has not been taking any insulin or medications and has been diet controlled. DS: Summary Hospital Course: Patient seen and examined sitting up in bed, in no acute distress. She reports she had a bad night as nurse did not give Spiriva at night when she normally takes this. Her breathing is fine this morning. Denies any fevers, chills, SOB, N/V/D, headache or chest pain. She is requesting to go home today. State that the HD center is close to her home and she is able to ride her scooter there. - Time Spent with Patient Total time spent providing and/or coordinating discharge services: - Quality: VTE Deep Vein Thrombosis/Pulmonary Embolism Present on Admission: No Exam Vital signs: Vital Signs 02/27/18 12:00 02/27/18 12:01 02/27/18 16:00 Temperature 37.0 C 36.4 C Pulse Rate 71 90 70 Respiratory Rate 21 19 Blood Pressure 131/60 131/74 Pulse Oximetry 96 96 02/27/18 19:32 02/27/18 20:00 02/28/18 00:00 Temperature 36.8 C 36.4 C Pulse Rate 72 95 H Respiratory Rate 18 16 Blood Pressure 107/48 L 130/61 Pulse Oximetry 96 94 L 99 02/28/18 04:00 02/28/18 08:00 Temperature 37.0 C Pulse Rate 73 69 Respiratory Rate 18 Blood Pressure 141/61 H Pulse Oximetry 98 Intake & Output 02/27/18 02/28/18 02/28/18 18:59 06:59 18:59 Intake Total 680 / 680 Balance 680 / 680 Weight 61.5 kg Intake: Oral 680 / 680 Other: # Voids 2 Date of Last Bowel Movement 02/27/18 02/27/18 Results Procedures completed during hospitalization: 02/18- Dialysis catheter placement Labs on day of discharge: Labs from last 24 hours 02/28/18 02/27/18 02/27/18 07:15 19:39 12:08 POC Glucose 109 249 H 186 H - Impressions ITS Impressions Chest X-Ray 02/15/18 00:17 CONCLUSION: 1. Small bilateral pleural effusions with associated lower lobe airspace disease, slightly progressed on the right from prior exam. Catheter Placement 02/18/18 00:00 CONCLUSION: 1. Uncomplicated line placement as above. Central Venous Line 02/25/18 09:00 CONCLUSION: Uncomplicated ultrasound and fluoroscopic guided dialysis PermaCath placement as above. Tube Removal 02/25/18 11:41 CONCLUSION: Uncomplicated catheter removal. Discharge Plan - Discharge Condition Condition: Stable - Physicians Team Primary Care Provider: UNKNOWN, Attending Provider: Ventura Singh Other Providers: Yuriy Mckeon MD ; Rishabh Keating
--- NOTE | 2018-02-28 15:26 | P.PNNP ---
Subjective Interval history: Patient is doing well awaiting discharge Physical Exam Vital signs: Vital Signs 02/27/18 16:00 02/27/18 19:32 02/27/18 20:00 Temperature 97.6 F 98.2 F Pulse Rate 70 72 Respiratory Rate 19 18 Blood Pressure 131/74 107/48 L Pulse Oximetry 96 96 94 L 02/28/18 00:00 02/28/18 04:00 02/28/18 08:00 Temperature 97.6 F 98.6 F 98.1 F Pulse Rate 95 H 73 72 Respiratory Rate 16 18 20 Blood Pressure 130/61 141/61 H 133/61 Pulse Oximetry 99 98 100 02/28/18 12:00 Temperature 97.5 F L Pulse Rate 67 Respiratory Rate 20 Blood Pressure 135/60 Pulse Oximetry 100 Intake & Output 02/27/18 02/28/18 02/28/18 18:59 06:59 18:59 Intake Total 680 / 680 Balance 680 / 680 Weight 61.5 kg Intake: Oral 680 / 680 Other: # Voids 2 Date of Last Bowel Movement 02/27/18 02/27/18 - Constitutional no acute distress - Routine HEENT Exam Head: Present: normocephalic - Routine Neck Exam Present: supple - Routine Respiratory Exam Present: CTA bilaterally - Routine Cardiovascular Exam Present: RRR - Routine Abdominal Exam Present: soft, normoactive bowel sounds - Routine Extremities Exam Present: full ROM Assessment and Plan - Assessment (1) End stage renal disease on dialysis Code(s): N18.6 - End stage renal disease; Z99.2 - Dependence on renal dialysis Status: Acute - Plan ESRD The patient has chronic kidney disease and there is some acute worsening. MOE possible related to urinary tract infection Has history of hemodialysis in past for acute worsening. 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
--- NOTE | 2018-02-28 15:36 | P.PN ---
Subjective Interval history: Follow-up visit for CHF exacerbation, MOE now with long-term HD, and COPD with long-term oxygen use. Patient was seen and examined earlier today, resting in bed in no acute distress. She does report that she did not have a good night because her Spiriva timing was not correct as she usually does this at night. At the moment she reports that her respiratory status is improved denies any shortness of breath, fevers, chills, nausea, vomiting, diarrhea, dizziness, headache or chest pain. She is also denying any kind of dysuria or lower abdominal pain, eating and drinking without any issues. She is asking to go home today, reports that she can get to dialysis center in her mobile scooter. Physical Exam Vital signs: Vital Signs 02/27/18 16:00 02/27/18 19:32 02/27/18 20:00 Temperature 36.4 C 36.8 C Pulse Rate 70 72 Respiratory Rate 19 18 Blood Pressure 131/74 107/48 L Pulse Oximetry 96 96 94 L 02/28/18 00:00 02/28/18 04:00 02/28/18 08:00 Temperature 36.4 C 37.0 C 36.7 C Pulse Rate 95 H 73 72 Respiratory Rate 16 18 20 Blood Pressure 130/61 141/61 H 133/61 Pulse Oximetry 99 98 100 02/28/18 12:00 Temperature 36.4 C L Pulse Rate 67 Respiratory Rate 20 Blood Pressure 135/60 Pulse Oximetry 100 Intake & Output 02/27/18 02/28/18 02/28/18 18:59 06:59 18:59 Intake Total 680 / 680 Balance 680 / 680 Weight 61.5 kg Intake: Oral 680 / 680 Other: # Voids 2 Date of Last Bowel Movement 02/27/18 02/27/18 Narrative: GENERAL: Pleasant 72 yo F lying in bad CHEST Wall: Permacath in place. CARDIOVASCULAR: Regular rate and rhythm. RESPIRATORY: Clear breath sounds. No rhonchi, wheezing noted. GASTROINTESTINAL: Abdomen soft, non-tender, nondistended. MUSCULOSKELETAL: extremities with trace edema. Neurological: Alert awake and oriented 3, no focal deficits. Results - Labs CBC & Chem 7: 02/25/18 04:35 02/26/18 06:31 Laboratory Results - last 24 hr 07/22/18 07/23/18 07/23/18 19:39 07:15 11:52 POC Glucose 249 H 109 194 H - Procedures 02/18- Dialysis catheter placement 02/25PermCath placement. Assessment and Plan - Plan 72-year-old female with known history of CAD status post cath sometime in 2017 with 100% occluded LAD, history of DANICA in November 2016, cardiomyopathy last ejection fraction on review was 25-30%, admitted for worsening shortness of breath. Now with worsening renal function, will likely need dialysis as outpatient. Acute on chronic systolic CHF exacerbation with cardiomyopathy with known ejection fraction of 35-30% - Improved with HD - History of CAD status post CABG status post DANICA-LAD - Continue aspirin, Plavix, Bumex and Coreg. Acute on chronic kidney injury, now dialysis dependent - hemodialysis catheter placed 02/18, status post PermCath placement 02/25/2018.. -Continue Bumex 2 mg daily. Continue dialysis per nephrology Wednesday and Saturdays. -Case management has set up long-term HD as outpatient, can discharge tomorrow after HD. Hypokalemia-- resolved. Chronic respiratory failure on chronic 2L NC O2 use . 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 UTI- UA with pyuria - final C and S, no significant growth, status post 5 days of ceftriaxone. Anemia of chronic kidney disease. -Continue on iron supplements, cannot afford Epogen as outpatient, continue IV Epogen MWF while in-house. -Follow-up as outpatient with nephrology. Diabetes type 2 well controlled - A1C - 6.5 - blood sugars monitoring with SSI Hyperlipidemia. Continue on statins Baseline ambulates with a walker - History of S/P left TMA DVT prophylaxis SQ heparin Activity- out of bed to chair -PT has seen and evaluated patient and does not recommend outpatient PT Discussed Condition With: Patient, nurse, child support case officer. Discharge Planning: Patient has set up outpatient hemodialysis center, can be discharged tomorrow after HD treatment completed.
[2018-03-01 05:01] LABS: Baso % (Auto) 0.9 % (0.0-2.0); Eos # (Auto) 0.1 th/mm3 (0.0-0.4); Eos % (Auto) 1.8 % (0.0-4.0); Hematocrit 22.5 % (35.0-46.0); Lymph % (Auto) 20.9 % (9.0-44.0); Mean Corpuscular Hemoglobin 26.6 pg (27.0-34.0); Mean Corpuscular Volume 86.4 fL (80.0-100.0); Mean Platelet Volume 8.5 fL (7.0-11.0); Mono # (Auto) 0.6 th/mm3 (0.0-0.9); Mono % (Auto) 13.7 % (0.0-8.0); Neut # (Auto) 2.9 th/mm3 (1.8-7.7); Neut % (Auto) 62.7 % (16.0-70.0); Platelet Count 231 th/mm3 (150-450); Red Blood Count 2.61 mil/mm3 (4.00-5.30); Red Cell Distribution Width 20.7 % (11.6-17.2); White Blood Count 4.7 th/mm3 (4.0-11.0)
[2018-03-01 05:18] LABS: Mean Corpuscular HGB Conc 30.8 % (32.0-36.0)
[2018-03-01 05:21] LABS: Hemoglobin 6.9 gm/dL (11.6-15.3)
[2018-03-01 05:24] LABS: Carbon Dioxide 28.6 meq/L (21.0-32.0); Potassium 3.8 meq/L (3.5-5.1)
[2018-03-01] MEDS ORDERED: Sodium Chlor 0.9% Inj 250 ML IV.SIG SCH (06:00)
[2018-03-01 08:21] LABS: Acanthocytes Occ; Ovalocytes 1+
[2018-03-01 11:27] VITALS: RESP 18
[2018-03-01] MEDS: Insulin NovoLOG Aspart Correctional Sugar Inj SQ SCH (12:43)
[2018-03-01] MEDS: Senna/Docusate Sodium 8.6/50 MG Tablet PO SCH (12:44)
[2018-03-01] MEDS: Tiotropium Bromide 18 MCG/ACT Inhaler INH SCH (12:45)
[2018-03-01 12:48] VITALS: BP 141/63; PULSE 77; TEMP 99.4; O2SAT 95
--- NOTE | 2018-03-01 13:06 | P.DS ---
Date of admission: 02/15/18 02:46 Primary care physician: UNKNOWN Attending physician on discharge: Ventura Singh Anticipated date of discharge: 03/01/18 Brief History from admission: Patient is a 72-year-old female who lives with her significant other, baseline gets around without walker and uses a scooter for long walks, baseline easily gets short of breath, on home O2 2 L nasal cannula, history of anemia of chronic disease, chronic kidney disease followed by Dr. Cano, cardiomyopathy, CAD who presented to the ER complaining of shortness of breath which started about 3-4 days ago. Patient states compliance with medications and diet. Last evening worsening shortness of breath which prompted consult to ER and on evaluation was noted to be in heart failure. Patient was given diuretics with improvement of symptoms. Patient is now awake alert talking. But as stated have been having worsening shortness of breath with easy fatigability. Based baseline with 2-3 pillow orthopnea. Patient however denies any leg swelling. States still voiding very well. Patient complains of cough which is nonproductive, denies any chest pains. Denies any melena or hematochezia Patient also states history of diabetes type 2 at one point was on insulin however with likely worsening renal function states has not been taking any insulin or medications and has been diet controlled. DS: Medications - Discharge Medications Prescriptions: bumetanide 2 mg PO DAILY #30 tab carvedilol [Coreg] 3.125 mg PO BID #60 tab DS: Summary Hospital Course: 72-year-old female with past medical history significant for anemia, CHF, COPD and chronic O2, and CKD who presented to the emergency department on 02/15 with complaints of shortness of breath 3-4 days prior to arrival. During patient's hospitalization she was seen and evaluated by nephrology services who recommended hemodialysis, had a Vas-Cath placed on 02/18 with subsequent permacath placed on 02/25. Patient was also initiated on p.o. Bumex and dialyzed Tuesdays, , and Saturdays, with recommendations for long-term HD. Patient was also treated for UTI with IV ceftriaxone for 5 days. She had a drop in hemoglobin on day of discharge to hemoglobin of 6.9, hematocrit 22.5. She was dialyzed and transfused with 1 unit of PRBCs. The day of discharge patient is seen and examined sitting in bed in no acute distress. She denies any shortness of breath, cough, fevers, chills, nausea, vomiting, diarrhea or chest pain. Spoke with case management who was set up hemodialysis appointment at Center, instructions for follow-up CBC and follow-up with PCP. - Time Spent with Patient Total time spent providing and/or coordinating discharge services: Less than 30 minutes - Quality: VTE Deep Vein Thrombosis/Pulmonary Embolism Present on Admission: No Exam Vital signs: Vital Signs 02/28/18 16:00 02/28/18 17:59 02/28/18 19:12 Temperature 36.3 C L 36.2 C L Pulse Rate 68 68 Respiratory Rate 18 18 Blood Pressure 129/60 124/58 L Pulse Oximetry 98 98 98 02/28/18 19:41 02/28/18 23:44 03/01/18 03:00 Temperature 36.7 C Pulse Rate 68 68 68 Respiratory Rate 18 Blood Pressure 116/56 L Pulse Oximetry 98 03/01/18 03:56 03/01/18 08:00 03/01/18 10:57 Temperature 36.4 C 36.6 C Pulse Rate 70 67 80 Respiratory Rate 18 18 Blood Pressure 126/59 L Pulse Oximetry 98 03/01/18 10:59 03/01/18 11:10 03/01/18 11:26 Temperature 36.6 C 36.6 C Pulse Rate 80 80 Respiratory Rate 20 18 Blood Pressure 113/55 L 120/61 Pulse Oximetry 97 03/01/18 12:00 Temperature 37.4 C Pulse Rate 77 Respiratory Rate 18 Blood Pressure 141/63 H Pulse Oximetry 95 Intake & Output 02/28/18 03/01/18 03/01/18 18:59 06:59 18:59 Intake Total 480 / 480 480 / 480 400 / 400 Output Total 2500 / 2500 Balance 455 / 455 480 / 480 -2100 / -2100 Weight 61.5 kg Intake: Oral 480 / 480 480 / 480 Intake (Blood Product) Amt 400 / 400 Rbc As-3 Leukoreduced Unit 400 / 400 [id number] Output: Urine Hemodialysis Amount 2500 / 2500 Other: # Voids 2 Date of Last Bowel Movement 02/27/18 02/27/18 02/27/18 # Bowel Movements 0 2 Results Procedures completed during hospitalization: Vas-Cath placement 02/18 Permacath placement 02/25 Labs on day of discharge: Labs from last 24 hours 03/01/18 03/01/18 03/01/18 11:58 08:37 08:37 WBC RBC Hgb Hct MCV MCH MCHC RDW Plt Count MPV Prelim Diff (Auto) Neut % (Auto) Lymph % (Auto) Freestone % (Auto) Eos % (Auto) Baso % (Auto) Neut # (Auto) Lymph # (Auto) Freestone # (Auto) Eos # (Auto) Baso # (Auto) WBC Differential Differential Comment Ovalocytes Acanthocytes (Spur) Sodium Potassium Chloride Carbon Dioxide Anion Gap BUN Creatinine Estimated GFR POC Glucose 127 H Random Glucose Calcium Blood Type Cancelled A Positive Blood Type Recheck Cancelled Not needed Antibody Screen Cancelled Negative MTS Gel Crossmatch See Detail 03/01/18 03/01/18 03/01/18 08:08 04:06 04:06 WBC 4.7 RBC 2.61 L Hgb 6.9 L* Hct 22.5 L MCV 86.4 MCH 26.6 L MCHC 30.8 L RDW 20.7 H Plt Count 231 MPV 8.5 Prelim Diff (Auto) Slide review pending Neut % (Auto) 62.7 Lymph % (Auto) 20.9 Freestone % (Auto) 13.7 H Eos % (Auto) 1.8 Baso % (Auto) 0.9 Neut # (Auto) 2.9 Lymph # (Auto) 1.0 Freestone # (Auto) 0.6 Eos # (Auto) 0.1 Baso # (Auto) 0.0 WBC Differential Manual diff final Differential Comment . Ovalocytes 1+ H Acanthocytes (Spur) Occ H Sodium 136 Potassium 3.8 Chloride 98 Carbon Dioxide 28.6 Anion Gap 9 BUN 36 H Creatinine 3.41 H Estimated GFR 13 L POC Glucose 135 H Random Glucose 135 H Calcium 8.0 L Blood Type Blood Type Recheck Antibody Screen MTS Gel Crossmatch 02/28/18 02/28/18 19:53 16:51 WBC RBC Hgb Hct MCV MCH MCHC RDW Plt Count MPV Prelim Diff (Auto) Neut % (Auto) Lymph % (Auto) Freestone % (Auto) Eos % (Auto) Baso % (Auto) Neut # (Auto) Lymph # (Auto) Freestone # (Auto) Eos # (Auto) Baso # (Auto) WBC Differential Differential Comment Ovalocytes Acanthocytes (Spur) Sodium Potassium Chloride Carbon Dioxide Anion Gap BUN Creatinine Estimated GFR POC Glucose 165 H 147 H Random Glucose Calcium Blood Type Blood Type Recheck Antibody Screen MTS Gel Crossmatch - Impressions ITS Impressions Chest X-Ray 02/15/18 00:17 CONCLUSION: 1. Small bilateral pleural effusions with associated lower lobe airspace disease, slightly progressed on the right from prior exam. Catheter Placement 02/18/18 00:00 CONCLUSION: 1. Uncomplicated line placement as above. Central Venous Line 02/25/18 09:00 CONCLUSION: Uncomplicated ultrasound and fluoroscopic guided dialysis PermaCath placement as above. Tube Removal 02/25/18 11:41 CONCLUSION: Uncomplicated catheter removal. Discharge Plan - Discharge Disposition Patient Disposition: Discharge Home - Discharge Condition Condition: Stable - Discharge Order Discharge Orders: Discharge Order (Routine); Ordered 03/01/18 Ordered By: Ramin Jc - Discharge Details Anticipated Discharge Date: 03/01/18 Discharge Comment: F/u with nephrology, CBC in next few days with f/u with PCP. - Physicians Team Primary Care Provider: UNKNOWN, Attending Provider: Ventura Singh Other Providers: Yuriy Mckeon MD ; Rishabh,Rishabh
== END 2018-03-01 15:17 | disposition home or self-care (01) ==
LOC: NEPC 20:44 → NEDA 02-15 02:46 → N03 02-15 15:11 → N06 02-25 16:21
PROVIDERS: ADMIT Family Medicine; ATTEND Family Medicine

== ENCOUNTER 2018-07-27 05:53 | Observation (INO) ==
[2018-07-27] MEDS ORDERED: Bupivacaine PF 0.5% Inj 10 ML Vial ONE (06:44)
[2018-07-27] MEDS ORDERED: Heparin 10,000 UNITS/10 ML Vial (for IV use) ONE (06:44)
[2018-07-27] MEDS ORDERED: Protamine Sulfate Inj 50 MG/5 ML Vial ONE (06:44)
[2018-07-27] MEDS ORDERED: Heparin/NS PF Inj 500 ML ONE (06:45)
[2018-07-27] MEDS ORDERED: Heparin 2,000 UNITS/2 ML Vial (for IV use) IV.FLUSH PRN (06:52)
[2018-07-27] MEDS ORDERED: Sodium Chlor 0.9% Inj 500 ML IV.CONT ONE (07:00)
[2018-07-27] MEDS ORDERED: Chlorhexidine Gluconate 2% 1 Pack (2 Cloths) TOPICAL ONE (07:00)
[2018-07-27] MEDS ORDERED: Metoprolol Tartrate 25 MG Tablet PO ONE (07:00)
[2018-07-27 07:13] LABS: INR 1.1 Ratio; Prothrombin Time 11.2 sec (9.8-11.6)
--- NOTE | 2018-07-27 07:16 | P.HPVS ---
History of Present Illness Chief Complaint: ESRD ,need for HD access History of Present Illness: 72 yo female with ESRD needs HD access. Has been on HD for some time but thought her renal function was improving. Now has had 2 catheters, most recently yesterday and no F/C. Ari HD yesterday. RIGHT handed. No autogenous veins. Presents for LEFT arm AVG - Inpatient Certification If this patient has been admitted as an Inpatient: I certify that the inpatient services were ordered in accordance with Medicare regulations governing the order. This includes certification that hospital inpatient services are reasonable and necessary and in the case of services not specified as inpatient-only under 42 CFR 419.22(n), that they are appropriately provided as inpatient services in accordance to with the 2-midnight benchmark under 43 CFR 412.3(e) Estimated Total Length of Stay (Days): 2 Plans for Post Hospital Care: Home Review of Systems All other systems reviewed negative except as stated in HPI PMFSH - History History Provided By: Patient - Medical History Medical History: Medical History (Last Reviewed 07/27/18 @ 07:14 by Everett Cueto MD) Anemia CHF (congestive heart failure) COPD (chronic obstructive pulmonary disease) Cardiac LV ejection fraction <20% Dialysis patient H/O: hysterectomy Kidney disease Port catheter in place - Surgical History Surgical History: Surgical History (Last Reviewed 07/27/18 @ 07:14 by Everett Cueto MD) History of cholecystectomy Hx of arteriovenostomy for renal dialysis S/P CABG x 3 - Tobacco History Second Hand Smoke Exposure: No Tobacco Use In Past 30 Days: No Smoking Status: Former smoker Tobacco Type: Cigarettes - Alcohol History How Often Do You Have a Drink Containing Alcohol: Never - Substance Use History Substance History: No History of Abuse - Travel History Recent Travel in the [place] Within the Last 8 Weeks: No Recent Travel Out of the Country Within the Last 8 Weeks: No Medications and Allergies Active Medications: Active Medications Chlorhexidine Gluconate (Chlorhexidine 2% Cloth) 3 pack TOPICAL LONG LINE TEAMSTER ONE Stop: 07/27/18 07:01 Last Admin: 07/27/18 07:01 Dose: 3 pack Heparin Sodium (Porcine) (Heparin Inj) 2,000 units IV.FLUSH WITH DIALYSIS PRN PRN Reason: Flush each lumen Lactated Ringer's (Lr 1000 Ml Inj) 1,000 mls @ 30 mls/hr IV.CONT .Q24H ONE Stop: 07/28/18 06:59 Last Admin: 07/27/18 07:01 Dose: Not Given Sodium Chloride (Ns Inj) 500 mls @ 30 mls/hr IV.CONT .[id number] ONE Stop: 07/27/18 23:39 Last Admin: 07/27/18 07:01 Dose: 30 mls/hr Metoprolol Tartrate (Lopressor) 25 mg PO LONG LINE TEAMSTER ONE Stop: 07/27/18 07:01 Last Admin: 07/27/18 07:01 Dose: Not Given Povidone Iodine (Betadine 5% Antisepsis Kit) 1 applicatio EACH NARE LONG LINE TEAMSTER ONE Stop: 07/27/18 07:01 Last Admin: 07/27/18 07:00 Dose: Not Given Sodium Chloride (Ns Flush) 0 ml IV.FLUSH PRN PRN PRN Reason: FLUSH AFTER USING IV ACCESS Allergies Allergy/AdvReac Type Severity Reaction Status Date / Time codeine Allergy Severe SEVERE Verified 07/27/18 06:36 MOOD SWINGS guaifenesin Allergy Severe Swelling Verified 07/27/18 06:36 [From Tylenol Sinus Severe Congest] iodine Allergy Severe EDEMA Verified 07/27/18 06:36 metformin Allergy Severe N/V Verified 07/27/18 06:36 potassium iodide Allergy Severe EDEMA Verified 07/27/18 06:36 povidone-iodine Allergy Severe EDEMA Verified 07/27/18 06:36 pseudoephedrine Allergy Severe THROAT Verified 07/27/18 06:36 SWELLS sodium iodide Allergy Severe EDEMA Verified 07/27/18 06:36 sodium iodide Allergy Severe EDEMA Verified 07/27/18 06:36 Sulfa (Sulfonamide Allergy Mild Anaphylaxis Verified 07/27/18 06:36 Antibiotics) levofloxacin AdvReac Severe NAUSEA, Verified 07/27/18 06:36 VOMITING, DIZZINESS sulfamethoxazole AdvReac Severe NAUSEA, Verified 07/27/18 06:36 VOMITING, DIZZINESS trimethoprim AdvReac Severe NAUSEA, Verified 07/27/18 06:36 VOMITING, DIZZINESS Home Medications Medication Instructions Recorded Confirmed Type aspirin 81 mg PO DAILY 02/15/18 07/27/18 History cholecalciferol (vitamin D3) 5,000 unit PO DAILY 02/15/18 07/27/18 History [Vitamin D3] clopidogrel 75 mg PO DAILY 02/15/18 07/26/18 History docusate sodium 100 mg PO DAILY 02/15/18 07/27/18 History ferrous gluconate 236 mg PO DAILY 02/15/18 07/27/18 History ferrous sulfate 325 mg PO DAILY 02/15/18 07/27/18 History loratadine 10 mg PO DAILY 02/15/18 07/27/18 History multivitamin 1 tab PO DAILY 02/15/18 07/27/18 History pantoprazole 40 mg PO DAILY 02/15/18 07/27/18 History rosuvastatin 40 mg PO HS 02/15/18 07/27/18 History tiotropium bromide [Spiriva 2 puff INHALATION DAILY 02/15/18 07/27/18 History Respimat] vit B comp no.5-[id number]-I-biotin 1 tab PO DAILY 02/15/18 07/27/18 History [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] carvedilol [Coreg] 3.125 mg PO DAILY 07/26/18 07/27/18 History mkgax-jm-[id number]-rpb-mbl-jnxdfbd-ast 1 cap PO BID 07/27/18 07/27/18 History [krill oil] Physical Exam Vital Signs / I&O: Vital Signs 07/27/18 06:42 Temperature 98.2 F Pulse Rate 82 Respiratory Rate 18 Blood Pressure 133/66 Pulse Oximetry 98 Intake & Output 07/26/18 07/27/18 07/27/18 18:59 06:59 18:59 Weight 54.7 kg Other: Weight On Admission 54.7 kg Neuro: alert, no distress HEENT: NC/AT Neck: no JVD Heart: reg rate Lungs: clear Vascular: palpable UE pulses Extremities: no incisions or rashes Laboratory Results - last 24 hr 07/27/18 06:40 Blood Type A Positive Blood Type Recheck Not needed Caprini VTE Risk Assessment Caprini VTE Risk Assessment: No/Low Risk (score <= 1) (intraop heparin) Caprini Risk Assessment Model: Point Value = 1 Point Value = 2 Point Value = 3 Point Value = 5 Age 41-60 Minor surgery BMI > 25 kg/m2 Swollen legs Varicose veins or History of unexplained or recurrent spontaneous Oral contraceptives or hormone replacement Sepsis (< 1 month) Serious lung disease, including pneumonia (< 1 month) Abnormal pulmonary function Acute myocardial infarction Congestive heart failure (< 1 month) History of inflammatory bowel disease Medical patient at bed rest Age 61-74 Arthroscopic surgery Major open surgery (> 45 min) Laparoscopic surgery (> 45 min) Malignancy Confined to bed (> 72 hours) Immobilizing plaster cast Central venous access Age >= 75 History of VTE Family history of VTE Factor V Leiden Prothrombin [id number] Lupus anticoagulant Anticardiolipin antibodies Elevated serum homocysteine Heparin-induced thrombocytopenia Other congenital or acquired thrombophilia Stroke (< 1 month) Elective arthroplasty Hip, pelvis, or leg fracture Acute spinal cord injury (< 1 month) Prophylaxis Regimen: Total Risk Factor Score Risk Level Prophylaxis Regimen 0-1 Low Early ambulation 2 Moderate Order ONE of the following: *Sequential Compression Device (SCD) *Heparin 5000 units SQ BID 3-4 Higher Order ONE of the following medications: *Heparin 5000 units SQ TID *Enoxaparin/Lovenox 40 mg SQ daily (WT < 150 kg, CrCl > 30 mL/min) *Enoxaparin/Lovenox 30 mg SQ daily (WT < 150 kg, CrCl > 10-29 mL/min) *Enoxaparin/Lovenox 30 mg SQ BID (WT < 150 kg, CrCl > 30 mL/min) AND/OR *Sequential Compression Device (SCD) 5 or more Highest Order ONE of the following medications: *Heparin 5000 units SQ TID (Preferred with Epidurals) *Enoxaparin/Lovenox 40 mg SQ daily (WT < 150 kg, CrCl > 30 mL/min) *Enoxaparin/Lovenox 30 mg SQ daily (WT < 150 kg, CrCl > 10-29 mL/min) *Enoxaparin/Lovenox 30 mg SQ BID (WT < 150 kg, CrCl > 30 mL/min) AND *Sequential Compression Device (SCD) Assessment and Plan - Assessment (1) End stage renal disease on dialysis Code(s): N18.6 - End stage renal disease; Z99.2 - Dependence on renal dialysis Status: Acute - Plan LEFT arm AVG Post op adm for obs and HD Discharge Planning: POD#1
[2018-07-27 07:21] LABS: Calcium 8.7 mg/dL (8.5-10.1); Carbon Dioxide 26.4 meq/L (21.0-32.0); Potassium 4.5 meq/L (3.5-5.1)
[2018-07-27 07:23] LABS: Baso % (Auto) 0.8 % (0.0-2.0); Eos % (Auto) 0.9 % (0.0-4.0); Hematocrit 34.9 % (35.0-46.0); Hemoglobin 11.6 gm/dL (11.6-15.3); Lymph # (Auto) 1.8 th/mm3 (1.0-4.8); Lymph % (Auto) 33.8 % (9.0-44.0); Mean Corpuscular HGB Conc 33.2 % (32.0-36.0); Mean Corpuscular Hemoglobin 33.7 pg (27.0-34.0); Mean Corpuscular Volume 101.4 fL (80.0-100.0); Mean Platelet Volume 8.3 fL (7.0-11.0); Mono # (Auto) 0.9 th/mm3 (0.0-0.9); Mono % (Auto) 17.4 % (0.0-8.0); Neut # (Auto) 2.5 th/mm3 (1.8-7.7); Neut % (Auto) 47.1 % (16.0-70.0); Platelet Count 205 th/mm3 (150-450); Red Blood Count 3.44 mil/mm3 (4.00-5.30); White Blood Count 5.2 th/mm3 (4.0-11.0)
[2018-07-27] MEDS: Thrombin Topical 20,000 UNIT Spray Kit TOPICAL ONE ×2 (08:22→08:44)
--- NOTE | 2018-07-27 08:58 | P.OP ---
- Preoperative Diagnosis (1) End stage renal disease on dialysis - Postoperative Diagnosis (1) End stage renal disease on dialysis Date of procedure: 07/27/18 Procedure: LEFT brach-ax AVG with 6mm PTFE Implants: 6mm PTFE Anesthesia: GETA Surgeon: Everett Cueto MD Renal Dietitian: Es Escudero Estimated blood loss (mL): 100 IV fluids (mL): 500 Pathology: none sent Operation and Findings: small artery and vein + thrill + Doppler signal in wrist
[2018-07-27] MEDS ORDERED: Morphine Inj 4 MG/ML Vial IV.PUSH PRN (09:11)
[2018-07-27] MEDS ORDERED: Bisacodyl 10 MG Supp RECTAL PRN (09:11)
[2018-07-27] MEDS ORDERED: fentaNYL Citrate Inj 100 MCG/2 ML Ampul ONE (09:45)
--- NOTE | 2018-07-27 10:05 | MP ---
cc: Everett Cueto MD DATE OF OPERATION: 07/27/2018 PREOPERATIVE DIAGNOSIS: Endstage renal disease, need for dialysis access. POSTOPERATIVE DIAGNOSIS: Endstage renal disease, need for dialysis access. PROCEDURE PERFORMED: Left brachial artery to axillary vein arteriovenous graft with 6 mm PTFE. ATTENDING SURGEON: Everett Cueto MD. GRADUATE STUDENT INSTRUCTOR SURGEON: RAMA Berkowitz/First Mary. ANESTHESIA: General. INDICATIONS FOR PROCEDURE: Ms. Sanchez is a 72-year-old lady with end-stage renal disease, who is currently dialyzing through a right chest catheter. She has no suitable autogenous vein and she is taken to the operating room for a left upper extremity access using PTFE. DESCRIPTION OF PROCEDURE: Informed consent was obtained from the patient. She was taken to the operating room and placed supine on the operating table. Appropriate timeout was taken to ensure the patient's identity, the operative site, and planned procedure. The administration of 1 gram of vancomycin was initiated prior to skin incision and will be discontinued after single preoperative dose. Everyone in the room agreed with the timeout and we proceeded. Vancomycin was chosen because of the patient end-stage renal disease. Her left arm was prepped and draped. An incision was made in the antecubital and carried down to and through subcutaneous tissue with electrocautery. The brachial artery was identified and dissected free for several centimeters. A separate incision was made in the patient's axilla, carried down through subcutaneous tissue with electrocautery. The axillary vein was identified and dissected free for several centimeters. A curvilinear tunnel was then created between these two and a 6 mm PTFE graft was placed through the tunnel, taking caution not to twist it. The patient was systemically heparinized with 3000 units of IV heparin. Proximal and distal control of the brachial artery was obtained with profunda clamps and a longitudinal arteriotomy was made with an 11 blade, extended with Michael scissors. The graft was spatulated and sewn end-to-side with running 6-0 Prolene suture. At the completion, it was flushed and noted to be hemostatic. A clamp was placed on the graft and the clamps were released on the brachial artery. Proximal and distal control of the axillary vein were obtained with profunda clamps and a longitudinal venotomy was made with an 11 blade, extended with Michael scissors. The graft was cut to an appropriate length, spatulated, and sewn end-to-side with running 5-0 Prolene suture. At the completion of flushing, it was noted to be hemostatic. There was a nice thrill in the fistula and a Doppler signal in the wrist. The heparin reversed with protamine. The wounds were infiltrated with Marcaine; irrigated; made hemostatic; and closed with 2-0 Polysorb, 3-0 Polysorb, and 4-0 Monocryl. The sponge and needle counts were correct at the end of the case. I was present, scrubbed, and performed the entire procedure. MD DANUTA Domingo/percy , 09:43 AM , 09:49 AM
[2018-07-27] MEDS ORDERED: *Ondansetron Inj 4 MG/2 ML Vial PERIprocedural Use ONLY ONE (10:15)
[2018-07-27] MEDS ORDERED: Sod Chloride 0.9% Inj 1,000 ML IV.CONT PRN (10:54)
[2018-07-27] MEDS ORDERED: Sod Chloride 0.9% Inj 1,000 ML OTHER PRN ×2 (10:54)
[2018-07-27] MEDS ORDERED: Albumin Human 25% Inj 100 ML IV.SIG PRN (10:54)
[2018-07-27] MEDS ORDERED: Gelatin 12 MM/7 MM Topical Foam TOPICAL PRN (10:54)
[2018-07-27] MEDS ORDERED: Heparin 10,000 UNITS/10 ML Vial (for IV use) OTHER PRN ×2 (10:54)
[2018-07-27] MEDS ORDERED: Acetaminophen 325 MG Tablet PO PRN (10:54)
--- NOTE | 2018-07-27 10:54 | P.CONNP ---
<Candi Servin - Last Filed: 07/27/18 15:25> History of Present Illness Service: Nephrology Consult date: 07/27/18 Requesting Physician: Everett Cueto Reason for Consult: End stage renal disease on HD Primary Care Provider: No Primary Care Physician History of Present Illness: This is a 72-year-old female with past medical history of hypertension, end stage renal disease, congestive heart failure, and chronic obstructive pulmonary disease who came to the hospital for need of hemodialysis catheter. Currently has a right IJ permacath. Patient is seen in recovery room and s/p left arm AVG. Denies any shortness of breath, chest pain, and pain is well controlled. Reports some nausea. Nephrology is consulted for management of hemodialysis. Hemodialysis on with last HD on Wednesday. Review of Systems All other systems reviewed negative except as stated in HPI PMFSH - History History Provided By: Patient - Medical History Medical History: Medical History (Last Reviewed 07/27/18 @ 07:14 by Everett Cueto MD) Anemia CHF (congestive heart failure) COPD (chronic obstructive pulmonary disease) Cardiac LV ejection fraction <20% Dialysis patient H/O: hysterectomy Kidney disease Port catheter in place - Surgical History Surgical History: Surgical History (Last Reviewed 07/27/18 @ 07:14 by Everett Cueto MD) History of cholecystectomy Hx of arteriovenostomy for renal dialysis S/P CABG x 3 - Tobacco History Second Hand Smoke Exposure: No Tobacco Use In Past 30 Days: No Smoking Status: Former smoker Tobacco Type: Cigarettes - Alcohol History How Often Do You Have a Drink Containing Alcohol: Never - Substance Use History Substance History: No History of Abuse - Travel History Recent Travel in the [place] Within the Last 8 Weeks: No Recent Travel Out of the Country Within the Last 8 Weeks: No Medications and Allergies Allergies Allergy/AdvReac Type Severity Reaction Status Date / Time codeine Allergy Severe SEVERE Verified 07/27/18 06:36 MOOD SWINGS guaifenesin Allergy Severe Swelling Verified 07/27/18 06:36 [From Tylenol Sinus Severe Congest] iodine Allergy Severe EDEMA Verified 07/27/18 06:36 metformin Allergy Severe N/V Verified 07/27/18 06:36 potassium iodide Allergy Severe EDEMA Verified 07/27/18 06:36 povidone-iodine Allergy Severe EDEMA Verified 07/27/18 06:36 pseudoephedrine Allergy Severe THROAT Verified 07/27/18 06:36 SWELLS sodium iodide Allergy Severe EDEMA Verified 07/27/18 06:36 sodium iodide Allergy Severe EDEMA Verified 07/27/18 06:36 Sulfa (Sulfonamide Allergy Mild Anaphylaxis Verified 07/27/18 06:36 Antibiotics) levofloxacin AdvReac Severe NAUSEA, Verified 07/27/18 06:36 VOMITING, DIZZINESS sulfamethoxazole AdvReac Severe NAUSEA, Verified 07/27/18 06:36 VOMITING, DIZZINESS trimethoprim AdvReac Severe NAUSEA, Verified 07/27/18 06:36 VOMITING, DIZZINESS Home Medications Medication Instructions Recorded Confirmed Type aspirin 81 mg PO DAILY 02/15/18 07/27/18 History cholecalciferol (vitamin D3) 5,000 unit PO DAILY 02/15/18 07/27/18 History [Vitamin D3] clopidogrel 75 mg PO DAILY 02/15/18 07/26/18 History docusate sodium 100 mg PO DAILY 02/15/18 07/27/18 History ferrous gluconate 236 mg PO DAILY 02/15/18 07/27/18 History ferrous sulfate 325 mg PO DAILY 02/15/18 07/27/18 History loratadine 10 mg PO DAILY 02/15/18 07/27/18 History multivitamin 1 tab PO DAILY 02/15/18 07/27/18 History pantoprazole 40 mg PO DAILY 02/15/18 07/27/18 History rosuvastatin 40 mg PO HS 02/15/18 07/27/18 History tiotropium bromide [Spiriva 2 puff INHALATION DAILY 02/15/18 07/27/18 History Respimat] vit B comp no.5-mhaiw-H-biotin 1 tab PO DAILY 02/15/18 07/27/18 History [[employer]-Natalee Rx] carvedilol [Coreg] 3.125 mg PO DAILY 07/26/18 07/27/18 History [id number]-phfriuq-ast 1 cap PO BID 07/27/18 07/27/18 History [krill oil] Active Medications: Active Medications Aspirin (Aspirin Chew) 81 mg PO DAILY [facility] Bisacodyl (Dulcolax Supp) 10 mg RECTAL DAILY PRN PRN Reason: SEVERE CONSITIPATION Bumetanide (Bumex) 2 mg PO DAILY [facility] Carvedilol (Coreg) 3.125 mg PO DAILY [facility] Clopidogrel Bisulfate (Plavix) 75 mg PO DAILY [facility] Ferrous Sulfate (Ferosul) 325 mg PO DAILY [facility] Heparin Sodium (Porcine) (Heparin Inj) 2,000 units IV.FLUSH WITH DIALYSIS PRN PRN Reason: Flush each lumen Heparin Sodium (Porcine) (Heparin Inj) 5,000 units SQ Q8H [facility] Hydromorphone HCl (Dilaudid) 1 mg PO Q4H PRN PRN Reason: PAIN SCALE 1 TO 5 Lactated Ringer's (Lr 1000 Ml Inj) 1,000 mls @ 30 mls/hr IV.CONT .Q24H ONE Stop: 07/28/18 06:59 Last Admin: 07/27/18 07:01 Dose: Not Given Sodium Chloride (Ns Inj) 500 mls @ 30 mls/hr IV.CONT .[id number] ONE Stop: 07/27/18 23:39 Last Admin: 07/27/18 07:01 Dose: 30 mls/hr Lactulose (Lactulose Liq) 30 ml PO DAILY PRN PRN Reason: SEVERE CONSITIPATION Loratadine (Claritin) 10 mg PO DAILY [facility] Morphine Sulfate (Morphine Inj) 2 mg IV.PUSH Q1H PRN PRN Reason: BREAKTHROUGH PAIN Non-Formulary Medication (Cholecalciferol (Vitamin D3) [Vitamin D3]) 5,000 unit PO DAILY [facility] Non-Formulary Medication (Ferrous Gluconate [Ferrous Gluconate]) 236 mg PO DAILY [facility] Non-Formulary Medication (Nfela-Bw-4-Okc-Fdw-Ldncpts-Ast [Krill Oil]) 1 cap PO BID [facility] Non-Formulary Medication (Multivitamin [Multivitamin]) 1 tab PO DAILY [facility] Non-Formulary Medication (Rosuvastatin [Rosuvastatin]) 40 mg PO HS [facility] Non-Formulary Medication (Vit B Comp No.7-Ntqzu-F-Biotin [Clam Treader-Natalee Rx]) 1 tab PO DAILY [facility] Non-Formulary Medication (Docusate Sodium [Docusate Sodium]) 100 mg PO DAILY [facility] Non-Formulary Medication (Tiotropium [place] [Spiriva Respimat]) 2 puff INHALATION DAILY [facility] Pantoprazole Sodium (Protonix) 40 mg PO DAILY [facility] Senna/Docusate Sodium (Larisa-Colace) 1 tab PO BID [facility] Sennosides (Senokot) 17.2 mg PO Q12H PRN PRN Reason: Moderate Constipation Sodium Chloride (Ns Flush) 0 ml IV.FLUSH PRN PRN PRN Reason: FLUSH AFTER USING IV ACCESS Exam Vital signs: Vital Signs 07/27/18 06:42 07/27/18 09:36 07/27/18 09:45 Temperature 98.2 F 98.4 F Pulse Rate 82 81 79 Respiratory Rate 18 16 16 Blood Pressure 133/66 128/60 124/58 L Pulse Oximetry 98 95 98 07/27/18 10:00 07/27/18 10:15 07/27/18 10:30 Temperature Pulse Rate 75 78 81 Respiratory Rate 14 12 12 Blood Pressure 123/58 L 154/70 H 146/65 H Pulse Oximetry 97 97 97 Intake & Output 07/26/18 07/27/18 07/27/18 18:59 06:59 18:59 Intake Total 500 / 500 Output Total 100 / 100 Balance 400 / 400 Weight 54.7 kg Intake: Anesthesia Amount 500 / 500 Output: Estimated Blood Loss 100 / 100 Other: Weight On Admission 54.7 kg Narrative: GENERAL: Alert and oriented. SKIN: Warm and dry. NECK: Supple, trachea midline. No JVD; CARDIOVASCULAR: Regular rate and rhythm without murmurs, gallops, or rubs. Right IJ permacath, left arm AVG. RESPIRATORY: Breath sounds equal bilaterally. No accessory muscle use. GASTROINTESTINAL: Abdomen soft, non-tender, nondistended. MUSCULOSKELETAL: No cyanosis, or edema. BACK: Nontender without obvious deformity. No CVA tenderness. Results - Lab Results 07/27/18 06:40 07/27/18 06:40 Most recent lab results Calcium 8.7 mg/dL (8.5-10.1) 07/27/18 06:40 Assessment and Plan - Assessment (1) End stage renal disease on dialysis Code(s): N18.6 - End stage renal disease; Z99.2 - Dependence on renal dialysis Status: Acute Plan: End stage renal disease on HD on //WED Has right IJ permacath Will proceed with HD on above schedule, orders placed Hepatitis panel done HD in AM will remove fluid as tolerated. Blood pressure well controlled home medications continued. <Yuriy Mckeon - Last Filed: 07/27/18 21:56> History of Present Illness Primary Care Provider: No Primary Care Physician [facility] - Medical History Medical History: Medical History (Last Reviewed 07/27/18 @ 07:14 by Everett Cueto MD) Anemia CHF (congestive heart failure) COPD (chronic obstructive pulmonary disease) Cardiac LV ejection fraction <20% Dialysis patient H/O: hysterectomy Kidney disease Port catheter in place - Surgical History Surgical History: Surgical History (Last Reviewed 07/27/18 @ 07:14 by Everett Cueto MD) History of cholecystectomy Hx of arteriovenostomy for renal dialysis S/P CABG x 3 Medications and Allergies Active Medications: Active Medications Acetaminophen (Tylenol) 650 mg PO UNSCH PRN PRN Reason: SEE LABEL COMMENTS Aspirin (Aspirin Chew) 81 mg PO DAILY [facility] Atorvastatin Calcium (Lipitor) 80 mg PO HS [facility] Last Admin: 07/27/18 21:37 Dose: 80 mg Bisacodyl (Dulcolax Supp) 10 mg RECTAL DAILY PRN PRN Reason: SEVERE CONSITIPATION Bumetanide (Bumex) 2 mg PO DAILY [facility] Carvedilol (Coreg) 3.125 mg PO DAILY [facility] Clonidine HCl (Catapres) 0.1 mg PO UNSCH PRN PRN Reason: SEE LABEL COMMENTS Clopidogrel Bisulfate (Plavix) 75 mg PO DAILY [facility] Diphenhydramine HCl (Benadryl) 25 mg PO UNSCH PRN PRN Reason: SEE LABEL COMMENTS Docusate Sodium (Colace) 100 mg PO DAILY [facility] Ferrous Sulfate (Ferosul) 325 mg PO DAILY [facility] Gelatin (Gelfoam 12 Mm/7 Mm Topical) 1 foam TOPICAL PRN PRN PRN Reason: help stop bleeding from site Gentamicin Sulfate (Gentamicin Inj) 20 mg OTHER WITH DIALYSIS PRN PRN Reason: Dwell Gentamycin Lock Heparin Sodium (Porcine) (Heparin Inj) 2,000 units IV.FLUSH WITH DIALYSIS PRN PRN Reason: Flush each lumen Heparin Sodium (Porcine) (Heparin Inj) 5,000 units SQ Q8H [facility] Last Admin: 07/27/18 17:58 Dose: Not Given Heparin Sodium (Porcine) (Heparin Inj) 8,000 units OTHER WITH DIALYSIS PRN PRN Reason: for machine prime Heparin Sodium (Porcine) (Heparin Inj) 1,000 units OTHER WITH DIALYSIS PRN PRN Reason: Dwell Heparin to Fill Catheter Hydromorphone HCl (Dilaudid) 1 mg PO Q4H PRN PRN Reason: PAIN SCALE 1 TO 5 Lactated Ringer's (Lr 1000 Ml Inj) 1,000 mls @ 30 mls/hr IV.CONT .Q24H ONE Stop: 07/28/18 06:59 Last Admin: 07/27/18 07:01 Dose: Not Given Sodium Chloride (Ns Inj) 500 mls @ 30 mls/hr IV.CONT .[id number] ONE Stop: 07/27/18 23:39 Last Admin: 07/27/18 07:01 Dose: 30 mls/hr Albumin Human (Flexbumin 25% Inj) 100 mls @ 60 mls/hr IV.SIG WITH DIALYSIS PRN PRN Reason: hypotension / volume replace Sodium Chloride (Ns Inj) 1,000 mls @ 0 mls/hr OTHER .Q0M PRN PRN Reason: for prime and rinse back Sodium Chloride (Ns Inj) 1,000 mls @ 0 mls/hr IV.CONT .Q0M PRN PRN Reason: hypotension / volume replace Sodium Chloride (Ns Inj) 1,000 mls @ 200 mls/hr OTHER .Q5H PRN PRN Reason: for dialyzer flush PRN Lactulose (Lactulose Liq) 30 ml PO DAILY PRN PRN Reason: SEVERE CONSITIPATION Loratadine (Claritin) 10 mg PO DAILY [facility] Mannitol (Mannitol Inj) 12.5 gm IV.PUSH UNSCH PRN PRN Reason: hypotension / volume replace Miscellaneous Information (Mis Nursing Information) 0 each OTHER UNSCH PRN PRN Reason: SEE LABEL COMMENTS Stop: 07/28/18 09:38 Morphine Sulfate (Morphine Inj) 2 mg IV.PUSH Q1H PRN PRN Reason: BREAKTHROUGH PAIN Multivitamins (Theragran) 1 tab PO DAILY [facility] Nitroglycerin (Nitrostat Sl) 0.4 mg SL Q5M PRN PRN Reason: CHEST PAIN Ondansetron HCl (Zofran Inj) 4 mg IV.PUSH UNSCH PRN PRN Reason: NAUSEA OR VOMITING Pantoprazole Sodium (Protonix) 40 mg PO DAILY [facility] Patient Own Medication ( Tiotropium [place] [ Spiriva Respimat] 2 Puff) 0 each INH DAILY [facility] Senna/Docusate Sodium (Larisa-Colace) 1 tab PO BID [facility] Last Admin: 07/27/18 21:37 Dose: 1 tab Sennosides (Senokot) 17.2 mg PO Q12H PRN PRN Reason: Moderate Constipation Sodium Chloride (Ns Flush) 0 ml IV.FLUSH PRN PRN PRN Reason: FLUSH AFTER USING IV ACCESS Sodium Chloride (Ns Flush) 5 ml IV.FLUSH PRN PRN PRN Reason: flush each lumen during HD Vitamin B Complex/Vit C/Folic Acid (Nephrocaps) 1 tab PO DAILY [facility] Vitamin D (Vitamin D3) 5,000 unit PO DAILY [facility] Exam Vital signs: Vital Signs 07/27/18 06:42 07/27/18 09:36 07/27/18 09:45 Temperature 98.2 F 98.4 F Pulse Rate 82 81 79 Respiratory Rate 18 16 16 Blood Pressure 133/66 128/60 124/58 L Pulse Oximetry 98 95 98 07/27/18 10:00 07/27/18 10:15 07/27/18 10:30 Temperature Pulse Rate 75 78 81 Respiratory Rate 14 12 12 Blood Pressure 123/58 L 154/70 H 146/65 H Pulse Oximetry 97 97 97 07/27/18 11:00 07/27/18 12:00 07/27/18 13:00 Temperature 97.6 F Pulse Rate 77 77 77 Respiratory Rate 13 14 14 Blood Pressure 131/62 129/63 133/61 Pulse Oximetry 97 97 96 07/27/18 14:00 07/27/18 15:00 07/27/18 16:49 Temperature 97.8 F Pulse Rate 77 77 75 Respiratory Rate 15 22 16 Blood Pressure 129/59 L 124/60 131/62 Pulse Oximetry 97 96 94 L 07/27/18 17:00 07/27/18 18:16 07/27/18 19:00 Temperature 97.8 F Pulse Rate 76 75 76 Respiratory Rate 11 L 20 20 Blood Pressure 125/60 116/58 L 121/51 L Pulse Oximetry 95 93 L 95 Intake & Output 07/27/18 07/27/18 07/28/18 06:59 18:59 06:59 Intake Total 500 / 500 Output Total 100 / 100 Balance 400 / 400 Weight 54.7 kg Intake: Anesthesia Amount 500 / 500 Output: Estimated Blood Loss 100 / 100 Other: Weight On Admission 54.7 kg Results - Lab Results 07/27/18 06:40 07/27/18 06:40 Most recent lab results Calcium 8.7 mg/dL (8.5-10.1) 07/27/18 06:40 Assessment and Plan - Assessment (1) End stage renal disease on dialysis Code(s): N18.6 - End stage renal disease; Z99.2 - Dependence on renal dialysis Status: Acute Plan: Patient seen and examined, agree with above. Patient with end stage renal disease, on HD. Now has AVF surgery, Not in fluid overload status, no urgent need for HD. HD will be in AM.
[2018-07-27 15:00] LABS: Hepatitis A IgM Antibody Nonreactive (Nonreactive); Hepatitits B Surface Antigen Nonreactive (Nonreactive)
[2018-07-27] MEDS: Heparin - SQ 10,000 UNITS/ML Vial SQ SCH ×2 (17:57→17:58)
[2018-07-27] MEDS ORDERED: KRILL OM DHA EPA PHOSPHO AST PO SCH (21:00)
[2018-07-27] MEDS: Senna/Docusate Sodium 8.6/50 MG Tablet PO SCH (21:37)
[2018-07-28 05:12] LABS: Hematocrit 32.1 % (35.0-46.0); Hemoglobin 10.4 gm/dL (11.6-15.3); Mean Corpuscular HGB Conc 32.4 % (32.0-36.0); Mean Corpuscular Hemoglobin 33.4 pg (27.0-34.0); Mean Platelet Volume 8.5 fL (7.0-11.0); Platelet Count 178 th/mm3 (150-450); Red Blood Count 3.12 mil/mm3 (4.00-5.30); Red Cell Distribution Width 17.2 % (11.6-17.2); White Blood Count 5.3 th/mm3 (4.0-11.0)
[2018-07-28 05:44] LABS: Calcium 8.9 mg/dL (8.5-10.1); Carbon Dioxide 24.9 meq/L (21.0-32.0); Potassium 4.6 meq/L (3.5-5.1)
--- NOTE | 2018-07-28 08:22 | P.PNVS ---
Subjective Post Op Day #: 1 Procedure: LEFT brach-ax AVG Subjective/Hospital Course: 72/F s/p L UE AVF (LEFT brach-ax AV- graft) Pain controlled Mild ecchymosis betsy incision-no drainage No fever or chills No hand pain Objective Vital Signs / I&O: Vital Signs 07/27/18 09:36 07/27/18 09:45 07/27/18 10:00 Temperature 98.4 F Pulse Rate 81 79 75 Respiratory Rate 16 16 14 Blood Pressure 128/60 124/58 L 123/58 L Pulse Oximetry 95 98 97 07/27/18 10:15 07/27/18 10:30 07/27/18 11:00 Temperature 97.6 F Pulse Rate 78 81 77 Respiratory Rate 12 12 13 Blood Pressure 154/70 H 146/65 H 131/62 Pulse Oximetry 97 97 97 07/27/18 12:00 07/27/18 13:00 07/27/18 14:00 Temperature Pulse Rate 77 77 77 Respiratory Rate 14 14 15 Blood Pressure 129/63 133/61 129/59 L Pulse Oximetry 97 96 97 07/27/18 15:00 07/27/18 16:49 07/27/18 17:00 Temperature 97.8 F Pulse Rate 77 75 76 Respiratory Rate 22 16 11 L Blood Pressure 124/60 131/62 125/60 Pulse Oximetry 96 94 L 95 07/27/18 18:16 07/27/18 19:00 07/27/18 20:00 Temperature 97.8 F 97.8 F Pulse Rate 75 76 71 Respiratory Rate 20 20 18 Blood Pressure 116/58 L 121/51 L 130/63 Pulse Oximetry 93 L 95 95 07/27/18 21:00 07/27/18 22:08 07/27/18 23:00 Temperature Pulse Rate 76 80 Respiratory Rate Blood Pressure Pulse Oximetry 97 07/28/18 00:00 07/28/18 02:00 07/28/18 03:00 Temperature 98.2 F Pulse Rate 78 76 85 Respiratory Rate 16 Blood Pressure 132/59 L Pulse Oximetry 95 07/28/18 04:00 07/28/18 05:00 07/28/18 06:00 Temperature 98.9 F Pulse Rate 78 74 73 Respiratory Rate 16 Blood Pressure 114/56 L Pulse Oximetry 95 Intake & Output 07/27/18 07/28/18 07/28/18 18:59 06:59 18:59 Intake Total 500 / 500 Output Total 100 / 100 400 / 400 Balance 400 / 400 -400 / -400 Weight 135.5 kg Intake: Anesthesia Amount 500 / 500 Output: Urine 400 / 400 Estimated Blood Loss 100 / 100 Other: # Voids 2 Exam: L UE incision intact w/ ecchymosis betsy incision/ no swelling or drainage No hand pain UE 5/5 warm w/ motor intact + thrill near AVF Laboratory Results - last 24 hr 07/27/18 07/27/18 07/28/18 09:51 13:28 04:40 WBC 5.3 RBC 3.12 L Hgb 10.4 L Hct 32.1 L MCV 103.0 H MCH 33.4 MCHC 32.4 RDW 17.2 Plt Count 178 MPV 8.5 Sodium Potassium Chloride Carbon Dioxide Anion Gap BUN Creatinine Estimated GFR POC Glucose 154 H Random Glucose Calcium Hepatitis A IgM Ab Nonreactive Hep Bs Antigen Nonreactive Hep B Core IgM Ab Nonreactive Hep C IgG Ab Nonreactive 07/28/18 04:40 WBC RBC Hgb Hct MCV MCH MCHC RDW Plt Count MPV Sodium 136 Potassium 4.6 Chloride 103 Carbon Dioxide 24.9 Anion Gap 8 BUN 44 H Creatinine 3.86 H Estimated GFR 11 L POC Glucose Random Glucose 113 H Calcium 8.9 Hepatitis A IgM Ab Hep Bs Antigen Hep B Core IgM Ab Hep C IgG Ab Assessment and Plan - Assessment (1) End stage renal disease on dialysis Code(s): N18.6 - End stage renal disease; Z99.2 - Dependence on renal dialysis Status: Acute - Plan Pt s/p LEFT arm AVG pain controlled Pt doing well w/o hand pain Incision intact Plan Pt clear for d/c post hemodialysis Discussed out pt care and management w/ pt Arranged out pt follow up Kathy Kwok NP [facility] [phone] Discharge Planning: POD#1
--- NOTE | 2018-07-28 08:32 | P.DS ---
Discharge Summary - Admission Date 07/27/18 09:11 - Admission Diagnosis (1) End stage renal disease on dialysis - Discharge Date 07/28/18 - Discharge Diagnosis (1) AVF (arteriovenous fistula) Status: Acute - Summary Brief History from admission: 72 yo female with ESRD needs HD access. Has been on HD for some time but thought her renal function was improving. Now has had 2 catheters, most recently yesterday and no F/C. Ari HD yesterday. RIGHT handed. No autogenous veins. Presents for LEFT arm AVG Procedure: LEFT brach-ax AVG Significant Findings: No hand pain + thrill incision intact Abnormal Lab Results 07/27/18 07/27/18 07/28/18 09:51 13:28 04:40 WBC 5.3 RBC 3.12 L Hgb 10.4 L Hct 32.1 L MCV 103.0 H MCH 33.4 MCHC 32.4 RDW 17.2 Plt Count 178 MPV 8.5 Sodium Potassium Chloride Carbon Dioxide Anion Gap BUN Creatinine Estimated GFR POC Glucose 154 H Random Glucose Calcium Hepatitis A IgM Ab Nonreactive Hep Bs Antigen Nonreactive Hep B Core IgM Ab Nonreactive Hep C IgG Ab Nonreactive 07/28/18 04:40 WBC RBC Hgb Hct MCV MCH MCHC RDW Plt Count MPV Sodium 136 Potassium 4.6 Chloride 103 Carbon Dioxide 24.9 Anion Gap 8 BUN 44 H Creatinine 3.86 H Estimated GFR 11 L POC Glucose Random Glucose 113 H Calcium 8.9 Hepatitis A IgM Ab Hep Bs Antigen Hep B Core IgM Ab Hep C IgG Ab Hospital Course: 72/F with a hx of ESRD on HD Pt s/p LEFT brach-ax AVG POD 1 Pain controlled No hand pain Incision intact Offered Rx for pain management- pt refused at this time Pt clear for D/C post HD Arranged out pt f.u - Discharge Instructions Any questions or concerns: Call [facility] at [facility] [phone] Discharge Plan - Discharge Disposition Patient Disposition: 01 Discharge Home - Discharge Condition Condition: Good - Discharge Order Discharge Orders: Discharge Order (Routine); Ordered 07/28/18 Ordered By: Kathy Kwok - Physicians Team Primary Care Provider: Primary Care Franklyn,Jordyn Attending Provider: Everett Cueto Other Providers: Yuriy Mckeon MD - Rxs /Orders / Referrals /Forms Prescriptions: Continue aspirin 81 mg Tablet,Chewable 81 mg PO DAILY bumetanide 1 mg Tablet 2 mg PO DAILY Qty: 30 RF: 0 carvedilol [Coreg] 3.125 mg tablet 3.125 mg PO DAILY cholecalciferol (vitamin D3) [Vitamin D3] 5,000 unit Tablet 5,000 unit PO DAILY clopidogrel 75 mg Tablet 75 mg PO DAILY docusate sodium 100 mg Tablet 100 mg PO DAILY ferrous gluconate 236 mg (27 mg iron) Tablet 236 mg PO DAILY ferrous sulfate 325 mg (65 mg iron) Tablet 325 mg PO DAILY yroff-[id number]-etj-hdx-lpancjz-ast [krill oil] 1,[id number] mg Capsule 1 cap PO BID loratadine 10 mg Tablet 10 mg PO DAILY multivitamin Tablet 1 tab PO DAILY pantoprazole 40 mg Tablet,Delayed Release (Dr/Ec) 40 mg PO DAILY rosuvastatin 40 mg Tablet 40 mg PO HS tiotropium bromide [Spiriva Respimat] 1.25 mcg/actuation Mist 2 puff INHALATION DAILY vit B comp no.2-qhklq-I-biotin [RUG SAMPLE BEVELER-Natalee Rx] 1-60-300 mg-mg-mcg Tablet 1 tab PO DAILY Referrals: Primary Care Jordyn Estes [Primary Care Provider] - See Instructions Everett Cueto MD [Physician] - See Instructions (follow up on 08/26/18 at 9: 30 in our out pt clinic ) - Discharge Instructions Patient Printed Instructions: Dialysis Diet (GEN), Arteriovenous Graft Placement for Hemodialysis (DC), End Stage Kidney Disease (GEN) - Post Discharge Care Plan Care Plan Goals: Discharge Care Plan Goals After Vascular Surgery Contact: Please call [phone] if you have any problems or have questions regarding your hospitalization. Directions to Meet Your Goals: 1. Diet: * You may resume a regular diet as you were eating at home before your admission. 2. Activity: * Increase your activity level gradually. * Keep surgical extremities elevated when at rest. This will help limit the swelling, bruising and discomfort normally present after surgery. * Walking is a good form of light exercise. Go for a walk at least 3 times per day. * No heavy lifting (lifting over 10 pounds) for at least 4 weeks from surgery. * Check with your surgeon to ensure when you are cleared for heavy lifting and full-intensity exercising. * Your strength will gradually improve. * No driving or operating motorized vehicles while on prescription pain medications. * No swimming until wounds fully healed. * Return to work when cleared by MD/RAMA/AMY. 3. Bathing: Shower daily. * Gently let soap and water run over your incision and pat dry. Do not scrub the incision/wound. * Don't soak in a bath or submerge your incision in water until your incision is healed and evaluated by your physician at follow-up (usually two weeks). 4. Wound Care: INCISION SITE CARE INSTRUCTIONS: * You may leave your incision open to air. * Keep your incision clean and dry, unless showering. See above. * Moisture near the incision will cause the wound to open. * No lotions, creams, ointments, or powders on incisions until they are well- healed. * If you have glue over the incision(s), allow it to fall off naturally in 1-3 weeks * If present, kaylynn/sutures will be removed 2-3 weeks after surgery during your follow-up clinic visit. * If present, change dressing/bandage when soaked/soiled as needed. * Observe wound daily, checking for signs and symptoms of infection including: foul odor, drainage from the incision, increased redness, increased pain at incision, or increased swelling. 5. Pain Control: Expect post-operative pain for 1-4 weeks after surgery. Your pain will improve gradually. * You may have been provided with a prescription for pain medication. Please take as directed, and be aware of side effects such as drowsiness, constipation and mild stomach discomfort. Pain pills on an empty stomach can cause nausea , so eat a small amount of food, such as crackers, when taking these pills. * Take chyd-uew-gdannju stool softeners (Colace or Senna) with your prescribed pain medication. * Acetaminophen (500mg every 6 hours) or Ibuprofen (400mg every 6 hours) may be used in conjunction with narcotics to relieve pain. DO NOT take more than 4 grams (4000mg) of Tylenol in one day, as this can harm your liver. DO NOT take ibuprofen IF: you have an allergy to non-steroidal anti-inflammatory medications, you are taking Coumadin, you have been told you have kidney problems, or you have a history of gastrointestinal bleeding or ulcers. DO NOT take more than 3.2 grams (3200mg) of ibuprofen in one day. * You may also find relief from using heat packs or pads or ice packs. 6. Bowel Regimen for Constipation: * People who undergo surgery are likely to develop post-operative constipation. Exposure to narcotics and changes in diet, fluid intake, and physical activity are known contributors to constipation. We recommend routine stool softeners and/ or laxatives after surgery for most patients. Start by taking one medication. You can increase as directed to relieve constipation. Stop taking these medications if you develop diarrhea. These medications are available over-the- counter and do not require a prescription: * Colace is a stool softener. We recommend starting at 100mg orally twice per day as needed for soft stools and increase to a maximum of 200mg twice daily as needed. * Senna is a laxative that works by keeping water in the intestine to help stool move along the intestinal tract. Take 1 tablet daily as needed for soft stool and increase to a maximum of 2 tablets twice daily as needed. Take Senna with two full glasses of water each time. * Miralax, Dulcolax and Milk of Magnesia are other nwxo-oqo-hyryvwt laxatives that may be used as needed for post-operative constipation. * Drink 6-8 glasses of water per day. * Consume 15-30g of fiber per day: * Metamucil powder, 1-2 tablespoons 1-2 times/day OR Benefiber powder, 2 tablespoons 4 times/day. * Avoid straining. 7. Follow-Up: Do Not miss your follow-up appointment. Keep up with all your appointments and yearly check ups If you have any of the following symptoms please call [phone] immediately: Excessive swelling of the affected extremity Sudden onset of severe or unusual pain in the affected extremity Pain that gets worse or is not relieved by medication Warmth, redness, or swelling in the skin around the wound Foul drainage from incision Extensive bruising or discoloration Wound that opens up or pulls apart Fever above 101.5F or shaking chills Nausea or vomiting Severe diarrhea or severe constipation Dizziness or fainting Chest pain, shortness of breath, or increased work of breathing Weight gain >10 lbs over 3-4 days Inability to urinate for more than 6 hours Cloudy or foul smelling urine Urge to urinate more often than usual Symptoms to Report to Your Doctor: Temperature 101F or higher Pain uncontrolled by medication Drainage or foul odor from incision Extensive bruising or discoloration Chest pain Shortness of breath Nausea, vomiting or dizziness Call 911: Call 911 right away if you have: Sudden onset of chest pain that is not relieved by medications Shortness of breath
[2018-07-28] MEDS ORDERED: Docusate Sodium 100 MG Capsule PO SCH (09:00)
[2018-07-28] MEDS ORDERED: Loratadine 10 MG Tablet PO SCH (09:00)
[2018-07-28] MEDS ORDERED: TIOTROPIUM BROMIDE INH SCH (09:00)
[2018-07-28] MEDS ORDERED: Ferrous Sulfate 325 MG Tablet PO SCH ×2 (09:00)
[2018-07-28] MEDS ORDERED: Vitamin B Complex/Vit C/Folic Tablet PO SCH (09:00)
--- NOTE | 2018-07-28 11:23 | P.PNNP ---
Subjective Interval history: Seen during hemodialysis tolerating well. Plans for discharge today. <Candi Servin - Last Filed: 07/28/18 11:21> Physical Exam Vital signs: Vital Signs 07/27/18 12:00 07/27/18 13:00 07/27/18 14:00 Temperature Pulse Rate 77 77 77 Respiratory Rate 14 14 15 Blood Pressure 129/63 133/61 129/59 L Pulse Oximetry 97 96 97 07/27/18 15:00 07/27/18 16:49 07/27/18 17:00 Temperature 97.8 F Pulse Rate 77 75 76 Respiratory Rate 22 16 11 L Blood Pressure 124/60 131/62 125/60 Pulse Oximetry 96 94 L 95 07/27/18 18:16 07/27/18 19:00 07/27/18 20:00 Temperature 97.8 F 97.8 F Pulse Rate 75 76 71 Respiratory Rate 20 20 18 Blood Pressure 116/58 L 121/51 L 130/63 Pulse Oximetry 93 L 95 95 07/27/18 21:00 07/27/18 22:08 07/27/18 23:00 Temperature Pulse Rate 76 80 Respiratory Rate Blood Pressure Pulse Oximetry 97 07/28/18 00:00 07/28/18 02:00 07/28/18 03:00 Temperature 98.2 F Pulse Rate 78 76 85 Respiratory Rate 16 Blood Pressure 132/59 L Pulse Oximetry 95 07/28/18 04:00 07/28/18 05:00 07/28/18 06:00 Temperature 98.9 F Pulse Rate 78 74 73 Respiratory Rate 16 Blood Pressure 114/56 L Pulse Oximetry 95 07/28/18 07:00 Temperature Pulse Rate 74 Respiratory Rate Blood Pressure Pulse Oximetry Intake & Output 07/27/18 07/28/18 07/28/18 18:59 06:59 18:59 Intake Total 500 / 500 Output Total 100 / 100 400 / 400 Balance 400 / 400 -400 / -400 Weight 135.5 kg Intake: Anesthesia Amount 500 / 500 Output: Urine 400 / 400 Estimated Blood Loss 100 / 100 Other: # Voids 2 Narrative: GENERAL: Alert and oriented. SKIN: Warm and dry. NECK: Supple, trachea midline. No JVD; CARDIOVASCULAR: Regular rate and rhythm without murmurs, gallops, or rubs. Right IJ permacath, left arm AVG positive thrill and bruit. RESPIRATORY: Breath sounds equal bilaterally. No accessory muscle use. GASTROINTESTINAL: Abdomen soft, non-tender, nondistended. MUSCULOSKELETAL: No cyanosis, or edema. BACK: Nontender without obvious deformity. No CVA tenderness. <Candi Servin - Last Filed: 07/28/18 11:21> Vital signs: Vital Signs 07/27/18 22:08 07/27/18 23:00 07/28/18 00:00 Temperature 98.2 F Pulse Rate 80 78 Respiratory Rate 16 Blood Pressure 132/59 L Pulse Oximetry 97 95 07/28/18 02:00 07/28/18 03:00 07/28/18 04:00 Temperature 98.9 F Pulse Rate 76 85 78 Respiratory Rate 16 Blood Pressure 114/56 L Pulse Oximetry 95 07/28/18 05:00 07/28/18 06:00 07/28/18 07:00 Temperature Pulse Rate 74 73 74 Respiratory Rate Blood Pressure Pulse Oximetry 07/28/18 13:00 07/28/18 14:00 07/28/18 14:39 Temperature 98.5 F Pulse Rate 76 76 Respiratory Rate 18 Blood Pressure 147/65 H Pulse Oximetry 97 97 Intake & Output 07/28/18 07/28/18 07/29/18 06:59 18:59 06:59 Intake Total 480 / 480 Output Total 400 / 400 2125 / 2125 Balance -400 / -400 -1645 / -1645 Weight 135.5 kg Intake: Oral 480 / 480 Output: Urine 400 / 400 125 / 125 Hemodialysis Amount 1999 / 1999 Other: # Voids 2 <Yuriy Mckeon - Last Filed: 07/28/18 21:30> Assessment and Plan - Assessment (1) End stage renal disease on dialysis Code(s): N18.6 - End stage renal disease; Z99.2 - Dependence on renal dialysis Status: Acute Plan: End stage renal disease on HD on //WED Has right IJ permacath AVG with positive thrill and bruit pain is well controlled. Seen during hemodialysis plan to remove 2 liters of fluid Discharge home today. <Candi Servin - Last Filed: 07/28/18 11:21> - Assessment (1) End stage renal disease on dialysis Code(s): N18.6 - End stage renal disease; Z99.2 - Dependence on renal dialysis Status: Acute Plan: Patient seen and examined, agree with above. Post AVF, stable, possible D/C today. <Yuriy Mckeon - Last Filed: 07/28/18 21:30>
[2018-07-28] MEDS: Senna/Docusate Sodium 8.6/50 MG Tablet PO SCH (11:25)
[2018-07-28] MEDS ORDERED: Acetaminophen 325 MG Tablet PO ONE (12:44)
--- NOTE | 2018-07-28 12:57 | P.PNVS ---
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 B UE warm w/ motor intact Strong triphasic Doppler signals- Left palmar arch/Radial Objective Vital Signs / I&O: Vital Signs 07/27/18 13:00 07/27/18 14:00 07/27/18 15:00 Temperature 97.8 F Pulse Rate 77 77 77 Respiratory Rate 14 15 22 Blood Pressure 133/61 129/59 L 124/60 Pulse Oximetry 96 97 96 07/27/18 16:49 07/27/18 17:00 07/27/18 18:16 Temperature Pulse Rate 75 76 75 Respiratory Rate 16 11 L 20 Blood Pressure 131/62 125/60 116/58 L Pulse Oximetry 94 L 95 93 L 07/27/18 19:00 07/27/18 20:00 07/27/18 21:00 Temperature 97.8 F 97.8 F Pulse Rate 76 71 76 Respiratory Rate 20 18 Blood Pressure 121/51 L 130/63 Pulse Oximetry 95 95 07/27/18 22:08 07/27/18 23:00 07/28/18 00:00 Temperature 98.2 F Pulse Rate 80 78 Respiratory Rate 16 Blood Pressure 132/59 L Pulse Oximetry 97 95 07/28/18 02:00 07/28/18 03:00 07/28/18 04:00 Temperature 98.9 F Pulse Rate 76 85 78 Respiratory Rate 16 Blood Pressure 114/56 L Pulse Oximetry 95 07/28/18 05:00 07/28/18 06:00 07/28/18 07:00 Temperature Pulse Rate 74 73 74 Respiratory Rate Blood Pressure Pulse Oximetry Intake & Output 07/27/18 07/28/18 07/28/18 18:59 06:59 18:59 Intake Total 500 / 500 Output Total 100 / 100 400 / 400 1999 / 1999 Balance 400 / 400 -400 / -400 -1999 Weight 135.5 kg Intake: Anesthesia Amount 500 / 500 Output: Urine 400 / 400 Hemodialysis Amount 1999 Estimated Blood Loss 100 / 100 Other: # Voids 2 Physical Exam: L UE incision intact w/ ecchymosis betsy incision/No swelling or drainage No hand pain UE 5/5 warm w/ motor intact + thrill near AVF Strong triphasic Doppler signals- LEFT palmar arch/Radial Laboratory Results - last 24 hr 07/27/18 07/28/18 07/28/18 13:28 04:40 04:40 WBC 5.3 RBC 3.12 L Hgb 10.4 L Hct 32.1 L MCV 103.0 H MCH 33.4 MCHC 32.4 RDW 17.2 Plt Count 178 MPV 8.5 Sodium 136 Potassium 4.6 Chloride 103 Carbon Dioxide 24.9 Anion Gap 8 BUN 44 H Creatinine 3.86 H Estimated GFR 11 L Random Glucose 113 H Calcium 8.9 Hepatitis A IgM Ab Nonreactive Hep Bs Antigen Nonreactive Hep B Core IgM Ab Nonreactive Hep C IgG Ab Nonreactive Assessment and Plan - Assessment (1) End stage renal disease on dialysis Code(s): N18.6 - End stage renal disease; Z99.2 - Dependence on renal dialysis Status: Acute - Plan Pt s/p LEFT arm AVG Pt c/o sudden onset L hand pain while in HD Pt assessed and appears to have sufficient perfusion to her L UE Plan Ordered Acetaminophen for pain control Pt clear for d/c once pain is controlled Discussed out pt care and management w/ pt Pt advised to call the office tomorrow if pain progresses or worsens Kathy Kwok NP [facility]/[place] [phone] Discharge Planning: POD#1
[2018-07-28 14:23] VITALS: BP 147/65; RESP 18; TEMP 98.5; O2SAT 97
[2018-07-28 14:27] VITALS: PULSE 76
== END 2018-07-28 15:29 | disposition home or self-care (01) ==
LOC: HSDC 05:53 → HSDI 05:53 → HCPC 18:35
PROVIDERS: ADMIT Surgery; ATTEND Surgery